=== PATIENT | male | born 1950 | race Caucasian/White ===

== ENCOUNTER 2018-09-25 05:01 | Day surgery (SDC) | payer OTHER, BC ==
[2018-09-25 08:23] VITALS: BMI 27.8
[2018-09-25] MEDS ORDERED: DEXAMETHASONE SOD PHOSPHATE/PF 10 MG/ML SDV ONE (09:15)
[2018-09-25] MEDS ORDERED: ROPIVACAINE HCL 0.5% 30ML VIAL ONE (09:16)
[2018-09-25] MEDS ORDERED: MIDAZOLAM HCL 2 MG/2 ML SINGLE DOSE VIAL ONE ×3 (09:17→10:24)
--- NOTE | 2018-09-25 09:24 | HP ---
Satellite H - Chief Complaint Chief Complaint: left shoulder pain - Past Medical History Allergies/Adverse Reactions: Allergies Allergy/AdvReac Type Severity Reaction Status Date / Time Penicillins Allergy Severe Rash Verified 06/13/18 13:23 - Current Medications Current Medications: Home Medications Medication Instructions Recorded Omeprazole [Prilosec] 40 mg PO DAILY 01/26/12 Valsartan/Hydrochlorothiazide 1 combo PO DAILY 07/08/12 [Diovan Hct 80-12.5 mg Tablet -] Atorvastatin Ca [Lipitor] 10 mg PO DAILY 11/24/13 Budesonide [Rhinocort Aqua] 8.6 gm NS PRN PRN 06/22/14 Olopatadine HCl [Pataday] 1 drop IO DAILY PRN 06/22/14 Ibuprofen [Advil -] 200 mg PO PRN PRN 12/09/14 Oxycodone HCl/Acetaminophen 1 - 2 tab PO Q6H #30 tab MDD 6 09/25/18 [Percocet 5-325 mg Tablet] Satellite Physical Exam - Physical Examination Vital Signs: Vital Signs Period Temp Pulse Resp BP Sys/Carrillo Pulse Ox Last 24 Hr 97.5 F-97.5 F 98-98 18-18 133-133/79-79 98 General Appearance: Well Nourished, Well Developed, Alert & Oriented x3 ENT: Clear Lung: Normal air movement Heart: Regular rate & rhythm Extremities: Other (left shoulder- + ttp, decr rom, + empty can, + neer, + ma, nvi MRI + rct) Neurological: Intact, Alert, Oriented Satellite Impression/Plan - Impression/Plan Impression: left shoulder rct Operative Procedure: left shoulder arthroscopy with RCYELENA Blackwell Date to be Performed: 09/25/18
[2018-09-25] MEDS ORDERED: ceFAZolin SODIUM 1 GM VIAL IVPB ONE (10:05)
[2018-09-25] MEDS ORDERED: ceFAZolin SODIUM 1 GM VIAL ONE (10:08)
[2018-09-25] MEDS ORDERED: KETAMINE HCL 200 MG/20 ML VIAL ONE (10:22)
[2018-09-25] MEDS ORDERED: ESMOLOL HCL 100,000 MCG/10 ML VIAL ONE (10:26)
[2018-09-25] MEDS ORDERED: METOPROLOL TARTRATE 5 MG/5 ML VIAL ONE (10:38)
[2018-09-25] MEDS ORDERED: LABETALOL HCL 5 MG/1 ML (100MG/20 ML VIAL) ONE (10:38)
--- NOTE | 2018-09-25 10:56 | OP ---
Operative Note - Note: Operative Date: 09/25/18 ([facility]) Pre-Operative Diagnosis: left shoulder rct Operation: left shoulder arthroscopy with RCR Implants: arthrex speedbridge Post-Operative Diagnosis: Same as Pre-op Surgeon: Gabe Sanderson Banker Mason: Benoit Martinez Anesthesiologist/ASSOCIATE PROFESSOR OF BIBLICAL STUDIES: Carol Doe Anesthesia: Local, MAC Specimens Removed: shavings Estimated Blood Loss (mls): 5 Operative Report Dictated: Yes
[2018-09-25] MEDS ORDERED: oxyCODONE HCL 5 MG TABLET PO PRN ×2 (11:05)
[2018-09-25] MEDS ORDERED: ONDANSETRON 4 MG/2 ML VIAL IVPUSH PRN (11:05)
[2018-09-25] MEDS ORDERED: ACETAMINOPHEN 1000 MG/100 ML VIAL (NON FORMULARY) IVPB ONE (11:06)
[2018-09-25] MEDS ORDERED: LACTATED RINGERS SOLUTION 1,000 ML IV SCH (11:15)
[2018-09-25] MEDS ORDERED: ACETAMINOPHEN INJECTION 100 ML IVPB ONE (11:40)
--- NOTE | 2018-09-25 11:49 | OP ---
DATE OF OPERATION: 09/25/2018 PREOPERATIVE DIAGNOSIS: Left rotator cuff tear. POSTOPERATIVE DIAGNOSIS: Left rotator cuff tear. PROCEDURE: Arthroscopy of left shoulder with subacromial decompression and left rotator cuff repair. SURGICAL ATTENDING: Gabe Sanderson MD ANESTHESIA: Regional and general. CLOSURE: SpeedBridge for rotator cuff and 3-0 nylon for skin. ESTIMATED BLOOD LOSS: Negligible. COMPLICATIONS: None. CONDITION: To recovery in stable condition. DESCRIPTION OF OPERATIVE PROCEDURE: The patient taken to the operating room on September 25, 2018. Regional and general anesthesia was administered by the anesthesiologist. IV Kefzol was administered prophylactically prior to the case. The patient was placed in the beach chair position with all prominences well padded. The shoulder area was prepped and draped in the usual sterile fashion. A posterior portal was made 2 fingerbreadths below the acromion using a 15 blade followed by a blunt trocar. Examination of the glenohumeral joint revealed the following: There was some deficit in the glenoid articular cartilage on the anterior-inferior quadrant down to bone. The rest of the cartilage looked basically intact. Looking at the humeral head, there was diffuse grade 2-3/3 changes. There were no loose bodies in the axillary pouch. The labrum was intact circumferentially. The biceps tendon was intact through its insertion. Subscapularis tendon was not to be seen in the shoulder joint and was not found. The fluid was drained from the shoulder. Trocar was removed. The posterior trocar was redirected in the subacromial space, and accessory lateral portal was made, and an anterior portal at the AC joint was made. The bursectomy was performed using the ArthroCare device. The surface of the acromion was burred to the appropriate level gaining sufficient height for the rotator cuff. A crescent supraspinatus tear was found. The greater tuberosity was debrided exposing some bleeding bone. Two medial row anchors were malleted and screwed into place with preloaded FiberTape suture. They were passed through the rotator cuff in a fanned out position using Scorpio needle punch and docked anteriorly. One anterior and one posterior limb was fixated to posterior lateral anchor, and 1 anterior and 1 posterior limb was fixated to an anterior lateral row anchor gaining excellent repair of the supraspinatus to the greater tuberosity. Sutures were cut snug. The shoulder was irrigated. Fluid was drained. The portals were closed with 3-0 nylon. Sterile pressure dressing was applied. The patient awakened from anesthesia and transferred to recovery in stable condition with no complication. Estimated blood loss negligible. Sheela [id number]
[2018-09-25 12:34] VITALS: TEMP 97.9
[2018-09-25 13:59] VITALS: BP 109/64; PULSE 102
--- NOTE | 2018-09-27 18:38 | PATH ---
Surgical Pathology Report Patient Name: VINCENT JOYNER JR [facility]. Rec. #: [id number] /Age/Gender: 1950 (Age: 68) / M Account: [id number] Location: [facility] SURGICAL Taken: 09/25/2018 Received: 09/25/2018 Reported: 09/27/2018 Physicians: Gabe Sanderson M.D. Specimen(s) Received LEFT SHOULDER SHAVINGS Clinical History Left shoulder tear Final Diagnosis SHOULDER SHAVINGS, LEFT, ARTHROSCOPY: FRAGMENTS OF BENIGN SCANT CARTILAGE, DENSE FIBROCONNECTIVE TISSUE, ADIPOSE TISSUE, SYNOVIUM, AND SKELETAL MUSCLE. Electronically Signed Penny Arora M.D. Gross Description Received in formalin, labeled "left shoulder shavings," is a 4.0 x 4.0 x 0.3 cm. aggregate of dent-yellow soft tissue fragments. A scheduling representative portion is submitted in one cassette. 09/26/2018 saudi09/26/2018
== END 2018-09-25 14:43 | disposition home or self-care (01) ==
LOC: JASU-SURG 05:01
PROVIDERS: ATTEND Orthopaedic Surgery
PROC: 0RNK4ZZ Release Left Shoulder Joint, Percutaneous Endoscopic Approach (ICD-10-PCS; 2018-09-25)
PROC: 0LQ24ZZ Repair Left Shoulder Tendon, Percutaneous Endoscopic Approach (ICD-10-PCS; principal; 2018-09-25 09:30)
DX: M75.102 Unspecified rotator cuff tear or rupture of left shoulder, not specified as traumatic (principal)
CPT/HCPCS: 88304-TC; 94760; J0131

== ENCOUNTER 2019-05-16 04:19 | Emergency (ER) | payer OTHER, BC ==
[2019-05-16 05:08] VITALS: TEMP 98.6; BMI 27.9
--- NOTE | 2019-05-16 06:11 | PDOC ---
History of Present Illness - General Chief Complaint: Allergic Reaction Stated Complaint: ALLERGIC RX Time Seen by Provider: 05/16/19 05:48 - History of Present Illness Initial Comments: 69yo M with PMH of HTN, HLD, ischemic colitis complaining of "I haven't slept in four days" due to a pruritic rash. Patient reports that he was admitted to [facility] for ischemic colitis where he was medically managed with levaquin and flagyl. Patient had some ankle swelling for which his primary care doctor started him on HCTZ which he has taken for eight days. Patient states the swelling has improved, however, he developed a pruritic rash on his legs, arms, and neck. He saw his primary care physician again yesterday and was prescribed hydroxyzine and prednisone. After taking these medicines, the rash worsened. Patient reports lessened po intake due to the discomfort of his rash. Denies new exposures such as new soaps, lotions, detergents, clothes, pets, or foods. No tongue, lip swelling, oral lesions, scratchy throat. Denies fevers, chills, chest pain, or shortness of breath. PCP: Dr. Gould Past History - Past Medical History Allergies/Adverse Reactions: Allergies Allergy/AdvReac Type Severity Reaction Status Date / Time Penicillins Allergy Severe Rash Verified 05/16/19 05:08 Home Medications: Ambulatory Orders Omeprazole [Prilosec] 40 mg PO DAILY 01/26/12 Valsartan/Hydrochlorothiazide [Diovan Hct 80-12.5 mg Tablet -] 1 combo PO DAILY 07/08/12 Olopatadine HCl [Pataday] 1 drop IO DAILY PRN 06/22/14 Budesonide 8.6 gm NS DAILY 05/16/19 Folic Acid/Mv,Iron,Min/Lutein [Certa Plus Tablet] 1 each PO DAILY 05/16/19 Hydrochlorothiazide [Hctz -] 25 mg PO DAILY 05/16/19 Hydroxyzine HCl 25 mg PO DAILY 05/16/19 Prednisone 10 mg PO DAILY 05/16/19 Anemia: No Asthma: No Cancer: No Cardiac Disorders: No CVA: No COPD: No CHF: No Dementia: No Diabetes: No GI Disorders: Yes (ACID REFLUX) Disorders: No HTN: Yes Hypercholesterolemia: Yes Liver Disease: No Seizures: No Thyroid Disease: No - Surgical History Abdominal Surgery: No (HERNIA SX.) Appendectomy: No Cardiac Surgery: No Cholecystectomy: No Lung Surgery: No Neurologic Surgery: No Orthopedic Surgery: Yes (MAKOPLASTY B/L KNEES) - Suicide/Smoking/Psychosocial Hx Smoking History: Never smoked Have you smoked in the past 12 months: No Number of Cigarettes Smoked Daily: 10 Information on smoking cessation initiated: No 'Breaking Loose' booklet given: 07/09/12 Hx Alcohol Use: No Drug/Substance Use Hx: No Substance Use Type: None Hx Substance Use Treatment: No Review of Systems - Review of Systems Comments:: Constitutional: no fever, no chills HEENT: no throat pain, no dysphagia Cardiovascular: no chest pain, no palpitations Respiratory: no cough, no shortness of breath Gastrointestinal: no abdominal pain, no nausea Genitourinary: no dysuria, no frequency Musculoskeletal: no myalgia, no arthralgia Skin: +rash, +itching Neurologic: no headache, no weakness *Physical Exam - Vital Signs Last Vital Signs Temp Pulse Resp BP Pulse Ox 98.6 F 106 H 20 111/71 96 05/16/19 04:28 05/16/19 04:28 05/16/19 04:28 05/16/19 04:28 05/16/19 04:28 - Physical Exam Comments: General: Awake, alert, and fully oriented, in no acute distress Head: No signs of trauma Eyes: EOMI, sclera anicteric ENT: Moist mucus membranes Neck: Normal ROM, supple Lungs: Lungs clear, Normal breath sounds Cardio: Regular rhythm, S1 and S2 present Abdomen: Soft, nontender Extremities: Normal range of motion, Distal pulses present SKIN: Maculopapular urticarial rash present diffusely on BLE, BUE, and posterior neck with excoriations Neurologic: Cranial nerves II through XII grossly intact. Normal speech Medical Decision Making - Medical Decision Making 69yo M with PMH of HTN, HLD, ischemic colitis complaining of "I haven't slept in four days" due to a pruritic skin rash. DDX including but not limited to allergic reaction, angioedema, anaphylaxis, skin irritation Will treat with benadryl and ranitidine po 05/16/19 06:11 Patient states he prefers IV medicines IV Benadryl, Famotidine, Solu-medrol ordered Plan to reassess 05/16/19 06:53 Patient signed out to Dr. Sanders and xochitl team *DC/Admit/Observation/Transfer Diagnosis at time of Disposition: Allergic reaction Qualifiers: Encounter type: initial encounter Qualified Code(s): T78.40XA - Allergy, unspecified, initial encounter - Discharge Dispostion Disposition: HOME Condition at time of disposition: Improved - Referrals Referrals: Florencia Gould MD [Primary Care Provider] - - Patient Instructions Printed Discharge Instructions: DI for Adverse Drug Reaction -- Allergic Additional Instructions: You came into the ED for a rash. Your symptoms seem consistent with an allergic reaction. We gave you medicine which improved your symptoms. Follow-up with your primary care physician in the next 2-3 days to discuss this ED visit and to further evaluate your symptoms. Call and make an appointment. Your workup is not complete until you do so. Immediate medical attention is required if you have new or worsening symptoms including: Swollen tongue Difficulty breathing A sense of fullness, squeezing, or pressure in the chest Rapid, irregular heartbeat Nausea, vomiting Skin Rash If you think you have an emergency, call for medical help right away. - Post Discharge Activity
[2019-05-16] MEDS ORDERED: RANITIDINE HCL 150 MG TABLET (FP) PO ONE (06:20)
[2019-05-16] MEDS ORDERED: diphenhydrAMINE HCL 50 MG CAPSULE PO ONE (06:20)
[2019-05-16] MEDS ORDERED: diphenhydrAMINE HCL 25 MG CAPSULE (FP) PO ONE (06:34)
[2019-05-16] MEDS ORDERED: RANITIDINE HCL 150 MG TABLET (FP) ONE (06:35)
--- NOTE | 2019-05-16 06:44 | PDOC ---
Attending Attestation - Resident Resident Name: Angie Marin - ED Attending Attestation I have performed the following: I have examined & evaluated the patient, The case was reviewed & discussed with the resident, I agree w/resident's findings & plan, Exceptions are as noted - HPI HPI: 05/16/19 07:31 69M pmh HTN, HLD, ischemic colitis here with pruritic rash on his neck and extremities, most severe on his thighs. PCP sent rx for prednisone and hydroxyzine which worsened the rash. Denies any novel exposures, no sob, cp - Physicial Exam PE: 05/16/19 07:32 - Medical Decision Making 05/16/19 07:32 Consider allergic reaction symptomatic tx re-eval dispo per clinical course
[2019-05-16] MEDS ORDERED: methylPREDNISolone NA SUCC 125 MG/2 ML VIAL IVPUSH ONE (06:45)
[2019-05-16] MEDS ORDERED: FAMOTIDINE 20 MG/50 ML IVPB 20 MG/50 ML MG IVPB ONE ×2 (06:45→07:00)
[2019-05-16] MEDS ORDERED: methylPREDNISolone NA SUCC 125 MG/2 ML VIAL ONE (06:59)
--- NOTE | 2019-05-16 07:43 | PDOC ---
*Physical Exam - Vital Signs Last Vital Signs Temp Pulse Resp BP Pulse Ox 98.6 F 106 H 20 111/71 96 05/16/19 04:28 05/16/19 04:28 05/16/19 04:28 05/16/19 04:28 05/16/19 04:28 - Physical Exam Comments: 05/16/19 07:43 Received sign out from Dr. Marin. ED Treatment Course - Medications Given in the ED: ED Medications Discontinued Medications Generic Name Dose Route Start Last Admin Trade Name Jake PRN Reason Stop Dose Admin Diphenhydramine HCl 25 mg 05/16/19 06:20 05/16/19 06:48 Benadryl - PO 05/16/19 06:21 Not Given ONCE ONE Diphenhydramine HCl 12.5 mg 05/16/19 06:45 05/16/19 07:07 Benadryl Injection - IVPUSH 05/16/19 06:46 12.5 mg ONCE ONE Administration Famotidine/Sodium Chloride 20 mg in 50 mls @ 100 mls/hr 05/16/19 06:45 07:07 Pepcid 20 Mg Premixed Ivpb - IVPB 05/16/19 07:14 100 mls/hr ONCE ONE Administration Methylprednisolone Sodium Succinate 125 mg 05/16/19 06:45 05/16/19 07:07 Solu-Medrol - IVPUSH 05/16/19 06:46 125 mg ONCE ONE Administration Ranitidine HCl 150 mg 05/16/19 06:20 05/16/19 06:48 Zantac - PO 05/16/19 06:21 Not Given ONCE ONE *DC/Admit/Observation/Transfer Diagnosis at time of Disposition: Allergic reaction Qualifiers: Encounter type: initial encounter Qualified Code(s): T78.40XA - Allergy, unspecified, initial encounter - Discharge Dispostion Disposition: HOME Decision to Admit order: No - Referrals Referrals: Florencia Gould MD [Primary Care Provider] - - Patient Instructions Printed Discharge Instructions: DI for Adverse Drug Reaction -- Allergic Additional Instructions: You came into the ED for a rash. Your symptoms seem consistent with an allergic reaction. We gave you medicine which improved your symptoms. Prescription sent to your pharmacy. Follow-up with your primary care physician in the next 2-3 days to discuss this ED visit and to further evaluate your symptoms. Call and make an appointment. Your workup is not complete until you do so. Immediate medical attention is required if you have new or worsening symptoms including: Swollen tongue Difficulty breathing A sense of fullness, squeezing, or pressure in the chest Rapid, irregular heartbeat Nausea, vomiting Skin Rash If you think you have an emergency, call for medical help right away. - Post Discharge Activity
[2019-05-16 08:48] VITALS: BP 138/74; PULSE 84
== END 2019-05-16 07:45 | disposition home or self-care (01) ==
LOC: JER 04:19
PROC: 3E033GC Introduction of Other Therapeutic Substance into Peripheral Vein, Percutaneous Approach (ICD-10-PCS; principal; 2019-05-16)
PROC: 3E033GC Introduction of Other Therapeutic Substance into Peripheral Vein, Percutaneous Approach (ICD-10-PCS; 2019-05-16)
PROC: 3E0333Z Introduction of Anti-inflammatory into Peripheral Vein, Percutaneous Approach (ICD-10-PCS; 2019-05-16)
DX: T78.40XA Allergy, unspecified, initial encounter (principal); X58.XXXA Exposure to other specified factors, initial encounter
CPT/HCPCS: 96365; 96375; 99283-25

== ENCOUNTER 2019-05-28 11:18 | Day surgery (SDC) | payer OTHER, BC ==
[~2019-05-28 11:18] MED LIST: FERRIC CARBOXYMALTOSE 750 MG in SODIUM CHLORIDE 250 ML IVPB ONE
[2019-05-28] MEDS ORDERED: diphenhydrAMINE HCL 25 MG CAPSULE (FP) PO ONE (12:04)
[2019-05-28 14:29] VITALS: BP 140/74; PULSE 98; TEMP 97.8
== END 2019-05-28 14:00 | disposition home or self-care (01) ==
LOC: JINFUSION 11:18
PROVIDERS: ATTEND Family Medicine
PROC: 3E033GC Introduction of Other Therapeutic Substance into Peripheral Vein, Percutaneous Approach (ICD-10-PCS; principal; 2019-05-28)
DX: D64.9 Anemia, unspecified (principal)
CPT/HCPCS: 96365; J1439

== ENCOUNTER 2019-06-05 10:27 | Day surgery (SDC) | payer OTHER, BC | END 2019-06-05 12:55 | disposition home or self-care (01) | LOC: JINFUSION 10:27 ==

== ENCOUNTER 2019-12-20 08:18 | Emergency (ER) | payer OTHER, BC ==
[2019-12-20 08:31] VITALS: BMI 29.5
--- NOTE | 2019-12-20 08:40 | PDOC ---
History of Present Illness - General Chief Complaint: Injury Stated Complaint: FALL Time Seen by Provider: 12/20/19 08:39 History Source: Patient Exam Limitations: No Limitations - History of Present Illness Initial Comments: 12/20/19 08:39 PCP: Dr. Gould HPI: 69yo M pmh htn, hld, ischemic colitis, presenting s/p trip and fall yesterday evening. Patient was at home, walking across the room when he tripped over a pile of laundry, striking his head against the wall. He quickly developed a large, purple hematoma. Denies LOC, headache, prodromal syndrome / pain. Now without complaint, requesting evaluation of his periorbital ecchymosis that he noticed had developed when looking in the mirror at 3AM with resolution of his forehead hematoma. Not on any blood thinners, no known clotting disorders. No history of GIB or ICH. Denies N / V / Headache / Visual changes / AMS at the current time. All: PCN PMH: As above PSH: Ortho with Dr. Sanderson Past History - Past Medical History Allergies/Adverse Reactions: Allergies Allergy/AdvReac Type Severity Reaction Status Date / Time Penicillins Allergy Severe Rash Verified 12/20/19 08:26 Home Medications: Ambulatory Orders Omeprazole [Prilosec] 40 mg PO DAILY 01/26/12 Olopatadine HCl [Pataday] 1 drop IO PRN PRN 06/22/14 Budesonide 8.6 gm NS PRN 05/16/19 Folic Acid/Mv,Iron,Min/Lutein [Certa Plus Tablet] 1 each PO DAILY 05/16/19 Prednisone 10 mg PO DAILY 05/16/19 Anemia: No Asthma: No Cancer: No Cardiac Disorders: No CVA: No COPD: No CHF: No Dementia: No Diabetes: No GI Disorders: Yes (ACID REFLUX) Disorders: No HTN: Yes Hypercholesterolemia: Yes Liver Disease: No Seizures: No Thyroid Disease: No - Surgical History Abdominal Surgery: No (HERNIA SX.) Appendectomy: No Cardiac Surgery: No Cholecystectomy: No Lung Surgery: No Neurologic Surgery: No Orthopedic Surgery: Yes (MAKOPLASTY B/L KNEES) - Psycho Social/Smoking Cessation Hx Smoking History: Never smoked Have you smoked in the past 12 months: No Number of Cigarettes Smoked Daily: 10 Information on smoking cessation initiated: No 'Breaking Loose' booklet given: 07/09/12 Hx Alcohol Use: No Drug/Substance Use Hx: No Substance Use Type: None Hx Substance Use Treatment: No Review of Systems - Review of Systems Able to Perform ROS?: Yes Is the patient limited Italian proficient: Yes Constitutional: No: Chills, Fever HEENTM: No: Recent change in vision, Double Vision, Ear Pain, Nose Pain, Nose Congestion, Nose Bleeding, Throat Pain, Throat Swelling Respiratory: No: Cough, Shortness of Breath Cardiac (ROS): No: Chest Pain, Irregular Heart Rate, Lightheadedness, Palpitations, Syncope, Chest Tightness ABD/GI: No: Constipated, Diarrhea, Nausea, Vomiting : No: Burning, Dysuria, Frequency Musculoskeletal: No: Muscle Pain, Muscle Weakness, Neck Pain Integumentary: No: Pruritus, Rash Neurological: No: Headache, Numbness, Tingling, Weakness Psychiatric: No: Change in Appetite Hematologic/Lymphatic: No: Anemia, Blood Clots, Easy Bleeding All Other Systems: Reviewed and Negative *Physical Exam - Vital Signs Last Vital Signs Temp Pulse Resp BP Pulse Ox 97.6 F 128 H 18 130/77 98 12/20/19 08:27 12/20/19 08:27 12/20/19 08:27 12/20/19 08:27 12/20/19 08:27 - Physical Exam 12/20/19 09:35 Vitals reviewed, AFVSS GEN: Well appearing, appears stated age, NAD, comfortable. AAOx3. HEENT: Large forehead ecchymosis, bilateral periorbital ecchymosis, EOMI, PERRL , negative juarez sign, no hemotympanum. Sclera anicteric, non-injected. MMM. Normal voice. CV: RRR, S1/S2, no murmurs / rubs / gallops appreciated. LUNG: CTAB, normal work of breathing. No wheezes, rales, rhonchi. No cough. Speaking full sentences. GI: Soft, NTND, +BS, no guarding, no rebound. No masses. Neg CVAT b/l. EXTREMITIES: 2+ distal pulses. No LE edema. No obvious deformities of all extremities. SKIN: Warm, dry, no rashes appreciated, non-jaundiced. PSYCH: Normal mood and affect. Cooperative and appropriate. NEURO: CN 2-12 intact. Moving all extremities well. Normal strength and sensation grossly. BACK: Non-tender neck / C-spine. Medical Decision Making - Medical Decision Making 12/20/19 09:38 69yo M pmh htn, hld, ischemic colitis, presenting s/p trip and fall yesterday evening. History notable for mechanical trip and fall with large forehead hematoma, 4-5 hours late with keith-orbital ecchymosis development and hematoma reduction. Exam notable for ecchymosis, no juarez sign or hemotympanum. DDX: Hematoma drainage and ecchymosis vs skull fracture. - NCHCT, C-spine 12/20/19 10:31 - No ICH on NCHCT - C-spine with chronic C4/C5 misalignment Dispo: Home 12/20/19 11:18 - Patient remains tachy to 108 (active / rambunctious in the department) - EKG ordered 12/20/19 11:36 - 108, NSR, normal axis, QTc 482, RBBB (reportedly old), no ST changes Dispo: Home Discharge - Discharge Information Problems reviewed: Yes Clinical Impression/Diagnosis: Ecchymosis of eye Qualifiers: Encounter type: initial encounter Laterality: unspecified laterality Qualified Code(s): S05.10XA - Contusion of eyeball and orbital tissues, unspecified eye, initial encounter Fall Qualifiers: Encounter type: initial encounter Qualified Code(s): W19.XXXA - Unspecified fall, initial encounter Condition: Stable Disposition: HOME - Admission No - Follow up/Referral Referrals: Florencia Gould MD [Primary Care Provider] - - Patient Discharge Instructions Patient Printed Discharge Instructions: How to Prevent Falls Additional Instructions: You were seen and evaluated at [facility] after a fall. Your CT scans were negative for a bleed or fracture. Please continue your home medications as prescribed. Follow up with Dr. Gould on Sunday morning. Return to the ED for any new or concerning symptoms. - Post Discharge Activity
--- NOTE | 2019-12-20 11:09 | PDOC ---
Documentation entered by Hari Alfaro SCRIBE, acting as scribe for Yunior Barone MD. Yunior Barone MD: This documentation has been prepared by the Dominic bonds Angel, SCRIBE, under my direction and personally reviewed by me in its entirety. I confirm that the documentation accurately reflects all work, treatment, procedures, and medical decision making performed by me. Attending Attestation - Resident Resident Name: Jorge Jaramillo - ED Attending Attestation I have performed the following: I have examined & evaluated the patient, The case was reviewed & discussed with the resident, I agree w/resident's findings & plan, Exceptions are as noted - HPI HPI: 12/20/19 10:02 The patient is 69 year old with a significant past medical history of HTN, HLD and ischemic colitis who presents to the ED with frontal hematoma and periorbital ecchymosis s/p fall yesterday evening. Patient states he was walking across the room when he tripped over a pile of laundry and hit his head against the wall. Patient denies LOC, headache, visual changes/double vision. Denies chest pain, shortness of breath. Denies fever, cough, nausea, vomiting, diarrhea, abdominal pain. Denies urinary symptoms. Allergies: NKDA Surgical history: Makoplasty b/l Knees PCP: Dr. Gould - Physicial Exam PE: 12/20/19 11:06 EXAMINATION CONSTITUTIONAL: awake, alert; in no apparent distress HEAD: Normocephalic; Large frontal hematoma without bony crepitus or step-offs EYES: PERRL; EOM intact; Bilateral periorbital ecchymoses, no orbital tenderness to palpation or step-off; negative for entrapment ENMT: External appears normal; No dental malocclusion or intraoral hemorrhage identified NECK: Supple; non-tender; CARD: Tachycardic;Normal S1, S2; no murmurs, rubs, or gallops RESP: Normal chest excursion with respiration; breath sounds clear and equal bilaterally; no wheezes, rhonchi, or rales; No chest wall tenderness to palpation ABD: Soft, non-distended; non-tender; no palpable organomegaly, no palpable hernias; Pelvis is stable EXT: Normal ROM in all four extremities; non-tender to palpation; distal pulses intact; SKIN: Warm, dry, no rash NEURO: No focal neurological deficiencies. Ambulates without assistance 12/20/19 11:08 - Medical Decision Making 12/20/19 11:08 69-year-old male presents with evidence of traumatic head injury status post fall. CT of head and cervical spine shows no evidence of acute intracranial or C-spine pathology. [id number]. Will recheck vital signs. If normalized, likely discharge with outpatient follow-up.
[2019-12-20 11:53] VITALS: BP 157/87; PULSE 96; TEMP 97.5
--- NOTE | 2019-12-22 10:04 | EKG ---
Test Reason : Blood Pressure : / mmHG Vent. Rate : 108 BPM Atrial Rate : 108 BPM P-R Int : 166 ms QRS Dur : 128 ms QT Int : 360 ms P-R-T Axes : 039 -16 022 degrees QTc Int : 482 ms SINUS TACHYCARDIA POSSIBLE LEFT ATRIAL ENLARGEMENT RIGHT BUNDLE BRANCH BLOCK ABNORMAL ECG NO PREVIOUS ECGS AVAILABLE Confirmed by Tu Landis ([id number]) on 12/22/2019 10:04:13 AM Referred By: Confirmed By:uT Landis
== END 2019-12-20 11:59 | disposition home or self-care (01) ==
LOC: JER 08:18
DX: S00.83XA Contusion of other part of head, initial encounter (principal); S05.12XA Contusion of eyeball and orbital tissues, left eye, initial encounter; S05.11XA Contusion of eyeball and orbital tissues, right eye, initial encounter; W01.198A Fall on same level from slipping, tripping and stumbling with subsequent striking against other object, initial encounter; Y93.89 Activity, other specified; Y92.038 Other place in apartment as the place of occurrence of the external cause; Y99.8 Other external cause status; I10 Essential (primary) hypertension; E78.5 Hyperlipidemia, unspecified; K21.9 Gastro-esophageal reflux disease without esophagitis; Z87.19 Personal history of other diseases of the digestive system
CPT/HCPCS: 70450-TC; 72125-TC; 93005; 93010; 99284-25

== ENCOUNTER 2020-05-26 11:19 | Day surgery (SDC) | payer OTHER, BC ==
[2020-05-25 11:36] VITALS: BMI 26.5
[2020-05-26 11:40] LABS: EOS % 0.4 % (0-4.5); HEMATOCRIT 26.8 % (35.4-49); HEMOGLOBIN 7.9 GM/dL (11.7-16.9); MCH 24.1 pg (25.7-33.7); MCHC 29.6 g/dl (32.0-35.9); MEAN CELL VOLUME 81.6 fl (80-96); MEAN PLT VOLUME 9.3 fl (7.5-11.1); MONO % 0.9 % (3.8-10.2); NEUT % 91.7 % (42.8-82.8); PLATELET COUNT 46 K/MM3 (134-434); RBC 3.29 M/mm3 (4.00-5.60); RDW 17.5 % (11.9-15.9)
[2020-05-26 11:52] LABS: INR 1.32 (0.83-1.09); PROTHROMBIN TIME (PATIENT) 15.6 SEC (9.7-13.0)
[2020-05-26] MEDS ORDERED: SODIUM CHLORIDE 0.9%/KCL 20 MEQ/1,000 ML INFUS.BAG IV SCH (12:15)
[2020-05-26 14:25] LABS: ANISOCYTOSIS 0; MACROCYTOSIS 0; PLATELET ESTIMATE DECREASED
[2020-05-26 15:04] VITALS: TEMP 98
[2020-05-26 16:22] VITALS: BP 128/74; PULSE 84
--- NOTE | 2020-06-04 16:27 | PATH ---
Surgical Pathology Report Patient Name: VINCENT JOYNER JR [facility]. Rec. #: [id number] /Age/Gender: 1950 (Age: 70) / M Account: [id number] Location: RADIOLOGY INTER Taken: 05/26/2020 Received: 05/26/2020 Reported: 06/04/2020 Physicians: Sheela Lagunas M.D. Specimen(s) Received A: BONE MARROW BIOPSY B: BONE MARROW CLOT C: BONE MARROW ASPIRATION SMEARS D: BONE MARROW BLOOD Clinical History Anemia, hypertension, hyper cholesterolemia, acid reflux, myeloproliferative disorder Final Diagnosis BONE MARROW MORPHOLOGY performed and interpreted at [facility] ([id number]) shows the following: DIAGNOSIS: Bone marrow, core, clot, and aspirate smears: Markedly hypercellular marrow for age (>95%) with increased blasts (myeloblasts, monoblasts, and promonocytes, about 16-18% of total cellularity), marked myelomonocytic hyperplasia with dysplasia, consistent with chronic myelomonocytic leukemia-2 (CMML-2). Absence of stainable iron storage. Marked increase in reticulin fibers (3+ in a 0-3 scale). COMMENT: The findings are consistent with CMML-2. Of note, the number of blasts is near 20%, therefore borderline with a diagnosis of acute myelomonocytic leukemia. Ancillary tests are pending. Clinical correlation and follow up are suggested. See [facility] report for additional details ([id number]) Case discussed with Dr. Petersen on 06/04/2020. [facility] [place] ([id number]) shows the following: INTERPRETATION: CHRONIC MYELOPROLIFERATIVE NEOPLASM, 12% BLAST (SEE COMMENT). PHENOTYPE: A prominent population of blasts detected, comprising approximately 12% of analyzed white blood cells, expressing CD34, CD117, CD13, CD33, CD38, and negative for CD11b, CD64, and lymphoid markers. Lymphocytes include polyclonal B cells, NK cells and immuno phenotypically normal CD4+ and CD8+ T cells in normal proportions. No evidence of a clonal lymphoid expansion. Cytomorphology: Bone marrow aspirate with increased blasts. . They are of medium size, few showing monocytic differentiation or cup-like nuclear inclusions. COMMENT: History of chronic myeloproliferative neoplasm is noted. Please correlate with the bone marrow findings and genetic findings for further characterization. See [facility] report for additional details. MYELOPROLIFERATIVE NEOPLASM FISH PANEL performed and interpreted at [place], [place] ([id number]) shows the following: INTERPRETATION: No evidence of deletion 7q or monosomy 7 is present. No evidence of trisomy 8 (+8) is present. No evidence of deletion 20q12 is present. No BCR/ABL1 t(9;22) translocation is detected. COMMENTS: Prior FISH study ([id number]) performed in April .was negative for BCR/ABL1 t(9;22) translocation. Correlation with pending cytogenetics ([id number]) is recommended. Four multiplex probe stain procedures were perform See [facility] report for additional details. CYTOGENETIC KARYOTYPE ANALYSIS performed and interpreted at [facility] ([id number]) shows the following: RESULTS: 46, XY [20] INTERPRETATION: Normal Karyotype Within the limits of the cytogenetic methods, the chromosomes had normal G-banding patterns with no evidence of an acquired clonal numerical or structural abnormality. This normal result does not rule out a neoplasm. Subtle rearrangements or the presence of an aberrant clone in a low proportion of cells cannot be ruled out. Correlation with other clinical and hematologic data is suggested Analysis was performed on cells from a tissue culture that was stimulated with lymphoid mitogens. See [facility] report for additional details. BCR-ABL GENE REARRANGEMENT (IS) ANALYSIS performed and interpreted at [place], [place] ([id number]) shows the following: RESULTS: Negative BCR/ABL Major breakpoints (b2a2 and b3a2): Not Detected BCR/ABL Minor breakpoint (e1a2): Not Detected INTERPRETATION: No BCR-ABL translocation was detected in this sample. See [facility] report for additional details. JAK2 (V617F Mutation Analysis performed and interpreted at [place], [place] ([id number])shows the following: RESULTS: JAK2 V617F Mutation Status: Not Detected INTERPRETATION: Negative for JAK2 (V617F) Mutation. See [facility] report for additional details. Electronically Signed Nitesh Gomez M.D. Gross Description A. Received in formalin labeled "bone marrow biopsy," is a 0.6 x 0.5 x 0.1 cm aggregate of dent bone fragments admixed with blood clot. The formalin is filtered and the specimen is entirely submitted in one cassette, following decalcification. B. Received in formalin labeled "bone marrow biopsy clot," is a 2.5 x 2.5 x 0.2 cm aggregate of red-brown blood clot. The formalin is filtered and the specimen is entirely submitted in one cassette. C. Received are 10 bone marrow aspiration smear slides. D. Received are 2 green top tubes and 2 lavender top tubes of bone marrow blood which are sent to [facility]. SYBIL05/26/2020 areli05/26/2020
== END 2020-05-26 16:15 | disposition home or self-care (01) ==
LOC: JRADIR 11:19
PROVIDERS: ATTEND Internal Medicine Hematology & Oncology
PROC: 07DR3ZX Extraction of Iliac Bone Marrow, Percutaneous Approach, Diagnostic (ICD-10-PCS; principal; 2020-05-26)
DX: C94.6 Myelodysplastic disease, not elsewhere classified (principal)
CPT/HCPCS: 20225; 36415; 76098-TC-FY; 76380-TC; 85025; 85610; 87899; 88300-TC; 88305-TC; 88311-TC; 88313-TC

== ENCOUNTER 2020-06-13 17:31 | Inpatient (IN) | payer OTHER, BC ==
--- NOTE | 2020-06-13 18:12 | PDOC ---
History of Present Illness - General Stated Complaint: SHORTNESS OF BREATH Time Seen by Provider: 06/13/20 17:44 History Source: Patient - History of Present Illness Initial Comments: 06/13/20 18:36 70M w/hx HTN, HLD, CML with recent development of AML p/w 4 days of worsening shortness of breath. He reports worsening orthopnea alongside bilateral lower extremity swelling for the last 4 days. He reports that he "always has a fast heart rate". He is scheduled for inpatient chemotherapy with Dr. Petersen starting tomorrow morning. He reports being unable to sleep for the last several weeks, worsened recently due to the shortness of breath. He denies any chest pain, fevers, chills, confusion, nausea, or vomiting. Oncologist: Dr. Petersen Past History - Medical History Allergies/Adverse Reactions: Allergies Allergy/AdvReac Type Severity Reaction Status Date / Time Penicillins Allergy Severe Rash Verified 12/20/19 08:26 Home Medications: Ambulatory Orders Omeprazole [Prilosec] 40 mg PO DAILY 01/26/12 Budesonide 8.6 gm NS PRN 05/16/19 Allopurinol [Zyloprim -] 100 mg PO DAILY 05/25/20 Colchicine 0.6 mg PO BID 05/25/20 Famotidine [Acid Parts Inspector] 10 mg PO ASDIR 05/25/20 Propylene Glycol/Peg 400/Pf [Systane 0.3-0.4% Eye Drops] 1 each OP DAILY 05/25/20 Atorvastatin Ca [Lipitor] 20 mg PO DAILY 05/26/20 Lisinopril 10 mg PO DAILY 05/26/20 Metoprolol Tartrate 50 mg PO DAILY 05/26/20 Anemia: No Asthma: No Cancer: No Cardiac Disorders: No CVA: No COPD: No CHF: No Dementia: No Diabetes: No GI Disorders: Yes (ACID REFLUX) Disorders: No HTN: Yes Hypercholesterolemia: Yes Liver Disease: No Seizures: No Thyroid Disease: No - Surgical History Abdominal Surgery: No (HERNIA SX.) Appendectomy: No Cardiac Surgery: No Cholecystectomy: No Lung Surgery: No Neurologic Surgery: No Orthopedic Surgery: Yes (MAKOPLASTY B/L KNEES) - Psycho-Social/Smoking History Smoking History: Never smoked Have you smoked in the past 12 months: No Number of Cigarettes Smoked Daily: 10 If you are a former smoker, when did you quit?: 6 MONTHS AGO 'Breaking Loose' booklet given: 07/09/12 ED Treatment Course - LABORATORY CBC & Chemistry Diagram: 06/13/20 18:20 06/13/20 18:20
[2020-06-13 18:28] LABS: MCH 24.2 pg (25.7-33.7); MCHC 29.3 g/dl (32.0-35.9); MEAN CELL VOLUME 82.8 fl (80-96); PLATELET COUNT 83 K/MM3 (134-434); RBC 2.54 M/mm3 (4.00-5.60); RDW 18.8 % (11.9-15.9)
[2020-06-13 18:52] LABS: ALBUMIN 2.5 g/dl (3.4-5.0); ALK PHOS 293 U/L (45-117); ANION GAP 9 MMOL/L (8-16); BILIRUBIN,TOTAL 0.6 mg/dL (0.2-1); BLOOD UREA NITROGEN 16.4 mg/dL (7-18); CALCIUM 8.3 mg/dL (8.5-10.1); CHLORIDE 101 mmol/L (98-107); CO2 25 mmol/L (21-32); CREATININE 1.4 mg/dL (0.55-1.3); GLUCOSE,RANDOM 92 mg/dL (74-106); POTASSIUM 3.7 mmol/L (3.5-5.1); SGOT/AST 46 U/L (15-37); SGPT/ALT 11 U/L (13-61); SODIUM 134 mmol/L (136-145); TOT PROT 7.1 g/dl (6.4-8.2)
[2020-06-13 18:53] LABS: VENOUS PCO2 37.7 mmHg (38-52); VENOUS PH 7.363 (7.310-7.410)
--- NOTE | 2020-06-13 18:56 | PDOC ---
Documentation entered by Dago Henson SCRIBE, acting as scribe for Shankar Boogie MD. Shankar Boogie MD: This documentation has been prepared by the sophyibe, Dago Henson SCRIBE, under my direction and personally reviewed by me in its entirety. I confirm that the documentation accurately reflects all work, treatment, procedures, and medical decision making performed by me. Attending Attestation - Resident Resident Name: SantanaWilbur - ED Attending Attestation I have performed the following: I have examined & evaluated the patient, The case was reviewed & discussed with the resident, I agree w/resident's findings & plan, Exceptions are as noted - HPI HPI: 06/13/20 18:54 The patient is a 70 year old male with a significant past medical history of AML, gout, sleep apnea, anemia, GERD, HTN, HLD, and ischemic colitis who presents to the emergency department for evaluation of shortness of breath that began four days ago. The patient reports associated generalized weakness and bilateral lower extremity edema. He notes right upper quadrant pain and generalized abdominal discomfort secondary to abdominal distension for a few months associated with trouble sleeping. At baseline, the patient reports sleeping with multiple pillows due to sleep apnea. The patient denies chest/back pain and cough. Denies fever, chills, nausea, vomiting, and/or any GI symptoms. Denies any symptoms. Denies any other symptoms. Allergies: penicillins Surgical history: Makoplasty b/l Knees PCP: Dr. Gould - Physicial Exam PE: 06/13/20 18:16 Vitals: Triage Vital signs reviewed General Appearance: no acute distress, well nourished well developed, Head: Atraumatic, normocephalic Neck: Supple;No Nuchal rigidity Chest Wall: Nontender Cardiac: Regular rate and rhythm, no murmurs, no rubs, no gallops, Lungs: +bilateral crackles at the bases Abdomen: Soft, nondistended, normal bowel sounds, nontender to palpation Rectal: Exam deferred Extremities: + 2+ pitting edema in bilateral lower extremities. Full range of motion to all extremities, no cyanosis, clubbing. Skin: Warm and dry, no rashes or lesions, no petechiae Neuro: Strength intact to all extremities, Sensation intact to all extremities Psych: normal mood, normal affect - Medical Decision Making 06/13/20 18:57 70 years old past medical history significant for AML gout sleep apnea GERD hypertension hyperlipidemia ischemic colitis presents with 4-day history of progressively worsening shortness of breath history and examination most consistent with volume overload and cysts congestive heart failure however given history of active cancer will obtain CTA to rule out PE Dr. Perez to follow-up labs CAT scan reassess and admit Discharge - Discharge Information Problems reviewed: Yes Clinical Impression/Diagnosis: Shortness of breath - Follow up/Referral - Patient Discharge Instructions - Post Discharge Activity
[2020-06-13 19:01] LABS: HEMOGLOBIN 6.2 GM/dL (11.7-16.9); WHITE BLOOD COUNT 189.4 K/mm3 (4.0-10.0)
[2020-06-13 21:23] LABS: ANISOCYTOSIS 1+; MACROCYTOSIS 1+
[2020-06-13 21:24] LABS: PLATELET ESTIMATE SLT DECREASE
--- NOTE | 2020-06-13 23:55 | HP ---
Admitting History and Physical - Primary Care Physician PCP: Florencia Gould - Admission Chief Complaint: SOB, Generalized Weakness, Insomnia History of Present Illness: This is a 70 y/o male with a PMHx of HTN, HLD, CML with recent development of AML. Who presents to the ED for progressive shortness of breath, orthopnea, and bilateral LE edema and generalized weakness x 4 days. He reports having chronic palpitations. He reports having insomnia x several weeks, worse due to his SOB. He is scheduled for inpatient chemotherapy with Dr. Petersen starting tomorrow morning. He denies fevers, chills, dizziness, SOSA, CP, AP, N/V/D, dysuria. Patient denies sick contacts or recent travel. History Source: Patient, Family Member Limitations to Obtaining History: Clinical Condition - Past Medical History Cardiovascular: Yes: HTN, Hyperlipdemia Gastrointestinal: Yes: GERD, Other (Ischemic Colitis) Heme/Onc: Yes: Thrombocytopenia, Other (CML/AML) - Past Surgical History Past Surgical History: Yes: Arthrosocopy (Left Shoulder) - Smoking History Smoking history: Former smoker (1PPD x 15 yrs) Have you smoked in the past 12 months: No Aproximately how many cigarettes per day: 10 If you are a former smoker, when did you quit?: 6 MONTHS AGO - Alcohol/Substance Use Hx Alcohol Use: No History of Substance Use: reports: None - Social History Usual Living Arrangement: Yes: Alone ADL: Independent History of Recent Travel: No Home Medications - Allergies Allergies/Adverse Reactions: Allergies Allergy/AdvReac Type Severity Reaction Status Date / Time Penicillins Allergy Severe Rash Verified 12/20/19 08:26 - Home Medications Home Medications: Ambulatory Orders Omeprazole [Prilosec] 40 mg PO DAILY 01/26/12 Budesonide 8.6 gm NS PRN 05/16/19 Allopurinol [Zyloprim -] 100 mg PO DAILY 05/25/20 Colchicine 0.6 mg PO BID 05/25/20 Famotidine [Acid Breaker Hand] 10 mg PO ASDIR 05/25/20 Propylene Glycol/Peg 400/Pf [Systane 0.3-0.4% Eye Drops] 1 each OP DAILY 05/25/20 Atorvastatin Ca [Lipitor] 20 mg PO DAILY 05/26/20 Lisinopril 10 mg PO DAILY 05/26/20 Metoprolol Tartrate 50 mg PO DAILY 05/26/20 Family Medical History Family History: As Documented Family Hx Cancer: Sister (Hodgkin's Lymphoma- age 24) Review of Systems - Review of Systems Constitutional: reports: Loss of Appetite, Weakness Eyes: reports: No Symptoms HENT: reports: No Symptoms Neck: reports: No Symptoms Cardiovascular: reports: Palpitations, Shortness of Breath Respiratory: reports: Orthopnea, SOB, SOB on Exertion Gastrointestinal: reports: No Symptoms Genitourinary: reports: No Symptoms Breasts: reports: No Symptoms Reported Musculoskeletal: reports: No Symptoms Integumentary: reports: No Symptoms Neurological: reports: Weakness Endocrine: reports: No Symptoms Hematology/Lymphatic: reports: No Symptoms Psychiatric: reports: No Symptoms Physical Examination Vital Signs: Vital Signs Temperature 98.8 F 06/13/20 17:32 Pulse Rate 117 H 06/13/20 21:07 Respiratory Rate 28 H 06/13/20 21:07 Blood Pressure 126/58 L 06/13/20 21:07 O2 Sat by Pulse Oximetry (%) 100 06/13/20 21:07 Constitutional: Yes: Mild Distress, Pallor Eyes: Yes: Conjunctiva Clear (pale), EOM Intact, PERRL HENT: Yes: Other (dry mucous membranes) Neck: Yes: Supple, Trachea Midline Cardiovascular: Yes: Tachycardia, S1, S2 Respiratory: Yes: Diminished, On Nasal O2, SOB, SOB on Exertion Gastrointestinal: Yes: Normal Bowel Sounds, Distention, Palpable Mass. No: Tenderness, Tenderness, Epigastrium ...Rectal Exam: Yes: Guaiac Negative, Sphincter Tone Normal Renal/: Yes: WNL Breast(s): Yes: WNL Musculoskeletal: Yes: WNL Extremities: Yes: WNL Edema: Yes Edema: LLE: 2+, RLE: 2+ Peripheral Pulses WNL: Yes Neurological: Yes: Alert, Oriented, Cran Nerves II-XII Intact ...Motor Strength: WNL Psychiatric: Yes: Alert, Oriented Labs: CBC, BMP 06/13/20 18:20 06/13/20 18:20 Laboratory Results - last 24 hr 06/13/20 06/13/20 06/13/20 17:57 17:57 18:20 WBC 189.4 H* RBC 2.54 L Hgb 6.2 L* Hct 21.0 L D MCV 82.8 MCH 24.2 L MCHC 29.3 L RDW 18.8 H Plt Count 83 L D MPV 10.0 Absolute Neuts (auto) No Result Required. Total Counted 100 Neutrophils % No Result Required. Neutrophils % (Manual) 37.0 L Band Neutrophils % 2.0 Lymphocytes % No Result Required. Lymphocytes % (Manual) 5.0 L Monocytes % (Manual) 14 H Basophils % (Manual) 1.0 Myelocytes % (Man) 5 H D Promyelocytes % (Man) 4 H Blast Cells % (Manual) 30 H Nucleated RBC % 3 H Metamyelocytes 2 Differential Comment Man diff performed Platelet Estimate Slt decrease Platelet Comment Slide scanned. Polychromasia 1+ Basophilic Stippling 1+ Anisocytosis 1+ Microcytosis 1+ Macrocytosis 1+ D-Dimer 38057 H VBG pH 7.363 POC VBG pCO2 37.7 L POC VBG pO2 27.7 L VBG HCO3 21.0 L VBG O2 Sat (Danis) 50.0 L VBG Base Excess -4.0 L Sodium Potassium Chloride Carbon Dioxide Anion Gap BUN Creatinine Est GFR (CKD-EPI)AfAm Est GFR (CKD-EPI)NonAf Random Glucose Calcium Total Bilirubin AST ALT Alkaline Phosphatase Troponin I B-Natriuretic Peptide Total Protein Albumin Urine Color Urine Appearance Urine pH Ur Specific Doerun Urine Protein Urine Glucose (UA) Urine Ketones Urine Blood Urine Nitrite Urine Bilirubin Urine Urobilinogen Ur Leukocyte Esterase Urine WBC (Auto) Urine Casts (Auto) U Epithel Cells (Auto) Urine Bacteria (Auto) Stool Occult Blood Blood Type Antibody Screen Crossmatch 06/13/20 06/13/20 06/13/20 18:20 18:20 21:00 WBC RBC Hgb Hct MCV MCH MCHC RDW Plt Count MPV Absolute Neuts (auto) Total Counted Neutrophils % Neutrophils % (Manual) Band Neutrophils % Lymphocytes % Lymphocytes % (Manual) Monocytes % (Manual) Basophils % (Manual) Myelocytes % (Man) Promyelocytes % (Man) Blast Cells % (Manual) Nucleated RBC % Metamyelocytes Differential Comment Platelet Estimate Platelet Comment Polychromasia Basophilic Stippling Anisocytosis Microcytosis Macrocytosis D-Dimer VBG pH POC VBG pCO2 POC VBG pO2 VBG HCO3 VBG O2 Sat (Danis) VBG Base Excess Sodium 134 L Potassium 3.7 Chloride 101 Carbon Dioxide 25 Anion Gap 9 BUN 16.4 Creatinine 1.4 H Est GFR (CKD-EPI)AfAm 58.17 Est GFR (CKD-EPI)NonAf 50.19 Random Glucose 92 Calcium 8.3 L Total Bilirubin 0.6 AST 46 H ALT 11 L Alkaline Phosphatase 293 H Troponin I < 0.02 B-Natriuretic Peptide 5172.7 H Total Protein 7.1 Albumin 2.5 L Urine Color Urine Appearance Urine pH Ur Specific Doerun Urine Protein Urine Glucose (UA) Urine Ketones Urine Blood Urine Nitrite Urine Bilirubin Urine Urobilinogen Ur Leukocyte Esterase Urine WBC (Auto) Urine Casts (Auto) U Epithel Cells (Auto) Urine Bacteria (Auto) Stool Occult Blood Blood Type O POSITIVE Antibody Screen Negative Crossmatch See Detail 06/14/20 06/14/20 06/14/20 00:01 01:10 01:10 WBC RBC Hgb Hct MCV MCH MCHC RDW Plt Count MPV Absolute Neuts (auto) Total Counted Neutrophils % Neutrophils % (Manual) Band Neutrophils % Lymphocytes % Lymphocytes % (Manual) Monocytes % (Manual) Basophils % (Manual) Myelocytes % (Man) Promyelocytes % (Man) Blast Cells % (Manual) Nucleated RBC % Metamyelocytes Differential Comment Platelet Estimate Platelet Comment Polychromasia Basophilic Stippling Anisocytosis Microcytosis Macrocytosis D-Dimer VBG pH POC VBG pCO2 POC VBG pO2 VBG HCO3 VBG O2 Sat (Danis) VBG Base Excess Sodium Potassium Chloride Carbon Dioxide Anion Gap BUN Creatinine Est GFR (CKD-EPI)AfAm Est GFR (CKD-EPI)NonAf Random Glucose Calcium Total Bilirubin AST ALT Alkaline Phosphatase Troponin I < 0.02 B-Natriuretic Peptide Total Protein Albumin Urine Color Yellow Urine Appearance Cloudy Urine pH 7.0 D Ur Specific [place]un 1.031 Urine Protein 2+ H Urine Glucose (UA) Negative Urine Ketones Negative Urine Blood 1+ H Urine Nitrite Negative Urine Bilirubin Negative Urine Urobilinogen 1.0 Ur Leukocyte Esterase Negative Urine WBC (Auto) 17 Urine Casts (Auto) 3 U Epithel Cells (Auto) >36 Urine Bacteria (Auto) 38 Stool Occult Blood Blood Type O POSITIVE Antibody Screen Crossmatch 06/14/20 01:20 WBC RBC Hgb Hct MCV MCH MCHC RDW Plt Count MPV Absolute Neuts (auto) Total Counted Neutrophils % Neutrophils % (Manual) Band Neutrophils % Lymphocytes % Lymphocytes % (Manual) Monocytes % (Manual) Basophils % (Manual) Myelocytes % (Man) Promyelocytes % (Man) Blast Cells % (Manual) Nucleated RBC % Metamyelocytes Differential Comment Platelet Estimate Platelet Comment Polychromasia Basophilic Stippling Anisocytosis Microcytosis Macrocytosis D-Dimer VBG pH POC VBG pCO2 POC VBG pO2 VBG HCO3 VBG O2 Sat (Danis) VBG Base Excess Sodium Potassium Chloride Carbon Dioxide Anion Gap BUN Creatinine Est GFR (CKD-EPI)AfAm Est GFR (CKD-EPI)NonAf Random Glucose Calcium Total Bilirubin AST ALT Alkaline Phosphatase Troponin I B-Natriuretic Peptide Total Protein Albumin Urine Color Urine Appearance Urine pH Ur Specific Doerun Urine Protein Urine Glucose (UA) Urine Ketones Urine Blood Urine Nitrite Urine Bilirubin Urine Urobilinogen Ur Leukocyte Esterase Urine WBC (Auto) Urine Casts (Auto) U Epithel Cells (Auto) Urine Bacteria (Auto) Stool Occult Blood Negative Blood Type Antibody Screen Crossmatch Intake & Output 06/11/20 06/12/20 06/13/20 06/14/20 23:59 23:59 23:59 23:59 Weight 82.554 kg Imaging - Results Chest X-ray: Image Reviewed Cat Scan: Report Reviewed, Image Reviewed EKG: Image Reviewed Problem List - Problems (1) Symptomatic anemia Assessment/Plan: Continue cardiac monitoring Appreciate Hematology consult PRBCs given in ED Monitor CBC Stool Occult- neg Code(s): D64.9 - ANEMIA, UNSPECIFIED (2) Palpitations Assessment/Plan: Likely due to Anemia Appreciate Cardiology consult EKG reviewed Chest Xray- bilateral pleural effusions Serial Enzymes neg x2 Code(s): R00.2 - PALPITATIONS (3) CML (chronic myelocytic leukemia) Assessment/Plan: Appreciate Oncology consult Will continue to monitor and treat with interventions accordingly Code(s): C92.10 - CHRONIC MYELOID LEUK, BCR/ABL-POSITIVE, NOT ACHIEVE REMIS (4) AML (acute myeloblastic leukemia) Assessment/Plan: Appreciate Oncology consult Patient reports chemotherapy scheduled for 06/14 WBC 189 Monitor CBC Code(s): C92.00 - ACUTE MYELOBLASTIC LEUKEMIA, NOT HAVING ACHIEVED REMISSION (5) CHF (congestive heart failure) Assessment/Plan: BNP 5172 Chest Xray- bilateral pleural effusions Appreciate Cardiology consult Continue Lasix Strict INOs Daily weight Monitor CBC, CMP O2 Code(s): I50.9 - HEART FAILURE, UNSPECIFIED (6) HTN (hypertension) Assessment/Plan: stable Monitor BP Continue home meds Monitor renal function Code(s): I10 - ESSENTIAL (PRIMARY) HYPERTENSION (7) HLD (hyperlipidemia) Assessment/Plan: stable Continue Lipitor Monitor LFTs Code(s): E78.5 - HYPERLIPIDEMIA, UNSPECIFIED (8) Encounter for screening laboratory testing for COVID-19 virus Assessment/Plan: Low Risk COVID PCR-pending Isolation Precautions Code(s): Z11.59 - ENCOUNTER FOR SCREENING FOR OTHER VIRAL DISEASES Assessment/Plan This is a 70 y/o male with a PMHx of HTN, HLD, CML with recent development of AML. Admitted to Telemetry for Symptomatic Anemia, Palpitations, CHF for further evaluation of their emergent condition. Plan: See Problem List FEN Fluid Restriction 1L Replete lytes prn Low Na Diet DVT ppx OOB SCDs Hold AC secondary to Anemia Dispo: Requires Inpatient Care Visit type - Medication Review Med list reviewed for High Risk Meds patients 65 and older: Yes - Emergency Visit Emergency Visit: Yes ED Registration Date: 06/13/20 Care time: The patient presented to the Emergency Department on the above date and was hospitalized for further evaluation of their emergent condition. - New Patient This patient is new to me today: Yes Date on this admission: 06/14/20 - Critical Care Critical Care patient: No
[2020-06-14] MEDS ORDERED: ZOLPIDEM TARTRATE 5 MG TABLET PO ONE ×2 (00:30→21:25)
[2020-06-14] MEDS ORDERED: ZOLPIDEM TARTRATE 5 MG TABLET ONE (00:40)
[2020-06-14 02:18] LABS: EPI CELLS >36 /uL (0-25.1); HYALINE CASTS 3 /uL (0-3.1); URINE APPEARANCE CLOUDY; URINE BACTERIA 38 /uL (0-1359); URINE BILIRUBIN NEGATIVE (NEGATIVE); URINE COLOR YELLOW; URINE GLUCOSE (UA) NEGATIVE (NEGATIVE); URINE KETONE NEGATIVE (NEGATIVE); URINE LEUK ESTERASE NEGATIVE (NEGATIVE); URINE NITRITE NEGATIVE (NEGATIVE); URINE PROTEIN 2+ (NEGATIVE); URINE WBC 17 /uL (0-25.8)
[2020-06-14] MEDS ORDERED: FUROSEMIDE 40 MG/4 ML INJECTABLE VIAL IVPUSH ONE (03:01)
[2020-06-14] MEDS ORDERED: FUROSEMIDE 40 MG/4 ML INJECTABLE VIAL ONE (03:56)
--- NOTE | 2020-06-14 05:28 | PDOC ---
History of Present Illness - General Chief Complaint: Shortness of Breath Stated Complaint: SHORTNESS OF BREATH Time Seen by Provider: 06/13/20 17:44 - History of Present Illness Initial Comments: 70M w/hx HTN, HLD, CML with recent development of AML p/w 4 days of worsening shortness of breath. He reports worsening orthopnea alongside bilateral lower extremity swelling for the last 4 days. He reports that he "always has a fast heart rate". He is scheduled for inpatient chemotherapy with Dr. Petersen starting tomorrow morning. He reports being unable to sleep for the last several weeks, worsened recently due to the shortness of breath. He denies any chest pain, fevers, chills, confusion, nausea, or vomiting. Constitutional: No Weight Change, No Fever, No Chills, No Night Sweats ENT/Mouth: No Hearing Changes, No Ear Pain, No Nasal Congestion, No Sinus Pain, No Hoarseness, No sore throat, No Rhinorrhea, No Swallowing Difficulty Eyes: No Eye Pain, No Swelling, No Redness, No Foreign Body, No Discharge, No Vision Changes Cardiovascular: No Chest Pain, No PND, No Dyspnea on Exertion, No Orthopnea, No Claudication, No Edema, No Palpitations Respiratory: No Cough, No Sputum, No Wheezing, No Smoke Exposure, No Dyspnea Gastrointestinal: No Nausea, No Vomiting, No Diarrhea, No Constipation, No Pain, No Heartburn, No Anorexia, No Dysphagia, No Hematochezia, No Melena, No Flatulence, No Jaundice Genitourinary: No Dysmenorrhea, No DUB, No Dyspareunia, No Dysuria, No Urinary Frequency, No Hematuria, No Urinary Incontinence, No Urgency, No Flank Pain, No Urinary Flow Changes, No Hesitancy Musculoskeletal: No Arthralgias, No Myalgias, No Joint Swelling, No Joint Stiffness, No Back Pain, No Neck Pain, No Injury History Skin: No Skin Lesions, No Pruritis, No Hair Changes, No Breast/Skin Changes, No Nipple Discharge Neuro: No Weakness, No Numbness, No Paresthesias, No Loss of Consciousness, No Syncope, No Dizziness, No Headache, No Coordination Changes, No Recent Falls Psych: No Anxiety/Panic, No Depression, No Insomnia, No Personality Changes, No Delusions, No Rumination, No SI/HI/AH/VH, No Social Issues, No Memory Changes, No Violence/Abuse Hx., No Eating Concerns Heme/Lymph: No Bruising, No Bleeding, No Transfusions History, No Lymphadenopathy Endocrine: No Polyuria, No Polydipsia, No Temperature Intolerance Past History - Medical History Allergies/Adverse Reactions: Allergies Allergy/AdvReac Type Severity Reaction Status Date / Time Penicillins Allergy Severe Rash Verified 12/20/19 08:26 Home Medications: Ambulatory Orders Omeprazole [Prilosec] 40 mg PO DAILY 01/26/12 Budesonide 8.6 gm NS PRN 05/16/19 Allopurinol [Zyloprim -] 100 mg PO DAILY 05/25/20 Colchicine 0.6 mg PO BID 05/25/20 Famotidine [Acid Bean Snapper] 10 mg PO ASDIR 05/25/20 Propylene Glycol/Peg 400/Pf [Systane 0.3-0.4% Eye Drops] 1 each OP DAILY 05/25/20 Atorvastatin Ca [Lipitor] 20 mg PO DAILY 05/26/20 Lisinopril 10 mg PO DAILY 05/26/20 Metoprolol Tartrate 50 mg PO DAILY 05/26/20 Anemia: No Asthma: No Cancer: No Cardiac Disorders: No CVA: No COPD: No CHF: No Dementia: No Diabetes: No GI Disorders: Yes (ACID REFLUX) Disorders: No HTN: Yes Hypercholesterolemia: Yes Liver Disease: No Seizures: No Thyroid Disease: No - Surgical History Abdominal Surgery: No (HERNIA SX.) Appendectomy: No Cardiac Surgery: No Cholecystectomy: No Lung Surgery: No Neurologic Surgery: No Orthopedic Surgery: Yes (MAKOPLASTY B/L KNEES) - Psycho-Social/Smoking History Smoking History: Former smoker (1PPD x 15 yrs) Have you smoked in the past 12 months: No Number of Cigarettes Smoked Daily: 10 If you are a former smoker, when did you quit?: 6 MONTHS AGO Information on smoking cessation initiated: No 'Breaking Loose' booklet given: 07/09/12 - Substance Abuse Hx (Audit-C & DAST Scrn) How often the patient has a drink containing alcohol: Never Score: In Men: 4 or > Positive; In Women: 3 or > Positive: 0 Screen Result (Pos requires Nsg. Audit-10AR): Negative In the last yr the pt used illegal drug/Rx for NonMed reason: No Score: Yes response is considered Positive: 0 Screen Result (Positive result requires Nsg. DAST-10): Negative *Physical Exam - Vital Signs Last Vital Signs Temp Pulse Resp BP Pulse Ox 98.5 F 116 H 19 135/83 98 06/14/20 02:11 06/14/20 02:11 06/14/20 02:11 06/14/20 02:11 06/14/20 02:11 - Physical Exam General Appearance: Yes: Moderate Distress, Thin HEENT: positive: EOMI, PAMELA, Normal ENT Inspection, Normal Voice Neck: positive: Tender, Normal Thyroid Respiratory/Chest: positive: Lungs Clear, Normal Breath Sounds Cardiovascular: positive: Regular Rhythm, Regular Rate, S1, S2 Gastrointestinal/Abdominal: positive: Normal Bowel Sounds, Flat, Soft Musculoskeletal: positive: Normal Inspection, CVA Tenderness Extremity: positive: Normal Capillary Refill, Normal Inspection, Normal Range of Motion Integumentary: positive: Normal Color, Dry, Warm Neurologic: positive: r d intern II-XII NML intact, Fully Oriented, Normal Mood/Affect, Normal Response, Motor Strength /5 ED Treatment Course - LABORATORY CBC & Chemistry Diagram: 06/13/20 18:20 06/13/20 18:20 - ADDITIONAL ORDERS Additional order review: Laboratory Results 06/14/20 06/13/20 06/13/20 00:01 21:00 18:20 D-Dimer VBG pH POC VBG pCO2 POC VBG pO2 VBG HCO3 VBG O2 Sat (Danis) VBG Base Excess Sodium Potassium Chloride Carbon Dioxide Anion Gap BUN Creatinine Est GFR (CKD-EPI)AfAm Est GFR (CKD-EPI)NonAf Random Glucose Calcium Total Bilirubin AST ALT Alkaline Phosphatase Troponin I B-Natriuretic Peptide 5172.7 H Total Protein Albumin Blood Type O POSITIVE O POSITIVE Antibody Screen Negative Crossmatch See Detail 06/13/20 06/13/20 06/13/20 18:20 17:57 17:57 D-Dimer 35029 H VBG pH 7.363 POC VBG pCO2 37.7 L POC VBG pO2 27.7 L VBG HCO3 21.0 L VBG O2 Sat (Danis) 50.0 L VBG Base Excess -4.0 L Sodium 134 L Potassium 3.7 Chloride 101 Carbon Dioxide 25 Anion Gap 9 BUN 16.4 Creatinine 1.4 H Est GFR (CKD-EPI)AfAm 58.17 Est GFR (CKD-EPI)NonAf 50.19 Random Glucose 92 Calcium 8.3 L Total Bilirubin 0.6 AST 46 H ALT 11 L Alkaline Phosphatase 293 H Troponin I < 0.02 B-Natriuretic Peptide Total Protein 7.1 Albumin 2.5 L Blood Type Antibody Screen Crossmatch 06/13/20 18:20 RBC 2.54 L MCV 82.8 MCHC 29.3 L RDW 18.8 H MPV 10.0 Neutrophils % No Result Required. Lymphocytes % No Result Required. - Medications Given in the ED: ED Medications Discontinued Medications Generic Name Dose Route Start Last Admin Trade Name Jake PRN Reason Stop Dose Admin Furosemide 40 mg 06/14/20 03:01 06/14/20 04:02 Lasix Injection - IVPUSH 06/14/20 03:02 40 mg ONCE ONE Administration Zolpidem Tartrate 5 mg 06/14/20 00:30 06/14/20 00:52 Ambien - PO 06/14/20 00:31 5 mg ONCE ONE Administration Medical Decision Making - Medical Decision Making 70M w/hx HTN, HLD, CML with recent development of AML p/w 4 days of worsening shortness of breath. He reports worsening orthopnea alongside bilateral lower extremity swelling for the last 4 days. He reports that he "always has a fast heart rate". He is scheduled for inpatient chemotherapy with Dr. Petersen starting tomorrow morning. He reports being unable to sleep for the last several weeks, worsened recently due to the shortness of breath. He denies any chest pain, fevers, chills, confusion, nausea, or vomiting. On arrival patient was tachycardic to 120s and RR 25. Physical exam reveals thin elderly individual with increased respiratory effort, otherwise unremarkable. ddx includes but is not limited to: PE, CHF, pneumonia, COVID-19 infection plan: EKG, labs, CTA, UA, UC, cardiac profile, D Dimer, BNP reassess: patients had 100,000 + WBCs with 30% blasts - hematology recs watching patient for symptoms of leukostasis may need to leukopheres, patient had hemoglobin low 6s- will transfuse 2 units PRBCs, CXR revealed bilateral pleural effussions, will diurese with lasix. CTA unrevealing of PE, UA/UC unremarkable. Will admit patient to tele for further management. dispo: admit patient to tele. 06/14/20 05:37 Discharge - Discharge Information Problems reviewed: Yes Clinical Impression/Diagnosis: Shortness of breath - Follow up/Referral - Patient Discharge Instructions - Post Discharge Activity
[2020-06-14 08:14] LABS: HEMATOCRIT 25.6 % (35.4-49); HEMOGLOBIN 7.8 GM/dL (11.7-16.9); MCHC 30.5 g/dl (32.0-35.9); MEAN CELL VOLUME 82.1 fl (80-96); MEAN PLT VOLUME 9.3 fl (7.5-11.1); PLATELET COUNT 78 K/MM3 (134-434); RBC 3.12 M/mm3 (4.00-5.60); RDW 18.9 % (11.9-15.9)
[2020-06-14 08:26] LABS: WHITE BLOOD COUNT 198.2 K/mm3 (4.0-10.0)
[2020-06-14 08:36] LABS: ALBUMIN 2.5 g/dl (3.4-5.0); BLOOD UREA NITROGEN 19.9 mg/dL (7-18); CALCIUM 8.6 mg/dL (8.5-10.1); CREATININE 1.5 mg/dL (0.55-1.3); POTASSIUM 3.8 mmol/L (3.5-5.1); TOT PROT 7.1 g/dl (6.4-8.2)
--- NOTE | 2020-06-14 09:16 | EKG ---
Test Reason : Blood Pressure : / mmHG Vent. Rate : 122 BPM Atrial Rate : 122 BPM P-R Int : 134 ms QRS Dur : 136 ms QT Int : 372 ms P-R-T Axes : -08 -36 008 degrees QTc Int : 530 ms SINUS TACHYCARDIA LEFT AXIS DEVIATION RIGHT BUNDLE BRANCH BLOCK ABNORMAL ECG WHEN COMPARED WITH ECG OF 20-DEC-2019 11:32, NO SIGNIFICANT CHANGE WAS FOUND Confirmed by MARTHA ROJO MD ([id number]) on 06/14/2020 9:16:19 AM Referred By: Confirmed By:MARTHA ROJO MD
--- NOTE | 2020-06-14 09:44 | PN ---
Progress Note, Physician - Objective Vital Signs: Vital Signs Temperature 98.9 F 06/14/20 06:17 Pulse Rate 107 H 06/14/20 06:17 Respiratory Rate 27 H 06/14/20 06:17 Blood Pressure 112/79 06/14/20 06:17 O2 Sat by Pulse Oximetry (%) 98 06/14/20 06:17 Labs: CBC, BMP 06/14/20 07:35 06/14/20 07:35 Problem List - Problems (1) Symptomatic anemia Assessment/Plan: Appreciate Hematology consult PRBCs given in ED Monitor CBC Stool Occult- neg Code(s): D64.9 - ANEMIA, UNSPECIFIED (2) AML (acute myeloblastic leukemia) Assessment/Plan: Appreciate Oncology consult Patient reports chemotherapy scheduled for 06/14 WBC 189 Monitor CBC Code(s): C92.00 - ACUTE MYELOBLASTIC LEUKEMIA, NOT HAVING ACHIEVED REMISSION (3) CHF (congestive heart failure) Assessment/Plan: EKG reviewed Chest Xray- bilateral pleural effusions Serial Enzymes neg x2 BNP 5172 Chest Xray- bilateral pleural effusions Appreciate Cardiology consult Continue Lasix Strict INOs Daily weight Monitor CBC, CMP O2 Code(s): I50.9 - HEART FAILURE, UNSPECIFIED (4) HTN (hypertension) Assessment/Plan: monitor on current meds Code(s): I10 - ESSENTIAL (PRIMARY) HYPERTENSION
[2020-06-14] MEDS ORDERED: SODIUM CHLORIDE 1,000 ML IV SCH ×3 (10:00→17:35)
[2020-06-14 10:47] LABS: URIC ACID 9.7 mg/dL (2.6-7.2)
[2020-06-14 11:19] LABS: PLATELET ESTIMATE DECREASED
[2020-06-14] MEDS ORDERED: ALLOPURINOL 100 MG TABLET (FP) PO SCH (11:45)
--- NOTE | 2020-06-14 11:47 | CON.CARD ---
Consult Consult Specialty:: Cardiology Referred by:: Bryanna Reason for Consultation:: SOB, sinus tachycardia - History of Present Illness Chief Complaint: sob History of Present Illness: 70M w/hx HTN, HLD, CML with recent development of AML p/w 4 days of worsening shortness of breath. He reports worsening orthopnea alongside bilateral lower extremity swelling for the last 4 days. He reports that he "always has a fast heart rate". He denies palpitations, dizziness or syncope. Exercise tolerance is very poor. He was awaiting chemo. ECG stach lad rbbb. TnI negative. CTA 06/14/20 no PE, bilat effusions R>L - History Source History Provided By: Patient, Medical Record - Past Medical History Cardio/Vascular: Yes: HTN, Hyperlipdemia Gastrointestinal: Yes: GERD, Other (Ischemic Colitis) - Past Surgical History Past Surgical History: Yes: Arthrosocopy (Left Shoulder) - Alcohol/Substance Use Hx Alcohol Use: No History of Substance Use: reports: None - Smoking History Smoking history: Former smoker (1PPD x 15 yrs) Have you smoked in the past 12 months: No Aproximately how many cigarettes per day: 10 If you are a former smoker, when did you quit?: 6 MONTHS AGO - Social History ADL: Independent History of Recent Travel: No Home Medications - Allergies Allergies/Adverse Reactions: Allergies Allergy/AdvReac Type Severity Reaction Status Date / Time Penicillins Allergy Severe Rash Verified 12/20/19 08:26 - Home Medications Home Medications: Ambulatory Orders Omeprazole [Prilosec] 40 mg PO DAILY 01/26/12 Budesonide 8.6 gm NS PRN 05/16/19 Allopurinol [Zyloprim -] 100 mg PO DAILY 05/25/20 Colchicine 0.6 mg PO BID 05/25/20 Famotidine [Acid Drier Helper] 10 mg PO ASDIR 05/25/20 Propylene Glycol/Peg 400/Pf [Systane 0.3-0.4% Eye Drops] 1 each OP DAILY 05/25/20 Atorvastatin Ca [Lipitor] 20 mg PO DAILY 05/26/20 Lisinopril 10 mg PO DAILY 05/26/20 Metoprolol Tartrate 50 mg PO DAILY 05/26/20 Family Medical History Family Hx Cancer: Sister (Hodgkin's Lymphoma- age 24) Vital Signs: Vital Signs Temperature 98.9 F 06/14/20 06:17 Pulse Rate 107 H 06/14/20 06:17 Respiratory Rate 27 H 06/14/20 06:17 Blood Pressure 112/79 06/14/20 06:17 O2 Sat by Pulse Oximetry (%) 98 06/14/20 06:17 Constitutional: Yes: Mild Distress Eyes: Yes: EOM Intact HENT: Yes: Atraumatic, Normocephalic Neck: Yes: Supple, Trachea Midline Respiratory: Yes: CTA Bilaterally Gastrointestinal: Yes: Normal Bowel Sounds, Soft Cardiovascular: Yes: Tachycardia JVD: No Carotid Bruit: No PMI: Non-Displaced Heart Sounds: Yes: S1, S2 Edema: No Peripheral Pulses WNL: Yes - Other Data Labs, Other Data: CBC, BMP 06/14/20 07:35 06/14/20 07:35 Troponin, BNP 06/13/20 06/13/20 06/14/20 18:20 18:20 01:10 Troponin I < 0.02 < 0.02 B-Natriuretic Peptide 5172.7 H 06/14/20 07:35 Troponin I < 0.02 B-Natriuretic Peptide Troponin, BNP 06/13/20 06/13/20 06/14/20 18:20 18:20 01:10 Troponin I < 0.02 < 0.02 B-Natriuretic Peptide 5172.7 H 06/14/20 07:35 Troponin I < 0.02 B-Natriuretic Peptide Imaging - Results Chest X-ray: Report Reviewed (cm angela) EKG: Report Reviewed (stach lad rbbb) Assessment/Plan 70M w/hx HTN, HLD, CML with recent development of AML p/w 4 days of worsening shortness of breath. He reports worsening orthopnea alongside bilateral lower extremity swelling for the last 4 days. He reports that he "always has a fast heart rate". He denies palpitations, dizziness or syncope. Exercise tolerance is very poor. He was awaiting chemo. ECG stach lad rbbb. TnI negative. CTA 06/14/20 no PE, bilat effusions R>L IMP: -sinus tachycardia due to AML, severe anemia. -no evidence of ACS -no evidence of PE -echo pending. -will follow with you. No need for telemetry monitoring.
[2020-06-14] MEDS ORDERED: ONDANSETRON INJECTION 8 MG in SODIUM CHLORIDE 50 ML IVPB ONE (12:00)
[2020-06-14] MEDS ORDERED: DECITABINE IV ONE (12:30)
[2020-06-14] MEDS ORDERED: SODIUM CHLORIDE IV ONE (12:30)
[2020-06-14] MEDS ORDERED: PT OWN MED DRAWER 7, Y5N ONE (12:57)
[2020-06-14] MEDS: ALLOPURINOL 300 MG TABLET (FP) PO SCH (12:58)
--- NOTE | 2020-06-14 12:59 | CONSULT ---
Consultation: Heme-Onc Resident note REQUESTING PROVIDER: Dr. Gould CONSULT REQUEST: We have been asked to medically evaluate this patient for CMML. 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 Patient reports he has been having insomnia for the past few weeks. He also reports intermittent palpitations. He is also scheduled to start chemotherapy with Dr. Petersen today for CMML. Patient denies fevers, chills, night sweats, headache, dizziness, chest pain, abdominal pain, diarrhea, urinary symptoms. Denies sick contacts or recent travel. At the ED, patient was found to have WBC of 189 and Hgb 6.3. He subsequently received 2u prbc. PMHx: HTN, HLD, CKD, CMML PSHx: L shoulder arthroscopy Allergies: NKDA SHx: previous smoker, denies etoh drinking, denies illicit drug use REVIEW OF SYSTEMS: CONSTITUTIONAL: Absent: fever, chills, diaphoresis, generalized weakness, malaise, loss of appetite, weight change HEENT: Absent: rhinorrhea, nasal congestion, throat pain, throat swelling, difficulty swallowing, mouth swelling, ear pain, eye pain, visual changes CARDIOVASCULAR: Absent: chest pain, syncope, palpitations, irregular heart rate, lightheadedness, peripheral edema RESPIRATORY: shortness of breath, dyspnea with exertion Absent: cough,orthopnea, wheezing, stridor, hemoptysis GASTROINTESTINAL: Absent: abdominal pain, abdominal distension, nausea, vomiting, diarrhea, constipation, melena, hematochezia GENITOURINARY: Absent: dysuria, frequency, urgency, hesitancy, hematuria, flank pain, genital pain MUSCULOSKELETAL: Absent: myalgia, arthralgia, joint swelling, back pain, neck pain SKIN: Absent: rash, itching, pallor HEMATOLOGIC/IMMUNOLOGIC: Absent: easy bleeding, easy bruising, lymphadenopathy, frequent infections ENDOCRINE: Absent: unexplained weight gain, unexplained weight loss, heat intolerance, cold intolerance NEUROLOGIC: Absent: headache, focal weakness or paresthesias, dizziness, unsteady gait, seizure, mental status changes, bladder or bowel incontinence PSYCHIATRIC: Absent: anxiety, depression, suicidal or homicidal ideation, hallucinations. PHYSICAL EXAMINATION Vital Signs - 24 hr 08/16/20 08/16/20 08/16/20 17:32 18:17 21:07 Temperature 98.8 F Pulse Rate 123 H Pulse Rate [ 117 H Apical] Respiratory 25 H 28 H Rate Blood Pressure 130/61 Blood Pressure 126/58 L [Left Arm] O2 Sat by Pulse 97 97 100 Oximetry (%) 06/14/20 06/14/20 06/14/20 02:11 06:07 06:17 Temperature 98.5 F 98.1 F 98.9 F Pulse Rate Pulse Rate [ 116 H 107 H 107 H Apical] Respiratory 19 19 27 H Rate Blood Pressure Blood Pressure 135/83 136/73 112/79 [Left Arm] O2 Sat by Pulse 98 95 98 Oximetry (%) 06/14/20 06/14/20 10:00 12:28 Temperature 98 F Pulse Rate 80 114 H Pulse Rate [ Apical] Respiratory 24 H 26 H Rate Blood Pressure 128/78 134/74 Blood Pressure [Left Arm] O2 Sat by Pulse 99 Oximetry (%) GENERAL: Awake, alert, and fully oriented, on 3L NC HEAD: Normal with no signs of trauma. EYES: PERRLA, EOMI, sclera anicteric, conjunctiva clear. EARS, NOSE, THROAT: Dry mucous membranes. NECK: Normal range of motion, supple LUNGS: Decreased breath sounds on bilateral bases HEART: Tachycardic, normal S1 and S2 ABDOMEN: Soft, protruberant, distended, NABS, +splenomegaly MUSCULOSKELETAL: Normal range of motion at all joints. LOWER EXTREMITIES: 2+ pulses, warm, well-perfused. No calf tenderness. No peripheral edema. NEUROLOGICAL: Cranial nerves II-XII intact. Normal speech. PSYCHIATRIC: Cooperative. Good eye contact. SKIN: Warm, dry, normal turgor Laboratory Results - last 24 hr 06/13/20 06/13/20 06/13/20 17:57 17:57 18:20 WBC 189.4 H* RBC 2.54 L Hgb 6.2 L* Hct 21.0 L D MCV 82.8 MCH 24.2 L MCHC 29.3 L RDW 18.8 H Plt Count 83 L D MPV 10.0 Absolute Neuts (auto) No Result Required. Total Counted 100 Neutrophils % No Result Required. Neutrophils % (Manual) 37.0 L Band Neutrophils % 2.0 Lymphocytes % No Result Required. Lymphocytes % (Manual) 5.0 L Monocytes % (Manual) 14 H Eosinophils % (Manual) Basophils % (Manual) 1.0 Myelocytes % (Man) 5 H D Promyelocytes % (Man) 4 H Blast Cells % (Manual) 30 H Nucleated RBC % 3 H Metamyelocytes 2 Differential Comment Man diff performed Hypochromia Platelet Estimate Slt decrease Platelet Comment Slide scanned. Polychromasia 1+ Basophilic Stippling 1+ Anisocytosis 1+ Microcytosis 1+ Macrocytosis 1+ Stomatocytes D-Dimer 59719 H VBG pH 7.363 POC VBG pCO2 37.7 L POC VBG pO2 27.7 L VBG HCO3 21.0 L VBG O2 Sat (Danis) 50.0 L VBG Base Excess -4.0 L Sodium Potassium Chloride Carbon Dioxide Anion Gap BUN Creatinine Est GFR (CKD-EPI)AfAm Est GFR (CKD-EPI)NonAf Random Glucose Uric Acid Calcium Total Bilirubin AST ALT Alkaline Phosphatase LD Total Troponin I B-Natriuretic Peptide Total Protein Albumin Urine Color Urine Appearance Urine pH Ur Specific [place] Urine Protein Urine Glucose (UA) Urine Ketones Urine Blood Urine Nitrite Urine Bilirubin Urine Urobilinogen Ur Leukocyte Esterase Urine WBC (Auto) Urine Casts (Auto) U Epithel Cells (Auto) Urine Bacteria (Auto) Stool Occult Blood Blood Type Antibody Screen Crossmatch 06/13/20 06/13/20 06/13/20 18:20 18:20 21:00 WBC RBC Hgb Hct MCV MCH MCHC RDW Plt Count MPV Absolute Neuts (auto) Total Counted Neutrophils % Neutrophils % (Manual) Band Neutrophils % Lymphocytes % Lymphocytes % (Manual) Monocytes % (Manual) Eosinophils % (Manual) Basophils % (Manual) Myelocytes % (Man) Promyelocytes % (Man) Blast Cells % (Manual) Nucleated RBC % Metamyelocytes Differential Comment Hypochromia Platelet Estimate Platelet Comment Polychromasia Basophilic Stippling Anisocytosis Microcytosis Macrocytosis Stomatocytes D-Dimer VBG pH POC VBG pCO2 POC VBG pO2 VBG HCO3 VBG O2 Sat (Danis) VBG Base Excess Sodium 134 L Potassium 3.7 Chloride 101 Carbon Dioxide 25 Anion Gap 9 BUN 16.4 Creatinine 1.4 H Est GFR (CKD-EPI)AfAm 58.17 Est GFR (CKD-EPI)NonAf 50.19 Random Glucose 92 Uric Acid Calcium 8.3 L Total Bilirubin 0.6 AST 46 H ALT 11 L Alkaline Phosphatase 293 H LD Total Troponin I < 0.02 B-Natriuretic Peptide 5172.7 H Total Protein 7.1 Albumin 2.5 L Urine Color Urine Appearance Urine pH Ur Specific [place] Urine Protein Urine Glucose (UA) Urine Ketones Urine Blood Urine Nitrite Urine Bilirubin Urine Urobilinogen Ur Leukocyte Esterase Urine WBC (Auto) Urine Casts (Auto) U Epithel Cells (Auto) Urine Bacteria (Auto) Stool Occult Blood Blood Type O POSITIVE Antibody Screen Negative Crossmatch See Detail 06/14/20 06/14/20 06/14/20 00:01 01:10 01:10 WBC RBC Hgb Hct MCV MCH MCHC RDW Plt Count MPV Absolute Neuts (auto) Total Counted Neutrophils % Neutrophils % (Manual) Band Neutrophils % Lymphocytes % Lymphocytes % (Manual) Monocytes % (Manual) Eosinophils % (Manual) Basophils % (Manual) Myelocytes % (Man) Promyelocytes % (Man) Blast Cells % (Manual) Nucleated RBC % Metamyelocytes Differential Comment Hypochromia Platelet Estimate Platelet Comment Polychromasia Basophilic Stippling Anisocytosis Microcytosis Macrocytosis Stomatocytes D-Dimer VBG pH POC VBG pCO2 POC VBG pO2 VBG HCO3 VBG O2 Sat (Danis) VBG Base Excess Sodium Potassium Chloride Carbon Dioxide Anion Gap BUN Creatinine Est GFR (CKD-EPI)AfAm Est GFR (CKD-EPI)NonAf Random Glucose Uric Acid Calcium Total Bilirubin AST ALT Alkaline Phosphatase LD Total Troponin I < 0.02 B-Natriuretic Peptide Total Protein Albumin Urine Color Yellow Urine Appearance Cloudy Urine pH 7.0 D Ur Specific [place] 1.031 Urine Protein 2+ H Urine Glucose (UA) Negative Urine Ketones Negative Urine Blood 1+ H Urine Nitrite Negative Urine Bilirubin Negative Urine Urobilinogen 1.0 Ur Leukocyte Esterase Negative Urine WBC (Auto) 17 Urine Casts (Auto) 3 U Epithel Cells (Auto) >36 Urine Bacteria (Auto) 38 Stool Occult Blood Blood Type O POSITIVE Antibody Screen Crossmatch 06/14/20 06/14/20 06/14/20 01:20 07:35 07:35 WBC 198.2 H* RBC 3.12 L Hgb 7.8 L Hct 25.6 L D MCV 82.1 MCH 25.0 L MCHC 30.5 L RDW 18.9 H Plt Count 78 L MPV 9.3 Absolute Neuts (auto) Total Counted Neutrophils % No Result Required. Neutrophils % (Manual) 40.0 L Band Neutrophils % 0.0 Lymphocytes % No Result Required. Lymphocytes % (Manual) 8.0 D Monocytes % (Manual) 10 Eosinophils % (Manual) 0.0 Basophils % (Manual) 1.0 Myelocytes % (Man) 6 H Promyelocytes % (Man) 1 D Blast Cells % (Manual) 31 H Nucleated RBC % 0 Metamyelocytes 3 H D Differential Comment Hypochromia 1+ Platelet Estimate Decreased Platelet Comment No clumping noted Polychromasia 1+ Basophilic Stippling Anisocytosis Microcytosis Macrocytosis Stomatocytes 1+ D-Dimer VBG pH POC VBG pCO2 POC VBG pO2 VBG HCO3 VBG O2 Sat (Danis) VBG Base Excess Sodium 134 L Potassium 3.8 Chloride 100 Carbon Dioxide 22 Anion Gap 12 BUN 19.9 H Creatinine 1.5 H Est GFR (CKD-EPI)AfAm 53.52 Est GFR (CKD-EPI)NonAf 46.17 Random Glucose 80 Uric Acid 9.7 H Calcium 8.6 Total Bilirubin 1.0 AST 46 H ALT 12 L Alkaline Phosphatase 253 H LD Total 430 H Troponin I B-Natriuretic Peptide Total Protein 7.1 Albumin 2.5 L Urine Color Urine Appearance Urine pH Ur Specific [place] Urine Protein Urine Glucose (UA) Urine Ketones Urine Blood Urine Nitrite Urine Bilirubin Urine Urobilinogen Ur Leukocyte Esterase Urine WBC (Auto) Urine Casts (Auto) U Epithel Cells (Auto) Urine Bacteria (Auto) Stool Occult Blood Negative Blood Type Antibody Screen Crossmatch 06/14/20 07:35 WBC RBC Hgb Hct MCV MCH MCHC RDW Plt Count MPV Absolute Neuts (auto) Total Counted Neutrophils % Neutrophils % (Manual) Band Neutrophils % Lymphocytes % Lymphocytes % (Manual) Monocytes % (Manual) Eosinophils % (Manual) Basophils % (Manual) Myelocytes % (Man) Promyelocytes % (Man) Blast Cells % (Manual) Nucleated RBC % Metamyelocytes Differential Comment Hypochromia Platelet Estimate Platelet Comment Polychromasia Basophilic Stippling Anisocytosis Microcytosis Macrocytosis Stomatocytes D-Dimer VBG pH POC VBG pCO2 POC VBG pO2 VBG HCO3 VBG O2 Sat (Danis) VBG Base Excess Sodium Potassium Chloride Carbon Dioxide Anion Gap BUN Creatinine Est GFR (CKD-EPI)AfAm Est GFR (CKD-EPI)NonAf Random Glucose Uric Acid Calcium Total Bilirubin AST ALT Alkaline Phosphatase LD Total Troponin I < 0.02 B-Natriuretic Peptide Total Protein Albumin Urine Color Urine Appearance Urine pH Ur Specific [place] Urine Protein Urine Glucose (UA) Urine Ketones Urine Blood Urine Nitrite Urine Bilirubin Urine Urobilinogen Ur Leukocyte Esterase Urine WBC (Auto) Urine Casts (Auto) U Epithel Cells (Auto) Urine Bacteria (Auto) Stool Occult Blood Blood Type Antibody Screen Crossmatch Active Medications Generic Name Dose Route Start Last Admin Trade Name Freq PRN Reason Stop Dose Admin Allopurinol 300 mg 06/14/20 11:45 Zyloprim - PO DAILY ERMELINDA ASSESSMENT/PLAN: Patient is a 70 year old male with past medical history of HTN, HLD, CKD, 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 We have been consulted for further evaluation of CMML. #CMML with blast crisis, high risk for tumor lysis -Chest CTA : no evidence of PE, bilateral pleural efuusions, R>L, extensive LAD involving the mediastinal, bilateral hilar, bilateral axillary and upper abdominal LN chains. Splenomegaly. -WBC 198k, ANC 13936 -LDH, uric acid, PT/PTT, fibrinogen -G6PD level -Rasburicase 6mg x1, then will start Hydrea 1000mg bid -plan for low intensity chemo, cytabine tomorrow -monitor CBC, CMP, Mg, LDH, uric acid bid -Will increase home Allopurinol dose to 300mg daily, first dose stat -r/o sepsis - blood cx, urine cx -pulm consulted. recs appreciated. -cardio consulted. recs appreciated. -ID consulted. recs appreciated. -nephro consulted. recs appreciated. Dispo: We will continue to follow the patient. Thank you for this consultative opportunity. Visit type - Medication Review Med list reviewed for High Risk Meds patients 65 and older: Yes - Emergency Visit Emergency Visit: Yes ED Registration Date: 06/14/20 Care time: The patient presented to the Emergency Department on the above date and was hospitalized for further evaluation of their emergent condition. - New Patient This patient is new to me today: Yes Date on this admission: 06/14/20 - Critical Care Critical Care patient: Yes Total Critical Care Time (in minutes): 36 Critical Care Statement: The care of this patient involved high complexity decision making to prevent further life threatening deterioration of the patient's condition and/or to evaluate & treat vital organ system(s) failure or risk of failure. ATTENDING PHYSICIAN STATEMENT I saw and evaluated the patient. I reviewed the resident's note and discussed the case with the resident. I agree with the resident's findings and plan as documented. SUBJECTIVE: OBJECTIVE: ASSESSMENT AND PLAN:
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
--- NOTE | 2020-06-14 14:40 | PN ---
Teaching Attending Note Name of Resident: Dianne Martines ATTENDING PHYSICIAN STATEMENT I saw and evaluated the patient. I reviewed the resident's note and discussed the case with the resident. I agree with the resident's findings and plan as documented. 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 No fever or chills. No travel history or sick contacts. No hemoptysis or night sweats. No known COVID19 exposure. CT Chest : No PE / extensive mediastinal and abdominal lymphadenopathy / pleural effusion which appears partially loculated Intake & Output 06/11/20 06/12/20 06/13/20 06/14/20 23:59 23:59 23:59 23:59 Weight 182 lb Last Vital Signs Temp Pulse Resp BP Pulse Ox 98 F 114 H 26 H 134/74 99 06/14/20 10:00 06/14/20 12:28 06/14/20 12:28 06/14/20 12:28 06/14/20 12:28 Active Medications Allopurinol (Zyloprim -) 300 mg PO DAILY [facility] Last Admin: 06/14/20 12:58 Dose: 300 mg Documented by: Chlorhexidine Gluconate (Hibiclens For Decolonization -) 1 applic TP HS ERMELINDA Mupirocin (Bactroban Ointment (For Decolonization) -) 1 applic NS BID [facility] Stop: 06/19/20 21:59 GENERAL: Awake, alert, and fully oriented, Mildly dyspneic at rest HEAD: Normal with no signs of trauma. EYES: Pupils equal, round and reactive to light, extraocular movements intact LUNGS: Breath sounds equal, decreased at bases, (+) Mild accessory muscle use. HEART: Regular rate and rhythm, normal S1 and S2 ABDOMEN: Softly distended, mild non-specific tenderness, (+) BS, no guarding, no rebound, MUSCULOSKELETAL: No CVA tenderness. UPPER EXTREMITIES: 2+ pulses, warm, multiple ecchymosis of different stages LOWER EXTREMITIES: 2+ pulses, warm, well-perfused. No calf tenderness.2+ pitting edema NEUROLOGICAL: Non-focal Laboratory Last Values WBC 198.2 K/mm3 (4.0-10.0) H* 06/14/20 07:35 RBC 3.12 M/mm3 (4.00-5.60) L 06/14/20 07:35 Hgb 7.8 GM/dL (11.7-16.9) L 06/14/20 07:35 Hct 25.6 % (35.4-49) L D 06/14/20 07:35 MCV 82.1 fl (80-96) 06/14/20 07:35 MCH 25.0 pg (25.7-33.7) L 06/14/20 07:35 MCHC 30.5 g/dl (32.0-35.9) L 06/14/20 07:35 RDW 18.9 % (11.9-15.9) H 06/14/20 07:35 Plt Count 78 K/MM3 (134-434) L 06/14/20 07:35 MPV 9.3 fl (7.5-11.1) 06/14/20 07:35 Absolute Neuts (auto) No Result Required. 06/13/20 18:20 Total Counted 100 06/13/20 18:20 Neutrophils % No Result Required. 06/14/20 07:35 Neutrophils % (Manual) 40.0 % (42.8-82.8) L 06/14/20 07:35 Band Neutrophils % 0.0 % 06/14/20 07:35 Lymphocytes % No Result Required. 06/14/20 07:35 Lymphocytes % (Manual) 8.0 % (8-40) D 06/14/20 07:35 Monocytes % (Manual) 10 % (3.8-10.2) 06/14/20 07:35 Eosinophils % (Manual) 0.0 % (0-4.5) 06/14/20 07:35 Basophils % (Manual) 1.0 % (0-2.0) 06/14/20 07:35 Myelocytes % (Man) 6 % (0-2) H 06/14/20 07:35 Promyelocytes % (Man) 1 % (0-2) D 06/14/20 07:35 Blast Cells % (Manual) 31 % (0-0) H 06/14/20 07:35 Nucleated RBC % 0 % (0-0) 06/14/20 07:35 Metamyelocytes 3 % (0-2) H D 06/14/20 07:35 Differential Comment Man diff performed 06/13/20 18:20 Hypochromia 1+ 06/14/20 07:35 Platelet Estimate Decreased 06/14/20 07:35 Platelet Comment No clumping noted 06/14/20 07:35 Platelet Comment Slide scanned. 06/13/20 18:20 Polychromasia 1+ 06/14/20 07:35 Basophilic Stippling 1+ 06/13/20 18:20 Anisocytosis 1+ 06/13/20 18:20 Microcytosis 1+ 06/13/20 18:20 Macrocytosis 1+ 06/13/20 18:20 Stomatocytes 1+ 06/14/20 07:35 D-Dimer 98442 ng/ml (0-500) H 06/13/20 17:57 VBG pH 7.363 (7.310-7.410) 06/13/20 17:57 POC VBG pCO2 37.7 mmHg (38-52) L 06/13/20 17:57 POC VBG pO2 27.7 mmHg (28-48) L 06/13/20 17:57 VBG HCO3 21.0 mmol/L (23-29) L 06/13/20 17:57 VBG O2 Sat (Danis) 50.0 % (70-80) L 06/13/20 17:57 VBG Base Excess -4.0 mmol/L (-2-2) L 06/13/20 17:57 Sodium 134 mmol/L (136-145) L 06/14/20 07:35 Potassium 3.8 mmol/L (3.5-5.1) 06/14/20 07:35 Chloride 100 mmol/L (98-107) 06/14/20 07:35 Carbon Dioxide 22 mmol/L (21-32) 06/14/20 07:35 Anion Gap 12 MMOL/L (8-16) 06/14/20 07:35 BUN 19.9 mg/dL (7-18) H 06/14/20 07:35 Creatinine 1.5 mg/dL (0.55-1.3) H 06/14/20 07:35 Est GFR (CKD-EPI)AfAm 53.52 06/14/20 07:35 Est GFR (CKD-EPI)NonAf 46.17 06/14/20 07:35 Random Glucose 80 mg/dL (74-106) 06/14/20 07:35 Uric Acid 9.7 mg/dL (2.6-7.2) H 06/14/20 07:35 Calcium 8.6 mg/dL (8.5-10.1) 06/14/20 07:35 Total Bilirubin 1.0 mg/dL (0.2-1) 06/14/20 07:35 AST 46 U/L (15-37) H 06/14/20 07:35 ALT 12 U/L (13-61) L 06/14/20 07:35 Alkaline Phosphatase 253 U/L (45-117) H 06/14/20 07:35 LD Total 430 U/L (87-246) H 06/14/20 07:35 Troponin I < 0.02 ng/ml (0.00-0.05) 06/14/20 07:35 B-Natriuretic Peptide 5172.7 pg/ml (5-125) H 06/13/20 18:20 Total Protein 7.1 g/dl (6.4-8.2) 06/14/20 07:35 Albumin 2.5 g/dl (3.4-5.0) L 06/14/20 07:35 Urine Color Yellow 06/14/20 01:10 Urine Appearance Cloudy 06/14/20 01:10 Urine pH 7.0 (5.0-8.0) D 06/14/20 01:10 Ur Specific Stephen 1.031 (1.010-1.035) 06/14/20 01:10 Urine Protein 2+ (NEGATIVE) H 06/14/20 01:10 Urine Glucose (UA) Negative (NEGATIVE) 06/14/20 01:10 Urine Ketones Negative (NEGATIVE) 06/14/20 01:10 Urine Blood 1+ (NEGATIVE) H 06/14/20 01:10 Urine Nitrite Negative (NEGATIVE) 06/14/20 01:10 Urine Bilirubin Negative (NEGATIVE) 06/14/20 01:10 Urine Urobilinogen 1.0 mg/dL (0.2-1.0) 06/14/20 01:10 Ur Leukocyte Esterase Negative (NEGATIVE) 06/14/20 01:10 Urine WBC (Auto) 17 /uL (0-25.8) 06/14/20 01:10 Urine Casts (Auto) 3 /uL (0-3.1) 06/14/20 01:10 U Epithel Cells (Auto) >36 /uL (0-25.1) 06/14/20 01:10 Urine Bacteria (Auto) 38 /uL (0-1359) 06/14/20 01:10 Stool Occult Blood Negative (NEGATIVE) 06/14/20 01:20 Blood Type O POSITIVE 06/14/20 00:01 Antibody Screen Negative 06/13/20 21:00 Crossmatch See Detail 06/13/20 21:00 Active Medications Generic Name Dose Route Start Last Admin Trade Name Freq PRN Reason Stop Dose Admin Allopurinol 300 mg 06/14/20 11:45 06/14/20 12:58 Zyloprim - PO 300 mg DAILY ERMELINDA Administration ASSESSMENT/PLAN: 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
--- NOTE | 2020-06-14 16:07 | CON.ID ---
Consult Referred by:: dr arevalo Reason for Consultation:: r/o infection - History of Present Illness Chief Complaint: sob History of Present Illness: 70 yo man admitted from home with worseining sob and abdominal girth much of the history is from the cart hi is tired and frustrated from being in the ER and refers me to the chart and prior docs notes for details does state that has has not been on any outpt antibiotics denies fevers or chills no dysuria noted pen allergy was rash to fingers and toes 50 years ago- no sob or angioedema recent diagnosis of CMML with blasts/AML was noted to have wbc of 189K and hgb 6.2 he is s/p transfusion of 2 units prbcs - History Source History Provided By: Patient, Medical Record Limitations to Obtaining History: Clinical Condition - Past Medical History Cardio/Vascular: Yes: HTN, Hyperlipdemia Gastrointestinal: Yes: GERD, Other (Ischemic Colitis) - Past Surgical History Past Surgical History: Yes: Arthrosocopy (Left Shoulder) - Alcohol/Substance Use Hx Alcohol Use: Yes (scotch) History of Substance Use: reports: None - Smoking History Smoking history: Former smoker (1PPD x 15 yrs) Have you smoked in the past 12 months: No Aproximately how many cigarettes per day: 10 If you are a former smoker, when did you quit?: 6 MONTHS AGO - Social History Usual Living Arrangement: Alone ADL: Independent History of Recent Travel: No Home Medications - Allergies Allergies/Adverse Reactions: Allergies Allergy/AdvReac Type Severity Reaction Status Date / Time Penicillins Allergy Severe Rash Verified 12/20/19 08:26 - Home Medications Home Medications: Ambulatory Orders Omeprazole [Prilosec] 40 mg PO DAILY 01/26/12 Budesonide 8.6 gm NS PRN 05/16/19 Allopurinol [Zyloprim -] 100 mg PO DAILY 05/25/20 Colchicine 0.6 mg PO BID 05/25/20 Famotidine [Acid Book Cutter] 10 mg PO ASDIR 05/25/20 Propylene Glycol/Peg 400/Pf [Systane 0.3-0.4% Eye Drops] 1 each OP DAILY 05/25/20 Atorvastatin Ca [Lipitor] 20 mg PO DAILY 05/26/20 Lisinopril 10 mg PO DAILY 05/26/20 Metoprolol Tartrate 50 mg PO DAILY 05/26/20 Family Medical History Family History: Unable to Obtain Family Hx Cancer: Sister (Hodgkin's Lymphoma- age 24) Review of Systems - Review of Systems Constitutional: denies: Chills, Fever Eyes: reports: No Symptoms HENT: reports: Throat Pain Neck: reports: No Symptoms Cardiovascular: reports: Shortness of Breath. denies: Chest Pain Respiratory: reports: SOB. denies: Cough Gastrointestinal: reports: Bloating Genitourinary: reports: No Symptoms Physical Exam Vital Signs: Vital Signs Temperature 98.8 F 06/14/20 15:00 Pulse Rate 122 H 06/14/20 15:00 Respiratory Rate 26 H 06/14/20 15:00 Blood Pressure 136/78 06/14/20 15:00 O2 Sat by Pulse Oximetry (%) 99 06/14/20 12:28 Constitutional: Yes: Anxious, Moderate Distress Eyes: Yes: Conjunctiva Clear HENT: Yes: Atraumatic, Normocephalic Neck: Yes: Supple Cardiovascular: Yes: Regular Rate and Rhythm Respiratory: Yes: CTA Bilaterally, Diminished (at bases) Gastrointestinal: Yes: Normal Bowel Sounds, Soft, Other (patient didnot cooperate with exam, unable to lay flat on back) ...Rectal Exam: Yes: Deferred Edema: No Psychiatric: Yes: Alert Labs: CBC, BMP 06/14/20 07:35 06/14/20 07:35 blood and urine cultures sent ua contaminated with epis- no LE Imaging - Results Cat Scan: Report Reviewed, Image Reviewed (no PE, bilateral pleural effusions, extensive mediastinal lymphadenopathy) Problem List - Problems (1) AML (acute myeloblastic leukemia) Code(s): C92.00 - ACUTE MYELOBLASTIC LEUKEMIA, NOT HAVING ACHIEVED REMISSION (2) Shortness of breath Code(s): R06.02 - SHORTNESS OF BREATH Assessment/Plan admit to ICU management per oncology no signs of infection at this time no fevers he is not neutropenic cultures sent and pending
--- NOTE | 2020-06-14 17:42 | PN ---
Teaching Attending Note Name of Resident: Alee Nelson ATTENDING PHYSICIAN STATEMENT I saw and evaluated the patient. I reviewed the resident's note and discussed the case with the resident. I agree with the resident's findings and plan as documented. 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 WBC 198,000. 30,000 blasts CTA -- b/l pleural effusions Received lasix x 1 dose Cr 1.5 LDG -430s Uric acid 9.7 severely anemic --6.2 --- received PRBCs Patient And O x3. Very frustated by stay on the ER will admit to icu given high risk of tumor lysis Dose rasburicase 6mg IVSS x 1 dose check G-6 PD Dose hydrea Will start decitabine in AM Monitor for tumor lysis gentle hydration consult renal/cardio teams discussed with sister at bed side
[2020-06-14] MEDS ORDERED: RASBURICASE 6 MG in SODIUM CHLORIDE 50 ML IVPB ONE (18:00)
[2020-06-14 20:01] LABS: INR 1.31 (0.83-1.09); PROTHROMBIN TIME (PATIENT) 15.5 SEC (9.7-13.0)
[2020-06-14 20:17] LABS: BLOOD UREA NITROGEN 24.9 mg/dL (7-18); CREATININE 1.6 mg/dL (0.55-1.3)
[2020-06-14 20:18] LABS: ALBUMIN 2.7 g/dl (3.4-5.0); BILIRUBIN,TOTAL 0.9 mg/dL (0.2-1); CALCIUM 8.7 mg/dL (8.5-10.1); MAGNESIUM 1.8 mg/dL (1.8-2.4); PHOSPHOROUS 3.7 mg/dL (2.5-4.9); POTASSIUM 3.8 mmol/L (3.5-5.1); TOT PROT 7.6 g/dl (6.4-8.2); URIC ACID 9.6 mg/dL (2.6-7.2)
[2020-06-14 20:49] LABS: HEMATOCRIT 25.4 % (35.4-49); HEMOGLOBIN 7.6 GM/dL (11.7-16.9); MCHC 29.9 g/dl (32.0-35.9); MEAN CELL VOLUME 83.3 fl (80-96); MEAN PLT VOLUME 10.1 fl (7.5-11.1); PLATELET COUNT 91 K/MM3 (134-434); RBC 3.05 M/mm3 (4.00-5.60); RDW 18.7 % (11.9-15.9)
[2020-06-14] MEDS ORDERED: MORPHINE SULFATE 2 MG/ML VIAL IM ONE (21:25)
[2020-06-14] MEDS ORDERED: CHLORHEXIDINE GLUCONATE 4% CLEANSER FOR DECOLONIZATION TP SCH (22:00)
[2020-06-14] MEDS ORDERED: ACETAMINOPHEN 325 MG TABLET (FP) PO PRN (22:11)
[2020-06-14] MEDS: MUPIROCIN 2% TOPICAL OINTMENT FOR DECOLONIZATION NS SCH (22:22)
[2020-06-14] MEDS ORDERED: ACETAMINOPHEN INJECTION 100 ML IVPB ONE (22:30)
[2020-06-14] MEDS: ACETAMINOPHEN 1000 MG/100 ML VIAL (NON FORMULARY) IVPB PRN (22:34)
[2020-06-14] MEDS ORDERED: HYDROXYUREA 500 MG CAPSULE PO ONE ×2 (23:00)
--- NOTE | 2020-06-14 23:05 | PN ---
Progress Note (short form) - Note Progress Note: Assessed pt, pt alert and oriented x 3. He was using abdominal muscles to breathe and not speaking in full sentences. Pt is currently not cooperative with being cardiac monitored and use of supplemental oxygen. Pt states he cannot sleep with these on his body. Explained importance of having close monitoring and supplemental oxygen multiple times including the possibility that his current breathing may lead to acute respiratory failure requiring a breathing tube. Pt continues to refuse care due to inability to sleep. Pt is currently also refusing Hydroxyurea 2000mg (as per Dr. Galindo), will not allow for full Physical exam, other testing to be done such as ABG or CXR for further evaluation. Spoke to sister, who stated that she said that pt is frustrated, hasn't been sleeping for weeks and was annoyed at the prolonged ER stay. SHe stated that now that he has bed, he wants to sleep without any disturbances. Sister believes that pt is frustrated and this current noncompliance is not out of the norm for his behavior. At this time, pt has capacity to make his own medical decisions. Dr. 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 Discussed with sister about concerns about his non-sustainable breathing and expressed to pt his sister's desire to speak with him.
[2020-06-14 23:16] LABS: WHITE BLOOD COUNT 201.7 K/mm3 (4.0-10.0)
[2020-06-14 23:31] LABS: ANISOCYTOSIS 1+; MACROCYTOSIS 0; PLATELET ESTIMATE DECREASED
[2020-06-15] MEDS: ACETAMINOPHEN 1000 MG/100 ML VIAL (NON FORMULARY) IVPB PRN ×2 (05:36→19:52)
[2020-06-15 05:42] LABS: MAGNESIUM 1.6 mg/dL (1.8-2.4); PHOSPHOROUS 4.8 mg/dL (2.5-4.9)
[2020-06-15] MEDS ORDERED: HYDROXYUREA 500 MG CAPSULE PO ONE ×2 (06:02→18:00)
--- NOTE | 2020-06-15 06:39 | CONSULT ---
Consult Consult Specialty:: Nephrology Reason for Consultation:: ckd - History of Present Illness Chief Complaint: shortness of breath and edema History of Present Illness: Pt is a 70 year old gentleman with pmhx of htn, hld, ckd, and cmp converted to aml who presents to the ER with progressive shortness of breath and edema. He has felt it worsen over the last 5 days. He denies dysuria or hematuria. He denies fevers or chills. He is scheduled for inpatient chemotherapy. I was called to evaluate his volume status and assist with tumor lysis if it were to occur. He did feel better after getting lasix. - History Source History Provided By: Patient, Medical Record - Past Medical History Cardio/Vascular: Yes: HTN, Hyperlipdemia Gastrointestinal: Yes: GERD, Other (Ischemic Colitis) - Past Surgical History Past Surgical History: Yes: Arthrosocopy (Left Shoulder) - Alcohol/Substance Use Hx Alcohol Use: Yes (scotch) History of Substance Use: reports: None - Smoking History Smoking history: Former smoker Have you smoked in the past 12 months: No Aproximately how many cigarettes per day: 10 If you are a former smoker, when did you quit?: 1 yr ago - Social History Usual Living Arrangement: Alone ADL: Independent History of Recent Travel: No Home Medications - Allergies Allergies/Adverse Reactions: Allergies Allergy/AdvReac Type Severity Reaction Status Date / Time Penicillins Allergy Severe Rash Verified 12/20/19 08:26 - Home Medications Home Medications: Ambulatory Orders Omeprazole [Prilosec] 40 mg PO DAILY 01/26/12 Budesonide 8.6 gm NS PRN 05/16/19 Allopurinol [Zyloprim -] 100 mg PO DAILY 05/25/20 Colchicine 0.6 mg PO BID 05/25/20 Famotidine [Acid Cmo & President] 10 mg PO ASDIR 05/25/20 Propylene Glycol/Peg 400/Pf [Systane 0.3-0.4% Eye Drops] 1 each OP DAILY 05/25/20 Atorvastatin Ca [Lipitor] 20 mg PO DAILY 05/26/20 Lisinopril 10 mg PO DAILY 05/26/20 Metoprolol Tartrate 50 mg PO DAILY 05/26/20 Family Medical History Family Hx Cancer: Sister (Hodgkin's Lymphoma- age 24) Review of Systems - Review of Systems Constitutional: reports: Loss of Appetite, Malaise, Weakness Eyes: reports: No Symptoms HENT: reports: No Symptoms Neck: reports: No Symptoms Cardiovascular: reports: Edema, Shortness of Breath Respiratory: reports: SOB on Exertion Gastrointestinal: reports: No Symptoms Genitourinary: reports: No Symptoms Musculoskeletal: reports: No Symptoms Integumentary: reports: No Symptoms Neurological: reports: No Symptoms Endocrine: reports: No Symptoms Hematology/Lymphatic: reports: No Symptoms Psychiatric: reports: No Symptoms Physical Exam Vital Signs: Vital Signs Temperature 98.6 F 06/14/20 18:25 Pulse Rate 113 H 06/14/20 20:00 Respiratory Rate 25 H 06/14/20 20:00 Blood Pressure 119/62 06/14/20 20:00 O2 Sat by Pulse Oximetry (%) 99 06/14/20 20:00 Constitutional: Yes: Calm Eyes: Yes: Conjunctiva Clear HENT: Yes: Atraumatic Neck: Yes: Supple Cardiovascular: Yes: S1, S2 Respiratory: Yes: CTA Bilaterally Gastrointestinal: Yes: Soft Renal/: Yes: WNL Musculoskeletal: Yes: WNL Edema: Yes Edema: LLE: 1+, RLE: 1+ Neurological: Yes: Oriented Psychiatric: Yes: Oriented Labs: CBC, BMP 06/14/20 20:30 06/14/20 19:20 Laboratory Tests 04/28/20 04/28/20 06/01/20 10:18 10:18 13:48 WBC 72.9 H* Sodium Potassium Creatinine 1.5 H 1.5 H Phosphorus Magnesium 06/07/20 06/07/20 06/13/20 11:38 11:38 18:20 WBC 123.2 H* 189.4 H* Sodium Potassium Creatinine 1.5 H Phosphorus Magnesium 06/13/20 06/14/20 06/14/20 18:20 07:35 07:35 WBC Sodium 134 L Potassium Creatinine 1.4 H 1.5 H Phosphorus 4.8 Magnesium 1.6 L 06/14/20 06/15/20 06/15/20 19:20 06:25 06:25 WBC 204.2 H* Sodium 134 L Potassium 3.3 L Creatinine 1.5 H Phosphorus 3.7 3.7 Magnesium 1.8 1.8 Imaging - Results Cat Scan: Report Reviewed Assessment/Plan Current Medications Generic Name Dose Route Start Last Admin Trade Name Freq PRN Reason Stop Dose Admin Acetaminophen 1,000 mg 06/14/20 22:23 06/15/20 05:36 Ofirmev Injection - IVPB 06/15/20 22:23 1,000 mg Q6H PRN Administration PAIN LEVEL 6-10 Allopurinol 300 mg 06/14/20 11:45 06/14/20 12:58 Zyloprim - PO 300 mg DAILY ERMELINDA Administration Chlorhexidine Gluconate 1 applic 06/14/20 22:00 06/14/20 22:09 Hibiclens For Decolonization - TP 1 applic HS ERMELINDA Administration Hydroxyurea 1,000 mg 06/15/20 22:00 Hydrea - PO BID ERMELINDA Sodium Chloride 1,000 mls @ 42 mls/hr 06/14/20 17:35 06/14/20 18:38 Normal Saline - IV 06/15/20 14:44 42 mls/hr ASDIR ERMELINDA Administration Mupirocin 1 applic 06/14/20 22:00 06/14/20 22:22 Bactroban Ointment (For Decolonization) - NS 06/19/20 21:59 1 applic BID ERMELINDA Administration Impression 1. CKD 2. CML 3. AML 4. pleural effusions 5. htn Plan - cont to monitor lytes - monitor uric acid and phos levels - cont fluids with close monitoring of volume status - lasix prn - will discus with oncology - will follow pt - ct scan report reviewed - monitor pulse ox - cont allopurinol
[2020-06-15 07:19] LABS: BASO % 1.1 % (0-2.0); EOS % 0.2 % (0-4.5); HEMATOCRIT 24.6 % (35.4-49); HEMOGLOBIN 7.5 GM/dL (11.7-16.9); LYMPH % 3.4 % (8-40); MCH 25.1 pg (25.7-33.7); MCHC 30.5 g/dl (32.0-35.9); MEAN CELL VOLUME 82.4 fl (80-96); MEAN PLT VOLUME 9.6 fl (7.5-11.1); MONO % 45.3 % (3.8-10.2); PLATELET COUNT 92 K/MM3 (134-434); RBC 2.99 M/mm3 (4.00-5.60); RDW 19.1 % (11.9-15.9)
[2020-06-15 07:35] LABS: ALBUMIN 2.5 g/dl (3.4-5.0); BLOOD UREA NITROGEN 22.3 mg/dL (7-18); CALCIUM 8.7 mg/dL (8.5-10.1); CREATININE 1.5 mg/dL (0.55-1.3); MAGNESIUM 1.8 mg/dL (1.8-2.4); POTASSIUM 3.3 mmol/L (3.5-5.1); TOT PROT 6.8 g/dl (6.4-8.2)
[2020-06-15 07:39] LABS: PHOSPHOROUS 3.7 mg/dL (2.5-4.9)
[2020-06-15 07:50] LABS: WHITE BLOOD COUNT 204.2 K/mm3 (4.0-10.0)
--- NOTE | 2020-06-15 08:34 | PN ---
Progress Note, Physician - Current Medication List Current Medications: Active Medications Acetaminophen (Ofirmev Injection -) 1,000 mg IVPB Q6H PRN PRN Reason: PAIN LEVEL 6-10 Stop: 06/15/20 22:23 Last Admin: 06/15/20 05:36 Dose: 1,000 mg Documented by: Allopurinol (Zyloprim -) 300 mg PO DAILY [facility] Last Admin: 06/14/20 12:58 Dose: 300 mg Documented by: Chlorhexidine Gluconate (Hibiclens For Decolonization -) 1 applic TP HS [facility] Last Admin: 06/14/20 22:09 Dose: 1 applic Documented by: Hydroxyurea (Hydrea -) 1,000 mg PO BID [facility] Sodium Chloride (Normal Saline -) 1,000 mls @ 42 mls/hr IV ASDIR [facility] Stop: 06/15/20 14:44 Last Admin: 06/14/20 18:38 Dose: 42 mls/hr Documented by: Potassium Chloride (Potassium Chloride 10 Meq Premix Ivpb -) 10 meq in 100 mls @ 100 mls/hr IVPB Q60M [facility] Stop: 06/15/20 10:14 Mupirocin (Bactroban Ointment (For Decolonization) -) 1 applic NS BID [facility] Stop: 06/19/20 21:59 Last Admin: 06/14/20 22:22 Dose: 1 applic Documented by: - Objective Vital Signs: Vital Signs Temperature 98.7 F 06/15/20 03:00 Pulse Rate 110 H 06/15/20 08:00 Respiratory Rate 26 H 06/15/20 08:00 Blood Pressure 129/97 06/15/20 08:00 O2 Sat by Pulse Oximetry (%) 97 06/15/20 08:00 Cardiovascular: Yes: Tachycardia, S1, S2 Respiratory: Yes: On Nasal O2, Rales, SOB Gastrointestinal: Yes: Normal Bowel Sounds, Soft Edema: Yes Labs: CBC, BMP 06/15/20 06:25 06/15/20 06:25 INR, PTT INR 1.31 (0.83-1.09) H 06/14/20 19:20 Fibrinogen > 500.0 mg/dL (238-498) H 06/14/20 19:20 Problem List - Problems (1) Symptomatic anemia Assessment/Plan: Appreciate Hematology consult PRBCs given in ED---further transfusion per hem Monitor CBC Stool Occult- neg Code(s): D64.9 - ANEMIA, UNSPECIFIED (2) AML (acute myeloblastic leukemia) Assessment/Plan: Appreciate Oncology consult Patient reports chemotherapy scheduled for 06/14 WBC Laboratory Tests 06/14/20 06/14/20 06/15/20 07:35 20:30 06:25 WBC 198.2 H* 201.7 H* 204.2 H* Monitor CBC Orders 06/14/20 11:45 Allopurinol [Zyloprim -] 300 mg PO DAILY Decitabine 41 mg Sodium Chloride [Normal Saline -] 100 ml IV ONCE 06/15/20 22:00 Hydroxyurea [Hydrea -] 1,000 mg PO BID Code(s): C92.00 - ACUTE MYELOBLASTIC LEUKEMIA, NOT HAVING ACHIEVED REMISSION (3) CHF (congestive heart failure) Assessment/Plan: Chest Xray-Increased congestion Lasix ivdc ns Strict INOs Daily weight Monitor CBC, CMP O2 DC NS Code(s): I50.9 - HEART FAILURE, UNSPECIFIED (4) HTN (hypertension) Assessment/Plan: monitor on current meds Vital Signs Period Temp Pulse Resp BP Sys/Carrillo Pulse Ox Last 24 Hr 98 F-98.8 F 80-122 22-26 119-143/62-97 90-99 Code(s): I10 - ESSENTIAL (PRIMARY) HYPERTENSION
[2020-06-15] MEDS ORDERED: FUROSEMIDE 40 MG/4 ML INJECTABLE VIAL IVPUSH ONE (08:50)
--- NOTE | 2020-06-15 09:36 | PN ---
Progress Note, Physician Chief Complaint: Events noted. In ICU due to risk of tumor lysis syndrome. tele neg History of Present Illness: 70M w/hx HTN, HLD, CML with recent development of AML p/w 4 days of worsening shortness of breath. He reports worsening orthopnea alongside bilateral lower extremity swelling for the last 4 days. He reports that he "always has a fast heart rate". He denies palpitations, dizziness or syncope. Exercise tolerance is very poor. He was awaiting chemo. ECG stach lad rbbb. TnI negative. CTA 06/14/20 no PE, bilat effusions R>L admitted to ICU due to risk of tumor lysis syndrome. Hydrea ordered, not given yet due to patient refusal. echo pending. awaiting chemotherapy. - Current Medication List Current Medications: Active Medications Acetaminophen (Ofirmev Injection -) 1,000 mg IVPB Q6H PRN PRN Reason: PAIN LEVEL 6-10 Stop: 06/15/20 22:23 Last Admin: 06/15/20 05:36 Dose: 1,000 mg Documented by: Allopurinol (Zyloprim -) 300 mg PO DAILY [facility] Last Admin: 06/14/20 12:58 Dose: 300 mg Documented by: Chlorhexidine Gluconate (Hibiclens For Decolonization -) 1 applic TP HS [facility] Last Admin: 06/14/20 22:09 Dose: 1 applic Documented by: Hydroxyurea (Hydrea -) 1,000 mg PO BID [facility] Potassium Chloride (Potassium Chloride 10 Meq Premix Ivpb -) 10 meq in 100 mls @ 100 mls/hr IVPB Q60M [facility] Stop: 06/15/20 10:14 Mupirocin (Bactroban Ointment (For Decolonization) -) 1 applic NS BID [facility] Stop: 06/19/20 21:59 Last Admin: 06/14/20 22:22 Dose: 1 applic Documented by: - Objective Vital Signs: Vital Signs Temperature 98.7 F 06/15/20 03:00 Pulse Rate 110 H 06/15/20 08:00 Respiratory Rate 26 H 06/15/20 08:00 Blood Pressure 129/97 06/15/20 08:00 O2 Sat by Pulse Oximetry (%) 97 06/15/20 08:00 Constitutional: Yes: No Distress, Calm Eyes: Yes: EOM Intact HENT: Yes: Normocephalic Neck: Yes: Trachea Midline Cardiovascular: Yes: Regular Rate and Rhythm, Tachycardia Respiratory: Yes: Dullness (bilat bases) Gastrointestinal: Yes: Soft Musculoskeletal: Yes: WNL Extremities: Yes: WNL Edema: No Labs: CBC, BMP 06/15/20 06:25 06/15/20 06:25 INR, PTT INR 1.31 (0.83-1.09) H 06/14/20 19:20 Fibrinogen > 500.0 mg/dL (238-498) H 06/14/20 19:20 Assessment/Plan 70M w/hx HTN, HLD, CML with recent development of AML p/w 4 days of worsening shortness of breath. He reports worsening orthopnea alongside bilateral lower extremity swelling for the last 4 days. He reports that he "always has a fast heart rate". He denies palpitations, dizziness or syncope. Exercise tolerance is very poor. He was awaiting chemo. ECG stach lad rbbb. TnI negative. CTA 06/14/20 no PE, bilat effusions R>L admitted to ICU due to risk of tumor lysis syndrome. Hydrea ordered, not given yet due to patient refusal. echo pending. awaiting chemotherapy. IMP: -sinus tachycardia due to AML, severe anemia. -no evidence of ACS -no evidence of PE -echo pending. -will follow with you.
[2020-06-15] MEDS ORDERED: HYDROXYUREA 500 MG CAPSULE PO SCH ×2 (10:00→22:00)
[2020-06-15] MEDS: KCL 10 MEQ IVPB 10 MEQ/100 ML INFUS.BAG IVPB SCH ×3 (10:20→12:09)
[2020-06-15] MEDS: ALLOPURINOL 300 MG TABLET (FP) PO SCH (10:20)
[2020-06-15] MEDS: MUPIROCIN 2% TOPICAL OINTMENT FOR DECOLONIZATION NS SCH (10:20)
[2020-06-15] MEDS ORDERED: POTASSIUM CHLORIDE TABS 20 MEQ TABLET.ER (FP) PO ONE (11:53)
--- NOTE | 2020-06-15 12:35 | ECHO ---
Name: VINCENT JOYNER, Exam:Adult Echocardiogram Study Date: 06/15/2020 11:28 AM Age: 70 yrs Reason For Study: CHF Height: 69 in Weight: 182 lb BSA: 2.0 m2 MMode/2D Measurements & Calculations IVSd: 0.93 cm Ao root diam: 3.6 cm LVIDd: 4.6 cm LA dimension: 3.0 cm LVIDs: 3.3 cm LVPWd: 0.92 cm EDV(Teich): 96.8 ml LVOT diam: 2.0 cm ESV(Teich): 44.0 ml LAV (MOD-bp): 101.0 ml Doppler Measurements & Calculations MV E max imtiaz: 136.0 cm/sec Ao V2 max: 178.8 cm/sec MV A max imtiaz: 85.3 cm/sec Ao max P.8 mmHg MV E/A: 1.6 MV dec time: 0.08 sec ROMAN(V,D): 1.5 cm2 LV V1 max P.7 mmHg PA V2 max: 78.4 cm/sec LV V1 max: 82.6 cm/sec PA max P.5 mmHg Med Peak E' Imtiaz: 2.9 cm/sec Med E/e': 46.3 Lat Peak E' Imtiaz: 3.6 cm/sec Lat E/e': 38.0 Procedure A complete two-dimensional transthoracic echocardiogram was performed (2D, M-mode, Doppler and color flow Doppler). Left Ventricle The left ventricular size, thickness and function are normal. Ejection Fraction = 55%. E/A reversal c onsistent with but not diagnostic of poor LV compliance. Septal motion is consistent with conduction abnormalit y. Right Ventricle The right ventricle is normal in size and function. Atria Normal left and right atrial size and function. Mitral Valve The mitral valve is normal in structure and function. There is trace mitral regurgitation. Tricuspid Valve The tricuspid valve is normal in structure and function. There is trace tricuspid regurgitation. Ther e was insufficient TR detected to calculate RV systolic pressure. Aortic Valve There is mild to moderate aortic sclerosis.;. Pulmonic Valve The pulmonic valve is normal in structure and function. Great Vessels The aortic root is normal size. Pericardium/Pleura There is no pericardial effusion. There is no pleural effusion. Interpretation Summary The left ventricular size, thickness and function are normal Ejection Fraction = 55%. Septal motion is consistent with conduction abnormality. There is trace mitral regurgitation. There is trace tricuspid regurgitation. There is mild to moderate aortic sclerosis.; MD Jl Singh 06/15/2020 12:34 PM
--- NOTE | 2020-06-15 12:39 | PN ---
Physical Exam: SUBJECTIVE: Patient seen and examined at bedside this morning. Patient reported he was able to sleep a few hours last night. Cooperative today. OBJECTIVE: Vital Signs Temperature 98.7 F 06/15/20 03:00 Pulse Rate 110 H 06/15/20 08:00 Respiratory Rate 26 H 06/15/20 08:00 Blood Pressure 129/97 06/15/20 08:00 O2 Sat by Pulse Oximetry (%) 97 06/15/20 11:53 GENERAL: Awake, alert, and fully oriented, on 3L NC HEAD: Normal with no signs of trauma. EYES: PERRLA, EOMI, sclera anicteric, conjunctiva clear. EARS, NOSE, THROAT: Dry mucous membranes. NECK: Normal range of motion, supple LUNGS: Decreased breath sounds on bilateral bases HEART: Tachycardic, normal S1 and S2 ABDOMEN: Soft, protruberant, NABS, +splenomegaly MUSCULOSKELETAL: Normal range of motion at all joints. LOWER EXTREMITIES: 2+ pulses, warm, well-perfused. Trace peripheral edema NEUROLOGICAL: Cranial nerves II-XII intact. Normal speech. PSYCHIATRIC: Cooperative. Good eye contact. SKIN: Warm, dry, normal turgor Laboratory Results - last 24 hr 06/14/20 06/14/20 06/14/20 00:30 07:35 19:20 WBC Corrected WBC (auto) RBC Hgb Hct MCV MCH MCHC RDW Plt Count MPV Absolute Neuts (auto) Neutrophils % Neutrophils % (Manual) Band Neutrophils % Lymphocytes % Lymphocytes % (Manual) Monocytes % Monocytes % (Manual) Eosinophils % Eosinophils % (Manual) Basophils % Basophils % (Manual) Myelocytes % (Man) Promyelocytes % (Man) Blast Cells % (Manual) Nucleated RBC % Metamyelocytes Hypochromia Platelet Estimate Polychromasia Poikilocytosis Anisocytosis Microcytosis Macrocytosis PT with INR 15.50 H INR 1.31 H PTT (Actin FS) 30.0 Fibrinogen Sodium Potassium Chloride Carbon Dioxide Anion Gap BUN Creatinine Est GFR (CKD-EPI)AfAm Est GFR (CKD-EPI)NonAf Random Glucose Uric Acid Calcium Phosphorus 4.8 Magnesium 1.6 L Total Bilirubin AST ALT Alkaline Phosphatase LD Total Troponin I < 0.02 Total Protein Albumin COVID-19 (SHONNA) Not detected 06/14/20 06/14/20 06/14/20 19:20 19:20 20:30 WBC 201.7 H* Corrected WBC (auto) RBC 3.05 L Hgb 7.6 L Hct 25.4 L MCV 83.3 MCH 25.0 L MCHC 29.9 L RDW 18.7 H Plt Count 91 L MPV 10.1 Absolute Neuts (auto) Neutrophils % No Result Required. Neutrophils % (Manual) 34.6 L Band Neutrophils % 5.6 Lymphocytes % No Result Required. Lymphocytes % (Manual) 12.1 D Monocytes % Monocytes % (Manual) 5 Eosinophils % Eosinophils % (Manual) 0.0 Basophils % Basophils % (Manual) 0.9 Myelocytes % (Man) 8 H D Promyelocytes % (Man) 2 D Blast Cells % (Manual) 27 H Nucleated RBC % 2 H Metamyelocytes 5 H D Hypochromia 0 Platelet Estimate Decreased Polychromasia 1+ Poikilocytosis 0 Anisocytosis 1+ Microcytosis 1+ Macrocytosis 0 PT with INR INR PTT (Actin FS) Fibrinogen > 500.0 H Sodium 134 L Potassium 3.8 Chloride 99 Carbon Dioxide 22 Anion Gap 12 BUN 24.9 H Creatinine 1.6 H Est GFR (CKD-EPI)AfAm 49.50 Est GFR (CKD-EPI)NonAf 42.71 Random Glucose 89 Uric Acid 9.6 H Calcium 8.7 Phosphorus 3.7 Magnesium 1.8 Total Bilirubin 0.9 AST 48 H ALT 14 Alkaline Phosphatase 302 H LD Total 381 H Troponin I Total Protein 7.6 Albumin 2.7 L COVID-19 (SHONNA) 06/15/20 06/15/20 06:25 06:25 WBC 204.2 H* Corrected WBC (auto) RBC 2.99 L Hgb 7.5 L Hct 24.6 L MCV 82.4 MCH 25.1 L MCHC 30.5 L RDW 19.1 H Plt Count 92 L MPV 9.6 Absolute Neuts (auto) 102.2 H Neutrophils % 50.0 D Neutrophils % (Manual) Band Neutrophils % Lymphocytes % 3.4 L D Lymphocytes % (Manual) Monocytes % 45.3 H D Monocytes % (Manual) Eosinophils % 0.2 Eosinophils % (Manual) Basophils % 1.1 Basophils % (Manual) Myelocytes % (Man) Promyelocytes % (Man) Blast Cells % (Manual) Nucleated RBC % 1 H Metamyelocytes Hypochromia Platelet Estimate Polychromasia Poikilocytosis Anisocytosis Microcytosis Macrocytosis PT with INR INR PTT (Actin FS) Fibrinogen Sodium 134 L Potassium 3.3 L Chloride 100 Carbon Dioxide 24 Anion Gap 9 BUN 22.3 H Creatinine 1.5 H Est GFR (CKD-EPI)AfAm 53.52 Est GFR (CKD-EPI)NonAf 46.17 Random Glucose 89 Uric Acid 4.0 Calcium 8.7 Phosphorus 3.7 Magnesium 1.8 Total Bilirubin 1.0 AST 40 H ALT 10 L Alkaline Phosphatase 264 H LD Total 333 H Troponin I Total Protein 6.8 Albumin 2.5 L COVID-19 (SHONNA) Active Medications Generic Name Dose Route Start Last Admin Trade Name Freq PRN Reason Stop Dose Admin Acetaminophen 1,000 mg 06/14/20 22:23 06/15/20 05:36 Ofirmev Injection - IVPB 06/15/20 22:23 1,000 mg Q6H PRN Administration PAIN LEVEL 6-10 Allopurinol 300 mg 06/14/20 11:45 06/15/20 10:20 Zyloprim - PO 300 mg DAILY ERMELINDA Administration Chlorhexidine Gluconate 1 applic 06/14/20 22:00 06/14/20 22:09 Hibiclens For Decolonization - TP 1 applic HS ERMELINDA Administration Hydroxyurea 1,000 mg 06/15/20 22:00 Hydrea - PO BID ERMELINDA Mupirocin 1 applic 06/14/20 22:00 06/15/20 10:20 Bactroban Ointment (For Decolonization) - NS 06/19/20 21:59 1 applic BID ERMELINDA Administration ASSESSMENT/PLAN: Patient is a 70 year old male with past medical history of HTN, HLD, CKD, 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 We have been consulted for further evaluation of CMML. #CMML with blast crisis, high risk for tumor lysis -Chest CTA : no evidence of PE, bilateral pleural efuusions, R>L, extensive LAD involving the mediastinal, bilateral hilar, bilateral axillary and upper abdominal LN chains. Splenomegaly. -WBC 198k, ANC [id number] on admission -Rasburicase 6mg x1, then Hydrea 1000mg bid started 06/14 -G6PD level pending -plan to start C1 Decitabine today -Will increase home Allopurinol dose to 300mg daily -gentle IVF hydration to offset TLS -monitor CBC, CMP, Mg, LDH, uric acid daily -r/o sepsis - blood cx, urine cx -pulm consulted. recs appreciated. -cardio consulted. recs appreciated. -ID consulted. recs appreciated. -nephro consulted. recs appreciated. Visit type - Emergency Visit Emergency Visit: Yes ED Registration Date: 06/14/20 Care time: The patient presented to the Emergency Department on the above date and was hospitalized for further evaluation of their emergent condition. - New Patient This patient is new to me today: No - Critical Care Critical Care patient: No - Medication Review Med list reviewed for High Risk Meds patients 65 and older: Yes ATTENDING PHYSICIAN STATEMENT I saw and evaluated the patient. I reviewed the resident's note and discussed the case with the resident. I agree with the resident's findings and plan as documented. SUBJECTIVE: OBJECTIVE: ASSESSMENT AND PLAN:
--- NOTE | 2020-06-15 13:56 | PN ---
Teaching Attending Note Name of Resident: Dianne Martines ATTENDING PHYSICIAN STATEMENT I saw and evaluated the patient. I reviewed the resident's note and discussed the case with the resident. I agree with the resident's findings and plan as documented. SUBJECTIVE: Patient seen and examined in the ICU. More awake and alert. Mildly tachypneic at rest but improved from yesterday. Eating breakfast. Denies CP. Reports non-specific abdominal "tension" Intake & Output 06/12/20 06/13/20 06/14/20 06/15/20 23:59 23:59 23:59 23:59 Intake Total 822 Output Total 800 650 Balance -800 172 Weight 182 lb 181 lb 7.047 oz Last Vital Signs Temp Pulse Resp BP Pulse Ox 98.7 F 110 H 26 H 129/97 97 06/15/20 03:00 06/15/20 08:00 06/15/20 08:00 06/15/20 08:00 06/15/20 11:53 Active Medications Acetaminophen (Ofirmev Injection -) 1,000 mg IVPB Q6H PRN PRN Reason: PAIN LEVEL 6-10 Stop: 06/15/20 22:23 Last Admin: 06/15/20 05:36 Dose: 1,000 mg Documented by: Allopurinol (Zyloprim -) 300 mg PO DAILY [facility] Last Admin: 06/15/20 10:20 Dose: 300 mg Documented by: Chlorhexidine Gluconate (Hibiclens For Decolonization -) 1 applic TP HS [facility] Last Admin: 06/14/20 22:09 Dose: 1 applic Documented by: Hydroxyurea (Hydrea -) 1,000 mg PO BID [facility] Sodium Chloride (Normal Saline -) 1,000 mls @ 50 mls/hr IV ASDIR [facility] Stop: 06/16/20 13:59 Ondansetron HCl 8 mg/ Sodium (Chloride) 54 mls @ 216 mls/hr IVPB Q12H [facility] Stop: 06/16/20 02:14 Decitabine 41 mg/ Sodium (Chloride) 108.2 mls @ 108.2 mls/hr IV ONCE ONE Stop: 06/15/20 15:29 Mupirocin (Bactroban Ointment (For Decolonization) -) 1 applic NS BID [facility] Stop: 06/19/20 21:59 Last Admin: 08/18/20 10:20 Dose: 1 applic Documented by: GENERAL: Awake, alert, and fully oriented, Mildly dyspneic at rest HEAD: Normal with no signs of trauma. EYES: Pupils equal, round and reactive to light, extraocular movements intact LUNGS: Breath sounds equal, decreased at bases, (+) Mild accessory muscle use. HEART: Regular rate and rhythm, normal S1 and S2 ABDOMEN: Softly distended, mild non-specific tenderness, (+) BS, no guarding, no rebound, MUSCULOSKELETAL: No CVA tenderness. UPPER EXTREMITIES: 2+ pulses, warm, multiple ecchymosis of different stages LOWER EXTREMITIES: 2+ pulses, warm, well-perfused. No calf tenderness.2+ pitting edema NEUROLOGICAL: Non-focal Laboratory Results - last 24 hr 06/14/20 06/14/20 06/14/20 00:30 07:35 19:20 WBC Corrected WBC (auto) RBC Hgb Hct MCV MCH MCHC RDW Plt Count MPV Absolute Neuts (auto) Neutrophils % Neutrophils % (Manual) Band Neutrophils % Lymphocytes % Lymphocytes % (Manual) Monocytes % Monocytes % (Manual) Eosinophils % Eosinophils % (Manual) Basophils % Basophils % (Manual) Myelocytes % (Man) Promyelocytes % (Man) Blast Cells % (Manual) Nucleated RBC % Metamyelocytes Hypochromia Platelet Estimate Polychromasia Poikilocytosis Anisocytosis Microcytosis Macrocytosis PT with INR 15.50 H INR 1.31 H PTT (Actin FS) 30.0 Fibrinogen Sodium Potassium Chloride Carbon Dioxide Anion Gap BUN Creatinine Est GFR (CKD-EPI)AfAm Est GFR (CKD-EPI)NonAf Random Glucose Uric Acid Calcium Phosphorus 4.8 Magnesium 1.6 L Total Bilirubin AST ALT Alkaline Phosphatase LD Total Troponin I < 0.02 Total Protein Albumin COVID-19 (SHONNA) Not detected 06/14/20 06/14/20 06/14/20 19:20 19:20 20:30 WBC 201.7 H* Corrected WBC (auto) RBC 3.05 L Hgb 7.6 L Hct 25.4 L MCV 83.3 MCH 25.0 L MCHC 29.9 L RDW 18.7 H Plt Count 91 L MPV 10.1 Absolute Neuts (auto) Neutrophils % No Result Required. Neutrophils % (Manual) 34.6 L Band Neutrophils % 5.6 Lymphocytes % No Result Required. Lymphocytes % (Manual) 12.1 D Monocytes % Monocytes % (Manual) 5 Eosinophils % Eosinophils % (Manual) 0.0 Basophils % Basophils % (Manual) 0.9 Myelocytes % (Man) 8 H D Promyelocytes % (Man) 2 D Blast Cells % (Manual) 27 H Nucleated RBC % 2 H Metamyelocytes 5 H D Hypochromia 0 Platelet Estimate Decreased Polychromasia 1+ Poikilocytosis 0 Anisocytosis 1+ Microcytosis 1+ Macrocytosis 0 PT with INR INR PTT (Actin FS) Fibrinogen > 500.0 H Sodium 134 L Potassium 3.8 Chloride 99 Carbon Dioxide 22 Anion Gap 12 BUN 24.9 H Creatinine 1.6 H Est GFR (CKD-EPI)AfAm 49.50 Est GFR (CKD-EPI)NonAf 42.71 Random Glucose 89 Uric Acid 9.6 H Calcium 8.7 Phosphorus 3.7 Magnesium 1.8 Total Bilirubin 0.9 AST 48 H ALT 14 Alkaline Phosphatase 302 H LD Total 381 H Troponin I Total Protein 7.6 Albumin 2.7 L COVID-19 (SHONNA) 06/15/20 06/15/20 06:25 06:25 WBC 204.2 H* Corrected WBC (auto) RBC 2.99 L Hgb 7.5 L Hct 24.6 L MCV 82.4 MCH 25.1 L MCHC 30.5 L RDW 19.1 H Plt Count 92 L MPV 9.6 Absolute Neuts (auto) 102.2 H Neutrophils % 50.0 D Neutrophils % (Manual) Band Neutrophils % Lymphocytes % 3.4 L D Lymphocytes % (Manual) Monocytes % 45.3 H D Monocytes % (Manual) Eosinophils % 0.2 Eosinophils % (Manual) Basophils % 1.1 Basophils % (Manual) Myelocytes % (Man) Promyelocytes % (Man) Blast Cells % (Manual) Nucleated RBC % 1 H Metamyelocytes Hypochromia Platelet Estimate Polychromasia Poikilocytosis Anisocytosis Microcytosis Macrocytosis PT with INR INR PTT (Actin FS) Fibrinogen Sodium 134 L Potassium 3.3 L Chloride 100 Carbon Dioxide 24 Anion Gap 9 BUN 22.3 H Creatinine 1.5 H Est GFR (CKD-EPI)AfAm 53.52 Est GFR (CKD-EPI)NonAf 46.17 Random Glucose 89 Uric Acid 4.0 Calcium 8.7 Phosphorus 3.7 Magnesium 1.8 Total Bilirubin 1.0 AST 40 H ALT 10 L Alkaline Phosphatase 264 H LD Total 333 H Troponin I Total Protein 6.8 Albumin 2.5 L COVID-19 (SHONNA) ASSESSMENT/PLAN: 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
[2020-06-15] MEDS ORDERED: ONDANSETRON INJECTION 8 MG in SODIUM CHLORIDE 50 ML IVPB SCH (14:00)
[2020-06-15] MEDS ORDERED: SODIUM CHLORIDE 1,000 ML IV SCH (14:00)
[2020-06-15] MEDS ORDERED: SODIUM CHLORIDE IV ONE (14:30)
[2020-06-15] MEDS ORDERED: DECITABINE IV ONE (14:30)
[2020-06-15] MEDS ORDERED: ONDANSETRON 4 MG/2 ML VIAL ONE (14:39)
--- NOTE | 2020-06-15 14:59 | PN ---
Physical Exam: SUBJECTIVE: Patient seen and examined at bedside. pt states that he is short of breath since he is "[id number]". he complains that he is unable to sleep. OBJECTIVE: Vital Signs Period Temp Pulse Resp BP Sys/Carrillo Pulse Ox Last 24 Hr 98.6 F-98.8 F 110-122 22-26 119-143/62-97 90-99 GENERAL: The patient is awake, alert, and fully oriented, in no acute distress. exertional dyspnea HEAD: Normal with no signs of trauma. NECK: Trachea midline, full range of motion, supple. LUNGS: Breath sounds equal, bibasilar crackles. no accessory muscle use. HEART: Regular rate and rhythm, S1, S2 + systolic murmur ABDOMEN: Soft, TTP RUQ, distended, normoactive bowel sounds, no guarding EXTREMITIES: 2+ Edema b/l le Laboratory Last Values WBC 204.2 K/mm3 (4.0-10.0) H* 06/15/20 06:25 Corrected WBC (auto) K/mm3 06/15/20 06:25 RBC 2.99 M/mm3 (4.00-5.60) L 06/15/20 06:25 Hgb 7.5 GM/dL (11.7-16.9) L 06/15/20 06:25 Hct 24.6 % (35.4-49) L 06/15/20 06:25 MCV 82.4 fl (80-96) 06/15/20 06:25 MCH 25.1 pg (25.7-33.7) L 06/15/20 06:25 MCHC 30.5 g/dl (32.0-35.9) L 06/15/20 06:25 RDW 19.1 % (11.9-15.9) H 06/15/20 06:25 Plt Count 92 K/MM3 (134-434) L 06/15/20 06:25 MPV 9.6 fl (7.5-11.1) 06/15/20 06:25 Absolute Neuts (auto) 102.2 K/mm3 (1.5-8.0) H 06/15/20 06:25 Total Counted 100 06/13/20 18:20 Neutrophils % 50.0 % (42.8-82.8) D 06/15/20 06:25 Neutrophils % (Manual) 34.6 % (42.8-82.8) L 06/14/20 20:30 Band Neutrophils % 5.6 % 06/14/20 20:30 Lymphocytes % 3.4 % (8-40) L D 06/15/20 06:25 Lymphocytes % (Manual) 12.1 % (8-40) D 06/14/20 20:30 Monocytes % 45.3 % (3.8-10.2) H D 06/15/20 06:25 Monocytes % (Manual) 5 % (3.8-10.2) 06/14/20 20:30 Eosinophils % 0.2 % (0-4.5) 06/15/20 06:25 Eosinophils % (Manual) 0.0 % (0-4.5) 06/14/20 20:30 Basophils % 1.1 % (0-2.0) 06/15/20 06:25 Basophils % (Manual) 0.9 % (0-2.0) 06/14/20 20:30 Myelocytes % (Man) 8 % (0-2) H D 06/14/20 20:30 Promyelocytes % (Man) 2 % (0-2) D 06/14/20 20:30 Blast Cells % (Manual) 27 % (0-0) H 06/14/20 20:30 Nucleated RBC % 1 % (0-0) H 06/15/20 06:25 Metamyelocytes 5 % (0-2) H D 06/14/20 20:30 Differential Comment Man diff performed 06/13/20 18:20 Hypochromia 0 06/14/20 20:30 Platelet Estimate Decreased 06/14/20 20:30 Platelet Comment No clumping noted 06/14/20 07:35 Platelet Comment Slide scanned. 06/13/20 18:20 Polychromasia 1+ 06/14/20 20:30 Poikilocytosis 0 06/14/20 20:30 Basophilic Stippling 1+ 06/13/20 18:20 Anisocytosis 1+ 06/14/20 20:30 Microcytosis 1+ 06/14/20 20:30 Macrocytosis 0 06/14/20 20:30 Stomatocytes 1+ 06/14/20 07:35 PT with INR 15.50 SEC (9.7-13.0) H 06/14/20 19:20 INR 1.31 (0.83-1.09) H 06/14/20 19:20 PTT (Actin FS) 30.0 SECONDS (25.2-36.5) 06/14/20 19:20 Fibrinogen > 500.0 mg/dL (238-498) H 06/14/20 19:20 D-Dimer 57916 ng/ml (0-500) H 06/13/20 17:57 VBG pH 7.363 (7.310-7.410) 06/13/20 17:57 POC VBG pCO2 37.7 mmHg (38-52) L 06/13/20 17:57 POC VBG pO2 27.7 mmHg (28-48) L 06/13/20 17:57 VBG HCO3 21.0 mmol/L (23-29) L 06/13/20 17:57 VBG O2 Sat (Danis) 50.0 % (70-80) L 06/13/20 17:57 VBG Base Excess -4.0 mmol/L (-2-2) L 06/13/20 17:57 Sodium 134 mmol/L (136-145) L 06/15/20 06:25 Potassium 3.3 mmol/L (3.5-5.1) L 06/15/20 06:25 Chloride 100 mmol/L (98-107) 06/15/20 06:25 Carbon Dioxide 24 mmol/L (21-32) 06/15/20 06:25 Anion Gap 9 MMOL/L (8-16) 06/15/20 06:25 BUN 22.3 mg/dL (7-18) H 06/15/20 06:25 Creatinine 1.5 mg/dL (0.55-1.3) H 06/15/20 06:25 Est GFR (CKD-EPI)AfAm 53.52 06/15/20 06:25 Est GFR (CKD-EPI)NonAf 46.17 06/15/20 06:25 Random Glucose 89 mg/dL (74-106) 06/15/20 06:25 Uric Acid 4.0 mg/dL (2.6-7.2) 06/15/20 06:25 Calcium 8.7 mg/dL (8.5-10.1) 06/15/20 06:25 Phosphorus 3.7 mg/dL (2.5-4.9) 06/15/20 06:25 Magnesium 1.8 mg/dL (1.8-2.4) 06/15/20 06:25 Total Bilirubin 1.0 mg/dL (0.2-1) 06/15/20 06:25 AST 40 U/L (15-37) H 06/15/20 06:25 ALT 10 U/L (13-61) L 06/15/20 06:25 Alkaline Phosphatase 264 U/L (45-117) H 06/15/20 06:25 LD Total 333 U/L (87-246) H 06/15/20 06:25 Troponin I < 0.02 ng/ml (0.00-0.05) 06/14/20 07:35 B-Natriuretic Peptide 5172.7 pg/ml (5-125) H 06/13/20 18:20 Total Protein 6.8 g/dl (6.4-8.2) 06/15/20 06:25 Albumin 2.5 g/dl (3.4-5.0) L 06/15/20 06:25 Urine Color Yellow 06/14/20 01:10 Urine Appearance Cloudy 06/14/20 01:10 Urine pH 7.0 (5.0-8.0) D 06/14/20 01:10 Ur Specific [place] 1.031 (1.010-1.035) 06/14/20 01:10 Urine Protein 2+ (NEGATIVE) H 06/14/20 01:10 Urine Glucose (UA) Negative (NEGATIVE) 06/14/20 01:10 Urine Ketones Negative (NEGATIVE) 06/14/20 01:10 Urine Blood 1+ (NEGATIVE) H 06/14/20 01:10 Urine Nitrite Negative (NEGATIVE) 06/14/20 01:10 Urine Bilirubin Negative (NEGATIVE) 06/14/20 01:10 Urine Urobilinogen 1.0 mg/dL (0.2-1.0) 06/14/20 01:10 Ur Leukocyte Esterase Negative (NEGATIVE) 06/14/20 01:10 Urine WBC (Auto) 17 /uL (0-25.8) 06/14/20 01:10 Urine Casts (Auto) 3 /uL (0-3.1) 06/14/20 01:10 U Epithel Cells (Auto) >36 /uL (0-25.1) 06/14/20 01:10 Urine Bacteria (Auto) 38 /uL (0-1359) 06/14/20 01:10 Stool Occult Blood Negative (NEGATIVE) 06/14/20 01:20 COVID-19 (SHONNA) Not detected (Not Detected) 06/14/20 00:30 Blood Type O POSITIVE 06/14/20 00:01 Antibody Screen Negative 06/13/20 21:00 Crossmatch See Detail 06/13/20 21:00 Active Medications Generic Name Dose Route Start Last Admin Trade Name Freq PRN Reason Stop Dose Admin Acetaminophen 1,000 mg 06/14/20 22:23 06/15/20 05:36 Ofirmev Injection - IVPB 06/15/20 22:23 1,000 mg Q6H PRN Administration PAIN LEVEL 6-10 Allopurinol 300 mg 06/14/20 11:45 06/15/20 10:20 Zyloprim - PO 300 mg DAILY ERMELINDA Administration Chlorhexidine Gluconate 1 applic 06/14/20 22:00 06/14/20 22:09 Hibiclens For Decolonization - TP 1 applic HS ERMELINDA Administration Hydroxyurea 1,000 mg 06/15/20 22:00 Hydrea - PO BID ERMELINDA Sodium Chloride 1,000 mls @ 50 mls/hr 06/15/20 14:00 06/15/20 14:43 Normal Saline - IV 06/16/20 13:59 50 mls/hr ASDIR ERMELINDA Administration Ondansetron HCl 8 mg/ Sodium 54 mls @ 216 mls/hr 06/15/20 14:00 06/15/20 14:43 Chloride IVPB 06/16/20 02:14 216 mls/hr Q12H ERMELINDA Administration Decitabine 41 mg/ Sodium 108.2 mls @ 108.2 mls/hr 06/15/20 14:30 Chloride IV 06/15/20 15:29 ONCE ONE Mupirocin 1 applic 06/14/20 22:00 06/15/20 10:20 Bactroban Ointment (For Decolonization) - NS 06/19/20 21:59 1 applic BID ERMELINDA Administration Chest CTA: 1. No evidence of pulmonary embolism. 2. Bilateral pleural effusions, right greater than left. 3. Extensive lymphadenopathy involving the mediastinal, bilateral hilar, bilateral axillary and upper abdominal lymph node chains. The spleen is also enlarged. This suggests lymphoma. Clinical correlation and follow-up recommended. Please see above discussion. 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 admitted for HF exacerbation and tumor lysis syndrome Neuro: - no acute events Cardio: CHF, HLD, HTN -BNP:5172 -CXR reviewed, CT reviewed, B/L pleural effusions noted . see above . may need diuresis - echo EF 55% -strict I/Os, daily weights -cardio recs appreciated - stress test 08/2018. Small to moderate zone of inferior fixed defect from base to apex compatible with diaphragmatic attenuation 2. Normal left ventricular contraction with LV ejection fraction of 65%. - will resume home lisinopril and metoprolol Pulm: -CTA reviewed -no PE noted -maintain O2 >92%. on NC O2 GI -no events noted Heme/Onc: AML, anemia -high suspicion for tumor lysis -WBC 198k, ANC 47333, LDH 430, uric acid 9.7 on admission -Rasburicase 6mg x1, then Hydrea 1000mg bid started 06/14 -G6PD level pending -plan to start C1 Decitabine today as per heme/onc -Will increase home Allopurinol dose to 300mg daily -Heme/onc recs appreciated - will keep fluids at 60 cc/hr , monitor for signs of respiratory distress for TLS - if pt displays worsening AMS, respiratory distress may need leukopheresis, contact Dr. Galindo - close monitoring (BID) CBC, CMP, Mg, uric acid, LDH ID -pending blood cx, urine cx - pt afebrile Renal: SHADI vs CKD -Cr 1.5, cont to monitor F/E/N -IV NS @ 60 cc/hr -closely monitor lytes -sodium controlled diet DVT ppx: scds Dispo:will transfer to med/surg Visit type - Emergency Visit Emergency Visit: No - New Patient This patient is new to me today: No - Critical Care Critical Care patient: Yes Total Critical Care Time (in minutes): 36 Critical Care Statement: The care of this patient involved high complexity decision making to prevent further life threatening deterioration of the patient's condition and/or to evaluate & treat vital organ system(s) failure or risk of failure. - Discharge Referral Referred to [facility] Med [facility] No - Medication Review Med list reviewed for High Risk Meds patients 65 and older: Yes ATTENDING PHYSICIAN STATEMENT I saw and evaluated the patient. I reviewed the resident's note and discussed the case with the resident. I agree with the resident's findings and plan as documented. SUBJECTIVE: OBJECTIVE: ASSESSMENT AND PLAN:
[2020-06-15] MEDS: ONDANSETRON INJECTION 8 MG in SODIUM CHLORIDE 50 ML IVPB SCH (17:30)
--- NOTE | 2020-06-15 17:35 | PN ---
Teaching Attending Note Name of Resident: Alee Nelson ATTENDING PHYSICIAN STATEMENT I saw and evaluated the patient. I reviewed the resident's note and discussed the case with the resident. I agree with the resident's findings and plan as documented. 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 WBC 198,000. 30,000 blasts CTA -- b/l pleural effusions Received lasix x 1 dose severely anemic on admission Hb 6.2 --- received PRBCs Received one dose rasburicase 6mg IVSS.--> Uric acid decreased to 4. check G-6 PD Dose hydrea Decitabine C1D1 today May consider Venetoclax in the future Monitor for tumor lysis gentle hydration Joe renal/cardio teams input
[2020-06-15] MEDS ORDERED: BUDESONIDE NS SCH (18:30)
[2020-06-15] MEDS: METOPROLOL TARTRATE 50 MG TABLET (FP) PO SCH (18:34)
[2020-06-15 19:33] LABS: PLATELET ESTIMATE DECREASED
[2020-06-15] MEDS: ATORVASTATIN CA 20 MG TABLET (FP) PO SCH (21:37)
[2020-06-15] MEDS ORDERED: traZODone HCL 50 MG TABLET (FP) PO SCH (22:00)
[2020-06-16] MEDS ORDERED: ACETAMINOPHEN 325 MG TABLET (FP) PO ONE (01:32)
[2020-06-16 07:05] LABS: HEMATOCRIT 23.9 % (35.4-49); HEMOGLOBIN 7.3 GM/dL (11.7-16.9); MCH 25.3 pg (25.7-33.7); MCHC 30.4 g/dl (32.0-35.9); MEAN CELL VOLUME 83.1 fl (80-96); MEAN PLT VOLUME 9.7 fl (7.5-11.1); PLATELET COUNT 94 K/MM3 (134-434); RBC 2.87 M/mm3 (4.00-5.60); RDW 19.1 % (11.9-15.9)
[2020-06-16 07:26] LABS: ALBUMIN 2.2 g/dl (3.4-5.0); BILIRUBIN,TOTAL 0.5 mg/dL (0.2-1); BLOOD UREA NITROGEN 31.8 mg/dL (7-18); CALCIUM 8.4 mg/dL (8.5-10.1); CREATININE 1.6 mg/dL (0.55-1.3); MAGNESIUM 1.9 mg/dL (1.8-2.4); PHOSPHOROUS 5.6 mg/dL (2.5-4.9); POTASSIUM 3.4 mmol/L (3.5-5.1); TOT PROT 6.2 g/dl (6.4-8.2); URIC ACID 4.5 mg/dL (2.6-7.2)
[2020-06-16] MEDS: ONDANSETRON INJECTION 8 MG in SODIUM CHLORIDE 50 ML IVPB SCH ×2 (07:27→14:52)
[2020-06-16 08:06] LABS: WHITE BLOOD COUNT 152.9 K/mm3 (4.0-10.0)
[2020-06-16] MEDS: METOPROLOL TARTRATE 50 MG TABLET (FP) PO SCH (09:33)
[2020-06-16] MEDS: ALLOPURINOL 300 MG TABLET (FP) PO SCH (09:33)
[2020-06-16] MEDS: FAMOTIDINE 10 MG TABLET PO SCH (09:33)
[2020-06-16] MEDS: HYDROXYUREA 500 MG CAPSULE PO SCH ×2 (09:33→21:27)
[2020-06-16] MEDS: LISINOPRIL 10 MG TABLET PO SCH (09:33)
[2020-06-16] MEDS: PANTOPRAZOLE 40 MG TABLET PO SCH (09:33)
[2020-06-16 10:05] LABS: ANISOCYTOSIS 0; MACROCYTOSIS 0; PLATELET ESTIMATE DECREASED
--- NOTE | 2020-06-16 10:06 | PN ---
Progress Note, Physician Chief Complaint: Events noted. Now on floor. History of Present Illness: 70M w/hx HTN, HLD, CML with recent development of AML p/w 4 days of worsening shortness of breath. He reports worsening orthopnea alongside bilateral lower extremity swelling for the last 4 days. He reports that he "always has a fast heart rate". He denies palpitations, dizziness or syncope. Exercise tolerance is very poor. He was awaiting chemo. ECG stach lad rbbb. TnI negative. CTA 06/14/20 no PE, bilat effusions R>L admitted to ICU due to risk of tumor lysis syndrome. Hydrea ordered, not given yet due to patient refusal. echo 06/15/20 normal EF. awaiting chemotherapy. - Current Medication List Current Medications: Active Medications Allopurinol (Zyloprim -) 300 mg PO DAILY [facility] Last Admin: 06/16/20 09:33 Dose: 300 mg Documented by: Artificial Tears (Artificial Tears) 1 drop OU DAILY [facility] Atorvastatin Calcium (Lipitor -) 20 mg PO HS [facility] Last Admin: 06/15/20 21:37 Dose: 20 mg Documented by: Famotidine (Acid Active Directory Engineer) 10 mg PO DAILY [facility] Last Admin: 06/16/20 09:33 Dose: 10 mg Documented by: Hydroxyurea (Hydrea -) 1,000 mg PO BID [facility] Last Admin: 06/16/20 09:33 Dose: 1,000 mg Documented by: Sodium Chloride (Normal Saline -) 1,000 mls @ 50 mls/hr IV ASDIR [facility] Stop: 06/16/20 13:59 Last Admin: 06/15/20 14:43 Dose: 50 mls/hr Documented by: Sodium Chloride (Normal Saline -) 1,000 mls @ 50 mls/hr IV ASDIR [facility] Stop: 06/17/20 13:59 Decitabine 41 mg/ Sodium (Chloride) 108.2 mls @ 108.2 mls/hr IV ONCE ONE Stop: 06/16/20 15:29 Ondansetron HCl 8 mg/ Sodium (Chloride) 54 mls @ 216 mls/hr IVPB Q12H [facility] Stop: 06/17/20 02:14 Lisinopril (Prinivil) 10 mg PO DAILY [facility] Last Admin: 06/16/20 09:33 Dose: 10 mg Documented by: Metoprolol Tartrate (Lopressor -) 50 mg PO DAILY [facility] Last Admin: 06/16/20 09:33 Dose: 50 mg Documented by: Pantoprazole Sodium (Protonix -) 40 mg PO DAILY [facility] Last Admin: 06/16/20 09:33 Dose: 40 mg Documented by: Trazodone HCl (Desyrel -) 100 mg PO HS [facility] Last Admin: 06/15/20 21:37 Dose: 100 mg Documented by: - Objective Vital Signs: Vital Signs Temperature 98.2 F 06/16/20 05:59 Pulse Rate 121 H 06/16/20 08:21 Respiratory Rate 22 H 06/16/20 05:59 Blood Pressure 118/72 06/16/20 05:59 O2 Sat by Pulse Oximetry (%) 97 06/16/20 08:21 Constitutional: Yes: No Distress, Calm Eyes: Yes: EOM Intact HENT: Yes: Normocephalic Neck: Yes: Trachea Midline Cardiovascular: Yes: Regular Rate and Rhythm, Tachycardia Respiratory: Yes: CTA Bilaterally Gastrointestinal: Yes: Normal Bowel Sounds, Soft Musculoskeletal: Yes: Muscle Weakness Edema: No Labs: CBC, BMP 06/16/20 05:49 06/16/20 05:49 INR, PTT INR 1.31 (0.83-1.09) H 06/14/20 19:20 Fibrinogen > 500.0 mg/dL (238-498) H 06/14/20 19:20 Assessment/Plan 70M w/hx HTN, HLD, CML with recent development of AML p/w 4 days of worsening shortness of breath. He reports worsening orthopnea alongside bilateral lower extremity swelling for the last 4 days. He reports that he "always has a fast heart rate". He denies palpitations, dizziness or syncope. Exercise tolerance is very poor. He was awaiting chemo. ECG stach lad rbbb. TnI negative. CTA 06/14/20 no PE, bilat effusions R>L admitted to ICU due to risk of tumor lysis syndrome. Hydrea ordered, not given yet due to patient refusal. echo 06/15/20 normal EF. awaiting chemotherapy. IMP: -sinus tachycardia due to AML, severe anemia. -no evidence of ACS -no evidence of PE -echo 06/15/20 normal EF. -will follow with you.
--- NOTE | 2020-06-16 10:30 | PN ---
Progress Note, Physician - Current Medication List Current Medications: Active Medications Allopurinol (Zyloprim -) 300 mg PO DAILY [facility] Last Admin: 06/16/20 09:33 Dose: 300 mg Documented by: Artificial Tears (Artificial Tears) 1 drop OU DAILY [facility] Atorvastatin Calcium (Lipitor -) 20 mg PO HS [facility] Last Admin: 06/15/20 21:37 Dose: 20 mg Documented by: Famotidine (Acid Waste Elimination) 10 mg PO DAILY [facility] Last Admin: 06/16/20 09:33 Dose: 10 mg Documented by: Hydroxyurea (Hydrea -) 1,000 mg PO BID [facility] Last Admin: 06/16/20 09:33 Dose: 1,000 mg Documented by: Sodium Chloride (Normal Saline -) 1,000 mls @ 50 mls/hr IV ASDIR [facility] Stop: 06/16/20 13:59 Last Admin: 06/15/20 14:43 Dose: 50 mls/hr Documented by: Sodium Chloride (Normal Saline -) 1,000 mls @ 50 mls/hr IV ASDIR [facility] Stop: 06/17/20 13:59 Decitabine 41 mg/ Sodium (Chloride) 108.2 mls @ 108.2 mls/hr IV ONCE ONE Stop: 06/16/20 15:29 Ondansetron HCl 8 mg/ Sodium (Chloride) 54 mls @ 216 mls/hr IVPB Q12H [facility] Stop: 06/17/20 02:14 Lisinopril (Prinivil) 10 mg PO DAILY [facility] Last Admin: 06/16/20 09:33 Dose: 10 mg Documented by: Metoprolol Tartrate (Lopressor -) 50 mg PO DAILY [facility] Last Admin: 06/16/20 09:33 Dose: 50 mg Documented by: Pantoprazole Sodium (Protonix -) 40 mg PO DAILY [facility] Last Admin: 06/16/20 09:33 Dose: 40 mg Documented by: Trazodone HCl (Desyrel -) 100 mg PO [facility] Last Admin: 06/15/20 21:37 Dose: 100 mg Documented by: - Objective Vital Signs: Vital Signs Temperature 98.2 F 06/16/20 05:59 Pulse Rate 121 H 06/16/20 08:21 Respiratory Rate 22 H 06/16/20 05:59 Blood Pressure 118/72 06/16/20 05:59 O2 Sat by Pulse Oximetry (%) 97 06/16/20 08:21 Cardiovascular: Yes: S1, S2 Respiratory: Yes: Regular, CTA Bilaterally Gastrointestinal: Yes: Normal Bowel Sounds, Soft Labs: CBC, BMP 06/16/20 05:49 06/16/20 05:49 INR, PTT INR 1.31 (0.83-1.09) H 06/14/20 19:20 Fibrinogen > 500.0 mg/dL (238-498) H 06/14/20 19:20 Problem List - Problems (1) Symptomatic anemia Assessment/Plan: Appreciate Hematology consult PRBCs given in ED---further transfusion per hem Monitor CBC--06/20 Stool Occult- neg Code(s): D64.9 - ANEMIA, UNSPECIFIED (2) AML (acute myeloblastic leukemia) Assessment/Plan: Appreciate Oncology consult Patient reports chemotherapy scheduled for 06/14 WBC Laboratory Tests 06/14/20 06/14/20 06/15/20 07:35 20:30 06:25 WBC 198.2 H* 201.7 H* 204.2 H* Laboratory Tests 06/16/20 05:49 WBC 152.9 H* Monitor CBC Orders 06/14/20 11:45 Allopurinol [Zyloprim -] 300 mg PO DAILY Decitabine 41 mg Sodium Chloride [Normal Saline -] 100 ml IV ONCE 06/15/20 22:00 Hydroxyurea [Hydrea -] 1,000 mg PO BID Code(s): C92.00 - ACUTE MYELOBLASTIC LEUKEMIA, NOT HAVING ACHIEVED REMISSION (3) CHF (congestive heart failure) Assessment/Plan: Chest Xray-Increased congestion Lasix iv Strict I'Os Daily weight Monitor CBC, CMP O2 DC NS Code(s): I50.9 - HEART FAILURE, UNSPECIFIED (4) HTN (hypertension) Assessment/Plan: monitor on current meds Vital Signs Period Temp Pulse Resp BP Sys/Carrillo Pulse Ox Last 24 Hr 98 F-98.8 F 80-122 22-26 119-143/62-97 90-99 Code(s): I10 - ESSENTIAL (PRIMARY) HYPERTENSION
--- NOTE | 2020-06-16 12:20 | PN ---
Progress Note, Physician History of Present Illness: Pt seen and examined at bedside. He is awake and alert. He denies shortness of breath. - Current Medication List Current Medications: Active Medications Allopurinol (Zyloprim -) 300 mg PO DAILY [facility] Last Admin: 06/16/20 09:33 Dose: 300 mg Documented by: Artificial Tears (Artificial Tears) 1 drop OU DAILY [facility] Atorvastatin Calcium (Lipitor -) 20 mg PO HS [facility] Last Admin: 06/15/20 21:37 Dose: 20 mg Documented by: Famotidine (Acid Senior Control Systems Engineer) 10 mg PO DAILY [facility] Last Admin: 06/16/20 09:33 Dose: 10 mg Documented by: Hydroxyurea (Hydrea -) 1,000 mg PO BID [facility] Last Admin: 06/16/20 09:33 Dose: 1,000 mg Documented by: Sodium Chloride (Normal Saline -) 1,000 mls @ 50 mls/hr IV ASDIR [facility] Stop: 06/16/20 13:59 Last Admin: 06/15/20 14:43 Dose: 50 mls/hr Documented by: Sodium Chloride (Normal Saline -) 1,000 mls @ 50 mls/hr IV ASDIR [facility] Stop: 06/17/20 13:59 Decitabine 41 mg/ Sodium (Chloride) 108.2 mls @ 108.2 mls/hr IV ONCE ONE Stop: 06/16/20 15:29 Ondansetron HCl 8 mg/ Sodium (Chloride) 54 mls @ 216 mls/hr IVPB Q12H [facility] Stop: 06/17/20 02:14 Lisinopril (Prinivil) 10 mg PO DAILY [facility] Last Admin: 06/16/20 09:33 Dose: 10 mg Documented by: Metoprolol Tartrate (Lopressor -) 50 mg PO DAILY [facility] Last Admin: 06/16/20 09:33 Dose: 50 mg Documented by: Pantoprazole Sodium (Protonix -) 40 mg PO DAILY [facility] Last Admin: 06/16/20 09:33 Dose: 40 mg Documented by: Potassium Chloride (K-Dur -) 20 meq PO BID [facility] Stop: 06/16/20 22:01 Trazodone HCl (Desyrel -) 100 mg PO [facility] Last Admin: 06/15/20 21:37 Dose: 100 mg Documented by: - Objective Vital Signs: Vital Signs Temperature 98.6 F 06/16/20 09:00 Pulse Rate 122 H 06/16/20 09:00 Respiratory Rate 22 H 06/16/20 09:00 Blood Pressure 113/61 06/16/20 09:00 O2 Sat by Pulse Oximetry (%) 98 06/16/20 09:00 Constitutional: Yes: Calm Eyes: Yes: Conjunctiva Clear HENT: Yes: Atraumatic Cardiovascular: Yes: S1, S2 Respiratory: Yes: On Nasal O2 Gastrointestinal: Yes: Soft, Distention Genitourinary: Yes: WNL Musculoskeletal: Yes: WNL Edema: No Neurological: Yes: Oriented Psychiatric: Yes: Oriented Labs: CBC, BMP 06/16/20 05:49 06/16/20 05:49 INR, PTT INR 1.31 (0.83-1.09) H 06/14/20 19:20 Fibrinogen > 500.0 mg/dL (238-498) H 06/14/20 19:20 Assessment/Plan Current Medications Generic Name Dose Route Start Last Admin Trade Name Freq PRN Reason Stop Dose Admin Allopurinol 300 mg 06/16/20 10:00 06/16/20 09:33 Zyloprim - PO 300 mg DAILY ERMELINDA Administration Artificial Tears 1 drop 06/16/20 10:00 Artificial Tears OU DAILY ERMELINDA Atorvastatin Calcium 20 mg 06/15/20 22:00 06/15/20 21:37 Lipitor - PO 20 mg HS ERMELINDA Administration Famotidine 10 mg 06/16/20 10:00 06/16/20 09:33 Acid Senior Control Systems Engineer PO 10 mg DAILY ERMELINDA Administration Hydroxyurea 1,000 mg 06/16/20 10:00 06/16/20 09:33 Hydrea - PO 1,000 mg BID ERMELINDA Administration Sodium Chloride 1,000 mls @ 50 mls/hr 06/15/20 14:00 06/15/20 14:43 Normal Saline - IV 06/16/20 13:59 50 mls/hr ASDIR ERMELINDA Administration Sodium Chloride 1,000 mls @ 50 mls/hr 06/16/20 14:00 Normal Saline - IV 06/17/20 13:59 ASDIR ERMELINDA Decitabine 41 mg/ Sodium 108.2 mls @ 108.2 mls/hr 06/16/20 14:30 Chloride IV 06/16/20 15:29 ONCE ONE Ondansetron HCl 8 mg/ Sodium 54 mls @ 216 mls/hr 06/16/20 14:00 Chloride IVPB 06/17/20 02:14 Q12H ERMELINDA Lisinopril 10 mg 06/16/20 10:00 06/16/20 09:33 Prinivil PO 10 mg DAILY ERMELINDA Administration Metoprolol Tartrate 50 mg 06/15/20 18:30 06/16/20 09:33 Lopressor - PO 50 mg DAILY ERMELINDA Administration Pantoprazole Sodium 40 mg 06/16/20 10:00 06/16/20 09:33 Protonix - PO 40 mg DAILY ERMELINDA Administration Potassium Chloride 20 meq 06/16/20 11:30 K-Dur - PO 06/16/20 22:01 BID ERMELINDA Trazodone HCl 100 mg 06/15/20 22:00 06/15/20 21:37 Desyrel - PO 100 mg HS ERMELINDA Administration Laboratory Tests 06/16/20 05:49 Potassium 3.4 L Uric Acid 4.5 Phosphorus 5.6 H Magnesium 1.9 Impression 1. CKD 2. CML 3. AML 4. pleural effusions 5. htn Plan - replace potassium - cont to monitor lytes - urica acid improved - monitor for tumor lysis - check daily weights - lasix as needed - cont allopurinol
[2020-06-16] MEDS: SODIUM CHLORIDE 1,000 ML IV SCH ×2 (12:27→19:08)
[2020-06-16] MEDS ORDERED: SODIUM CHLORIDE IV ONE (14:30)
[2020-06-16] MEDS ORDERED: DECITABINE IV ONE (14:30)
[2020-06-16] MEDS: POTASSIUM CHLORIDE TABS 20 MEQ TABLET.ER (FP) PO SCH ×2 (14:52→21:27)
[2020-06-16] MEDS: ARTIFICIAL TEARS (POLYVINYL ALCOHOL) OPTH DROPS OU SCH (14:52)
--- NOTE | 2020-06-16 15:15 | PN ---
Progress Note (short form) - Note Progress Note: Tachypenic at rest. Refused to use NIPPV support overnight. Denies CP. For Chemotherapy. Still reports non-specific abdominal "tension" Intake & Output 06/13/20 06/14/20 06/15/20 06/16/20 23:59 23:59 23:59 23:59 Intake Total 1564 840 Output Total 800 1150 100 Balance -800 414 740 Weight 182 lb 181 lb 7.047 oz 181 lb 181 lb Last Vital Signs Temp Pulse Resp BP Pulse Ox 97.8 F 104 H 22 H 113/64 99 06/16/20 14:00 06/16/20 14:00 06/16/20 09:00 06/16/20 14:00 06/16/20 14:00 Active Medications Acetaminophen (Ofirmev Injection -) 1,000 mg IVPB Q8H PRN PRN Reason: PAIN LEVEL 4 - 6 Stop: 06/17/20 13:35 Allopurinol (Zyloprim -) 300 mg PO DAILY [facility] Last Admin: 06/16/20 09:33 Dose: 300 mg Documented by: Artificial Tears (Artificial Tears) 1 drop OU DAILY [facility] Last Admin: 06/16/20 14:52 Dose: 1 drp Documented by: Atorvastatin Calcium (Lipitor -) 20 mg PO HS [facility] Last Admin: 06/15/20 21:37 Dose: 20 mg Documented by: Famotidine (Acid Lookback Coordinator) 10 mg PO DAILY [facility] Last Admin: 06/16/20 09:33 Dose: 10 mg Documented by: Hydroxyurea (Hydrea -) 1,000 mg PO BID [facility] Last Admin: 06/16/20 09:33 Dose: 1,000 mg Documented by: Sodium Chloride (Normal Saline -) 1,000 mls @ 50 mls/hr IV ASDIR [facility] Stop: 06/17/20 13:59 Last Admin: 06/16/20 12:27 Dose: 50 mls/hr Documented by: Decitabine 41 mg/ Sodium (Chloride) 108.2 mls @ 108.2 mls/hr IV ONCE ONE Stop: 06/16/20 15:29 Ondansetron HCl 8 mg/ Sodium (Chloride) 54 mls @ 216 mls/hr IVPB Q12H [facility] Stop: 06/17/20 02:14 Last Admin: 06/16/20 14:52 Dose: 216 mls/hr Documented by: Lisinopril (Prinivil) 10 mg PO DAILY [facility] Last Admin: 06/16/20 09:33 Dose: 10 mg Documented by: Metoprolol Tartrate (Lopressor -) 50 mg PO DAILY [facility] Last Admin: 06/16/20 09:33 Dose: 50 mg Documented by: Pantoprazole Sodium (Protonix -) 40 mg PO DAILY [facility] Last Admin: 06/16/20 09:33 Dose: 40 mg Documented by: Potassium Chloride (K-Dur -) 20 meq PO BID [facility] Stop: 06/16/20 22:01 Last Admin: 06/16/20 14:52 Dose: 20 meq Documented by: Trazodone HCl (Desyrel -) 100 mg PO HS [facility] Last Admin: 06/15/20 21:37 Dose: 100 mg Documented by: GENERAL: Awake, alert, and fully oriented, dyspneic at rest HEAD: Normal with no signs of trauma. EYES: Pupils equal, round and reactive to light, extraocular movements intact LUNGS: Breath sounds equal, decreased at bases, (+) Mild accessory muscle use. HEART: Regular rate and rhythm, normal S1 and S2 ABDOMEN: Softly distended, mild non-specific tenderness, (+) BS, no guarding, no rebound, MUSCULOSKELETAL: No CVA tenderness. UPPER EXTREMITIES: 2+ pulses, warm, multiple ecchymosis of different stages LOWER EXTREMITIES: 2+ pulses, warm, well-perfused. No calf tenderness.2+ pitting edema NEUROLOGICAL: Non-focal Laboratory Results - last 24 hr 06/15/20 06/16/20 06/16/20 06:25 05:49 05:49 WBC 152.9 H* Corrected WBC (auto) RBC 2.87 L Hgb 7.3 L Hct 23.9 L MCV 83.1 MCH 25.3 L MCHC 30.4 L RDW 19.1 H Plt Count 94 L MPV 9.7 Neutrophils % No Result Required. Neutrophils % (Manual) 52.0 D 58.8 Band Neutrophils % 0.7 0.0 Lymphocytes % No Result Required. Lymphocytes % (Manual) 20.0 D 1.9 L D Monocytes % (Manual) 0 L D 13 H D Eosinophils % (Manual) 0.6 D 0.0 D Basophils % (Manual) 0.7 1.0 Myelocytes % (Man) 0 D 1 D Promyelocytes % (Man) 0 D 2 D Blast Cells % (Manual) 25 H 20 H Nucleated RBC % 7 H 3 H Metamyelocytes 0 D 1 D Hypochromia 0 Platelet Estimate Decreased Decreased Polychromasia 0 Poikilocytosis 0 Basophilic Stippling 1+ Anisocytosis 0 Microcytosis 0 Macrocytosis 0 Sodium 135 L Potassium 3.4 L Chloride 100 Carbon Dioxide 23 Anion Gap 12 BUN 31.8 H Creatinine 1.6 H Est GFR (CKD-EPI)AfAm 49.50 Est GFR (CKD-EPI)NonAf 42.71 Random Glucose 108 H Uric Acid 4.5 Calcium 8.4 L Phosphorus 5.6 H Magnesium 1.9 Total Bilirubin 0.5 AST 40 H ALT 10 L Alkaline Phosphatase 220 H LD Total 341 H Total Protein 6.2 L Albumin 2.2 L ASSESSMENT/PLAN: Tumor Lysis due to AML Do not suspect PNA Pleural effusion likely related to AML HTN Gout HLD CKD History of CML Supplemental O2 as needed VTE prophylaxis Decitabine per Oncology Monitor off ABX Allopurinol Should have further GOC conversations Dr Wharton
--- NOTE | 2020-06-16 15:54 | PN ---
Physical Exam: SUBJECTIVE: Patient seen and examined. Patient was offered bipap for WOB, but refused to use it overnight. OBJECTIVE: Vital Signs Temperature 97.8 F 06/16/20 14:00 Pulse Rate 104 H 06/16/20 14:00 Respiratory Rate 22 H 06/16/20 09:00 Blood Pressure 113/64 06/16/20 14:00 O2 Sat by Pulse Oximetry (%) 99 06/16/20 14:00 GENERAL: Awake, alert, and fully oriented, on 3L NC NECK: Normal range of motion, supple LUNGS: Decreased breath sounds on bilateral bases HEART: Tachycardic, normal S1 and S2 ABDOMEN: Soft, protruberant, NABS, MUSCULOSKELETAL: Normal range of motion at all joints. LOWER EXTREMITIES: 2+ pulses, warm, well-perfused. NEUROLOGICAL: Cranial nerves II-XII intact. Normal speech. PSYCHIATRIC: Cooperative. Good eye contact. SKIN: Warm, dry, normal turgor Laboratory Results - last 24 hr 06/15/20 06/16/20 06/16/20 06:25 05:49 05:49 WBC 152.9 H* Corrected WBC (auto) RBC 2.87 L Hgb 7.3 L Hct 23.9 L MCV 83.1 MCH 25.3 L MCHC 30.4 L RDW 19.1 H Plt Count 94 L MPV 9.7 Neutrophils % No Result Required. Neutrophils % (Manual) 52.0 D 58.8 Band Neutrophils % 0.7 0.0 Lymphocytes % No Result Required. Lymphocytes % (Manual) 20.0 D 1.9 L D Monocytes % (Manual) 0 L D 13 H D Eosinophils % (Manual) 0.6 D 0.0 D Basophils % (Manual) 0.7 1.0 Myelocytes % (Man) 0 D 1 D Promyelocytes % (Man) 0 D 2 D Blast Cells % (Manual) 25 H 20 H Nucleated RBC % 7 H 3 H Metamyelocytes 0 D 1 D Hypochromia 0 Platelet Estimate Decreased Decreased Polychromasia 0 Poikilocytosis 0 Basophilic Stippling 1+ Anisocytosis 0 Microcytosis 0 Macrocytosis 0 Sodium 135 L Potassium 3.4 L Chloride 100 Carbon Dioxide 23 Anion Gap 12 BUN 31.8 H Creatinine 1.6 H Est GFR (CKD-EPI)AfAm 49.50 Est GFR (CKD-EPI)NonAf 42.71 Random Glucose 108 H Uric Acid 4.5 Calcium 8.4 L Phosphorus 5.6 H Magnesium 1.9 Total Bilirubin 0.5 AST 40 H ALT 10 L Alkaline Phosphatase 220 H LD Total 341 H Total Protein 6.2 L Albumin 2.2 L Active Medications Generic Name Dose Route Start Last Admin Trade Name Freq PRN Reason Stop Dose Admin Acetaminophen 1,000 mg 06/16/20 13:35 Ofirmev Injection - IVPB 06/17/20 13:35 Q8H PRN PAIN LEVEL 4 - 6 Allopurinol 300 mg 06/16/20 10:00 06/16/20 09:33 Zyloprim - PO 300 mg DAILY ERMELINDA Administration Artificial Tears 1 drop 06/16/20 10:00 06/16/20 14:52 Artificial Tears OU 1 drp DAILY ERMELINDA Administration Atorvastatin Calcium 20 mg 06/15/20 22:00 06/15/20 21:37 Lipitor - PO 20 mg HS ERMELINDA Administration Famotidine 10 mg 06/16/20 10:00 06/16/20 09:33 Acid Outbound Call Center Representative PO 10 mg DAILY ERMELINDA Administration Hydroxyurea 1,000 mg 06/16/20 10:00 06/16/20 09:33 Hydrea - PO 1,000 mg BID ERMELINDA Administration Sodium Chloride 1,000 mls @ 50 mls/hr 06/16/20 14:00 06/16/20 12:27 Normal Saline - IV 06/17/20 13:59 50 mls/hr ASDIR ERMELINDA Administration Ondansetron HCl 8 mg/ Sodium 54 mls @ 216 mls/hr 06/16/20 14:00 06/16/20 14:52 Chloride IVPB 06/17/20 02:14 216 mls/hr Q12H ERMELINDA Administration Lisinopril 10 mg 06/16/20 10:00 06/16/20 09:33 Prinivil PO 10 mg DAILY ERMELINDA Administration Metoprolol Tartrate 50 mg 06/15/20 18:30 06/16/20 09:33 Lopressor - PO 50 mg DAILY ERMELINDA Administration Pantoprazole Sodium 40 mg 06/16/20 10:00 06/16/20 09:33 Protonix - PO 40 mg DAILY ERMELINDA Administration Potassium Chloride 20 meq 06/16/20 11:30 06/16/20 14:52 K-Dur - PO 06/16/20 22:01 20 meq BID ERMELINDA Administration Trazodone HCl 100 mg 06/15/20 22:00 06/15/20 21:37 Desyrel - PO 100 mg HS ERMELINDA Administration ASSESSMENT/PLAN: Patient is a 70 year old male with past medical history of HTN, HLD, CKD, 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 We have been consulted for further evaluation of CMML. #CMML with blast crisis, high risk for tumor lysis -Chest CTA : no evidence of PE, bilateral pleural efuusions, R>L, extensive LAD involving the mediastinal, bilateral hilar, bilateral axillary and upper abdom inal LN chains. Splenomegaly. -WBC 198k, [place] [id number] on admission -s/p chemo x1 yesterday, leukocytosis trending down -Rasburicase 6mg x1, then Hydrea 1000mg bid started 06/14 -G6PD level pending -for D2 Decitabine today -Allopurinol dose to 300mg daily, monitor renal function -gentle IVF hydration to offset TLS -monitor CBC, CMP, LDH, uric acid daily -r/o sepsis - blood cx, urine cx -pulm consulted. recs appreciated. -cardio consulted. recs appreciated. -ID consulted. recs appreciated. -nephro consulted. recs appreciated. Visit type - Emergency Visit Emergency Visit: Yes ED Registration Date: 06/14/20 Care time: The patient presented to the Emergency Department on the above date and was hospitalized for further evaluation of their emergent condition. - New Patient This patient is new to me today: No - Critical Care Critical Care patient: No - Medication Review Med list reviewed for High Risk Meds patients 65 and older: Yes ATTENDING PHYSICIAN STATEMENT I saw and evaluated the patient. I reviewed the resident's note and discussed the case with the resident. I agree with the resident's findings and plan as documented. SUBJECTIVE: OBJECTIVE: ASSESSMENT AND PLAN:
--- NOTE | 2020-06-16 20:31 | PN.HO ---
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 WBC 198,000. 30% blasts CTA -- b/l pleural effusions Cr 1.6 LDH -430s Uric acid 9.7 --- down to 4 and then 4.5 after rasburicase. Continue to monitor severely anemic on admission --6.2 --- received PRBCs s/p rasburicase 6mg IVSS x 1 dose f/u G-6 PD continue hydrea Monitor for tumor lysis gentle hydration f/u renal/cardio recs regarding diuresis will request ID inut about rt. forearm ? superficial thrombophlebitis will request PICC line
[2020-06-16] MEDS ORDERED: ZOLPIDEM TARTRATE 5 MG TABLET PO PRN (20:33)
[2020-06-16] MEDS: ATORVASTATIN CA 20 MG TABLET (FP) PO SCH (21:26)
[2020-06-16] MEDS: ACETAMINOPHEN 1000 MG/100 ML VIAL (NON FORMULARY) IVPB PRN (21:28)
[2020-06-17] MEDS: ONDANSETRON INJECTION 8 MG in SODIUM CHLORIDE 50 ML IVPB SCH ×2 (01:07→16:13)
[2020-06-17] MEDS: ALPRAZolam 0.25 MG TABLET PO PRN ×2 (02:19→10:32)
[2020-06-17] MEDS: ACETAMINOPHEN 1000 MG/100 ML VIAL (NON FORMULARY) IVPB PRN (05:29)
--- NOTE | 2020-06-17 07:59 | PN ---
Progress Note, Physician - Current Medication List Current Medications: Active Medications Acetaminophen (Ofirmev Injection -) 1,000 mg IVPB Q8H PRN PRN Reason: PAIN LEVEL 4 - 6 Stop: 06/17/20 13:35 Last Admin: 06/17/20 05:29 Dose: 1,000 mg Documented by: Allopurinol (Zyloprim -) 300 mg PO DAILY [facility] Last Admin: 06/16/20 09:33 Dose: 300 mg Documented by: Alprazolam (Xanax -) 0.25 mg PO Q12H PRN PRN Reason: ANXIETY Last Admin: 06/17/20 02:19 Dose: 0.25 mg Documented by: Artificial Tears (Artificial Tears) 1 drop OU DAILY [facility] Last Admin: 06/16/20 14:52 Dose: 1 drp Documented by: Atorvastatin Calcium (Lipitor -) 20 mg PO HS [facility] Last Admin: 06/16/20 21:26 Dose: 20 mg Documented by: Famotidine (Acid Photographic Specialist) 10 mg PO DAILY [facility] Last Admin: 06/16/20 09:33 Dose: 10 mg Documented by: Hydroxyurea (Hydrea -) 1,000 mg PO BID [facility] Last Admin: 06/16/20 21:27 Dose: 1,000 mg Documented by: Sodium Chloride (Normal Saline -) 1,000 mls @ 50 mls/hr IV ASDIR [facility] Stop: 06/17/20 13:59 Last Admin: 06/16/20 19:08 Dose: Not Given Documented by: Lisinopril (Prinivil) 10 mg PO DAILY [facility] Last Admin: 06/16/20 09:33 Dose: 10 mg Documented by: Metoprolol Tartrate (Lopressor -) 50 mg PO DAILY [facility] Last Admin: 06/16/20 09:33 Dose: 50 mg Documented by: Pantoprazole Sodium (Protonix -) 40 mg PO DAILY [facility] Last Admin: 06/16/20 09:33 Dose: 40 mg Documented by: Zolpidem Tartrate (Ambien -) 5 mg PO HS PRN PRN Reason: INSOMNIA Last Admin: 06/16/20 21:26 Dose: 5 mg Documented by: - Objective Vital Signs: Vital Signs Temperature 97.6 F 06/17/20 06:00 Pulse Rate 121 H 06/17/20 06:00 Respiratory Rate 22 H 08/20/20 06:00 Blood Pressure 122/63 08/20/20 06:00 O2 Sat by Pulse Oximetry (%) 96 06/17/20 06:00 Cardiovascular: Yes: S1, S2 Respiratory: Yes: Regular, CTA Bilaterally Gastrointestinal: Yes: Normal Bowel Sounds, Soft Labs: CBC, BMP 06/16/20 05:49 06/16/20 05:49 INR, PTT INR 1.31 (0.83-1.09) H 06/14/20 19:20 Fibrinogen > 500.0 mg/dL (238-498) H 06/14/20 19:20 Problem List - Problems (1) Symptomatic anemia Assessment/Plan: Appreciate Hematology consult PRBCs given in ED---further transfusion per hem Monitor CBC--06/20 Stool Occult- neg Code(s): D64.9 - ANEMIA, UNSPECIFIED (2) AML (acute myeloblastic leukemia) Assessment/Plan: Appreciate Oncology consult Patient reports chemotherapy scheduled for 06/14 WBC Laboratory Tests 06/14/20 06/14/20 06/15/20 07:35 20:30 06:25 WBC 198.2 H* 201.7 H* 204.2 H* Laboratory Tests 06/16/20 05:49 WBC 152.9 H* Monitor CBC Orders 06/14/20 11:45 Allopurinol [Zyloprim -] 300 mg PO DAILY Decitabine 41 mg Sodium Chloride [Normal Saline -] 100 ml IV ONCE 06/15/20 22:00 Hydroxyurea [Hydrea -] 1,000 mg PO BID Code(s): C92.00 - ACUTE MYELOBLASTIC LEUKEMIA, NOT HAVING ACHIEVED REMISSION (3) CHF (congestive heart failure) Assessment/Plan: off diuretics Strict I'Os Daily weight Monitor CBC, CMP O2 DC NS Code(s): I50.9 - HEART FAILURE, UNSPECIFIED (4) HTN (hypertension) Assessment/Plan: monitor on current meds Vital Signs Period Temp Pulse Resp BP Sys/Carrillo Pulse Ox Last 24 Hr 98 F-98.8 F 80-122 22-26 119-143/62-97 90-99 Code(s): I10 - ESSENTIAL (PRIMARY) HYPERTENSION
[2020-06-17] MEDS: PANTOPRAZOLE 40 MG TABLET PO SCH (10:29)
[2020-06-17] MEDS: HYDROXYUREA 500 MG CAPSULE PO SCH ×2 (10:29→21:30)
[2020-06-17] MEDS: METOPROLOL TARTRATE 50 MG TABLET (FP) PO SCH (10:29)
[2020-06-17] MEDS: ALLOPURINOL 300 MG TABLET (FP) PO SCH (10:29)
[2020-06-17] MEDS: ARTIFICIAL TEARS (POLYVINYL ALCOHOL) OPTH DROPS OU SCH (10:30)
[2020-06-17] MEDS: LISINOPRIL 10 MG TABLET PO SCH (10:30)
[2020-06-17] MEDS: FAMOTIDINE 10 MG TABLET PO SCH (10:30)
--- NOTE | 2020-06-17 10:52 | PN ---
Progress Note, Physician Chief Complaint: feels weak, mild sob History of Present Illness: 70M w/hx HTN, HLD, CML with recent development of AML p/w 4 days of worsening shortness of breath. He reports worsening orthopnea alongside bilateral lower extremity swelling for the last 4 days. He reports that he "always has a fast heart rate". He denies palpitations, dizziness or syncope. Exercise tolerance is very poor. He was awaiting chemo. ECG stach lad rbbb. TnI negative. CTA 06/14/20 no PE, bilat effusions R>L admitted to ICU due to risk of tumor lysis syndrome. Hydrea ordered, not given yet due to patient refusal. echo 06/15/20 normal EF. receiving chemotherapy. - Current Medication List Current Medications: Active Medications Acetaminophen (Ofirmev Injection -) 1,000 mg IVPB Q8H PRN PRN Reason: PAIN LEVEL 4 - 6 Stop: 06/17/20 13:35 Last Admin: 06/17/20 05:29 Dose: 1,000 mg Documented by: Allopurinol (Zyloprim -) 300 mg PO DAILY [facility] Last Admin: 06/17/20 10:29 Dose: 300 mg Documented by: Alprazolam (Xanax -) 0.25 mg PO Q12H PRN PRN Reason: ANXIETY Last Admin: 06/17/20 10:32 Dose: 0.25 mg Documented by: Artificial Tears (Artificial Tears) 1 drop OU DAILY [facility] Last Admin: 06/17/20 10:30 Dose: 1 drp Documented by: Atorvastatin Calcium (Lipitor -) 20 mg PO HS [facility] Last Admin: 06/16/20 21:26 Dose: 20 mg Documented by: Famotidine (Acid Bias Machine Operator) 10 mg PO DAILY [facility] Last Admin: 06/17/20 10:30 Dose: 10 mg Documented by: Hydroxyurea (Hydrea -) 1,000 mg PO BID [facility] Last Admin: 06/17/20 10:29 Dose: 1,000 mg Documented by: Sodium Chloride (Normal Saline -) 1,000 mls @ 50 mls/hr IV ASDIR [facility] Stop: 06/17/20 13:59 Last Admin: 06/16/20 19:08 Dose: Not Given Documented by: Sodium Chloride (Normal Saline -) 1,000 mls @ 50 mls/hr IV ASDIR [facility] Stop: 06/18/20 14:59 Decitabine 41 mg/ Sodium (Chloride) 108.2 mls @ 108.2 mls/hr IV ONCE ONE Stop: 06/17/20 16:29 Ondansetron HCl 8 mg/ Sodium (Chloride) 54 mls @ 216 mls/hr IVPB Q12H [facility] Stop: 06/18/20 03:14 Lisinopril (Prinivil) 10 mg PO DAILY [facility] Last Admin: 06/17/20 10:30 Dose: 10 mg Documented by: Metoprolol Tartrate (Lopressor -) 50 mg PO DAILY [facility] Last Admin: 06/17/20 10:29 Dose: 50 mg Documented by: Pantoprazole Sodium (Protonix -) 40 mg PO DAILY [facility] Last Admin: 06/17/20 10:29 Dose: 40 mg Documented by: Zolpidem Tartrate (Ambien -) 5 mg PO HS PRN PRN Reason: INSOMNIA Last Admin: 06/16/20 21:26 Dose: 5 mg Documented by: - Objective Vital Signs: Vital Signs Temperature 97.8 F 06/17/20 10:35 Pulse Rate 113 H 06/17/20 10:35 Respiratory Rate 22 H 06/17/20 10:35 Blood Pressure 112/62 06/17/20 10:35 O2 Sat by Pulse Oximetry (%) 99 06/17/20 10:35 Constitutional: Yes: No Distress, Calm Eyes: Yes: EOM Intact HENT: Yes: Normocephalic Neck: Yes: Trachea Midline Cardiovascular: Yes: Regular Rate and Rhythm, Tachycardia Respiratory: Yes: CTA Bilaterally Gastrointestinal: Yes: Normal Bowel Sounds, Soft Musculoskeletal: Yes: WNL Extremities: Yes: WNL Edema: No Labs: CBC, BMP 06/16/20 05:49 06/16/20 05:49 INR, PTT INR 1.31 (0.83-1.09) H 06/14/20 19:20 Fibrinogen > 500.0 mg/dL (238-498) H 06/14/20 19:20 Assessment/Plan 70M w/hx HTN, HLD, CML with recent development of AML p/w 4 days of worsening shortness of breath. He reports worsening orthopnea alongside bilateral lower extremity swelling for the last 4 days. He reports that he "always has a fast heart rate". He denies palpitations, dizziness or syncope. Exercise tolerance is very poor. He was awaiting chemo. ECG stach lad rbbb. TnI negative. CTA 06/14/20 no PE, bilat effusions R>L admitted to ICU due to risk of tumor lysis syndrome. Hydrea ordered, not given yet due to patient refusal. echo 06/15/20 normal EF. awaiting chemotherapy. IMP: -sinus tachycardia due to AML, severe anemia. -no evidence of ACS -no evidence of PE -echo 06/15/20 normal EF. -will follow with you.
[2020-06-17] MEDS ORDERED: ALPRAZolam 0.25 MG TABLET PO PRN (13:35)
--- NOTE | 2020-06-17 14:42 | PN ---
Progress Note (short form) - Note Progress Note: Tachypenic at rest. Did not use NIPPV support overnight. Denies CP. Still reports non-specific abdominal "tension" Intake & Output 06/14/20 06/15/20 06/16/20 06/17/20 23:59 23:59 23:59 23:59 Intake Total 1564 1456 Output Total 800 1150 100 100 Balance -225 891 0461 -100 Weight 181 lb 7.047 oz 181 lb 181 lb 184 lb 12.8 oz Last Vital Signs Temp Pulse Resp BP Pulse Ox 97.4 F L 102 H 20 114/65 99 06/17/20 14:12 06/17/20 14:12 06/17/20 14:12 06/17/20 14:12 06/17/20 10:35 Active Medications Allopurinol (Zyloprim -) 300 mg PO DAILY [facility] Last Admin: 06/17/20 10:29 Dose: 300 mg Documented by: Alprazolam (Xanax -) 0.25 mg PO Q12H PRN PRN Reason: ANXIETY Artificial Tears (Artificial Tears) 1 drop OU DAILY [facility] Last Admin: 06/17/20 10:30 Dose: 1 drp Documented by: Atorvastatin Calcium (Lipitor -) 20 mg PO HS [facility] Last Admin: 06/16/20 21:26 Dose: 20 mg Documented by: Famotidine (Acid Hockey Scout) 10 mg PO DAILY [facility] Last Admin: 06/17/20 10:30 Dose: 10 mg Documented by: Hydroxyurea (Hydrea -) 1,000 mg PO BID [facility] Last Admin: 06/17/20 10:29 Dose: 1,000 mg Documented by: Sodium Chloride (Normal Saline -) 1,000 mls @ 50 mls/hr IV ASDIR [facility] Stop: 06/18/20 14:59 Decitabine 41 mg/ Sodium (Chloride) 108.2 mls @ 108.2 mls/hr IV ONCE ONE Stop: 06/17/20 16:29 Ondansetron HCl 8 mg/ Sodium (Chloride) 54 mls @ 216 mls/hr IVPB Q12H [facility] Stop: 06/18/20 03:14 Lisinopril (Prinivil) 10 mg PO DAILY [facility] Last Admin: 06/17/20 10:30 Dose: 10 mg Documented by: Metoprolol Tartrate (Lopressor -) 50 mg PO DAILY [facility] Last Admin: 06/17/20 10:29 Dose: 50 mg Documented by: Pantoprazole Sodium (Protonix -) 40 mg PO DAILY [facility] Last Admin: 06/17/20 10:29 Dose: 40 mg Documented by: Zolpidem Tartrate (Ambien -) 5 mg PO HS PRN PRN Reason: INSOMNIA Last Admin: 06/16/20 21:26 Dose: 5 mg Documented by: GENERAL: Awake, alert, and fully oriented, dyspneic at rest HEAD: Normal with no signs of trauma. EYES: Pupils equal, round and reactive to light, extraocular movements intact LUNGS: Breath sounds equal, decreased at bases, (+) Mild accessory muscle use. HEART: Regular rate and rhythm, normal S1 and S2 ABDOMEN: Softly distended, mild non-specific tenderness, (+) BS, no guarding, no rebound, MUSCULOSKELETAL: No CVA tenderness. UPPER EXTREMITIES: 2+ pulses, warm, multiple ecchymosis of different stages LOWER EXTREMITIES: 2+ pulses, warm, well-perfused. No calf tenderness.2+ pitting edema NEUROLOGICAL: Non-focal Laboratory Results - last 24 hr 06/13/20 06/14/20 21:00 19:20 G6PD RBC Count 3.17 L Nxx-3-Lanyod Res Detail 933 H Blood Type O POSITIVE Antibody Screen Negative Crossmatch See Detail ASSESSMENT/PLAN: Tumor Lysis due to AML Do not suspect PNA Pleural effusion likely related to AML HTN Gout HLD CKD History of CML Supplemental O2 as needed VTE prophylaxis Decitabine per Oncology Monitor off ABX Allopurinol Should have further GOC conversations : DW patient about advanced directives : He will consider : For now he wants intubation Dr Wharton
[2020-06-17] MEDS ORDERED: PROCHLORPERAZINE INJECTION 10 MG/2 ML VIAL IVPB ONE (15:00)
[2020-06-17 15:04] LABS: BASO % 2.3 % (0-2.0); EOS % 0.1 % (0-4.5); HEMATOCRIT 24.6 % (35.4-49); HEMOGLOBIN 7.2 GM/dL (11.7-16.9); LYMPH % 8.9 % (8-40); MCH 24.6 pg (25.7-33.7); MCHC 29.3 g/dl (32.0-35.9); MEAN CELL VOLUME 84.2 fl (80-96); MEAN PLT VOLUME 10.4 fl (7.5-11.1); NEUT % 85.7 % (42.8-82.8); PLATELET COUNT 101 K/MM3 (134-434); RBC 2.92 M/mm3 (4.00-5.60); RDW 19.5 % (11.9-15.9)
[2020-06-17 15:09] LABS: WHITE BLOOD COUNT 119.4 K/mm3 (4.0-10.0)
--- NOTE | 2020-06-17 15:12 | CON.PSY ---
Psychiatry Consult Chief Complaint: 70 Year old Male with a History of Many chronic medical conditions , Sleep apnea . seen for Psych evaluation. Case discussed withkori patel and his fiance.. Patient reports severe insomnia.. I have not slept in 7 days.. Has tachypnea. Symptoms: reports: Anxiety - Previous Psychiatric Treatment Outpatient: None Inpatient: None - Previous Substance Abuse Treatment Outpatient: None Inpatient: None - Current Medications Current Medications: Active Medications Allopurinol (Zyloprim -) 300 mg PO DAILY [facility] Last Admin: 06/17/20 10:29 Dose: 300 mg Documented by: Artificial Tears (Artificial Tears) 1 drop OU DAILY [facility] Last Admin: 06/17/20 10:30 Dose: 1 drp Documented by: Atorvastatin Calcium (Lipitor -) 20 mg PO HS [facility] Last Admin: 06/16/20 21:26 Dose: 20 mg Documented by: Famotidine (Acid Senior Business Broker) 10 mg PO DAILY [facility] Last Admin: 06/17/20 10:30 Dose: 10 mg Documented by: Hydroxyurea (Hydrea -) 1,000 mg PO BID [facility] Last Admin: 06/17/20 10:29 Dose: 1,000 mg Documented by: Sodium Chloride (Normal Saline -) 1,000 mls @ 50 mls/hr IV ASDIR [facility] Stop: 06/18/20 14:59 Decitabine 41 mg/ Sodium (Chloride) 108.2 mls @ 108.2 mls/hr IV ONCE ONE Stop: 06/17/20 16:29 Ondansetron HCl 8 mg/ Sodium (Chloride) 54 mls @ 216 mls/hr IVPB Q12H [facility] Stop: 06/18/20 03:14 Lisinopril (Prinivil) 10 mg PO DAILY [facility] Last Admin: 06/17/20 10:30 Dose: 10 mg Documented by: Metoprolol Tartrate (Lopressor -) 50 mg PO DAILY [facility] Last Admin: 06/17/20 10:29 Dose: 50 mg Documented by: Mirtazapine (Remeron -) 7.5 mg PO [facility] Pantoprazole Sodium (Protonix -) 40 mg PO DAILY [facility] Last Admin: 06/17/20 10:29 Dose: 40 mg Documented by: - Allergies Allergies: Allergies Allergy/AdvReac Type Severity Reaction Status Date / Time Penicillins Allergy Severe Rash Verified 12/20/19 08:26 - Current Living Status Usual Living Arrangement: Alone - Current Mental Status Evaluation Appearance: Disheveled Attitude: Cooperative - Affect Affect: Constrictive Appropriateness: Appropriate to Content - Mood Mood: Anxious - Speech/Language Expressive: Coherent - Psychomotor Activity Psychomotor Activity: Hyperactive - Thought Process Thought Process: Intact - Thought Content Hallucinations: Absent Delusions: Absent - Self Perception Self Perception: No Impairment - Cognition Attention: Alert Orientation: Time Memory, Immediate Recall: Intact Memory, Short Term: 3/3 Memory, Remote with Promptin/3 - Concentration Serial Sevens Intact: Yes Simple Calculations Intact: Yes - Abstraction Proverb Interpretation: Intact Judgement: Intact - Insight Insight: Intact - Impulse Control Impulse Control: Good Control - Suicidal Ideation Suicidal Ideation: No - Homicidal Ideation Homicidal Ideation: No Assessment/Plan 1) d/c Xanax and Ambien. 2) Remeron 7.5 mg po hs and can be increased to 15 mg po hsif needed for sleep and anxiety.
[2020-06-17 15:22] LABS: ALBUMIN 2.1 g/dl (3.4-5.0); BILIRUBIN,TOTAL 0.4 mg/dL (0.2-1); BLOOD UREA NITROGEN 33.4 mg/dL (7-18); CALCIUM 8.1 mg/dL (8.5-10.1); CREATININE 1.5 mg/dL (0.55-1.3); POTASSIUM 4.4 mmol/L (3.5-5.1); TOT PROT 6.4 g/dl (6.4-8.2)
[2020-06-17 15:25] LABS: URIC ACID 5.6 mg/dL (2.6-7.2)
[2020-06-17] MEDS ORDERED: SODIUM CHLORIDE IV ONE (15:30)
[2020-06-17] MEDS ORDERED: DECITABINE IV ONE (15:30)
[2020-06-17 15:35] LABS: ANISOCYTOSIS 2+; MACROCYTOSIS 1+; PLATELET ESTIMATE DECREASED
[2020-06-17] MEDS ORDERED: ACETAMINOPHEN 1000 MG/100 ML VIAL (NON FORMULARY) IVPB PRN (16:09)
--- NOTE | 2020-06-17 16:12 | PN ---
Progress Note, Physician History of Present Illness: Pt seen and examined at bedside. He appears comfortable. He denies shortness of breath at rest. - Current Medication List Current Medications: Active Medications Allopurinol (Zyloprim -) 300 mg PO DAILY [facility] Last Admin: 06/17/20 10:29 Dose: 300 mg Documented by: Artificial Tears (Artificial Tears) 1 drop OU DAILY [facility] Last Admin: 06/17/20 10:30 Dose: 1 drp Documented by: Atorvastatin Calcium (Lipitor -) 20 mg PO HS [facility] Last Admin: 06/16/20 21:26 Dose: 20 mg Documented by: Docusate Sodium (Colace -) 100 mg PO Q8H PRN PRN Reason: CONSTIPATION Famotidine (Acid Informatica Mdm Developer) 10 mg PO DAILY [facility] Last Admin: 06/17/20 10:30 Dose: 10 mg Documented by: Hydroxyurea (Hydrea -) 1,000 mg PO BID [facility] Last Admin: 06/17/20 10:29 Dose: 1,000 mg Documented by: Sodium Chloride (Normal Saline -) 1,000 mls @ 50 mls/hr IV ASDIR [facility] Stop: 06/18/20 14:59 Decitabine 41 mg/ Sodium (Chloride) 108.2 mls @ 108.2 mls/hr IV ONCE ONE Stop: 06/17/20 16:29 Ondansetron HCl 8 mg/ Sodium (Chloride) 54 mls @ 216 mls/hr IVPB Q12H [facility] Stop: 06/18/20 03:14 Sodium Chloride (Normal Saline -) 1,000 mls @ 50 mls/hr IV ASDIR [facility] Stop: 06/19/20 14:59 Decitabine 41 mg/ Sodium (Chloride) 108.2 mls @ 108.2 mls/hr IV ONCE ONE Stop: 06/18/20 16:29 Lisinopril (Prinivil) 10 mg PO DAILY [facility] Last Admin: 06/17/20 10:30 Dose: 10 mg Documented by: Metoprolol Tartrate (Lopressor -) 50 mg PO DAILY [facility] Last Admin: 06/17/20 10:29 Dose: 50 mg Documented by: Mirtazapine (Remeron -) 7.5 mg PO [facility] Pantoprazole Sodium (Protonix -) 40 mg PO DAILY [facility] Last Admin: 06/17/20 10:29 Dose: 40 mg Documented by: Prochlorperazine Edisylate (Compazine Injection -) 10 mg IVPB ONCE ONE Stop: 06/18/20 15:01 - Objective Vital Signs: Vital Signs Temperature 97.4 F L 06/17/20 14:12 Pulse Rate 102 H 06/17/20 14:12 Respiratory Rate 20 06/17/20 14:12 Blood Pressure 114/65 06/17/20 14:12 O2 Sat by Pulse Oximetry (%) 99 06/17/20 10:35 Constitutional: Yes: Calm Eyes: Yes: Conjunctiva Clear HENT: Yes: Atraumatic Neck: Yes: Supple Cardiovascular: Yes: S1, S2 Respiratory: Yes: CTA Bilaterally, On Nasal O2 Gastrointestinal: Yes: Distention Genitourinary: Yes: WNL Musculoskeletal: Yes: WNL Edema: LLE: Trace, RLE: Trace Neurological: Yes: Oriented Psychiatric: Yes: Oriented Labs: CBC, BMP 06/17/20 13:45 06/17/20 14:10 INR, PTT INR 1.31 (0.83-1.09) H 06/14/20 19:20 Fibrinogen > 500.0 mg/dL (238-498) H 06/14/20 19:20 Assessment/Plan Current Medications Generic Name Dose Route Start Last Admin Trade Name Freq PRN Reason Stop Dose Admin Acetaminophen 1,000 mg 06/17/20 16:09 Ofirmev Injection - IVPB 06/18/20 16:09 Q6H PRN PAIN LEVEL 6-10 Allopurinol 300 mg 06/16/20 10:00 06/17/20 10:29 Zyloprim - PO 300 mg DAILY [facility] Administration Artificial Tears 1 drop 06/16/20 10:00 06/17/20 10:30 Artificial Tears OU 1 drp DAILY [facility] Administration Atorvastatin Calcium 20 mg 06/15/20 22:00 06/16/20 21:26 Lipitor - PO 20 mg HS [facility] Administration Docusate Sodium 100 mg 06/17/20 15:35 Colace - PO Q8H PRN CONSTIPATION Famotidine 10 mg 06/16/20 10:00 06/17/20 10:30 Acid Informatica Mdm Developer PO 10 mg DAILY [facility] Administration Hydroxyurea 1,000 mg 06/16/20 10:00 06/17/20 10:29 Hydrea - PO 1,000 mg BID [facility] Administration Sodium Chloride 1,000 mls @ 50 mls/hr 06/17/20 15:00 Normal Saline - IV 06/18/20 14:59 ASDIR ERM[facility] Decitabine 41 mg/ Sodium 108.2 mls @ 108.2 mls/hr 06/17/20 15:30 Chloride IV 06/17/20 16:29 ONCE ONE Ondansetron HCl 8 mg/ Sodium 54 mls @ 216 mls/hr 06/17/20 15:00 Chloride IVPB 06/18/20 03:14 Q12H ERMELINDA Sodium Chloride 1,000 mls @ 50 mls/hr 06/18/20 15:00 Normal Saline - IV 06/19/20 14:59 ASDIR ERMELINDA Decitabine 41 mg/ Sodium 108.2 mls @ 108.2 mls/hr 06/18/20 15:30 Chloride IV 06/18/20 16:29 ONCE ONE Lisinopril 10 mg 06/16/20 10:00 06/17/20 10:30 Prinivil PO 10 mg DAILY [facility] Administration Metoprolol Tartrate 50 mg 06/15/20 18:30 06/17/20 10:29 Lopressor - PO 50 mg DAILY [facility] Administration Mirtazapine 7.5 mg 06/17/20 22:00 Remeron - PO HS [facility] Pantoprazole Sodium 40 mg 06/16/20 10:00 06/17/20 10:29 Protonix - PO 40 mg DAILY [facility] Administration Prochlorperazine Edisylate 10 mg 06/18/20 15:00 Compazine Injection - IVPB 06/18/20 15:01 ONCE ONE Laboratory Tests 06/17/20 06/17/20 13:45 14:10 Uric Acid 5.6 Calcium 8.1 L Albumin 2.1 L Impression 1. CKD 2. CML 3. AML 4. pleural effusions 5. htn 6. tumor lysis Plan - monitor lytes - lasix as needed - oncology follow up - check phos level - cont to monitor volume status - check daily weights - lasix as needed - cont allopurinol
[2020-06-17] MEDS: SODIUM CHLORIDE 1,000 ML IV SCH ×2 (17:54→22:06)
--- NOTE | 2020-06-17 18:10 | PN.HO ---
Progress Note (short form) - Note Progress Note: PAtient seen and examined Talking in full sentecnces but dyspneic AFVSS Cor: RSR, No murmurs, No gallops Lungs: decrease at abses Abd: Soft, Normal bowel sounds, distended,+++ splenomegaly. 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 WBC 198,000. 30% blasts CTA -- b/l pleural effusions Cr 1.6 LDH -430s Uric acid 9.7 --- down to 4 and then 4.5 after rasburicase. Continue to monitor severely anemic on admission --6.2 --- received PRBCs Transfuse for Hgb <7 s/p rasburicase 6mg IVSS x 1 dose 06/14 f/u G-6 PD continue hydrea Monitor for tumor lysis gentle hydration f/u renal/cardio recs regarding diuresis s/p PICC line discussed overall very guarded prognosis with patients girlfriend and sister
[2020-06-17] MEDS: DOCUSATE SODIUM 100 MG CAPSULE (FP) PO PRN (18:44)
[2020-06-17] MEDS: MIRTAZAPINE 15 MG TABLET (FP) PO SCH (21:30)
[2020-06-17] MEDS: ATORVASTATIN CA 20 MG TABLET (FP) PO SCH (21:30)
[2020-06-18] MEDS: ONDANSETRON INJECTION 8 MG in SODIUM CHLORIDE 50 ML IVPB SCH (02:09)
[2020-06-18 06:45] LABS: EOS % 0.2 % (0-4.5); HEMATOCRIT 25.1 % (35.4-49); HEMOGLOBIN 7.3 GM/dL (11.7-16.9); MCH 24.5 pg (25.7-33.7); MCHC 29.3 g/dl (32.0-35.9); MEAN CELL VOLUME 83.7 fl (80-96); MEAN PLT VOLUME 10.5 fl (7.5-11.1); MONO % 32.4 % (3.8-10.2); NEUT % 55.4 % (42.8-82.8); PLATELET COUNT 109 K/MM3 (134-434); RDW 19.5 % (11.9-15.9)
[2020-06-18 06:49] LABS: WHITE BLOOD COUNT 118.7 K/mm3 (4.0-10.0)
[2020-06-18 06:57] LABS: ALBUMIN 2.2 g/dl (3.4-5.0); BILIRUBIN,TOTAL 0.6 mg/dL (0.2-1); CREATININE 1.4 mg/dL (0.55-1.3); PHOSPHOROUS 4.2 mg/dL (2.5-4.9); POTASSIUM 4.3 mmol/L (3.5-5.1); TOT PROT 6.5 g/dl (6.4-8.2)
[2020-06-18 07:24] LABS: BLOOD UREA NITROGEN 39.2 mg/dL (7-18)
[2020-06-18] MEDS ORDERED: LORazepam 2 MG/ML SDV VIAL IVPUSH PRN (09:25)
--- NOTE | 2020-06-18 09:28 | PN ---
Progress Note, Physician Chief Complaint: ON BIPAP EVENTS AND NOTES REVIEWED DYSPNEA/ANXIOUS ALL NIGHT - Current Medication List Current Medications: Active Medications Acetaminophen (Ofirmev Injection -) 1,000 mg IVPB Q6H PRN PRN Reason: PAIN LEVEL 6-10 Stop: 06/18/20 16:09 Last Admin: 06/17/20 18:43 Dose: 1,000 mg Documented by: Allopurinol (Zyloprim -) 300 mg PO DAILY [facility] Last Admin: 06/17/20 10:29 Dose: 300 mg Documented by: Artificial Tears (Artificial Tears) 1 drop OU DAILY [facility] Last Admin: 06/17/20 10:30 Dose: 1 drp Documented by: Atorvastatin Calcium (Lipitor -) 20 mg PO [facility] Last Admin: 06/17/20 21:30 Dose: 20 mg Documented by: Docusate Sodium (Colace -) 100 mg PO Q8H PRN PRN Reason: CONSTIPATION Last Admin: 06/17/20 18:44 Dose: 100 mg Documented by: Famotidine (Acid Financial Systems Manager) 10 mg PO DAILY [facility] Last Admin: 06/17/20 10:30 Dose: 10 mg Documented by: Hydroxyurea (Hydrea -) 1,000 mg PO BID [facility] Last Admin: 06/17/20 21:30 Dose: 1,000 mg Documented by: Sodium Chloride (Normal Saline -) 1,000 mls @ 50 mls/hr IV ASDIR [facility] Stop: 06/18/20 14:59 Last Admin: 06/17/20 22:06 Dose: 50 mls/hr Documented by: Sodium Chloride (Normal Saline -) 1,000 mls @ 50 mls/hr IV ASDIR [facility] Stop: 06/19/20 14:59 Decitabine 41 mg/ Sodium (Chloride) 108.2 mls @ 108.2 mls/hr IV ONCE ONE Stop: 06/18/20 16:29 Lisinopril (Prinivil) 10 mg PO DAILY [facility] Last Admin: 06/17/20 10:30 Dose: 10 mg Documented by: Lorazepam (Ativan Injection -) 0.5 mg IVPUSH Q6H PRN PRN Reason: ANXIETY Metoprolol Tartrate (Lopressor -) 50 mg PO DAILY [facility] Last Admin: 06/17/20 10:29 Dose: 50 mg Documented by: Mirtazapine (Remeron -) 7.5 mg PO [facility] Last Admin: 06/17/20 21:30 Dose: 7.5 mg Documented by: Pantoprazole Sodium (Protonix -) 40 mg PO DAILY [facility] Last Admin: 06/17/20 10:29 Dose: 40 mg Documented by: Prochlorperazine Edisylate (Compazine Injection -) 10 mg IVPB ONCE ONE Stop: 06/18/20 15:01 - Objective Vital Signs: Vital Signs Temperature 97.4 F L 06/18/20 06:00 Pulse Rate 128 H 06/18/20 07:48 Respiratory Rate 06/18/20 06:00 Blood Pressure 134/73 06/18/20 06:00 O2 Sat by Pulse Oximetry (%) 98 06/18/20 07:48 Constitutional: Yes: Moderate Distress Cardiovascular: Yes: Tachycardia Respiratory: Yes: Diminished, On BiPap Gastrointestinal: Yes: Distention Genitourinary: Yes: Incontinence Musculoskeletal: Yes: Muscle Weakness Labs: CBC, BMP 06/18/20 05:37 06/18/20 05:37 INR, PTT INR 1.31 (0.83-1.09) H 06/14/20 19:20 Fibrinogen > 500.0 mg/dL (238-498) H 06/14/20 19:20 Problem List - Problems (1) AML (acute myeloblastic leukemia) Code(s): C92.00 - ACUTE MYELOBLASTIC LEUKEMIA, NOT HAVING ACHIEVED REMISSION (2) CHF (congestive heart failure) Code(s): I50.9 - HEART FAILURE, UNSPECIFIED (3) Palpitations Code(s): R00.2 - PALPITATIONS (4) Shortness of breath Code(s): R06.02 - SHORTNESS OF BREATH Assessment/Plan RESPIRATORY DISTRESS ON BIPAP ATIVAN PRN MONITOR LABS XRAY CHEST AND ABDOMEN BEDSIDE FOR CHF/ABDOMINAL DISTENTION F/U PULMONARYAND ONCOLOGY APPRECIATED CREATININE 1.4
[2020-06-18 10:34] LABS: PLATELET ESTIMATE DECREASED
--- NOTE | 2020-06-18 10:35 | PN ---
Progress Note, Physician Chief Complaint: feels weak, SOB History of Present Illness: 70M w/hx HTN, HLD, CML with recent development of AML p/w 4 days of worsening shortness of breath. He reports worsening orthopnea alongside bilateral lower extremity swelling for the last 4 days. He reports that he "always has a fast heart rate". He denies palpitations, dizziness or syncope. Exercise tolerance is very poor. He was awaiting chemo. ECG stach lad rbbb. TnI negative. CTA 06/14/20 no PE, bilat effusions R>L admitted to ICU due to risk of tumor lysis syndrome. Hydrea ordered, not given yet due to patient refusal. echo 06/15/20 normal EF. receiving chemotherapy. - Current Medication List Current Medications: Active Medications Acetaminophen (Ofirmev Injection -) 1,000 mg IVPB Q6H PRN PRN Reason: PAIN LEVEL 6-10 Stop: 06/18/20 16:09 Last Admin: 06/17/20 18:43 Dose: 1,000 mg Documented by: Allopurinol (Zyloprim -) 300 mg PO DAILY [facility] Last Admin: 06/17/20 10:29 Dose: 300 mg Documented by: Alprazolam (Xanax -) 0.25 mg PO BID [facility] Artificial Tears (Artificial Tears) 1 drop OU DAILY [facility] Last Admin: 06/17/20 10:30 Dose: 1 drp Documented by: Atorvastatin Calcium (Lipitor -) 20 mg PO HS [facility] Last Admin: 06/17/20 21:30 Dose: 20 mg Documented by: Docusate Sodium (Colace -) 100 mg PO Q8H PRN PRN Reason: CONSTIPATION Last Admin: 06/17/20 18:44 Dose: 100 mg Documented by: Famotidine (Acid Textile Coating Machine Operator) 10 mg PO DAILY [facility] Last Admin: 06/17/20 10:30 Dose: 10 mg Documented by: Hydroxyurea (Hydrea -) 1,000 mg PO BID [facility] Last Admin: 06/17/20 21:30 Dose: 1,000 mg Documented by: Sodium Chloride (Normal Saline -) 1,000 mls @ 50 mls/hr IV ASDIR [facility] Stop: 06/18/20 14:59 Last Admin: 06/17/20 22:06 Dose: 50 mls/hr Documented by: Sodium Chloride (Normal Saline -) 1,000 mls @ 50 mls/hr IV ASDIR [facility] Stop: 06/19/20 14:59 Decitabine 41 mg/ Sodium (Chloride) 108.2 mls @ 108.2 mls/hr IV ONCE ONE Stop: 06/18/20 16:29 Lisinopril (Prinivil) 10 mg PO DAILY [facility] Last Admin: 06/17/20 10:30 Dose: 10 mg Documented by: Metoprolol Tartrate (Lopressor -) 50 mg PO DAILY [facility] Last Admin: 06/17/20 10:29 Dose: 50 mg Documented by: Mirtazapine (Remeron -) 7.5 mg PO HS [facility] Last Admin: 06/17/20 21:30 Dose: 7.5 mg Documented by: Pantoprazole Sodium (Protonix -) 40 mg PO DAILY [facility] Last Admin: 06/17/20 10:29 Dose: 40 mg Documented by: Prochlorperazine Edisylate (Compazine Injection -) 10 mg IVPB ONCE ONE Stop: 06/18/20 15:01 - Objective Vital Signs: Vital Signs Temperature 97.4 F L 06/18/20 06:00 Pulse Rate 128 H 06/18/20 07:48 Respiratory Rate 06/18/20 06:00 Blood Pressure 134/73 06/18/20 06:00 O2 Sat by Pulse Oximetry (%) 98 06/18/20 07:48 Constitutional: Yes: Anxious Eyes: Yes: Conjunctiva Clear, EOM Intact HENT: Yes: Normocephalic Neck: Yes: Trachea Midline Cardiovascular: Yes: Regular Rate and Rhythm, Tachycardia Respiratory: Yes: Accessory Muscle Use Gastrointestinal: Yes: Normal Bowel Sounds, Soft Musculoskeletal: Yes: WNL Extremities: Yes: WNL Edema: No Labs: CBC, BMP 06/18/20 05:37 06/18/20 05:37 INR, PTT INR 1.31 (0.83-1.09) H 06/14/20 19:20 Fibrinogen > 500.0 mg/dL (238-498) H 06/14/20 19:20 Assessment/Plan 70M w/hx HTN, HLD, CML with recent development of AML p/w 4 days of worsening shortness of breath. He reports worsening orthopnea alongside bilateral lower extremity swelling for the last 4 days. He reports that he "always has a fast heart rate". He denies palpitations, dizziness or syncope. Exercise tolerance is very poor. He was awaiting chemo. ECG stach lad rbbb. TnI negative. CTA 06/14/20 no PE, bilat effusions R>L admitted to ICU due to risk of tumor lysis syndrome. Hydrea ordered, not given yet due to patient refusal. echo 06/15/20 normal EF. awaiting chemotherapy. IMP: -sinus tachycardia due to AML, severe anemia. -he is in a high output state. May need lasix for diuresis but would also consider prbcs. -no evidence of ACS -no evidence of PE -echo 06/15/20 normal EF. -will follow with you.
[2020-06-18] MEDS: HYDROXYUREA 500 MG CAPSULE PO SCH ×2 (10:39→21:19)
[2020-06-18] MEDS: ALLOPURINOL 300 MG TABLET (FP) PO SCH (10:39)
[2020-06-18] MEDS: METOPROLOL TARTRATE 50 MG TABLET (FP) PO SCH (10:40)
[2020-06-18] MEDS: LISINOPRIL 10 MG TABLET PO SCH (10:40)
[2020-06-18] MEDS: FAMOTIDINE 10 MG TABLET PO SCH (10:40)
[2020-06-18] MEDS: PANTOPRAZOLE 40 MG TABLET PO SCH (10:40)
[2020-06-18] MEDS: ARTIFICIAL TEARS (POLYVINYL ALCOHOL) OPTH DROPS OU SCH (10:40)
[2020-06-18] MEDS: ALPRAZolam 0.25 MG TABLET PO SCH ×2 (10:47→21:20)
--- NOTE | 2020-06-18 12:13 | PN ---
Progress Note, Physician History of Present Illness: DEVELOPED PHLEBITIS R UE NO CO PAIN AFEBRILE - Current Medication List Current Medications: Active Medications Acetaminophen (Ofirmev Injection -) 1,000 mg IVPB Q6H PRN PRN Reason: PAIN LEVEL 6-10 Stop: 06/18/20 16:09 Last Admin: 06/17/20 18:43 Dose: 1,000 mg Documented by: Allopurinol (Zyloprim -) 300 mg PO DAILY [facility] Last Admin: 06/18/20 10:39 Dose: 300 mg Documented by: Alprazolam (Xanax -) 0.25 mg PO BID [facility] Last Admin: 06/18/20 10:47 Dose: 0.25 mg Documented by: Artificial Tears (Artificial Tears) 1 drop OU DAILY [facility] Last Admin: 06/18/20 10:40 Dose: 1 drp Documented by: Atorvastatin Calcium (Lipitor -) 20 mg PO HS [facility] Last Admin: 06/17/20 21:30 Dose: 20 mg Documented by: Docusate Sodium (Colace -) 100 mg PO Q8H PRN PRN Reason: CONSTIPATION Last Admin: 06/17/20 18:44 Dose: 100 mg Documented by: Famotidine (Acid Industry Operations Investigator) 10 mg PO DAILY [facility] Last Admin: 06/18/20 10:40 Dose: 10 mg Documented by: Hydroxyurea (Hydrea -) 1,000 mg PO BID [facility] Last Admin: 06/18/20 10:39 Dose: 1,000 mg Documented by: Sodium Chloride (Normal Saline -) 1,000 mls @ 50 mls/hr IV ASDIR [facility] Stop: 06/18/20 14:59 Last Admin: 06/17/20 22:06 Dose: 50 mls/hr Documented by: Sodium Chloride (Normal Saline -) 1,000 mls @ 50 mls/hr IV ASDIR [facility] Stop: 06/19/20 14:59 Decitabine 41 mg/ Sodium (Chloride) 108.2 mls @ 108.2 mls/hr IV ONCE ONE Stop: 06/18/20 16:29 Lisinopril (Prinivil) 10 mg PO DAILY [facility] Last Admin: 06/18/20 10:40 Dose: 10 mg Documented by: Metoprolol Tartrate (Lopressor -) 50 mg PO DAILY [facility] Last Admin: 06/18/20 10:40 Dose: 50 mg Documented by: Mirtazapine (Remeron -) 7.5 mg PO HS [facility] Last Admin: 06/17/20 21:30 Dose: 7.5 mg Documented by: Pantoprazole Sodium (Protonix -) 40 mg PO DAILY [facility] Last Admin: 06/18/20 10:40 Dose: 40 mg Documented by: Prochlorperazine Edisylate (Compazine Injection -) 10 mg IVPB ONCE ONE Stop: 06/18/20 15:01 - Objective Vital Signs: Vital Signs Temperature 98 F 06/18/20 11:21 Pulse Rate 107 H 06/18/20 11:43 Respiratory Rate 20 06/18/20 11:21 Blood Pressure 117/63 06/18/20 11:21 O2 Sat by Pulse Oximetry (%) 98 06/18/20 11:21 Constitutional: Yes: No Distress Eyes: Yes: Conjunctiva Clear Cardiovascular: Yes: Regular Rate and Rhythm, S1, S2 Respiratory: Yes: CTA Bilaterally Gastrointestinal: Yes: Normal Bowel Sounds, Soft. No: Tenderness Extremities: Yes: Other (+ PHLEBITIS R UE/ PALPABLE CORD NON TENDER PICC R UE) Labs: CBC, BMP 06/18/20 05:37 06/18/20 05:37 INR, PTT INR 1.31 (0.83-1.09) H 06/14/20 19:20 Fibrinogen > 500.0 mg/dL (238-498) H 06/14/20 19:20 Assessment/Plan PHLEBITIS R UE AML WARM COMPRESSES PRN
--- NOTE | 2020-06-18 12:33 | PN ---
Progress Note (short form) - Note Progress Note: PULMONARY REMAINS CONSTIPATED VSS/AFEBRILE GENERAL: Awake, alert, and fully oriented, dyspneic at rest HEAD: Normal with no signs of trauma. EYES: Pupils equal, round and reactive to light, extraocular movements intact LUNGS: Breath sounds equal, decreased at bases, (+) Mild accessory muscle use. HEART: Regular rate and rhythm, normal S1 and S2 ABDOMEN: Softly distended, mild non-specific tenderness, (+) BS, no guarding, no rebound, MUSCULOSKELETAL: No CVA tenderness. UPPER EXTREMITIES: 2+ pulses, warm, multiple ecchymosis of different stages LOWER EXTREMITIES: 2+ pulses, warm, well-perfused. No calf tenderness.2+ pitting edema NEUROLOGICAL: Non-focal LABS/MEDS/NOTES IMAGES REVIEWED Tumor Lysis due to AML Do not suspect PNA Pleural effusion likely related to AML HTN Gout HLD CKD History of CML Supplemental O2 as needed VTE prophylaxis Decitabine per Oncology Monitor off ABX Allopurinol Laxatives Rishi TERAN MD
[2020-06-18] MEDS: POLYETHYLENE GLYCOL 3350 119 GM BTL PO SCH ×2 (14:25→21:22)
[2020-06-18] MEDS: DOCUSATE SODIUM 100 MG CAPSULE (FP) PO PRN (14:26)
[2020-06-18] MEDS ORDERED: PROCHLORPERAZINE INJECTION 10 MG/2 ML VIAL IVPB ONE (15:00)
[2020-06-18] MEDS: ONDANSETRON 4 MG/2 ML VIAL IVPB PRN (15:23)
[2020-06-18] MEDS ORDERED: DECITABINE IV ONE (15:30)
[2020-06-18] MEDS ORDERED: SODIUM CHLORIDE IV ONE (15:30)
--- NOTE | 2020-06-18 15:50 | CON.GI ---
Consult - History of Present Illness History of Present Illness: 70M w/hx HTN, HLD, CML with recent development of AML p/w 4 days of worsening shortness of breath. He reports worsening orthopnea alongside bilateral lower extremity swelling for the last 4 days. He reports that he "always has a fast heart rate". He denies palpitations, dizziness or syncope. Exercise tolerance is very poor. He was awaiting chemo. ECG stach lad rbbb. TnI negative. CTA 06/14/20 no PE, bilat effusions R>L CT of chest and abdomen reveals extensive lymphadenopathy possibly secondary to lymphoma - Past Medical History Cardio/Vascular: Yes: HTN, Hyperlipdemia Gastrointestinal: Yes: GERD, Other (Ischemic Colitis) - Past Surgical History Past Surgical History: Yes: Arthrosocopy (Left Shoulder) - Alcohol/Substance Use Hx Alcohol Use: Yes (scotch) History of Substance Use: reports: None - Smoking History Smoking history: Former smoker Have you smoked in the past 12 months: No Aproximately how many cigarettes per day: 10 If you are a former smoker, when did you quit?: 1 yr ago - Social History Usual Living Arrangement: Alone ADL: Independent History of Recent Travel: No Home Medications - Allergies Allergies/Adverse Reactions: Allergies Allergy/AdvReac Type Severity Reaction Status Date / Time Penicillins Allergy Severe Rash Verified 12/20/19 08:26 - Home Medications Home Medications: Ambulatory Orders Omeprazole [Prilosec] 40 mg PO DAILY 01/26/12 Budesonide 8.6 gm NS PRN 05/16/19 Allopurinol [Zyloprim -] 100 mg PO DAILY 05/25/20 Colchicine 0.6 mg PO BID 05/25/20 Famotidine [Acid Combustion Analyst] 10 mg PO ASDIR 05/25/20 Propylene Glycol/Peg 400/Pf [Systane 0.3-0.4% Eye Drops] 1 each OP DAILY 05/25/20 Atorvastatin Ca [Lipitor] 20 mg PO DAILY 05/26/20 Lisinopril 10 mg PO DAILY 05/26/20 Metoprolol Tartrate 50 mg PO DAILY 05/26/20 Family Medical History Family History: Unable to Obtain Family Hx Cancer: Sister (Hodgkin's Lymphoma- age 24) Physical Exam-GI Vital Signs: Vital Signs Temperature 97.2 F L 06/18/20 15:00 Pulse Rate 103 H 06/18/20 15:16 Respiratory Rate 20 06/18/20 15:00 Blood Pressure 116/62 06/18/20 15:00 O2 Sat by Pulse Oximetry (%) 97 06/18/20 15:16 Constitutional: Yes: Anxious Eyes: Yes: Conjunctiva Clear HENT: Yes: Atraumatic Neck: Yes: Trachea Midline Cardiovascular: Yes: Regular Rate and Rhythm Respiratory: Yes: Diminished Gastrointestinal Inspection: Yes: Distention ...Palpate: Yes: Soft, Tenderness (--mild), Other (small subcutaneous nodules). No: Firm/Rigid, Guarding, Hepatomegaly, Mass Labs: CBC, BMP 06/18/20 05:37 06/18/20 05:37 INR, PTT INR 1.31 (0.83-1.09) H 06/14/20 19:20 Fibrinogen > 500.0 mg/dL (238-498) H 06/14/20 19:20 Problem List - Problems (1) Abdominal distention Assessment/Plan: secondary to AML, lymphadenopathy possible ascitis R> await CT abdomen results continue chemotherapy fleet enema if no response to Miralax Code(s): R14.0 - ABDOMINAL DISTENSION (GASEOUS)
[2020-06-18] MEDS: SODIUM CHLORIDE 1,000 ML IV SCH ×2 (16:16→21:32)
--- NOTE | 2020-06-18 16:21 | PN ---
Progress Note, Physician History of Present Illness: Pt seen and examined at bedside. He is out of bed to chair. He feels that his breathing is comfortable. - Current Medication List Current Medications: Active Medications Allopurinol (Zyloprim -) 300 mg PO DAILY [facility] Last Admin: 06/18/20 10:39 Dose: 300 mg Documented by: Alprazolam (Xanax -) 0.25 mg PO BID [facility] Last Admin: 06/18/20 10:47 Dose: 0.25 mg Documented by: Artificial Tears (Artificial Tears) 1 drop OU DAILY [facility] Last Admin: 06/18/20 10:40 Dose: 1 drp Documented by: Atorvastatin Calcium (Lipitor -) 20 mg PO HS [facility] Last Admin: 06/17/20 21:30 Dose: 20 mg Documented by: Docusate Sodium (Colace -) 100 mg PO Q8H PRN PRN Reason: CONSTIPATION Last Admin: 06/18/20 14:26 Dose: 100 mg Documented by: Famotidine (Acid Fruit Peeler) 10 mg PO DAILY [facility] Last Admin: 06/18/20 10:40 Dose: 10 mg Documented by: Hydroxyurea (Hydrea -) 1,000 mg PO BID [facility] Last Admin: 06/18/20 10:39 Dose: 1,000 mg Documented by: Sodium Chloride (Normal Saline -) 1,000 mls @ 50 mls/hr IV ASDIR [facility] Stop: 06/19/20 14:59 Last Admin: 06/18/20 16:16 Dose: Not Given Documented by: Decitabine 41 mg/ Sodium (Chloride) 108.2 mls @ 108.2 mls/hr IV ONCE ONE Stop: 06/18/20 16:29 Last Admin: 06/18/20 16:13 Dose: 108.2 mls/hr Documented by: Decitabine 41 mg/ Sodium (Chloride) 108.2 mls @ 108.2 mls/hr IV ONCE ONE Stop: 06/19/20 12:59 Lisinopril (Prinivil) 10 mg PO DAILY [facility] Last Admin: 06/18/20 10:40 Dose: 10 mg Documented by: Metoprolol Tartrate (Lopressor -) 50 mg PO DAILY [facility] Last Admin: 06/18/20 10:40 Dose: 50 mg Documented by: Mirtazapine (Remeron -) 7.5 mg PO HS [facility] Last Admin: 06/17/20 21:30 Dose: 7.5 mg Documented by: Ondansetron HCl (Zofran Injection) 8 mg IVPB Q12H PRN PRN Reason: NAUSEA Last Admin: 06/18/20 15:23 Dose: 8 mg Documented by: Pantoprazole Sodium (Protonix -) 40 mg PO DAILY [facility] Last Admin: 06/18/20 10:40 Dose: 40 mg Documented by: Polyethylene Glycol (Miralax (For Daily Use) -) 17 gm PO BID [facility] Last Admin: 06/18/20 14:25 Dose: 17 gm Documented by: - Objective Vital Signs: Vital Signs Temperature 97.2 F L 06/18/20 15:00 Pulse Rate 103 H 06/18/20 15:16 Respiratory Rate 20 06/18/20 15:00 Blood Pressure 116/62 06/18/20 15:00 O2 Sat by Pulse Oximetry (%) 97 06/18/20 15:16 Constitutional: Yes: Calm Eyes: Yes: Conjunctiva Clear HENT: Yes: Atraumatic Neck: Yes: Supple Cardiovascular: Yes: S1, S2 Respiratory: Yes: CTA Bilaterally, On Nasal O2 Gastrointestinal: Yes: Normal Bowel Sounds, Soft, Distention Musculoskeletal: Yes: WNL Edema: Yes Edema: LLE: 1+, RLE: 1+ Neurological: Yes: Oriented Psychiatric: Yes: Oriented Labs: CBC, BMP 06/18/20 05:37 06/18/20 05:37 INR, PTT INR 1.31 (0.83-1.09) H 06/14/20 19:20 Fibrinogen > 500.0 mg/dL (238-498) H 06/14/20 19:20 Assessment/Plan Current Medications Generic Name Dose Route Start Last Admin Trade Name Freq PRN Reason Stop Dose Admin Allopurinol 300 mg 06/16/20 10:00 06/18/20 10:39 Zyloprim - PO 300 mg DAILY [facility] Administration Alprazolam 0.25 mg 06/18/20 10:00 06/18/20 10:47 Xanax - PO 0.25 mg BID [facility] Administration Artificial Tears 1 drop 06/16/20 10:00 06/18/20 10:40 Artificial Tears OU 1 drp DAILY [facility] Administration Atorvastatin Calcium 20 mg 06/15/20 22:00 06/17/20 21:30 Lipitor - PO 20 mg HS [facility] Administration Docusate Sodium 100 mg 06/17/20 15:35 06/18/20 14:26 Colace - PO 100 mg Q8H PRN Administration CONSTIPATION Famotidine 10 mg 06/16/20 10:00 06/18/20 10:40 Acid Fruit Peeler PO 10 mg DAILY [facility] Administration Hydroxyurea 1,000 mg 06/16/20 10:00 06/18/20 10:39 Hydrea - PO 1,000 mg BID [facility] Administration Sodium Chloride 1,000 mls @ 50 mls/hr 06/18/20 15:00 06/18/20 16:16 Normal Saline - IV 06/19/20 14:59 Not Given ASDIR [facility] Decitabine 41 mg/ Sodium 108.2 mls @ 108.2 mls/hr 06/18/20 15:30 06/18/20 16:13 Chloride IV 06/18/20 16:29 108.2 mls/hr ONCE ONE Administration Decitabine 41 mg/ Sodium 108.2 mls @ 108.2 mls/hr 06/19/20 12:00 Chloride IV 06/19/20 12:59 ONCE ONE Lisinopril 10 mg 06/16/20 10:00 06/18/20 10:40 Prinivil PO 10 mg DAILY [facility] Administration Metoprolol Tartrate 50 mg 06/15/20 18:30 06/18/20 10:40 Lopressor - PO 50 mg DAILY [facility] Administration Mirtazapine 7.5 mg 06/17/20 22:00 06/17/20 21:30 Remeron - PO 7.5 mg HS [facility] Administration Ondansetron HCl 8 mg 06/18/20 12:58 06/18/20 15:23 Zofran Injection IVPB 8 mg Q12H PRN Administration NAUSEA Pantoprazole Sodium 40 mg 06/16/20 10:00 06/18/20 10:40 Protonix - PO 40 mg DAILY [facility] Administration Polyethylene Glycol 17 gm 06/18/20 12:45 06/18/20 14:25 Miralax (For Daily Use) - PO 17 gm BID [facility] Administration Impression 1. CKD 2. CML 3. AML 4. pleural effusions 5. htn 6. tumor lysis Plan - cont saline - monitor lytes - renal function stable - lasix prn - oncology follow up - check daily weights - cont allopurinol
--- NOTE | 2020-06-18 17:53 | PN.HO ---
Progress Note (short form) - Note Progress Note: PAtient seen and examined Talking in full sentecnces , dyspneic Vital Signs Temperature 97.2 F L 06/18/20 15:00 Pulse Rate 103 H 06/18/20 15:16 Respiratory Rate 20 06/18/20 15:00 Blood Pressure 116/62 06/18/20 15:00 O2 Sat by Pulse Oximetry (%) 97 06/18/20 15:16 Cor: RSR, No murmurs, No gallops Lungs: decreased at abses Abd: Soft, Normal bowel sounds, distended,+++ splenomegaly. 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 WBC 198,000. 30% blasts CTA -- b/l pleural effusions Cr 1.6 LDH -430s Uric acid 9.7 --- down to 4 and then 4.5 after rasburicase. Continue to monitor severely anemic on admission --6.2 --- received PRBCs Transfuse for Hgb <7 s/p rasburicase 6mg IVSS x 1 dose 06/14 f/u G-6 PD continue hydrea 1gbid Monitor for tumor lysis gentle hydration f/u renal/cardio recs regarding diuresis CT a/p -- Rt. > lt. pleural effusions. Hepatosplenomegaly. Perisplenic fluid collection. Diverticulosis an to correlate clinically for diverticulitis ID follow up discussed overall very guarded prognosis with patients sister
[2020-06-18] MEDS: ATORVASTATIN CA 20 MG TABLET (FP) PO SCH (21:19)
[2020-06-18] MEDS: MIRTAZAPINE 15 MG TABLET (FP) PO SCH (21:19)
[2020-06-19] MEDS: ALPRAZolam 0.25 MG TABLET PO SCH (08:59)
[2020-06-19] MEDS: LISINOPRIL 10 MG TABLET PO SCH (08:59)
[2020-06-19] MEDS: ALLOPURINOL 300 MG TABLET (FP) PO SCH (08:59)
[2020-06-19] MEDS: HYDROXYUREA 500 MG CAPSULE PO SCH (08:59)
[2020-06-19] MEDS: METOPROLOL TARTRATE 50 MG TABLET (FP) PO SCH (09:00)
[2020-06-19] MEDS: PANTOPRAZOLE 40 MG TABLET PO SCH (09:00)
[2020-06-19] MEDS: ARTIFICIAL TEARS (POLYVINYL ALCOHOL) OPTH DROPS OU SCH (09:00)
[2020-06-19] MEDS: FAMOTIDINE 10 MG TABLET PO SCH (09:00)
[2020-06-19] MEDS: POLYETHYLENE GLYCOL 3350 119 GM BTL PO SCH (09:05)
[2020-06-19 10:04] LABS: BASO % 2.5 % (0-2.0); EOS % 0.2 % (0-4.5); HEMATOCRIT 23.8 % (35.4-49); MCH 24.7 pg (25.7-33.7); MCHC 29.5 g/dl (32.0-35.9); MEAN CELL VOLUME 83.5 fl (80-96); MEAN PLT VOLUME 10.3 fl (7.5-11.1); MONO % 1.4 % (3.8-10.2); NEUT % 86.9 % (42.8-82.8); PLATELET COUNT 90 K/MM3 (134-434); RBC 2.85 M/mm3 (4.00-5.60); RDW 20.2 % (11.9-15.9)
[2020-06-19 10:26] LABS: POTASSIUM 4.1 mmol/L (3.5-5.1); WHITE BLOOD COUNT 88.1 K/mm3 (4.0-10.0)
[2020-06-19 10:27] LABS: ALBUMIN 2.1 g/dl (3.4-5.0); BILIRUBIN,TOTAL 0.5 mg/dL (0.2-1); BLOOD UREA NITROGEN 43.2 mg/dL (7-18); CALCIUM 8.1 mg/dL (8.5-10.1); CREATININE 1.5 mg/dL (0.55-1.3); N-TERMINAL BNP 2177.6 pg/ml (5-125); TOT PROT 6.3 g/dl (6.4-8.2); URIC ACID 7.1 mg/dL (2.6-7.2)
--- NOTE | 2020-06-19 10:58 | PN ---
Progress Note (short form) - Note Progress Note: PULMONARY OOB TO CHAIR VSS/AFEBRILE GENERAL: Awake, alert, and fully oriented, dyspneic at rest HEAD: Normal with no signs of trauma. EYES: Pupils equal, round and reactive to light, extraocular movements intact LUNGS: Breath sounds equal, decreased at bases, (+) Mild accessory muscle use. HEART: Regular rate and rhythm, normal S1 and S2 ABDOMEN: Softly distended, mild non-specific tenderness, (+) BS, no guarding, no rebound, MUSCULOSKELETAL: No CVA tenderness. UPPER EXTREMITIES: 2+ pulses, warm, multiple ecchymosis of different stages LOWER EXTREMITIES: 2+ pulses, warm, well-perfused. No calf tenderness.2+ pitting edema NEUROLOGICAL: Non-focal LABS/MEDS/NOTES IMAGES REVIEWED Tumor Lysis due to AML Do not suspect PNA Pleural effusion likely related to AML HTN Gout HLD CKD History of CML Supplemental O2 as needed VTE prophylaxis Decitabine per Oncology Monitor off ABX Allopurinol Laxatives Rishi TERAN MD
[2020-06-19] MEDS ORDERED: ALPRAZolam 0.25 MG TABLET PO ONE (11:30)
[2020-06-19] MEDS ORDERED: FUROSEMIDE 40 MG/4 ML INJECTABLE VIAL IVPUSH ONE ×4 (11:35→18:12)
[2020-06-19] MEDS ORDERED: SODIUM CHLORIDE IV ONE (12:00)
[2020-06-19] MEDS ORDERED: DECITABINE IV ONE (12:00)
[2020-06-19] MEDS: ONDANSETRON 4 MG/2 ML VIAL IVPB PRN (12:12)
[2020-06-19 12:17] LABS: ANISOCYTOSIS 1+; MACROCYTOSIS 0; PLATELET ESTIMATE DECREASED
--- NOTE | 2020-06-19 13:51 | PN ---
Progress Note, Physician History of Present Illness: seen and examined today in nad. sitting up in chair comfortable. reports orthopnea when lying in bed. no new complaints - Current Medication List Current Medications: Active Medications Allopurinol (Zyloprim -) 300 mg PO DAILY [facility] Last Admin: 06/19/20 08:59 Dose: 300 mg Documented by: Alprazolam (Xanax -) 0.5 mg PO BID [facility] Artificial Tears (Artificial Tears) 1 drop OU DAILY [facility] Last Admin: 06/19/20 09:00 Dose: 1 drp Documented by: Atorvastatin Calcium (Lipitor -) 20 mg PO HS [facility] Last Admin: 06/18/20 21:19 Dose: 20 mg Documented by: Docusate Sodium (Colace -) 100 mg PO Q8H PRN PRN Reason: CONSTIPATION Last Admin: 06/18/20 14:26 Dose: 100 mg Documented by: Famotidine (Acid Obstetrics Gynecology Physician) 10 mg PO DAILY [facility] Last Admin: 06/19/20 09:00 Dose: 10 mg Documented by: Hydroxyurea (Hydrea -) 1,000 mg PO DAILY [facility] Hydroxyurea (Hydrea -) 500 mg PO [facility] Sodium Chloride (Normal Saline -) 1,000 mls @ 50 mls/hr IV ASDIR [facility] Stop: 06/19/20 14:59 Last Admin: 06/18/20 21:32 Dose: 50 mls/hr Documented by: Lisinopril (Prinivil) 10 mg PO DAILY [facility] Last Admin: 06/19/20 08:59 Dose: 10 mg Documented by: Metoprolol Tartrate (Lopressor -) 50 mg PO DAILY [facility] Last Admin: 06/19/20 09:00 Dose: 50 mg Documented by: Mirtazapine (Remeron -) 7.5 mg PO [facility] Last Admin: 06/18/20 21:19 Dose: 7.5 mg Documented by: Ondansetron HCl (Zofran Injection) 8 mg IVPB Q12H PRN PRN Reason: NAUSEA Last Admin: 06/19/20 12:12 Dose: 8 mg Documented by: Pantoprazole Sodium (Protonix -) 40 mg PO DAILY [facility] Last Admin: 06/19/20 09:00 Dose: 40 mg Documented by: Polyethylene Glycol (Miralax (For Daily Use) -) 17 gm PO BID [facility] Last Admin: 06/19/20 09:05 Dose: 17 gm Documented by: - Objective Vital Signs: Vital Signs Temperature 98.5 F 06/19/20 08:43 Pulse Rate 117 H 06/19/20 11:15 Respiratory Rate 22 H 06/19/20 09:00 Blood Pressure 128/64 06/19/20 08:43 O2 Sat by Pulse Oximetry (%) 96 06/19/20 11:15 Constitutional: Yes: No Distress, Calm Eyes: Yes: Conjunctiva Clear, EOM Intact HENT: Yes: Atraumatic, Normocephalic Neck: Yes: Supple, Trachea Midline Cardiovascular: Yes: Tachycardia, S1, S2. No: Regular Rate and Rhythm, Bradycardia, Pulse Irregular, Bruit, JVD, Gallop, Murmur, Rub, S3, S4, Varicosities Respiratory: Yes: Regular, Diminished, On Nasal O2, Rales. No: Rhonchi, SOB, Wheezes Gastrointestinal: Yes: Normal Bowel Sounds, Soft. No: Distention, Tenderness Extremities: Yes: WNL Edema: Yes Edema: LLE: 2+, RLE: 2+ Peripheral Pulses WNL: Yes Neurological: Yes: Alert Psychiatric: Yes: Alert Labs: CBC, BMP 06/19/20 09:30 06/19/20 09:30 INR, PTT INR 1.31 (0.83-1.09) H 06/14/20 19:20 Fibrinogen > 500.0 mg/dL (238-498) H 06/14/20 19:20 - ....Imaging Chest X-ray: Report Reviewed, Image Reviewed EKG: Report Reviewed, Image Reviewed Other: Report Reviewed, Image Reviewed Assessment/Plan 70M w/hx HTN, HLD, CML with recent development of AML p/w 4 days of worsening shortness of breath. He reports worsening orthopnea alongside bilateral lower extremity swelling for the last 4 days. He reports that he "always has a fast heart rate". He denies palpitations, dizziness or syncope. Exercise tolerance is very poor. He was awaiting chemo. ECG stach lad rbbb. TnI negative. CTA 06/14/20 no PE, bilat effusions R>L admitted to ICU due to risk of tumor lysis syndrome. Hydrea ordered, not given yet due to patient refusal. echo 06/15/20 normal EF. awaiting chemotherapy. IMP: -sinus tachycardia due to AML, severe anemia. -ekg repeated today c/w sinus tach -do not need to medically treat sinus tach primarily with AV leydi blockers. -he is in a high output state. -pulm edema and LE edema likely largely in part due to third spacing -receiving gentle IVF hydration and may need PRBCs -use Lasix as needed, avoid intravascular depletion -no evidence of ACS -no evidence of PE -echo 06/15/20 normal EF. -will follow with you.
--- NOTE | 2020-06-19 14:19 | PN ---
Progress Note, Physician Chief Complaint: AWAKE ALERT ANXIOUS IN BED ON 1:1 WITH STAFF DENIES CHEST PAIN DOES REPORT SOB WHEN LAYING DOWN - Current Medication List Current Medications: Active Medications Allopurinol (Zyloprim -) 300 mg PO DAILY [facility] Last Admin: 06/19/20 08:59 Dose: 300 mg Documented by: Alprazolam (Xanax -) 0.5 mg PO BID [facility] Artificial Tears (Artificial Tears) 1 drop OU DAILY [facility] Last Admin: 06/19/20 09:00 Dose: 1 drp Documented by: Atorvastatin Calcium (Lipitor -) 20 mg PO HS [facility] Last Admin: 06/18/20 21:19 Dose: 20 mg Documented by: Docusate Sodium (Colace -) 100 mg PO Q8H PRN PRN Reason: CONSTIPATION Last Admin: 06/18/20 14:26 Dose: 100 mg Documented by: Famotidine (Acid Human Resources Vice President) 10 mg PO DAILY [facility] Last Admin: 06/19/20 09:00 Dose: 10 mg Documented by: Hydroxyurea (Hydrea -) 1,000 mg PO DAILY [facility] Hydroxyurea (Hydrea -) 500 mg PO [facility] Sodium Chloride (Normal Saline -) 1,000 mls @ 50 mls/hr IV ASDIR [facility] Stop: 06/19/20 14:59 Last Admin: 06/18/20 21:32 Dose: 50 mls/hr Documented by: Lisinopril (Prinivil) 10 mg PO DAILY [facility] Last Admin: 06/19/20 08:59 Dose: 10 mg Documented by: Metoprolol Tartrate (Lopressor -) 50 mg PO DAILY [facility] Last Admin: 06/19/20 09:00 Dose: 50 mg Documented by: Mirtazapine (Remeron -) 7.5 mg PO HS [facility] Last Admin: 06/18/20 21:19 Dose: 7.5 mg Documented by: Ondansetron HCl (Zofran Injection) 8 mg IVPB Q12H PRN PRN Reason: NAUSEA Last Admin: 06/19/20 12:12 Dose: 8 mg Documented by: Pantoprazole Sodium (Protonix -) 40 mg PO DAILY [facility] Last Admin: 06/19/20 09:00 Dose: 40 mg Documented by: Polyethylene Glycol (Miralax (For Daily Use) -) 17 gm PO BID [facility] Last Admin: 06/19/20 09:05 Dose: 17 gm Documented by: - Objective Vital Signs: Vital Signs Temperature 98.5 F 06/19/20 08:43 Pulse Rate 117 H 06/19/20 11:15 Respiratory Rate 22 H 06/19/20 09:00 Blood Pressure 128/64 06/19/20 08:43 O2 Sat by Pulse Oximetry (%) 96 06/19/20 11:15 Constitutional: Yes: Moderate Distress Cardiovascular: Yes: Regular Rate and Rhythm Respiratory: Yes: CTA Bilaterally Gastrointestinal: Yes: Soft, Distention Genitourinary: Yes: WNL, Incontinence Musculoskeletal: Yes: Muscle Weakness Edema: No Integumentary: Yes: Rash Neurological: Yes: Alert Psychiatric: Yes: Other (ANXIOUS) Labs: CBC, BMP 06/19/20 09:30 06/19/20 09:30 INR, PTT INR 1.31 (0.83-1.09) H 06/14/20 19:20 Fibrinogen > 500.0 mg/dL (238-498) H 06/14/20 19:20 Problem List - Problems (1) AML (acute myeloblastic leukemia) Code(s): C92.00 - ACUTE MYELOBLASTIC LEUKEMIA, NOT HAVING ACHIEVED REMISSION (2) CHF (congestive heart failure) Code(s): I50.9 - HEART FAILURE, UNSPECIFIED (3) Palpitations Code(s): R00.2 - PALPITATIONS (4) Shortness of breath Code(s): R06.02 - SHORTNESS OF BREATH Assessment/Plan RESPIRATORY DISTRESS ON BIPAP XANAX PRN MONITOR LABS XRAY CHEST AND ABDOMEN BEDSIDE REVIEWED CT ABDOMEN SHOWS LEFT LUNG EFFUSSION HEPATOMEGALY AND MESENTERICH EDEMA FOR CHF/ABDOMINAL DISTENTION F/U PULMONARYAND ONCOLOGY APPRECIATED H/H 05/20 WILL NEED GENTLE TRANSFUSIONS PRBC
[2020-06-19] MEDS ORDERED: LORazepam 2 MG/ML SDV VIAL IVPB PRN (16:23)
--- NOTE | 2020-06-19 16:29 | PN.HO ---
Progress Note (short form) - Note Progress Note: PAtient seen and examined Was at baseline this morning per nursing staff. At 4pm -- Oriented in person, place But confused. In respiratory distress Was getting PRBCs Wheezing CXR ---progressive congestive changes and pleural effusions AFVSS Cor: RSR, No murmurs, No gallops Lungs: decreased at abses Abd: Soft, Normal bowel sounds, distended,+++ splenomegaly. 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 WBC 198,000. 30% blasts s/p rasburicase 6mg IVSS x 1 dose 8/ G-6 PD -- not deficient C1D5/5 decitabine [place] [address] LDh--200s uric acid 7 CT a/p -- Rt. > lt. pleural effusions. Hepatosplenomegaly. Perisplenic fluid collection. Diverticulosis an to correlate clinically for diverticulitis Resp. distress -- CXR suggestive of progressive congestive changes/effusions Given lasix and transferred to telemetry altered mental status -- ? toxic metabolic this evening patient was noted to have T of 104 Progressive resp. distress. Intubated Concern for tumor lysis LDH increased to 400s/ uric acid 7.6. K trending up Repeated rasburicase 6mg Fluids IV antibiotics Discussed with sister over the phone OVerall guarded prognosis
[2020-06-19] MEDS ORDERED: HALOPERIDOL LACTATE 5 MG/ML IM ONE (16:45)
[2020-06-19] MEDS ORDERED: ceFAZolin 2 GRAM PREMIX BAG IVPB SCH (17:15)
[2020-06-19] MEDS ORDERED: CEFTRIAXONE 2 GM in DEXTROSE 5%-WATER 100 ML IVPB ONE (17:23)
--- NOTE | 2020-06-19 18:14 | PN ---
Progress Note (short form) - Note Progress Note: Problems 1. CKD 2. CML 3. AML 4. pleural effusions 5. htn 6. tumor lysis Active Medications Allopurinol (Zyloprim -) 300 mg PO DAILY [facility] Last Admin: 06/19/20 08:59 Dose: 300 mg Documented by: Artificial Tears (Artificial Tears) 1 drop OU DAILY [facility] Last Admin: 06/19/20 09:00 Dose: 1 drp Documented by: Atorvastatin Calcium (Lipitor -) 20 mg PO HS [facility] Last Admin: 06/18/20 21:19 Dose: 20 mg Documented by: Docusate Sodium (Colace -) 100 mg PO Q8H PRN PRN Reason: CONSTIPATION Last Admin: 06/18/20 14:26 Dose: 100 mg Documented by: Famotidine (Acid Fitter/Welder) 10 mg PO DAILY [facility] Last Admin: 06/19/20 09:00 Dose: 10 mg Documented by: Hydroxyurea (Hydrea -) 1,000 mg PO DAILY [facility] Hydroxyurea (Hydrea -) 500 mg PO [facility] Ceftriaxone Sodium 2 gm/ (Dextrose) 100 mls @ 100 mls/hr IVPB ONCE ONE Stop: 06/19/20 18:22 Lisinopril (Prinivil) 10 mg PO DAILY [facility] Last Admin: 06/19/20 08:59 Dose: 10 mg Documented by: Metoprolol Tartrate (Lopressor -) 50 mg PO DAILY [facility] Last Admin: 06/19/20 09:00 Dose: 50 mg Documented by: Pantoprazole Sodium (Protonix -) 40 mg PO DAILY [facility] Last Admin: 06/19/20 09:00 Dose: 40 mg Documented by: Polyethylene Glycol (Miralax (For Daily Use) -) 17 gm PO BID [facility] Last Admin: 06/19/20 09:05 Dose: 17 gm Documented by: Last Vital Signs Temp Pulse Resp BP Pulse Ox 98.9 F 118 H 22 H 115/55 L 97 06/19/20 14:00 06/19/20 14:00 06/19/20 14:00 06/19/20 14:00 06/19/20 14:00 CBC, BMP 06/19/20 09:30 06/19/20 09:30 IMP- AML Hyponatremia Anemia CKD Plan - cont saline - monitor lytes - lasix prn - oncology follow up - check daily weights - cont allopurinol
[2020-06-19] MEDS ORDERED: DEXTROSE 5%-WATER 100 ML IVPB ONE (18:28)
[2020-06-19] MEDS ORDERED: VANCOMYCIN 1 GRAM (PRE-DOCKED) 1,000 MG/250 ML BAG IVPB ONE (18:40)
[2020-06-19] MEDS ORDERED: DOCUSATE SODIUM 100 MG CAPSULE (FP) PO PRN (19:42)
--- NOTE | 2020-06-19 20:55 | RAPID ---
Physical Examination Vital Signs: Vital Signs Temperature 98.7 F 06/19/20 20:36 Pulse Rate 145 H 06/19/20 20:36 Respiratory Rate 26 H 06/19/20 20:36 Blood Pressure 146/76 06/19/20 20:36 O2 Sat by Pulse Oximetry (%) 95 06/19/20 20:36 Cardiovascular: Yes: Tachycardia Respiratory: Yes: CTA Bilaterally, Other (tachypneic) Labs: CBC, BMP 06/19/20 09:30 06/19/20 09:30 Rapid Response - Rapid Response Assessment: Rapid response called at 5:59pm. Arrived and found patient desaturating to 84%. Placed on Venturi mask. Vitals 125/97, respiratory rate 30, heart rate 131, oxygenation 100% on venturi mask. Patient's desaturation thought to be possibly 2/2 anxiety/panic attack. ECG, CXR, CMP, CBC ordered and patient sent to tele- bed to monitor.
[2020-06-19] MEDS: LORazepam 2 MG/ML SDV VIAL IVPUSH ONE ×2 (21:04→22:30)
[2020-06-19] MEDS ORDERED: HYDROXYUREA 500 MG CAPSULE PO SCH ×2 (22:00)
[2020-06-19] MEDS ORDERED: ALPRAZolam 0.25 MG TABLET PO SCH (22:00)
[2020-06-19 22:05] LABS: MCH 24.8 pg (25.7-33.7); MCHC 29.5 g/dl (32.0-35.9); MEAN CELL VOLUME 84.2 fl (80-96); MEAN PLT VOLUME 10.2 fl (7.5-11.1); PLATELET COUNT 103 K/MM3 (134-434); RBC 3.21 M/mm3 (4.00-5.60); RDW 21.4 % (11.9-15.9)
[2020-06-19 22:18] LABS: WHITE BLOOD COUNT 123.1 K/mm3 (4.0-10.0)
[2020-06-19] MEDS ORDERED: MIDAZOLAM HCL 2 MG/2 ML SINGLE DOSE VIAL IVPUSH PRN (22:24)
[2020-06-19] MEDS ORDERED: CEFEPIME 1 GM in DEXTROSE 5%-WATER 100 ML IVPB ONE (22:26)
--- NOTE | 2020-06-19 22:31 | PROC ---
Intubation - Intubation Reason for Intubation: Respiratory Failure Time of Intubation: 22:31 Intubation Method: orotracheal Blade used: Mac Tube Size (cm): 7.5 Tube position @ lip (cm): 23 Tube position confirmed by: CO2 detector, Breath sounds Breath Sounds after Intubation: equal Post Intubation Xray: Yes (ordered)
[2020-06-19] MEDS ORDERED: MIDAZOLAM HCL 2 MG/2 ML SINGLE DOSE VIAL ONE (22:32)
[2020-06-19 22:37] LABS: ALBUMIN 2.4 g/dl (3.4-5.0); BILIRUBIN,TOTAL 0.5 mg/dL (0.2-1); BLOOD UREA NITROGEN 49.3 mg/dL (7-18); CALCIUM 8.5 mg/dL (8.5-10.1); CREATININE 1.7 mg/dL (0.55-1.3); POTASSIUM 4.9 mmol/L (3.5-5.1)
[2020-06-19 22:50] LABS: URIC ACID 7.6 mg/dL (2.6-7.2)
[2020-06-19 22:53] LABS: LDH 443 U/L (87-246)
[2020-06-19] MEDS ORDERED: RASBURICASE 6 MG in SODIUM CHLORIDE 50 ML IVPB ONE (23:02)
[2020-06-19] MEDS ORDERED: SODIUM CHLORIDE 1,000 ML IV SCH ×2 (23:15)
--- NOTE | 2020-06-19 23:22 | PN ---
Progress Note (short form) - Note Progress Note: Pulm/CCM F/u note Seen and examined on floor and ICU 24HR events Seen by Dr Martinez today, this afternoon acutely worsened with increase work of breathing, fever. Started on broad spectrum abx, attempted diuresis for volume overload and effusions and trial of NIVPPV. However pt spiked as high as 104.4, had progressive respiratory failure and was brought to ICU for intubation and further care. Discussed with Dr Galindo given concern for worsening tumor lysis syndrome. Started on Rasburicase and IVF. Pt successfully intubated. Vital Signs Temp 104.7 F H 06/19/20 21:13 Pulse 138 H 06/19/20 22:31 Resp 20 06/19/20 22:31 BP 142/68 06/19/20 21:13 Pulse Ox 100 06/19/20 22:31 Intake & Output 06/18/20 06/19/20 06/19/20 23:59 11:59 23:59 Intake Total 882 148 6510 Output Total 180 Balance 238 573 5776 Weight 87.271 kg Intake: IV 700 500 450 Decitabine 41 mg In 100 100 Normal Saline - 100 ml @ 108.2 mls/hr IV ONCE ONE Rx#:[id number] Normal Saline - 1,000 ml 600 500 350 @ 50 mls/hr IV ASDIR [facility] Rx#:[id number] IVPB 50 Oral 250 Packed Cells 260 Output: Urine 180 Void 180 Other: Voiding Method Toilet Toilet Urinal # Unmeasured Voids Void 4 5 3 Bowel Movement Yes No Weight Measurement Method Standing Scale Laboratory Results - last 24 hr 06/17/20 06/19/20 06/19/20 13:45 09:30 09:30 WBC 88.1 H* RBC 2.85 L Hgb 7.0 L Hct 23.8 L MCV 83.5 MCH 24.7 L MCHC 29.5 L RDW 20.2 H Plt Count 90 L MPV 10.3 Absolute Neuts (auto) 76.5 H Neutrophils % 86.9 H D Neutrophils % (Manual) 54.1 Band Neutrophils % 2.0 Lymphocytes % 9.0 Lymphocytes % (Manual) 5.1 L D Monocytes % 1.4 L D Monocytes % (Manual) 10 Eosinophils % 0.2 Eosinophils % (Manual) 0.0 D Basophils % 2.5 H Basophils % (Manual) 1.0 Myelocytes % (Man) 3 H D Promyelocytes % (Man) 1 Blast Cells % (Manual) 18 H D Nucleated RBC % 2 H Metamyelocytes 0 D Hypochromia 0 Platelet Estimate Decreased Polychromasia 1+ Poikilocytosis 0 Anisocytosis 1+ Microcytosis 1+ Macrocytosis 0 Spherocytes 2+ Sodium 133 L Potassium 4.1 Chloride 101 Carbon Dioxide 22 Anion Gap 11 BUN 43.2 H Creatinine 1.5 H Est GFR (CKD-EPI)AfAm 53.52 Est GFR (CKD-EPI)NonAf 46.17 Random Glucose 138 H Uric Acid 7.1 Calcium 8.1 L Total Bilirubin 0.5 AST 36 ALT 11 L Alkaline Phosphatase 242 H LD Total 272 H Troponin I B-Natriuretic Peptide 2177.6 H Total Protein 6.3 L Albumin 2.1 L Blood Type O POSITIVE Antibody Screen Negative Crossmatch See Detail 06/19/20 06/19/20 06/19/20 21:36 21:36 21:36 WBC 123.1 H* RBC 3.21 L Hgb 8.0 L Hct 27.0 L MCV 84.2 MCH 24.8 L MCHC 29.5 L RDW 21.4 H Plt Count 103 L MPV 10.2 Absolute Neuts (auto) Neutrophils % No Result Required. Neutrophils % (Manual) Band Neutrophils % Lymphocytes % No Result Required. Lymphocytes % (Manual) Monocytes % Monocytes % (Manual) Eosinophils % Eosinophils % (Manual) Basophils % Basophils % (Manual) Myelocytes % (Man) Promyelocytes % (Man) Blast Cells % (Manual) Nucleated RBC % 0 Metamyelocytes Hypochromia Platelet Estimate Polychromasia Poikilocytosis Anisocytosis Microcytosis Macrocytosis Spherocytes Sodium 132 L Potassium 4.9 Chloride 100 Carbon Dioxide 22 Anion Gap 10 BUN 49.3 H Creatinine 1.7 H Est GFR (CKD-EPI)AfAm 46.00 Est GFR (CKD-EPI)NonAf 39.69 Random Glucose 118 H Uric Acid 7.6 H Calcium 8.5 Total Bilirubin 0.5 AST 54 H ALT 12 L Alkaline Phosphatase 310 H LD Total 443 H Troponin I < 0.02 B-Natriuretic Peptide Total Protein 7.0 Albumin 2.4 L Blood Type Antibody Screen Crossmatch PE: Gen: toxic appearing man in respiratory distress HEENT: slight oral mucosa bleeding, dry. PERRL PULM: tachypneic, accessory muscle use, no wheezes CV: tachy, no m/r/g appreciated ABD: soft, protuberant, hypoactive BS EXT: + edema, bruising Neuro:grossly intact, MAEx 4 A/ 70 y/o man with AML, recent chemo c/b tumor lysis and volume overload now with hypoxic respiratory failure P/ -full mechanical ventilatory support -Lung protective ventilation strategies -sedation and parlalysis as need for vent synchrony, versed and fentanyl for now -Vanco and Cefepime for now -cxl pending -spoke at length with Dr Galindo regarding deterioration, adding rasburicase and cont allopurinol and IVF -scd for dvt prophylaxis -famotidine for GI proph Mary ACNP 4436 45min CCT
[2020-06-19 23:28] LABS: ANISOCYTOSIS 2+; MACROCYTOSIS 0; PLATELET ESTIMATE DECREASED
[2020-06-19 23:44] LABS: ARTERIAL BLD GAS O2 SATURATION 88.6 mmHg (95-98); ARTERIAL BLOOD GAS BASE EXCESS -6.4 mmol/L (-2-2); ARTERIAL BLOOD GAS PO2 64.2 mmHg (80-100); ARTERIAL BLOOD GAS pH 7.239 (7.350-7.450)
[2020-06-19] MEDS: FENTANYL IVPB 500 MCG/100 ML BAG IVPB SCH (23:45)
[2020-06-19 23:53] LABS: VENT MODE A/C
[2020-06-19 23:54] LABS: VENT RATE 20
[2020-06-20] MEDS ORDERED: SODIUM CHLORIDE 0.9% 500 ML INFUS.BAG IV ONE (00:14)
[2020-06-20] MEDS ORDERED: DEXTROSE 5%-WATER 100 ML IVPB ONE (00:22)
[2020-06-20] MEDS ORDERED: CEFEPIME HCL 1 GM VIAL (RESTRICTED TO ID) ONE (00:22)
[2020-06-20] MEDS: POLYETHYLENE GLYCOL 3350 119 GM BTL PO SCH ×3 (00:25→21:09)
[2020-06-20] MEDS: ATORVASTATIN CA 20 MG TABLET (FP) PO SCH ×2 (00:26→21:09)
[2020-06-20] MEDS ORDERED: NOREPINEPHRINE BITARTRATE 4,000 MCG in DEXTROSE 5%-WATER - 496 ML IV SCH (00:30)
[2020-06-20] MEDS: PROPOFOL 1,000,000 MCG/100 ML VIAL IVPB SCH ×2 (00:40→12:06)
[2020-06-20] MEDS ORDERED: RAPID SEQUENCE INTUBATION KIT NR ONE (01:07)
[2020-06-20 06:43] LABS: BASO % 1.1 % (0-2.0); EOS % 0.2 % (0-4.5); HEMATOCRIT 23.3 % (35.4-49); LYMPH % 9.7 % (8-40); MCH 25.1 pg (25.7-33.7); MCHC 29.7 g/dl (32.0-35.9); MEAN CELL VOLUME 84.6 fl (80-96); MEAN PLT VOLUME 10.6 fl (7.5-11.1); MONO % 32.9 % (3.8-10.2); NEUT % 56.1 % (42.8-82.8); PLATELET COUNT 107 K/MM3 (134-434); RBC 2.75 M/mm3 (4.00-5.60)
[2020-06-20 06:46] LABS: WHITE BLOOD COUNT 141.4 K/mm3 (4.0-10.0)
[2020-06-20 06:47] LABS: HEMOGLOBIN 6.9 GM/dL (11.7-16.9)
[2020-06-20 07:06] LABS: ALBUMIN 1.9 g/dl (3.4-5.0); BILIRUBIN,TOTAL 0.4 mg/dL (0.2-1); CALCIUM 7.9 mg/dL (8.5-10.1); CREATININE 2.3 mg/dL (0.55-1.3); MAGNESIUM 2.3 mg/dL (1.8-2.4); PHOSPHOROUS 7.9 mg/dL (2.5-4.9); POTASSIUM 5.1 mmol/L (3.5-5.1); URIC ACID 5.8 mg/dL (2.6-7.2)
[2020-06-20] MEDS: VASOPRESSIN 40 UNITS in SODIUM CHLORIDE 98 ML IVPB SCH (07:49)
[2020-06-20] MEDS: ACETAMINOPHEN 1000 MG/100 ML VIAL (NON FORMULARY) IVPB PRN ×2 (08:45→18:01)
[2020-06-20] MEDS ORDERED: ALBUMIN HUMAN 25% 12.5 GM/50 ML VIAL IVPB ONE (09:00)
[2020-06-20] MEDS: HYDROCORTISONE SOD SUCCINATE 100 MG/2 ML VIAL IVPUSH SCH ×4 (09:12→21:08)
--- NOTE | 2020-06-20 09:34 | PN ---
Progress Note, Physician Chief Complaint: INTUBATED ON VENT SUPPORT EVENTS OVERNIGHT REVIEWED - Current Medication List Current Medications: Active Medications Acetaminophen (Ofirmev Injection -) 1,000 mg IVPB Q6H PRN PRN Reason: FEVER Stop: 06/20/20 23:06 Last Admin: 06/20/20 08:45 Dose: 1,000 mg Documented by: Allopurinol (Zyloprim -) 300 mg PO DAILY [facility] Artificial Tears (Artificial Tears) 1 drop OU DAILY [facility] Atorvastatin Calcium (Lipitor -) 20 mg PO HS [facility] Last Admin: 06/20/20 00:26 Dose: Not Given Documented by: Docusate Sodium (Colace -) 100 mg PO Q8H PRN PRN Reason: CONSTIPATION Famotidine (Acid Certified Medical Biller) 10 mg PO DAILY [facility] Fentanyl (Sublimaze Injection -) 50 mcg IVPUSH Q1H PRN PRN Reason: PAIN Stop: 06/20/20 22:22 Last Admin: 06/20/20 00:18 Dose: 50 mcg Documented by: Hydrocortisone Sodium Succinate (Solu-Cortef -) 50 mg IVPUSH Q6H-IV [facility] Last Admin: 06/20/20 09:12 Dose: 50 mg Documented by: Sodium Chloride (Normal Saline -) 1,000 mls @ 100 mls/hr IV ASDIR [facility] Stop: 06/20/20 23:07 Last Admin: 06/20/20 00:09 Dose: 100 mls/hr Documented by: Fentanyl (Sublimaze Ivpb) 500 mcg in 100 mls @ 20 mls/hr IVPB TITR [facility] Last Admin: 06/19/20 23:45 Dose: 100 mcg/hr, 20 mls/hr Documented by: Propofol (Diprivan -) 1,000,000 mcg in 100 mls @ 2.618 mls/hr IVPB TITR [facility]; Protocol Last Titration: 06/20/20 07:41 Dose: 20 mcg/kg/min, 10.473 mls/hr Documented by: Vasopressin 40 units/ Sodium (Chloride) 100 mls @ 5 mls/hr IVPB ASDIR [facility]; Protocol Last Admin: 06/20/20 07:49 Dose: 2 units/hr, 5 mls/hr Documented by: Norepinephrine Bitartrate 16, (000 mcg/ Sodium Chloride) 500 mls @ 9.375 mls/hr IV TITR [facility]; Protocol Lisinopril (Prinivil) 10 mg PO DAILY [facility] Metoprolol Tartrate (Lopressor -) 50 mg PO DAILY [facility] Midazolam HCl (Versed -) 2 mg IVPUSH Q2H PRN PRN Reason: AGITATION Last Admin: 06/20/20 00:17 Dose: 2 mg Documented by: Pantoprazole Sodium (Protonix -) 40 mg PO DAILY [facility] Polyethylene Glycol (Miralax (For Daily Use) -) 17 gm PO BID [facility] Last Admin: 06/20/20 00:25 Dose: Not Given Documented by: - Objective Vital Signs: Vital Signs Temperature 104 F H 06/20/20 09:00 Pulse Rate 115 H 06/20/20 09:00 Respiratory Rate 20 06/20/20 09:00 Blood Pressure 105/54 L 06/20/20 09:00 O2 Sat by Pulse Oximetry (%) 96 06/20/20 09:00 Constitutional: Yes: Moderate Distress Cardiovascular: Yes: Tachycardia Respiratory: Yes: Diminished, Mechanically Ventilated Gastrointestinal: Yes: Soft, Distention Genitourinary: Yes: Vazquez Present Musculoskeletal: Yes: Muscle Weakness Labs: CBC, BMP 06/20/20 06:00 06/20/20 06:00 INR, PTT INR 1.31 (0.83-1.09) H 06/14/20 19:20 Fibrinogen > 500.0 mg/dL (238-498) H 06/14/20 19:20 Problem List - Problems (1) AML (acute myeloblastic leukemia) Code(s): C92.00 - ACUTE MYELOBLASTIC LEUKEMIA, NOT HAVING ACHIEVED REMISSION (2) CHF (congestive heart failure) Code(s): I50.9 - HEART FAILURE, UNSPECIFIED (3) Palpitations Code(s): R00.2 - PALPITATIONS (4) Shortness of breath Code(s): R06.02 - SHORTNESS OF BREATH Assessment/Plan VENT SUPPORT PULM EVAL APPRECIATED IV ABX PER ID TRANSFUSE PRBC ONCOLOGY F/U VAZQUEZ IN PLACE POOR OVERALL PROGNOSIS
[2020-06-20] MEDS ORDERED: LISINOPRIL 10 MG TABLET PO SCH (10:00)
[2020-06-20] MEDS ORDERED: PANTOPRAZOLE 40 MG TABLET PO SCH (10:00)
[2020-06-20] MEDS ORDERED: HYDROXYUREA 500 MG CAPSULE PO SCH ×2 (10:00)
[2020-06-20] MEDS ORDERED: METOPROLOL TARTRATE 50 MG TABLET (FP) PO SCH (10:00)
[2020-06-20] MEDS: NOREPINEPHRINE BITARTRATE 16,000 MCG in SODIUM CHLORIDE 484 ML IV SCH (10:29)
--- NOTE | 2020-06-20 10:30 | PN ---
Progress Note (short form) - Note Progress Note: asked to re-evaluate by diplomatic interpreter this am chart reviewed s/p chemo 06/15 to 06/19 transfusion yesterday developed confusion yesterday evening and wheezing transferred to telemetry and given lasix later febrile to 104 transferred to ICU and intubated given vanco ceftriaxone and cefepime now on pressors decreased urine output sedated and intubated fi02 50% Vital Signs Period Temp Pulse Resp BP Sys/Carrillo Pulse Ox Last 24 Hr 98.7 F-104.7 F 115-158 19-35 76-146/39-97 91-100 cor-rrr lungs decreased bs at bases both arms extensive ecchymoses, left arm with midline abd protuberant, soft ext no edema waters CBC, BMP 06/20/20 06:00 06/20/20 06:00 Microbiology 06/14/20 01:10 Blood - Peripheral Venous Blood Culture - Final NO GROWTH AFTER 5 DAYS INCUBATION 06/14/20 01:10 Blood - Peripheral Venous Blood Culture - Final NO GROWTH AFTER 5 DAYS INCUBATION 06/14/20 01:10 Urine - Urine Clean Catch Urine Culture - Final Staphylococcus Haemolyticus Group D Strep Or Entero Coccus a/p fevers- not neutropenic resp failure AML s/p chemo worsening renal failure tumorlysis syndrome anemia thrombocytopenia pen allergy gaviria culture sputum/blood/urine vancomycin by levels check level now and redose less then 15 continue cefepime adjsuted for renal failure d/w dr manuel d/w diplomatic interpreter over 35 minutes spent in the care of this critically ill icu patient Problem List - Problems (1) AML (acute myeloblastic leukemia) Code(s): C92.00 - ACUTE MYELOBLASTIC LEUKEMIA, NOT HAVING ACHIEVED REMISSION (2) Shortness of breath Code(s): R06.02 - SHORTNESS OF BREATH
[2020-06-20] MEDS: FAMOTIDINE 10 MG TABLET PO SCH (10:44)
[2020-06-20] MEDS: FENTANYL IVPB 500 MCG/100 ML BAG IVPB SCH ×3 (11:00→23:47)
[2020-06-20 11:12] LABS: ANISOCYTOSIS 2+; MACROCYTOSIS 1+; PLATELET ESTIMATE DECREASED
[2020-06-20] MEDS ORDERED: SODIUM CHLORIDE 1,000 ML IV SCH (11:31)
--- NOTE | 2020-06-20 12:11 | PN ---
Progress Note (short form) - Note Progress Note: Pulm/CCM Seen and examined in ICU. Patient was intubated overnight, sedated with pressor support. Hgb of 6.9 today am, 1 unit of PRBC ordered. No active source of bleed ing noted, no melena, no bloody secretions from NGT Vent: 480/20/50%/+5, on Fentanyl and Versed, RASS-3 Vital Signs Period Temp Pulse Resp BP Sys/Carrillo Pulse Ox Last 24 Hr 98.7 F-104.7 F 99-158 19-35 76-146/39-97 91-100 ABG Results ABG pH 7.239 (7.350-7.450) L 06/19/20 23:25 ABG HCO3 20.7 mmol/L (22-27) L 06/19/20 23:25 ABG O2 Sat (Measured) 88.6 mmHg (95-98) L 06/19/20 23:25 ABG O2 Content No Result Required. 06/19/20 23:25 ABG Base Excess -6.4 mmol/L (-2-2) L 06/19/20 23:25 Active Medications Acetaminophen (Ofirmev Injection -) 1,000 mg IVPB Q6H PRN PRN Reason: FEVER Stop: 06/20/20 23:06 Last Admin: 06/20/20 08:45 Dose: 1,000 mg Documented by: Allopurinol (Zyloprim -) 300 mg PO DAILY [facility] Last Admin: 06/20/20 12:12 Dose: 300 mg Documented by: Artificial Tears (Artificial Tears) 1 drop OU DAILY [facility] Atorvastatin Calcium (Lipitor -) 20 mg PO HS [facility] Last Admin: 06/20/20 00:26 Dose: Not Given Documented by: Docusate Sodium (Colace -) 100 mg PO Q8H PRN PRN Reason: CONSTIPATION Famotidine (Acid Legal Billing Coordinator) 10 mg PO DAILY [facility] Last Admin: 06/20/20 10:44 Dose: Not Given Documented by: Fentanyl (Sublimaze Injection -) 50 mcg IVPUSH Q1H PRN PRN Reason: PAIN Stop: 06/20/20 22:22 Last Admin: 06/20/20 00:18 Dose: 50 mcg Documented by: Hydrocortisone Sodium Succinate (Solu-Cortef -) 50 mg IVPUSH Q6H-IV [facility] Last Admin: 06/20/20 09:12 Dose: 50 mg Documented by: Fentanyl (Sublimaze Ivpb) 500 mcg in 100 mls @ 20 mls/hr IVPB TITR [facility] Last Admin: 06/20/20 11:00 Dose: 100 mcg/hr, 20 mls/hr Documented by: Propofol (Diprivan -) 1,000,000 mcg in 100 mls @ 2.618 mls/hr IVPB TITR [facility]; Protocol Last Admin: 06/20/20 12:06 Dose: 20 mcg/kg/min, 10.473 mls/hr Documented by: Vasopressin 40 units/ Sodium (Chloride) 100 mls @ 5 mls/hr IVPB ASDIR [facility]; Protocol Last Titration: 06/20/20 10:31 Dose: 4 units/hr, 10 mls/hr Documented by: Norepinephrine Bitartrate 16, (000 mcg/ Sodium Chloride) 500 mls @ 9.375 mls/hr IV TITR [facility]; Protocol Last Titration: 06/20/20 11:02 Dose: 27 mcg/min, 50.625 mls/hr Documented by: Cefepime HCl 2 gm/ Dextrose 100 mls @ 100 mls/hr IVPB BID [facility]; Protocol Sodium Chloride (Normal Saline -) 1,000 mls @ 125 mls/hr IV ASDIR [facility] Stop: 06/20/20 23:07 Last Admin: 06/20/20 11:43 Dose: 125 mls/hr Documented by: Lisinopril (Prinivil) 10 mg PO DAILY [facility] Last Admin: 06/20/20 10:45 Dose: Not Given Documented by: Metoprolol Tartrate (Lopressor -) 50 mg PO DAILY [facility] Last Admin: 06/20/20 10:45 Dose: Not Given Documented by: Midazolam HCl (Versed -) 2 mg IVPUSH Q2H PRN PRN Reason: AGITATION Last Admin: 06/20/20 00:17 Dose: 2 mg Documented by: Pantoprazole Sodium (Protonix Iv) 40 mg IVPUSH DAILY [facility] Polyethylene Glycol (Miralax (For Daily Use) -) 17 gm PO BID [facility] Last Admin: 06/20/20 10:45 Dose: Not Given Documented by: Intake & Output 06/17/20 06/18/20 06/19/20 06/20/20 23:59 23:59 23:59 23:59 Intake Total 308 1050 1510 2366 Output Total 100 180 50 Balance 208 1050 1330 2316 Weight 83.824 kg 85.729 kg 87.271 kg 87.2 kg CBC, BMP 06/20/20 06:00 06/20/20 06:00 PE: Gen: toxic appearing HEENT: slight oral mucosa bleeding, dry. PERRL PULM: intubated, b/l rhonchi CV: tachy, no m/r/g appreciated ABD: soft, protuberant, hypoactive BS EXT: + edema, bruising Neuro: intubated, sedated Intake & Output 06/17/20 06/18/20 06/19/20 06/20/20 23:59 23:59 23:59 23:59 Intake Total 308 1050 1510 2366 Output Total 100 180 50 Balance 208 1050 1330 2316 Weight 83.824 kg 85.729 kg 87.271 kg 87.2 kg A/ 70 y/o man with AML, recent chemo c/b tumor lysis and volume overload now with hypoxic respiratory failure Acute respiratory failure 2/2 volume overload TLS Fevers 2/2 Sepsis unknown etiology Anemia Thrombocytopenia CML-->AML P/ -full mechanical ventilatory support -Lung protective ventilation strategies -sedation as needed for vent synchrony, versed and fentanyl -Tylenol IV for fevers -Titrate Norepinephrine and vasopressin, keep MAP >65 -Vanco by level -Cefepime -ID recs appreciated -Follow gaviria cultures -Stress dose steroids -Strict I/Os -Albumin 25 g 25% x1 for decreased urine output (made only 50 ml overnight) -Trend and replete lytes, keep Mg>2, K>4 -Renal recs appreciated -Monitor TLS labs q 8 hours -Dr Josie porter, appreciate recs -scd for dvt prophylaxis -Transfuse for Hgb <7, Plt <10, 1 unit PRBC today, repeat CBC one hour after blood transfusion -PPI for PUD ppx -Continue TF Alicia Pulido ACNP [id number]
[2020-06-20] MEDS: ALLOPURINOL 300 MG TABLET (FP) PO SCH (12:12)
[2020-06-20] MEDS ORDERED: PANTOPRAZOLE SODIUM 40 MG VIAL IVPUSH ONE (12:14)
[2020-06-20 12:23] LABS: EPI CELLS >36 /uL (0-25.1); HYALINE CASTS 67 /uL (0-3.1); URINE APPEARANCE TURBID; URINE BILIRUBIN 1+ (NEGATIVE); URINE COLOR DK YELLOW; URINE GLUCOSE (UA) NEGATIVE (NEGATIVE); URINE KETONE NEGATIVE (NEGATIVE); URINE LEUK ESTERASE 1+ (NEGATIVE); URINE NITRITE NEGATIVE (NEGATIVE); URINE PROTEIN 2+ (NEGATIVE); URINE RBC 12 /uL (0-23.9); URINE WBC 131 /uL (0-25.8)
[2020-06-20 12:38] LABS: URINE BACTERIA 9.5 /uL (0-1359)
[2020-06-20] MEDS ORDERED: PT OWN MED DRAWER 7, Y5N ONE (12:56)
[2020-06-20] MEDS: ARTIFICIAL TEARS (POLYVINYL ALCOHOL) OPTH DROPS OU SCH (12:57)
[2020-06-20] MEDS: CEFEPIME 2 GM in DEXTROSE 5%-WATER 100 ML IVPB SCH ×2 (12:57→22:30)
--- NOTE | 2020-06-20 14:56 | PN ---
Progress Note, Physician History of Present Illness: Intubated for respiratory failure/hypoxia. fever. transferred to ICU. remains intubated, sedated. - Current Medication List Current Medications: Active Medications Acetaminophen (Ofirmev Injection -) 1,000 mg IVPB Q6H PRN PRN Reason: FEVER Stop: 06/20/20 23:06 Last Admin: 06/20/20 08:45 Dose: 1,000 mg Documented by: Allopurinol (Zyloprim -) 300 mg PO DAILY ERMELINDA Last Admin: 06/20/20 12:12 Dose: 300 mg Documented by: Artificial Tears (Artificial Tears) 1 drop OU DAILY ERMELINDA Last Admin: 06/20/20 12:57 Dose: 1 drop Documented by: Atorvastatin Calcium (Lipitor -) 20 mg PO HS ERMELINDA Last Admin: 06/20/20 00:26 Dose: Not Given Documented by: Docusate Sodium (Colace -) 100 mg PO Q8H PRN PRN Reason: CONSTIPATION Famotidine (Acid Pick Up) 10 mg PO DAILY ERMELINDA Last Admin: 06/20/20 10:44 Dose: Not Given Documented by: Fentanyl (Sublimaze Injection -) 50 mcg IVPUSH Q1H PRN PRN Reason: PAIN Stop: 06/20/20 22:22 Last Admin: 06/20/20 00:18 Dose: 50 mcg Documented by: Hydrocortisone Sodium Succinate (Solu-Cortef -) 50 mg IVPUSH Q6H-IV ERMELINDA Last Admin: 06/20/20 14:47 Dose: 50 mg Documented by: Fentanyl (Sublimaze Ivpb) 500 mcg in 100 mls @ 20 mls/hr IVPB TITR [facility] Last Admin: 06/20/20 11:00 Dose: 100 mcg/hr, 20 mls/hr Documented by: Propofol (Diprivan -) 1,000,000 mcg in 100 mls @ 2.618 mls/hr IVPB TITR [facility]; Protocol Last Admin: 06/20/20 12:06 Dose: 20 mcg/kg/min, 10.473 mls/hr Documented by: Vasopressin 40 units/ Sodium (Chloride) 100 mls @ 5 mls/hr IVPB ASDIR ERMELINDA; Protocol Last Titration: 06/20/20 10:31 Dose: 4 units/hr, 10 mls/hr Documented by: Norepinephrine Bitartrate 16, (000 mcg/ Sodium Chloride) 500 mls @ 9.375 mls/hr IV TITR ERMELINDA; Protocol Last Titration: 06/20/20 13:30 Dose: 25 mcg/min, 46.875 mls/hr Documented by: Cefepime HCl 2 gm/ Dextrose 100 mls @ 100 mls/hr IVPB BID ERMELINDA; Protocol Last Admin: 06/20/20 12:57 Dose: 100 mls/hr Documented by: Sodium Chloride (Normal Saline -) 1,000 mls @ 125 mls/hr IV ASDIR ERMELINDA Stop: 06/20/20 23:07 Last Admin: 06/20/20 11:43 Dose: 125 mls/hr Documented by: Midazolam HCl (Versed -) 2 mg IVPUSH Q2H PRN PRN Reason: AGITATION Last Admin: 06/20/20 00:17 Dose: 2 mg Documented by: Pantoprazole Sodium (Protonix Iv) 40 mg IVPUSH DAILY [facility] Polyethylene Glycol (Miralax (For Daily Use) -) 17 gm PO BID ERMELINDA Last Admin: 06/20/20 10:45 Dose: Not Given Documented by: - Objective Vital Signs: Vital Signs Temperature 101.2 F H 06/20/20 13:00 Pulse Rate 94 H 06/20/20 13:00 Respiratory Rate 19 06/20/20 13:00 Blood Pressure 112/57 L 06/20/20 13:00 O2 Sat by Pulse Oximetry (%) 98 06/20/20 13:00 Constitutional: Yes: Calm Eyes: Yes: Conjunctiva Clear HENT: Yes: Atraumatic Cardiovascular: Yes: Tachycardia, S1, S2. No: Regular Rate and Rhythm, Bradycardia, Pulse Irregular, Bruit, JVD, Gallop, Murmur, Rub, S3, S4, Varicosities Respiratory: Yes: Regular, Diminished, Intubated, Mechanically Ventilated, Rales, Rhonchi. No: Wheezes Gastrointestinal: Yes: Normal Bowel Sounds, Soft Edema: Yes Peripheral Pulses WNL: Yes Neurological: No: Alert, Oriented Psychiatric: No: Alert, Oriented Labs: CBC, BMP 06/20/20 06:00 06/20/20 06:00 INR, PTT INR 1.31 (0.83-1.09) H 06/14/20 19:20 Fibrinogen > 500.0 mg/dL (238-498) H 06/14/20 19:20 - ....Imaging Chest X-ray: Report Reviewed, Image Reviewed EKG: Report Reviewed, Image Reviewed Other: Report Reviewed, Image Reviewed (tele-sinus tach) Assessment/Plan 70M w/hx HTN, HLD, CML with recent development of AML p/w 4 days of worsening shortness of breath. He reports worsening orthopnea alongside bilateral lower extremity swelling for the last 4 days. He reports that he "always has a fast heart rate". He denies palpitations, dizziness or syncope. Exercise tolerance is very poor. He was awaiting chemo. ECG stach lad rbbb. TnI negative. CTA 06/14/20 no PE, bilat effusions R>L admitted to ICU due to risk of tumor lysis syndrome. Hydrea ordered, not given yet due to patient refusal. echo 06/15/20 normal EF. awaiting chemotherapy. IMP: -sinus tachycardia due to AML, severe anemia. -Hypoxic respiratory failure -Fever -TLS -decreased urine output -3rd spacing due to hypoalbuminemia -echo 06/15/20 normal EF. -receiving IVF hydration for TLS -receiving PRBCs -use Lasix as needed, avoid intravascular depletion -no evidence of ACS -no evidence of PE -will follow with you.
[2020-06-20 15:36] LABS: HEMATOCRIT 26.1 % (35.4-49); HEMOGLOBIN 7.6 GM/dL (11.7-16.9); MCH 24.9 pg (25.7-33.7); MCHC 29.1 g/dl (32.0-35.9); MEAN CELL VOLUME 85.6 fl (80-96); MEAN PLT VOLUME 10.5 fl (7.5-11.1); PLATELET COUNT 90 K/MM3 (134-434); RBC 3.05 M/mm3 (4.00-5.60); RDW 20.7 % (11.9-15.9)
[2020-06-20 15:45] LABS: WHITE BLOOD COUNT 139.4 K/mm3 (4.0-10.0)
[2020-06-20 15:54] LABS: ALBUMIN 2.2 g/dl (3.4-5.0); BILIRUBIN,TOTAL 0.7 mg/dL (0.2-1); BLOOD UREA NITROGEN 57.9 mg/dL (7-18); CALCIUM 7.6 mg/dL (8.5-10.1); CREATININE 2.5 mg/dL (0.55-1.3); PHOSPHOROUS 8.7 mg/dL (2.5-4.9); TOT PROT 6.4 g/dl (6.4-8.2); URIC ACID 4.9 mg/dL (2.6-7.2)
[2020-06-20 16:01] LABS: POTASSIUM 6.1 mmol/L (3.5-5.1)
[2020-06-20] MEDS ORDERED: SODIUM BICARBONATE 8.4% 50 MEQ/50 ML DISP.SYRIN IVPUSH ONE (16:03)
[2020-06-20] MEDS ORDERED: INSULIN REGULAR HUMAN 100 UNITS/ML *VIAL IVPUSH ONE (16:03)
[2020-06-20] MEDS ORDERED: DEXTROSE 50%-WATER - 25 GM/50 ML VIAL IVPUSH ONE (16:03)
[2020-06-20] MEDS ORDERED: FENTANYL NS IVPB 500 MCG/100 ML BAG IVPB ONE (16:09)
[2020-06-20] MEDS ORDERED: DEXTROSE 50%-WATER 25 GM/50 ML DISP.SYRIN ONE (16:17)
[2020-06-20] MEDS ORDERED: SODIUM CHLORIDE 250 ML IV PRN (16:33)
--- NOTE | 2020-06-20 16:58 | PN ---
Progress Note (short form) - Note Progress Note: Problems 1. CKD 2. CML 3. AML 4. pleural effusions 5. htn 6. tumor lysis Active Medications Acetaminophen (Ofirmev Injection -) 1,000 mg IVPB Q6H PRN PRN Reason: FEVER Stop: 06/20/20 23:06 Last Admin: 06/20/20 08:45 Dose: 1,000 mg Documented by: Allopurinol (Zyloprim -) 300 mg PO DAILY ERMELINDA Last Admin: 06/20/20 12:12 Dose: 300 mg Documented by: Artificial Tears (Artificial Tears) 1 drop OU DAILY ERMELINDA Last Admin: 06/20/20 12:57 Dose: 1 drop Documented by: Atorvastatin Calcium (Lipitor -) 20 mg PO HS ERMELINDA Last Admin: 06/20/20 00:26 Dose: Not Given Documented by: Docusate Sodium (Colace -) 100 mg PO Q8H PRN PRN Reason: CONSTIPATION Famotidine (Acid Capture Manager) 10 mg PO DAILY ERMELINDA Last Admin: 06/20/20 10:44 Dose: Not Given Documented by: Fentanyl (Sublimaze Injection -) 50 mcg IVPUSH Q1H PRN PRN Reason: PAIN Stop: 06/20/20 22:22 Last Admin: 06/20/20 00:18 Dose: 50 mcg Documented by: Hydrocortisone Sodium Succinate (Solu-Cortef -) 50 mg IVPUSH Q6H-IV ERMELINDA Last Admin: 06/20/20 14:47 Dose: 50 mg Documented by: Fentanyl (Sublimaze Ivpb) 500 mcg in 100 mls @ 20 mls/hr IVPB TITR ERMELINDA Last Admin: 06/20/20 16:22 Dose: 100 mcg/hr, 20 mls/hr Documented by: Propofol (Diprivan -) 1,000,000 mcg in 100 mls @ 2.618 mls/hr IVPB TITR ERMELINDA; Protocol Last Admin: 06/20/20 12:06 Dose: 20 mcg/kg/min, 10.473 mls/hr Documented by: Vasopressin 40 units/ Sodium (Chloride) 100 mls @ 5 mls/hr IVPB ASDIR ERMELINDA; P rotocol Last Titration: 06/20/20 10:31 Dose: 4 units/hr, 10 mls/hr Documented by: Norepinephrine Bitartrate 16, (000 mcg/ Sodium Chloride) 500 mls @ 9.375 mls/hr IV TITR ERMELINDA; Protocol Last Titration: 06/20/20 13:30 Dose: 25 mcg/min, 46.875 mls/hr Documented by: Cefepime HCl 2 gm/ Dextrose 100 mls @ 100 mls/hr IVPB BID ERMELINDA; Protocol Last Admin: 06/20/20 12:57 Dose: 100 mls/hr Documented by: Sodium Chloride (Normal Saline -) 1,000 mls @ 125 mls/hr IV ASDIR ERMELINDA Stop: 06/20/20 23:07 Last Admin: 06/20/20 11:43 Dose: 125 mls/hr Documented by: Sodium Chloride (Normal Saline -) 250 mls @ 3,000 mls/hr IV PRN PRN PRN Reason: Hypotension during Dialysis Stop: 06/21/20 16:33 Midazolam HCl (Versed -) 2 mg IVPUSH Q2H PRN PRN Reason: AGITATION Last Admin: 06/20/20 00:17 Dose: 2 mg Documented by: Pantoprazole Sodium (Protonix Iv) 40 mg IVPUSH DAILY [facility] Polyethylene Glycol (Miralax (For Daily Use) -) 17 gm PO BID [facility] Last Admin: 06/20/20 10:45 Dose: Not Given Documented by: Last Vital Signs Temp Pulse Resp BP Pulse Ox 101.2 F H 94 H 20 112/57 L 98 06/20/20 13:00 06/20/20 13:00 06/20/20 15:53 06/20/20 13:00 06/20/20 15:53 CBC, BMP 06/20/20 15:00 06/20/20 15:00 CBC, BMP 06/19/20 09:30 06/19/20 09:30 IMP- Worsening SHADI Hperkalemia Marked Leukocytosis AML Hyponatremia Anemia CKD Plan acute hemodialysis via temporary catheter - cont saline - cont allopurinol
[2020-06-20] MEDS ORDERED: VANCOMYCIN 1 GRAM (PRE-DOCKED) 1,000 MG/250 ML BAG IVPB ONE (17:29)
--- NOTE | 2020-06-20 19:19 | PROC ---
Procedure Note Procedure: A-line insertion A time-out was completed verifying correct patient, procedure, site and positioning. Allens test was performed to ensure adequate perfusion. The patients right wrist was prepped and draped in sterile fashion. 1% Lidocaine was used to anesthetize the area. A 20G Arrow arterial line was introduced into the radial artery. The catheter was threaded over the guide wire and the needle was removed with appropriate pulsatile blood return. The catheter was then sutured in place to the skin and a sterile dressing applied. Perfusion to the extremity distal to the point of catheter insertion was checked and found to be adequate. Estimated Blood Loss: 2 ml The patient tolerated the procedure well and there were no complications.
--- NOTE | 2020-06-20 19:19 | PROC ---
Central Line Insertion Indication: Other Risks and Benefits Explained: Yes Consent on Chart: Yes Central Line: Dialysis Cath, Tri Lumen Anesthesia: 1% Lidocaine Sterile Technique: Yes Ultrasound Guided Assistance: Yes Position: Right Internal Jugular Post Insertion: Yes: Bilateral Breath Sounds, Bilateral Chest Expansion, Chest X-Ray Ordered Sterile Dressing Applied: Yes
--- NOTE | 2020-06-20 22:22 | PN.HO ---
Progress Note (short form) - Note Progress Note: PAtient seen and examined Febrile to 104.7 Rising K and phos diagnostic of tumor lysis discussed this with his sister at bed side AFVSS Cor: RSR, No murmurs, No gallops Lungs: decreased at abses Abd: Soft, Normal bowel sounds, distended,+++ splenomegaly. 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 WBC 198,000. 30% blasts s/p rasburicase 6mg IVSS x 1 dose 06/14 G-6 PD -- not deficient s/p 5 doses decitabine hydrea 1gbid held due to ongoing tumor lysis TUMOR LYSIS --- febrile to 104.7/ RIsing K and Phos s/p 2nd dose rasuricase on 06/19 IV Fluids Discussed with nephrology team --- - EMergent dialysis as oliguric with rising K/Phos CT a/p -- Rt. > lt. pleural effusions. Hepatosplenomegaly. Perisplenic fluid collection. Diverticulosis an to correlate clinically for diverticulitis Blood cultures negative Continue empiric antibiotics Discussed with sister at bed side OVerall guarded prognosis
[2020-06-20 23:02] LABS: ALBUMIN 2.1 g/dl (3.4-5.0); BILIRUBIN,TOTAL 0.7 mg/dL (0.2-1); BLOOD UREA NITROGEN 34.4 mg/dL (7-18); CALCIUM 7.4 mg/dL (8.5-10.1); CREATININE 1.5 mg/dL (0.55-1.3); PHOSPHOROUS 5.4 mg/dL (2.5-4.9); POTASSIUM 3.8 mmol/L (3.5-5.1); TOT PROT 6.3 g/dl (6.4-8.2); URIC ACID 2.3 mg/dL (2.6-7.2)
[2020-06-20 23:38] LABS: BASO % 1.4 % (0-2.0); EOS % 0.1 % (0-4.5); HEMATOCRIT 24.5 % (35.4-49); HEMOGLOBIN 7.2 GM/dL (11.7-16.9); LYMPH % 7.6 % (8-40); MCH 25.3 pg (25.7-33.7); MCHC 29.6 g/dl (32.0-35.9); MEAN CELL VOLUME 85.4 fl (80-96); MEAN PLT VOLUME 10.5 fl (7.5-11.1); MONO % 30.2 % (3.8-10.2); NEUT % 60.7 % (42.8-82.8); PLATELET COUNT 73 K/MM3 (134-434); RBC 2.86 M/mm3 (4.00-5.60); RDW 20.4 % (11.9-15.9)
[2020-06-21] MEDS: PROPOFOL 1,000,000 MCG/100 ML VIAL IVPB SCH ×3 (02:00→16:26)
[2020-06-21] MEDS: HYDROCORTISONE SOD SUCCINATE 100 MG/2 ML VIAL IVPUSH SCH ×4 (02:00→21:46)
[2020-06-21 05:02] LABS: SMUDGE CELLS MODERATE
[2020-06-21 05:03] LABS: PLATELET ESTIMATE SIGNIFICANT INCREASE
[2020-06-21 06:17] LABS: ARTERIAL BLD GAS O2 SATURATION 88.6 mmHg (95-98); ARTERIAL BLOOD GAS BASE EXCESS -3.8 mmol/L (-2-2); ARTERIAL BLOOD GAS PO2 64.4 mmHg (80-100); ARTERIAL BLOOD GAS pH 7.246 (7.350-7.450)
[2020-06-21 06:21] LABS: VENT MODE A/C; VENT RATE 20
[2020-06-21] MEDS: VASOPRESSIN 40 UNITS in SODIUM CHLORIDE 98 ML IVPB SCH ×2 (06:37→11:08)
[2020-06-21 07:16] LABS: BASO % 1.3 % (0-2.0); EOS % 0.2 % (0-4.5); HEMATOCRIT 26.3 % (35.4-49); HEMOGLOBIN 7.9 GM/dL (11.7-16.9); LYMPH % 9.4 % (8-40); MCH 25.3 pg (25.7-33.7); MCHC 29.9 g/dl (32.0-35.9); MEAN CELL VOLUME 84.4 fl (80-96); MEAN PLT VOLUME 9.9 fl (7.5-11.1); MONO % 24.8 % (3.8-10.2); NEUT % 64.3 % (42.8-82.8); PLATELET COUNT 64 K/MM3 (134-434); RBC 3.11 M/mm3 (4.00-5.60); RDW 19.4 % (11.9-15.9)
[2020-06-21 07:57] LABS: POTASSIUM 4.4 mmol/L (3.5-5.1)
[2020-06-21 08:06] LABS: BILIRUBIN,TOTAL 0.7 mg/dL (0.2-1); BLOOD UREA NITROGEN 40.6 mg/dL (7-18); CALCIUM 7.8 mg/dL (8.5-10.1); CREATININE 1.7 mg/dL (0.55-1.3); MAGNESIUM 2.5 mg/dL (1.8-2.4); PHOSPHOROUS 7.7 mg/dL (2.5-4.9); TOT PROT 6.2 g/dl (6.4-8.2)
[2020-06-21 08:08] LABS: WHITE BLOOD COUNT 105.3 K/mm3 (4.0-10.0)
--- NOTE | 2020-06-21 08:30 | PN ---
Progress Note, Physician Chief Complaint: EVENTS AND NOTES REVIEWED STILL INTUBATED ON VENT SUPPORT DISCUSSED WITH CHLOE WHEELER - Current Medication List Current Medications: Active Medications Allopurinol (Zyloprim -) 300 mg PO DAILY ERMELINDA Last Admin: 06/20/20 12:12 Dose: 300 mg Documented by: Artificial Tears (Artificial Tears) 1 drop OU DAILY ERMELINDA Last Admin: 06/20/20 12:57 Dose: 1 drop Documented by: Atorvastatin Calcium (Lipitor -) 20 mg PO HS ERMELINDA Last Admin: 06/20/20 21:09 Dose: Not Given Documented by: Docusate Sodium (Colace -) 100 mg PO Q8H PRN PRN Reason: CONSTIPATION Famotidine (Acid Hydraulic Specialist) 10 mg PO DAILY ERMELINDA Last Admin: 06/20/20 10:44 Dose: Not Given Documented by: Hydrocortisone Sodium Succinate (Solu-Cortef -) 50 mg IVPUSH Q6H-IV ERMELINDA Last Admin: 06/21/20 02:00 Dose: 50 mg Documented by: Fentanyl (Sublimaze Ivpb) 500 mcg in 100 mls @ 20 mls/hr IVPB TITR ERMELINDA Last Admin: 06/20/20 23:47 Dose: 100 mcg/hr, 20 mls/hr Documented by: Propofol (Diprivan -) 1,000,000 mcg in 100 mls @ 2.618 mls/hr IVPB TITR ERMELINDA; Protocol Last Admin: 06/21/20 02:00 Dose: 30 mcg/kg/min, 15.709 mls/hr Documented by: Vasopressin 40 units/ Sodium (Chloride) 100 mls @ 5 mls/hr IVPB ASDIR ERMELINDA; Protocol Last Admin: 06/21/20 06:37 Dose: 2 units/hr, 5 mls/hr Documented by: Norepinephrine Bitartrate 16, (000 mcg/ Sodium Chloride) 500 mls @ 9.375 mls/hr IV TITR ERMELINDA; Protocol Last Titration: 06/21/20 02:30 Dose: 15 mcg/min, 28.125 mls/hr Documented by: Cefepime HCl 2 gm/ Dextrose 100 mls @ 100 mls/hr IVPB BID ERMELINDA; Protocol Last Admin: 06/20/20 22:30 Dose: 100 mls/hr Documented by: Sodium Chloride (Normal Saline -) 250 mls @ 3,000 mls/hr IV PRN PRN PRN Reason: Hypotension during Dialysis Stop: 06/21/20 16:33 Midazolam HCl (Versed -) 2 mg IVPUSH Q2H PRN PRN Reason: AGITATION Last Admin: 06/20/20 00:17 Dose: 2 mg Documented by: Pantoprazole Sodium (Protonix Iv) 40 mg IVPUSH DAILY ERMELINDA Polyethylene Glycol (Miralax (For Daily Use) -) 17 gm PO BID ERMELINDA Last Admin: 06/20/20 21:09 Dose: Not Given Documented by: - Objective Vital Signs: Vital Signs Temperature 97.8 F 06/21/20 06:00 Pulse Rate 83 06/21/20 08:28 Respiratory Rate 20 06/21/20 08:28 Blood Pressure 114/56 L 06/21/20 06:37 O2 Sat by Pulse Oximetry (%) 96 06/21/20 08:28 Constitutional: Yes: Severe Distress Cardiovascular: Yes: Tachycardia Respiratory: Yes: Diminished, Mechanically Ventilated Gastrointestinal: Yes: Normal Bowel Sounds, Distention Genitourinary: Yes: García Present Musculoskeletal: Yes: Muscle Weakness Edema: Yes Wound/Incision: Yes: Other Neurological: Yes: Other Labs: CBC, BMP 06/21/20 05:00 06/21/20 05:00 INR, PTT INR 1.31 (0.83-1.09) H 06/14/20 19:20 Fibrinogen > 500.0 mg/dL (238-498) H 06/14/20 19:20 Problem List - Problems (1) AML (acute myeloblastic leukemia) Code(s): C92.00 - ACUTE MYELOBLASTIC LEUKEMIA, NOT HAVING ACHIEVED REMISSION (2) CHF (congestive heart failure) Code(s): I50.9 - HEART FAILURE, UNSPECIFIED (3) Palpitations Code(s): R00.2 - PALPITATIONS (4) Shortness of breath Code(s): R06.02 - SHORTNESS OF BREATH (5) Acute renal failure Code(s): N17.9 - ACUTE KIDNEY FAILURE, UNSPECIFIED (6) Abdominal distention Code(s): R14.0 - ABDOMINAL DISTENSION (GASEOUS) (7) CML (chronic myelocytic leukemia) Code(s): C92.10 - CHRONIC MYELOID LEUK, BCR/ABL-POSITIVE, NOT ACHIEVE REMIS Assessment/Plan ON VENT SUPPORT D/W ICU TEAM WEANING PROTOCOL TOLERATED HD PER NEPHROLOGY ON ABX DVT PROPHYLAXIS TUMOR LYSIS SYNDROME ON IVF PULM/ONCOLOGY DIAN APPRECIATED I SPOKE WITH CHLOE HIS SIGNIFICANT OTHER AND SHE IS AWARE OF THE GUARDED PROGNOSIS
[2020-06-21] MEDS ORDERED: PT OWN MED DRAWER 7, Y5N ONE (09:14)
[2020-06-21] MEDS: ARTIFICIAL TEARS (POLYVINYL ALCOHOL) OPTH DROPS OU SCH (09:27)
[2020-06-21] MEDS: ALLOPURINOL 300 MG TABLET (FP) PO SCH (09:28)
[2020-06-21] MEDS: CEFEPIME 2 GM in DEXTROSE 5%-WATER 100 ML IVPB SCH (09:28)
[2020-06-21] MEDS: PANTOPRAZOLE SODIUM 40 MG VIAL IVPUSH SCH (09:28)
--- NOTE | 2020-06-21 09:50 | CON.NEURO ---
Consult Consult Specialty:: [facility]-Neurology Referred by:: ICU team - History of Present Illness History of Present Illness: 70-year-old right-handed man with multiple medical problems including coronary artery disease, history of AML, mild dementia came in with weakness neurology was called to evaluate the patient yesterday with a chief complaint of delirium. When I came to see the patient this morning patient was already intubated patient is on the vent patient is on sedation patient is on morphine and fentanyl and propofol. Patient was difficult to examine most of the history was obtained from the chart according to the oncology service patient was noted to be increasingly confused initially patient had fever. Neurology was not cold on the case before. - History Source History Provided By: Medical Record Limitations to Obtaining History: Clinical Condition - Past Medical History Cardio/Vascular: Yes: HTN, Hyperlipdemia Gastrointestinal: Yes: GERD, Other (Ischemic Colitis) - Past Surgical History Past Surgical History: Yes: Arthrosocopy (Left Shoulder) - Alcohol/Substance Use Hx Alcohol Use: Yes (scotch) History of Substance Use: reports: None - Smoking History Smoking history: Former smoker Have you smoked in the past 12 months: No Aproximately how many cigarettes per day: 10 If you are a former smoker, when did you quit?: 1 yr ago - Social History Usual Living Arrangement: Alone ADL: Independent History of Recent Travel: No Home Medications - Allergies Allergies/Adverse Reactions: Allergies Allergy/AdvReac Type Severity Reaction Status Date / Time Penicillins Allergy Severe Rash Verified 12/20/19 08:26 - Home Medications Home Medications: Ambulatory Orders Omeprazole [Prilosec] 40 mg PO DAILY 01/26/12 Budesonide 8.6 gm NS PRN 05/16/19 Allopurinol [Zyloprim -] 100 mg PO DAILY 05/25/20 Colchicine 0.6 mg PO BID 05/25/20 Famotidine [Acid Transporter Radiology] 10 mg PO ASDIR 05/25/20 Propylene Glycol/Peg 400/Pf [Systane 0.3-0.4% Eye Drops] 1 each OP DAILY 05/25/20 Atorvastatin Ca [Lipitor] 20 mg PO DAILY 05/26/20 Lisinopril 10 mg PO DAILY 05/26/20 Metoprolol Tartrate 50 mg PO DAILY 05/26/20 Family Medical History Family History: Unable to Obtain Family Hx Cancer: Sister (Hodgkin's Lymphoma- age 24) Review of Systems Unable to obtain ROS, reason: unable to obtain Physical Exam-Neuro Vital Signs: Vital Signs Temperature 96.9 F L 06/21/20 08:00 Pulse Rate 83 06/21/20 08:28 Respiratory Rate 20 06/21/20 08:28 Blood Pressure 121/55 L 06/21/20 08:00 O2 Sat by Pulse Oximetry (%) 96 06/21/20 08:28 Constitutional: Yes: Well Nourished Neck: Yes: WNL Cardiovascular: Yes: WNL Labs: CBC, BMP 06/21/20 05:00 06/21/20 05:00 INR, PTT INR 1.31 (0.83-1.09) H 06/14/20 19:20 Fibrinogen > 500.0 mg/dL (238-498) H 06/14/20 19:20 - Neuro Exam Level Of Consciousness: Yes: Comatose Eyes: Yes: PERRLA Speech: Other Dominant Hand: Right Cranial Nerves II-XII Intact: Yes (rest of the neurological examination was limited) Problem List - Problems (1) Altered mental status Code(s): R41.82 - ALTERED MENTAL STATUS, UNSPECIFIED (2) AML (acute myeloblastic leukemia) Code(s): C92.00 - ACUTE MYELOBLASTIC LEUKEMIA, NOT HAVING ACHIEVED REMISSION Assessment/Plan 1. Neuro checks every 1 hour. 2. Follow-up with the ICU team. 3. CAT scan of the head when medically stable. 4. Seizure precautions. 5. Sepsis workup Thank very much for allowing me to be part of this patient neurological care Arjun Mary M.D. [phone]
[2020-06-21 10:27] LABS: OVALOCYTE 1+; TEAR DROP CELLS 1+
[2020-06-21 10:28] LABS: PLATELET ESTIMATE ADEQUATE
--- NOTE | 2020-06-21 11:12 | PN ---
Progress Note (short form) - Note Progress Note: remains intubated and sedated oxygen demands unchanged s/p hd last night has made over 500 cc urine this am pressors being tapered Vital Signs Period Temp Pulse Resp BP Sys/Acrrillo Pulse Ox Last 24 Hr 96.9 F-103.2 F 83-98 18-24 101-130/45-60 95-100 cor-rrr lungs decreased bs at bases abd soft, nt ext +pedal edema CBC, BMP 06/21/20 05:00 06/21/20 05:00 Microbiology 06/20/20 11:50 Sputum - Endotrachea Suction/Ventilator Gram Stain - Final 06/20/20 11:50 Sputum - Endotrachea Suction/Ventilator Sputum Culture - Preliminary 06/20/20 10:50 Urine - Urine - Catheterized Urine Culture - Final NO GROWTH OBTAINED 06/19/20 21:36 Blood - Peripheral Venous Blood Culture - Preliminary NO GROWTH OBTAINED AFTER 24 HOURS, INCUBATION TO CONTINUE FOR 4 DAYS. 06/20/20 10:50 Urine For Antigen Detection Legionella Antigen - Final 06/20/20 10:50 Urine For Antigen Detection Streptococcus pneumoniae Antigen (M - Final 06/14/20 01:10 Blood - Peripheral Venous Blood Culture - Final NO GROWTH AFTER 5 DAYS INCUBATION 06/14/20 01:10 Blood - Peripheral Venous Blood Culture - Final NO GROWTH AFTER 5 DAYS INCUBATION 06/14/20 01:10 Urine - Urine Clean Catch Urine Culture - Final Staphylococcus Haemolyticus Group D Strep Or Entero Coccus a/p fevers- not neutropenic resp failure AML s/p chemo worsening renal failure tumorlysis syndrome anemia thrombocytopenia pen allergy continue vanco by levels continue cefepime add flagyl f/u cultures Problem List - Problems (1) AML (acute myeloblastic leukemia) Code(s): C92.00 - ACUTE MYELOBLASTIC LEUKEMIA, NOT HAVING ACHIEVED REMISSION (2) Shortness of breath Code(s): R06.02 - SHORTNESS OF BREATH
--- NOTE | 2020-06-21 12:43 | PN ---
Progress Note, Physician History of Present Illness: This is a 70 year old male with a PMH of HTN, HLD, CML with recent development of AML. 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 CTA 06/14/20 no PE, bilat effusions R>L. He was admitted to ICU due to risk of tumor lysis syndrome. Echocardiogram 06/15/2020 Normal EF. Noted to have sinus tachycardia and severe anemia Hypoalbuminemia and 3rd spacing - Current Medication List Current Medications: Active Medications Allopurinol (Zyloprim -) 300 mg PO DAILY ERMELINDA Last Admin: 06/21/20 09:28 Dose: 300 mg Documented by: Artificial Tears (Artificial Tears) 1 drop OU DAILY ERMELINDA Last Admin: 06/21/20 09:27 Dose: 1 drop Documented by: Atorvastatin Calcium (Lipitor -) 20 mg PO HS ERMELINDA Last Admin: 06/20/20 21:09 Dose: Not Given Documented by: Docusate Sodium (Colace -) 100 mg PO Q8H PRN PRN Reason: CONSTIPATION Famotidine (Acid Laborer Sawmill) 10 mg PO DAILY ERMELINDA Last Admin: 06/20/20 10:44 Dose: Not Given Documented by: Hydrocortisone Sodium Succinate (Solu-Cortef -) 50 mg IVPUSH Q6H-IV ERMELINDA Last Admin: 06/21/20 09:27 Dose: 50 mg Documented by: Fentanyl (Sublimaze Ivpb) 500 mcg in 100 mls @ 20 mls/hr IVPB TITR ERMELINDA Last Admin: 06/20/20 23:47 Dose: 100 mcg/hr, 20 mls/hr Documented by: Propofol (Diprivan -) 1,000,000 mcg in 100 mls @ 2.618 mls/hr IVPB TITR ERMELINDA; Protocol Last Admin: 06/21/20 12:25 Dose: 30 mcg/kg/min, 15.709 mls/hr Documented by: Vasopressin 40 units/ Sodium (Chloride) 100 mls @ 5 mls/hr IVPB ASDIR ERMELINDA; Protocol Last Admin: 06/21/20 11:08 Dose: 2 units/hr, 5 mls/hr Documented by: Norepinephrine Bitartrate 16, (000 mcg/ Sodium Chloride) 500 mls @ 9.375 mls/hr IV TITR ERMELINDA; Protocol Last Titration: 06/21/20 02:30 Dose: 15 mcg/min, 28.125 mls/hr Documented by: Sodium Chloride (Normal Saline -) 250 mls @ 3,000 mls/hr IV PRN PRN PRN Reason: Hypotension during Dialysis Stop: 06/21/20 16:33 Vancomycin HCl (Vancomycin (Pre-Docked)) 1,000 mg in 250 mls @ 166.667 mls/hr IVPB ONCE ONE; Protocol Stop: 06/21/20 19:29 Metronidazole (Flagyl 500mg Premixed Ivpb -) 500 mg in 100 mls @ 100 mls/hr IVPB Q8H-IV ERMELINDA Cefepime HCl 1 gm/ Dextrose 100 mls @ 100 mls/hr IVPB BID ERMELINDA; Protocol Stop: 06/22/20 21:59 Midazolam HCl (Versed -) 2 mg IVPUSH Q2H PRN PRN Reason: AGITATION Last Admin: 06/20/20 00:17 Dose: 2 mg Documented by: Pantoprazole Sodium (Protonix Iv) 40 mg IVPUSH DAILY ERMELINDA Last Admin: 06/21/20 09:28 Dose: 40 mg Documented by: Polyethylene Glycol (Miralax (For Daily Use) -) 17 gm PO BID ERMELINDA Last Admin: 06/20/20 21:09 Dose: Not Given Documented by: - Objective Vital Signs: Vital Signs Temperature 98.6 F 06/21/20 10:00 Pulse Rate 83 06/21/20 10:00 Respiratory Rate 24 H 06/21/20 12:20 Blood Pressure 118/60 06/21/20 10:00 O2 Sat by Pulse Oximetry (%) 96 06/21/20 12:21 Constitutional: Yes: No Distress Neck: Yes: WNL Cardiovascular: Yes: Regular Rate and Rhythm, Tachycardia, S1, S2 Respiratory: Yes: Mechanically Ventilated Edema: Yes Labs: CBC, BMP 06/21/20 05:00 06/21/20 05:00 INR, PTT INR 1.31 (0.83-1.09) H 06/14/20 19:20 Fibrinogen > 500.0 mg/dL (238-498) H 06/14/20 19:20 Assessment/Plan 70 year old male with a PMH of HTN, HLD, CML with recent development of AML. 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 CTA 06/14/20 no PE, bilat effusions R>L. He was admitted to ICU due to risk of tumor lysis syndrome. Echocardiogram 06/15/2020 Normal EF. Noted to have sinus tachycardia and severe anemia Hypoalbuminemia and 3rd spacing Presently not tachycardiac, HR is 83 BPM Hypoxic respiratory failure, remains intubated Now on pressor support Edema likely secondary to hypoalbuminemia, no need for loop diuretics at this time Correcting the anemia with PRBC's may help mobilize the 3rd spaced fluids
--- NOTE | 2020-06-21 13:10 | PN ---
Teaching Attending Note Name of Resident: Rudy Sanabria ATTENDING PHYSICIAN STATEMENT I saw and evaluated the patient. I reviewed the resident's note and discussed the case with the resident. I agree with the resident's findings and plan as documented. SUBJECTIVE: Pt seen and examined in the ICU. Remains intubated, sedated on levophed and vasopressin gtts. Vented on volume assist control with 50% FiO2. Dialyzed yesterday. OBJECTIVE: Vital Signs Period Temp Pulse Resp BP Sys/Carrillo Pulse Ox Last 24 Hr 96.9 F-103.2 F 83-98 18-24 101-130/45-60 95-100 Intake & Output 06/18/20 06/19/20 06/20/20 06/21/20 23:59 23:59 23:59 23:59 Intake Total 1050 1510 5034 859.5 Output Total 180 8585 550 Balance 1050 1330 -3551 309.5 Weight 85.729 kg 87.271 kg 87.2 kg 87.044 kg Gen: intubated, sedated Heart: RRR Lung: scattered rhonchi Abd: soft, nontender Ext: + edema CBC, BMP 06/21/20 05:00 06/21/20 05:00 ABG Results ABG pH 7.246 (7.350-7.450) L 06/21/20 05:35 ABG HCO3 23.7 mmol/L (22-27) 06/21/20 05:35 ABG O2 Sat (Measured) 88.6 mmHg (95-98) L 06/21/20 05:35 ABG O2 Content No Result Required. 06/21/20 05:35 ABG Base Excess -3.8 mmol/L (-2-2) L 06/21/20 05:35 Active Medications Allopurinol (Zyloprim -) 300 mg PO DAILY [facility] Last Admin: 06/21/20 09:28 Dose: 300 mg Documented by: Artificial Tears (Artificial Tears) 1 drop OU DAILY ERMELINDA Last Admin: 06/21/20 09:27 Dose: 1 drop Documented by: Atorvastatin Calcium (Lipitor -) 20 mg PO HS [facility] Last Admin: 06/20/20 21:09 Dose: Not Given Documented by: Docusate Sodium (Colace -) 100 mg PO Q8H PRN PRN Reason: CONSTIPATION Famotidine (Acid Lamp Shade Maker) 10 mg PO DAILY [facility] Last Admin: 06/20/20 10:44 Dose: Not Given Documented by: Hydrocortisone Sodium Succinate (Solu-Cortef -) 50 mg IVPUSH Q6H-IV ERMELINDA Last Admin: 06/21/20 09:27 Dose: 50 mg Documented by: Fentanyl (Sublimaze Ivpb) 500 mcg in 100 mls @ 20 mls/hr IVPB TITR ERMELINDA Last Admin: 06/20/20 23:47 Dose: 100 mcg/hr, 20 mls/hr Documented by: Propofol (Diprivan -) 1,000,000 mcg in 100 mls @ 2.618 mls/hr IVPB TITR ERMELINDA; Protocol Last Admin: 06/21/20 12:25 Dose: 30 mcg/kg/min, 15.709 mls/hr Documented by: Vasopressin 40 units/ Sodium (Chloride) 100 mls @ 5 mls/hr IVPB ASDIR ERMELINDA; Protocol Last Admin: 06/21/20 11:08 Dose: 2 units/hr, 5 mls/hr Documented by: Norepinephrine Bitartrate 16, (000 mcg/ Sodium Chloride) 500 mls @ 9.375 mls/hr IV TITR ERMELINDA; Protocol Last Titration: 06/21/20 02:30 Dose: 15 mcg/min, 28.125 mls/hr Documented by: Sodium Chloride (Normal Saline -) 250 mls @ 3,000 mls/hr IV PRN PRN PRN Reason: Hypotension during Dialysis Stop: 06/21/20 16:33 Vancomycin HCl (Vancomycin (Pre-Docked)) 1,000 mg in 250 mls @ 166.667 mls/hr IVPB ONCE ONE; Protocol Stop: 06/21/20 19:29 Metronidazole (Flagyl 500mg Premixed Ivpb -) 500 mg in 100 mls @ 100 mls/hr IVPB Q8H-IV ERMELINDA Cefepime HCl 1 gm/ Dextrose 100 mls @ 100 mls/hr IVPB BID ERMELINDA; Protocol Stop: 06/22/20 21:59 Midazolam HCl (Versed -) 2 mg IVPUSH Q2H PRN PRN Reason: AGITATION Last Admin: 06/20/20 00:17 Dose: 2 mg Documented by: Pantoprazole Sodium (Protonix Iv) 40 mg IVPUSH DAILY ERMELINDA Last Admin: 06/21/20 09:28 Dose: 40 mg Documented by: Polyethylene Glycol (Miralax (For Daily Use) -) 17 gm PO BID ERMELINDA Last Admin: 06/20/20 21:09 Dose: Not Given Documented by: ASSESSMENT AND PLAN: 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
[2020-06-21] MEDS: FAMOTIDINE 10 MG TABLET PO SCH (13:12)
--- NOTE | 2020-06-21 13:20 | PN ---
Physical Exam: SUBJECTIVE: Patient seen and examined. Intubated, sedated. Febrile overnight with Tmax 103. OBJECTIVE: Vital Signs Temperature 98.6 F 06/21/20 10:00 Pulse Rate 83 06/21/20 10:00 Respiratory Rate 24 H 06/21/20 12:20 Blood Pressure 118/60 06/21/20 10:00 O2 Sat by Pulse Oximetry (%) 96 06/21/20 12:21 GENERAL: The patient is intubated, sedated EYES: PERRLA, conjunctiva clear. ENT: dry mucous membranes, ET tube in place NECK: supple LUNGS: vented breath sounds b/l, decreased breath sounds bilateral bases HEART: Regular rate and rhythm, S1, S2 ABDOMEN: Soft, does not grimace on palpation, hypoactive bowel sounds, +splenomegaly EXTREMITIES: 2+ pulses, warm, well-perfused, +2 b/l pitting edema SKIN: Warm, dry, normal turgor Laboratory Results - last 24 hr 06/20/20 06/20/20 06/20/20 15:00 15:00 15:00 WBC 139.4 H* RBC 3.05 L Hgb 7.6 L Hct 26.1 L MCV 85.6 MCH 24.9 L MCHC 29.1 L RDW 20.7 H Plt Count 90 L MPV 10.5 Absolute Neuts (auto) Total Counted Neutrophils % Neutrophils % (Manual) Band Neutrophils % Lymphocytes % Lymphocytes % (Manual) Monocytes % Monocytes % (Manual) Eosinophils % Eosinophils % (Manual) Basophils % Myelocytes % (Man) Promyelocytes % (Man) Blast Cells % (Manual) Nucleated RBC % Smudge Cells Platelet Estimate Platelet Comment Basophilic Stippling Spherocytes Tear Drop Cells Ovalocytes Bebeto Cells Anticoagulation Therapy Puncture Site Patient Temperature ABG pH ABG pCO2 ABG pO2 ABG HCO3 ABG O2 Sat (Measured) ABG O2 Content ABG Base Excess Rhett Test Patient On Oxygen O2 Delivery Device Oxygen Flow Rate Vent Mode Vent Rate Mechanical Rate PEEP Pressure Support Vent Sodium 129 L Potassium 6.1 H* Chloride 100 Carbon Dioxide 18 L Anion Gap 11 BUN 57.9 H Creatinine 2.5 H Est GFR (CKD-EPI)AfAm 28.86 Est GFR (CKD-EPI)NonAf 24.90 Random Glucose 136 H Uric Acid 4.9 Calcium 7.6 L Phosphorus 8.7 H Magnesium Total Bilirubin 0.7 AST 58 H ALT 9 L Alkaline Phosphatase 207 H LD Total 428 H Total Protein 6.4 Albumin 2.2 L Random Vancomycin 8.4 Blood Type Antibody Screen Crossmatch 06/20/20 06/20/20 06/21/20 22:00 23:25 00:10 WBC 106.0 H* RBC 2.86 L Hgb 7.2 L Hct 24.5 L MCV 85.4 MCH 25.3 L MCHC 29.6 L RDW 20.4 H Plt Count 73 L MPV 10.5 Absolute Neuts (auto) 64.4 H Total Counted 100 Neutrophils % 60.7 Neutrophils % (Manual) 46.0 Band Neutrophils % 7.0 Lymphocytes % 7.6 L D Lymphocytes % (Manual) 4.0 L D Monocytes % 30.2 H Monocytes % (Manual) 16 H Eosinophils % 0.1 Eosinophils % (Manual) Basophils % 1.4 Myelocytes % (Man) 6 H Promyelocytes % (Man) 3 Blast Cells % (Manual) 24 H Nucleated RBC % 3 H Smudge Cells Moderate Platelet Estimate Significant increase Platelet Comment No clumping noted Basophilic Stippling Spherocytes Tear Drop Cells Ovalocytes Bebeto Cells Anticoagulation Therapy Puncture Site Patient Temperature ABG pH ABG pCO2 ABG pO2 ABG HCO3 ABG O2 Sat (Measured) ABG O2 Content ABG Base Excess Rhett Test Patient On Oxygen O2 Delivery Device Oxygen Flow Rate Vent Mode Vent Rate Mechanical Rate PEEP Pressure Support Vent Sodium 137 Potassium 3.8 Chloride 102 Carbon Dioxide 26 Anion Gap 8 BUN 34.4 H Creatinine 1.5 H Est GFR (CKD-EPI)AfAm 53.52 Est GFR (CKD-EPI)NonAf 46.17 Random Glucose 152 H Uric Acid 2.3 L Calcium 7.4 L Phosphorus 5.4 H Magnesium Total Bilirubin 0.7 AST 85 H ALT 11 L Alkaline Phosphatase 197 H LD Total 625 H Total Protein 6.3 L Albumin 2.1 L Random Vancomycin Blood Type O POSITIVE Antibody Screen Negative Crossmatch See Detail 06/21/20 06/21/20 06/21/20 05:00 05:00 05:00 WBC 105.3 H* RBC 3.11 L Hgb 7.9 L Hct 26.3 L MCV 84.4 MCH 25.3 L MCHC 29.9 L RDW 19.4 H Plt Count 64 L MPV 9.9 Absolute Neuts (auto) 67.6 H Total Counted 100 Neutrophils % 64.3 Neutrophils % (Manual) 34.0 L D Band Neutrophils % 9.0 Lymphocytes % 9.4 D Lymphocytes % (Manual) 11.0 D Monocytes % 24.8 H Monocytes % (Manual) 9 Eosinophils % 0.2 D Eosinophils % (Manual) 1.0 D Basophils % 1.3 Myelocytes % (Man) Promyelocytes % (Man) Blast Cells % (Manual) 36 H D Nucleated RBC % 1 H Smudge Cells Platelet Estimate Adequate Platelet Comment Basophilic Stippling 2+ Spherocytes 1+ Tear Drop Cells 1+ Ovalocytes 1+ [place] Cells 1+ Anticoagulation Therapy Puncture Site Patient Temperature ABG pH ABG pCO2 ABG pO2 ABG HCO3 ABG O2 Sat (Measured) ABG O2 Content ABG Base Excess Rhett Test Patient On Oxygen O2 Delivery Device Oxygen Flow Rate Vent Mode Vent Rate Mechanical Rate PEEP Pressure Support Vent Sodium 135 L Potassium 4.4 Chloride 101 Carbon Dioxide 25 Anion Gap 9 BUN 40.6 H Creatinine 1.7 H Est GFR (CKD-EPI)AfAm 46.00 Est GFR (CKD-EPI)NonAf 39.69 Random Glucose 129 H Uric Acid Calcium 7.8 L Phosphorus 7.7 H Magnesium 2.5 H Total Bilirubin 0.7 AST 75 H ALT 7 L Alkaline Phosphatase 191 H LD Total Total Protein 6.2 L Albumin 2.0 L Random Vancomycin 12.6 Blood Type Antibody Screen Crossmatch 06/21/20 05:35 WBC RBC Hgb Hct MCV MCH MCHC RDW Plt Count MPV Absolute Neuts (auto) Total Counted Neutrophils % Neutrophils % (Manual) Band Neutrophils % Lymphocytes % Lymphocytes % (Manual) Monocytes % Monocytes % (Manual) Eosinophils % Eosinophils % (Manual) Basophils % Myelocytes % (Man) Promyelocytes % (Man) Blast Cells % (Manual) Nucleated RBC % Smudge Cells Platelet Estimate Platelet Comment Basophilic Stippling Spherocytes Tear Drop Cells Ovalocytes Bebeto Cells Anticoagulation Therapy No Result Required. Puncture Site Arterial line Patient Temperature No Result Required. ABG pH 7.246 L ABG pCO2 55.70 H ABG pO2 64.4 L ABG HCO3 23.7 ABG O2 Sat (Measured) 88.6 L ABG O2 Content No Result Required. ABG Base Excess -3.8 L Rhett Test Not applicable Patient On Oxygen Yes O2 Delivery Device Vent Oxygen Flow Rate 50% Vent Mode A/c Vent Rate 20 Mechanical Rate Yes PEEP 5.0 Pressure Support Vent 480 Sodium Potassium Chloride Carbon Dioxide Anion Gap BUN Creatinine Est GFR (CKD-EPI)AfAm Est GFR (CKD-EPI)NonAf Random Glucose Uric Acid Calcium Phosphorus Magnesium Total Bilirubin AST ALT Alkaline Phosphatase LD Total Total Protein Albumin Random Vancomycin Blood Type Antibody Screen Crossmatch Active Medications Generic Name Dose Route Start Last Admin Trade Name Freq PRN Reason Stop Dose Admin Allopurinol 300 mg 06/20/20 10:00 06/21/20 09:28 Zyloprim - PO 300 mg DAILY ERMELINDA Administration Artificial Tears 1 drop 06/20/20 10:00 06/21/20 09:27 Artificial Tears OU 1 drop DAILY ERMELINDA Administration Atorvastatin Calcium 20 mg 06/19/20 22:00 06/20/20 21:09 Lipitor - PO Not Given HS ERMELINDA Docusate Sodium 100 mg 06/19/20 19:42 Colace - PO Q8H PRN CONSTIPATION Famotidine 10 mg 06/20/20 10:00 06/20/20 10:44 Acid Fish Hatchery Manager PO Not Given DAILY ERMELINDA Hydrocortisone Sodium Succinate 50 mg 06/20/20 06:30 06/21/20 09:27 Solu-Cortef - IVPUSH 50 mg Q6H-IV ERMELINDA Administration Fentanyl 500 mcg in 100 mls @ 20 mls/hr 06/19/20 23:45 06/20/20 23:47 Sublimaze Ivpb IVPB 100 mcg/hr TITR ERMELINDA 20 mls/hr Administration 100 MCG/HR Propofol 1,000,000 mcg in 100 mls @ 2.618 mls/hr 06/20/20 00:30 06/21/20 12:25 Diprivan - IVPB 30 mcg/kg/min TITR ERMELINDA 15.709 mls/hr Administration Protocol 5 MCG/KG/MIN Vasopressin 40 units/ Sodium 100 mls @ 5 mls/hr 06/20/20 06:30 06/21/20 11:08 Chloride IVPB 2 units/hr ASDIR ERMELINDA 5 mls/hr Administration Protocol 2 UNITS/HR Norepinephrine Bitartrate 16, 500 mls @ 9.375 mls/hr 06/20/20 08:00 06/21/20 02:30 000 mcg/ Sodium Chloride IV 15 mcg/min TITR ERMELINDA 28.125 mls/hr Titration Protocol 5 MCG/MIN Sodium Chloride 250 mls @ 3,000 mls/hr 06/20/20 16:33 Normal Saline - IV 06/21/20 16:33 PRN PRN Hypotension during Dialysis Vancomycin HCl 1,000 mg in 250 mls @ 166.667 mls/hr 06/21/20 18:00 Vancomycin (Pre-Docked) IVPB 06/21/20 19:29 ONCE ONE Protocol Metronidazole 500 mg in 100 mls @ 100 mls/hr 06/21/20 18:00 Flagyl 500mg Premixed Ivpb - IVPB Q8H-IV ERMELINDA Cefepime HCl 1 gm/ Dextrose 100 mls @ 100 mls/hr 06/21/20 22:00 IVPB 06/22/20 21:59 BID ERMELINDA Protocol Midazolam HCl 2 mg 06/19/20 22:24 06/20/20 00:17 Versed - IVPUSH 2 mg Q2H PRN Administration AGITATION Pantoprazole Sodium 40 mg 06/21/20 10:00 06/21/20 09:28 Protonix Iv IVPUSH 40 mg DAILY ERMELINDA Administration Polyethylene Glycol 17 gm 06/19/20 22:00 06/20/20 21:09 Miralax (For Daily Use) - PO Not Given BID ERMELINDA ASSESSMENT/PLAN: Patient is a 70 year old male with past medical history of HTN, HLD, CKD, 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 We have been consulted for further evaluation of CMML. 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 Splenomegaly. -WBC 198k, ANC [id number] on admission -Rasburicase 6mg x1 on admission, then Hydrea 1000mg bid started 06/14 -G6PD level not deficient -Allopurinol dose to 300mg daily -Completed 5 doses of Decitabine -CT AP 06/18 - Right > Left pleural effusion, marked splenomegaly with perisplenic fluid collection, sigmoid diverticulosis -patient started having fevers with Tmax of 104.7, with rising K and Phos 06/19 -Rasburicase 2nd dose given, Hydrea held due to ongoing tumor lysis -Intubated 06/19 for hypoxic respiratory failure, Dialysis 06/20 -Renvela for elevated phos -IV fluids -blood cultures negative -continue Cefepime -monitor CBC, CMP, LDH, uric acid -pulm consulted. recs appreciated. -cardio consulted. recs appreciated. -ID consulted. recs appreciated. -nephro consulted. recs appreciated. Visit type - Emergency Visit Emergency Visit: Yes ED Registration Date: 06/14/20 Care time: The patient presented to the Emergency Department on the above date and was hospitalized for further evaluation of their emergent condition. - New Patient This patient is new to me today: No - Critical Care Critical Care patient: No - Medication Review Med list reviewed for High Risk Meds patients 65 and older: Yes ATTENDING PHYSICIAN STATEMENT I saw and evaluated the patient. I reviewed the resident's note and discussed the case with the resident. I agree with the resident's findings and plan as documented. SUBJECTIVE: OBJECTIVE: ASSESSMENT AND PLAN:
[2020-06-21] MEDS: POLYETHYLENE GLYCOL 3350 119 GM BTL PO SCH ×2 (15:24→21:52)
[2020-06-21] MEDS: HEPARIN NA (PORCINE) 5,000 UNITS/ML 1ML VIAL SQ SCH ×2 (15:41→21:47)
--- NOTE | 2020-06-21 16:25 | PN ---
Physical Exam: SUBJECTIVE: Patient seen and examined at bedside. Pt intubated OBJECTIVE: Vital Signs Period Temp Pulse Resp BP Sys/Carrillo Pulse Ox Last 24 Hr 96.9 F-103.2 F 83-98 18-24 101-136/45-60 95-100 GENERAL: The patient is intubated and sedated . HEAD: Normal with no signs of trauma. ENT: Ears normal, nares patent, intubated NECK: Trachea midline, supple. LUNGS: bilateral rhonchi HEART: Regular rate and rhythm, S1, S2 without murmur, rub or gallop. ABDOMEN: distended no grimacing, splenomegaly EXTREMITIES: 2+ pulses bilateral lower ext 2+ edema on upper and lower ext. SKIN: Warm, dry, normal turgor, no rashes or lesions noted Laboratory Results - last 24 hr 06/20/20 06/20/20 06/21/20 22:00 23:25 00:10 WBC 106.0 H* RBC 2.86 L Hgb 7.2 L Hct 24.5 L MCV 85.4 MCH 25.3 L MCHC 29.6 L RDW 20.4 H Plt Count 73 L MPV 10.5 Absolute Neuts (auto) 64.4 H Total Counted 100 Neutrophils % 60.7 Neutrophils % (Manual) 46.0 Band Neutrophils % 7.0 Lymphocytes % 7.6 L D Lymphocytes % (Manual) 4.0 L D Monocytes % 30.2 H Monocytes % (Manual) 16 H Eosinophils % 0.1 Eosinophils % (Manual) Basophils % 1.4 Myelocytes % (Man) 6 H Promyelocytes % (Man) 3 Blast Cells % (Manual) 24 H Nucleated RBC % 3 H Smudge Cells Moderate Platelet Estimate Significant increase Platelet Comment No clumping noted Basophilic Stippling Spherocytes Tear Drop Cells Ovalocytes [place] Cells Anticoagulation Therapy Puncture Site Patient Temperature ABG pH ABG pCO2 ABG pO2 ABG HCO3 ABG O2 Sat (Measured) ABG O2 Content ABG Base Excess Rhett Test Patient On Oxygen O2 Delivery Device Oxygen Flow Rate Vent Mode Vent Rate Mechanical Rate PEEP Pressure Support Vent Sodium 137 Potassium 3.8 Chloride 102 Carbon Dioxide 26 Anion Gap 8 BUN 34.4 H Creatinine 1.5 H Est GFR (CKD-EPI)AfAm 53.52 Est GFR (CKD-EPI)NonAf 46.17 Random Glucose 152 H Uric Acid 2.3 L Calcium 7.4 L Phosphorus 5.4 H Magnesium Total Bilirubin 0.7 AST 85 H ALT 11 L Alkaline Phosphatase 197 H LD Total 625 H Total Protein 6.3 L Albumin 2.1 L Random Vancomycin Blood Type O POSITIVE Antibody Screen Negative Crossmatch See Detail 06/21/20 06/21/20 06/21/20 05:00 05:00 05:00 WBC 105.3 H* RBC 3.11 L Hgb 7.9 L Hct 26.3 L MCV 84.4 MCH 25.3 L MCHC 29.9 L RDW 19.4 H Plt Count 64 L MPV 9.9 Absolute Neuts (auto) 67.6 H Total Counted 100 Neutrophils % 64.3 Neutrophils % (Manual) 34.0 L D Band Neutrophils % 9.0 Lymphocytes % 9.4 D Lymphocytes % (Manual) 11.0 D Monocytes % 24.8 H Monocytes % (Manual) 9 Eosinophils % 0.2 D Eosinophils % (Manual) 1.0 D Basophils % 1.3 Myelocytes % (Man) Promyelocytes % (Man) Blast Cells % (Manual) 36 H D Nucleated RBC % 1 H Smudge Cells Platelet Estimate Adequate Platelet Comment Basophilic Stippling 2+ Spherocytes 1+ Tear Drop Cells 1+ Ovalocytes 1+ [place] Cells 1+ Anticoagulation Therapy Puncture Site Patient Temperature ABG pH ABG pCO2 ABG pO2 ABG HCO3 ABG O2 Sat (Measured) ABG O2 Content ABG Base Excess Rhett Test Patient On Oxygen O2 Delivery Device Oxygen Flow Rate Vent Mode Vent Rate Mechanical Rate PEEP Pressure Support Vent Sodium 135 L Potassium 4.4 Chloride 101 Carbon Dioxide 25 Anion Gap 9 BUN 40.6 H Creatinine 1.7 H Est GFR (CKD-EPI)AfAm 46.00 Est GFR (CKD-EPI)NonAf 39.69 Random Glucose 129 H Uric Acid 2.0 L Calcium 7.8 L Phosphorus 7.7 H Magnesium 2.5 H Total Bilirubin 0.7 AST 75 H ALT 7 L Alkaline Phosphatase 191 H LD Total 640 H Total Protein 6.2 L Albumin 2.0 L Random Vancomycin 12.6 Blood Type Antibody Screen Crossmatch 06/21/20 05:35 WBC RBC Hgb Hct MCV MCH MCHC RDW Plt Count MPV Absolute Neuts (auto) Total Counted Neutrophils % Neutrophils % (Manual) Band Neutrophils % Lymphocytes % Lymphocytes % (Manual) Monocytes % Monocytes % (Manual) Eosinophils % Eosinophils % (Manual) Basophils % Myelocytes % (Man) Promyelocytes % (Man) Blast Cells % (Manual) Nucleated RBC % Smudge Cells Platelet Estimate Platelet Comment Basophilic Stippling Spherocytes Tear Drop Cells Ovalocytes Bebeto Cells Anticoagulation Therapy No Result Required. Puncture Site Arterial line Patient Temperature No Result Required. ABG pH 7.246 L ABG pCO2 55.70 H ABG pO2 64.4 L ABG HCO3 23.7 ABG O2 Sat (Measured) 88.6 L ABG O2 Content No Result Required. ABG Base Excess -3.8 L Rhett Test Not applicable Patient On Oxygen Yes O2 Delivery Device Vent Oxygen Flow Rate 50% Vent Mode A/c Vent Rate 20 Mechanical Rate Yes PEEP 5.0 Pressure Support Vent 480 Sodium Potassium Chloride Carbon Dioxide Anion Gap BUN Creatinine Est GFR (CKD-EPI)AfAm Est GFR (CKD-EPI)NonAf Random Glucose Uric Acid Calcium Phosphorus Magnesium Total Bilirubin AST ALT Alkaline Phosphatase LD Total Total Protein Albumin Random Vancomycin Blood Type Antibody Screen Crossmatch Active Medications Generic Name Dose Route Start Last Admin Trade Name Freq PRN Reason Stop Dose Admin Acetaminophen 1,000 mg 06/21/20 16:30 Ofirmev Injection - IVPB 06/21/20 16:31 ONCE ONE Allopurinol 300 mg 06/20/20 10:00 06/21/20 09:28 Zyloprim - PO 300 mg DAILY ERMELINDA Administration Artificial Tears 1 drop 06/20/20 10:00 06/21/20 09:27 Artificial Tears OU 1 drop DAILY ERMELINDA Administration Atorvastatin Calcium 20 mg 06/19/20 22:00 06/20/20 21:09 Lipitor - PO Not Given HS ERMELINDA Docusate Sodium 100 mg 06/19/20 19:42 Colace - PO Q8H PRN CONSTIPATION Heparin Sodium (Porcine) 5,000 unit 06/21/20 14:00 06/21/20 15:41 Heparin - SQ 5,000 unit TID ERMELINDA Administration Hydrocortisone Sodium Succinate 50 mg 06/20/20 06:30 06/21/20 15:41 Solu-Cortef - IVPUSH 50 mg Q6H-IV ERMELINDA Administration Fentanyl 500 mcg in 100 mls @ 20 mls/hr 06/19/20 23:45 06/20/20 23:47 Sublimaze Ivpb IVPB 100 mcg/hr TITR ERMELINDA 20 mls/hr Administration 100 MCG/HR Propofol 1,000,000 mcg in 100 mls @ 2.618 mls/hr 06/20/20 00:30 06/21/20 12:25 Diprivan - IVPB 30 mcg/kg/min TITR ERMELINDA 15.709 mls/hr Administration Protocol 5 MCG/KG/MIN Vasopressin 40 units/ Sodium 100 mls @ 5 mls/hr 06/20/20 06:30 06/21/20 11:08 Chloride IVPB 2 units/hr ASDIR ERMELINDA 5 mls/hr Administration Protocol 2 UNITS/HR Norepinephrine Bitartrate 16, 500 mls @ 9.375 mls/hr 06/20/20 08:00 06/21/20 02:30 000 mcg/ Sodium Chloride IV 15 mcg/min TITR ERMELINDA 28.125 mls/hr Titration Protocol 5 MCG/MIN Sodium Chloride 250 mls @ 3,000 mls/hr 06/20/20 16:33 Normal Saline - IV 06/21/20 16:33 PRN PRN Hypotension during Dialysis Vancomycin HCl 1,000 mg in 250 mls @ 166.667 mls/hr 06/21/20 18:00 Vancomycin (Pre-Docked) IVPB 06/21/20 19:29 ONCE ONE Protocol Metronidazole 500 mg in 100 mls @ 100 mls/hr 06/21/20 18:00 Flagyl 500mg Premixed Ivpb - IVPB Q8H-IV ERMELINDA Cefepime HCl 1 gm/ Dextrose 100 mls @ 100 mls/hr 06/21/20 22:00 IVPB 06/22/20 21:59 BID [facility] Protocol Midazolam HCl 2 mg 06/19/20 22:24 06/20/20 00:17 Versed - IVPUSH 2 mg Q2H PRN Administration AGITATION Pantoprazole Sodium 40 mg 06/21/20 10:00 06/21/20 09:28 Protonix Iv IVPUSH 40 mg DAILY ERMELINDA Administration Polyethylene Glycol 17 gm 06/19/20 22:00 06/21/20 15:24 Miralax (For Daily Use) - PO Not Given BID [facility] ASSESSMENT/PLAN: 70 yo male pmh of HTN, HLD, CML to AML coming in to ICU for hypoxic resp failure due to bilateral pleural effusions and hypotensive on levo and vasopressin. Neuro - Keep pt sedated on fentanyl (100mcg/hr) propofol (5mcg/kg/min) and versed (2mg every 2hrs) - appreciate neuro consult for prior delirium - neuro check q1hr - CAT scan when stable Cardio: - echo normal of 06/15/20 - pt not tachycardic at time edema may be from hypoalbuminemia may stop lasix according to Cardiology - edema may be fixed with transfusion due to third spacing - Pt on levo 5mcg/min and vasopressin 2 units/hr Resp: - ABG follow up for tomorrow - titrate FiO2 to keep SpO2 >90% PEEP and FiO2 - Pt intubated 06/19 due to hypoxic resp failure continue volume assist control pt on Rate 24, PEEP 5, 50 FiO2, 480 volume Renal: - Pt was dialysized yesterday due to increased potassium - appreciate nephro recommendation - cont fluids Heme Onc: - Appreciate heme onc consult on CML to AML. Pt has tumor lysis syndrome from 06/19 rasburicase causing inc K and phos - will follow Uric acid and LDH due to tumor lysis syndrome - pt on 300 mg of allopurinorl GI - hold feeds ID -continue vanco by levels -continue cefepime -add flagyl - ID recommendations for possible UTI infection FIN: - Normal saline 1000 ml @42ml/hr hydration, monitor lytes Prophylaxis - heparin 5000 TID - Protonix for PUD Visit type - Emergency Visit Emergency Visit: Yes ED Registration Date: 06/14/20 Care time: The patient presented to the Emergency Department on the above date and was hospitalized for further evaluation of their emergent condition. - New Patient This patient is new to me today: Yes Date on this admission: 06/22/20 - Critical Care Critical Care patient: Yes Total Critical Care Time (in minutes): 36 Critical Care Statement: The care of this patient involved high complexity decision making to prevent further life threatening deterioration of the patient's condition and/or to evaluate & treat vital organ system(s) failure or risk of failure. - Medication Review Med list reviewed for High Risk Meds patients 65 and older: Yes ATTENDING PHYSICIAN STATEMENT I saw and evaluated the patient. I reviewed the resident's note and discussed the case with the resident. I agree with the resident's findings and plan as documented. SUBJECTIVE: OBJECTIVE: ASSESSMENT AND PLAN:
[2020-06-21] MEDS ORDERED: ACETAMINOPHEN 1000 MG/100 ML VIAL (NON FORMULARY) IVPB ONE (16:30)
[2020-06-21] MEDS ORDERED: FUROSEMIDE 40 MG/4 ML INJECTABLE VIAL IVPUSH ONE (17:09)
--- NOTE | 2020-06-21 17:09 | PN ---
Progress Note, Physician History of Present Illness: Pt seen and examined at bedside. He is now in the ICU. He required a session of HD yesterday for hyperkalemia. He is making urine. - Current Medication List Current Medications: Active Medications Allopurinol (Zyloprim -) 300 mg PO DAILY ERMELINDA Last Admin: 06/21/20 09:28 Dose: 300 mg Documented by: Artificial Tears (Artificial Tears) 1 drop OU DAILY ERMELINDA Last Admin: 06/21/20 09:27 Dose: 1 drop Documented by: Atorvastatin Calcium (Lipitor -) 20 mg PO HS ERMELINDA Last Admin: 06/20/20 21:09 Dose: Not Given Documented by: Docusate Sodium (Colace -) 100 mg PO Q8H PRN PRN Reason: CONSTIPATION Heparin Sodium (Porcine) (Heparin -) 5,000 unit SQ TID ERMELINDA Last Admin: 06/21/20 15:41 Dose: 5,000 unit Documented by: Hydrocortisone Sodium Succinate (Solu-Cortef -) 50 mg IVPUSH Q6H-IV ERMELINDA Last Admin: 06/21/20 15:41 Dose: 50 mg Documented by: Fentanyl (Sublimaze Ivpb) 500 mcg in 100 mls @ 20 mls/hr IVPB TITR ERMELINDA Last Admin: 06/20/20 23:47 Dose: 100 mcg/hr, 20 mls/hr Documented by: Propofol (Diprivan -) 1,000,000 mcg in 100 mls @ 2.618 mls/hr IVPB TITR ERMELINDA; Protocol Last Admin: 06/21/20 16:26 Dose: 40 mcg/kg/min, 20.945 mls/hr Documented by: Vasopressin 40 units/ Sodium (Chloride) 100 mls @ 5 mls/hr IVPB ASDIR ERMELINDA; Prot ocol Last Admin: 06/21/20 11:08 Dose: 2 units/hr, 5 mls/hr Documented by: Norepinephrine Bitartrate 16, (000 mcg/ Sodium Chloride) 500 mls @ 9.375 mls/hr IV TITR ERMELINDA; Protocol Last Titration: 06/21/20 02:30 Dose: 15 mcg/min, 28.125 mls/hr Documented by: Sodium Chloride (Normal Saline -) 250 mls @ 3,000 mls/hr IV PRN PRN PRN Reason: Hypotension during Dialysis Stop: 06/21/20 16:33 Vancomycin HCl (Vancomycin (Pre-Docked)) 1,000 mg in 250 mls @ 166.667 mls/hr IVPB ONCE ONE; Protocol Stop: 06/21/20 19:29 Metronidazole (Flagyl 500mg Premixed Ivpb -) 500 mg in 100 mls @ 100 mls/hr IVP B Q8H-IV ERMELINDA Cefepime HCl 1 gm/ Dextrose 100 mls @ 100 mls/hr IVPB BID ERMELINDA; Protocol Stop: 06/22/20 21:59 Midazolam HCl (Versed -) 2 mg IVPUSH Q2H PRN PRN Reason: AGITATION Last Admin: 06/20/20 00:17 Dose: 2 mg Documented by: Pantoprazole Sodium (Protonix Iv) 40 mg IVPUSH DAILY ERMELINDA Last Admin: 06/21/20 09:28 Dose: 40 mg Documented by: Polyethylene Glycol (Miralax (For Daily Use) -) 17 gm PO BID ERMELINDA Last Admin: 06/21/20 15:24 Dose: Not Given Documented by: - Objective Vital Signs: Vital Signs Temperature 102.1 F H 06/21/20 16:00 Pulse Rate 96 H 06/21/20 16:00 Respiratory Rate 24 H 06/21/20 16:21 Blood Pressure 132/55 L 06/21/20 16:00 O2 Sat by Pulse Oximetry (%) 95 06/21/20 16:21 Constitutional: Yes: Calm Eyes: Yes: Conjunctiva Clear HENT: Yes: Atraumatic Neck: Yes: Supple Cardiovascular: Yes: S1, S2 Respiratory: Yes: Mechanically Ventilated Gastrointestinal: Yes: Normal Bowel Sounds, Soft Genitourinary: Yes: García Present Edema: Yes Edema: LLE: 2+, RLE: 2+ Neurological: Yes: Lethargy Labs: CBC, BMP 06/21/20 05:00 06/21/20 05:00 INR, PTT INR 1.31 (0.83-1.09) H 06/14/20 19:20 Fibrinogen > 500.0 mg/dL (238-498) H 06/14/20 19:20 - ....Imaging Chest X-ray: Report Reviewed Assessment/Plan Current Medications Generic Name Dose Route Start Last Admin Trade Name Freq PRN Reason Stop Dose Admin Allopurinol 300 mg 06/20/20 10:00 06/21/20 09:28 Zyloprim - PO 300 mg DAILY ERMELINDA Administration Artificial Tears 1 drop 06/20/20 10:00 06/21/20 09:27 Artificial Tears OU 1 drop DAILY ERMELINDA Administration Atorvastatin Calcium 20 mg 06/19/20 22:00 06/20/20 21:09 Lipitor - PO Not Given HS ERMELINDA Docusate Sodium 100 mg 06/19/20 19:42 Colace - PO Q8H PRN CONSTIPATION Heparin Sodium (Porcine) 5,000 unit 06/21/20 14:00 06/21/20 15:41 Heparin - SQ 5,000 unit TID ERMELINDA Administration Hydrocortisone Sodium Succinate 50 mg 06/20/20 06:30 06/21/20 15:41 Solu-Cortef - IVPUSH 50 mg Q6H-IV ERMELINDA Administration Fentanyl 500 mcg in 100 mls @ 20 mls/hr 06/19/20 23:45 06/20/20 23:47 Sublimaze Ivpb IVPB 100 mcg/hr TITR ERMELINDA 20 mls/hr Administration 100 MCG/HR Propofol 1,000,000 mcg in 100 mls @ 2.618 mls/hr 06/20/20 00:30 06/21/20 16:26 Diprivan - IVPB 40 mcg/kg/min TITR ERMELINDA 20.945 mls/hr Administration Protocol 5 MCG/KG/MIN Vasopressin 40 units/ Sodium 100 mls @ 5 mls/hr 06/20/20 06:30 06/21/20 11:08 Chloride IVPB 2 units/hr ASDIR ERMELINDA 5 mls/hr Administration Protocol 2 UNITS/HR Norepinephrine Bitartrate 16, 500 mls @ 9.375 mls/hr 06/20/20 08:00 06/21/20 02:30 000 mcg/ Sodium Chloride IV 15 mcg/min TITR ERMELINDA 28.125 mls/hr Titration Protocol 5 MCG/MIN Sodium Chloride 250 mls @ 3,000 mls/hr 06/20/20 16:33 Normal Saline - IV 06/21/20 16:33 PRN PRN Hypotension during Dialysis Vancomycin HCl 1,000 mg in 250 mls @ 166.667 mls/hr 06/21/20 18:00 Vancomycin (Pre-Docked) IVPB 06/21/20 19:29 ONCE ONE Protocol Metronidazole 500 mg in 100 mls @ 100 mls/hr 06/21/20 18:00 Flagyl 500mg Premixed Ivpb - IVPB Q8H-IV ERMELINDA Cefepime HCl 1 gm/ Dextrose 100 mls @ 100 mls/hr 06/21/20 22:00 IVPB 06/22/20 21:59 BID ERMELINDA Protocol Midazolam HCl 2 mg 06/19/20 22:24 06/20/20 00:17 Versed - IVPUSH 2 mg Q2H PRN Administration AGITATION Pantoprazole Sodium 40 mg 06/21/20 10:00 06/21/20 09:28 Protonix Iv IVPUSH 40 mg DAILY ERMELINDA Administration Polyethylene Glycol 17 gm 06/19/20 22:00 06/21/20 15:24 Miralax (For Daily Use) - PO Not Given BID ERMELINDA Laboratory Tests 06/21/20 05:00 Uric Acid 2.0 L Phosphorus 7.7 H Impression 1. CKD 2. CML 3. AML 4. pleural effusions 5. htn 6. tumor lysis 7. charisse 8. hyperkalemia 9. acuter resp failure Plan - pt is making urine - renal function improving - cont with fluids - can give lasix - monitor lytes closely - monitor volume status - cont vent support - start phis binder - oncology follow up
[2020-06-21] MEDS ORDERED: SODIUM CHLORIDE 1,000 ML IV SCH (17:15)
[2020-06-21] MEDS: NOREPINEPHRINE BITARTRATE 16,000 MCG in SODIUM CHLORIDE 484 ML IV SCH (17:24)
[2020-06-21] MEDS: SEVELAMER CARBONATE 2.4 GM POWDER PACKET PO SCH (17:33)
[2020-06-21] MEDS ORDERED: VANCOMYCIN 1 GRAM (PRE-DOCKED) 1,000 MG/250 ML BAG IVPB ONE (18:00)
[2020-06-21] MEDS: FENTANYL IVPB 500 MCG/100 ML BAG IVPB SCH (18:37)
--- NOTE | 2020-06-21 18:54 | PN.HO ---
Progress Note (short form) - Note Progress Note: PAtient seen and examined Febrile to 104.7 Rising K and phos diagnostic of tumor lysis discussed this with his sister at bed side AFVSS Cor: RSR, No murmurs, No gallops Lungs: decreased at abses Abd: Soft, Normal bowel sounds, distended,+++ splenomegaly. 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 WBC 198,000. 30% blasts s/p rasburicase 6mg IVSS x 1 dose 06/14 G-6 PD -- not deficient s/p 5 doses decitabine completed 06/19/20 hydrea 1gbid held due to ongoing tumor lysis TUMOR LYSIS --- febrile to 104.7 06/19 PM / RIsing K and Phos s/p 2nd dose rasburicase on 06/19 IV Fluids Discussed with nephrology team --- - EMergent dialysis as oliguric with rising K/Phos on 06/20/[address] a/p -- Rt. > lt. pleural effusions. Hepatosplenomegaly. Perisplenic fluid collection. Diverticulosis to correlate clinically for diverticulitis Blood cultures negative Continue empiric antibiotics OVerall guarded prognosis Discussed with renal and icu teams
[2020-06-21] MEDS ORDERED: DEXTROSE 5%-WATER 100 ML IVPB ONE (20:43)
[2020-06-21] MEDS ORDERED: CEFEPIME HCL 1 GM VIAL (RESTRICTED TO ID) ONE (20:43)
[2020-06-21] MEDS: ATORVASTATIN CA 20 MG TABLET (FP) PO SCH (21:47)
[2020-06-21] MEDS: CEFEPIME 1 GM in DEXTROSE 5%-WATER 100 ML IVPB SCH (21:47)
--- NOTE | 2020-06-21 21:52 | EKG ---
Test Reason : Blood Pressure : / mmHG Vent. Rate : 115 BPM Atrial Rate : 115 BPM P-R Int : 164 ms QRS Dur : 146 ms QT Int : 358 ms P-R-T Axes : 004 -28 026 degrees QTc Int : 495 ms SINUS TACHYCARDIA POSSIBLE LEFT ATRIAL ENLARGEMENT RIGHT BUNDLE BRANCH BLOCK ABNORMAL ECG WHEN COMPARED WITH ECG OF 13-JUN-2020 18:41, NO SIGNIFICANT CHANGE WAS FOUND Confirmed by MARTHA ROJO MD ([id number]) on 06/21/2020 9:51:37 PM Referred By: Anel JUNG Confirmed By:MARTHA ROJO MD
[2020-06-22] MEDS: FENTANYL IVPB 500 MCG/100 ML BAG IVPB SCH ×2 (00:53→15:37)
[2020-06-22] MEDS: PROPOFOL 1,000,000 MCG/100 ML VIAL IVPB SCH ×4 (00:53→18:53)
[2020-06-22] MEDS ORDERED: PT OWN MED DRAWER 7, Y5N ONE ×6 (01:29→23:12)
[2020-06-22] MEDS: HYDROCORTISONE SOD SUCCINATE 100 MG/2 ML VIAL IVPUSH SCH ×4 (02:10→22:47)
[2020-06-22] MEDS: HEPARIN NA (PORCINE) 5,000 UNITS/ML 1ML VIAL SQ SCH ×3 (05:56→22:47)
[2020-06-22] MEDS: VASOPRESSIN 40 UNITS in SODIUM CHLORIDE 98 ML IVPB SCH ×2 (05:57→09:28)
[2020-06-22 06:27] LABS: ARTERIAL BLD GAS O2 SATURATION 94.9 mmHg (95-98); ARTERIAL BLOOD GAS PO2 76.5 mmHg (80-100)
[2020-06-22 06:40] LABS: VENT MODE A/C; VENT RATE 24
[2020-06-22 07:00] LABS: HEMATOCRIT 23.9 % (35.4-49); HEMOGLOBIN 7.5 GM/dL (11.7-16.9); MCH 25.9 pg (25.7-33.7); MCHC 31.2 g/dl (32.0-35.9); MEAN CELL VOLUME 83.1 fl (80-96); MEAN PLT VOLUME 9.9 fl (7.5-11.1); PLATELET COUNT 52 K/MM3 (134-434); RBC 2.87 M/mm3 (4.00-5.60); RDW 19.4 % (11.9-15.9)
[2020-06-22 07:34] LABS: ALBUMIN 1.7 g/dl (3.4-5.0); BILIRUBIN,TOTAL 0.7 mg/dL (0.2-1); BLOOD UREA NITROGEN 51.6 mg/dL (7-18); CALCIUM 7.4 mg/dL (8.5-10.1); CREATININE 1.7 mg/dL (0.55-1.3); MAGNESIUM 2.2 mg/dL (1.8-2.4); PHOSPHOROUS 6.4 mg/dL (2.5-4.9); POTASSIUM 4.2 mmol/L (3.5-5.1); TOT PROT 5.6 g/dl (6.4-8.2); URIC ACID 4.8 mg/dL (2.6-7.2)
[2020-06-22] MEDS: NOREPINEPHRINE BITARTRATE 16,000 MCG in SODIUM CHLORIDE 484 ML IV SCH ×2 (08:00→15:38)
[2020-06-22] MEDS: SEVELAMER CARBONATE 2.4 GM POWDER PACKET PO SCH ×3 (08:34→17:39)
[2020-06-22] MEDS ORDERED: DOCUSATE NA 100 MG/10 ML UNIT-DOSE CUPS PO PRN (08:55)
[2020-06-22] MEDS ORDERED: CEFEPIME HCL 1 GM VIAL (RESTRICTED TO ID) ONE ×2 (09:16→09:41)
[2020-06-22] MEDS ORDERED: DEXTROSE 5%-WATER 100 ML IVPB ONE ×2 (09:17→09:42)
[2020-06-22] MEDS: PANTOPRAZOLE SODIUM 40 MG VIAL IVPUSH SCH (09:22)
[2020-06-22] MEDS: ALLOPURINOL 300 MG TABLET (FP) PO SCH (09:26)
[2020-06-22] MEDS: ARTIFICIAL TEARS (POLYVINYL ALCOHOL) OPTH DROPS OU SCH (09:29)
[2020-06-22] MEDS: CEFEPIME 1 GM in DEXTROSE 5%-WATER 100 ML IVPB SCH (09:44)
--- NOTE | 2020-06-22 12:16 | PN ---
Teaching Attending Note Name of Resident: Rudy Sanabria ATTENDING PHYSICIAN STATEMENT I saw and evaluated the patient. I reviewed the resident's note and discussed the case with the resident. I agree with the resident's findings and plan as documented. SUBJECTIVE: Pt seen and examined in the ICU. Remains intubated, sedated on levophed and vasopressin gtts but on lower doses. Vented on volume assist control with 50% FiO2. OBJECTIVE: Vital Signs Period Temp Pulse Resp BP Sys/Carrillo Pulse Ox Last 24 Hr 98.8 F-102.1 F 72-96 24-24 85-156/47-66 95-100 Intake & Output 06/19/20 06/20/20 06/21/20 06/22/20 23:59 23:59 23:59 23:59 Intake Total 1510 5034 2232.5 1720 Output Total 180 8585 1280 1700 Balance 1330 -3551 952.5 20 Weight 87.271 kg 87.2 kg 87.044 kg 81.9 kg Gen: intubated, sedated Heart: RRR Lung: scattered rhonchi Abd: soft, nontender Ext: + edema CBC, BMP 06/22/20 05:30 06/22/20 05:30 ABG Results ABG pH 7.370 (7.350-7.450) 06/22/20 06:00 ABG HCO3 24.2 mmol/L (22-27) 06/22/20 06:00 ABG O2 Sat (Measured) 94.9 mmHg (95-98) L 06/22/20 06:00 ABG O2 Content No Result Required. 06/22/20 06:00 ABG Base Excess -1.0 mmol/L (-2-2) 06/22/20 06:00 Active Medications Acetaminophen (Ofirmev Injection -) 1,000 mg IVPB Q8H PRN PRN Reason: FEVER Allopurinol (Zyloprim -) 300 mg PO DAILY ERMELINDA Last Admin: 06/22/20 09:26 Dose: 300 mg Documented by: Artificial Tears (Artificial Tears) 1 drop OU DAILY ERMELINDA Last Admin: 06/22/20 09:29 Dose: 1 drop Documented by: Atorvastatin Calcium (Lipitor -) 20 mg PO HS ERMELINDA Last Admin: 06/21/20 21:47 Dose: 20 mg Documented by: Docusate Sodium (Colace Liquid -) 100 mg PO Q8H PRN PRN Reason: CONSTIPATION Heparin Sodium (Porcine) (Heparin -) 5,000 unit SQ TID ERMELINDA Last Admin: 06/22/20 05:56 Dose: 5,000 unit Documented by: Hydrocortisone Sodium Succinate (Solu-Cortef -) 50 mg IVPUSH Q6H-IV ERMELINDA Last Admin: 06/22/20 08:33 Dose: 50 mg Documented by: Fentanyl (Sublimaze Ivpb) 500 mcg in 100 mls @ 20 mls/hr IVPB TITR ERMELINDA Last Titration: 06/22/20 07:40 Dose: 100 mcg/hr, 20 mls/hr Documented by: Propofol (Diprivan -) 1,000,000 mcg in 100 mls @ 2.618 mls/hr IVPB TITR ERMELINDA; Protocol Last Admin: 06/22/20 09:26 Dose: 45 mcg/kg/min, 23.563 mls/hr Documented by: Vasopressin 40 units/ Sodium (Chloride) 100 mls @ 5 mls/hr IVPB ASDIR ERMELINDA; Protocol Last Admin: 06/22/20 09:28 Dose: 2 units/hr, 5 mls/hr Documented by: Norepinephrine Bitartrate 16, (000 mcg/ Sodium Chloride) 500 mls @ 9.375 mls/hr IV TITR ERMELINDA; Protocol Last Titration: 06/22/20 08:20 Dose: 5 mcg/min, 9.375 mls/hr Documented by: Sodium Chloride (Normal Saline -) 250 mls @ 3,000 mls/hr IV PRN PRN PRN Reason: Hypotension during Dialysis Stop: 06/21/20 16:33 Metronidazole (Flagyl 500mg Premixed Ivpb -) 500 mg in 100 mls @ 100 mls/hr IVPB Q8H-IV ERMELINDA Last Admin: 06/22/20 09:24 Dose: 100 mls/hr Documented by: Cefepime HCl 1 gm/ Dextrose 100 mls @ 100 mls/hr IVPB BID ERMELINDA; Protocol Stop: 06/22/20 21:59 Last Admin: 06/22/20 09:44 Dose: 100 mls/hr Documented by: Sodium Chloride (Normal Saline -) 1,000 mls @ 42 mls/hr IV ASDIR ERMELINDA Last Admin: 06/21/20 17:23 Dose: 42 mls/hr Documented by: Midazolam HCl (Versed -) 2 mg IVPUSH Q2H PRN PRN Reason: AGITATION Last Admin: 06/20/20 00:17 Dose: 2 mg Documented by: Pantoprazole Sodium (Protonix Iv) 40 mg IVPUSH DAILY [facility] Last Admin: 06/22/20 09:22 Dose: 40 mg Documented by: Polyethylene Glycol (Miralax (For Daily Use) -) 17 gm PO BID [facility] Last Admin: 06/21/20 21:52 Dose: 17 gm Documented by: Sevelamer Carbonate (Renvela Powder Packet -) 2.4 gm PO TIDCM [facility] Last Admin: 06/22/20 08:34 Dose: 2.4 gm Documented by: ASSESSMENT AND PLAN: 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
--- NOTE | 2020-06-22 12:37 | PN ---
Physical Exam: SUBJECTIVE: Patient seen and examined. Pt is intubated and sedated. OBJECTIVE: Vital Signs Period Temp Pulse Resp BP Sys/Carrillo Pulse Ox Last 24 Hr 98.8 F-102.1 F 72-96 24-24 85-156/47-66 95-100 GENERAL: The patient is intubated and sedated . HEAD: Normal with no signs of trauma. ENT: Ears normal, nares patent, intubated NECK: Trachea midline, supple. LUNGS: bilateral rhonchi HEART: Regular rate and rhythm, S1, S2 without murmur, rub or gallop. ABDOMEN: distended no grimacing, splenomegaly EXTREMITIES: 2+ pulses bilateral lower ext 2+ edema SKIN: Warm, dry, normal turgor, no rashes or lesions noted Laboratory Results - last 24 hr 06/20/20 06/21/20 06/21/20 19:30 05:00 14:45 WBC RBC Hgb Hct MCV MCH MCHC RDW Plt Count MPV Anticoagulation Therapy Puncture Site Patient Temperature ABG pH ABG pCO2 ABG pO2 ABG HCO3 ABG O2 Sat (Measured) ABG O2 Content ABG Base Excess Rhett Test Patient On Oxygen O2 Delivery Device Oxygen Flow Rate Vent Mode Vent Rate Mechanical Rate PEEP Pressure Support Vent Sodium 135 L Potassium 4.4 Chloride 101 Carbon Dioxide 25 Anion Gap 9 BUN 40.6 H Creatinine 1.7 H Est GFR (CKD-EPI)AfAm 46.00 Est GFR (CKD-EPI)NonAf 39.69 Random Glucose 129 H Uric Acid 2.0 L Calcium 7.8 L Phosphorus 7.7 H Magnesium 2.5 H Total Bilirubin 0.7 AST 75 H ALT 7 L Alkaline Phosphatase 191 H LD Total 640 H Total Protein 6.2 L Albumin 2.0 L Stool Occult Blood Negative Hep C Ab Diagnostic 0.1 06/22/20 06/22/20 06/22/20 05:30 05:30 06:00 WBC 64.0 H* RBC 2.87 L Hgb 7.5 L Hct 23.9 L MCV 83.1 MCH 25.9 MCHC 31.2 L RDW 19.4 H Plt Count 52 L MPV 9.9 Anticoagulation Therapy No Result Required. Puncture Site Arterial line Patient Temperature 99.0 ABG pH 7.370 ABG pCO2 42.90 ABG pO2 76.5 L ABG HCO3 24.2 ABG O2 Sat (Measured) 94.9 L ABG O2 Content No Result Required. ABG Base Excess -1.0 Rhett Test Not applicable Patient On Oxygen Yes O2 Delivery Device Vent Oxygen Flow Rate 50% Vent Mode A/c Vent Rate 24 Mechanical Rate Yes PEEP 5.0 Pressure Support Vent 480 Sodium 136 Potassium 4.2 Chloride 101 Carbon Dioxide 24 Anion Gap 11 BUN 51.6 H Creatinine 1.7 H Est GFR (CKD-EPI)AfAm 46.00 Est GFR (CKD-EPI)NonAf 39.69 Random Glucose 129 H Uric Acid 4.8 Calcium 7.4 L Phosphorus 6.4 H Magnesium 2.2 Total Bilirubin 0.7 AST 63 H ALT 7 L Alkaline Phosphatase 164 H LD Total 572 H Total Protein 5.6 L Albumin 1.7 L Stool Occult Blood Hep C Ab Diagnostic Active Medications Generic Name Dose Route Start Last Admin Trade Name Freq PRN Reason Stop Dose Admin Acetaminophen 1,000 mg 06/22/20 11:36 Ofirmev Injection - IVPB Q8H PRN FEVER Allopurinol 300 mg 06/20/20 10:00 06/22/20 09:26 Zyloprim - PO 300 mg DAILY ERMELINDA Administration Artificial Tears 1 drop 06/20/20 10:00 06/22/20 09:29 Artificial Tears OU 1 drop DAILY ERMELINDA Administration Atorvastatin Calcium 20 mg 06/19/20 22:00 06/21/20 21:47 Lipitor - PO 20 mg HS ERMELINDA Administration Docusate Sodium 100 mg 06/22/20 08:55 Colace Liquid - PO Q8H PRN CONSTIPATION Heparin Sodium (Porcine) 5,000 unit 06/21/20 14:00 06/22/20 05:56 Heparin - SQ 5,000 unit TID ERMELINDA Administration Hydrocortisone Sodium Succinate 50 mg 06/20/20 06:30 06/22/20 08:33 Solu-Cortef - IVPUSH 50 mg Q6H-IV ERMELINDA Administration Fentanyl 500 mcg in 100 mls @ 20 mls/hr 06/19/20 23:45 06/22/20 07:40 Sublimaze Ivpb IVPB 100 mcg/hr TITR ERMELINDA 20 mls/hr Titration 100 MCG/HR Propofol 1,000,000 mcg in 100 mls @ 2.618 mls/hr 06/20/20 00:30 06/22/20 09:26 Diprivan - IVPB 45 mcg/kg/min TITR ERMELINDA 23.563 mls/hr Administration Protocol 5 MCG/KG/MIN Vasopressin 40 units/ Sodium 100 mls @ 5 mls/hr 06/20/20 06:30 06/22/20 09:28 Chloride IVPB 2 units/hr ASDIR ERMELINDA 5 mls/hr Administration Protocol 2 UNITS/HR Norepinephrine Bitartrate 16, 500 mls @ 9.375 mls/hr 06/20/20 08:00 06/22/20 08:20 000 mcg/ Sodium Chloride IV 5 mcg/min TITR ERMELINDA 9.375 mls/hr Titration Protocol 5 MCG/MIN Sodium Chloride 250 mls @ 3,000 mls/hr 06/20/20 16:33 Normal Saline - IV 06/21/20 16:33 PRN PRN Hypotension during Dialysis Metronidazole 500 mg in 100 mls @ 100 mls/hr 06/21/20 18:00 06/22/20 09:24 Flagyl 500mg Premixed Ivpb - IVPB 100 mls/hr Q8H-IV ERMELINDA Administration Cefepime HCl 1 gm/ Dextrose 100 mls @ 100 mls/hr 06/21/20 22:00 06/22/20 09:44 IVPB 06/22/20 21:59 100 mls/hr BID ERMELINDA Administration Protocol Sodium Chloride 1,000 mls @ 42 mls/hr 06/21/20 17:15 06/21/20 17:23 Normal Saline - IV 42 mls/hr ASDIR ERMELINDA Administration Midazolam HCl 2 mg 06/19/20 22:24 06/20/20 00:17 Versed - IVPUSH 2 mg Q2H PRN Administration AGITATION Pantoprazole Sodium 40 mg 06/21/20 10:00 06/22/20 09:22 Protonix Iv IVPUSH 40 mg DAILY ERMELINDA Administration Polyethylene Glycol 17 gm 06/19/20 22:00 06/21/20 21:52 Miralax (For Daily Use) - PO 17 gm BID ERMELINDA Administration Sevelamer Carbonate 2.4 gm 06/21/20 17:30 06/22/20 08:34 Renvela Powder Packet - PO 2.4 gm TIDCM ERMELINDA Administration ASSESSMENT/PLAN: 70 yo male pmh of HTN, HLD, CML to AML coming in to ICU for hypoxic resp failure due to bilateral pleural effusions and hypotensive on levo and vasopressin. Neuro - Keep pt sedated on fentanyl (100mcg/hr) propofol (5mcg/kg/min) and versed (2mg every 2hrs) - appreciate neuro consult for prior delirium - neuro check q1hr - CAT scan when stable Cardio: - echo normal of 06/15/20 - pt not tachycardic at time edema may be from hypoalbuminemia may stop lasix according to Cardiology - edema may be fixed with transfusion due to third spacing - Pt on levo 5mcg/min and vasopressin 2 units/hr will come down on pressors. Resp: - titrate FiO2 to keep SpO2 >90% PEEP and FiO2. Pt vent settings currently Rate 24/ PEEP 5 FiO2 40 (lowered from 50) Tidal Volume 408 - Pt intubated 06/19 due to hypoxic resp failure continue volume assist control pt on Rate 24, PEEP 5, 50 FiO2, 480 volume Renal: - appreciate nephro recommendation renal function stable - repeat labs in am - cont fluids and lasix prn - cont pressors to map 65 - repeat labs in am - phos improving - no indication for hd - monitor urine output Heme Onc: - Appreciate heme onc consult on CML to AML. 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 GI - Pt feeds restarted. On Neppro ID -No need for further vanco -continue cefepime -add flagyl - ID recommendations for possible UTI infection - Tylenol prn 1000 every 8 hrs - Blood cultures recultured FIN: - Fluids halted pt started on feed, hydration, monitor lytes Prophylaxis - heparin 5000 TID - Protonix for PUD Visit type - Emergency Visit Emergency Visit: Yes ED Registration Date: 06/14/20 Care time: The patient presented to the Emergency Department on the above date and was hospitalized for further evaluation of their emergent condition. - New Patient This patient is new to me today: No - Critical Care Critical Care patient: Yes Total Critical Care Time (in minutes): 36 Critical Care Statement: The care of this patient involved high complexity decision making to prevent further life threatening deterioration of the patient's condition and/or to evaluate & treat vital organ system(s) failure or risk of failure. - Medication Review Med list reviewed for High Risk Meds patients 65 and older: Yes ATTENDING PHYSICIAN STATEMENT I saw and evaluated the patient. I reviewed the resident's note and discussed the case with the resident. I agree with the resident's findings and plan as documented. SUBJECTIVE: OBJECTIVE: ASSESSMENT AND PLAN:
[2020-06-22] MEDS ORDERED: FUROSEMIDE 40 MG/4 ML INJECTABLE VIAL IVPUSH ONE (13:28)
--- NOTE | 2020-06-22 13:28 | PN ---
Progress Note, Physician History of Present Illness: Pt seen and examined at bedside. He remains in the ICU. He remains intubated. - Current Medication List Current Medications: Active Medications Acetaminophen (Ofirmev Injection -) 1,000 mg IVPB Q8H PRN PRN Reason: FEVER Allopurinol (Zyloprim -) 300 mg PO DAILY ERMELINDA Last Admin: 06/22/20 09:26 Dose: 300 mg Documented by: Amino Acids (Prosource No Carb Liquid Pkt) 30 ml PO BID@0800,1730 ERMELINDA Artificial Tears (Artificial Tears) 1 drop OU DAILY ERMELINDA Last Admin: 06/22/20 09:29 Dose: 1 drop Documented by: Atorvastatin Calcium (Lipitor -) 20 mg PO HS ERMELINDA Last Admin: 06/21/20 21:47 Dose: 20 mg Documented by: Docusate Sodium (Colace Liquid -) 100 mg PO Q8H PRN PRN Reason: CONSTIPATION Heparin Sodium (Porcine) (Heparin -) 5,000 unit SQ TID ERMELINDA Last Admin: 06/22/20 13:12 Dose: 5,000 unit Documented by: Hydrocortisone Sodium Succinate (Solu-Cortef -) 50 mg IVPUSH Q6H-IV ERMELINDA Last Admin: 06/22/20 08:33 Dose: 50 mg Documented by: Fentanyl (Sublimaze Ivpb) 500 mcg in 100 mls @ 20 mls/hr IVPB TITR ERMELINDA Last Titration: 06/22/20 07:40 Dose: 100 mcg/hr, 20 mls/hr Documented by: Propofol (Diprivan -) 1,000,000 mcg in 100 mls @ 2.618 mls/hr IVPB TITR ERMELINDA; Protocol Last Admin: 06/22/20 09:26 Dose: 45 mcg/kg/min, 23.563 mls/hr Documented by: Vasopressin 40 units/ Sodium (Chloride) 100 mls @ 5 mls/hr IVPB ASDIR ERMELINDA; P rotocol Last Admin: 06/22/20 09:28 Dose: 2 units/hr, 5 mls/hr Documented by: Norepinephrine Bitartrate 16, (000 mcg/ Sodium Chloride) 500 mls @ 9.375 mls/hr IV TITR ERMELINDA; Protocol Last Titration: 06/22/20 08:20 Dose: 5 mcg/min, 9.375 mls/hr Documented by: Sodium Chloride (Normal Saline -) 250 mls @ 3,000 mls/hr IV PRN PRN PRN Reason: Hypotension during Dialysis Stop: 06/21/20 16:33 Metronidazole (Flagyl 500mg Premixed Ivpb -) 500 mg in 100 mls @ 100 mls/hr IVPB Q8H-IV ERMELINDA Last Admin: 06/22/20 09:24 Dose: 100 mls/hr Documented by: Cefepime HCl 1 gm/ Dextrose 100 mls @ 100 mls/hr IVPB BID [facility]; Protocol Stop: 06/22/20 21:59 Last Admin: 06/22/20 09:44 Dose: 100 mls/hr Documented by: Sodium Chloride (Normal Saline -) 1,000 mls @ 42 mls/hr IV ASDIR [facility] Last Admin: 06/21/20 17:23 Dose: 42 mls/hr Documented by: Midazolam HCl (Versed -) 2 mg IVPUSH Q2H PRN PRN Reason: AGITATION Last Admin: 06/20/20 00:17 Dose: 2 mg Documented by: Pantoprazole Sodium (Protonix Iv) 40 mg IVPUSH DAILY [facility] Last Admin: 06/22/20 09:22 Dose: 40 mg Documented by: Polyethylene Glycol (Miralax (For Daily Use) -) 17 gm PO BID [facility] Last Admin: 06/21/20 21:52 Dose: 17 gm Documented by: Sevelamer Carbonate (Renvela Powder Packet -) 2.4 gm PO TIDCM [facility] Last Admin: 06/22/20 12:47 Dose: 2.4 gm Documented by: - Objective Vital Signs: Vital Signs Temperature 99.8 F H 06/22/20 13:00 Pulse Rate 68 06/22/20 13:00 Respiratory Rate 24 H 06/22/20 13:00 Blood Pressure 118/54 L 06/22/20 13:00 O2 Sat by Pulse Oximetry (%) 96 06/22/20 13:00 Constitutional: Yes: Calm Eyes: Yes: Conjunctiva Clear HENT: Yes: Atraumatic Neck: Yes: Supple Cardiovascular: Yes: S1, S2 Respiratory: Yes: Mechanically Ventilated Gastrointestinal: Yes: Normal Bowel Sounds, Soft Genitourinary: Yes: García Present Edema: Yes Edema: LUE: 1+, RUE: 1+, LLE: 1+, RLE: 1+ Neurological: Yes: Lethargy Labs: CBC, BMP 06/22/20 05:30 06/22/20 05:30 INR, PTT INR 1.31 (0.83-1.09) H 06/14/20 19:20 Fibrinogen > 500.0 mg/dL (238-498) H 06/14/20 19:20 - ....Imaging Chest X-ray: Report Reviewed Assessment/Plan Current Medications Generic Name Dose Route Start Last Admin Trade Name Freq PRN Reason Stop Dose Admin Acetaminophen 1,000 mg 06/22/20 11:36 Ofirmev Injection - IVPB Q8H PRN FEVER Allopurinol 300 mg 06/20/20 10:00 06/22/20 09:26 Zyloprim - PO 300 mg DAILY ERMELINDA Administration Amino Acids 30 ml 06/22/20 17:30 Prosource No Carb Liquid Pkt PO BID@0800,1730 ERMELINDA Artificial Tears 1 drop 06/20/20 10:00 06/22/20 09:29 Artificial Tears OU 1 drop DAILY ERMELINDA Administration Atorvastatin Calcium 20 mg 06/19/20 22:00 06/21/20 21:47 Lipitor - PO 20 mg HS ERMELINDA Administration Docusate Sodium 100 mg 06/22/20 08:55 Colace Liquid - PO Q8H PRN CONSTIPATION Heparin Sodium (Porcine) 5,000 unit 06/21/20 14:00 06/22/20 13:12 Heparin - SQ 5,000 unit TID ERMELINDA Administration Hydrocortisone Sodium Succinate 50 mg 06/20/20 06:30 06/22/20 08:33 Solu-Cortef - IVPUSH 50 mg Q6H-IV ERMELINDA Administration Fentanyl 500 mcg in 100 mls @ 20 mls/hr 06/19/20 23:45 06/22/20 07:40 Sublimaze Ivpb IVPB 100 mcg/hr TITR ERMELINDA 20 mls/hr Titration 100 MCG/HR Propofol 1,000,000 mcg in 100 mls @ 2.618 mls/hr 06/20/20 00:30 06/22/20 09:26 Diprivan - IVPB 45 mcg/kg/min TITR ERMELINDA 23.563 mls/hr Administration Protocol 5 MCG/KG/MIN Vasopressin 40 units/ Sodium 100 mls @ 5 mls/hr 06/20/20 06:30 06/22/20 09:28 Chloride IVPB 2 units/hr ASDIR ERMELINDA 5 mls/hr Administration Protocol 2 UNITS/HR Norepinephrine Bitartrate 16, 500 mls @ 9.375 mls/hr 06/20/20 08:00 06/22/20 08:20 000 mcg/ Sodium Chloride IV 5 mcg/min TITR ERMELINDA 9.375 mls/hr Titration Protocol 5 MCG/MIN Sodium Chloride 250 mls @ 3,000 mls/hr 06/20/20 16:33 Normal Saline - IV 06/21/20 16:33 PRN PRN Hypotension during Dialysis Metronidazole 500 mg in 100 mls @ 100 mls/hr 06/21/20 18:00 06/22/20 09:24 Flagyl 500mg Premixed Ivpb - IVPB 100 mls/hr Q8H-IV ERMELINDA Administration Cefepime HCl 1 gm/ Dextrose 100 mls @ 100 mls/hr 06/21/20 22:00 06/22/20 09:44 IVPB 06/22/20 21:59 100 mls/hr BID ERMELINDA Administration Protocol Sodium Chloride 1,000 mls @ 42 mls/hr 06/21/20 17:15 06/21/20 17:23 Normal Saline - IV 42 mls/hr ASDIR ERMELINDA Administration Midazolam HCl 2 mg 06/19/20 22:24 06/20/20 00:17 Versed - IVPUSH 2 mg Q2H PRN Administration AGITATION Pantoprazole Sodium 40 mg 06/21/20 10:00 06/22/20 09:22 Protonix Iv IVPUSH 40 mg DAILY ERMELINDA Administration Polyethylene Glycol 17 gm 06/19/20 22:00 06/21/20 21:52 Miralax (For Daily Use) - PO 17 gm BID ERMELINDA Administration Sevelamer Carbonate 2.4 gm 06/21/20 17:30 06/22/20 12:47 Renvela Powder Packet - PO 2.4 gm TIDCM ERMELINDA Administration Laboratory Tests 06/22/20 05:30 Creatinine 1.7 H Uric Acid 4.8 Calcium 7.4 L Phosphorus 6.4 H Impression 1. CKD 2. CML 3. AML 4. pleural effusions 5. htn 6. tumor lysis 7. charisse 8. hyperkalemia 9. acuter resp failure Plan - renal function stable - repeat labs in am - cont fluids and lasix prn - cont pressors to map 65 - repeat labs in am - phos improving - no indication for hd - monitor urine output - cont vent support - oncology follow up
[2020-06-22] MEDS: POLYETHYLENE GLYCOL 3350 119 GM BTL PO SCH ×2 (13:48→22:48)
--- NOTE | 2020-06-22 14:03 | PN ---
Progress Note (short form) - Note Progress Note: intermittent fevers making urine still on pressors, sedation increased easily arousable remains intubated, fi02 40% Vital Signs Period Temp Pulse Resp BP Sys/Carrillo Pulse Ox Last 24 Hr 98.8 F-102.1 F 68-96 24-24 85-156/47-66 95-100 cor-rrr lungs decreased bs at bases abd soft, nontender ext +edema feet +CARL CBC, BMP 06/22/20 05:30 06/22/20 05:30 Microbiology 06/20/20 11:50 Sputum - Endotrachea Suction/Ventilator Gram Stain - Final 06/20/20 11:50 Sputum - Endotrachea Suction/Ventilator Sputum Culture - Final NORMAL RESPIRATORY LYNDA 06/19/20 21:36 Blood - Peripheral Venous Blood Culture - Preliminary NO GROWTH OBTAINED AFTER 48 HOURS, INCUBATION TO CONTINUE FOR 3 DAYS. 06/20/20 15:00 Blood - Peripheral Venous Blood Culture - Preliminary NO GROWTH OBTAINED AFTER 24 HOURS, INCUBATION TO CONTINUE FOR 4 DAYS. 06/20/20 10:50 Urine - Urine - Catheterized Urine Culture - Final NO GROWTH OBTAINED 06/20/20 10:50 Urine For Antigen Detection Legionella Antigen - Final 06/20/20 10:50 Urine For Antigen Detection Streptococcus pneumoniae Antigen (M - Final 06/14/20 01:10 Blood - Peripheral Venous Blood Culture - Final NO GROWTH AFTER 5 DAYS INCUBATION 06/14/20 01:10 Blood - Peripheral Venous Blood Culture - Final NO GROWTH AFTER 5 DAYS INCUBATION 06/14/20 01:10 Urine - Urine Clean Catch Urine Culture - Final Staphylococcus Haemolyticus Group D Strep Or Entero Coccus a/p fevers- not neutropenic resp failure AML s/p chemo worsening renal failure tumorlysis syndrome anemia thrombocytopenia pen allergy continue cefepime/flagyl no need for further vancomycin follow labs Problem List - Problems (1) AML (acute myeloblastic leukemia) Code(s): C92.00 - ACUTE MYELOBLASTIC LEUKEMIA, NOT HAVING ACHIEVED REMISSION (2) Shortness of breath Code(s): R06.02 - SHORTNESS OF BREATH
--- NOTE | 2020-06-22 16:06 | PN ---
Physical Exam: SUBJECTIVE: Patient seen and examined. Still intubated, sedated. On pressors. with low grade fevers Tmax 100.4 OBJECTIVE: Vital Signs Temperature 100.2 F H 06/22/20 15:00 Pulse Rate 74 06/22/20 15:38 Respiratory Rate 24 H 06/22/20 15:00 Blood Pressure 124/56 L 06/22/20 15:38 O2 Sat by Pulse Oximetry (%) 96 06/22/20 15:00 GENERAL: The patient is intubated, sedated EYES: PERRLA, conjunctiva clear. ENT: dry mucous membranes, ET tube in place NECK: supple LUNGS: vented breath sounds b/l, decreased breath sounds bilateral bases HEART: Regular rate and rhythm, S1, S2 ABDOMEN: Soft, does not grimace on palpation, hypoactive bowel sounds, +splenomegaly EXTREMITIES: 2+ pulses, warm, well-perfused, +2 b/l pitting edema SKIN: Warm, dry, normal turgor Laboratory Results - last 24 hr 06/17/20 06/20/20 06/21/20 13:45 19:30 14:45 WBC RBC Hgb Hct MCV MCH MCHC RDW Plt Count MPV Anticoagulation Therapy Puncture Site Patient Temperature ABG pH ABG pCO2 ABG pO2 ABG HCO3 ABG O2 Sat (Measured) ABG O2 Content ABG Base Excess Rhett Test Patient On Oxygen O2 Delivery Device Oxygen Flow Rate Vent Mode Vent Rate Mechanical Rate PEEP Pressure Support Vent Sodium Potassium Chloride Carbon Dioxide Anion Gap BUN Creatinine Est GFR (CKD-EPI)AfAm Est GFR (CKD-EPI)NonAf Random Glucose Uric Acid Calcium Phosphorus Magnesium Total Bilirubin AST ALT Alkaline Phosphatase LD Total Total Protein Albumin Stool Occult Blood Negative Hep C Ab Diagnostic 0.1 Blood Type O POSITIVE Antibody Screen Negative Crossmatch See Detail 06/22/20 06/22/20 06/22/20 05:30 05:30 06:00 WBC 64.0 H* RBC 2.87 L Hgb 7.5 L Hct 23.9 L MCV 83.1 MCH 25.9 MCHC 31.2 L RDW 19.4 H Plt Count 52 L MPV 9.9 Anticoagulation Therapy No Result Required. Puncture Site Arterial line Patient Temperature 99.0 ABG pH 7.370 ABG pCO2 42.90 ABG pO2 76.5 L ABG HCO3 24.2 ABG O2 Sat (Measured) 94.9 L ABG O2 Content No Result Required. ABG Base Excess -1.0 Rhett Test Not applicable Patient On Oxygen Yes O2 Delivery Device Vent Oxygen Flow Rate 50% Vent Mode A/c Vent Rate 24 Mechanical Rate Yes PEEP 5.0 Pressure Support Vent 480 Sodium 136 Potassium 4.2 Chloride 101 Carbon Dioxide 24 Anion Gap 11 BUN 51.6 H Creatinine 1.7 H Est GFR (CKD-EPI)AfAm 46.00 Est GFR (CKD-EPI)NonAf 39.69 Random Glucose 129 H Uric Acid 4.8 Calcium 7.4 L Phosphorus 6.4 H Magnesium 2.2 Total Bilirubin 0.7 AST 63 H ALT 7 L Alkaline Phosphatase 164 H LD Total 572 H Total Protein 5.6 L Albumin 1.7 L Stool Occult Blood Hep C Ab Diagnostic Blood Type Antibody Screen Crossmatch Active Medications Generic Name Dose Route Start Last Admin Trade Name Freq PRN Reason Stop Dose Admin Acetaminophen 1,000 mg 06/22/20 11:36 Ofirmev Injection - IVPB Q8H PRN FEVER Allopurinol 300 mg 06/20/20 10:00 06/22/20 09:26 Zyloprim - PO 300 mg DAILY ERMELINDA Administration Amino Acids 30 ml 06/22/20 17:30 Prosource No Carb Liquid Pkt PO BID@0800,1730 ERMELINDA Artificial Tears 1 drop 06/20/20 10:00 06/22/20 09:29 Artificial Tears OU 1 drop DAILY ERMELINDA Administration Atorvastatin Calcium 20 mg 06/19/20 22:00 06/21/20 21:47 Lipitor - PO 20 mg HS ERMELINDA Administration Docusate Sodium 100 mg 06/22/20 08:55 Colace Liquid - PO Q8H PRN CONSTIPATION Heparin Sodium (Porcine) 5,000 unit 06/21/20 14:00 06/22/20 13:12 Heparin - SQ 5,000 unit TID ERMELINDA Administration Hydrocortisone Sodium Succinate 50 mg 06/20/20 06:30 06/22/20 14:40 Solu-Cortef - IVPUSH 50 mg Q6H-IV ERMELINDA Administration Fentanyl 500 mcg in 100 mls @ 20 mls/hr 06/19/20 23:45 06/22/20 15:37 Sublimaze Ivpb IVPB 100 mcg/hr TITR ERMELINDA 20 mls/hr Administration 100 MCG/HR Propofol 1,000,000 mcg in 100 mls @ 2.618 mls/hr 06/20/20 00:30 06/22/20 15:36 Diprivan - IVPB 45 mcg/kg/min TITR ERMELINDA 23.563 mls/hr Administration Protocol 5 MCG/KG/MIN Vasopressin 40 units/ Sodium 100 mls @ 5 mls/hr 06/20/20 06:30 06/22/20 09:28 Chloride IVPB 2 units/hr ASDIR ERMELINDA 5 mls/hr Administration Protocol 2 UNITS/HR Norepinephrine Bitartrate 16, 500 mls @ 9.375 mls/hr 06/20/20 08:00 06/22/20 15:38 000 mcg/ Sodium Chloride IV 5 mcg/min TITR ERMELINDA 9.375 mls/hr Administration Protocol 5 MCG/MIN Sodium Chloride 250 mls @ 3,000 mls/hr 06/20/20 16:33 Normal Saline - IV 06/21/20 16:33 PRN PRN Hypotension during Dialysis Metronidazole 500 mg in 100 mls @ 100 mls/hr 06/21/20 18:00 06/22/20 09:24 Flagyl 500mg Premixed Ivpb - IVPB 100 mls/hr Q8H-IV ERMELINDA Administration Cefepime HCl 2 gm/ Dextrose 100 mls @ 200 mls/hr 06/22/20 22:00 IVPB BID ERMELINDA Midazolam HCl 2 mg 06/19/20 22:24 06/20/20 00:17 Versed - IVPUSH 2 mg Q2H PRN Administration AGITATION Pantoprazole Sodium 40 mg 06/21/20 10:00 06/22/20 09:22 Protonix Iv IVPUSH 40 mg DAILY ERMELINDA Administration Polyethylene Glycol 17 gm 06/19/20 22:00 06/22/20 13:48 Miralax (For Daily Use) - PO 17 gm BID ERMELINDA Administration Sevelamer Carbonate 2.4 gm 06/21/20 17:30 06/22/20 12:47 Renvela Powder Packet - PO 2.4 gm TIDCM ERMELINDA Administration ASSESSMENT/PLAN: Patient is a 70 year old male with past medical history of HTN, HLD, CKD, 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 We have been consulted for further evaluation of CMML. 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 Splenomegaly. -WBC 198k, ANC [id number] on admission -Rasburicase 6mg x1 on admission, then Hydrea 1000mg bid started 06/14 -G6PD level not deficient -Allopurinol dose to 300mg daily -Completed 5 doses of Decitabine -CT AP 06/18 - Right > Left pleural effusion, marked splenomegaly with perisplenic fluid collection, sigmoid diverticulosis -patient started having fevers with Tmax of 104.7, with rising K and Phos 06/19 -Rasburicase 2nd dose given, Hydrea held due to ongoing tumor lysis -Intubated 06/19 for hypoxic respiratory failure, Dialysis 06/20 -Renvela for elevated phos -blood cultures negative -continue Cefepime and flagyl -monitor CBC, CMP, LDH, uric acid, coags -pulm consulted. recs appreciated. -cardio consulted. recs appreciated. -ID consulted. recs appreciated. -nephro consulted. recs appreciated. Visit type - Emergency Visit Emergency Visit: Yes ED Registration Date: 06/14/20 Care time: The patient presented to the Emergency Department on the above date and was hospitalized for further evaluation of their emergent condition. - New Patient This patient is new to me today: No - Critical Care Critical Care patient: Yes Total Critical Care Time (in minutes): 35 Critical Care Statement: The care of this patient involved high complexity decision making to prevent further life threatening deterioration of the patient's condition and/or to evaluate & treat vital organ system(s) failure or risk of failure. - Medication Review Med list reviewed for High Risk Meds patients 65 and older: Yes ATTENDING PHYSICIAN STATEMENT I saw and evaluated the patient. I reviewed the resident's note and discussed the case with the resident. I agree with the resident's findings and plan as documented. SUBJECTIVE: OBJECTIVE: ASSESSMENT AND PLAN:
--- NOTE | 2020-06-22 16:22 | PN ---
Progress Note, Physician Chief Complaint: Acute respiratory failure Tumor lysis syndrome CML History of Present Illness: Remains intubated and sedated Remains on Pressors Pt's sister Nathaly at bedside - Current Medication List Current Medications: Active Medications Acetaminophen (Ofirmev Injection -) 1,000 mg IVPB Q8H PRN PRN Reason: FEVER Allopurinol (Zyloprim -) 300 mg PO DAILY ERMELINDA Last Admin: 06/22/20 09:26 Dose: 300 mg Documented by: Amino Acids (Prosource No Carb Liquid Pkt) 30 ml PO BID@0800,1730 [facility] Artificial Tears (Artificial Tears) 1 drop OU DAILY ERMELINDA Last Admin: 06/22/20 09:29 Dose: 1 drop Documented by: Atorvastatin Calcium (Lipitor -) 20 mg PO HS ERMELINDA Last Admin: 06/21/20 21:47 Dose: 20 mg Documented by: Docusate Sodium (Colace Liquid -) 100 mg PO Q8H PRN PRN Reason: CONSTIPATION Heparin Sodium (Porcine) (Heparin -) 5,000 unit SQ TID ERMELINDA Last Admin: 06/22/20 13:12 Dose: 5,000 unit Documented by: Hydrocortisone Sodium Succinate (Solu-Cortef -) 50 mg IVPUSH Q6H-IV ERMELINDA Last Admin: 06/22/20 14:40 Dose: 50 mg Documented by: Fentanyl (Sublimaze Ivpb) 500 mcg in 100 mls @ 20 mls/hr IVPB TITR ERMELINDA Last Admin: 06/22/20 15:37 Dose: 100 mcg/hr, 20 mls/hr Documented by: Propofol (Diprivan -) 1,000,000 mcg in 100 mls @ 2.618 mls/hr IVPB TITR ERMELINDA; Protocol Last Admin: 06/22/20 15:36 Dose: 45 mcg/kg/min, 23.563 mls/hr Documented by: Vasopressin 40 units/ Sodium (Chloride) 100 mls @ 5 mls/hr IVPB ASDIR ERMELINDA; Protocol Last Admin: 06/22/20 09:28 Dose: 2 units/hr, 5 mls/hr Documented by: Norepinephrine Bitartrate 16, (000 mcg/ Sodium Chloride) 500 mls @ 9.375 mls/hr IV TITR ERMELINDA; Protocol Last Admin: 06/22/20 15:38 Dose: 5 mcg/min, 9.375 mls/hr Documented by: Sodium Chloride (Normal Saline -) 250 mls @ 3,000 mls/hr IV PRN PRN PRN Reason: Hypotension during Dialysis Stop: 06/21/20 16:33 Metronidazole (Flagyl 500mg Premixed Ivpb -) 500 mg in 100 mls @ 100 mls/hr IVPB Q8H-IV [facility] Last Admin: 06/22/20 09:24 Dose: 100 mls/hr Documented by: Cefepime HCl 2 gm/ Dextrose 100 mls @ 200 mls/hr IVPB BID [facility] Midazolam HCl (Versed -) 2 mg IVPUSH Q2H PRN PRN Reason: AGITATION Last Admin: 06/20/20 00:17 Dose: 2 mg Documented by: Pantoprazole Sodium (Protonix Iv) 40 mg IVPUSH DAILY [facility] Last Admin: 06/22/20 09:22 Dose: 40 mg Documented by: Polyethylene Glycol (Miralax (For Daily Use) -) 17 gm PO BID [facility] Last Admin: 06/22/20 13:48 Dose: 17 gm Documented by: Sevelamer Carbonate (Renvela Powder Packet -) 2.4 gm PO TIDCM [facility] Last Admin: 06/22/20 12:47 Dose: 2.4 gm Documented by: - Objective Vital Signs: Vital Signs Temperature 100.2 F H 06/22/20 15:00 Pulse Rate 74 06/22/20 15:38 Respiratory Rate 24 H 06/22/20 15:00 Blood Pressure 124/56 L 06/22/20 15:38 O2 Sat by Pulse Oximetry (%) 96 06/22/20 15:00 Constitutional: Yes: Well Nourished, No Distress, Calm Cardiovascular: Yes: Regular Rate and Rhythm Respiratory: Yes: Mechanically Ventilated, Rhonchi (diffuse) Gastrointestinal: Yes: Soft, Hypoactive Bowel Sounds Genitourinary: Yes: García Present Edema: Yes Edema: LLE: 2+, RLE: 2+ Peripheral Pulses WNL: Yes Neurological: Yes: Other (sedated) Labs: CBC, BMP 06/22/20 05:30 06/22/20 05:30 INR, PTT INR 1.31 (0.83-1.09) H 06/14/20 19:20 Fibrinogen > 500.0 mg/dL (238-498) H 06/14/20 19:20 Problem List - Problems (1) Acute respiratory failure Assessment/Plan: -Mech vent -Pulmonary on board -IV solucortef -Chest CTA 06/13: no evidence of PE, bilateral pleural efuusions, R>L, extensive LAD involving the mediastinal, bilateral hilar, bilateral axillary and upper abdominal LN chains. Splenomegaly. -Enteral feeds Problems reviewed: Yes Code(s): J96.00 - ACUTE RESPIRATORY FAILURE, UNSP W HYPOXIA OR HYPERCAPNIA (2) Tumor lysis syndrome Assessment/Plan: -Hematology on board -Rasburicase -On solucortef -G6PD level not deficient -Allopurinol dose to 300mg daily -Completed 5 doses of Decitabine Problems reviewed: Yes Code(s): E88.3 - TUMOR LYSIS SYNDROME (3) CHF (congestive heart failure) Assessment/Plan: -HD as per nephrology -Cardiology consult Problems reviewed: Yes Code(s): I50.9 - HEART FAILURE, UNSPECIFIED (4) AML (acute myeloblastic leukemia) Assessment/Plan: -Hematology consult -Monitor labs Problems reviewed: Yes Code(s): C92.00 - ACUTE MYELOBLASTIC LEUKEMIA, NOT HAVING ACHIEVED REMISSION (5) Acute renal failure Assessment/Plan: -Nephrology on board -HD as recommended by nephrology -Follow labs -On Renvela Problems reviewed: Yes Code(s): N17.9 - ACUTE KIDNEY FAILURE, UNSPECIFIED (6) Fever Assessment/Plan: -Cultures: Microbiology 06/19/20 21:36 Blood - Peripheral Venous Blood Culture - Preliminary NO GROWTH OBTAINED AFTER 72 HOURS, INCUBATION TO CONTINUE FOR 2 DAYS. 06/20/20 15:00 Blood - Peripheral Venous Blood Culture - Preliminary NO GROWTH OBTAINED AFTER 48 HOURS, INCUBATION TO CONTINUE FOR 3 DAYS. 06/20/20 11:50 Sputum - Endotrachea Suction/Ventilator Gram Stain - Final 06/20/20 11:50 Sputum - Endotrachea Suction/Ventilator Sputum Culture - Final NORMAL RESPIRATORY LYNDA 06/20/20 10:50 Urine - Urine - Catheterized Urine Culture - Final NO GROWTH OBTAINED 06/20/20 10:50 Urine For Antigen Detection Legionella Antigen - Final 06/20/20 10:50 Urine For Antigen Detection Streptococcus pneumoniae Antigen (M - Final 06/14/20 01:10 Blood - Peripheral Venous Blood Culture - Final NO GROWTH AFTER 5 DAYS INCUBATION 06/14/20 01:10 Blood - Peripheral Venous Blood Culture - Final NO GROWTH AFTER 5 DAYS INCUBATION 06/14/20 01:10 Urine - Urine Clean Catch Urine Culture - Final Staphylococcus Haemolyticus Group D Strep Or Entero Coccus -ID on board -IV Cefepime + Flagyl -Cooling blanket for fever>102.0F Problems reviewed: Yes Code(s): R50.9 - FEVER, UNSPECIFIED Assessment/Plan See problem list Palliative care on board prognosis guarded
[2020-06-22] MEDS: ACETAMINOPHEN 1000 MG/100 ML VIAL (NON FORMULARY) IVPB PRN (17:00)
[2020-06-22] MEDS: AMINO ACIDS/PROTEIN HYDROLYS 30 ML LIQUID.PKT PO SCH (17:38)
[2020-06-22 19:06] LABS: HEP B CORE AB, TOT Negative (Negative)
--- NOTE | 2020-06-22 19:57 | PN ---
Teaching Attending Note Name of Resident: Alee Nelson ATTENDING PHYSICIAN STATEMENT I saw and evaluated the patient. I reviewed the resident's note and discussed the case with the resident. I agree with the resident's findings and plan as documented. SUBJECTIVE: Pt seen and examined at bedside in MICU. Intubated and sedated. OBJECTIVE: 06/22/20 05:30 06/22/20 05:30 ASSESSMENT AND PLAN: 70 year old gentleman with past medical history of HTN, HLD, CKD, CMML now progressed to AML, presented to the ED due to progressive shortness of breath, bilateral LE swelling and generalized weakness for about 4 days. We have been consulted for further evaluation of AML. 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 C1D8. Treated also with hydrea given hyperleukocytosis, held due to severe TLS. White blood cells are decreasing now significantly. 2) TLS. Rasburicase X2. s/p HD. 3) Previously on HD. Renal function stable. Joe Nehrology help. No need for HD today. 4) Fevers. Cefepime and Flagyl. Joe ID help. Blood cultures negative. 5) Daily CBC, CMP, LDH, Uric Acid. Monitor Coagulation as needed (every 1-2 days)
[2020-06-22] MEDS ORDERED: CEFEPIME HCL/D5W 2 GM/50 ML BAG IVPB SCH (22:00)
[2020-06-22] MEDS: CEFEPIME 2 GM in DEXTROSE 5%-WATER 100 ML IVPB SCH (22:47)
[2020-06-22] MEDS: ATORVASTATIN CA 20 MG TABLET (FP) PO SCH (22:47)
[2020-06-23] MEDS: PROPOFOL 1,000,000 MCG/100 ML VIAL IVPB SCH ×4 (02:18→17:54)
[2020-06-23] MEDS: HYDROCORTISONE SOD SUCCINATE 100 MG/2 ML VIAL IVPUSH SCH ×4 (02:20→22:02)
[2020-06-23] MEDS: FENTANYL IVPB 500 MCG/100 ML BAG IVPB SCH ×4 (02:21→15:10)
[2020-06-23] MEDS: ACETAMINOPHEN 1000 MG/100 ML VIAL (NON FORMULARY) IVPB PRN ×2 (04:00→14:01)
[2020-06-23] MEDS: HEPARIN NA (PORCINE) 5,000 UNITS/ML 1ML VIAL SQ SCH ×3 (05:53→22:02)
[2020-06-23 06:24] LABS: ARTERIAL BLD GAS O2 SATURATION 94.3 mmHg (95-98); ARTERIAL BLOOD GAS BASE EXCESS -0.9 mmol/L (-2-2); ARTERIAL BLOOD GAS PO2 69.6 mmHg (80-100); ARTERIAL BLOOD GAS pH 7.414 (7.350-7.450)
[2020-06-23 06:31] LABS: ALLENS TEST POSITIVE
[2020-06-23 06:32] LABS: VENT MODE A/C; VENT RATE 24
[2020-06-23 07:11] LABS: INR 1.32 (0.83-1.09); PROTHROMBIN TIME (PATIENT) 15.6 SEC (9.7-13.0)
[2020-06-23] MEDS: VASOPRESSIN 40 UNITS in SODIUM CHLORIDE 98 ML IVPB SCH (07:12)
[2020-06-23 07:13] LABS: ACTIVATED PTT 28.6 SECONDS (25.2-36.5)
[2020-06-23 07:14] LABS: BASO % 0.3 % (0-2.0); HEMATOCRIT 22.7 % (35.4-49); HEMOGLOBIN 7.3 GM/dL (11.7-16.9); LYMPH % 6.3 % (8-40); MCH 26.8 pg (25.7-33.7); MCHC 32.1 g/dl (32.0-35.9); MEAN CELL VOLUME 83.6 fl (80-96); MEAN PLT VOLUME 10.1 fl (7.5-11.1); MONO % 2.7 % (3.8-10.2); NEUT % 90.7 % (42.8-82.8); PLATELET COUNT 44 K/MM3 (134-434); RBC 2.71 M/mm3 (4.00-5.60); RDW 20.3 % (11.9-15.9)
--- NOTE | 2020-06-23 07:25 | PN ---
Progress Note, Physician Chief Complaint: SEDATION IS TAPERING OFF BY NURSE NO ACUTE EVENTS OVERNIGHT STILL INTUBATED ON VENT SUPPORT - Current Medication List Current Medications: Active Medications Acetaminophen (Ofirmev Injection -) 1,000 mg IVPB Q8H PRN PRN Reason: FEVER Stop: 06/23/20 11:35 Last Admin: 06/23/20 04:00 Dose: 1,000 mg Documented by: Allopurinol (Zyloprim -) 300 mg PO DAILY [facility] Last Admin: 06/22/20 09:26 Dose: 300 mg Documented by: Amino Acids (Prosource No Carb Liquid Pkt) 30 ml PO BID@0800,1730 [facility] Last Admin: 06/22/20 17:38 Dose: 30 ml Documented by: Artificial Tears (Artificial Tears) 1 drop OU DAILY [facility] Last Admin: 06/22/20 09:29 Dose: 1 drop Documented by: Atorvastatin Calcium (Lipitor -) 20 mg PO HS [facility] Last Admin: 06/22/20 22:47 Dose: 20 mg Documented by: Docusate Sodium (Colace Liquid -) 100 mg PO Q8H PRN PRN Reason: CONSTIPATION Heparin Sodium (Porcine) (Heparin -) 5,000 unit SQ TID [facility] Last Admin: 06/23/20 05:53 Dose: 5,000 unit Documented by: Hydrocortisone Sodium Succinate (Solu-Cortef -) 50 mg IVPUSH Q6H-IV [facility] Last Admin: 06/23/20 02:20 Dose: 50 mg Documented by: Fentanyl (Sublimaze Ivpb) 500 mcg in 100 mls @ 20 mls/hr IVPB TITR [facility] Last Admin: 06/23/20 07:13 Dose: Not Given Documented by: Propofol (Diprivan -) 1,000,000 mcg in 100 mls @ 2.618 mls/hr IVPB TITR [facility]; Protocol Last Admin: 06/23/20 04:57 Dose: 45 mcg/kg/min, 23.563 mls/hr Documented by: Vasopressin 40 units/ Sodium (Chloride) 100 mls @ 5 mls/hr IVPB ASDIR [facility]; Protocol Last Titration: 06/23/20 07:15 Dose: 0 units/hr, 0 mls/hr Documented by: Norepinephrine Bitartrate 16, (000 mcg/ Sodium Chloride) 500 mls @ 9.375 mls/hr IV TITR [facility]; Protocol Last Titration: 06/23/20 07:16 Dose: 7 mcg/min, 13.125 mls/hr Documented by: Sodium Chloride (Normal Saline -) 250 mls @ 3,000 mls/hr IV PRN PRN PRN Reason: Hypotension during Dialysis Stop: 06/21/20 16:33 Metronidazole (Flagyl 500mg Premixed Ivpb -) 500 mg in 100 mls @ 100 mls/hr IVPB Q8H-IV [facility] Last Admin: 06/23/20 02:14 Dose: 100 mls/hr Documented by: Cefepime HCl 2 gm/ Dextrose 100 mls @ 200 mls/hr IVPB BID [facility] Last Admin: 06/22/20 22:47 Dose: 200 mls/hr Documented by: Pantoprazole Sodium (Protonix Iv) 40 mg IVPUSH DAILY [facility] Last Admin: 06/22/20 09:22 Dose: 40 mg Documented by: Polyethylene Glycol (Miralax (For Daily Use) -) 17 gm PO BID [facility] Last Admin: 06/22/20 22:48 Dose: 17 gm Documented by: Sevelamer Carbonate (Renvela Powder Packet -) 2.4 gm PO TIDCM [facility] Last Admin: 06/22/20 17:39 Dose: 2.4 gm Documented by: - Objective Vital Signs: Vital Signs Temperature 102.8 F H 06/23/20 05:40 Pulse Rate 86 06/23/20 07:16 Respiratory Rate 22 H 06/23/20 05:40 Blood Pressure 120/50 L 06/23/20 07:16 O2 Sat by Pulse Oximetry (%) 100 06/23/20 05:40 Constitutional: Yes: Moderate Distress Cardiovascular: Yes: Tachycardia, Pulse Irregular Respiratory: Yes: Diminished, Mechanically Ventilated Genitourinary: Yes: García Present Musculoskeletal: Yes: Muscle Weakness Edema: Yes Edema: LLE: 2+, RLE: 2+ Integumentary: Yes: Erythema, Venous Stasis Changes Wound/Incision: Yes: Other Neurological: Yes: Other Labs: INR, PTT INR 1.32 (0.83-1.09) H 06/23/20 06:00 Fibrinogen > 500.0 mg/dL (238-498) H 06/14/20 19:20 Problem List - Problems (1) AML (acute myeloblastic leukemia) Code(s): C92.00 - ACUTE MYELOBLASTIC LEUKEMIA, NOT HAVING ACHIEVED REMISSION (2) CHF (congestive heart failure) Code(s): I50.9 - HEART FAILURE, UNSPECIFIED (3) Palpitations Code(s): R00.2 - PALPITATIONS (4) Shortness of breath Code(s): R06.02 - SHORTNESS OF BREATH (5) Acute renal failure Code(s): N17.9 - ACUTE KIDNEY FAILURE, UNSPECIFIED (6) Abdominal distention Code(s): R14.0 - ABDOMINAL DISTENSION (GASEOUS) (7) CML (chronic myelocytic leukemia) Code(s): C92.10 - CHRONIC MYELOID LEUK, BCR/ABL-POSITIVE, NOT ACHIEVE REMIS Assessment/Plan ON VENT SUPPORT D/W ICU TEAM WEANING PROTOCOL TOLERATED REDUCING SEDATION TO OFF THEN WEANING TODAY ON 60% FIO2 HD PER NEPHROLOGY ON ABX TRANSFUSE PRBC PER ONCOLOGY DVT 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
[2020-06-23 07:27] LABS: WHITE BLOOD COUNT 52.1 K/mm3 (4.0-10.0)
[2020-06-23 07:39] LABS: ALBUMIN 1.7 g/dl (3.4-5.0); BILIRUBIN,TOTAL 0.7 mg/dL (0.2-1); BLOOD UREA NITROGEN 52.8 mg/dL (7-18); CALCIUM 7.3 mg/dL (8.5-10.1); CREATININE 1.5 mg/dL (0.55-1.3); MAGNESIUM 2.1 mg/dL (1.8-2.4); PHOSPHOROUS 3.6 mg/dL (2.5-4.9); POTASSIUM 3.5 mmol/L (3.5-5.1); TOT PROT 5.7 g/dl (6.4-8.2); URIC ACID 5.7 mg/dL (2.6-7.2)
[2020-06-23] MEDS: NOREPINEPHRINE BITARTRATE 16,000 MCG in SODIUM CHLORIDE 484 ML IV SCH (08:42)
[2020-06-23] MEDS: AMINO ACIDS/PROTEIN HYDROLYS 30 ML LIQUID.PKT PO SCH ×2 (08:50→18:23)
[2020-06-23] MEDS: SEVELAMER CARBONATE 2.4 GM POWDER PACKET PO SCH ×3 (08:51→18:23)
[2020-06-23] MEDS ORDERED: PT OWN MED DRAWER 7, Y5N ONE ×2 (09:05→22:05)
[2020-06-23] MEDS: CEFEPIME 2 GM in DEXTROSE 5%-WATER 100 ML IVPB SCH ×2 (09:09→22:31)
[2020-06-23] MEDS: POLYETHYLENE GLYCOL 3350 119 GM BTL PO SCH ×2 (09:09→22:02)
[2020-06-23] MEDS: PANTOPRAZOLE SODIUM 40 MG VIAL IVPUSH SCH (09:09)
[2020-06-23] MEDS: ALLOPURINOL 300 MG TABLET (FP) PO SCH (09:09)
[2020-06-23] MEDS: ARTIFICIAL TEARS (POLYVINYL ALCOHOL) OPTH DROPS OU SCH (09:09)
[2020-06-23 10:14] LABS: ANISOCYTOSIS 1+; MACROCYTOSIS 0; PLATELET ESTIMATE DECREASED
--- NOTE | 2020-06-23 12:27 | PN ---
Progress Note (short form) - Note Progress Note: pressors being tapered off continued fevers making urine Vital Signs Period Temp Pulse Resp BP Sys/Carrillo Pulse Ox Last 24 Hr 101.2 F-103.5 F 76-108 21-29 115-144/50-66 95-100 cor-rrr lungs decreased bs at bases abd soft,nt ext trace edema waters CBC, BMP 06/23/20 06:00 06/23/20 06:00 Microbiology 06/20/20 15:00 Blood - Peripheral Venous Blood Culture - Preliminary NO GROWTH OBTAINED AFTER 72 HOURS, INCUBATION TO CONTINUE FOR 2 DAYS. 06/19/20 21:36 Blood - Peripheral Venous Blood Culture - Preliminary NO GROWTH OBTAINED AFTER 72 HOURS, INCUBATION TO CONTINUE FOR 2 DAYS. 06/20/20 11:50 Sputum - Endotrachea Suction/Ventilator Gram Stain - Final 06/20/20 11:50 Sputum - Endotrachea Suction/Ventilator Sputum Culture - Final NORMAL RESPIRATORY LYNDA 06/20/20 10:50 Urine - Urine - Catheterized Urine Culture - Final NO GROWTH OBTAINED 06/20/20 10:50 Urine For Antigen Detection Legionella Antigen - Final 06/20/20 10:50 Urine For Antigen Detection Streptococcus pneumoniae Antigen (M - Final 06/14/20 01:10 Blood - Peripheral Venous Blood Culture - Final NO GROWTH AFTER 5 DAYS INCUBATION 06/14/20 01:10 Blood - Peripheral Venous Blood Culture - Final NO GROWTH AFTER 5 DAYS INCUBATION 06/14/20 01:10 Urine - Urine Clean Catch Urine Culture - Final Staphylococcus Haemolyticus Group D Strep Or Entero Coccus a/p fevers- not neutropenic-hemodynamics improving resp failure AML s/p chemo reanl function improving tumorlysis syndrome anemia thrombocytopenia pen allergy continue cefepime/flagyl reculture cxray add vancomycin Problem List - Problems (1) AML (acute myeloblastic leukemia) Code(s): C92.00 - ACUTE MYELOBLASTIC LEUKEMIA, NOT HAVING ACHIEVED REMISSION (2) Shortness of breath Code(s): R06.02 - SHORTNESS OF BREATH
--- NOTE | 2020-06-23 13:08 | PN ---
Teaching Attending Note Name of Resident: Rudy Sanabria ATTENDING PHYSICIAN STATEMENT I saw and evaluated the patient. I reviewed the resident's note and discussed the case with the resident. I agree with the resident's findings and plan as documented. SUBJECTIVE: Pt seen and examined in the ICU. Remains intubated, sedated on low dose levophed gtt. Remains febrile, cultures negative. Vented on volume assist control with 40% FiO2. OBJECTIVE: Vital Signs Period Temp Pulse Resp BP Sys/Carrillo Pulse Ox Last 24 Hr 99.9 F-103.5 F 70-108 21-29 119-144/50-73 96-100 Intake & Output 06/20/20 06/21/20 06/22/20 06/23/20 23:59 23:59 23:59 23:59 Intake Total 5034 2232.5 2936.8 1243.8 Output Total 8585 1280 2650 1100 Balance -3551 952.5 286.8 143.8 Weight 87.2 kg 87.044 kg 81.9 kg 82.2 kg Gen: intubated, sedated Heart: RRR Lung: scattered rhonchi Abd: soft, nontender Ext: + edema CBC, BMP 06/23/20 06:00 06/23/20 06:00 Active Medications Albumin Human (Albumin Human 25% -) 25 gm IVPB BID [facility] Stop: 06/25/20 10:01 Allopurinol (Zyloprim -) 300 mg PO DAILY [facility] Last Admin: 06/23/20 09:09 Dose: 300 mg Documented by: Amino Acids (Prosource No Carb Liquid Pkt) 30 ml PO BID@0800,1730 [facility] Last Admin: 06/23/20 08:50 Dose: 30 ml Documented by: Artificial Tears (Artificial Tears) 1 drop OU DAILY [facility] Last Admin: 06/23/20 09:09 Dose: 1 drop Documented by: Atorvastatin Calcium (Lipitor -) 20 mg PO HS [facility] Last Admin: 06/22/20 22:47 Dose: 20 mg Documented by: Docusate Sodium (Colace Liquid -) 100 mg PO Q8H PRN PRN Reason: CONSTIPATION Furosemide (Lasix Injection -) 40 mg IVPUSH BID@0600,1400 [facility] Heparin Sodium (Porcine) (Heparin -) 5,000 unit SQ TID [facility] Last Admin: 06/23/20 05:53 Dose: 5,000 unit Documented by: Hydrocortisone Sodium Succinate (Solu-Cortef -) 50 mg IVPUSH Q6H-IV [facility] Last Admin: 06/23/20 08:50 Dose: 50 mg Documented by: Fentanyl (Sublimaze Ivpb) 500 mcg in 100 mls @ 20 mls/hr IVPB TITR [facility] Last Titration: 06/23/20 10:18 Dose: 100 mcg/hr, 20 mls/hr Documented by: Propofol (Diprivan -) 1,000,000 mcg in 100 mls @ 2.618 mls/hr IVPB TITR [facility]; Protocol Last Titration: 06/23/20 10:18 Dose: 50 mcg/kg/min, 26.181 mls/hr Documented by: Vasopressin 40 units/ Sodium (Chloride) 100 mls @ 5 mls/hr IVPB ASDIR [facility]; Protocol Last Titration: 06/23/20 07:15 Dose: 0 units/hr, 0 mls/hr Documented by: Norepinephrine Bitartrate 16, (000 mcg/ Sodium Chloride) 500 mls @ 9.375 mls/hr IV TITR [facility]; Protocol Last Admin: 06/23/20 08:42 Dose: Not Given Documented by: Sodium Chloride (Normal Saline -) 250 mls @ 3,000 mls/hr IV PRN PRN PRN Reason: Hypotension during Dialysis Stop: 06/21/20 16:33 Metronidazole (Flagyl 500mg Premixed Ivpb -) 500 mg in 100 mls @ 100 mls/hr IVPB Q8H-IV [facility] Last Admin: 06/23/20 09:57 Dose: 100 mls/hr Documented by: Cefepime HCl 2 gm/ Dextrose 100 mls @ 200 mls/hr IVPB BID [facility] Last Admin: 06/23/20 09:09 Dose: 200 mls/hr Documented by: Vancomycin HCl (Vancomycin (Pre-Docked)) 1,000 mg in 250 mls @ 200 mls/hr IVPB Q24H [facility]; Protocol Pantoprazole Sodium (Protonix Iv) 40 mg IVPUSH DAILY [facility] Last Admin: 06/23/20 09:09 Dose: 40 mg Documented by: Polyethylene Glycol (Miralax (For Daily Use) -) 17 gm PO BID [facility] Last Admin: 06/23/20 09:09 Dose: 17 gm Documented by: Sevelamer Carbonate (Renvela Powder Packet -) 2.4 gm PO TIDCM [facility] Last Admin: 06/23/20 12:15 Dose: 2.4 gm Documented by: ASSESSMENT AND PLAN: Acute Hypoxic Respiratory Failure AML Tumor Lysis Syndrome Shock - ?Septic Acute Kidney Injury Hyperkalemia improved Anemia/Thrombocytopenia HTN Hyperlipidemia - continue antibiotics - f/u cultures - monitor urine output, creatinine - monitor LDH, uric acid - titrate pressors to maintain MAP >65 - on stress dose steroids - titrate FiO2 to keep SpO2 >90% - continue volume assist control - daily sedation vacations to assess mental status - enteral feeds - DVT/GI prophylaxis - continue ICU monitoring critical care time spent in reviewing chart, evaluating patient and formulating plan 35 min
--- NOTE | 2020-06-23 13:35 | PN ---
Progress Note, Physician History of Present Illness: Pt seen and examined at bedside. He remains in the ICU. He remains intubated. He is making urine. - Current Medication List Current Medications: Active Medications Albumin Human (Albumin Human 25% -) 25 gm IVPB BID [facility] Stop: 06/25/20 10:01 Allopurinol (Zyloprim -) 300 mg PO DAILY [facility] Last Admin: 06/23/20 09:09 Dose: 300 mg Documented by: Amino Acids (Prosource No Carb Liquid Pkt) 30 ml PO BID@0800,1730 [facility] Last Admin: 06/23/20 08:50 Dose: 30 ml Documented by: Artificial Tears (Artificial Tears) 1 drop OU DAILY [facility] Last Admin: 06/23/20 09:09 Dose: 1 drop Documented by: Atorvastatin Calcium (Lipitor -) 20 mg PO HS [facility] Last Admin: 06/22/20 22:47 Dose: 20 mg Documented by: Docusate Sodium (Colace Liquid -) 100 mg PO Q8H PRN PRN Reason: CONSTIPATION Furosemide (Lasix Injection -) 40 mg IVPUSH BID@0600,1400 [facility] Heparin Sodium (Porcine) (Heparin -) 5,000 unit SQ TID [facility] Last Admin: 06/23/20 05:53 Dose: 5,000 unit Documented by: Hydrocortisone Sodium Succinate (Solu-Cortef -) 50 mg IVPUSH Q6H-IV [facility] Last Admin: 06/23/20 08:50 Dose: 50 mg Documented by: Fentanyl (Sublimaze Ivpb) 500 mcg in 100 mls @ 20 mls/hr IVPB TITR [facility] Last Titration: 06/23/20 10:18 Dose: 100 mcg/hr, 20 mls/hr Documented by: Propofol (Diprivan -) 1,000,000 mcg in 100 mls @ 2.618 mls/hr IVPB TITR [facility]; Protocol Last Titration: 06/23/20 10:18 Dose: 50 mcg/kg/min, 26.181 mls/hr Documented by: Vasopressin 40 units/ Sodium (Chloride) 100 mls @ 5 mls/hr IVPB ASDIR [facility]; Protocol Last Titration: 06/23/20 07:15 Dose: 0 units/hr, 0 mls/hr Documented by: Norepinephrine Bitartrate 16, (000 mcg/ Sodium Chloride) 500 mls @ 9.375 mls/hr IV TITR [facility]; Protocol Last Admin: 06/23/20 08:42 Dose: Not Given Documented by: Sodium Chloride (Normal Saline -) 250 mls @ 3,000 mls/hr IV PRN PRN PRN Reason: Hypotension during Dialysis Stop: 06/21/20 16:33 Metronidazole (Flagyl 500mg Premixed Ivpb -) 500 mg in 100 mls @ 100 mls/hr IVPB Q8H-IV [facility] Last Admin: 06/23/20 09:57 Dose: 100 mls/hr Documented by: Cefepime HCl 2 gm/ Dextrose 100 mls @ 200 mls/hr IVPB BID [facility] Last Admin: 06/23/20 09:09 Dose: 200 mls/hr Documented by: Vancomycin HCl (Vancomycin (Pre-Docked)) 1,000 mg in 250 mls @ 200 mls/hr IVPB Q24H [facility]; Protocol Pantoprazole Sodium (Protonix Iv) 40 mg IVPUSH DAILY [facility] Last Admin: 06/23/20 09:09 Dose: 40 mg Documented by: Polyethylene Glycol (Miralax (For Daily Use) -) 17 gm PO BID [facility] Last Admin: 06/23/20 09:09 Dose: 17 gm Documented by: Sevelamer Carbonate (Renvela Powder Packet -) 2.4 gm PO TIDCM [facility] Last Admin: 06/23/20 12:15 Dose: 2.4 gm Documented by: - Objective Vital Signs: Vital Signs Temperature 102.1 F H 06/23/20 12:00 Pulse Rate 104 H 06/23/20 12:00 Respiratory Rate 24 H 06/23/20 12:00 Blood Pressure 124/55 L 06/23/20 12:00 O2 Sat by Pulse Oximetry (%) 97 06/23/20 12:00 Constitutional: Yes: Calm Eyes: Yes: Conjunctiva Clear HENT: Yes: Atraumatic Neck: Yes: Supple Cardiovascular: Yes: S1, S2 Respiratory: Yes: Mechanically Ventilated Gastrointestinal: Yes: Normal Bowel Sounds, Soft Genitourinary: Yes: García Present Edema: Yes Edema: LUE: Trace, RUE: Trace, LLE: 1+, RLE: 1+ Neurological: Yes: Lethargy Labs: CBC, BMP 06/23/20 06:00 06/23/20 06:00 INR, PTT INR 1.32 (0.83-1.09) H 06/23/20 06:00 Fibrinogen > 500.0 mg/dL (238-498) H 06/14/20 19:20 Assessment/Plan Current Medications Generic Name Dose Route Start Last Admin Trade Name Freq PRN Reason Stop Dose Admin Acetaminophen 1,000 mg 06/22/20 11:36 Ofirmev Injection - IVPB Q8H PRN FEVER Allopurinol 300 mg 06/20/20 10:00 06/22/20 09:26 Zyloprim - PO 300 mg DAILY ERM[facility]INDA Administration Amino Acids 30 ml 06/22/20 17:30 Prosource No Carb Liquid Pkt PO BID@0800,1730 [facility] Artificial Tears 1 drop 06/20/20 10:00 06/22/20 09:29 Artificial Tears OU 1 drop DAILY [facility] Administration Atorvastatin Calcium 20 mg 06/19/20 22:00 06/21/20 21:47 Lipitor - PO 20 mg HS ER[facility]INDA Administration Docusate Sodium 100 mg 06/22/20 08:55 Colace Liquid - PO Q8H PRN CONSTIPATION Heparin Sodium (Porcine) 5,000 unit 06/21/20 14:00 06/22/20 13:12 Heparin - SQ 5,000 unit TID ERM[facility]INDA Administration Hydrocortisone Sodium Succinate 50 mg 06/20/20 06:30 06/22/20 08:33 Solu-Cortef - IVPUSH 50 mg Q6H-IV [facility]DA Administration Fentanyl 500 mcg in 100 mls @ 20 mls/hr 06/19/20 23:45 06/22/20 07:40 Sublimaze Ivpb IVPB 100 mcg/hr TITR ER[facility]INDA 20 mls/hr Titration 100 MCG/HR Propofol 1,000,000 mcg in 100 mls @ 2.618 mls/hr 06/20/20 00:30 06/22/20 09:26 Diprivan - IVPB 45 mcg/kg/min TITR [facility] 23.563 mls/hr Administration Protocol 5 MCG/KG/MIN Vasopressin 40 units/ Sodium 100 mls @ 5 mls/hr 06/20/20 06:30 06/22/20 09:28 Chloride IVPB 2 units/hr ASDIR ERMELINDA 5 mls/hr Administration Protocol 2 UNITS/HR Norepinephrine Bitartrate 16, 500 mls @ 9.375 mls/hr 06/20/20 08:00 06/22/20 08:20 000 mcg/ Sodium Chloride IV 5 mcg/min TITR [facility] 9.375 mls/hr Titration Protocol 5 MCG/MIN Sodium Chloride 250 mls @ 3,000 mls/hr 06/20/20 16:33 Normal Saline - IV 06/21/20 16:33 PRN PRN Hypotension during Dialysis Metronidazole 500 mg in 100 mls @ 100 mls/hr 06/21/20 18:00 06/22/20 09:24 Flagyl 500mg Premixed Ivpb - IVPB 100 mls/hr Q8H-IV [facility] Administration Cefepime HCl 1 gm/ Dextrose 100 mls @ 100 mls/hr 06/21/20 22:00 06/22/20 09:44 IVPB 06/22/20 21:59 100 mls/hr BID [facility] Administration Protocol Sodium Chloride 1,000 mls @ 42 mls/hr 06/21/20 17:15 06/21/20 17:23 Normal Saline - IV 42 mls/hr ASDIR ERMELINDA Administration Midazolam HCl 2 mg 06/19/20 22:24 06/20/20 00:17 Versed - IVPUSH 2 mg Q2H PRN Administration AGITATION Pantoprazole Sodium 40 mg 06/21/20 10:00 06/22/20 09:22 Protonix Iv IVPUSH 40 mg DAILY [facility] Administration Polyethylene Glycol 17 gm 06/19/20 22:00 06/21/20 21:52 Miralax (For Daily Use) - PO 17 gm BID [facility] Administration Sevelamer Carbonate 2.4 gm 06/21/20 17:30 06/22/20 12:47 Renvela Powder Packet - PO 2.4 gm TIDCM [facility] Administration Impression 1. CKD 2. CML 3. AML 4. pleural effusions 5. htn 6. tumor lysis 7. charisse 8. hyperkalemia 9. acuter resp failure Plan - renal function stable - d/c shiley cath - cont fluids - lasix prn - cont vent support - monitor urine output - repeat labs in am - cont pressors to map 65 - oncology follow up
[2020-06-23] MEDS: VANCOMYCIN 1 GRAM (PRE-DOCKED) 1,000 MG/250 ML BAG IVPB SCH (13:45)
[2020-06-23] MEDS ORDERED: ALBUMIN HUMAN 25% 100 ML VIAL IVPB SCH ×2 (13:45→14:14)
[2020-06-23] MEDS ORDERED: MIDAZOLAM HCL 2 MG/2 ML SINGLE DOSE VIAL IVPUSH ONE (14:27)
--- NOTE | 2020-06-23 14:52 | PN ---
Progress Note, Physician History of Present Illness: events noted Chart reviewed Patient seen in the medical ICU Continuehismovement Remainedsedatedintubated - Current Medication List Current Medications: Active Medications Acetaminophen (Ofirmev Injection -) 1,000 mg IVPB Q8H PRN PRN Reason: FEVER Stop: 06/24/20 13:48 Last Admin: 06/23/20 14:01 Dose: 1,000 mg Documented by: Albumin Human (Albumin Human 25% -) 25 gm IVPB BID [facility] Stop: 06/24/20 22:01 Allopurinol (Zyloprim -) 300 mg PO DAILY [facility] Last Admin: 06/23/20 09:09 Dose: 300 mg Documented by: Amino Acids (Prosource No Carb Liquid Pkt) 30 ml PO BID@0800,1730 [facility] Last Admin: 06/23/20 08:50 Dose: 30 ml Documented by: Artificial Tears (Artificial Tears) 1 drop OU DAILY [facility] Last Admin: 06/23/20 09:09 Dose: 1 drop Documented by: Atorvastatin Calcium (Lipitor -) 20 mg PO HS [facility] Last Admin: 06/22/20 22:47 Dose: 20 mg Documented by: Docusate Sodium (Colace Liquid -) 100 mg PO Q8H PRN PRN Reason: CONSTIPATION Furosemide (Lasix Injection -) 40 mg IVPUSH BID@0600,1400 [facility] Heparin Sodium (Porcine) (Heparin -) 5,000 unit SQ TID [facility] Last Admin: 06/23/20 13:49 Dose: 5,000 unit Documented by: Hydrocortisone Sodium Succinate (Solu-Cortef -) 50 mg IVPUSH Q6H-IV [facility] Last Admin: 06/23/20 08:50 Dose: 50 mg Documented by: Fentanyl (Sublimaze Ivpb) 500 mcg in 100 mls @ 20 mls/hr IVPB TITR [facility] Last Titration: 06/23/20 10:18 Dose: 100 mcg/hr, 20 mls/hr Documented by: Propofol (Diprivan -) 1,000,000 mcg in 100 mls @ 2.618 mls/hr IVPB TITR [facility]; Protocol Last Admin: 06/23/20 13:49 Dose: 50 mcg/kg/min, 26.181 mls/hr Documented by: Vasopressin 40 units/ Sodium (Chloride) 100 mls @ 5 mls/hr IVPB [facility]; Protocol Last Titration: 06/23/20 07:15 Dose: 0 units/hr, 0 mls/hr Documented by: Norepinephrine Bitartrate 16, (000 mcg/ Sodium Chloride) 500 mls @ 9.375 mls/hr IV TITR [facility]; Protocol Last Admin: 06/23/20 08:42 Dose: Not Given Documented by: Sodium Chloride (Normal Saline -) 250 mls @ 3,000 mls/hr IV PRN PRN PRN Reason: Hypotension during Dialysis Stop: 06/21/20 16:33 Metronidazole (Flagyl 500mg Premixed Ivpb -) 500 mg in 100 mls @ 100 mls/hr IVPB Q8H-IV [facility] Last Admin: 06/23/20 09:57 Dose: 100 mls/hr Documented by: Cefepime HCl 2 gm/ Dextrose 100 mls @ 200 mls/hr IVPB BID [facility] Last Admin: 06/23/20 09:09 Dose: 200 mls/hr Documented by: Vancomycin HCl (Vancomycin (Pre-Docked)) 1,000 mg in 250 mls @ 200 mls/hr IVPB Q24H [facility]; Protocol Last Admin: 06/23/20 13:45 Dose: 200 mls/hr Documented by: Pantoprazole Sodium (Protonix Iv) 40 mg IVPUSH DAILY [facility] Last Admin: 06/23/20 09:09 Dose: 40 mg Documented by: Polyethylene Glycol (Miralax (For Daily Use) -) 17 gm PO BID [facility] Last Admin: 06/23/20 09:09 Dose: 17 gm Documented by: Sevelamer Carbonate (Renvela Powder Packet -) 2.4 gm PO TIDCM [facility] Last Admin: 06/23/20 12:15 Dose: 2.4 gm Documented by: - Objective Vital Signs: Vital Signs Temperature 102.2 F H 06/23/20 14:00 Pulse Rate 98 H 06/23/20 14:00 Respiratory Rate 22 H 06/23/20 14:00 Blood Pressure 115/52 L 06/23/20 14:00 O2 Sat by Pulse Oximetry (%) 95 06/23/20 14:00 Constitutional: Yes: Well Nourished Eyes: Yes: WNL Neurological: Yes: Babinski positive, Cran Nerves II-XII Intact, Loss of Sensa tion Labs: CBC, BMP 06/23/20 06:00 06/23/20 06:00 INR, PTT INR 1.32 (0.83-1.09) H 06/23/20 06:00 Fibrinogen > 500.0 mg/dL (238-498) H 06/14/20 19:20 Problem List - Problems (1) Altered mental status Assessment/Plan: supportive care. Daily CBC. CAT scan of the head when medically stable. Follow-up with the ICU team Code(s): R41.82 - ALTERED MENTAL STATUS, UNSPECIFIED (2) AML (acute myeloblastic leukemia) Code(s): C92.00 - ACUTE MYELOBLASTIC LEUKEMIA, NOT HAVING ACHIEVED REMISSION
[2020-06-23] MEDS ORDERED: MIDAZOLAM IN 0.9 % SOD.CHLORID 1 MG/1 ML PLAST..BAG ONE (15:40)
[2020-06-23] MEDS ORDERED: MIDAZOLAM IVPB SCH (15:45)
[2020-06-23] MEDS ORDERED: SODIUM CHLORIDE IVPB SCH (15:45)
[2020-06-23] MEDS ORDERED: MIDAZOLAM 100 MG in SODIUM CHLORIDE 100 ML IVPB SCH (15:46)
[2020-06-23] MEDS: ALBUMIN HUMAN 25% 100 ML VIAL IVPB SCH ×3 (15:47→22:34)
[2020-06-23] MEDS: FUROSEMIDE 40 MG/4 ML INJECTABLE VIAL IVPUSH SCH (16:47)
--- NOTE | 2020-06-23 17:59 | PN ---
Physical Exam: SUBJECTIVE: Patient seen and examined at bedside. Pt intubated and sedated. OBJECTIVE: Vital Signs Period Temp Pulse Resp BP Sys/Carrillo Pulse Ox Last 24 Hr 98.6 F-103.5 F 74-108 21-29 106-144/50-66 95-100 GENERAL: The patient is intubated and sedated . HEAD: Normal with no signs of trauma. ENT: Ears normal, nares patent, intubated NECK: Trachea midline, supple. LUNGS: bilateral rhonchi HEART: Regular rate and rhythm, S1, S2 without murmur, rub or gallop. ABDOMEN: distended no grimacing, splenomegaly EXTREMITIES: 2+ pulses bilateral lower ext 2+ edema SKIN: Warm, dry, normal turgor, no rashes or lesions noted Laboratory Results - last 24 hr 06/17/20 06/20/20 06/23/20 13:45 19:30 05:15 WBC RBC Hgb Hct MCV MCH MCHC RDW Plt Count MPV Absolute Neuts (auto) Neutrophils % Neutrophils % (Manual) Band Neutrophils % Lymphocytes % Lymphocytes % (Manual) Monocytes % Monocytes % (Manual) Eosinophils % Eosinophils % (Manual) Basophils % Basophils % (Manual) Myelocytes % (Man) Promyelocytes % (Man) Blast Cells % (Manual) Nucleated RBC % Metamyelocytes Hypochromia Platelet Estimate Polychromasia Poikilocytosis Basophilic Stippling Anisocytosis Microcytosis Macrocytosis PT with INR INR PTT (Actin FS) Anticoagulation Therapy No Result Required. Puncture Site Left radial Patient Temperature No Result Required. ABG pH 7.414 ABG pCO2 37.70 ABG pO2 69.6 L ABG HCO3 23.6 ABG O2 Sat (Measured) 94.3 L ABG O2 Content No Result Required. ABG Base Excess -0.9 Rhett Test Positive Patient On Oxygen Yes O2 Delivery Device Vent Oxygen Flow Rate 40% Vent Mode A/c Vent Rate 24 Mechanical Rate Yes PEEP 5.0 Pressure Support Vent 480 Sodium Potassium Chloride Carbon Dioxide Anion Gap BUN Creatinine Est GFR (CKD-EPI)AfAm Est GFR (CKD-EPI)NonAf Random Glucose Uric Acid Calcium Phosphorus Magnesium Total Bilirubin AST ALT Alkaline Phosphatase LD Total Total Protein Albumin Hep A IgM Ab Confirm Negative Hepatitis A Ab Total Positive H Hep Bs Antigen Negative Hep Bs Antibody Non reactive Hep B Core Total Ab Negative Hep B Core IgM Ab Negative Hepatitis Be Antibody Negative Hepatitis Be Antigen Negative Blood Type O POSITIVE Antibody Screen Negative Crossmatch See Detail 06/23/20 06/23/20 06/23/20 06:00 06:00 06:00 WBC 52.1 H* RBC 2.71 L Hgb 7.3 L Hct 22.7 L MCV 83.6 MCH 26.8 MCHC 32.1 RDW 20.3 H Plt Count 44 L MPV 10.1 Absolute Neuts (auto) 47.2 H Neutrophils % 90.7 H Neutrophils % (Manual) 73.6 D Band Neutrophils % 0.0 Lymphocytes % 6.3 L D Lymphocytes % (Manual) 6.9 L D Monocytes % 2.7 L D Monocytes % (Manual) 14 H Eosinophils % 0.0 D Eosinophils % (Manual) 0.0 D Basophils % 0.3 Basophils % (Manual) 0.0 Myelocytes % (Man) 3 H D Promyelocytes % (Man) 0 D Blast Cells % (Manual) 0 D Nucleated RBC % 0 Metamyelocytes 1 D Hypochromia 0 Platelet Estimate Decreased Polychromasia 1+ Poikilocytosis 0 Basophilic Stippling 2+ Anisocytosis 1+ Microcytosis 1+ Macrocytosis 0 PT with INR 15.60 H INR 1.32 H PTT (Actin FS) 28.6 Anticoagulation Therapy Puncture Site Patient Temperature ABG pH ABG pCO2 ABG pO2 ABG HCO3 ABG O2 Sat (Measured) ABG O2 Content ABG Base Excess Rhett Test Patient On Oxygen O2 Delivery Device Oxygen Flow Rate Vent Mode Vent Rate Mechanical Rate PEEP Pressure Support Vent Sodium 135 L Potassium 3.5 Chloride 100 Carbon Dioxide 25 Anion Gap 11 BUN 52.8 H Creatinine 1.5 H Est GFR (CKD-EPI)AfAm 53.52 Est GFR (CKD-EPI)NonAf 46.17 Random Glucose 115 H Uric Acid 5.7 Calcium 7.3 L Phosphorus 3.6 Magnesium 2.1 Total Bilirubin 0.7 AST 44 H ALT 10 L Alkaline Phosphatase 157 H LD Total 479 H Total Protein 5.7 L Albumin 1.7 L Hep A IgM Ab Confirm Hepatitis A Ab Total Hep Bs Antigen Hep Bs Antibody Hep B Core Total Ab Hep B Core IgM Ab Hepatitis Be Antibody Hepatitis Be Antigen Blood Type Antibody Screen Crossmatch Active Medications Generic Name Dose Route Start Last Admin Trade Name Freq PRN Reason Stop Dose Admin Acetaminophen 1,000 mg 06/23/20 13:48 06/23/20 14:01 Ofirmev Injection - IVPB 06/24/20 13:48 1,000 mg Q8H PRN Administration FEVER Albumin Human 25 gm 06/23/20 15:00 06/23/20 15:47 Albumin Human 25% - IVPB 06/24/20 22:01 25 gm BID ERMELINDA Administration Allopurinol 300 mg 06/20/20 10:00 06/23/20 09:09 Zyloprim - PO 300 mg DAILY ERMELINDA Administration Amino Acids 30 ml 06/22/20 17:30 06/23/20 08:50 Prosource No Carb Liquid Pkt PO 30 ml BID@0800,1730 ERMELINDA Administration Artificial Tears 1 drop 06/20/20 10:00 06/23/20 09:09 Artificial Tears OU 1 drop DAILY ERMELINDA Administration Atorvastatin Calcium 20 mg 06/19/20 22:00 06/22/20 22:47 Lipitor - PO 20 mg HS ERMELINDA Administration Docusate Sodium 100 mg 06/22/20 08:55 Colace Liquid - PO Q8H PRN CONSTIPATION Furosemide 40 mg 06/23/20 14:00 06/23/20 16:47 Lasix Injection - IVPUSH 40 mg BID@0600,1400 ERMELINDA Administration Heparin Sodium (Porcine) 5,000 unit 06/21/20 14:00 06/23/20 13:49 Heparin - SQ 5,000 unit TID ERMELINDA Administration Hydrocortisone Sodium Succinate 50 mg 06/20/20 06:30 06/23/20 15:48 Solu-Cortef - IVPUSH 50 mg Q6H-IV ERMELINDA Administration Fentanyl 500 mcg in 100 mls @ 20 mls/hr 06/19/20 23:45 06/23/20 15:10 Sublimaze Ivpb IVPB 100 mcg/hr TITR ERMELINDA 20 mls/hr Administration 100 MCG/HR Propofol 1,000,000 mcg in 100 mls @ 2.618 mls/hr 06/20/20 00:30 06/23/20 17:54 Diprivan - IVPB 50 mcg/kg/min TITR ERMELINDA 26.181 mls/hr Administration Protocol 5 MCG/KG/MIN Vasopressin 40 units/ Sodium 100 mls @ 5 mls/hr 06/20/20 06:30 06/23/20 07:15 Chloride IVPB 0 units/hr ASDIR ERMELINDA 0 mls/hr Titration Protocol 2 UNITS/HR Norepinephrine Bitartrate 16, 500 mls @ 9.375 mls/hr 06/20/20 08:00 06/23/20 08:42 000 mcg/ Sodium Chloride IV Not Given TITR ERMELINDA Protocol 5 MCG/MIN Sodium Chloride 250 mls @ 3,000 mls/hr 06/20/20 16:33 Normal Saline - IV 06/21/20 16:33 PRN PRN Hypotension during Dialysis Metronidazole 500 mg in 100 mls @ 100 mls/hr 06/21/20 18:00 06/23/20 09:57 Flagyl 500mg Premixed Ivpb - IVPB 100 mls/hr Q8H-IV ERMELINDA Administration Cefepime HCl 2 gm/ Dextrose 100 mls @ 200 mls/hr 06/22/20 22:00 06/23/20 09:09 IVPB 200 mls/hr BID ERMELINDA Administration Vancomycin HCl 1,000 mg in 250 mls @ 200 mls/hr 06/23/20 12:45 06/23/20 13:45 Vancomycin (Pre-Docked) IVPB 200 mls/hr Q24H ERMELINDA Administration Protocol Midazolam HCl 100 mg/ Sodium 100 mls @ 100 mls/hr 06/23/20 15:46 06/23/20 16:06 Chloride IVPB 06/24/20 15:44 2 mg/hr TITR ERMELINDA 2 mls/hr Administration Protocol 100 MG/HR Pantoprazole Sodium 40 mg 06/21/20 10:00 06/23/20 09:09 Protonix Iv IVPUSH 40 mg DAILY ERMELINDA Administration Polyethylene Glycol 17 gm 06/19/20 22:00 06/23/20 09:09 Miralax (For Daily Use) - PO 17 gm BID ERMELINDA Administration Sevelamer Carbonate 2.4 gm 06/21/20 17:30 06/23/20 12:15 Renvela Powder Packet - PO 2.4 gm TIDCM ERMELINDA Administration ASSESSMENT/PLAN: 70 yo male pmh of htn, hld, 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 Pt intubatedd on 06/19 for hypoxic resp failure Neuro -Pt sedated on Fentanyl 120mcg/min, Midazolam and propofol - CAT scan when stable Cardio: - echo normal of 06/15/20 - pt not tachycardic at time edema may be from hypoalbuminemia may stop lasix (not stopping) according to Cardiology - edema may be fixed with transfusion due to third spacing -Pt on levo 6mcg/min being titrated down. Resp: - Pt desaturated possibly due to pt fighting the vent. Was given extra sedation with midazolam. Pt was suctioned and xray was taken. Xray showed tube was in place after vigorous suction and sedation pt sat back up to 100%. Pt vent settings were also changed with increase in PEEP 7 and FiO2 to 70. - Pt chest xray showed fluid bilaterally was added back on lasix. Renal: - appreciate nephro recommendation renal function stable -d/c shiley cath - continue fluids - lasix prn -monitor urine output - repeat labs in AM Heme Onc: - Appreciate heme onc consult on CML to AML. 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 GI - Pt feeds restarted. On Neppro ID continue cefepime (2gm)/flagyl (500) reculture cxray add vancomycin (1g) - Tylenol prn 1000 every 8 hrs - Blood cultures recultured FIN: - Fluids halted pt started on feed, hydration, monitor lytes Prophylaxis - heparin 5000 TID - Protonix for PUD Visit type - Emergency Visit Emergency Visit: Yes ED Registration Date: 06/14/20 Care time: The patient presented to the Emergency Department on the above date and was hospitalized for further evaluation of their emergent condition. - New Patient This patient is new to me today: No - Critical Care Critical Care patient: Yes Total Critical Care Time (in minutes): 36 Critical Care Statement: The care of this patient involved high complexity decision making to prevent further life threatening deterioration of the patient's condition and/or to evaluate & treat vital organ system(s) failure or risk of failure. - Medication Review Med list reviewed for High Risk Meds patients 65 and older: Yes ATTENDING PHYSICIAN STATEMENT I saw and evaluated the patient. I reviewed the resident's note and discussed the case with the resident. I agree with the resident's findings and plan as documented. SUBJECTIVE: OBJECTIVE: ASSESSMENT AND PLAN:
[2020-06-23 22:01] LABS: HEMATOCRIT 22.6 % (35.4-49); HEMOGLOBIN 7.1 GM/dL (11.7-16.9); MCH 26.5 pg (25.7-33.7); MCHC 31.3 g/dl (32.0-35.9); MEAN CELL VOLUME 84.6 fl (80-96); MEAN PLT VOLUME 11.1 fl (7.5-11.1); PLATELET COUNT 39 K/MM3 (134-434); RBC 2.68 M/mm3 (4.00-5.60); RDW 19.8 % (11.9-15.9)
[2020-06-23] MEDS: ATORVASTATIN CA 20 MG TABLET (FP) PO SCH (22:02)
[2020-06-23 22:26] LABS: WHITE BLOOD COUNT 63.8 K/mm3 (4.0-10.0)
[2020-06-24] MEDS ORDERED: FENTANYL NS IVPB 500 MCG/100 ML BAG IVPB ONE (01:22)
[2020-06-24] MEDS: FENTANYL IVPB 500 MCG/100 ML BAG IVPB SCH (01:39)
[2020-06-24] MEDS: HYDROCORTISONE SOD SUCCINATE 100 MG/2 ML VIAL IVPUSH SCH ×3 (03:10→13:39)
[2020-06-24] MEDS: PROPOFOL 1,000,000 MCG/100 ML VIAL IVPB SCH ×3 (06:10→15:39)
[2020-06-24] MEDS: HEPARIN NA (PORCINE) 5,000 UNITS/ML 1ML VIAL SQ SCH (06:10)
[2020-06-24] MEDS: FUROSEMIDE 40 MG/4 ML INJECTABLE VIAL IVPUSH SCH (06:10)
[2020-06-24 06:35] LABS: ARTERIAL BLD GAS O2 SATURATION 96.8 mmHg (95-98); ARTERIAL BLOOD GAS BASE EXCESS 0.6 mmol/L (-2-2); ARTERIAL BLOOD GAS PO2 89.1 mmHg (80-100); ARTERIAL BLOOD GAS pH 7.397 (7.350-7.450)
[2020-06-24] MEDS: VASOPRESSIN 40 UNITS in SODIUM CHLORIDE 98 ML IVPB SCH (06:51)
[2020-06-24 07:09] LABS: ALLENS TEST POSITIVE
[2020-06-24 07:10] LABS: VENT MODE A/C; VENT RATE 24
[2020-06-24 07:23] LABS: INR 1.39 (0.83-1.09); PROTHROMBIN TIME (PATIENT) 16.5 SEC (9.7-13.0)
[2020-06-24 07:26] LABS: ACTIVATED PTT 28.4 SECONDS (25.2-36.5); BASO % 0.3 % (0-2.0); EOS % 0.6 % (0-4.5); HEMATOCRIT 22.7 % (35.4-49); LYMPH % 9.6 % (8-40); MCH 25.6 pg (25.7-33.7); MCHC 30.6 g/dl (32.0-35.9); MEAN CELL VOLUME 83.6 fl (80-96); MEAN PLT VOLUME 9.7 fl (7.5-11.1); MONO % 13.2 % (3.8-10.2); NEUT % 76.3 % (42.8-82.8); RBC 2.72 M/mm3 (4.00-5.60); RDW 19.8 % (11.9-15.9)
[2020-06-24] MEDS: ACETAMINOPHEN 1000 MG/100 ML VIAL (NON FORMULARY) IVPB PRN (07:53)
[2020-06-24] MEDS: SEVELAMER CARBONATE 2.4 GM POWDER PACKET PO SCH ×3 (07:53→16:51)
[2020-06-24] MEDS: AMINO ACIDS/PROTEIN HYDROLYS 30 ML LIQUID.PKT PO SCH ×2 (07:54→16:50)
[2020-06-24 08:06] LABS: ALBUMIN 2.2 g/dl (3.4-5.0); BILIRUBIN,TOTAL 0.7 mg/dL (0.2-1); BLOOD UREA NITROGEN 57.3 mg/dL (7-18); CALCIUM 7.6 mg/dL (8.5-10.1); CREATININE 1.3 mg/dL (0.55-1.3); MAGNESIUM 2.3 mg/dL (1.8-2.4); PHOSPHOROUS 4.4 mg/dL (2.5-4.9); TOT PROT 5.5 g/dl (6.4-8.2); URIC ACID 5.5 mg/dL (2.6-7.2)
[2020-06-24 08:30] LABS: POTASSIUM 2.8 mmol/L (3.5-5.1)
--- NOTE | 2020-06-24 08:31 | PN ---
Progress Note, Physician Chief Complaint: Still intubated and sedation of Norepinephrine being titrated for pressure support. Patient noted of having rectal temp of 100.2 Tylenol given as ordered. Tube feeding being tolerated well no residual noted. - Current Medication List Current Medications: Active Medications Acetaminophen (Ofirmev Injection -) 1,000 mg IVPB Q8H PRN PRN Reason: FEVER Stop: 06/24/20 13:48 Last Admin: 06/24/20 07:53 Dose: 1,000 mg Documented by: Albumin Human (Albumin Human 25% -) 25 gm IVPB BID ERMELINDA Stop: 06/24/20 22:01 Last Admin: 06/23/20 15:47 Dose: 25 gm Documented by: Allopurinol (Zyloprim -) 300 mg PO DAILY [facility] Last Admin: 06/23/20 09:09 Dose: 300 mg Documented by: Amino Acids (Prosource No Carb Liquid Pkt) 30 ml PO BID@0800,1730 [facility] Last Admin: 06/24/20 07:54 Dose: 30 ml Documented by: Artificial Tears (Artificial Tears) 1 drop OU DAILY ERMELINDA Last Admin: 06/23/20 09:09 Dose: 1 drop Documented by: Atorvastatin Calcium (Lipitor -) 20 mg PO HS [facility] Last Admin: 06/23/20 22:02 Dose: 20 mg Documented by: Docusate Sodium (Colace Liquid -) 100 mg PO Q8H PRN PRN Reason: CONSTIPATION Furosemide (Lasix Injection -) 40 mg IVPUSH BID@0600,1400 [facility] Last Admin: 06/24/20 06:10 Dose: 40 mg Documented by: Heparin Sodium (Porcine) (Heparin -) 5,000 unit SQ TID ERMELINDA Last Admin: 06/24/20 06:10 Dose: 5,000 unit Documented by: Hydrocortisone Sodium Succinate (Solu-Cortef -) 50 mg IVPUSH Q6H-IV ERMELNIDA Last Admin: 06/24/20 08:16 Dose: 50 mg Documented by: Fentanyl (Sublimaze Ivpb) 500 mcg in 100 mls @ 20 mls/hr IVPB TITR [facility] Last Admin: 06/24/20 01:39 Dose: 100 mcg/hr, 20 mls/hr Documented by: Propofol (Diprivan -) 1,000,000 mcg in 100 mls @ 2.618 mls/hr IVPB TITR [facility]; Protocol Last Admin: 06/24/20 06:10 Dose: 50 mcg/kg/min, 26.181 mls/hr Documented by: Vasopressin 40 units/ Sodium (Chloride) 100 mls @ 5 mls/hr IVPB ASDIR ERMELINDA; Protocol Last Admin: 06/24/20 06:51 Dose: Not Given Documented by: Norepinephrine Bitartrate 16, (000 mcg/ Sodium Chloride) 500 mls @ 9.375 mls/hr IV TITR ERMELINDA; Protocol Last Admin: 06/23/20 08:42 Dose: Not Given Documented by: Sodium Chloride (Normal Saline -) 250 mls @ 3,000 mls/hr IV PRN PRN PRN Reason: Hypotension during Dialysis Stop: 06/21/20 16:33 Metronidazole (Flagyl 500mg Premixed Ivpb -) 500 mg in 100 mls @ 100 mls/hr IVPB Q8H-IV ERMELINDA Last Admin: 06/24/20 01:40 Dose: 100 mls/hr Documented by: Cefepime HCl 2 gm/ Dextrose 100 mls @ 200 mls/hr IVPB BID ERMELINDA Last Admin: 06/23/20 22:31 Dose: 200 mls/hr Documented by: Vancomycin HCl (Vancomycin (Pre-Docked)) 1,000 mg in 250 mls @ 200 mls/hr IVPB Q24H ERMELINDA; Protocol Last Admin: 06/23/20 13:45 Dose: 200 mls/hr Documented by: Midazolam HCl 100 mg/ Sodium (Chloride) 100 mls @ 100 mls/hr IVPB TITR ERMELINDA; Protocol Stop: 06/24/20 15:44 Last Admin: 06/23/20 16:06 Dose: 2 mg/hr, 2 mls/hr Documented by: Pantoprazole Sodium (Protonix Iv) 40 mg IVPUSH DAILY ERMELINDA Last Admin: 06/23/20 09:09 Dose: 40 mg Documented by: Polyethylene Glycol (Miralax (For Daily Use) -) 17 gm PO BID ERMELINDA Last Admin: 06/23/20 22:02 Dose: 17 gm Documented by: Sevelamer Carbonate (Renvela Powder Packet -) 2.4 gm PO TIDCM ERMELINDA Last Admin: 06/24/20 07:53 Dose: 2.4 gm Documented by: - Objective Vital Signs: Vital Signs Temperature 99.2 F 06/24/20 06:00 Pulse Rate 76 06/24/20 06:00 Respiratory Rate 24 H 06/24/20 06:00 Blood Pressure 106/54 L 06/24/20 06:00 O2 Sat by Pulse Oximetry (%) 97 06/24/20 06:00 Constitutional: Yes: Other Cardiovascular: Yes: Tachycardia, Pulse Irregular Respiratory: Yes: Mechanically Ventilated, Rhonchi Musculoskeletal: Yes: Muscle Weakness Edema: Yes Integumentary: Yes: Rash, Venous Stasis Changes Wound/Incision: Yes: Open to air, Reddened ...Motor Strength: LLE, RLE Labs: CBC, BMP 06/24/20 06:20 06/24/20 06:20 INR, PTT INR 1.39 (0.83-1.09) H 06/24/20 06:20 Fibrinogen > 500.0 mg/dL (238-498) H 06/14/20 19:20 Problem List - Problems (1) AML (acute myeloblastic leukemia) Code(s): C92.00 - ACUTE MYELOBLASTIC LEUKEMIA, NOT HAVING ACHIEVED REMISSION (2) CHF (congestive heart failure) Code(s): I50.9 - HEART FAILURE, UNSPECIFIED (3) Palpitations Code(s): R00.2 - PALPITATIONS (4) Shortness of breath Code(s): R06.02 - SHORTNESS OF BREATH (5) Acute renal failure Code(s): N17.9 - ACUTE KIDNEY FAILURE, UNSPECIFIED (6) Abdominal distention Code(s): R14.0 - ABDOMINAL DISTENSION (GASEOUS) (7) CML (chronic myelocytic leukemia) Code(s): C92.10 - CHRONIC MYELOID LEUK, BCR/ABL-POSITIVE, NOT ACHIEVE REMIS Assessment/Plan ON VENT SUPPORT D/W ICU TEAM WEANING PROTOCOL TOLERATED REDUCING SEDATION TO OFF THEN WEANING TODAY ON 60% FIO2 HD PER NEPHROLOGY ON ABX TRANSFUSE PRBC PER ONCOLOGY DVT 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
[2020-06-24 08:43] LABS: WHITE BLOOD COUNT 59.2 K/mm3 (4.0-10.0)
[2020-06-24 08:44] LABS: PLATELET COUNT 34 K/MM3 (134-434)
[2020-06-24] MEDS ORDERED: PT OWN MED DRAWER 7, Y5N ONE ×3 (09:05→20:20)
[2020-06-24] MEDS: ALBUMIN HUMAN 25% 100 ML VIAL IVPB SCH (09:08)
[2020-06-24] MEDS: KCL 10 MEQ IVPB 10 MEQ/100 ML INFUS.BAG IVPB SCH ×3 (09:09→11:39)
[2020-06-24] MEDS: ALLOPURINOL 300 MG TABLET (FP) PO SCH (09:10)
[2020-06-24] MEDS: PANTOPRAZOLE SODIUM 40 MG VIAL IVPUSH SCH (09:10)
[2020-06-24] MEDS: ARTIFICIAL TEARS (POLYVINYL ALCOHOL) OPTH DROPS OU SCH (09:36)
[2020-06-24 09:54] LABS: ANISOCYTOSIS 1+; MACROCYTOSIS 1+; PLATELET ESTIMATE DECREASED
--- NOTE | 2020-06-24 11:02 | PN ---
Teaching Attending Note Name of Resident: Rudy Sanabria ATTENDING PHYSICIAN STATEMENT I saw and evaluated the patient. I reviewed the resident's note and discussed the case with the resident. I agree with the resident's findings and plan as documented. SUBJECTIVE: Pt seen and examined in the ICU. Remains intubated, sedated on low dose levophed gtt. Remains febrile, cultures negative. Vented on volume assist control with 40% FiO2. OBJECTIVE: Vital Signs Period Temp Pulse Resp BP Sys/Carrillo Pulse Ox Last 24 Hr 97.1 F-102.2 F 59-104 14-24 94-124/47-58 95-100 Intake & Output 06/21/20 06/22/20 06/23/20 06/24/20 23:59 23:59 23:59 23:59 Intake Total 2232.5 2936.8 3429.8 Output Total 1280 2650 3520 2500 Balance 952.5 286.8 -90.2 -2500 Weight 87.044 kg 81.9 kg 82.2 kg 80.4 kg Gen: intubated, sedated Heart: RRR Lung: scattered rhonchi Abd: soft, nontender Ext: + edema CBC, BMP 06/24/20 06:20 06/24/20 06:20 Active Medications Acetaminophen (Ofirmev Injection -) 1,000 mg IVPB Q8H PRN PRN Reason: FEVER Stop: 06/24/20 13:48 Last Admin: 06/24/20 07:53 Dose: 1,000 mg Documented by: Albumin Human (Albumin Human 25% -) 25 gm IVPB BID [facility] Stop: 06/24/20 22:01 Last Admin: 06/24/20 09:08 Dose: 25 gm Documented by: Allopurinol (Zyloprim -) 300 mg PO DAILY [facility] Last Admin: 06/24/20 09:10 Dose: 300 mg Documented by: Amino Acids (Prosource No Carb Liquid Pkt) 30 ml PO BID@0800,1730 [facility] Last Admin: 06/24/20 07:54 Dose: 30 ml Documented by: Artificial Tears (Artificial Tears) 1 drop OU DAILY [facility] Last Admin: 06/24/20 09:36 Dose: 1 drop Documented by: Atorvastatin Calcium (Lipitor -) 20 mg PO HS [facility] Last Admin: 06/23/20 22:02 Dose: 20 mg Documented by: Docusate Sodium (Colace Liquid -) 100 mg PO Q8H PRN PRN Reason: CONSTIPATION Furosemide (Lasix Injection -) 40 mg IVPUSH BID@0600,1400 ERMELINDA Last Admin: 06/24/20 06:10 Dose: 40 mg Documented by: Heparin Sodium (Porcine) (Heparin -) 5,000 unit SQ TID ERMELINDA Last Admin: 06/24/20 06:10 Dose: 5,000 unit Documented by: Hydrocortisone Sodium Succinate (Solu-Cortef -) 50 mg IVPUSH Q6H-IV ERMELINDA Last Admin: 06/24/20 08:16 Dose: 50 mg Documented by: Fentanyl (Sublimaze Ivpb) 500 mcg in 100 mls @ 20 mls/hr IVPB TITR ERMELINDA Last Admin: 06/24/20 01:39 Dose: 100 mcg/hr, 20 mls/hr Documented by: Propofol (Diprivan -) 1,000,000 mcg in 100 mls @ 2.618 mls/hr IVPB TITR [facility]; Protocol Last Admin: 06/24/20 09:11 Dose: 50 mcg/kg/min, 26.181 mls/hr Documented by: Vasopressin 40 units/ Sodium (Chloride) 100 mls @ 5 mls/hr IVPB ASDIR [facility]; Protocol Last Admin: 06/24/20 06:51 Dose: Not Given Documented by: Norepinephrine Bitartrate 16, (000 mcg/ Sodium Chloride) 500 mls @ 9.375 mls/hr IV TITR [facility]; Protocol Last Titration: 06/24/20 09:34 Dose: 7 mcg/min, 13.125 mls/hr Documented by: Sodium Chloride (Normal Saline -) 250 mls @ 3,000 mls/hr IV PRN PRN PRN Reason: Hypotension during Dialysis Stop: 06/21/20 16:33 Metronidazole (Flagyl 500mg Premixed Ivpb -) 500 mg in 100 mls @ 100 mls/hr IVPB Q8H-IV ERMELINDA Last Admin: 06/24/20 09:10 Dose: 100 mls/hr Documented by: Cefepime HCl 2 gm/ Dextrose 100 mls @ 200 mls/hr IVPB BID ERMELINDA Last Admin: 06/23/20 22:31 Dose: 200 mls/hr Documented by: Vancomycin HCl (Vancomycin (Pre-Docked)) 1,000 mg in 250 mls @ 200 mls/hr IVPB Q24H ERMELINDA; Protocol Last Admin: 06/23/20 13:45 Dose: 200 mls/hr Documented by: Midazolam HCl 100 mg/ Sodium (Chloride) 100 mls @ 100 mls/hr IVPB TITR ERMELINDA; Protocol Stop: 06/24/20 15:44 Last Admin: 06/23/20 16:06 Dose: 2 mg/hr, 2 mls/hr Documented by: Potassium Chloride (Potassium Chloride 10 Meq Premix Ivpb -) 10 meq in 100 mls @ 100 mls/hr IVPB Q60M ERMELINDA Stop: 06/24/20 11:29 Last Admin: 06/24/20 10:16 Dose: 100 mls/hr Documented by: Pantoprazole Sodium (Protonix Iv) 40 mg IVPUSH DAILY [facility] Last Admin: 06/24/20 09:10 Dose: 40 mg Documented by: Polyethylene Glycol (Miralax (For Daily Use) -) 17 gm PO BID [facility] Last Admin: 06/23/20 22:02 Dose: 17 gm Documented by: Sevelamer Carbonate (Renvela Powder Packet -) 2.4 gm PO TIDCM [facility] Last Admin: 06/24/20 07:53 Dose: 2.4 gm Documented by: ASSESSMENT AND PLAN: Acute Hypoxic Respiratory Failure AML Tumor Lysis Syndrome Shock - ?Septic Acute Kidney Injury Hyperkalemia improved Anemia/Thrombocytopenia HTN Hyperlipidemia - continue antibiotics - monitor urine output, creatinine - monitor LDH, uric acid - titrate pressors to maintain MAP >65 - taper stress dose steroids - titrate FiO2 to keep SpO2 >90% - continue volume assist control - daily sedation vacations to assess mental status - enteral feeds - DVT/GI prophylaxis - continue ICU monitoring critical care time spent in reviewing chart, evaluating patient and formulating plan 35 min
[2020-06-24] MEDS: CEFEPIME 2 GM in DEXTROSE 5%-WATER 100 ML IVPB SCH ×2 (11:38→21:33)
[2020-06-24] MEDS: POLYETHYLENE GLYCOL 3350 119 GM BTL PO SCH ×2 (11:38→21:33)
[2020-06-24] MEDS: VANCOMYCIN 1 GRAM (PRE-DOCKED) 1,000 MG/250 ML BAG IVPB SCH (11:44)
[2020-06-24] MEDS ORDERED: MIDAZOLAM IN 0.9 % SOD.CHLORID 1 MG/1 ML PLAST..BAG ONE (11:56)
--- NOTE | 2020-06-24 13:12 | PN ---
Physical Exam: SUBJECTIVE: Patient seen and examined. Pt sedated and intubated. OBJECTIVE: GENERAL: The patient is intubated and sedated . HEAD: Normal with no signs of trauma. ENT: Ears normal, nares patent, intubated NECK: Trachea midline, supple. LUNGS: bilateral rhonchi improved from 06/24 HEART: Regular rate and rhythm, S1, S2 without murmur, rub or gallop. ABDOMEN: distended no grimacing, splenomegaly EXTREMITIES: 2+ pulses bilateral lower ext 2+ edema. With RUE also has lynn a SKIN: Warm, dry, normal turgor, no rashes or lesions noted Vital Signs Period Temp Pulse Resp BP Sys/Carrillo Pulse Ox Last 24 Hr 97.1 F-102.2 F 59-98 14-24 94-119/47-58 95-100 Laboratory Results - last 24 hr 06/21/20 06/23/20 06/24/20 00:10 21:30 05:44 WBC 63.8 H* RBC 2.68 L Hgb 7.1 L Hct 22.6 L MCV 84.6 MCH 26.5 MCHC 31.3 L RDW 19.8 H Plt Count 39 L MPV 11.1 Absolute Neuts (auto) Neutrophils % Neutrophils % (Manual) Band Neutrophils % Lymphocytes % Lymphocytes % (Manual) Monocytes % Monocytes % (Manual) Eosinophils % Eosinophils % (Manual) Basophils % Basophils % (Manual) Myelocytes % (Man) Promyelocytes % (Man) Blast Cells % (Manual) Nucleated RBC % Metamyelocytes Hypochromia Platelet Estimate Polychromasia Poikilocytosis Basophilic Stippling Anisocytosis Microcytosis Macrocytosis Fragmented RBCs PT with INR INR PTT (Actin FS) Anticoagulation Therapy No Result Required. Puncture Site Left radial Patient Temperature No Result Required. ABG pH 7.397 ABG pCO2 42.40 ABG pO2 89.1 ABG HCO3 25.5 ABG O2 Sat (Measured) 96.8 ABG O2 Content No Result Required. ABG Base Excess 0.6 Rhett Test Positive Patient On Oxygen Yes O2 Delivery Device Vent Oxygen Flow Rate 50% Vent Mode A/c Vent Rate 24 Mechanical Rate Yes PEEP 6.0 Pressure Support Vent 480 Sodium Potassium Chloride Carbon Dioxide Anion Gap BUN Creatinine Est GFR (CKD-EPI)AfAm Est GFR (CKD-EPI)NonAf Random Glucose Uric Acid Calcium Phosphorus Magnesium Total Bilirubin AST ALT Alkaline Phosphatase LD Total Total Protein Albumin Blood Type O POSITIVE Antibody Screen Negative Crossmatch See Detail 06/24/20 06/24/20 06/24/20 06:20 06:20 06:20 WBC 59.2 H* RBC 2.72 L Hgb 7.0 L Hct 22.7 L MCV 83.6 MCH 25.6 L MCHC 30.6 L RDW 19.8 H Plt Count 34 L* MPV 9.7 D Absolute Neuts (auto) 45.1 H Neutrophils % 76.3 Neutrophils % (Manual) 68.7 Band Neutrophils % 3.1 Lymphocytes % 9.6 D Lymphocytes % (Manual) 2.0 L D Monocytes % 13.2 H D Monocytes % (Manual) 10 Eosinophils % 0.6 D Eosinophils % (Manual) 1.0 D Basophils % 0.3 Basophils % (Manual) 1.0 D Myelocytes % (Man) 12 H D Promyelocytes % (Man) 0 Blast Cells % (Manual) 0 Nucleated RBC % 3 H Metamyelocytes 1 Hypochromia 0 Platelet Estimate Decreased Polychromasia 0 Poikilocytosis 0 Basophilic Stippling 1+ Anisocytosis 1+ Microcytosis 1+ Macrocytosis 1+ Fragmented RBCs 1+ PT with INR 16.50 H INR 1.39 H PTT (Actin FS) 28.4 Anticoagulation Therapy Puncture Site Patient Temperature ABG pH ABG pCO2 ABG pO2 ABG HCO3 ABG O2 Sat (Measured) ABG O2 Content ABG Base Excess Rhett Test Patient On Oxygen O2 Delivery Device Oxygen Flow Rate Vent Mode Vent Rate Mechanical Rate PEEP Pressure Support Vent Sodium 140 Potassium 2.8 L* Chloride 105 Carbon Dioxide 25 Anion Gap 10 BUN 57.3 H Creatinine 1.3 Est GFR (CKD-EPI)AfAm 63.62 Est GFR (CKD-EPI)NonAf 54.90 Random Glucose 117 H Uric Acid 5.5 Calcium 7.6 L Phosphorus 4.4 Magnesium 2.3 Total Bilirubin 0.7 AST 26 ALT 7 L Alkaline Phosphatase 120 H LD Total 341 H Total Protein 5.5 L Albumin 2.2 L Blood Type Antibody Screen Crossmatch Active Medications Generic Name Dose Route Start Last Admin Trade Name Freq PRN Reason Stop Dose Admin Acetaminophen 1,000 mg 06/23/20 13:48 06/24/20 07:53 Ofirmev Injection - IVPB 06/24/20 13:48 1,000 mg Q8H PRN Administration FEVER Albumin Human 25 gm 06/23/20 15:00 06/24/20 09:08 Albumin Human 25% - IVPB 06/24/20 22:01 25 gm BID ERMELINDA Administration Allopurinol 300 mg 06/20/20 10:00 06/24/20 09:10 Zyloprim - PO 300 mg DAILY ERMELINDA Administration Amino Acids 30 ml 06/22/20 17:30 06/24/20 07:54 Prosource No Carb Liquid Pkt PO 30 ml BID@0800,1730 ERMELINDA Administration Artificial Tears 1 drop 06/20/20 10:00 06/24/20 09:36 Artificial Tears OU 1 drop DAILY ERMELINDA Administration Atorvastatin Calcium 20 mg 06/19/20 22:00 06/23/20 22:02 Lipitor - PO 20 mg HS ERMELINDA Administration Docusate Sodium 100 mg 06/22/20 08:55 Colace Liquid - PO Q8H PRN CONSTIPATION Furosemide 40 mg 06/23/20 14:00 06/24/20 06:10 Lasix Injection - IVPUSH 40 mg BID@0600,1400 ERMELINDA Administration Hydrocortisone Sodium Succinate 50 mg 06/20/20 06:30 06/24/20 08:16 Solu-Cortef - IVPUSH 50 mg Q6H-IV ERMELINDA Administration Fentanyl 500 mcg in 100 mls @ 20 mls/hr 06/19/20 23:45 06/24/20 01:39 Sublimaze Ivpb IVPB 100 mcg/hr TITR ERMELINDA 20 mls/hr Administration 100 MCG/HR Propofol 1,000,000 mcg in 100 mls @ 2.618 mls/hr 06/20/20 00:30 06/24/20 09:11 Diprivan - IVPB 50 mcg/kg/min TITR ERMELINDA 26.181 mls/hr Administration Protocol 5 MCG/KG/MIN Vasopressin 40 units/ Sodium 100 mls @ 5 mls/hr 06/20/20 06:30 06/24/20 06:51 Chloride IVPB Not Given ASDIR ERMELINDA Protocol 2 UNITS/HR Norepinephrine Bitartrate 16, 500 mls @ 9.375 mls/hr 06/20/20 08:00 06/24/20 09:34 000 mcg/ Sodium Chloride IV 7 mcg/min TITR ERMELINDA 13.125 mls/hr Titration Protocol 5 MCG/MIN Sodium Chloride 250 mls @ 3,000 mls/hr 06/20/20 16:33 Normal Saline - IV 06/21/20 16:33 PRN PRN Hypotension during Dialysis Metronidazole 500 mg in 100 mls @ 100 mls/hr 06/21/20 18:00 06/24/20 09:10 Flagyl 500mg Premixed Ivpb - IVPB 100 mls/hr Q8H-IV ERMELINDA Administration Cefepime HCl 2 gm/ Dextrose 100 mls @ 200 mls/hr 06/22/20 22:00 06/24/20 11:38 IVPB 200 mls/hr BID ERMELINDA Administration Vancomycin HCl 1,000 mg in 250 mls @ 200 mls/hr 06/23/20 12:45 06/24/20 11:44 Vancomycin (Pre-Docked) IVPB 200 mls/hr Q24H ERMELINDA Administration Protocol Midazolam HCl 100 mg/ Sodium 100 mls @ 100 mls/hr 06/23/20 15:46 06/23/20 16:06 Chloride IVPB 06/24/20 15:44 2 mg/hr TITR ERMELINDA 2 mls/hr Administration Protocol 100 MG/HR Pantoprazole Sodium 40 mg 06/21/20 10:00 06/24/20 09:10 Protonix Iv IVPUSH 40 mg DAILY ERMELINDA Administration Polyethylene Glycol 17 gm 06/19/20 22:00 06/24/20 11:38 Miralax (For Daily Use) - PO 17 gm BID ERMELINDA Administration Sevelamer Carbonate 2.4 gm 06/21/20 17:30 06/24/20 11:45 Renvela Powder Packet - PO 2.4 gm TIDCM ERMELINDA Administration ASSESSMENT/PLAN: 70 yo male pmh of htn, hld, 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 Pt intubatedd on 06/19 for hypoxic resp failure Neuro -Pt sedated on Fentanyl 120mcg/min, Midazolam and propofol - CAT scan when stable Cardio: - echo normal of 06/15/20 - pt not tachycardic at time edema may be from hypoalbuminemia may stop lasix according to Cardiology - edema may be fixed with transfusion due to third spacing - Pt on levo 7mcg due to hypotension pt will monitor for MAP<65 Resp: - Pt aeration improved so will titrate down vent FiO2 dropped down from 50 to 40. Rest stayed same PEEP 6, Tital Volume 480 RR 14 pplat 14. - Pt CXR after lasix need to be done. Lasix dc to replete intravascular volume - monitor LDH, uric acid - titrate pressors to maintain MAP >65 - taper stress dose steroids to q12hr - titrate FiO2 to keep SpO2 >90% - continue volume assist control Renal: - appreciate nephro recommendation renal function stable -d/c shiley cath on 06/23 - replace potassium monitor K and phos Heme Onc: - Appreciate heme onc consult on CML to AML. Pt has tumor lysis syndrome from 06/19 rasburicase causing inc K and phos - will follow Uric acid and LDH due to tumor lysis syndrome - pt on 300 mg of allopurinorl -Renvela for elevated phos Renvela for elevated phos -blood cultures negative -continue Cefepime and flagyl -Anemia - Transfuse to keep Hgb < 7 -Transfuse for bleeding or platelets < 30,000 as patient febrile and platelets dysfunctional -monitor CBC, CMP, LDH, uric acid daily, and DIC labs as well - PT/PTT/fibrinogen GI - Pt feeds restarted. On Neppro ID continue cefepime (2gm)/flagyl (500) reculture cxray add vancomycin (1g) - Tylenol prn 1000 every 8 hrs - Blood cultures recultured FIN: - Fluids halted pt started on feed, hydration, monitor lytes Prophylaxis - heparin 5000 TID - Protonix for PUD Visit type - Emergency Visit Emergency Visit: Yes ED Registration Date: 06/14/20 Care time: The patient presented to the Emergency Department on the above date and was hospitalized for further evaluation of their emergent condition. - New Patient This patient is new to me today: No - Critical Care Critical Care patient: Yes Total Critical Care Time (in minutes): 36 Critical Care Statement: The care of this patient involved high complexity decision making to prevent further life threatening deterioration of the patient's condition and/or to evaluate & treat vital organ system(s) failure or risk of failure. - Medication Review Med list reviewed for High Risk Meds patients 65 and older: Yes ATTENDING PHYSICIAN STATEMENT I saw and evaluated the patient. I reviewed the resident's note and discussed the case with the resident. I agree with the resident's findings and plan as documented. SUBJECTIVE: OBJECTIVE: ASSESSMENT AND PLAN:
--- NOTE | 2020-06-24 13:13 | PN ---
Teaching Attending Note Name of Resident: Alee Nelson ATTENDING PHYSICIAN STATEMENT I saw and evaluated the patient. I reviewed the resident's note and discussed the case with the resident. I agree with the resident's findings and plan as documented. 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 WBC 198,000. 30% blasts s/p rasburicase 6mg IVSS x 1 dose 06/14 G-6 PD -- not deficient s/p 5 doses decitabine completed 06/19/20 hydrea 1gbid held due to ongoing tumor lysis TUMOR LYSIS --- febrile to 104.7 06/19 PM / RIsing K and Phos s/p 2nd dose rasburicase on 06/19 EMergent dialysis as oliguric with rising K/Phos on 06/20/20 continue renvela. continue allopurinol Creatinine improving. dialysis on hold Monitor lytes/ca/phos/LDH/uric acid Anemia : Transfuse for Hgb < 7 Transfuse for bleeding or platelets < 30,000 as patient febrile and platelets dysfunctional aswell Monitor DIC labs -- PT/PTT/fibrinogen CT a/p -- Rt. > lt. pleural effusions. Hepatosplenomegaly. Perisplenic fluid collection. Diverticulosis to correlate clinically for diverticulitis Blood cultures negative Continue empiric antibiotics
--- NOTE | 2020-06-24 14:11 | PN ---
Physical Exam: SUBJECTIVE: Patient seen and examined. Still intubated, sedated. On pressors. still having low grade fevers. OBJECTIVE: Vital Signs Temperature 100.6 F H 06/24/20 10:00 Pulse Rate 92 H 06/24/20 12:00 Respiratory Rate 23 H 06/24/20 12:00 Blood Pressure 115/52 L 06/24/20 12:00 O2 Sat by Pulse Oximetry (%) 96 06/24/20 12:00 GENERAL: The patient is intubated, sedated EYES: PERRLA, conjunctiva clear. ENT: dry mucous membranes, ET tube in place NECK: supple LUNGS: vented breath sounds b/l, decreased breath sounds bilateral bases HEART: Regular rate and rhythm, S1, S2 ABDOMEN: Soft, does not grimace on palpation, hypoactive bowel sounds, +splenomegaly EXTREMITIES: 2+ pulses, warm, well-perfused, +2 b/l pitting edema SKIN: Warm, dry, normal turgor Laboratory Results - last 24 hr 06/21/20 06/23/20 06/24/20 00:10 21:30 05:44 WBC 63.8 H* RBC 2.68 L Hgb 7.1 L Hct 22.6 L MCV 84.6 MCH 26.5 MCHC 31.3 L RDW 19.8 H Plt Count 39 L MPV 11.1 Absolute Neuts (auto) Neutrophils % Neutrophils % (Manual) Band Neutrophils % Lymphocytes % Lymphocytes % (Manual) Monocytes % Monocytes % (Manual) Eosinophils % Eosinophils % (Manual) Basophils % Basophils % (Manual) Myelocytes % (Man) Promyelocytes % (Man) Blast Cells % (Manual) Nucleated RBC % Metamyelocytes Hypochromia Platelet Estimate Polychromasia Poikilocytosis Basophilic Stippling Anisocytosis Microcytosis Macrocytosis Fragmented RBCs PT with INR INR PTT (Actin FS) Anticoagulation Therapy No Result Required. Puncture Site Left radial Patient Temperature No Result Required. ABG pH 7.397 ABG pCO2 42.40 ABG pO2 89.1 ABG HCO3 25.5 ABG O2 Sat (Measured) 96.8 ABG O2 Content No Result Required. ABG Base Excess 0.6 Rhett Test Positive Patient On Oxygen Yes O2 Delivery Device Vent Oxygen Flow Rate 50% Vent Mode A/c Vent Rate 24 Mechanical Rate Yes PEEP 6.0 Pressure Support Vent 480 Sodium Potassium Chloride Carbon Dioxide Anion Gap BUN Creatinine Est GFR (CKD-EPI)AfAm Est GFR (CKD-EPI)NonAf Random Glucose Uric Acid Calcium Phosphorus Magnesium Total Bilirubin AST ALT Alkaline Phosphatase LD Total Total Protein Albumin Blood Type O POSITIVE Antibody Screen Negative Crossmatch See Detail 06/24/20 06/24/20 06/24/20 06:20 06:20 06:20 WBC 59.2 H* RBC 2.72 L Hgb 7.0 L Hct 22.7 L MCV 83.6 MCH 25.6 L MCHC 30.6 L RDW 19.8 H Plt Count 34 L* MPV 9.7 D Absolute Neuts (auto) 45.1 H Neutrophils % 76.3 Neutrophils % (Manual) 68.7 Band Neutrophils % 3.1 Lymphocytes % 9.6 D Lymphocytes % (Manual) 2.0 L D Monocytes % 13.2 H D Monocytes % (Manual) 10 Eosinophils % 0.6 D Eosinophils % (Manual) 1.0 D Basophils % 0.3 Basophils % (Manual) 1.0 D Myelocytes % (Man) 12 H D Promyelocytes % (Man) 0 Blast Cells % (Manual) 0 Nucleated RBC % 3 H Metamyelocytes 1 Hypochromia 0 Platelet Estimate Decreased Polychromasia 0 Poikilocytosis 0 Basophilic Stippling 1+ Anisocytosis 1+ Microcytosis 1+ Macrocytosis 1+ Fragmented RBCs 1+ PT with INR 16.50 H INR 1.39 H PTT (Actin FS) 28.4 Anticoagulation Therapy Puncture Site Patient Temperature ABG pH ABG pCO2 ABG pO2 ABG HCO3 ABG O2 Sat (Measured) ABG O2 Content ABG Base Excess Rhett Test Patient On Oxygen O2 Delivery Device Oxygen Flow Rate Vent Mode Vent Rate Mechanical Rate PEEP Pressure Support Vent Sodium 140 Potassium 2.8 L* Chloride 105 Carbon Dioxide 25 Anion Gap 10 BUN 57.3 H Creatinine 1.3 Est GFR (CKD-EPI)AfAm 63.62 Est GFR (CKD-EPI)NonAf 54.90 Random Glucose 117 H Uric Acid 5.5 Calcium 7.6 L Phosphorus 4.4 Magnesium 2.3 Total Bilirubin 0.7 AST 26 ALT 7 L Alkaline Phosphatase 120 H LD Total 341 H Total Protein 5.5 L Albumin 2.2 L Blood Type Antibody Screen Crossmatch Active Medications Generic Name Dose Route Start Last Admin Trade Name Freq PRN Reason Stop Dose Admin Allopurinol 300 mg 06/20/20 10:00 06/24/20 09:10 Zyloprim - PO 300 mg DAILY ERMELINDA Administration Amino Acids 30 ml 06/22/20 17:30 06/24/20 07:54 Prosource No Carb Liquid Pkt PO 30 ml BID@0800,1730 ERMELINDA Administration Artificial Tears 1 drop 06/20/20 10:00 06/24/20 09:36 Artificial Tears OU 1 drop DAILY ERMELINDA Administration Atorvastatin Calcium 20 mg 06/19/20 22:00 06/23/20 22:02 Lipitor - PO 20 mg HS ERMELINDA Administration Docusate Sodium 100 mg 06/22/20 08:55 Colace Liquid - PO Q8H PRN CONSTIPATION Hydrocortisone Sodium Succinate 50 mg 06/24/20 13:15 06/24/20 13:39 Solu-Cortef - IVPUSH 50 mg Q12H ERMELINDA Administration Fentanyl 500 mcg in 100 mls @ 20 mls/hr 06/19/20 23:45 06/24/20 01:39 Sublimaze Ivpb IVPB 100 mcg/hr TITR ERMELINDA 20 mls/hr Administration 100 MCG/HR Propofol 1,000,000 mcg in 100 mls @ 2.618 mls/hr 06/20/20 00:30 06/24/20 09:11 Diprivan - IVPB 50 mcg/kg/min TITR ERMELINDA 26.181 mls/hr Administration Protocol 5 MCG/KG/MIN Vasopressin 40 units/ Sodium 100 mls @ 5 mls/hr 06/20/20 06:30 06/24/20 06:51 Chloride IVPB Not Given ASDIR ERMELINDA Protocol 2 UNITS/HR Norepinephrine Bitartrate 16, 500 mls @ 9.375 mls/hr 06/20/20 08:00 06/24/20 09:34 000 mcg/ Sodium Chloride IV 7 mcg/min TITR ERMELINDA 13.125 mls/hr Titration Protocol 5 MCG/MIN Sodium Chloride 250 mls @ 3,000 mls/hr 06/20/20 16:33 Normal Saline - IV 06/21/20 16:33 PRN PRN Hypotension during Dialysis Metronidazole 500 mg in 100 mls @ 100 mls/hr 06/21/20 18:00 06/24/20 09:10 Flagyl 500mg Premixed Ivpb - IVPB 100 mls/hr Q8H-IV ERMELINDA Administration Cefepime HCl 2 gm/ Dextrose 100 mls @ 200 mls/hr 06/22/20 22:00 06/24/20 11:38 IVPB 200 mls/hr BID ERMELINDA Administration Vancomycin HCl 1,000 mg in 250 mls @ 200 mls/hr 06/23/20 12:45 06/24/20 11:44 Vancomycin (Pre-Docked) IVPB 200 mls/hr Q24H ERMELINDA Administration Protocol Midazolam HCl 100 mg/ Sodium 100 mls @ 100 mls/hr 06/23/20 15:46 06/23/20 16:06 Chloride IVPB 06/24/20 15:44 2 mg/hr TITR ERMELINDA 2 mls/hr Administration Protocol 100 MG/HR Pantoprazole Sodium 40 mg 06/21/20 10:00 06/24/20 09:10 Protonix Iv IVPUSH 40 mg DAILY ERMELINDA Administration Polyethylene Glycol 17 gm 06/19/20 22:00 06/24/20 11:38 Miralax (For Daily Use) - PO 17 gm BID ERMELINDA Administration Sevelamer Carbonate 2.4 gm 06/21/20 17:30 06/24/20 11:45 Renvela Powder Packet - PO 2.4 gm TIDCM ERMELINDA Administration ASSESSMENT/PLAN: Patient is a 70 year old male with past medical history of HTN, HLD, CKD, 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 We have been consulted for further evaluation of CMML. 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 Splenomegaly. -WBC 198k, [place] [id number] on admission -Rasburicase 6mg x1 on admission, then Hydrea 1000mg bid started 06/14 -G6PD level not deficient -Allopurinol dose to 300mg daily -Completed 5 doses of Decitabine 06/14 - 06/19 -CT AP 06/18 - Right > Left pleural effusion, marked splenomegaly with perisplenic fluid collection, sigmoid diverticulosis -patient started having fevers with Tmax of 104.7, with rising K and Phos 06/19 -Rasburicase 2nd dose given 06/19, Hydrea held due to ongoing tumor lysis -Intubated 06/19 for hypoxic respiratory failure, Dialysis 06/20 -Renvela for elevated phos -blood cultures negative -continue Cefepime and flagyl -Anemia - Transfuse to keep Hgb < 7 -Transfuse for bleeding or platelets < 30,000 as patient febrile and platelets dysfunctional -monitor CBC, CMP, LDH, uric acid daily, and DIC labs as well - PT/PTT/fibrinogen -pulm consulted. recs appreciated. -cardio consulted. recs appreciated. -ID consulted. recs appreciated. -nephro consulted. recs appreciated. Visit type - Emergency Visit Emergency Visit: Yes ED Registration Date: 06/14/20 Care time: The patient presented to the Emergency Department on the above date and was hospitalized for further evaluation of their emergent condition. - New Patient This patient is new to me today: No - Critical Care Critical Care patient: Yes Total Critical Care Time (in minutes): 35 Critical Care Statement: The care of this patient involved high complexity decision making to prevent further life threatening deterioration of the patient's condition and/or to evaluate & treat vital organ system(s) failure or risk of failure. - Medication Review Med list reviewed for High Risk Meds patients 65 and older: Yes ATTENDING PHYSICIAN STATEMENT I saw and evaluated the patient. I reviewed the resident's note and discussed the case with the resident. I agree with the resident's findings and plan as documented. SUBJECTIVE: OBJECTIVE: ASSESSMENT AND PLAN:
[2020-06-24] MEDS ORDERED: POTASSIUM CHLORIDE ORAL LIQUID 20 MEQ/15 ML PO ONE (14:38)
[2020-06-24 16:18] LABS: BASO % 0.2 % (0-2.0); EOS % 0.1 % (0-4.5); HEMATOCRIT 22.1 % (35.4-49); LYMPH % 2.4 % (8-40); MCH 25.8 pg (25.7-33.7); MCHC 30.3 g/dl (32.0-35.9); MEAN CELL VOLUME 85.3 fl (80-96); MEAN PLT VOLUME 10.6 fl (7.5-11.1); MONO % 3.8 % (3.8-10.2); NEUT % 93.5 % (42.8-82.8)
[2020-06-24 16:37] LABS: HEMOGLOBIN 6.7 GM/dL (11.7-16.9); PLATELET COUNT 32 K/MM3 (134-434); WHITE BLOOD COUNT 63.9 K/mm3 (4.0-10.0)
--- NOTE | 2020-06-24 17:18 | PN ---
Progress Note, Physician History of Present Illness: Pt seen and examined at bedside. He remains in the ICU. He remains intubated. - Current Medication List Current Medications: Active Medications Allopurinol (Zyloprim -) 300 mg PO DAILY [facility] Last Admin: 06/24/20 09:10 Dose: 300 mg Documented by: Amino Acids (Prosource No Carb Liquid Pkt) 30 ml PO BID@0800,1730 [facility] Last Admin: 06/24/20 16:50 Dose: 30 ml Documented by: Artificial Tears (Artificial Tears) 1 drop OU DAILY [facility] Last Admin: 06/24/20 09:36 Dose: 1 drop Documented by: Atorvastatin Calcium (Lipitor -) 20 mg PO HS [facility] Last Admin: 06/23/20 22:02 Dose: 20 mg Documented by: Docusate Sodium (Colace Liquid -) 100 mg PO Q8H PRN PRN Reason: CONSTIPATION Hydrocortisone Sodium Succinate (Solu-Cortef -) 50 mg IVPUSH Q12H [facility] Last Admin: 06/24/20 13:39 Dose: 50 mg Documented by: Fentanyl (Sublimaze Ivpb) 500 mcg in 100 mls @ 20 mls/hr IVPB TITR [facility] Last Admin: 06/24/20 01:39 Dose: 100 mcg/hr, 20 mls/hr Documented by: Propofol (Diprivan -) 1,000,000 mcg in 100 mls @ 2.618 mls/hr IVPB TITR [facility]; Protocol Last Admin: 06/24/20 15:39 Dose: 50 mcg/kg/min, 26.181 mls/hr Documented by: Vasopressin 40 units/ Sodium (Chloride) 100 mls @ 5 mls/hr IVPB ASDIR [facility]; Protocol Last Admin: 06/24/20 06:51 Dose: Not Given Documented by: Norepinephrine Bitartrate 16, (000 mcg/ Sodium Chloride) 500 mls @ 9.375 mls/hr IV TITR [facility]; Protocol Last Titration: 06/24/20 09:34 Dose: 7 mcg/min, 13.125 mls/hr Documented by: Sodium Chloride (Normal Saline -) 250 mls @ 3,000 mls/hr IV PRN PRN PRN Reason: Hypotension during Dialysis Stop: 06/21/20 16:33 Metronidazole (Flagyl 500mg Premixed Ivpb -) 500 mg in 100 mls @ 100 mls/hr IVPB Q8H-IV [facility] Last Admin: 06/24/20 17:07 Dose: 100 mls/hr Documented by: Cefepime HCl 2 gm/ Dextrose 100 mls @ 200 mls/hr IVPB BID [facility] Last Admin: 06/24/20 11:38 Dose: 200 mls/hr Documented by: Vancomycin HCl (Vancomycin (Pre-Docked)) 1,000 mg in 250 mls @ 200 mls/hr IVPB Q24H [facility]; Protocol Last Admin: 06/24/20 11:44 Dose: 200 mls/hr Documented by: Pantoprazole Sodium (Protonix Iv) 40 mg IVPUSH DAILY [facility] Last Admin: 06/24/20 09:10 Dose: 40 mg Documented by: Polyethylene Glycol (Miralax (For Daily Use) -) 17 gm PO BID [facility] Last Admin: 06/24/20 11:38 Dose: 17 gm Documented by: Sevelamer Carbonate (Renvela Powder Packet -) 2.4 gm PO TIDCM [facility] Last Admin: 06/24/20 16:51 Dose: 2.4 gm Documented by: - Objective Vital Signs: Vital Signs Temperature 99.5 F 06/24/20 16:00 Pulse Rate 79 06/24/20 16:00 Respiratory Rate 24 H 06/24/20 17:02 Blood Pressure 111/45 L 06/24/20 16:00 O2 Sat by Pulse Oximetry (%) 97 06/24/20 16:00 Constitutional: Yes: Calm Eyes: Yes: Conjunctiva Clear Cardiovascular: Yes: S1, S2 Respiratory: Yes: Mechanically Ventilated Gastrointestinal: Yes: Soft Genitourinary: Yes: García Present Musculoskeletal: Yes: Muscle Weakness Edema: Yes Edema: LLE: 1+, RLE: 1+ Neurological: Yes: Lethargy Labs: CBC, BMP 06/24/20 15:50 06/24/20 06:20 INR, PTT INR 1.39 (0.83-1.09) H 06/24/20 06:20 Fibrinogen 279.0 mg/dL (238-498) 06/24/20 15:50 - ....Imaging Chest X-ray: Report Reviewed Problem List - Problems (1) AML (acute myeloblastic leukemia) Code(s): C92.00 - ACUTE MYELOBLASTIC LEUKEMIA, NOT HAVING ACHIEVED REMISSION (2) CHF (congestive heart failure) Code(s): I50.9 - HEART FAILURE, UNSPECIFIED (3) CML (chronic myelocytic leukemia) Code(s): C92.10 - CHRONIC MYELOID LEUK, BCR/ABL-POSITIVE, NOT ACHIEVE REMIS Assessment/Plan Current Medications Generic Name Dose Route Start Last Admin Trade Name Freq PRN Reason Stop Dose Admin Allopurinol 300 mg 06/20/20 10:00 06/24/20 09:10 Zyloprim - PO 300 mg DAILY [facility] Administration Amino Acids 30 ml 06/22/20 17:30 06/24/20 16:50 Prosource No Carb Liquid Pkt PO 30 ml BID@0800,1730 [facility] Administration Artificial Tears 1 drop 06/20/20 10:00 06/24/20 09:36 Artificial Tears OU 1 drop DAILY [facility] Administration Atorvastatin Calcium 20 mg 06/19/20 22:00 06/23/20 22:02 Lipitor - PO 20 mg HS [facility] Administration Docusate Sodium 100 mg 06/22/20 08:55 Colace Liquid - PO Q8H PRN CONSTIPATION Hydrocortisone Sodium Succinate 50 mg 06/24/20 13:15 06/24/20 13:39 Solu-Cortef - IVPUSH 50 mg Q12H [facility] Administration Fentanyl 500 mcg in 100 mls @ 20 mls/hr 06/19/20 23:45 06/24/20 01:39 Sublimaze Ivpb IVPB 100 mcg/hr TITR [facility] 20 mls/hr Administration 100 MCG/HR Propofol 1,000,000 mcg in 100 mls @ 2.618 mls/hr 06/20/20 00:30 06/24/20 15:39 Diprivan - IVPB 50 mcg/kg/min TITR [facility] 26.181 mls/hr Administration Protocol 5 MCG/KG/MIN Vasopressin 40 units/ Sodium 100 mls @ 5 mls/hr 06/20/20 06:30 06/24/20 06:51 Chloride IVPB Not Given ASDIR [facility] Protocol 2 UNITS/HR Norepinephrine Bitartrate 16, 500 mls @ 9.375 mls/hr 06/20/20 08:00 06/24/20 09:34 000 mcg/ Sodium Chloride IV 7 mcg/min TITR [facility] 13.125 mls/hr Titration Protocol 5 MCG/MIN Sodium Chloride 250 mls @ 3,000 mls/hr 06/20/20 16:33 Normal Saline - IV 06/21/20 16:33 PRN PRN Hypotension during Dialysis Metronidazole 500 mg in 100 mls @ 100 mls/hr 06/21/20 18:00 06/24/20 17:07 Flagyl 500mg Premixed Ivpb - IVPB 100 mls/hr Q8H-IV [facility] Administration Cefepime HCl 2 gm/ Dextrose 100 mls @ 200 mls/hr 06/22/20 22:00 06/24/20 11:38 IVPB 200 mls/hr BID [facility] Administration Vancomycin HCl 1,000 mg in 250 mls @ 200 mls/hr 06/23/20 12:45 06/24/20 11:44 Vancomycin (Pre-Docked) IVPB 200 mls/hr Q24H [facility] Administration Protocol Pantoprazole Sodium 40 mg 06/21/20 10:00 06/24/20 09:10 Protonix Iv IVPUSH 40 mg DAILY [facility] Administration Polyethylene Glycol 17 gm 06/19/20 22:00 06/24/20 11:38 Miralax (For Daily Use) - PO 17 gm BID [facility] Administration Sevelamer Carbonate 2.4 gm 06/21/20 17:30 06/24/20 16:51 Renvela Powder Packet - PO 2.4 gm TIDCM [facility] Administration Impression 1. CKD 2. CML 3. AML 4. pleural effusions 5. htn 6. tumor lysis 7. charisse 8. hyperkalemia 9. acuter resp failure Plan - replace potassium - cont phos binder - renal function improved - hold off lasix today as potassium is low - monitor phos levels - oncology follow up - cont pressors to map 65 - oncology follow up
[2020-06-24 17:24] LABS: ANISOCYTOSIS 3+; MACROCYTOSIS 0; OVALOCYTE 1+; PLATELET ESTIMATE DECREASED; TARGET CELLS 1+; TEAR DROP CELLS 1+
--- NOTE | 2020-06-24 17:28 | PN ---
Progress Note (short form) - Note Progress Note: remains intubated fevers improved Vital Signs Period Temp Pulse Resp BP Sys/Carrillo Pulse Ox Last 24 Hr 97.1 F-100.6 F 59-97 14-24 94-119/43-58 95-100 cor-rrr lungs clear abd soft,nt ext no edema CBC, BMP 06/24/20 15:50 06/24/20 06:20 Microbiology 06/22/20 15:30 Blood - Peripheral Venous Blood Culture - Preliminary NO GROWTH OBTAINED AFTER 48 HOURS, INCUBATION TO CONTINUE FOR 3 DAYS. 06/22/20 15:30 Blood - Peripheral Venous Blood Culture - Preliminary NO GROWTH OBTAINED AFTER 48 HOURS, INCUBATION TO CONTINUE FOR 3 DAYS. 06/20/20 15:00 Blood - Peripheral Venous Blood Culture - Preliminary NO GROWTH OBTAINED AFTER 96 HOURS, INCUBATION TO CONTINUE FOR 1 DAYS. 06/19/20 21:36 Blood - Peripheral Venous Blood Culture - Preliminary NO GROWTH OBTAINED AFTER 96 HOURS, INCUBATION TO CONTINUE FOR 1 DAYS. 06/20/20 11:50 Sputum - Endotrachea Suction/Ventilator Gram Stain - Final 06/20/20 11:50 Sputum - Endotrachea Suction/Ventilator Sputum Culture - Final NORMAL RESPIRATORY LYNDA 06/20/20 10:50 Urine - Urine - Catheterized Urine Culture - Final NO GROWTH OBTAINED 06/20/20 10:50 Urine For Antigen Detection Legionella Antigen - Final 06/20/20 10:50 Urine For Antigen Detection Streptococcus pneumoniae Antigen (M - Final 06/14/20 01:10 Blood - Peripheral Venous Blood Culture - Final NO GROWTH AFTER 5 DAYS INCUBATION 06/14/20 01:10 Blood - Peripheral Venous Blood Culture - Final NO GROWTH AFTER 5 DAYS INCUBATION 06/14/20 01:10 Urine - Urine Clean Catch Urine Culture - Final Staphylococcus Haemolyticus Group D Strep Or Entero Coccus a/p fevers- not neutropenic-hemodynamics improving resp failure AML s/p chemo reanl function improving tumorlysis syndrome anemia thrombocytopenia pen allergy continue cefepime/flagyl/vanco reculture Problem List - Problems (1) AML (acute myeloblastic leukemia) Code(s): C92.00 - ACUTE MYELOBLASTIC LEUKEMIA, NOT HAVING ACHIEVED REMISSION (2) Shortness of breath Code(s): R06.02 - SHORTNESS OF BREATH
[2020-06-24] MEDS: ATORVASTATIN CA 20 MG TABLET (FP) PO SCH (21:33)
[2020-06-24] MEDS: NOREPINEPHRINE BITARTRATE 16,000 MCG in SODIUM CHLORIDE 484 ML IV SCH (21:35)
[2020-06-24] MEDS ORDERED: POTASSIUM CHLORIDE TABS 20 MEQ TABLET.ER (FP) PO ONE (22:05)
--- NOTE | 2020-06-24 22:39 | PN ---
Teaching Attending Note Name of Resident: Alee Nelson ATTENDING PHYSICIAN STATEMENT I saw and evaluated the patient. I reviewed the resident's note and discussed the case with the resident. I agree with the resident's findings and plan as documented. ASSESSMENT AND PLAN: 70 yo M with h/o CMML, transformed AML. Admitted with weakness, SOLORZANO, and edema. Repiratory failure. B/L pleural eff. Intubated. Presented with elevated uirc acid, responded to rasburicase. Completed 5 days of decitabine on 06-19-2020. -Transfuse for bleeding or platelets < 30,000 -c/w current meds -c/w allopurinol for now. -continue Cefepime and flagyl -transfuse for hgb<7.0 -d/w House Staff
[2020-06-24 23:50] LABS: BLOOD UREA NITROGEN 57.4 mg/dL (7-18); CALCIUM 7.8 mg/dL (8.5-10.1); CREATININE 1.2 mg/dL (0.55-1.3); POTASSIUM 3.1 mmol/L (3.5-5.1)
[2020-06-25] MEDS: HYDROCORTISONE SOD SUCCINATE 100 MG/2 ML VIAL IVPUSH SCH ×2 (01:25→12:35)
[2020-06-25] MEDS: PROPOFOL 1,000,000 MCG/100 ML VIAL IVPB SCH ×2 (01:26→20:17)
[2020-06-25] MEDS: FENTANYL IVPB 500 MCG/100 ML BAG IVPB SCH ×2 (01:26→20:17)
[2020-06-25 06:24] LABS: ARTERIAL BLD GAS O2 SATURATION 94.5 mmHg (95-98); ARTERIAL BLOOD GAS PO2 72.4 mmHg (80-100); ARTERIAL BLOOD GAS pH 7.384 (7.350-7.450)
[2020-06-25 06:42] LABS: ALLENS TEST POSITIVE
[2020-06-25 06:43] LABS: VENT MODE A/C; VENT RATE 24
[2020-06-25] MEDS: NOREPINEPHRINE BITARTRATE 16,000 MCG in SODIUM CHLORIDE 484 ML IV SCH (07:00)
[2020-06-25 07:11] LABS: BASO % 0.2 % (0-2.0); EOS % 0.3 % (0-4.5); HEMATOCRIT 26.1 % (35.4-49); HEMOGLOBIN 8.1 GM/dL (11.7-16.9); LYMPH % 3.1 % (8-40); MCH 26.1 pg (25.7-33.7); MEAN CELL VOLUME 83.9 fl (80-96); MEAN PLT VOLUME 11.3 fl (7.5-11.1); MONO % 20.8 % (3.8-10.2); NEUT % 75.6 % (42.8-82.8); RBC 3.11 M/mm3 (4.00-5.60); RDW 19.2 % (11.9-15.9)
[2020-06-25 07:17] LABS: INR 1.33 (0.83-1.09); PROTHROMBIN TIME (PATIENT) 15.7 SEC (9.7-13.0)
[2020-06-25 07:19] LABS: ACTIVATED PTT 27.4 SECONDS (25.2-36.5)
[2020-06-25 07:20] LABS: WHITE BLOOD COUNT 66.4 K/mm3 (4.0-10.0)
[2020-06-25 07:21] LABS: PLATELET COUNT 32 K/MM3 (134-434)
[2020-06-25] MEDS: AMINO ACIDS/PROTEIN HYDROLYS 30 ML LIQUID.PKT PO SCH ×2 (07:28→16:32)
[2020-06-25] MEDS: SEVELAMER CARBONATE 2.4 GM POWDER PACKET PO SCH ×3 (07:29→16:33)
[2020-06-25 07:34] LABS: ALBUMIN 2.3 g/dl (3.4-5.0); BILIRUBIN,TOTAL 0.8 mg/dL (0.2-1); BLOOD UREA NITROGEN 56.4 mg/dL (7-18); CALCIUM 7.6 mg/dL (8.5-10.1); CREATININE 1.3 mg/dL (0.55-1.3); PHOSPHOROUS 2.5 mg/dL (2.5-4.9); POTASSIUM 3.4 mmol/L (3.5-5.1); TOT PROT 5.7 g/dl (6.4-8.2)
[2020-06-25] MEDS: KCL 10 MEQ IVPB 10 MEQ/100 ML INFUS.BAG IVPB SCH ×3 (08:41→11:28)
[2020-06-25 08:55] LABS: ANISOCYTOSIS 1+; MACROCYTOSIS 0; PLATELET ESTIMATE DECREASED
[2020-06-25] MEDS: POLYETHYLENE GLYCOL 3350 119 GM BTL PO SCH ×2 (09:11→21:04)
[2020-06-25] MEDS: PANTOPRAZOLE SODIUM 40 MG VIAL IVPUSH SCH (09:11)
[2020-06-25] MEDS: ALLOPURINOL 300 MG TABLET (FP) PO SCH (09:12)
[2020-06-25] MEDS: ARTIFICIAL TEARS (POLYVINYL ALCOHOL) OPTH DROPS OU SCH (09:12)
[2020-06-25] MEDS: CEFEPIME 2 GM in DEXTROSE 5%-WATER 100 ML IVPB SCH ×2 (09:12→21:05)
[2020-06-25] MEDS ORDERED: PT OWN MED DRAWER 7, Y5N ONE (09:14)
--- NOTE | 2020-06-25 10:37 | PN ---
Teaching Attending Note Name of Resident: Rudy Sanabria ATTENDING PHYSICIAN STATEMENT I saw and evaluated the patient. I reviewed the resident's note and discussed the case with the resident. I agree with the resident's findings and plan as documented. SUBJECTIVE: Pt seen and examined in the ICU. Remains intubated, sedated on levophed gtt. Remains febrile, cultures negative. Vented on volume assist control with 40% FiO2. OBJECTIVE: Vital Signs Period Temp Pulse Resp BP Sys/Carrillo Pulse Ox Last 24 Hr 99 F-101.8 F 78-111 21-25 100-115/43-52 95-100 Intake & Output 06/22/20 06/23/20 06/24/20 06/25/20 23:59 23:59 23:59 23:59 Intake Total 2936.8 3429.8 1861.2 934 Output Total 2650 3520 4100 1000 Balance 286.8 -90.2 -2238.8 -66 Weight 81.9 kg 82.2 kg 80.4 kg 81.6 kg Gen: intubated, sedated Heart: RRR Lung: scattered rhonchi Abd: soft, nontender Ext: + edema CBC, BMP 06/25/20 05:20 06/25/20 05:20 Active Medications Allopurinol (Zyloprim -) 300 mg PO DAILY [facility] Last Admin: 06/25/20 09:12 Dose: 300 mg Documented by: Amino Acids (Prosource No Carb Liquid Pkt) 30 ml PO BID@0800,1730 [facility] Last Admin: 06/25/20 07:28 Dose: 30 ml Documented by: Artificial Tears (Artificial Tears) 1 drop OU DAILY [facility] Last Admin: 06/25/20 09:12 Dose: 1 drop Documented by: Atorvastatin Calcium (Lipitor -) 20 mg PO HS [facility] Last Admin: 06/24/20 21:33 Dose: 20 mg Documented by: Docusate Sodium (Colace Liquid -) 100 mg PO Q8H PRN PRN Reason: CONSTIPATION Hydrocortisone Sodium Succinate (Solu-Cortef -) 50 mg IVPUSH Q12H [facility] Last Admin: 06/25/20 01:25 Dose: 50 mg Documented by: Fentanyl (Sublimaze Ivpb) 500 mcg in 100 mls @ 20 mls/hr IVPB TITR [facility] Last Admin: 06/25/20 01:26 Dose: 100 mcg/hr, 20 mls/hr Documented by: Propofol (Diprivan -) 1,000,000 mcg in 100 mls @ 2.618 mls/hr IVPB TITR [facility]; Protocol Last Admin: 06/25/20 01:26 Dose: 50 mcg/kg/min, 26.181 mls/hr Documented by: Vasopressin 40 units/ Sodium (Chloride) 100 mls @ 5 mls/hr IVPB ASDIR [facility]; Protocol Last Admin: 06/24/20 06:51 Dose: Not Given Documented by: Norepinephrine Bitartrate 16, (000 mcg/ Sodium Chloride) 500 mls @ 9.375 mls/hr IV TITR [facility]; Protocol Last Admin: 06/25/20 07:00 Dose: 7 mcg/min, 13.125 mls/hr Documented by: Sodium Chloride (Normal Saline -) 250 mls @ 3,000 mls/hr IV PRN PRN PRN Reason: Hypotension during Dialysis Stop: 06/21/20 16:33 Metronidazole (Flagyl 500mg Premixed Ivpb -) 500 mg in 100 mls @ 100 mls/hr IVPB Q8H-IV [facility] Last Admin: 06/25/20 09:12 Dose: 100 mls/hr Documented by: Cefepime HCl 2 gm/ Dextrose 100 mls @ 200 mls/hr IVPB BID [facility] Last Admin: 06/25/20 09:12 Dose: 200 mls/hr Documented by: Vancomycin HCl (Vancomycin (Pre-Docked)) 1,000 mg in 250 mls @ 200 mls/hr IVPB Q24H [facility]; Protocol Last Admin: 06/24/20 11:44 Dose: 200 mls/hr Documented by: Potassium Chloride (Potassium Chloride 10 Meq Premix Ivpb -) 10 meq in 100 mls @ 100 mls/hr IVPB Q60M [facility] Stop: 06/25/20 11:14 Last Admin: 06/25/20 10:12 Dose: 100 mls/hr Documented by: Pantoprazole Sodium (Protonix Iv) 40 mg IVPUSH DAILY [facility] Last Admin: 06/25/20 09:11 Dose: 40 mg Documented by: Polyethylene Glycol (Miralax (For Daily Use) -) 17 gm PO BID [facility] Last Admin: 06/25/20 09:11 Dose: 17 gm Documented by: Sevelamer Carbonate (Renvela Powder Packet -) 2.4 gm PO TIDCM [facility] Last Admin: 06/25/20 07:29 Dose: 2.4 gm Documented by: ASSESSMENT AND PLAN: Acute Hypoxic Respiratory Failure AML Tumor Lysis Syndrome Shock - ?Septic Acute Kidney Injury Hyperkalemia improved Anemia/Thrombocytopenia HTN Hyperlipidemia - continue antibiotics - monitor urine output, creatinine - monitor LDH, uric acid - titrate pressors to maintain MAP >65 - taper stress dose steroids - titrate FiO2 to keep SpO2 >90% - continue volume assist control - daily sedation vacations to assess mental status - enteral feeds - DVT/GI prophylaxis - continue ICU monitoring - continue discussions regarding goals of care critical care time spent in reviewing chart, evaluating patient and formulating plan 35 min
--- NOTE | 2020-06-25 10:53 | PN ---
Progress Note, Physician Chief Complaint: FEVER OVERNIGHT STILL INTUBATED AND SEDATED UNABLE TO DECREASE PRESSORS AND WEAN OFF VENT - Current Medication List Current Medications: Active Medications Allopurinol (Zyloprim -) 300 mg PO DAILY [facility] Last Admin: 06/25/20 09:12 Dose: 300 mg Documented by: Amino Acids (Prosource No Carb Liquid Pkt) 30 ml PO BID@0800,1730 [facility] Last Admin: 06/25/20 07:28 Dose: 30 ml Documented by: Artificial Tears (Artificial Tears) 1 drop OU DAILY [facility] Last Admin: 06/25/20 09:12 Dose: 1 drop Documented by: Atorvastatin Calcium (Lipitor -) 20 mg PO HS [facility] Last Admin: 06/24/20 21:33 Dose: 20 mg Documented by: Docusate Sodium (Colace Liquid -) 100 mg PO Q8H PRN PRN Reason: CONSTIPATION Hydrocortisone Sodium Succinate (Solu-Cortef -) 50 mg IVPUSH Q12H [facility] Last Admin: 06/25/20 01:25 Dose: 50 mg Documented by: Fentanyl (Sublimaze Ivpb) 500 mcg in 100 mls @ 20 mls/hr IVPB TITR [facility] Last Admin: 06/25/20 01:26 Dose: 100 mcg/hr, 20 mls/hr Documented by: Propofol (Diprivan -) 1,000,000 mcg in 100 mls @ 2.618 mls/hr IVPB TITR [facility]; Protocol Last Admin: 06/25/20 01:26 Dose: 50 mcg/kg/min, 26.181 mls/hr Documented by: Vasopressin 40 units/ Sodium (Chloride) 100 mls @ 5 mls/hr IVPB ASDIR [facility]; Protocol Last Admin: 06/24/20 06:51 Dose: Not Given Documented by: Norepinephrine Bitartrate 16, (000 mcg/ Sodium Chloride) 500 mls @ 9.375 mls/hr IV TITR [facility]; Protocol Last Admin: 06/25/20 07:00 Dose: 7 mcg/min, 13.125 mls/hr Documented by: Sodium Chloride (Normal Saline -) 250 mls @ 3,000 mls/hr IV PRN PRN PRN Reason: Hypotension during Dialysis Stop: 06/21/20 16:33 Metronidazole (Flagyl 500mg Premixed Ivpb -) 500 mg in 100 mls @ 100 mls/hr IVPB Q8H-IV [facility] Last Admin: 06/25/20 09:12 Dose: 100 mls/hr Documented by: Cefepime HCl 2 gm/ Dextrose 100 mls @ 200 mls/hr IVPB BID [facility] Last Admin: 06/25/20 09:12 Dose: 200 mls/hr Documented by: Vancomycin HCl (Vancomycin (Pre-Docked)) 1,000 mg in 250 mls @ 200 mls/hr IVPB Q24H [facility]; Protocol Last Admin: 06/24/20 11:44 Dose: 200 mls/hr Documented by: Potassium Chloride (Potassium Chloride 10 Meq Premix Ivpb -) 10 meq in 100 mls @ 100 mls/hr IVPB Q60M [facility] Stop: 06/25/20 11:14 Last Admin: 06/25/20 10:12 Dose: 100 mls/hr Documented by: Pantoprazole Sodium (Protonix Iv) 40 mg IVPUSH DAILY [facility] Last Admin: 06/25/20 09:11 Dose: 40 mg Documented by: Polyethylene Glycol (Miralax (For Daily Use) -) 17 gm PO BID [facility] Last Admin: 06/25/20 09:11 Dose: 17 gm Documented by: Sevelamer Carbonate (Renvela Powder Packet -) 2.4 gm PO TIDCM [facility] Last Admin: 06/25/20 07:29 Dose: 2.4 gm Documented by: - Objective Vital Signs: Vital Signs Temperature 101.8 F H 06/25/20 07:00 Pulse Rate 96 H 06/25/20 08:31 Respiratory Rate 25 H 06/25/20 09:00 Blood Pressure 100/50 L 06/25/20 07:00 O2 Sat by Pulse Oximetry (%) 96 06/25/20 09:00 Constitutional: Yes: Other Cardiovascular: Yes: Tachycardia Respiratory: Yes: Diminished, Mechanically Ventilated Gastrointestinal: Yes: Distention Genitourinary: Yes: García Present Musculoskeletal: Yes: Muscle Weakness Edema: Yes Integumentary: Yes: Venous Stasis Changes Labs: CBC, BMP 06/25/20 05:20 06/25/20 05:20 INR, PTT INR 1.33 (0.83-1.09) H 06/25/20 05:20 Fibrinogen 299.0 mg/dL (238-498) 06/25/20 05:20 Problem List - Problems (1) AML (acute myeloblastic leukemia) Code(s): C92.00 - ACUTE MYELOBLASTIC LEUKEMIA, NOT HAVING ACHIEVED REMISSION (2) CHF (congestive heart failure) Code(s): I50.9 - HEART FAILURE, UNSPECIFIED (3) Palpitations Code(s): R00.2 - PALPITATIONS (4) Shortness of breath Code(s): R06.02 - SHORTNESS OF BREATH (5) Acute renal failure Code(s): N17.9 - ACUTE KIDNEY FAILURE, UNSPECIFIED (6) Abdominal distention Code(s): R14.0 - ABDOMINAL DISTENSION (GASEOUS) (7) CML (chronic myelocytic leukemia) Code(s): C92.10 - CHRONIC MYELOID LEUK, BCR/ABL-POSITIVE, NOT ACHIEVE REMIS Assessment/Plan ON VENT SUPPORT D/W ICU TEAM WEANING PROTOCOL TOLERATED REDUCING SEDATION TO OFF THEN WEANING TODAY ON 40% FIO2 HD PER NEPHROLOGY ON ABX TRANSFUSE PRBC PER ONCOLOGY DVT 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
--- NOTE | 2020-06-25 11:10 | PN ---
Progress Note (short form) - Note Progress Note: remains intubated persistent fevers Vital Signs Period Temp Pulse Resp BP Sys/Carrillo Pulse Ox Last 24 Hr 99 F-101.8 F 78-111 21-25 100-115/43-52 95-100 cor-rrr lungs decreased bs at bases abd soft,nt protuberant ext +edema CBC, BMP 06/25/20 05:20 06/25/20 05:20 Microbiology 06/19/20 21:36 Blood - Peripheral Venous Blood Culture - Final NO GROWTH AFTER 5 DAYS INCUBATION 06/22/20 15:30 Blood - Peripheral Venous Blood Culture - Preliminary NO GROWTH OBTAINED AFTER 48 HOURS, INCUBATION TO CONTINUE FOR 3 DAYS. 06/22/20 15:30 Blood - Peripheral Venous Blood Culture - Preliminary NO GROWTH OBTAINED AFTER 48 HOURS, INCUBATION TO CONTINUE FOR 3 DAYS. 06/20/20 15:00 Blood - Peripheral Venous Blood Culture - Preliminary NO GROWTH OBTAINED AFTER 96 HOURS, INCUBATION TO CONTINUE FOR 1 DAYS. 06/20/20 11:50 Sputum - Endotrachea Suction/Ventilator Gram Stain - Final 06/20/20 11:50 Sputum - Endotrachea Suction/Ventilator Sputum Culture - Final NORMAL RESPIRATORY LYNDA 06/20/20 10:50 Urine - Urine - Catheterized Urine Culture - Final NO GROWTH OBTAINED 06/20/20 10:50 Urine For Antigen Detection Legionella Antigen - Final 06/20/20 10:50 Urine For Antigen Detection Streptococcus pneumoniae Antigen (M - Final 06/14/20 01:10 Blood - Peripheral Venous Blood Culture - Final NO GROWTH AFTER 5 DAYS INCUBATION 06/14/20 01:10 Blood - Peripheral Venous Blood Culture - Final NO GROWTH AFTER 5 DAYS INCUBATION 06/14/20 01:10 Urine - Urine Clean Catch Urine Culture - Final Staphylococcus Haemolyticus Group D Strep Or Entero Coccus a/p fevers- not neutropenic-hemodynamics improving -cxray with persistent effusions and atelectasis resp failure AML s/p chemo renal function improving tumorlysis syndrome anemia thrombocytopenia pen allergy continue cefepime/flagyl/vanco day #6 reculture will d/c oncology ?tumor fevers ?atelectasis Problem List - Problems (1) AML (acute myeloblastic leukemia) Code(s): C92.00 - ACUTE MYELOBLASTIC LEUKEMIA, NOT HAVING ACHIEVED REMISSION (2) Shortness of breath Code(s): R06.02 - SHORTNESS OF BREATH
[2020-06-25] MEDS ORDERED: PROPOFOL 1,000,000 MCG/100 ML VIAL ONE (11:23)
[2020-06-25] MEDS: VANCOMYCIN 1 GRAM (PRE-DOCKED) 1,000 MG/250 ML BAG IVPB SCH (12:24)
--- NOTE | 2020-06-25 12:32 | PN ---
Physical Exam: SUBJECTIVE: Patient seen and examined. Pt intuabated and sedated. OBJECTIVE: GENERAL: The patient is intubated and sedated . HEAD: Normal with no signs of trauma. ENT: Ears normal, nares patent, intubated NECK: Trachea midline, supple. LUNGS: bilateral rhonchi improved from 06/24 HEART: Regular rate and rhythm, S1, S2 without murmur, rub or gallop. ABDOMEN: distended no grimacing, splenomegaly EXTREMITIES: 2+ pulses bilateral lower ext 2+ edema. With RUE also has lynn a SKIN: Warm, dry, normal turgor, no rashes or lesions noted Vital Signs Period Temp Pulse Resp BP Sys/Carrillo Pulse Ox Last 24 Hr 99 F-101.8 F 78-111 21-25 100-114/43-51 94-100 Laboratory Results - last 24 hr 06/24/20 06/24/20 06/24/20 15:50 15:50 17:00 WBC 63.9 H* RBC 2.60 L Hgb 6.7 L* Hct 22.1 L MCV 85.3 MCH 25.8 MCHC 30.3 L RDW 20.0 H Plt Count 32 L* MPV 10.6 Absolute Neuts (auto) 59.8 H Neutrophils % 93.5 H D Neutrophils % (Manual) 63.7 Band Neutrophils % 5.9 Lymphocytes % 2.4 L D Lymphocytes % (Manual) 5.9 L D Monocytes % 3.8 Monocytes % (Manual) 6 Eosinophils % 0.1 D Eosinophils % (Manual) 1.0 Basophils % 0.2 Basophils % (Manual) 0.0 Myelocytes % (Man) 5 H D Promyelocytes % (Man) 1 D Blast Cells % (Manual) 8 H D Nucleated RBC % 0 Metamyelocytes 3 H D Hypochromia 2+ Platelet Estimate Decreased Polychromasia 1+ Poikilocytosis 2+ Anisocytosis 3+ Microcytosis 3+ Macrocytosis 0 Target Cells 1+ Tear Drop Cells 1+ Ovalocytes 1+ Stomatocytes 1+ PT with INR INR PTT (Actin FS) Fibrinogen 279.0 Anticoagulation Therapy Puncture Site Patient Temperature ABG pH ABG pCO2 ABG pO2 ABG HCO3 ABG O2 Sat (Measured) ABG O2 Content ABG Base Excess Rhett Test Patient On Oxygen O2 Delivery Device Oxygen Flow Rate Vent Mode Vent Rate Mechanical Rate PEEP Pressure Support Vent Sodium Potassium Chloride Carbon Dioxide Anion Gap BUN Creatinine Est GFR (CKD-EPI)AfAm Est GFR (CKD-EPI)NonAf Random Glucose Uric Acid Calcium Phosphorus Magnesium Total Bilirubin AST ALT Alkaline Phosphatase LD Total Total Protein Albumin Blood Type O POSITIVE Antibody Screen Negative Crossmatch See Detail 06/24/20 06/25/20 06/25/20 22:50 05:20 05:20 WBC 66.4 H* RBC 3.11 L Hgb 8.1 L Hct 26.1 L D MCV 83.9 MCH 26.1 MCHC 31.0 L RDW 19.2 H Plt Count 32 L* MPV 11.3 H Absolute Neuts (auto) 50.2 H Neutrophils % 75.6 Neutrophils % (Manual) 68.1 Band Neutrophils % 1.1 Lymphocytes % 3.1 L D Lymphocytes % (Manual) 5.3 L Monocytes % 20.8 H D Monocytes % (Manual) 10 Eosinophils % 0.3 D Eosinophils % (Manual) 0.0 D Basophils % 0.2 Basophils % (Manual) 0.0 Myelocytes % (Man) 10 H D Promyelocytes % (Man) 0 D Blast Cells % (Manual) 0 D Nucleated RBC % 0 Metamyelocytes 2 D Hypochromia 0 Platelet Estimate Decreased Polychromasia 1+ Poikilocytosis 0 Anisocytosis 1+ Microcytosis 1+ Macrocytosis 0 Target Cells Tear Drop Cells Ovalocytes Stomatocytes PT with INR INR PTT (Actin FS) Fibrinogen Anticoagulation Therapy Puncture Site Patient Temperature ABG pH ABG pCO2 ABG pO2 ABG HCO3 ABG O2 Sat (Measured) ABG O2 Content ABG Base Excess Rhett Test Patient On Oxygen O2 Delivery Device Oxygen Flow Rate Vent Mode Vent Rate Mechanical Rate PEEP Pressure Support Vent Sodium 141 140 Potassium 3.1 L 3.4 L Chloride 107 106 Carbon Dioxide 27 27 Anion Gap 8 7 L BUN 57.4 H 56.4 H Creatinine 1.2 1.3 Est GFR (CKD-EPI)AfAm 70.09 63.62 Est GFR (CKD-EPI)NonAf 60.47 54.90 Random Glucose 128 H 108 H Uric Acid 5.0 Calcium 7.8 L 7.6 L Phosphorus 2.5 Magnesium 2.0 Total Bilirubin 0.8 AST 26 ALT 7 L Alkaline Phosphatase 130 H LD Total 343 H Total Protein 5.7 L Albumin 2.3 L Blood Type Antibody Screen Crossmatch 06/25/20 06/25/20 06/25/20 05:20 05:20 05:40 WBC RBC Hgb Hct MCV MCH MCHC RDW Plt Count MPV Absolute Neuts (auto) Neutrophils % Neutrophils % (Manual) Band Neutrophils % Lymphocytes % Lymphocytes % (Manual) Monocytes % Monocytes % (Manual) Eosinophils % Eosinophils % (Manual) Basophils % Basophils % (Manual) Myelocytes % (Man) Promyelocytes % (Man) Blast Cells % (Manual) Nucleated RBC % Metamyelocytes Hypochromia Platelet Estimate Polychromasia Poikilocytosis Anisocytosis Microcytosis Macrocytosis Target Cells Tear Drop Cells Ovalocytes Stomatocytes PT with INR 15.70 H INR 1.33 H PTT (Actin FS) 27.4 Fibrinogen 299.0 Anticoagulation Therapy No Result Required. Puncture Site Left radial Patient Temperature No Result Required. ABG pH 7.384 ABG pCO2 37.10 ABG pO2 72.4 L ABG HCO3 21.7 L ABG O2 Sat (Measured) 94.5 L ABG O2 Content No Result Required. ABG Base Excess -3.0 L Rhett Test Positive Patient On Oxygen Yes O2 Delivery Device Vent Oxygen Flow Rate 50% Vent Mode A/c Vent Rate 24 Mechanical Rate Yes PEEP 6.0 Pressure Support Vent 480 Sodium Potassium Chloride Carbon Dioxide Anion Gap BUN Creatinine Est GFR (CKD-EPI)AfAm Est GFR (CKD-EPI)NonAf Random Glucose Uric Acid Calcium Phosphorus Magnesium Total Bilirubin AST ALT Alkaline Phosphatase LD Total Total Protein Albumin Blood Type Antibody Screen Crossmatch Active Medications Generic Name Dose Route Start Last Admin Trade Name Freq PRN Reason Stop Dose Admin Allopurinol 300 mg 06/20/20 10:00 06/25/20 09:12 Zyloprim - PO 300 mg DAILY ERMELINDA Administration Amino Acids 30 ml 06/22/20 17:30 06/25/20 07:28 Prosource No Carb Liquid Pkt PO 30 ml BID@0800,1730 ERMELINDA Administration Artificial Tears 1 drop 06/20/20 10:00 06/25/20 09:12 Artificial Tears OU 1 drop DAILY ERMELINDA Administration Atorvastatin Calcium 20 mg 06/19/20 22:00 06/24/20 21:33 Lipitor - PO 20 mg HS ERMELINDA Administration Docusate Sodium 100 mg 06/22/20 08:55 Colace Liquid - PO Q8H PRN CONSTIPATION Furosemide 40 mg 06/25/20 12:45 Lasix Injection - IVPUSH 06/25/20 12:46 ONCE ONE Hydrocortisone Sodium Succinate 50 mg 06/24/20 13:15 06/25/20 01:25 Solu-Cortef - IVPUSH 50 mg Q12H ERMELINDA Administration Fentanyl 500 mcg in 100 mls @ 20 mls/hr 06/19/20 23:45 06/25/20 01:26 Sublimaze Ivpb IVPB 100 mcg/hr TITR ERMELINDA 20 mls/hr Administration 100 MCG/HR Propofol 1,000,000 mcg in 100 mls @ 2.618 mls/hr 06/20/20 00:30 06/25/20 01:26 Diprivan - IVPB 50 mcg/kg/min TITR ERMELINDA 26.181 mls/hr Administration Protocol 5 MCG/KG/MIN Vasopressin 40 units/ Sodium 100 mls @ 5 mls/hr 06/20/20 06:30 06/24/20 06:51 Chloride IVPB Not Given ASDIR ERMELINDA Protocol 2 UNITS/HR Norepinephrine Bitartrate 16, 500 mls @ 9.375 mls/hr 06/20/20 08:00 06/25/20 07:00 000 mcg/ Sodium Chloride IV 7 mcg/min TITR ERMELINDA 13.125 mls/hr Administration Protocol 5 MCG/MIN Sodium Chloride 250 mls @ 3,000 mls/hr 06/20/20 16:33 Normal Saline - IV 06/21/20 16:33 PRN PRN Hypotension during Dialysis Metronidazole 500 mg in 100 mls @ 100 mls/hr 06/21/20 18:00 06/25/20 09:12 Flagyl 500mg Premixed Ivpb - IVPB 100 mls/hr Q8H-IV ERMELINDA Administration Cefepime HCl 2 gm/ Dextrose 100 mls @ 200 mls/hr 06/22/20 22:00 06/25/20 09:12 IVPB 200 mls/hr BID ERMELINDA Administration Vancomycin HCl 1,000 mg in 250 mls @ 200 mls/hr 06/23/20 12:45 06/25/20 12:24 Vancomycin (Pre-Docked) IVPB 200 mls/hr Q24H ERMELINDA Administration Protocol Pantoprazole Sodium 40 mg 06/21/20 10:00 06/25/20 09:11 Protonix Iv IVPUSH 40 mg DAILY ERMELINDA Administration Polyethylene Glycol 17 gm 06/19/20 22:00 06/25/20 09:11 Miralax (For Daily Use) - PO 17 gm BID ERMELINDA Administration Sevelamer Carbonate 2.4 gm 06/21/20 17:30 06/25/20 11:28 Renvela Powder Packet - PO 2.4 gm TIDCM ERMELINDA Administration ASSESSMENT/PLAN: 70 yo male pmh of htn, hld, 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 Pt intubatedd on 06/19 for hypoxic resp failure Neuro -Pt sedated on Fentanyl, Midazolam and propofol - CAT scan when stable Cardio: - echo normal of 06/15/20 - pt not tachycardic at time edema may be from hypoalbuminemia may stop lasix according to Cardiology - edema may be fixed with transfusion due to third spacing - Pt on levo 5mcg due to hypotension pt will monitor for MAP<65 Resp: - Pt vented on RR 24, TV: 480; PEEP 6; FiO2 50% - monitor LDH, uric acid - titrate pressors to maintain MAP >65 - taper stress dose steroids to q12hr - titrate FiO2 to keep SpO2 >90% - continue volume assist control Renal: - appreciate nephro recommendation renal function stable -d/c shiley cath on 06/23 - replace potassium monitor K and phos - Pt was given 40 of lasix after dose of platelets Heme Onc: - Appreciate heme onc consult on CML to AML. Pt has tumor lysis syndrome from 06/19 rasburicase causing inc K and phos - will follow Uric acid and LDH due to tumor lysis syndrome - pt on 300 mg of allopurinorl -Renvela for elevated phos Renvela for elevated phos -blood cultures negative -Anemia - Transfuse to keep Hgb < 7 -Transfuse for bleeding or platelets < 30,000 as patient febrile and platelets dysfunctional- Pt was given on pack of platelets (06/25) -monitor CBC, CMP, LDH, uric acid daily, and DIC labs as well - PT/PTT/fibrinogen GI - Pt feeds restarted. On Neppro ID -ON cefepime 2g BID (started 06/22) flaggyl 500 mg q8hrs (06/21) and vanco 1 gm QD Day 6 - will get vancomycin levels random (06/25). Repeat for fourth dose 06/27 - Tylenol prn 1000 every 8 hrs - Blood cultures recultured FIN: - Fluids halted pt started on feed, hydration, monitor lytes - K 3.4 repleted will check labs in the AM Prophylaxis - heparin 5000 TID - Protonix for PUD Visit type - Emergency Visit Emergency Visit: Yes ED Registration Date: 06/14/20 Care time: The patient presented to the Emergency Department on the above date and was hospitalized for further evaluation of their emergent condition. - New Patient This patient is new to me today: No - Critical Care Critical Care patient: Yes Total Critical Care Time (in minutes): 36 Critical Care Statement: The care of this patient involved high complexity decision making to prevent further life threatening deterioration of the patient's condition and/or to evaluate & treat vital organ system(s) failure or risk of failure. - Medication Review Med list reviewed for High Risk Meds patients 65 and older: Yes ATTENDING PHYSICIAN STATEMENT I saw and evaluated the patient. I reviewed the resident's note and discussed the case with the resident. I agree with the resident's findings and plan as documented. SUBJECTIVE: OBJECTIVE: ASSESSMENT AND PLAN:
[2020-06-25] MEDS ORDERED: FUROSEMIDE 40 MG/4 ML INJECTABLE VIAL IVPUSH ONE (12:45)
[2020-06-25] MEDS ORDERED: fentaNYL CITRATE 250 MCG/5 ML VIAL ONE (14:49)
--- NOTE | 2020-06-25 16:00 | PN ---
Physical Exam: SUBJECTIVE: Patient seen and examined. STill intubated, sedated. On levophed. Still with Low grade fevers overnight. OBJECTIVE: Vital Signs Temperature 100.1 F H 06/25/20 11:00 Pulse Rate 93 H 06/25/20 15:00 Respiratory Rate 24 H 06/25/20 15:50 Blood Pressure 101/49 L 06/25/20 15:00 O2 Sat by Pulse Oximetry (%) 99 06/25/20 15:50 GENERAL: The patient is intubated, sedated EYES: PERRLA, conjunctiva clear. ENT: dry mucous membranes, ET tube in place NECK: supple LUNGS: vented breath sounds b/l, decreased breath sounds bilateral bases HEART: Regular rate and rhythm, S1, S2 ABDOMEN: Soft, does not grimace on palpation, hypoactive bowel sounds EXTREMITIES: 2+ pulses, warm, well-perfused, +2 b/l pitting edema SKIN: Warm, dry, normal turgor Laboratory Results - last 24 hr 06/24/20 06/24/20 06/24/20 15:50 15:50 17:00 WBC 63.9 H* RBC 2.60 L Hgb 6.7 L* Hct 22.1 L MCV 85.3 MCH 25.8 MCHC 30.3 L RDW 20.0 H Plt Count 32 L* MPV 10.6 Absolute Neuts (auto) 59.8 H Neutrophils % 93.5 H D Neutrophils % (Manual) 63.7 Band Neutrophils % 5.9 Lymphocytes % 2.4 L D Lymphocytes % (Manual) 5.9 L D Monocytes % 3.8 Monocytes % (Manual) 6 Eosinophils % 0.1 D Eosinophils % (Manual) 1.0 Basophils % 0.2 Basophils % (Manual) 0.0 Myelocytes % (Man) 5 H D Promyelocytes % (Man) 1 D Blast Cells % (Manual) 8 H D Nucleated RBC % 0 Metamyelocytes 3 H D Hypochromia 2+ Platelet Estimate Decreased Polychromasia 1+ Poikilocytosis 2+ Anisocytosis 3+ Microcytosis 3+ Macrocytosis 0 Target Cells 1+ Tear Drop Cells 1+ Ovalocytes 1+ Stomatocytes 1+ PT with INR INR PTT (Actin FS) Fibrinogen 279.0 Anticoagulation Therapy Puncture Site Patient Temperature ABG pH ABG pCO2 ABG pO2 ABG HCO3 ABG O2 Sat (Measured) ABG O2 Content ABG Base Excess Rhett Test Patient On Oxygen O2 Delivery Device Oxygen Flow Rate Vent Mode Vent Rate Mechanical Rate PEEP Pressure Support Vent Sodium Potassium Chloride Carbon Dioxide Anion Gap BUN Creatinine Est GFR (CKD-EPI)AfAm Est GFR (CKD-EPI)NonAf Random Glucose Uric Acid Calcium Phosphorus Magnesium Total Bilirubin AST ALT Alkaline Phosphatase LD Total Total Protein Albumin Blood Type O POSITIVE Antibody Screen Negative Crossmatch See Detail 06/24/20 06/25/20 06/25/20 22:50 05:20 05:20 WBC 66.4 H* RBC 3.11 L Hgb 8.1 L Hct 26.1 L D MCV 83.9 MCH 26.1 MCHC 31.0 L RDW 19.2 H Plt Count 32 L* MPV 11.3 H Absolute Neuts (auto) 50.2 H Neutrophils % 75.6 Neutrophils % (Manual) 68.1 Band Neutrophils % 1.1 Lymphocytes % 3.1 L D Lymphocytes % (Manual) 5.3 L Monocytes % 20.8 H D Monocytes % (Manual) 10 Eosinophils % 0.3 D Eosinophils % (Manual) 0.0 D Basophils % 0.2 Basophils % (Manual) 0.0 Myelocytes % (Man) 10 H D Promyelocytes % (Man) 0 D Blast Cells % (Manual) 0 D Nucleated RBC % 0 Metamyelocytes 2 D Hypochromia 0 Platelet Estimate Decreased Polychromasia 1+ Poikilocytosis 0 Anisocytosis 1+ Microcytosis 1+ Macrocytosis 0 Target Cells Tear Drop Cells Ovalocytes Stomatocytes PT with INR INR PTT (Actin FS) Fibrinogen Anticoagulation Therapy Puncture Site Patient Temperature ABG pH ABG pCO2 ABG pO2 ABG HCO3 ABG O2 Sat (Measured) ABG O2 Content ABG Base Excess Rhett Test Patient On Oxygen O2 Delivery Device Oxygen Flow Rate Vent Mode Vent Rate Mechanical Rate PEEP Pressure Support Vent Sodium 141 140 Potassium 3.1 L 3.4 L Chloride 107 106 Carbon Dioxide 27 27 Anion Gap 8 7 L BUN 57.4 H 56.4 H Creatinine 1.2 1.3 Est GFR (CKD-EPI)AfAm 70.09 63.62 Est GFR (CKD-EPI)NonAf 60.47 54.90 Random Glucose 128 H 108 H Uric Acid 5.0 Calcium 7.8 L 7.6 L Phosphorus 2.5 Magnesium 2.0 Total Bilirubin 0.8 AST 26 ALT 7 L Alkaline Phosphatase 130 H LD Total 343 H Total Protein 5.7 L Albumin 2.3 L Blood Type Antibody Screen Crossmatch 06/25/20 06/25/20 06/25/20 05:20 05:20 05:40 WBC RBC Hgb Hct MCV MCH MCHC RDW Plt Count MPV Absolute Neuts (auto) Neutrophils % Neutrophils % (Manual) Band Neutrophils % Lymphocytes % Lymphocytes % (Manual) Monocytes % Monocytes % (Manual) Eosinophils % Eosinophils % (Manual) Basophils % Basophils % (Manual) Myelocytes % (Man) Promyelocytes % (Man) Blast Cells % (Manual) Nucleated RBC % Metamyelocytes Hypochromia Platelet Estimate Polychromasia Poikilocytosis Anisocytosis Microcytosis Macrocytosis Target Cells Tear Drop Cells Ovalocytes Stomatocytes PT with INR 15.70 H INR 1.33 H PTT (Actin FS) 27.4 Fibrinogen 299.0 Anticoagulation Therapy No Result Required. Puncture Site Left radial Patient Temperature No Result Required. ABG pH 7.384 ABG pCO2 37.10 ABG pO2 72.4 L ABG HCO3 21.7 L ABG O2 Sat (Measured) 94.5 L ABG O2 Content No Result Required. ABG Base Excess -3.0 L Rhett Test Positive Patient On Oxygen Yes O2 Delivery Device Vent Oxygen Flow Rate 50% Vent Mode A/c Vent Rate 24 Mechanical Rate Yes PEEP 6.0 Pressure Support Vent 480 Sodium Potassium Chloride Carbon Dioxide Anion Gap BUN Creatinine Est GFR (CKD-EPI)AfAm Est GFR (CKD-EPI)NonAf Random Glucose Uric Acid Calcium Phosphorus Magnesium Total Bilirubin AST ALT Alkaline Phosphatase LD Total Total Protein Albumin Blood Type Antibody Screen Crossmatch Active Medications Generic Name Dose Route Start Last Admin Trade Name Freq PRN Reason Stop Dose Admin Allopurinol 300 mg 06/20/20 10:00 06/25/20 09:12 Zyloprim - PO 300 mg DAILY ERMELINDA Administration Amino Acids 30 ml 06/22/20 17:30 06/25/20 07:28 Prosource No Carb Liquid Pkt PO 30 ml BID@0800,1730 ERMELINDA Administration Artificial Tears 1 drop 06/20/20 10:00 06/25/20 09:12 Artificial Tears OU 1 drop DAILY ERMELINDA Administration Atorvastatin Calcium 20 mg 06/19/20 22:00 06/24/20 21:33 Lipitor - PO 20 mg HS ERMELINDA Administration Docusate Sodium 100 mg 06/22/20 08:55 Colace Liquid - PO Q8H PRN CONSTIPATION Hydrocortisone Sodium Succinate 50 mg 06/24/20 13:15 06/25/20 12:35 Solu-Cortef - IVPUSH 50 mg Q12H ERMELINDA Administration Fentanyl 500 mcg in 100 mls @ 20 mls/hr 06/19/20 23:45 06/25/20 01:26 Sublimaze Ivpb IVPB 100 mcg/hr TITR ERMELINDA 20 mls/hr Administration 100 MCG/HR Propofol 1,000,000 mcg in 100 mls @ 2.618 mls/hr 06/20/20 00:30 06/25/20 01:26 Diprivan - IVPB 50 mcg/kg/min TITR ERMELINDA 26.181 mls/hr Administration Protocol 5 MCG/KG/MIN Vasopressin 40 units/ Sodium 100 mls @ 5 mls/hr 06/20/20 06:30 06/24/20 06:51 Chloride IVPB Not Given ASDIR ERMELINDA Protocol 2 UNITS/HR Norepinephrine Bitartrate 16, 500 mls @ 9.375 mls/hr 06/20/20 08:00 06/25/20 07:00 000 mcg/ Sodium Chloride IV 7 mcg/min TITR ERMELINDA 13.125 mls/hr Administration Protocol 5 MCG/MIN Sodium Chloride 250 mls @ 3,000 mls/hr 06/20/20 16:33 Normal Saline - IV 06/21/20 16:33 PRN PRN Hypotension during Dialysis Metronidazole 500 mg in 100 mls @ 100 mls/hr 06/21/20 18:00 06/25/20 09:12 Flagyl 500mg Premixed Ivpb - IVPB 100 mls/hr Q8H-IV ERMELINDA Administration Cefepime HCl 2 gm/ Dextrose 100 mls @ 200 mls/hr 06/22/20 22:00 06/25/20 09:12 IVPB 200 mls/hr BID ERMELINDA Administration Vancomycin HCl 1,000 mg in 250 mls @ 200 mls/hr 06/23/20 12:45 06/25/20 12:24 Vancomycin (Pre-Docked) IVPB 200 mls/hr Q24H ERMELINDA Administration Protocol Pantoprazole Sodium 40 mg 06/21/20 10:00 06/25/20 09:11 Protonix Iv IVPUSH 40 mg DAILY ERMELINDA Administration Polyethylene Glycol 17 gm 06/19/20 22:00 06/25/20 09:11 Miralax (For Daily Use) - PO 17 gm BID ERMELINDA Administration Sevelamer Carbonate 2.4 gm 06/21/20 17:30 06/25/20 11:28 Renvela Powder Packet - PO 2.4 gm TIDCM ERMELINDA Administration ASSESSMENT/PLAN: Patient is a 70 year old male with past medical history of HTN, HLD, CKD, 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 We have been consulted for further evaluation of CMML. 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 Splenomegaly. -WBC 198k, ANC [id number] on admission -Rasburicase 6mg x1 on admission, then Hydrea 1000mg bid started 06/14 -G6PD level not deficient -Allopurinol dose to 300mg daily -Completed 5 doses of Decitabine 06/14 - 06/19 -CT AP 06/18 - Right > Left pleural effusion, marked splenomegaly with perisplenic fluid collection, sigmoid diverticulosis -patient started having fevers with Tmax of 104.7, with rising K and Phos 06/19 -Rasburicase 2nd dose given 06/19, Hydrea held due to ongoing tumor lysis -Intubated 06/19 for hypoxic respiratory failure, Dialysis 06/20 -Renvela for elevated phos -blood cultures negative -continue Cefepime/flagyl/vancomycin -Anemia - Transfuse to keep Hgb < 7 -Transfuse for bleeding or platelets < 20,000 as patient febrile and platelets dysfunctional -monitor CBC, CMP, LDH, uric acid daily, and DIC labs as well - PT/PTT/fibrinogen -pulm consulted. recs appreciated. -cardio consulted. recs appreciated. -ID consulted. recs appreciated. -nephro consulted. recs appreciated. Visit type - Emergency Visit Emergency Visit: Yes ED Registration Date: 06/14/20 Care time: The patient presented to the Emergency Department on the above date and was hospitalized for further evaluation of their emergent condition. - New Patient This patient is new to me today: No - Critical Care Critical Care patient: Yes Total Critical Care Time (in minutes): 35 Critical Care Statement: The care of this patient involved high complexity decision making to prevent further life threatening deterioration of the patien t's condition and/or to evaluate & treat vital organ system(s) failure or risk of failure. - Medication Review Med list reviewed for High Risk Meds patients 65 and older: Yes ATTENDING PHYSICIAN STATEMENT I saw and evaluated the patient. I reviewed the resident's note and discussed the case with the resident. I agree with the resident's findings and plan as documented. SUBJECTIVE: OBJECTIVE: ASSESSMENT AND PLAN:
--- NOTE | 2020-06-25 16:13 | PN ---
Progress Note, Physician History of Present Illness: Pt seen and examined at bedside. He remains in the ICU. He remains intubated. - Current Medication List Current Medications: Active Medications Allopurinol (Zyloprim -) 300 mg PO DAILY [facility] Last Admin: 06/25/20 09:12 Dose: 300 mg Documented by: Amino Acids (Prosource No Carb Liquid Pkt) 30 ml PO BID@0800,1730 [facility] Last Admin: 06/25/20 07:28 Dose: 30 ml Documented by: Artificial Tears (Artificial Tears) 1 drop OU DAILY [facility] Last Admin: 06/25/20 09:12 Dose: 1 drop Documented by: Atorvastatin Calcium (Lipitor -) 20 mg PO HS [facility] Last Admin: 06/24/20 21:33 Dose: 20 mg Documented by: Docusate Sodium (Colace Liquid -) 100 mg PO Q8H PRN PRN Reason: CONSTIPATION Hydrocortisone Sodium Succinate (Solu-Cortef -) 50 mg IVPUSH Q12H [facility] Last Admin: 06/25/20 12:35 Dose: 50 mg Documented by: Fentanyl (Sublimaze Ivpb) 500 mcg in 100 mls @ 20 mls/hr IVPB TITR [facility] Last Admin: 06/25/20 01:26 Dose: 100 mcg/hr, 20 mls/hr Documented by: Propofol (Diprivan -) 1,000,000 mcg in 100 mls @ 2.618 mls/hr IVPB TITR [facility]; Protocol Last Admin: 06/25/20 01:26 Dose: 50 mcg/kg/min, 26.181 mls/hr Documented by: Vasopressin 40 units/ Sodium (Chloride) 100 mls @ 5 mls/hr IVPB ASDIR [facility]; Protocol Last Admin: 06/24/20 06:51 Dose: Not Given Documented by: Norepinephrine Bitartrate 16, (000 mcg/ Sodium Chloride) 500 mls @ 9.375 mls/hr IV TITR [facility]; Protocol Last Admin: 06/25/20 07:00 Dose: 7 mcg/min, 13.125 mls/hr Documented by: Sodium Chloride (Normal Saline -) 250 mls @ 3,000 mls/hr IV PRN PRN PRN Reason: Hypotension during Dialysis Stop: 06/21/20 16:33 Metronidazole (Flagyl 500mg Premixed Ivpb -) 500 mg in 100 mls @ 100 mls/hr IVPB Q8H-IV [facility] Last Admin: 06/25/20 09:12 Dose: 100 mls/hr Documented by: Cefepime HCl 2 gm/ Dextrose 100 mls @ 200 mls/hr IVPB BID [facility] Last Admin: 06/25/20 09:12 Dose: 200 mls/hr Documented by: Vancomycin HCl (Vancomycin (Pre-Docked)) 1,000 mg in 250 mls @ 200 mls/hr IVPB Q24H [facility]; Protocol Last Admin: 06/25/20 12:24 Dose: 200 mls/hr Documented by: Pantoprazole Sodium (Protonix Iv) 40 mg IVPUSH DAILY [facility] Last Admin: 06/25/20 09:11 Dose: 40 mg Documented by: Polyethylene Glycol (Miralax (For Daily Use) -) 17 gm PO BID [facility] Last Admin: 06/25/20 09:11 Dose: 17 gm Documented by: Sevelamer Carbonate (Renvela Powder Packet -) 2.4 gm PO TIDCM [facility] Last Admin: 06/25/20 11:28 Dose: 2.4 gm Documented by: - Objective Vital Signs: Vital Signs Temperature 100.1 F H 06/25/20 11:00 Pulse Rate 93 H 06/25/20 15:00 Respiratory Rate 24 H 06/25/20 15:50 Blood Pressure 101/49 L 06/25/20 15:00 O2 Sat by Pulse Oximetry (%) 99 06/25/20 15:50 Eyes: Yes: Conjunctiva Clear HENT: Yes: Atraumatic Neck: Yes: Supple Cardiovascular: Yes: S1, S2 Respiratory: Yes: Mechanically Ventilated Gastrointestinal: Yes: Normal Bowel Sounds, Soft Genitourinary: Yes: García Present Musculoskeletal: Yes: Muscle Weakness Edema: Yes Edema: LUE: 1+, RUE: 1+, LLE: 1+, RLE: 1+ Neurological: Yes: Lethargy Labs: CBC, BMP 06/25/20 05:20 06/25/20 05:20 INR, PTT INR 1.33 (0.83-1.09) H 06/25/20 05:20 Fibrinogen 299.0 mg/dL (238-498) 06/25/20 05:20 Problem List - Problems (1) AML (acute myeloblastic leukemia) Code(s): C92.00 - ACUTE MYELOBLASTIC LEUKEMIA, NOT HAVING ACHIEVED REMISSION (2) CHF (congestive heart failure) Code(s): I50.9 - HEART FAILURE, UNSPECIFIED (3) CML (chronic myelocytic leukemia) Code(s): C92.10 - CHRONIC MYELOID LEUK, BCR/ABL-POSITIVE, NOT ACHIEVE REMIS Assessment/Plan Current Medications Generic Name Dose Route Start Last Admin Trade Name Freq PRN Reason Stop Dose Admin Allopurinol 300 mg 06/20/20 10:00 06/25/20 09:12 Zyloprim - PO 300 mg DAILY [facility] Administration Amino Acids 30 ml 06/22/20 17:30 06/25/20 07:28 Prosource No Carb Liquid Pkt PO 30 ml BID@0800,1730 [facility] Administration Artificial Tears 1 drop 06/20/20 10:00 06/25/20 09:12 Artificial Tears OU 1 drop DAILY [facility] Administration Atorvastatin Calcium 20 mg 06/19/20 22:00 06/24/20 21:33 Lipitor - PO 20 mg HS [facility] Administration Docusate Sodium 100 mg 06/22/20 08:55 Colace Liquid - PO Q8H PRN CONSTIPATION Hydrocortisone Sodium Succinate 50 mg 06/24/20 13:15 06/25/20 12:35 Solu-Cortef - IVPUSH 50 mg Q12H [facility] Administration Fentanyl 500 mcg in 100 mls @ 20 mls/hr 06/19/20 23:45 06/25/20 01:26 Sublimaze Ivpb IVPB 100 mcg/hr TITR [facility] 20 mls/hr Administration 100 MCG/HR Propofol 1,000,000 mcg in 100 mls @ 2.618 mls/hr 06/20/20 00:30 06/25/20 01:26 Diprivan - IVPB 50 mcg/kg/min TITR [facility] 26.181 mls/hr Administration Protocol 5 MCG/KG/MIN Vasopressin 40 units/ Sodium 100 mls @ 5 mls/hr 06/20/20 06:30 06/24/20 06:51 Chloride IVPB Not Given ASDIR [facility] Protocol 2 UNITS/HR Norepinephrine Bitartrate 16, 500 mls @ 9.375 mls/hr 06/20/20 08:00 06/25/20 07:00 000 mcg/ Sodium Chloride IV 7 mcg/min TITR [facility] 13.125 mls/hr Administration Protocol 5 MCG/MIN Sodium Chloride 250 mls @ 3,000 mls/hr 06/20/20 16:33 Normal Saline - IV 06/21/20 16:33 PRN PRN Hypotension during Dialysis Metronidazole 500 mg in 100 mls @ 100 mls/hr 06/21/20 18:00 06/25/20 09:12 Flagyl 500mg Premixed Ivpb - IVPB 100 mls/hr Q8H-IV [facility] Administration Cefepime HCl 2 gm/ Dextrose 100 mls @ 200 mls/hr 06/22/20 22:00 06/25/20 09:12 IVPB 200 mls/hr BID [facility] Administration Vancomycin HCl 1,000 mg in 250 mls @ 200 mls/hr 06/23/20 12:45 06/25/20 12:24 Vancomycin (Pre-Docked) IVPB 200 mls/hr Q24H [facility] Administration Protocol Pantoprazole Sodium 40 mg 06/21/20 10:00 06/25/20 09:11 Protonix Iv IVPUSH 40 mg DAILY [facility] Administration Polyethylene Glycol 17 gm 06/19/20 22:00 06/25/20 09:11 Miralax (For Daily Use) - PO 17 gm BID [facility] Administration Sevelamer Carbonate 2.4 gm 06/21/20 17:30 06/25/20 11:28 Renvela Powder Packet - PO 2.4 gm TIDCM [facility] Administration Impression 1. CKD 2. CML 3. AML 4. pleural effusions 5. htn 6. tumor lysis 7. charisse 8. hyperkalemia 9. acuter resp failure Plan - vent support - monitor lytes - monitor output - monitor phos levels - oncology follow up - cont pressors to map 65 - oncology follow up
--- NOTE | 2020-06-25 17:07 | PN ---
Teaching Attending Note Name of Resident: Alee Nelson ATTENDING PHYSICIAN STATEMENT I saw and evaluated the patient. I reviewed the resident's note and discussed the case with the resident. I agree with the resident's findings and plan as documented. 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 WBC 66k today, Hb 8.1, plts 32 most likely due to chemotherapy. Transfuse for Hb <7, plt count less than 20k (as there is a concern for sepsis) unless actively bleeding.
[2020-06-25] MEDS: ATORVASTATIN CA 20 MG TABLET (FP) PO SCH (21:05)
[2020-06-26] MEDS: HYDROCORTISONE SOD SUCCINATE 100 MG/2 ML VIAL IVPUSH SCH ×2 (01:13→13:23)
[2020-06-26] MEDS: FENTANYL IVPB 500 MCG/100 ML BAG IVPB SCH ×5 (01:14→17:23)
[2020-06-26 06:13] LABS: ARTERIAL BLD GAS O2 SATURATION 94.4 mmHg (95-98); ARTERIAL BLOOD GAS BASE EXCESS -2.9 mmol/L (-2-2); ARTERIAL BLOOD GAS PO2 73.1 mmHg (80-100); ARTERIAL BLOOD GAS pH 7.369 (7.350-7.450)
[2020-06-26] MEDS: PROPOFOL 1,000,000 MCG/100 ML VIAL IVPB SCH ×4 (06:13→18:08)
[2020-06-26 06:49] LABS: ALLENS TEST POSITIVE
[2020-06-26 06:50] LABS: VENT MODE A/C; VENT RATE 24
[2020-06-26 07:58] LABS: INR 1.35 (0.83-1.09)
[2020-06-26 08:15] LABS: ALBUMIN 2.2 g/dl (3.4-5.0); BASO % 0.3 % (0-2.0); BILIRUBIN,TOTAL 0.9 mg/dL (0.2-1); BLOOD UREA NITROGEN 63.6 mg/dL (7-18); CALCIUM 7.8 mg/dL (8.5-10.1); CREATININE 1.3 mg/dL (0.55-1.3); EOS % 0.1 % (0-4.5); HEMATOCRIT 25.2 % (35.4-49); HEMOGLOBIN 7.9 GM/dL (11.7-16.9); LYMPH % 5.4 % (8-40); MCH 26.7 pg (25.7-33.7); MCHC 31.1 g/dl (32.0-35.9); MEAN CELL VOLUME 85.7 fl (80-96); MEAN PLT VOLUME 9.7 fl (7.5-11.1); MONO % 24.4 % (3.8-10.2); NEUT % 69.8 % (42.8-82.8); POTASSIUM 3.2 mmol/L (3.5-5.1); RBC 2.95 M/mm3 (4.00-5.60); TOT PROT 5.6 g/dl (6.4-8.2); URIC ACID 4.9 mg/dL (2.6-7.2)
[2020-06-26 08:59] LABS: WHITE BLOOD COUNT 71.2 K/mm3 (4.0-10.0)
[2020-06-26] MEDS: AMINO ACIDS/PROTEIN HYDROLYS 30 ML LIQUID.PKT PO SCH ×2 (09:00→17:23)
[2020-06-26 09:04] LABS: PLATELET COUNT 26 K/MM3 (134-434)
[2020-06-26 09:11] LABS: MAGNESIUM 2.1 mg/dL (1.8-2.4); PHOSPHOROUS 2.8 mg/dL (2.5-4.9)
[2020-06-26] MEDS: PANTOPRAZOLE SODIUM 40 MG VIAL IVPUSH SCH (09:17)
[2020-06-26] MEDS: POLYETHYLENE GLYCOL 3350 119 GM BTL PO SCH ×2 (09:17→23:36)
[2020-06-26] MEDS: SEVELAMER CARBONATE 2.4 GM POWDER PACKET PO SCH ×2 (09:17→10:29)
[2020-06-26] MEDS: ARTIFICIAL TEARS (POLYVINYL ALCOHOL) OPTH DROPS OU SCH (09:17)
[2020-06-26] MEDS: ALLOPURINOL 300 MG TABLET (FP) PO SCH (09:18)
[2020-06-26] MEDS ORDERED: PT OWN MED DRAWER 7, Y5N ONE ×2 (09:43→20:22)
[2020-06-26] MEDS: KCL 10 MEQ IVPB 10 MEQ/100 ML INFUS.BAG IVPB SCH ×3 (09:44→11:46)
--- NOTE | 2020-06-26 10:05 | PN ---
Progress Note (short form) - Note Progress Note: RENAL Pt remains intubated unable to provide a history comfortable Last Vital Signs Temp Pulse Resp BP Pulse Ox 100.1 F H 96 H 20 106/54 L 99 06/26/20 08:00 06/26/20 08:00 06/26/20 08:00 06/26/20 08:00 06/26/20 08:27 lungs bilat air entry cvs s1s2 rr abd soft ext -edema neuro sedated CBC, BMP 06/26/20 05:45 06/26/20 05:45 Current Medications Generic Name Dose Route Start Last Admin Trade Name Freq PRN Reason Stop Dose Admin Allopurinol 300 mg 06/20/20 10:00 06/26/20 09:18 Zyloprim - PO 300 mg DAILY [facility] Administration Amino Acids 30 ml 06/22/20 17:30 06/26/20 09:00 Prosource No Carb Liquid Pkt PO 30 ml BID@0800,1730 [facility] Administration Artificial Tears 1 drop 06/20/20 10:00 06/26/20 09:17 Artificial Tears OU 1 drop DAILY [facility] Administration Atorvastatin Calcium 20 mg 06/19/20 22:00 06/25/20 21:05 Lipitor - PO 20 mg HS [facility] Administration Docusate Sodium 100 mg 06/22/20 08:55 Colace Liquid - PO Q8H PRN CONSTIPATION Hydrocortisone Sodium Succinate 50 mg 06/24/20 13:15 06/26/20 01:13 Solu-Cortef - IVPUSH 50 mg Q12H [facility] Administration Fentanyl 500 mcg in 100 mls @ 20 mls/hr 06/19/20 23:45 06/26/20 09:16 Sublimaze Ivpb IVPB Not Given TITR [facility] 100 MCG/HR Propofol 1,000,000 mcg in 100 mls @ 2.618 mls/hr 06/20/20 00:30 06/26/20 06:13 Diprivan - IVPB 50 mcg/kg/min TITR [facility] 26.181 mls/hr Administration Protocol 5 MCG/KG/MIN Vasopressin 40 units/ Sodium 100 mls @ 5 mls/hr 06/20/20 06:30 06/26/20 06:52 Chloride IVPB 0 units/hr ASDIR [facility] 0 mls/hr Titration Protocol 2 UNITS/HR Norepinephrine Bitartrate 16, 500 mls @ 9.375 mls/hr 06/20/20 08:00 06/26/20 03:00 000 mcg/ Sodium Chloride IV 10 mcg/min TITR [facility] 18.75 mls/hr Titration Protocol 5 MCG/MIN Sodium Chloride 250 mls @ 3,000 mls/hr 06/20/20 16:33 Normal Saline - IV 06/21/20 16:33 PRN PRN Hypotension during Dialysis Metronidazole 500 mg in 100 mls @ 100 mls/hr 06/21/20 18:00 06/26/20 09:21 Flagyl 500mg Premixed Ivpb - IVPB 100 mls/hr Q8H-IV [facility] Administration Cefepime HCl 2 gm/ Dextrose 100 mls @ 200 mls/hr 06/22/20 22:00 06/25/20 21:05 IVPB 200 mls/hr BID [facility] Administration Vancomycin HCl 1,000 mg in 250 mls @ 200 mls/hr 06/23/20 12:45 06/25/20 12:24 Vancomycin (Pre-Docked) IVPB 200 mls/hr Q24H [facility] Administration Protocol Potassium Chloride 10 meq in 100 mls @ 100 mls/hr 06/26/20 10:00 06/26/20 09:44 Potassium Chloride 10 Meq Premix Ivpb - IVPB 06/26/20 12:59 100 mls/hr Q60M [facility] Administration Pantoprazole Sodium 40 mg 06/21/20 10:00 06/26/20 09:17 Protonix Iv IVPUSH 40 mg DAILY [facility] Administration Polyethylene Glycol 17 gm 06/19/20 22:00 06/26/20 09:17 Miralax (For Daily Use) - PO 17 gm BID [facility] Administration Sevelamer Carbonate 2.4 gm 06/21/20 17:30 06/25/20 16:33 Renvela Powder Packet - PO 2.4 gm TIDCM [facility] Administration Impression 1. CKD 2. CML 3. AML 4. pleural effusions 5. htn 6. tumor lysis- seems better, not hyperkalemic or hyperphosphatemic 7. charisse 8. hyperkalemia 9. acuter resp failure Plan - vent support - monitor lytes - monitor output - dc renvela, would also dc allopurinol at this point - cont pressors to map 65 - oncology follow up noted - received rasburicase MV
[2020-06-26 10:09] LABS: ANISOCYTOSIS 1+; MACROCYTOSIS 0; PLATELET ESTIMATE DECREASED
--- NOTE | 2020-06-26 10:38 | PN ---
Teaching Attending Note Name of Resident: Rudy Sanabria ATTENDING PHYSICIAN STATEMENT I saw and evaluated the patient. I reviewed the resident's note and discussed the case with the resident. I agree with the resident's findings and plan as documented. SUBJECTIVE: Pt seen and examined in the ICU. Remains intubated, sedated on levophed gtt 10mcgs. Remains febrile, cultures negative. Vented on volume assist control with 40% FiO2. OBJECTIVE: Vital Signs Period Temp Pulse Resp BP Sys/Carrillo Pulse Ox Last 24 Hr 99 F-100.5 F 91-109 20-27 89-117/46-63 50-100 Intake & Output 06/23/20 06/24/20 06/25/20 06/26/20 23:59 23:59 23:59 23:59 Intake Total 3429.8 1861.2 2547.2 1242 Output Total 3520 4100 2100 800 Balance -90.2 -2238.8 447.2 442 Weight 82.2 kg 80.4 kg 81.6 kg 82.282 kg Gen: intubated, sedated Heart: RRR Lung: scattered rhonchi Abd: soft, nontender Ext: + edema CBC, BMP 06/26/20 05:45 06/26/20 05:45 Active Medications Allopurinol (Zyloprim -) 300 mg PO DAILY [facility] Last Admin: 06/26/20 09:18 Dose: 300 mg Documented by: Amino Acids (Prosource No Carb Liquid Pkt) 30 ml PO BID@0800,1730 [facility] Last Admin: 06/26/20 09:00 Dose: 30 ml Documented by: Artificial Tears (Artificial Tears) 1 drop OU DAILY [facility] Last Admin: 06/26/20 09:17 Dose: 1 drop Documented by: Atorvastatin Calcium (Lipitor -) 20 mg PO HS [facility] Last Admin: 06/25/20 21:05 Dose: 20 mg Documented by: Docusate Sodium (Colace Liquid -) 100 mg PO Q8H PRN PRN Reason: CONSTIPATION Hydrocortisone Sodium Succinate (Solu-Cortef -) 50 mg IVPUSH Q12H [facility] Last Admin: 06/26/20 01:13 Dose: 50 mg Documented by: Fentanyl (Sublimaze Ivpb) 500 mcg in 100 mls @ 20 mls/hr IVPB TITR [facility] Last Admin: 08/29/20 09:16 Dose: Not Given Documented by: Propofol (Diprivan -) 1,000,000 mcg in 100 mls @ 2.618 mls/hr IVPB TITR [facility]; Protocol Last Admin: 06/26/20 06:13 Dose: 50 mcg/kg/min, 26.181 mls/hr Documented by: Vasopressin 40 units/ Sodium (Chloride) 100 mls @ 5 mls/hr IVPB ASDIR [facility]; Protocol Last Titration: 06/26/20 06:52 Dose: 0 units/hr, 0 mls/hr Documented by: Norepinephrine Bitartrate 16, (000 mcg/ Sodium Chloride) 500 mls @ 9.375 mls/hr IV TITR [facility]; Protocol Last Titration: 06/26/20 03:00 Dose: 10 mcg/min, 18.75 mls/hr Documented by: Sodium Chloride (Normal Saline -) 250 mls @ 3,000 mls/hr IV PRN PRN PRN Reason: Hypotension during Dialysis Stop: 06/21/20 16:33 Metronidazole (Flagyl 500mg Premixed Ivpb -) 500 mg in 100 mls @ 100 mls/hr IVPB Q8H-IV [facility] Last Admin: 06/26/20 09:21 Dose: 100 mls/hr Documented by: Cefepime HCl 2 gm/ Dextrose 100 mls @ 200 mls/hr IVPB BID [facility] Last Admin: 06/25/20 21:05 Dose: 200 mls/hr Documented by: Vancomycin HCl (Vancomycin (Pre-Docked)) 1,000 mg in 250 mls @ 200 mls/hr IVPB Q24H [facility]; Protocol Last Admin: 06/25/20 12:24 Dose: 200 mls/hr Documented by: Potassium Chloride (Potassium Chloride 10 Meq Premix Ivpb -) 10 meq in 100 mls @ 100 mls/hr IVPB Q60M [facility] Stop: 06/26/20 12:59 Last Admin: 06/26/20 09:44 Dose: 100 mls/hr Documented by: Pantoprazole Sodium (Protonix Iv) 40 mg IVPUSH DAILY [facility] Last Admin: 06/26/20 09:17 Dose: 40 mg Documented by: Polyethylene Glycol (Miralax (For Daily Use) -) 17 gm PO BID [facility] Last Admin: 06/26/20 09:17 Dose: 17 gm Documented by: ASSESSMENT AND PLAN: Acute Hypoxic Respiratory Failure AML Tumor Lysis Syndrome Shock - ?Septic Acute Kidney Injury Hyperkalemia improved Anemia/Thrombocytopenia HTN Hyperlipidemia - antibiotics per ID - transfuse platelets - lasix today - monitor urine output, creatinine - monitor LDH, uric acid - titrate pressors to maintain MAP >65 - taper stress dose steroids - titrate FiO2 to keep SpO2 >90% - continue volume assist control - daily sedation vacations to assess mental status - enteral feeds - DVT/GI prophylaxis - continue ICU monitoring - continue discussions regarding goals of care critical care time spent in reviewing chart, evaluating patient and formulating plan 35 min
[2020-06-26] MEDS: CEFEPIME 2 GM in DEXTROSE 5%-WATER 100 ML IVPB SCH ×2 (10:41→23:36)
[2020-06-26] MEDS ORDERED: FUROSEMIDE 40 MG/4 ML INJECTABLE VIAL IVPUSH ONE ×3 (10:54→17:00)
[2020-06-26] MEDS ORDERED: ALBUMIN HUMAN 25% 100 ML VIAL IVPB SCH ×2 (11:00→12:00)
--- NOTE | 2020-06-26 11:04 | PN ---
<Mariza Velez - Last Filed: 06/27/20 17:28> Physical Exam: SUBJECTIVE: Patient seen and examined OBJECTIVE: Vital Signs Period Temp Pulse Resp BP Sys/Carrillo Pulse Ox Last 24 Hr 97.5 F-101.7 F 83-127 17-27 77-143/44-70 95-100 GENERAL: The patient is awake, alert, and fully oriented, in no acute distress. HEAD: Normal with no signs of trauma. EYES: PERRL, extraocular movements intact, sclera anicteric, conjunctiva clear. No ptosis. ENT: Ears normal, nares patent, oropharynx clear without exudates, moist mucous membranes. NECK: Trachea midline, full range of motion, supple. LUNGS: Breath sounds equal, clear to auscultation bilaterally, no wheezes, no crackles, no accessory muscle use. HEART: Regular rate and rhythm, S1, S2 without murmur, rub or gallop. ABDOMEN: Soft, nontender, nondistended, normoactive bowel sounds, no guarding, no rebound, no hepatosplenomegaly, no masses. EXTREMITIES: 2+ pulses, warm, well-perfused, no edema. NEUROLOGICAL: Cranial nerves II through XII grossly intact. Normal speech, gait not observed. PSYCH: Normal mood, normal affect. SKIN: Warm, dry, normal turgor, no rashes or lesions noted Laboratory Results - last 24 hr 06/26/20 06/27/20 06/27/20 22:54 06:00 06:00 WBC 97.9 H* 109.0 H* RBC 2.93 L 2.96 L Hgb 7.6 L 7.6 L Hct 25.1 L 25.4 L MCV 85.8 85.7 MCH 26.0 25.6 L MCHC 30.3 L 29.8 L RDW 19.7 H 19.6 H Plt Count 36 L* D 33 L* MPV 9.2 9.4 Absolute Neuts (auto) 92.3 H 63.7 H Neutrophils % 94.3 H D 58.5 D Neutrophils % (Manual) 76.0 58.5 D Band Neutrophils % 5.0 1.0 Lymphocytes % 4.2 L D 5.3 L D Lymphocytes % (Manual) 4.0 L 3.2 L Monocytes % 1.2 L D 35.8 H D Monocytes % (Manual) 6 6 Eosinophils % 0.2 D 0.2 Eosinophils % (Manual) 7.4 H Basophils % 0.1 0.2 Basophils % (Manual) 0.0 Myelocytes % (Man) 10 H D Promyelocytes % (Man) 1 D Blast Cells % (Manual) 7 H D 10 H D Nucleated RBC % 0 0 Metamyelocytes 2 D 2 Hypochromia 1+ 0 Platelet Estimate Decreased Decreased Polychromasia 1+ Poikilocytosis 0 Anisocytosis 2+ 2+ Microcytosis 2+ 2+ Macrocytosis 0 PT with INR 17.30 H INR 1.46 H PTT (Actin FS) 30.1 Fibrinogen D-Dimer Sodium Potassium Chloride Carbon Dioxide Anion Gap BUN Creatinine Est GFR (CKD-EPI)AfAm Est GFR (CKD-EPI)NonAf Random Glucose Uric Acid Calcium Phosphorus Magnesium Total Bilirubin AST ALT Alkaline Phosphatase LD Total Total Protein Albumin 06/27/20 06/27/20 06:00 06:00 WBC RBC Hgb Hct MCV MCH MCHC RDW Plt Count MPV Absolute Neuts (auto) Neutrophils % Neutrophils % (Manual) Band Neutrophils % Lymphocytes % Lymphocytes % (Manual) Monocytes % Monocytes % (Manual) Eosinophils % Eosinophils % (Manual) Basophils % Basophils % (Manual) Myelocytes % (Man) Promyelocytes % (Man) Blast Cells % (Manual) Nucleated RBC % Metamyelocytes Hypochromia Platelet Estimate Polychromasia Poikilocytosis Anisocytosis Microcytosis Macrocytosis PT with INR INR PTT (Actin FS) Fibrinogen 402.0 D-Dimer 8759 H Sodium 138 Potassium 3.0 L Chloride 105 Carbon Dioxide 22 Anion Gap 11 BUN 72.2 H Creatinine 1.7 H Est GFR (CKD-EPI)AfAm 46.00 Est GFR (CKD-EPI)NonAf 39.69 Random Glucose 128 H Uric Acid 5.8 Calcium 7.8 L Phosphorus 3.6 Magnesium 2.0 Total Bilirubin 1.3 H AST 33 ALT 9 L Alkaline Phosphatase 152 H LD Total 459 H Total Protein 5.8 L Albumin 2.3 L Active Medications Generic Name Dose Route Start Last Admin Trade Name Freq PRN Reason Stop Dose Admin Allopurinol 300 mg 06/20/20 10:00 06/27/20 09:00 Zyloprim - PO 300 mg DAILY ERMELINDA Administration Amino Acids 30 ml 06/22/20 17:30 06/27/20 09:00 Prosource No Carb Liquid Pkt PO 30 ml BID@0800,1730 ERMELINDA Administration Artificial Tears 1 drop 06/20/20 10:00 06/27/20 09:00 Artificial Tears OU 1 drop DAILY ERMELINDA Administration Atorvastatin Calcium 20 mg 06/19/20 22:00 06/26/20 23:36 Lipitor - PO 20 mg HS ERMELINDA Administration Docusate Sodium 100 mg 06/22/20 08:55 Colace Liquid - PO Q8H PRN CONSTIPATION Hydrocortisone Sodium Succinate 50 mg 06/24/20 13:15 06/27/20 13:17 Solu-Cortef - IVPUSH 50 mg Q12H ERMELINDA Administration Propofol 1,000,000 mcg in 100 mls @ 2.618 mls/hr 06/20/20 00:30 06/27/20 13:45 Diprivan - IVPB 50 mcg/kg/min TITR ERMELINDA 26.181 mls/hr Administration Protocol 5 MCG/KG/MIN Vasopressin 40 units/ Sodium 100 mls @ 5 mls/hr 06/20/20 06:30 06/27/20 10:25 Chloride IVPB 2 units/hr ASDIR ERMELINDA 5 mls/hr Administration Protocol 2 UNITS/HR Norepinephrine Bitartrate 16, 500 mls @ 9.375 mls/hr 06/20/20 08:00 06/27/20 13:14 000 mcg/ Sodium Chloride IV 24 mcg/min TITR ERMELINDA 45 mls/hr Administration Protocol 5 MCG/MIN Metronidazole 500 mg in 100 mls @ 100 mls/hr 06/21/20 18:00 06/27/20 10:07 Flagyl 500mg Premixed Ivpb - IVPB 100 mls/hr Q8H-IV ERMELINDA Administration Cefepime HCl 2 gm/ Dextrose 100 mls @ 200 mls/hr 06/22/20 22:00 06/27/20 09:00 IVPB 200 mls/hr BID ERMELINDA Administration Midazolam HCl 100 mg in 100 mls @ 1 mls/hr 06/26/20 22:30 06/27/20 13:17 Midazolam 100mg/100ml-0.9%Nacl IVPB Not Given TITR ERMELINDA Protocol 1 MG/HR Fentanyl 500 mcg in 100 mls @ 0.2 mls/hr 06/27/20 06:04 06/27/20 12:08 Sublimaze Ivpb IVPB 100 mcg/hr TITR ERMELINDA 20 mls/hr Administration 1 MCG/HR Pantoprazole Sodium 40 mg 06/21/20 10:00 06/27/20 09:00 Protonix Iv IVPUSH 40 mg DAILY ERMELINDA Administration Polyethylene Glycol 17 gm 06/19/20 22:00 06/27/20 09:01 Miralax (For Daily Use) - PO Not Given BID ERMELINDA ASSESSMENT/PLAN: ATTENDING PHYSICIAN STATEMENT I saw and evaluated the patient. I reviewed the resident's note and discussed the case with the resident. I agree with the resident's findings and plan as documented. SUBJECTIVE: OBJECTIVE: ASSESSMENT AND PLAN: <Rudy Sanabria - Last Filed: 06/28/20 13:43> Physical Exam: SUBJECTIVE: Patient seen and examined is sedated and intubated. OBJECTIVE: Vital Signs Period Temp Pulse Resp BP Sys/Carrillo Pulse Ox Last 24 Hr 99 F-100.5 F 91-109 20-27 98-117/47-63 50-100 GENERAL: The patient is intubated and sedated . HEAD: Normal with no signs of trauma. ENT: Ears normal, nares patent, intubated NECK: Trachea midline, supple. LUNGS: bilateral rhonchi improved from 06/24 HEART: Regular rate and rhythm, S1, S2 without murmur, rub or gallop. ABDOMEN: distended no grimacing, splenomegaly EXTREMITIES: 2+ pulses bilateral lower ext 2+ edema. With RUE also has lynn a SKIN: Warm, dry, normal turgor, no rashes or lesions noted Laboratory Results - last 24 hr 06/26/20 06/26/20 06/26/20 05:30 05:45 05:45 WBC 71.2 H* RBC 2.95 L Hgb 7.9 L Hct 25.2 L MCV 85.7 MCH 26.7 MCHC 31.1 L RDW 19.0 H Plt Count 26 L* MPV 9.7 D Absolute Neuts (auto) 49.8 H Neutrophils % 69.8 Neutrophils % (Manual) 64.0 Band Neutrophils % 3.5 Lymphocytes % 5.4 L D Lymphocytes % (Manual) 3.5 L D Monocytes % 24.4 H Monocytes % (Manual) 12 H Eosinophils % 0.1 Eosinophils % (Manual) 5.8 H D Basophils % 0.3 Basophils % (Manual) 0.0 Myelocytes % (Man) 5 H D Promyelocytes % (Man) 0 Blast Cells % (Manual) 4 H D Nucleated RBC % 0 Metamyelocytes 1 D Hypochromia 0 Platelet Estimate Decreased Polychromasia 1+ Poikilocytosis 0 Basophilic Stippling 1+ Anisocytosis 1+ Microcytosis 1+ Macrocytosis 0 PT with INR INR PTT (Actin FS) Fibrinogen D-Dimer Anticoagulation Therapy No Result Required. Puncture Site Left radial Patient Temperature No Result Required. ABG pH 7.369 ABG pCO2 39.20 ABG pO2 73.1 L ABG HCO3 22.1 ABG O2 Sat (Measured) 94.4 L ABG O2 Content No Result Required. ABG Base Excess -2.9 L Rhett Test Positive Patient On Oxygen Yes O2 Delivery Device Vent Oxygen Flow Rate 50% Vent Mode A/c Vent Rate 24 Mechanical Rate Yes PEEP 6.0 Pressure Support Vent 480 Sodium Potassium Chloride Carbon Dioxide Anion Gap BUN Creatinine Est GFR (CKD-EPI)AfAm Est GFR (CKD-EPI)NonAf Random Glucose Uric Acid Calcium Phosphorus Magnesium Total Bilirubin AST ALT Alkaline Phosphatase LD Total Total Protein Albumin Random Vancomycin 18.6 06/26/20 06/26/20 06/26/20 05:45 05:45 05:45 WBC RBC Hgb Hct MCV MCH MCHC RDW Plt Count MPV Absolute Neuts (auto) Neutrophils % Neutrophils % (Manual) Band Neutrophils % Lymphocytes % Lymphocytes % (Manual) Monocytes % Monocytes % (Manual) Eosinophils % Eosinophils % (Manual) Basophils % Basophils % (Manual) Myelocytes % (Man) Promyelocytes % (Man) Blast Cells % (Manual) Nucleated RBC % Metamyelocytes Hypochromia Platelet Estimate Polychromasia Poikilocytosis Basophilic Stippling Anisocytosis Microcytosis Macrocytosis PT with INR 16.00 H INR 1.35 H PTT (Actin FS) 27.0 Fibrinogen 346.0 D-Dimer 9136 H Anticoagulation Therapy Puncture Site Patient Temperature ABG pH ABG pCO2 ABG pO2 ABG HCO3 ABG O2 Sat (Measured) ABG O2 Content ABG Base Excess Rhett Test Patient On Oxygen O2 Delivery Device Oxygen Flow Rate Vent Mode Vent Rate Mechanical Rate PEEP Pressure Support Vent Sodium 139 Potassium 3.2 L Chloride 106 Carbon Dioxide 25 Anion Gap 8 BUN 63.6 H Creatinine 1.3 Est GFR (CKD-EPI)AfAm 63.62 Est GFR (CKD-EPI)NonAf 54.90 Random Glucose 131 H Uric Acid 4.9 Calcium 7.8 L Phosphorus 2.8 Magnesium 2.1 Total Bilirubin 0.9 AST 24 ALT 7 L Alkaline Phosphatase 115 LD Total 320 H Total Protein 5.6 L Albumin 2.2 L Random Vancomycin Active Medications Generic Name Dose Route Start Last Admin Trade Name Freq PRN Reason Stop Dose Admin Albumin Human 25 gm 06/26/20 11:00 Albumin Human 25% - IVPB 06/26/20 12:31 Q30M ERMELINDA Allopurinol 300 mg 06/20/20 10:00 06/26/20 09:18 Zyloprim - PO 300 mg DAILY ERMELINDA Administration Amino Acids 30 ml 06/22/20 17:30 06/26/20 09:00 Prosource No Carb Liquid Pkt PO 30 ml BID@0800,1730 ERMELINDA Administration Artificial Tears 1 drop 06/20/20 10:00 06/26/20 09:17 Artificial Tears OU 1 drop DAILY ERMELINDA Administration Atorvastatin Calcium 20 mg 06/19/20 22:00 06/25/20 21:05 Lipitor - PO 20 mg HS ERMELINDA Administration Docusate Sodium 100 mg 06/22/20 08:55 Colace Liquid - PO Q8H PRN CONSTIPATION Furosemide 40 mg 06/26/20 10:53 Lasix Injection - IVPUSH 06/26/20 10:54 ONCE ONE Furosemide 40 mg 06/26/20 17:00 Lasix Injection - IVPUSH 06/26/20 17:01 ONCE ONE Hydrocortisone Sodium Succinate 50 mg 06/24/20 13:15 06/26/20 01:13 Solu-Cortef - IVPUSH 50 mg Q12H ERMELINDA Administration Fentanyl 500 mcg in 100 mls @ 20 mls/hr 06/19/20 23:45 06/26/20 09:16 Sublimaze Ivpb IVPB Not Given TITR ERMELINDA 100 MCG/HR Propofol 1,000,000 mcg in 100 mls @ 2.618 mls/hr 06/20/20 00:30 06/26/20 06:13 Diprivan - IVPB 50 mcg/kg/min TITR ERMELINDA 26.181 mls/hr Administration Protocol 5 MCG/KG/MIN Vasopressin 40 units/ Sodium 100 mls @ 5 mls/hr 06/20/20 06:30 06/26/20 06:52 Chloride IVPB 0 units/hr ASDIR ERMELINDA 0 mls/hr Titration Protocol 2 UNITS/HR Norepinephrine Bitartrate 16, 500 mls @ 9.375 mls/hr 06/20/20 08:00 06/26/20 03:00 000 mcg/ Sodium Chloride IV 10 mcg/min TITR ERMELINDA 18.75 mls/hr Titration Protocol 5 MCG/MIN Sodium Chloride 250 mls @ 3,000 mls/hr 06/20/20 16:33 Normal Saline - IV 06/21/20 16:33 PRN PRN Hypotension during Dialysis Metronidazole 500 mg in 100 mls @ 100 mls/hr 06/21/20 18:00 06/26/20 09:21 Flagyl 500mg Premixed Ivpb - IVPB 100 mls/hr Q8H-IV ERMELINDA Administration Cefepime HCl 2 gm/ Dextrose 100 mls @ 200 mls/hr 06/22/20 22:00 06/26/20 10:41 IVPB 200 mls/hr BID ERMELINDA Administration Vancomycin HCl 1,000 mg in 250 mls @ 200 mls/hr 06/23/20 12:45 06/25/20 12:24 Vancomycin (Pre-Docked) IVPB 200 mls/hr Q24H ERMELINDA Administration Protocol Potassium Chloride 10 meq in 100 mls @ 100 mls/hr 06/26/20 10:00 06/26/20 10:41 Potassium Chloride 10 Meq Premix Ivpb - IVPB 06/26/20 12:59 100 mls/hr Q60M ERMELINDA Administration Pantoprazole Sodium 40 mg 06/21/20 10:00 06/26/20 09:17 Protonix Iv IVPUSH 40 mg DAILY ERMELINDA Administration Polyethylene Glycol 17 gm 06/19/20 22:00 06/26/20 09:17 Miralax (For Daily Use) - PO 17 gm BID ERMELINDA Administration ASSESSMENT/PLAN: 70 yo male pmh of htn, hld, 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 Pt intubatedd on 06/19 for hypoxic resp failure Neuro -Pt sedated on Fentanyl, Midazolam and propofol - CAT scan when stable Cardio: - echo normal of 06/15/20 - pt not tachycardic at time edema may be from hypoalbuminemia may stop lasix according to Cardiology - edema may be fixed with transfusion due to third spacing - Pt on levo 10 mcg due to hypotension pt will monitor for MAP<65 Resp: - Pt vented on RR 24; TV: 480 PEEP 6 FiO2 50% Pplat 8 - monitor LDH, uric acid - titrate pressors to maintain MAP >65 - taper stress dose steroids to q12hr - titrate FiO2 to keep SpO2 >90% - continue volume assist control Renal: - appreciate nephro recommendation renal function stable -d/c shiley cath on 06/23 - replace potassium monitor K and phos - Pt will be given two lasix doses one after albumin another after platelets. -- dc renvela, would also dc allopurinol at this point - Phos binder dc. Allopurinol will wait on heme consult. - K 3.2 repleted Heme Onc: - Appreciate heme onc consult on CML to AML. 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 On Neppro ID -ON cefepime 2g BID (started 06/22) flaggyl 500 mg q8hrs (06/21) and vanco 1 gm QD 7 day over - will get vancomycin levels random (06/25). Repeat for fourth dose 06/27 - Tylenol prn 1000 every 8 hrs - Blood cultures recultured FIN: - Fluids halted pt started on feed, hydration, monitor lytes - K 3.2 K repleted - albumin 25 g given Prophylaxis - heparin 5000 TID - Protonix for PUD ATTENDING PHYSICIAN STATEMENT I saw and evaluated the patient. I reviewed the resident's note and discussed the case with the resident. I agree with the resident's findings and plan as documented. SUBJECTIVE: OBJECTIVE: ASSESSMENT AND PLAN:
[2020-06-26] MEDS ORDERED: ALBUMIN HUMAN 25% 12.5 GM/50 ML VIAL IVPB SCH ×2 (12:00→13:00)
[2020-06-26] MEDS: VASOPRESSIN 40 UNITS in SODIUM CHLORIDE 98 ML IVPB SCH (12:15)
[2020-06-26] MEDS ORDERED: ACETAMINOPHEN 1000 MG/100 ML VIAL (NON FORMULARY) IVPB PRN (12:29)
[2020-06-26] MEDS: NOREPINEPHRINE BITARTRATE 16,000 MCG in SODIUM CHLORIDE 484 ML IV SCH (12:34)
--- NOTE | 2020-06-26 13:48 | PN ---
Progress Note, Physician Chief Complaint: FEVER OVERNIGHT STILL INTUBATED AND SEDATED UNABLE TO DECREASE PRESSORS AND WEAN OFF VENT - Current Medication List Current Medications: Active Medications Acetaminophen (Ofirmev Injection -) 1,000 mg IVPB Q8H PRN PRN Reason: FEVER Stop: 06/27/20 12:29 Last Admin: 06/26/20 13:01 Dose: 1,000 mg Documented by: Allopurinol (Zyloprim -) 300 mg PO DAILY [facility] Last Admin: 06/26/20 09:18 Dose: 300 mg Documented by: Amino Acids (Prosource No Carb Liquid Pkt) 30 ml PO BID@0800,1730 [facility] Last Admin: 06/26/20 09:00 Dose: 30 ml Documented by: Artificial Tears (Artificial Tears) 1 drop OU DAILY [facility] Last Admin: 06/26/20 09:17 Dose: 1 drop Documented by: Atorvastatin Calcium (Lipitor -) 20 mg PO HS ERMELINDA Last Admin: 06/25/20 21:05 Dose: 20 mg Documented by: Docusate Sodium (Colace Liquid -) 100 mg PO Q8H PRN PRN Reason: CONSTIPATION Furosemide (Lasix Injection -) 40 mg IVPUSH ONCE ONE Stop: 06/26/20 17:01 Hydrocortisone Sodium Succinate (Solu-Cortef -) 50 mg IVPUSH Q12H ERMELINDA Last Admin: 06/26/20 13:23 Dose: 50 mg Documented by: Fentanyl (Sublimaze Ivpb) 500 mcg in 100 mls @ 20 mls/hr IVPB TITR [facility] Last Admin: 06/26/20 11:52 Dose: 100 mcg/hr, 20 mls/hr Documented by: Propofol (Diprivan -) 1,000,000 mcg in 100 mls @ 2.618 mls/hr IVPB TITR [facility]; Protocol Last Admin: 06/26/20 10:00 Dose: 50 mcg/kg/min, 26.181 mls/hr Documented by: Vasopressin 40 units/ Sodium (Chloride) 100 mls @ 5 mls/hr IVPB ASDIR ERMELINDA; Protocol Last Admin: 06/26/20 12:15 Dose: Not Given Documented by: Norepinephrine Bitartrate 16, (000 mcg/ Sodium Chloride) 500 mls @ 9.375 mls/hr IV TITR [facility]; Protocol Last Admin: 06/26/20 12:34 Dose: 12 mcg/min, 22.5 mls/hr Documented by: Sodium Chloride (Normal Saline -) 250 mls @ 3,000 mls/hr IV PRN PRN PRN Reason: Hypotension during Dialysis Stop: 06/21/20 16:33 Metronidazole (Flagyl 500mg Premixed Ivpb -) 500 mg in 100 mls @ 100 mls/hr IVPB Q8H-IV [facility] Last Admin: 06/26/20 09:21 Dose: 100 mls/hr Documented by: Cefepime HCl 2 gm/ Dextrose 100 mls @ 200 mls/hr IVPB BID [facility] Last Admin: 06/26/20 10:41 Dose: 200 mls/hr Documented by: Pantoprazole Sodium (Protonix Iv) 40 mg IVPUSH DAILY [facility] Last Admin: 06/26/20 09:17 Dose: 40 mg Documented by: Polyethylene Glycol (Miralax (For Daily Use) -) 17 gm PO BID [facility] Last Admin: 06/26/20 09:17 Dose: 17 gm Documented by: - Objective Vital Signs: Vital Signs Temperature 101.6 F H 06/26/20 12:00 Pulse Rate 115 H 06/26/20 12:34 Respiratory Rate 21 H 06/26/20 12:00 Blood Pressure 103/52 L 06/26/20 12:34 O2 Sat by Pulse Oximetry (%) 100 06/26/20 12:00 Constitutional: Yes: Other Cardiovascular: Yes: Pulse Irregular Respiratory: Yes: Diminished, Mechanically Ventilated Gastrointestinal: Yes: Soft Genitourinary: Yes: García Present Musculoskeletal: Yes: Muscle Weakness Edema: Yes Neurological: Yes: Other Labs: CBC, BMP 06/26/20 05:45 06/26/20 05:45 INR, PTT INR 1.35 (0.83-1.09) H 06/26/20 05:45 Fibrinogen 346.0 mg/dL (238-498) 06/26/20 05:45 Problem List - Problems (1) AML (acute myeloblastic leukemia) Code(s): C92.00 - ACUTE MYELOBLASTIC LEUKEMIA, NOT HAVING ACHIEVED REMISSION (2) CHF (congestive heart failure) Code(s): I50.9 - HEART FAILURE, UNSPECIFIED (3) Palpitations Code(s): R00.2 - PALPITATIONS (4) Shortness of breath Code(s): R06.02 - SHORTNESS OF BREATH (5) Acute renal failure Code(s): N17.9 - ACUTE KIDNEY FAILURE, UNSPECIFIED (6) Abdominal distention Code(s): R14.0 - ABDOMINAL DISTENSION (GASEOUS) (7) CML (chronic myelocytic leukemia) Code(s): C92.10 - CHRONIC MYELOID LEUK, BCR/ABL-POSITIVE, NOT ACHIEVE REMIS Assessment/Plan ON VENT SUPPORT D/W ICU TEAM WEANING PROTOCOL TOLERATED REDUCING SEDATION TO OFF THEN WEANING TODAY ON 40% FIO2 HD PER NEPHROLOGY ON ABX TRANSFUSE PRBC PER ONCOLOGY DVT 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
--- NOTE | 2020-06-26 21:42 | PN ---
Progress Note (short form) - Note Progress Note: Patient seen in follow up. No new complaints. No significant events overnight. Inpatient Meds reviewed. Current Medications Generic Name Dose Route Start Last Admin Trade Name Freq PRN Reason Stop Dose Admin Acetaminophen 1,000 mg 06/26/20 12:29 06/26/20 13:01 Ofirmev Injection - IVPB 06/27/20 12:29 1,000 mg Q8H PRN Administration FEVER Allopurinol 300 mg 06/20/20 10:00 06/26/20 09:18 Zyloprim - PO 300 mg DAILY ERMELINDA Administration Amino Acids 30 ml 06/22/20 17:30 06/26/20 17:23 Prosource No Carb Liquid Pkt PO 30 ml BID@0800,1730 ERMELINDA Administration Artificial Tears 1 drop 06/20/20 10:00 06/26/20 09:17 Artificial Tears OU 1 drop DAILY ERMELINDA Administration Atorvastatin Calcium 20 mg 06/19/20 22:00 06/25/20 21:05 Lipitor - PO 20 mg HS ERMELINDA Administration Docusate Sodium 100 mg 06/22/20 08:55 Colace Liquid - PO Q8H PRN CONSTIPATION Hydrocortisone Sodium Succinate 50 mg 06/24/20 13:15 06/26/20 13:23 Solu-Cortef - IVPUSH 50 mg Q12H ERMELINDA Administration Fentanyl 500 mcg in 100 mls @ 20 mls/hr 06/19/20 23:45 06/26/20 17:23 Sublimaze Ivpb IVPB 100 mcg/hr TITR ERMELINDA 20 mls/hr Administration 100 MCG/HR Propofol 1,000,000 mcg in 100 mls @ 2.618 mls/hr 06/20/20 00:30 06/26/20 18:08 Diprivan - IVPB 50 mcg/kg/min TITR ERMELINDA 26.181 mls/hr Administration Protocol 5 MCG/KG/MIN Vasopressin 40 units/ Sodium 100 mls @ 5 mls/hr 06/20/20 06:30 06/26/20 12:15 Chloride IVPB Not Given ASDIR ERMELINDA Protocol 2 UNITS/HR Norepinephrine Bitartrate 16, 500 mls @ 9.375 mls/hr 06/20/20 08:00 06/26/20 12:34 000 mcg/ Sodium Chloride IV 12 mcg/min TITR ERMELINDA 22.5 mls/hr Administration Protocol 5 MCG/MIN Sodium Chloride 250 mls @ 3,000 mls/hr 06/20/20 16:33 Normal Saline - IV 06/21/20 16:33 PRN PRN Hypotension during Dialysis Metronidazole 500 mg in 100 mls @ 100 mls/hr 06/21/20 18:00 06/26/20 17:23 Flagyl 500mg Premixed Ivpb - IVPB 100 mls/hr Q8H-IV ERMELINDA Administration Cefepime HCl 2 gm/ Dextrose 100 mls @ 200 mls/hr 06/22/20 22:00 06/26/20 10:41 IVPB 200 mls/hr BID ERMELINDA Administration Pantoprazole Sodium 40 mg 06/21/20 10:00 06/26/20 09:17 Protonix Iv IVPUSH 40 mg DAILY ERMELINDA Administration Polyethylene Glycol 17 gm 06/19/20 22:00 06/26/20 09:17 Miralax (For Daily Use) - PO 17 gm BID ERMELINDA Administration On Examination: Last Vital Signs Temp Pulse Resp BP Pulse Ox 101.7 F H 115 H 26 H 110/53 L 100 06/26/20 18:00 06/26/20 18:00 06/26/20 20:45 06/26/20 18:00 06/26/20 20:45 General: Sedated, intubated, ventillated. Labs: CBC, BMP 06/26/20 05:45 06/26/20 05:45 Assessment. CMML with blastic crisis/AML conversion. S/p 5 days hypomethylating agent, now with hypotension, requiring inotropic support, intubated and ventillated. Concern about TLS previously, s/p rasburicae X2 and now on allopurinol. Ongoing fevers, unknown source (possibly 'tumor fevers'), cultures negative, on empiric broad-spectrum abics. Continue supportive care - blood product support according to parameters delineated in prior note. Prognosis is poor. Please call if questions.
--- NOTE | 2020-06-26 22:46 | PN ---
Progress Note, Physician History of Present Illness: INTUBATED REMAINS FEBRILE WBC 71 PLT 36 VANCO TROUGH 18.6 - Current Medication List Current Medications: Active Medications Acetaminophen (Ofirmev Injection -) 1,000 mg IVPB Q8H PRN PRN Reason: FEVER Stop: 06/27/20 12:29 Last Admin: 06/26/20 13:01 Dose: 1,000 mg Documented by: Allopurinol (Zyloprim -) 300 mg PO DAILY ERMELINDA Last Admin: 06/26/20 09:18 Dose: 300 mg Documented by: Amino Acids (Prosource No Carb Liquid Pkt) 30 ml PO BID@0800,1730 ERMELINDA Last Admin: 06/26/20 17:23 Dose: 30 ml Documented by: Artificial Tears (Artificial Tears) 1 drop OU DAILY ERMELINDA Last Admin: 06/26/20 09:17 Dose: 1 drop Documented by: Atorvastatin Calcium (Lipitor -) 20 mg PO HS ERMELINDA Last Admin: 06/25/20 21:05 Dose: 20 mg Documented by: Docusate Sodium (Colace Liquid -) 100 mg PO Q8H PRN PRN Reason: CONSTIPATION Hydrocortisone Sodium Succinate (Solu-Cortef -) 50 mg IVPUSH Q12H ERMELINDA Last Admin: 06/26/20 13:23 Dose: 50 mg Documented by: Fentanyl (Sublimaze Ivpb) 500 mcg in 100 mls @ 20 mls/hr IVPB TITR [facility] Last Admin: 06/26/20 17:23 Dose: 100 mcg/hr, 20 mls/hr Documented by: Propofol (Diprivan -) 1,000,000 mcg in 100 mls @ 2.618 mls/hr IVPB TITR [facility]; Protocol Last Admin: 06/26/20 18:08 Dose: 50 mcg/kg/min, 26.181 mls/hr Documented by: Vasopressin 40 units/ Sodium (Chloride) 100 mls @ 5 mls/hr IVPB ASDIR ERMELINDA; Protocol Last Admin: 06/26/20 12:15 Dose: Not Given Documented by: Norepinephrine Bitartrate 16, (000 mcg/ Sodium Chloride) 500 mls @ 9.375 mls/hr IV TITR ERMELINDA; Protocol Last Admin: 06/26/20 12:34 Dose: 12 mcg/min, 22.5 mls/hr Documented by: Sodium Chloride (Normal Saline -) 250 mls @ 3,000 mls/hr IV PRN PRN PRN Reason: Hypotension during Dialysis Stop: 06/21/20 16:33 Metronidazole (Flagyl 500mg Premixed Ivpb -) 500 mg in 100 mls @ 100 mls/hr IVPB Q8H-IV ERMELINDA Last Admin: 06/26/20 17:23 Dose: 100 mls/hr Documented by: Cefepime HCl 2 gm/ Dextrose 100 mls @ 200 mls/hr IVPB BID ERMELINDA Last Admin: 06/26/20 10:41 Dose: 200 mls/hr Documented by: Midazolam HCl (Midazolam 100mg/100ml-0.9%Nacl) 100 mg in 100 mls @ 1 mls/hr IVPB TITR ERMELINDA; Protocol Pantoprazole Sodium (Protonix Iv) 40 mg IVPUSH DAILY [facility] Last Admin: 06/26/20 09:17 Dose: 40 mg Documented by: Polyethylene Glycol (Miralax (For Daily Use) -) 17 gm PO BID ERMELINDA Last Admin: 06/26/20 09:17 Dose: 17 gm Documented by: - Objective Vital Signs: Vital Signs Temperature 101.7 F H 06/26/20 18:00 Pulse Rate 115 H 06/26/20 18:00 Respiratory Rate 26 H 06/26/20 20:45 Blood Pressure 110/53 L 06/26/20 18:00 O2 Sat by Pulse Oximetry (%) 100 06/26/20 20:45 Constitutional: Yes: No Distress Eyes: Yes: Conjunctiva Clear Cardiovascular: Yes: Regular Rate and Rhythm, S1, S2 Respiratory: Yes: Mechanically Ventilated Gastrointestinal: Yes: Normal Bowel Sounds, Soft Edema: Yes Labs: CBC, BMP 06/26/20 05:45 06/26/20 05:45 INR, PTT INR 1.35 (0.83-1.09) H 06/26/20 05:45 Fibrinogen 346.0 mg/dL (238-498) 06/26/20 05:45 Assessment/Plan FEVER ? TUMOR FEVER ? ATELECTASIS EFFUSIONS/ ATELECTASIS AML TUMOR LYSIS SYNDROME CONTINUE CEFEPIME/ FLAGYL
[2020-06-26 23:03] LABS: BASO % 0.1 % (0-2.0); EOS % 0.2 % (0-4.5); HEMATOCRIT 25.1 % (35.4-49); HEMOGLOBIN 7.6 GM/dL (11.7-16.9); LYMPH % 4.2 % (8-40); MCHC 30.3 g/dl (32.0-35.9); MEAN CELL VOLUME 85.8 fl (80-96); MEAN PLT VOLUME 9.2 fl (7.5-11.1); MONO % 1.2 % (3.8-10.2); NEUT % 94.3 % (42.8-82.8); RBC 2.93 M/mm3 (4.00-5.60); RDW 19.7 % (11.9-15.9)
[2020-06-26 23:05] LABS: PLATELET COUNT 36 K/MM3 (134-434); WHITE BLOOD COUNT 97.9 K/mm3 (4.0-10.0)
[2020-06-26] MEDS: ATORVASTATIN CA 20 MG TABLET (FP) PO SCH (23:36)
[2020-06-26 23:53] LABS: ANISOCYTOSIS 2+; PLATELET ESTIMATE DECREASED
[2020-06-27] MEDS ORDERED: FENTANYL IVPB 500 MCG/100 ML BAG IVPB ONE ×2 (02:54→05:59)
[2020-06-27] MEDS ORDERED: PT OWN MED DRAWER 7, Y5N ONE ×2 (03:00→08:56)
[2020-06-27] MEDS: HYDROCORTISONE SOD SUCCINATE 100 MG/2 ML VIAL IVPUSH SCH ×2 (03:38→13:17)
[2020-06-27] MEDS: PROPOFOL 1,000,000 MCG/100 ML VIAL IVPB SCH ×4 (03:38→17:54)
[2020-06-27] MEDS: FENTANYL NS IVPB 500 MCG/100 ML BAG IVPB SCH ×2 (06:30→12:08)
[2020-06-27] MEDS: VASOPRESSIN 40 UNITS in SODIUM CHLORIDE 98 ML IVPB SCH ×2 (06:31→10:25)
[2020-06-27 07:44] LABS: BASO % 0.2 % (0-2.0); EOS % 0.2 % (0-4.5); HEMATOCRIT 25.4 % (35.4-49); HEMOGLOBIN 7.6 GM/dL (11.7-16.9); LYMPH % 5.3 % (8-40); MCH 25.6 pg (25.7-33.7); MCHC 29.8 g/dl (32.0-35.9); MEAN CELL VOLUME 85.7 fl (80-96); MEAN PLT VOLUME 9.4 fl (7.5-11.1); MONO % 35.8 % (3.8-10.2); NEUT % 58.5 % (42.8-82.8); RBC 2.96 M/mm3 (4.00-5.60); RDW 19.6 % (11.9-15.9)
[2020-06-27 07:56] LABS: ACTIVATED PTT 30.1 SECONDS (25.2-36.5); INR 1.46 (0.83-1.09); PROTHROMBIN TIME (PATIENT) 17.3 SEC (9.7-13.0)
[2020-06-27 08:28] LABS: ALBUMIN 2.3 g/dl (3.4-5.0); BILIRUBIN,TOTAL 1.3 mg/dL (0.2-1); BLOOD UREA NITROGEN 72.2 mg/dL (7-18); CALCIUM 7.8 mg/dL (8.5-10.1); CREATININE 1.7 mg/dL (0.55-1.3); PHOSPHOROUS 3.6 mg/dL (2.5-4.9); TOT PROT 5.8 g/dl (6.4-8.2); URIC ACID 5.8 mg/dL (2.6-7.2)
--- NOTE | 2020-06-27 08:50 | PN ---
Progress Note, Physician Chief Complaint: FEVER OVERNIGHT STILL INTUBATED AND SEDATED UNABLE TO DECREASE PRESSORS AND WEAN OFF VENT 60% FIO2 - Current Medication List Current Medications: Active Medications Acetaminophen (Ofirmev Injection -) 1,000 mg IVPB Q8H PRN PRN Reason: FEVER Stop: 06/27/20 12:29 Last Admin: 06/26/20 13:01 Dose: 1,000 mg Documented by: Allopurinol (Zyloprim -) 300 mg PO DAILY ERMELINDA Last Admin: 06/26/20 09:18 Dose: 300 mg Documented by: Amino Acids (Prosource No Carb Liquid Pkt) 30 ml PO BID@0800,1730 ERMELINDA Last Admin: 06/26/20 17:23 Dose: 30 ml Documented by: Artificial Tears (Artificial Tears) 1 drop OU DAILY ERMELINDA Last Admin: 06/26/20 09:17 Dose: 1 drop Documented by: Atorvastatin Calcium (Lipitor -) 20 mg PO HS ERMELINDA Last Admin: 06/26/20 23:36 Dose: 20 mg Documented by: Docusate Sodium (Colace Liquid -) 100 mg PO Q8H PRN PRN Reason: CONSTIPATION Hydrocortisone Sodium Succinate (Solu-Cortef -) 50 mg IVPUSH Q12H ERMELINDA Last Admin: 06/27/20 03:38 Dose: 50 mg Documented by: Propofol (Diprivan -) 1,000,000 mcg in 100 mls @ 2.618 mls/hr IVPB TITR ERMELINDA; Protocol Last Admin: 06/27/20 03:38 Dose: 50 mcg/kg/min, 26.181 mls/hr Documented by: Vasopressin 40 units/ Sodium (Chloride) 100 mls @ 5 mls/hr IVPB ASDIR ERMELINDA; Protocol Last Admin: 06/27/20 06:31 Dose: Not Given Documented by: Norepinephrine Bitartrate 16, (000 mcg/ Sodium Chloride) 500 mls @ 9.375 mls/hr IV TITR ERMELINDA; Protocol Last Admin: 06/26/20 12:34 Dose: 12 mcg/min, 22.5 mls/hr Documented by: Metronidazole (Flagyl 500mg Premixed Ivpb -) 500 mg in 100 mls @ 100 mls/hr IVPB Q8H-IV ERMELINDA Last Admin: 06/27/20 03:38 Dose: 100 mls/hr Documented by: Cefepime HCl 2 gm/ Dextrose 100 mls @ 200 mls/hr IVPB BID [facility] Last Admin: 06/26/20 23:36 Dose: 200 mls/hr Documented by: Midazolam HCl (Midazolam 100mg/100ml-0.9%Nacl) 100 mg in 100 mls @ 1 mls/hr IVPB TITR ERMELINDA; Protocol Fentanyl (Sublimaze Ivpb) 500 mcg in 100 mls @ 0.2 mls/hr IVPB TITR [facility] Last Admin: 06/27/20 06:30 Dose: 100 mcg/hr, 20 mls/hr Documented by: Pantoprazole Sodium (Protonix Iv) 40 mg IVPUSH DAILY [facility] Last Admin: 06/26/20 09:17 Dose: 40 mg Documented by: Polyethylene Glycol (Miralax (For Daily Use) -) 17 gm PO BID [facility] Last Admin: 06/26/20 23:36 Dose: Not Given Documented by: - Objective Vital Signs: Vital Signs Temperature 97.8 F 06/27/20 08:00 Pulse Rate 87 06/27/20 08:00 Respiratory Rate 21 H 06/27/20 08:00 Blood Pressure 117/53 L 06/27/20 08:00 O2 Sat by Pulse Oximetry (%) 100 06/27/20 08:41 Constitutional: Yes: Moderate Distress Cardiovascular: Yes: Pulse Irregular Respiratory: Yes: Diminished, Mechanically Ventilated Gastrointestinal: Yes: Distention Genitourinary: Yes: García Present Musculoskeletal: Yes: Muscle Weakness Edema: Yes Labs: CBC, BMP 06/27/20 06:00 06/27/20 06:00 INR, PTT INR 1.46 (0.83-1.09) H 06/27/20 06:00 Fibrinogen 402.0 mg/dL (238-498) 06/27/20 06:00 Problem List - Problems (1) AML (acute myeloblastic leukemia) Code(s): C92.00 - ACUTE MYELOBLASTIC LEUKEMIA, NOT HAVING ACHIEVED REMISSION (2) CHF (congestive heart failure) Code(s): I50.9 - HEART FAILURE, UNSPECIFIED (3) Palpitations Code(s): R00.2 - PALPITATIONS (4) Shortness of breath Code(s): R06.02 - SHORTNESS OF BREATH (5) Acute renal failure Code(s): N17.9 - ACUTE KIDNEY FAILURE, UNSPECIFIED (6) Abdominal distention Code(s): R14.0 - ABDOMINAL DISTENSION (GASEOUS) (7) CML (chronic myelocytic leukemia) Code(s): C92.10 - CHRONIC MYELOID LEUK, BCR/ABL-POSITIVE, NOT ACHIEVE REMIS Assessment/Plan ON VENT SUPPORT D/W ICU TEAM WEANING PROTOCOL TOLERATED REDUCING SEDATION TO OFF THEN WEANING TODAY ON 40% FIO2 HD PER NEPHROLOGY ON ABX TRANSFUSE PRBC PER ONCOLOGY DVT 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
[2020-06-27 08:53] LABS: PLATELET COUNT 33 K/MM3 (134-434)
[2020-06-27] MEDS: ALLOPURINOL 300 MG TABLET (FP) PO SCH (09:00)
[2020-06-27] MEDS: CEFEPIME 2 GM in DEXTROSE 5%-WATER 100 ML IVPB SCH ×2 (09:00→21:30)
[2020-06-27] MEDS: AMINO ACIDS/PROTEIN HYDROLYS 30 ML LIQUID.PKT PO SCH ×2 (09:00→18:22)
[2020-06-27] MEDS: PANTOPRAZOLE SODIUM 40 MG VIAL IVPUSH SCH (09:00)
[2020-06-27] MEDS: ARTIFICIAL TEARS (POLYVINYL ALCOHOL) OPTH DROPS OU SCH (09:00)
[2020-06-27] MEDS: POLYETHYLENE GLYCOL 3350 119 GM BTL PO SCH ×2 (09:01→21:31)
--- NOTE | 2020-06-27 09:42 | PN ---
Progress Note, Physician History of Present Illness: INTUBATED HYPOTENSIVE ON PRESSORS TEMPS DOWN WBC 109 VANCO TROUGH 18.6 - Current Medication List Current Medications: Active Medications Acetaminophen (Ofirmev Injection -) 1,000 mg IVPB Q8H PRN PRN Reason: FEVER Stop: 06/27/20 12:29 Last Admin: 06/26/20 13:01 Dose: 1,000 mg Documented by: Allopurinol (Zyloprim -) 300 mg PO DAILY ERMELINDA Last Admin: 06/27/20 09:00 Dose: 300 mg Documented by: Amino Acids (Prosource No Carb Liquid Pkt) 30 ml PO BID@0800,1730 ERMELINDA Last Admin: 06/27/20 09:00 Dose: 30 ml Documented by: Artificial Tears (Artificial Tears) 1 drop OU DAILY ERMELINDA Last Admin: 06/27/20 09:00 Dose: 1 drop Documented by: Atorvastatin Calcium (Lipitor -) 20 mg PO HS ERMELINDA Last Admin: 06/26/20 23:36 Dose: 20 mg Documented by: Docusate Sodium (Colace Liquid -) 100 mg PO Q8H PRN PRN Reason: CONSTIPATION Hydrocortisone Sodium Succinate (Solu-Cortef -) 50 mg IVPUSH Q12H ERMELINDA Last Admin: 06/27/20 03:38 Dose: 50 mg Documented by: Propofol (Diprivan -) 1,000,000 mcg in 100 mls @ 2.618 mls/hr IVPB TITR ERMELINDA; Protocol Last Admin: 06/27/20 09:00 Dose: 50 mcg/kg/min, 26.181 mls/hr Documented by: Vasopressin 40 units/ Sodium (Chloride) 100 mls @ 5 mls/hr IVPB ASDIR ERMELINDA; Protocol Last Admin: 06/27/20 06:31 Dose: Not Given Documented by: Norepinephrine Bitartrate 16, (000 mcg/ Sodium Chloride) 500 mls @ 9.375 mls/hr IV TITR ERMELINDA; Protocol Last Admin: 06/26/20 12:34 Dose: 12 mcg/min, 22.5 mls/hr Documented by: Metronidazole (Flagyl 500mg Premixed Ivpb -) 500 mg in 100 mls @ 100 mls/hr IVPB Q8H-IV ERMELINDA Last Admin: 06/27/20 03:38 Dose: 100 mls/hr Documented by: Cefepime HCl 2 gm/ Dextrose 100 mls @ 200 mls/hr IVPB BID ERMELINDA Last Admin: 06/27/20 09:00 Dose: 200 mls/hr Documented by: Midazolam HCl (Midazolam 100mg/100ml-0.9%Nacl) 100 mg in 100 mls @ 1 mls/hr IVPB TITR ERMELINDA; Protocol Fentanyl (Sublimaze Ivpb) 500 mcg in 100 mls @ 0.2 mls/hr IVPB TITR ERMELINDA Last Admin: 06/27/20 06:30 Dose: 100 mcg/hr, 20 mls/hr Documented by: Pantoprazole Sodium (Protonix Iv) 40 mg IVPUSH DAILY [facility] Last Admin: 06/27/20 09:00 Dose: 40 mg Documented by: Polyethylene Glycol (Miralax (For Daily Use) -) 17 gm PO BID [facility] Last Admin: 06/27/20 09:01 Dose: Not Given Documented by: - Objective Vital Signs: Vital Signs Temperature 97.8 F 06/27/20 08:00 Pulse Rate 87 06/27/20 08:00 Respiratory Rate 25 H 06/27/20 08:25 Blood Pressure 117/53 L 06/27/20 08:00 O2 Sat by Pulse Oximetry (%) 100 06/27/20 08:41 Constitutional: Yes: No Distress Eyes: Yes: Conjunctiva Clear Cardiovascular: Yes: Regular Rate and Rhythm, S1, S2 Respiratory: Yes: Mechanically Ventilated Edema: Yes Labs: CBC, BMP 06/27/20 06:00 06/27/20 06:00 INR, PTT INR 1.46 (0.83-1.09) H 06/27/20 06:00 Fibrinogen 402.0 mg/dL (238-498) 06/27/20 06:00 Assessment/Plan FEVER ? TUMOR FEVER ? ATELECTASIS EFFUSIONS/ ATELECTASIS AML TUMOR LYSIS SYNDROME CONTINUE CEFEPIME/ FLAGYL REDOSE VANCO CHECK RANDOM LEVEL AM
[2020-06-27 10:05] LABS: ANISOCYTOSIS 2+; MACROCYTOSIS 0; PLATELET ESTIMATE DECREASED
--- NOTE | 2020-06-27 10:10 | PN ---
Teaching Attending Note Name of Resident: Mariza Velez ATTENDING PHYSICIAN STATEMENT I saw and evaluated the patient. I reviewed the resident's note and discussed the case with the resident. I agree with the resident's findings and plan as documented. SUBJECTIVE: Pt seen and examined in the ICU. Remains intubated, sedated on levophed gtt 30mcgs. Remains febrile, cultures negative. Vented on volume assist control with 50% FiO2. OBJECTIVE: Vital Signs Period Temp Pulse Resp BP Sys/Carrillo Pulse Ox Last 24 Hr 97.7 F-101.7 F 87-127 17-26 102-143/49-57 95-100 Intake & Output 06/24/20 06/25/20 06/26/20 06/27/20 23:59 23:59 23:59 23:59 Intake Total 1861.2 2547.2 3170.1 1042 Output Total 4100 2100 1520 800 Balance -2238.8 447.2 1650.1 242 Weight 80.4 kg 81.6 kg 82.282 kg 85.729 kg Gen: intubated, sedated Heart: RRR Lung: scattered rhonchi Abd: soft, nontender Ext: + edema CBC, BMP 06/27/20 06:00 06/27/20 06:00 Active Medications Acetaminophen (Ofirmev Injection -) 1,000 mg IVPB Q8H PRN PRN Reason: FEVER Stop: 06/27/20 12:29 Last Admin: 06/26/20 13:01 Dose: 1,000 mg Documented by: Allopurinol (Zyloprim -) 300 mg PO DAILY [facility] Last Admin: 06/27/20 09:00 Dose: 300 mg Documented by: Amino Acids (Prosource No Carb Liquid Pkt) 30 ml PO BID@0800,1730 [facility] Last Admin: 06/27/20 09:00 Dose: 30 ml Documented by: Artificial Tears (Artificial Tears) 1 drop OU DAILY [facility] Last Admin: 06/27/20 09:00 Dose: 1 drop Documented by: Atorvastatin Calcium (Lipitor -) 20 mg PO HS [facility] Last Admin: 06/26/20 23:36 Dose: 20 mg Documented by: Docusate Sodium (Colace Liquid -) 100 mg PO Q8H PRN PRN Reason: CONSTIPATION Hydrocortisone Sodium Succinate (Solu-Cortef -) 50 mg IVPUSH Q12H [facility] Last Admin: 06/27/20 03:38 Dose: 50 mg Documented by: Propofol (Diprivan -) 1,000,000 mcg in 100 mls @ 2.618 mls/hr IVPB TITR ERMELINDA; Protocol Last Admin: 06/27/20 09:00 Dose: 50 mcg/kg/min, 26.181 mls/hr Documented by: Vasopressin 40 units/ Sodium (Chloride) 100 mls @ 5 mls/hr IVPB ASDIR ERMELINDA; Protocol Last Admin: 06/27/20 06:31 Dose: Not Given Documented by: Norepinephrine Bitartrate 16, (000 mcg/ Sodium Chloride) 500 mls @ 9.375 mls/hr IV TITR ERMELINDA; Protocol Last Titration: 06/27/20 10:07 Dose: 28 mcg/min, 52.5 mls/hr Documented by: Metronidazole (Flagyl 500mg Premixed Ivpb -) 500 mg in 100 mls @ 100 mls/hr IVPB Q8H-IV ERMELINDA Last Admin: 06/27/20 10:07 Dose: 100 mls/hr Documented by: Cefepime HCl 2 gm/ Dextrose 100 mls @ 200 mls/hr IVPB BID ERMELINDA Last Admin: 06/27/20 09:00 Dose: 200 mls/hr Documented by: Midazolam HCl (Midazolam 100mg/100ml-0.9%Nacl) 100 mg in 100 mls @ 1 mls/hr IVPB TITR ERMELINDA; Protocol Fentanyl (Sublimaze Ivpb) 500 mcg in 100 mls @ 0.2 mls/hr IVPB TITR ERMELINDA Last Admin: 06/27/20 06:30 Dose: 100 mcg/hr, 20 mls/hr Documented by: Vancomycin HCl 1,000 mg/ (Dextrose) 250 mls @ 166.667 mls/hr IVPB ONCE ONE; Pr otocol Stop: 06/27/20 11:12 Pantoprazole Sodium (Protonix Iv) 40 mg IVPUSH DAILY ERMELINDA Last Admin: 06/27/20 09:00 Dose: 40 mg Documented by: Polyethylene Glycol (Miralax (For Daily Use) -) 17 gm PO BID ERMELINDA Last Admin: 06/27/20 09:01 Dose: Not Given Documented by: ASSESSMENT AND PLAN: Acute Hypoxic Respiratory Failure AML Tumor Lysis Syndrome Shock - ?Septic Acute Kidney Injury Hyperkalemia improved Anemia/Thrombocytopenia HTN Hyperlipidemia - antibiotics per ID - monitor urine output, creatinine - titrate pressors to maintain MAP >65 - taper stress dose steroids - titrate FiO2 to keep SpO2 >90% - continue volume assist control - daily sedation vacations to assess mental status - enteral feeds - DVT/GI prophylaxis - continue ICU monitoring - continue discussions regarding goals of care critical care time spent in reviewing chart, evaluating patient and formulating plan 35 min
[2020-06-27] MEDS ORDERED: VASOPRESSIN 20 UNITS/ML VIAL IV ONE (10:16)
--- NOTE | 2020-06-27 10:47 | PN ---
Progress Note (short form) - Note Progress Note: RENAL Pt remains intubated unable to provide a history comfortable Last Vital Signs Temp Pulse Resp BP Pulse Ox 97.8 F 87 25 H 77/44 L 100 06/27/20 08:00 06/27/20 10:25 06/27/20 08:25 06/27/20 10:25 06/27/20 08:41 lungs bilat air entry cvs s1s2 rr abd soft ext +edema neuro sedated CBC, BMP 06/27/20 06:00 06/27/20 06:00 Current Medications Generic Name Dose Route Start Last Admin Trade Name Freq PRN Reason Stop Dose Admin Acetaminophen 1,000 mg 06/26/20 12:29 06/26/20 13:01 Ofirmev Injection - IVPB 06/27/20 12:29 1,000 mg Q8H PRN Administration FEVER Allopurinol 300 mg 06/20/20 10:00 06/27/20 09:00 Zyloprim - PO 300 mg DAILY ERMELINDA Administration Amino Acids 30 ml 06/22/20 17:30 06/27/20 09:00 Prosource No Carb Liquid Pkt PO 30 ml BID@0800,1730 ERMELINDA Administration Artificial Tears 1 drop 06/20/20 10:00 06/27/20 09:00 Artificial Tears OU 1 drop DAILY ERMELINDA Administration Atorvastatin Calcium 20 mg 06/19/20 22:00 06/26/20 23:36 Lipitor - PO 20 mg HS ERMELINDA Administration Docusate Sodium 100 mg 06/22/20 08:55 Colace Liquid - PO Q8H PRN CONSTIPATION Hydrocortisone Sodium Succinate 50 mg 06/24/20 13:15 06/27/20 03:38 Solu-Cortef - IVPUSH 50 mg Q12H ERMELINDA Administration Propofol 1,000,000 mcg in 100 mls @ 2.618 mls/hr 06/20/20 00:30 06/27/20 09:00 Diprivan - IVPB 50 mcg/kg/min TITR ERMELINDA 26.181 mls/hr Administration Protocol 5 MCG/KG/MIN Vasopressin 40 units/ Sodium 100 mls @ 5 mls/hr 06/20/20 06:30 06/27/20 10:25 Chloride IVPB 2 units/hr ASDIR ERMELINDA 5 mls/hr Administration Protocol 2 UNITS/HR Norepinephrine Bitartrate 16, 500 mls @ 9.375 mls/hr 06/20/20 08:00 06/27/20 10:07 000 mcg/ Sodium Chloride IV 28 mcg/min TITR ERMELINDA 52.5 mls/hr Titration Protocol 5 MCG/MIN Metronidazole 500 mg in 100 mls @ 100 mls/hr 06/21/20 18:00 06/27/20 10:07 Flagyl 500mg Premixed Ivpb - IVPB 100 mls/hr Q8H-IV ERMELINDA Administration Cefepime HCl 2 gm/ Dextrose 100 mls @ 200 mls/hr 06/22/20 22:00 06/27/20 09:00 IVPB 200 mls/hr BID ERMELINDA Administration Midazolam HCl 100 mg in 100 mls @ 1 mls/hr 06/26/20 22:30 Midazolam 100mg/100ml-0.9%Nacl IVPB TITR ERMELINDA Protocol 1 MG/HR Fentanyl 500 mcg in 100 mls @ 0.2 mls/hr 06/27/20 06:04 06/27/20 06:30 Sublimaze Ivpb IVPB 100 mcg/hr TITR ERMELINDA 20 mls/hr Administration 1 MCG/HR Vancomycin HCl 1,000 mg in 250 mls @ 166.667 mls/hr 06/27/20 11:00 Vancomycin (Pre-Docked) IVPB 06/27/20 12:29 ONCE ONE Protocol Pantoprazole Sodium 40 mg 06/21/20 10:00 06/27/20 09:00 Protonix Iv IVPUSH 40 mg DAILY ERMELINDA Administration Polyethylene Glycol 17 gm 06/19/20 22:00 06/27/20 09:01 Miralax (For Daily Use) - PO Not Given BID ERMELINDA Impression 1. CKD 2. CML 3. AML 4. pleural effusions 5. htn 6. tumor lysis- seems better, not hyperkalemic or hyperphosphatemic 7. shadi 8. hyperkalemia 9. acuter resp failure 10 SHADI probably from low bp which is better Plan - vent support - monitor lytes - monitor output -renvela is off, - uric acid loren so would not dc allopurinol - cont pressors to map 65 - oncology follow up noted - received rasburicase - replace k, MV
[2020-06-27] MEDS ORDERED: VANCOMYCIN 1 GRAM (PRE-DOCKED) 1,000 MG/250 ML BAG IVPB ONE (11:00)
[2020-06-27] MEDS: KCL 10 MEQ IVPB 10 MEQ/100 ML INFUS.BAG IVPB SCH ×3 (12:08→13:56)
[2020-06-27] MEDS: NOREPINEPHRINE BITARTRATE 16,000 MCG in SODIUM CHLORIDE 484 ML IV SCH (13:14)
[2020-06-27] MEDS: MIDAZOLAM IN 0.9 % SOD.CHLORID 100 MG/100 ML PLAST..BAG IVPB SCH ×2 (13:17→22:30)
--- NOTE | 2020-06-27 15:47 | PN ---
Physical Exam: SUBJECTIVE: Patient seen and examined. 70 yo male pmh of htn, hld, 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 Pt intubatedd on 06/19 for hypoxic resp failure OBJECTIVE: Patient sedated and intubated. Vital Signs Period Temp Pulse Resp BP Sys/Carrillo Pulse Ox Last 24 Hr 97.5 F-101.7 F 83-127 17-26 77-143/44-70 95-100 GENERAL: The patient is intubated and sedated . HEAD: Normal with no signs of trauma. ENT: Ears normal, intubated NECK: Trachea midline, supple. LUNGS: bilateral rhonchi. HEART: Regular rate and rhythm, S1, S2 without murmur, rub or gallop. ABDOMEN: distended , no sign of tenderness on exam, no splenomegaly EXTREMITIES: 2+ pulses b/l lower ext 2+ edema. RUE + for edema SKIN: Warm, dry, no rashes or lesions noted Laboratory Results - last 24 hr 06/26/20 06/27/20 06/27/20 22:54 06:00 06:00 WBC 97.9 H* 109.0 H* RBC 2.93 L 2.96 L Hgb 7.6 L 7.6 L Hct 25.1 L 25.4 L MCV 85.8 85.7 MCH 26.0 25.6 L MCHC 30.3 L 29.8 L RDW 19.7 H 19.6 H Plt Count 36 L* D 33 L* MPV 9.2 9.4 Absolute Neuts (auto) 92.3 H 63.7 H Neutrophils % 94.3 H D 58.5 D Neutrophils % (Manual) 76.0 58.5 D Band Neutrophils % 5.0 1.0 Lymphocytes % 4.2 L D 5.3 L D Lymphocytes % (Manual) 4.0 L 3.2 L Monocytes % 1.2 L D 35.8 H D Monocytes % (Manual) 6 6 Eosinophils % 0.2 D 0.2 Eosinophils % (Manual) 7.4 H Basophils % 0.1 0.2 Basophils % (Manual) 0.0 Myelocytes % (Man) 10 H D Promyelocytes % (Man) 1 D Blast Cells % (Manual) 7 H D 10 H D Nucleated RBC % 0 0 Metamyelocytes 2 D 2 Hypochromia 1+ 0 Platelet Estimate Decreased Decreased Polychromasia 1+ Poikilocytosis 0 Anisocytosis 2+ 2+ Microcytosis 2+ 2+ Macrocytosis 0 PT with INR 17.30 H INR 1.46 H PTT (Actin FS) 30.1 Fibrinogen D-Dimer Sodium Potassium Chloride Carbon Dioxide Anion Gap BUN Creatinine Est GFR (CKD-EPI)AfAm Est GFR (CKD-EPI)NonAf Random Glucose Uric Acid Calcium Phosphorus Magnesium Total Bilirubin AST ALT Alkaline Phosphatase LD Total Total Protein Albumin 06/27/20 06/27/20 06:00 06:00 WBC RBC Hgb Hct MCV MCH MCHC RDW Plt Count MPV Absolute Neuts (auto) Neutrophils % Neutrophils % (Manual) Band Neutrophils % Lymphocytes % Lymphocytes % (Manual) Monocytes % Monocytes % (Manual) Eosinophils % Eosinophils % (Manual) Basophils % Basophils % (Manual) Myelocytes % (Man) Promyelocytes % (Man) Blast Cells % (Manual) Nucleated RBC % Metamyelocytes Hypochromia Platelet Estimate Polychromasia Poikilocytosis Anisocytosis Microcytosis Macrocytosis PT with INR INR PTT (Actin FS) Fibrinogen 402.0 D-Dimer 8759 H Sodium 138 Potassium 3.0 L Chloride 105 Carbon Dioxide 22 Anion Gap 11 BUN 72.2 H Creatinine 1.7 H Est GFR (CKD-EPI)AfAm 46.00 Est GFR (CKD-EPI)NonAf 39.69 Random Glucose 128 H Uric Acid 5.8 Calcium 7.8 L Phosphorus 3.6 Magnesium 2.0 Total Bilirubin 1.3 H AST 33 ALT 9 L Alkaline Phosphatase 152 H LD Total 459 H Total Protein 5.8 L Albumin 2.3 L Active Medications Generic Name Dose Route Start Last Admin Trade Name Jake PRN Reason Stop Dose Admin Allopurinol 300 mg 06/20/20 10:00 06/27/20 09:00 Zyloprim - PO 300 mg DAILY ERMELINDA Administration Amino Acids 30 ml 06/22/20 17:30 06/27/20 09:00 Prosource No Carb Liquid Pkt PO 30 ml BID@0800,1730 ERMELINDA Administration Artificial Tears 1 drop 06/20/20 10:00 06/27/20 09:00 Artificial Tears OU 1 drop DAILY ERMELINDA Administration Atorvastatin Calcium 20 mg 06/19/20 22:00 06/26/20 23:36 Lipitor - PO 20 mg HS ERMELINDA Administration Docusate Sodium 100 mg 06/22/20 08:55 Colace Liquid - PO Q8H PRN CONSTIPATION Hydrocortisone Sodium Succinate 50 mg 06/24/20 13:15 06/27/20 13:17 Solu-Cortef - IVPUSH 50 mg Q12H ERMELINDA Administration Propofol 1,000,000 mcg in 100 mls @ 2.618 mls/hr 06/20/20 00:30 06/27/20 13:45 Diprivan - IVPB 50 mcg/kg/min TITR ERMELINDA 26.181 mls/hr Administration Protocol 5 MCG/KG/MIN Vasopressin 40 units/ Sodium 100 mls @ 5 mls/hr 06/20/20 06:30 06/27/20 10:25 Chloride IVPB 2 units/hr ASDIR ERMELINDA 5 mls/hr Administration Protocol 2 UNITS/HR Norepinephrine Bitartrate 16, 500 mls @ 9.375 mls/hr 06/20/20 08:00 06/27/20 13:14 000 mcg/ Sodium Chloride IV 24 mcg/min TITR ERMELINDA 45 mls/hr Administration Protocol 5 MCG/MIN Metronidazole 500 mg in 100 mls @ 100 mls/hr 06/21/20 18:00 06/27/20 10:07 Flagyl 500mg Premixed Ivpb - IVPB 100 mls/hr Q8H-IV ERMELINDA Administration Cefepime HCl 2 gm/ Dextrose 100 mls @ 200 mls/hr 06/22/20 22:00 06/27/20 09:00 IVPB 200 mls/hr BID ERMELINDA Administration Midazolam HCl 100 mg in 100 mls @ 1 mls/hr 06/26/20 22:30 06/27/20 13:17 Midazolam 100mg/100ml-0.9%Nacl IVPB Not Given TITR ERMELINDA Protocol 1 MG/HR Fentanyl 500 mcg in 100 mls @ 0.2 mls/hr 06/27/20 06:04 06/27/20 12:08 Sublimaze Ivpb IVPB 100 mcg/hr TITR ERMELINDA 20 mls/hr Administration 1 MCG/HR Pantoprazole Sodium 40 mg 06/21/20 10:00 06/27/20 09:00 Protonix Iv IVPUSH 40 mg DAILY ERMELINDA Administration Polyethylene Glycol 17 gm 06/19/20 22:00 06/27/20 09:01 Miralax (For Daily Use) - PO Not Given BID ERMELINDA ASSESSMENT/PLAN: 70 yo male pmh of htn, hld, 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 Pt intubatedd on 06/19 for hypoxic resp failure Neuro -Pt sedated on Fentanyl, Midazolam and propofol -CAT scan to be done when stable -Daily sedation vacations to assess mental status Cardio: -Last echo of 06/15/20 normal -Edema likly due to low oncortic pressure from hypoalbuminemia -Frusemide dc -Edema may be fixed with transfusion due to third spacing -Pt on levo 10 mcg due to hypotension pt will monitor for MAP<65 -HTN: Metoprolol and lisinopril dc -Hyperlipidemia: Atorvastatin dc Resp: #ACUTE HYPOXIC RESPIRATORY FAILURE - Pt vented on RR 24; TV: 480 PEEP 6 FiO2 50% Pplat 8 - Monitor LDH, uric acid - titrate pressors to maintain MAP >65 - taper stress dose steroids to q12hr - titrate FiO2 to keep SpO2 >90% - continue volume assist control Renal: #Acute Kidney Injury -Nephro consulted and recommendations made -renal function stable -d/c shiley cath on 06/23 -replace potassium monitor K and phos prn -dc renvela, would also dc allopurinol at this point -Phos binder dc. Allopurinol will wait on heme consult. - monitor urine output, creatinine - titrate pressors to maintain MAP >65 - taper stress dose steroids Heme Onc: -Heme Onc consulted and recommendations made on CML to AML. 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 causing inc K and phos -Will follow Uric acid and LDH due to tumor lysis syndrome and treat accordingly -Pt on 300 mg of allopurinorl -Renvela for elevated phos -Blood cultures: no growth obtained -Anemia: Transfuse prn to keep Hgb < 7 -Transfuse if bleeding or platelets < 30,000 as patient febrile and platelets dysfunctional- Pt was given on pack of platelets (06/25) (06/26) -monitor CBC, CMP, LDH, uric acid daily, and DIC labs as well - PT/PTT/fibrinogen GI - Pt feeds restarted. On Neppro ID -ON cefepime 2g BID (started 06/22) flaggyl 500 mg q8hrs (06/21) and vanco 1 gm QD Day 6 -Vanco dc due to observed therapeutic peak - Tylenol prn 1000 every 8 hrs - Blood cultures recultured on 06/20, no organism growth obtained FEN: - Continue volum assist - Hypokalemia improved. Continue to monitor lytes and replete prn - Continue enteral feed Prophylaxis - Heparin 5000 TID - Protonix for PUD #DISPOSITION: -Continue ICU monitoring -Continue discussion regarding goal of care Visit type - Emergency Visit Emergency Visit: No - New Patient This patient is new to me today: Yes Date on this admission: 06/27/20 - Critical Care Critical Care patient: Yes Total Critical Care Time (in minutes): 720 Critical Care Statement: The care of this patient involved high complexity decision making to prevent further life threatening deterioration of the patient's condition and/or to evaluate & treat vital organ system(s) failure or risk of failure. - Medication Review Med list reviewed for High Risk Meds patients 65 and older: Yes ATTENDING PHYSICIAN STATEMENT I saw and evaluated the patient. I reviewed the resident's note and discussed the case with the resident. I agree with the resident's findings and plan as documented. SUBJECTIVE: OBJECTIVE: ASSESSMENT AND PLAN:
[2020-06-27] MEDS: ATORVASTATIN CA 20 MG TABLET (FP) PO SCH (21:30)
--- NOTE | 2020-06-27 21:34 | PN ---
Progress Note (short form) - Note Progress Note: Patient seen in follow up. Fever 101 last night - afebrile since 10pm last night. Otherwise so significant events overnight. Back on pressors at this time. Inpatient Meds reviewed. Current Medications Generic Name Dose Route Start Last Admin Trade Name Freq PRN Reason Stop Dose Admin Allopurinol 300 mg 06/20/20 10:00 06/27/20 09:00 Zyloprim - PO 300 mg DAILY ERMELINDA Administration Amino Acids 30 ml 06/22/20 17:30 06/27/20 18:22 Prosource No Carb Liquid Pkt PO 30 ml BID@0800,1730 ERMELINDA Administration Artificial Tears 1 drop 06/20/20 10:00 06/27/20 09:00 Artificial Tears OU 1 drop DAILY ERMELINDA Administration Atorvastatin Calcium 20 mg 06/19/20 22:00 06/27/20 21:30 Lipitor - PO 20 mg HS ERMELINDA Administration Docusate Sodium 100 mg 06/22/20 08:55 Colace Liquid - PO Q8H PRN CONSTIPATION Hydrocortisone Sodium Succinate 50 mg 06/24/20 13:15 06/27/20 13:17 Solu-Cortef - IVPUSH 50 mg Q12H ERMELINDA Administration Propofol 1,000,000 mcg in 100 mls @ 2.618 mls/hr 06/20/20 00:30 06/27/20 17:54 Diprivan - IVPB 50 mcg/kg/min TITR ERMELINDA 26.181 mls/hr Administration Protocol 5 MCG/KG/MIN Vasopressin 40 units/ Sodium 100 mls @ 5 mls/hr 06/20/20 06:30 06/27/20 10:25 Chloride IVPB 2 units/hr ASDIR ERMELINDA 5 mls/hr Administration Protocol 2 UNITS/HR Norepinephrine Bitartrate 16, 500 mls @ 9.375 mls/hr 06/20/20 08:00 06/27/20 13:14 000 mcg/ Sodium Chloride IV 24 mcg/min TITR ERMELINDA 45 mls/hr Administration Protocol 5 MCG/MIN Metronidazole 500 mg in 100 mls @ 100 mls/hr 06/21/20 18:00 06/27/20 18:22 Flagyl 500mg Premixed Ivpb - IVPB 100 mls/hr Q8H-IV ERMELINDA Administration Cefepime HCl 2 gm/ Dextrose 100 mls @ 200 mls/hr 06/22/20 22:00 06/27/20 21:30 IVPB 200 mls/hr BID ERMELINDA Administration Midazolam HCl 100 mg in 100 mls @ 1 mls/hr 06/26/20 22:30 06/27/20 13:17 Midazolam 100mg/100ml-0.9%Nacl IVPB Not Given TITR ERMELINDA Protocol 1 MG/HR Fentanyl 500 mcg in 100 mls @ 0.2 mls/hr 06/27/20 06:04 06/27/20 12:08 Sublimaze Ivpb IVPB 100 mcg/hr TITR ERMELINDA 20 mls/hr Administration 1 MCG/HR Pantoprazole Sodium 40 mg 06/21/20 10:00 06/27/20 09:00 Protonix Iv IVPUSH 40 mg DAILY ERMELINDA Administration Polyethylene Glycol 17 gm 06/19/20 22:00 06/27/20 21:31 Miralax (For Daily Use) - PO Not Given BID ERMELINDA On Examination: Last Vital Signs Temp Pulse Resp BP Pulse Ox 99.9 F H 88 26 H 113/51 L 100 06/27/20 18:00 06/27/20 18:00 06/27/20 20:05 06/27/20 18:00 06/27/20 20:05 General: Sedated, intubated, ventillated. Labs: CBC, BMP 06/27/20 06:00 06/27/20 06:00 Assessment. CMML with blastic crisis/AML conversion. S/p 5 days hypomethylating agent, now with hypotension, requiring inotropic support, intubated and ventilated. Concern about TLS previously, s/p rasburicase X2 and now on allopurinol. Ongoing fevers, unknown source (possibly 'tumor fevers'), cultures negative, on empiric broad-spectrum abics. Bump in creatinine today noted, with concern. Concerned about rising blast count - will start HU in attempt to suppress blastemia, (which may increase risk of leukostatic complications if not addressed) Continue supportive care - blood product support according to parameters delineated in prior note. Prognosis remains dismal. Please call if questions.
[2020-06-27] MEDS: HYDROXYUREA 500 MG CAPSULE PO SCH (22:46)
[2020-06-28] MEDS: HYDROCORTISONE SOD SUCCINATE 100 MG/2 ML VIAL IVPUSH SCH ×2 (00:58→15:00)
[2020-06-28] MEDS: PROPOFOL 1,000,000 MCG/100 ML VIAL IVPB SCH ×4 (03:00→18:37)
[2020-06-28] MEDS: VASOPRESSIN 40 UNITS in SODIUM CHLORIDE 98 ML IVPB SCH (05:43)
[2020-06-28] MEDS: FENTANYL NS IVPB 500 MCG/100 ML BAG IVPB SCH ×2 (06:04→15:53)
[2020-06-28 06:27] LABS: HEMATOCRIT 23.8 % (35.4-49); HEMOGLOBIN 7.3 GM/dL (11.7-16.9); LYMPH % 4.9 % (8-40); MCH 26.3 pg (25.7-33.7); MCHC 30.9 g/dl (32.0-35.9); MEAN CELL VOLUME 85.2 fl (80-96); MEAN PLT VOLUME 11.5 fl (7.5-11.1); MONO % 45.1 % (3.8-10.2); RBC 2.79 M/mm3 (4.00-5.60); RDW 19.3 % (11.9-15.9)
[2020-06-28 06:32] LABS: ARTERIAL BLD GAS O2 SATURATION 94.5 mmHg (95-98); ARTERIAL BLOOD GAS BASE EXCESS -10.3 mmol/L (-2-2); ARTERIAL BLOOD GAS PO2 79.1 mmHg (80-100); ARTERIAL BLOOD GAS pH 7.288 (7.350-7.450)
[2020-06-28 06:33] LABS: WHITE BLOOD COUNT 80.8 K/mm3 (4.0-10.0)
[2020-06-28 06:34] LABS: PLATELET COUNT 28 K/MM3 (134-434)
[2020-06-28 06:46] LABS: ALLENS TEST POSITIVE
[2020-06-28 06:47] LABS: VENT MODE A/C; VENT RATE 24
[2020-06-28 06:55] LABS: ALBUMIN 2.1 g/dl (3.4-5.0); BILIRUBIN,TOTAL 0.8 mg/dL (0.2-1); BLOOD UREA NITROGEN 89.5 mg/dL (7-18); CALCIUM 7.7 mg/dL (8.5-10.1); CREATININE 2.5 mg/dL (0.55-1.3); PHOSPHOROUS 5.4 mg/dL (2.5-4.9); POTASSIUM 3.9 mmol/L (3.5-5.1); TOT PROT 5.6 g/dl (6.4-8.2); URIC ACID 6.6 mg/dL (2.6-7.2)
[2020-06-28 06:57] LABS: INR 1.57 (0.83-1.09); PROTHROMBIN TIME (PATIENT) 18.6 SEC (9.7-13.0)
[2020-06-28 07:01] LABS: ACTIVATED PTT 30.9 SECONDS (25.2-36.5)
[2020-06-28] MEDS: AMINO ACIDS/PROTEIN HYDROLYS 30 ML LIQUID.PKT PO SCH ×2 (09:57→18:39)
[2020-06-28] MEDS: CEFEPIME 2 GM in DEXTROSE 5%-WATER 100 ML IVPB SCH (10:01)
[2020-06-28] MEDS: POLYETHYLENE GLYCOL 3350 119 GM BTL PO SCH ×2 (10:02→21:01)
[2020-06-28] MEDS: HYDROXYUREA 500 MG CAPSULE PO SCH ×2 (10:02→20:59)
[2020-06-28] MEDS: ALLOPURINOL 300 MG TABLET (FP) PO SCH (10:02)
[2020-06-28] MEDS: PANTOPRAZOLE SODIUM 40 MG VIAL IVPUSH SCH (10:03)
[2020-06-28] MEDS: ARTIFICIAL TEARS (POLYVINYL ALCOHOL) OPTH DROPS OU SCH (10:03)
[2020-06-28] MEDS ORDERED: FENTANYL IVPB 500 MCG/100 ML BAG IVPB ONE ×2 (10:52→15:25)
[2020-06-28 11:19] LABS: ANISOCYTOSIS 2+; MACROCYTOSIS 0; PLATELET ESTIMATE DECREASED
--- NOTE | 2020-06-28 12:02 | PN ---
Physical Exam: SUBJECTIVE: Patient seen and examined. Intubated sedated. Still with low grade fevers. On levophed and vasopressin. OBJECTIVE: Vital Signs Temperature 100.3 F H 06/28/20 06:00 Pulse Rate 95 H 06/28/20 08:23 Respiratory Rate 27 H 06/28/20 08:23 Blood Pressure 96/52 L 06/28/20 06:00 O2 Sat by Pulse Oximetry (%) 99 06/28/20 08:23 GENERAL: The patient is intubated, sedated ENT: dry mucous membranes, ET tube in place NECK: supple LUNGS: vented breath sounds b/l, decreased breath sounds bilateral bases HEART: Regular rate and rhythm, S1, S2 ABDOMEN: distended, does not grimace on palpation, hypoactive bowel sounds EXTREMITIES: 2+ pulses, warm, well-perfused, +2 b/l pitting edema SKIN: Warm, dry, normal turgor Laboratory Results - last 24 hr 06/24/20 06/28/20 06/28/20 17:00 05:50 06:00 WBC RBC Hgb Hct MCV MCH MCHC RDW Plt Count MPV Absolute Neuts (auto) Neutrophils % Neutrophils % (Manual) Band Neutrophils % Lymphocytes % Lymphocytes % (Manual) Monocytes % Monocytes % (Manual) Eosinophils % Eosinophils % (Manual) Basophils % Basophils % (Manual) Myelocytes % (Man) Promyelocytes % (Man) Blast Cells % (Manual) Nucleated RBC % Metamyelocytes Hypochromia Platelet Estimate Polychromasia Poikilocytosis Anisocytosis Microcytosis Macrocytosis PT with INR INR PTT (Actin FS) Fibrinogen D-Dimer Anticoagulation Therapy No Result Required. Puncture Site Right radial Patient Temperature No Result Required. ABG pH 7.288 L ABG pCO2 32.90 L ABG pO2 79.1 L ABG HCO3 15.4 L ABG O2 Sat (Measured) 94.5 L ABG O2 Content No Result Required. ABG Base Excess -10.3 L Rhett Test Positive Patient On Oxygen Yes O2 Delivery Device Vent Oxygen Flow Rate 50% Vent Mode A/c Vent Rate 24 Mechanical Rate Yes PEEP 6.0 Pressure Support Vent 480 Sodium Potassium Chloride Carbon Dioxide Anion Gap BUN Creatinine Est GFR (CKD-EPI)AfAm Est GFR (CKD-EPI)NonAf Random Glucose Uric Acid Calcium Phosphorus Magnesium Total Bilirubin AST ALT Alkaline Phosphatase LD Total Total Protein Albumin Random Vancomycin 21.5 Blood Type O POSITIVE Antibody Screen Negative Crossmatch See Detail 06/28/20 06/28/20 06/28/20 06:00 06:00 06:00 WBC 80.8 H* RBC 2.79 L Hgb 7.3 L Hct 23.8 L MCV 85.2 MCH 26.3 MCHC 30.9 L RDW 19.3 H Plt Count 28 L* MPV 11.5 H D Absolute Neuts (auto) 40.4 H Neutrophils % 50.0 Neutrophils % (Manual) 41.5 L D Band Neutrophils % 1.1 Lymphocytes % 4.9 L Lymphocytes % (Manual) 6.4 L D Monocytes % 45.1 H Monocytes % (Manual) 30 H D Eosinophils % 0.0 D Eosinophils % (Manual) 0.0 D Basophils % 0.0 Basophils % (Manual) 0.0 Myelocytes % (Man) 4 H D Promyelocytes % (Man) 4 H D Blast Cells % (Manual) 5 H D Nucleated RBC % 3 H Metamyelocytes 7 H D Hypochromia 0 Platelet Estimate Decreased Polychromasia 1+ Poikilocytosis 0 Anisocytosis 2+ Microcytosis 2+ Macrocytosis 0 PT with INR 18.60 H INR 1.57 H PTT (Actin FS) 30.9 Fibrinogen D-Dimer Anticoagulation Therapy Puncture Site Patient Temperature ABG pH ABG pCO2 ABG pO2 ABG HCO3 ABG O2 Sat (Measured) ABG O2 Content ABG Base Excess Rhett Test Patient On Oxygen O2 Delivery Device Oxygen Flow Rate Vent Mode Vent Rate Mechanical Rate PEEP Pressure Support Vent Sodium 136 Potassium 3.9 Chloride 105 Carbon Dioxide 19 L Anion Gap 12 BUN 89.5 H Creatinine 2.5 H Est GFR (CKD-EPI)AfAm 28.86 Est GFR (CKD-EPI)NonAf 24.90 Random Glucose 117 H Uric Acid 6.6 Calcium 7.7 L Phosphorus 5.4 H Magnesium 2.0 Total Bilirubin 0.8 AST 36 ALT 8 L Alkaline Phosphatase 135 H LD Total 453 H Total Protein 5.6 L Albumin 2.1 L Random Vancomycin Blood Type Antibody Screen Crossmatch 06/28/20 06/28/20 06:21 08:45 WBC RBC Hgb Hct MCV MCH MCHC RDW Plt Count MPV Absolute Neuts (auto) Neutrophils % Neutrophils % (Manual) Band Neutrophils % Lymphocytes % Lymphocytes % (Manual) Monocytes % Monocytes % (Manual) Eosinophils % Eosinophils % (Manual) Basophils % Basophils % (Manual) Myelocytes % (Man) Promyelocytes % (Man) Blast Cells % (Manual) Nucleated RBC % Metamyelocytes Hypochromia Platelet Estimate Polychromasia Poikilocytosis Anisocytosis Microcytosis Macrocytosis PT with INR INR PTT (Actin FS) Fibrinogen 420.0 D-Dimer 39614 H Anticoagulation Therapy Puncture Site Patient Temperature ABG pH ABG pCO2 ABG pO2 ABG HCO3 ABG O2 Sat (Measured) ABG O2 Content ABG Base Excess Rhett Test Patient On Oxygen O2 Delivery Device Oxygen Flow Rate Vent Mode Vent Rate Mechanical Rate PEEP Pressure Support Vent Sodium Potassium Chloride Carbon Dioxide Anion Gap BUN Creatinine Est GFR (CKD-EPI)AfAm Est GFR (CKD-EPI)NonAf Random Glucose Uric Acid Calcium Phosphorus Magnesium Total Bilirubin AST ALT Alkaline Phosphatase LD Total Total Protein Albumin Random Vancomycin Blood Type O POSITIVE Antibody Screen Negative Crossmatch Active Medications Generic Name Dose Route Start Last Admin Trade Name Freq PRN Reason Stop Dose Admin Allopurinol 300 mg 06/20/20 10:00 06/28/20 10:02 Zyloprim - PO 300 mg DAILY ERMELINDA Administration Amino Acids 30 ml 06/22/20 17:30 06/28/20 09:57 Prosource No Carb Liquid Pkt PO 30 ml BID@0800,1730 ERMELINDA Administration Artificial Tears 1 drop 06/20/20 10:00 06/28/20 10:03 Artificial Tears OU 1 drop DAILY ERMELINDA Administration Atorvastatin Calcium 20 mg 06/19/20 22:00 06/27/20 21:30 Lipitor - PO 20 mg HS ERMELINDA Administration Docusate Sodium 100 mg 06/22/20 08:55 Colace Liquid - PO Q8H PRN CONSTIPATION Hydrocortisone Sodium Succinate 50 mg 06/24/20 13:15 06/28/20 00:58 Solu-Cortef - IVPUSH 50 mg Q12H ERMELINDA Administration Hydroxyurea 500 mg 06/27/20 22:00 06/28/20 10:02 Hydrea - PO 500 mg BID ERMELINDA Administration Propofol 1,000,000 mcg in 100 mls @ 2.618 mls/hr 06/20/20 00:30 06/28/20 09:57 Diprivan - IVPB 50 mcg/kg/min TITR ERMELINDA 26.181 mls/hr Administration Protocol 5 MCG/KG/MIN Vasopressin 40 units/ Sodium 100 mls @ 5 mls/hr 06/20/20 06:30 06/28/20 05:43 Chloride IVPB 2 units/hr ASDIR ERMELINDA 5 mls/hr Administration Protocol 2 UNITS/HR Norepinephrine Bitartrate 16, 500 mls @ 9.375 mls/hr 06/20/20 08:00 06/28/20 03:10 000 mcg/ Sodium Chloride IV 24 mcg/min TITR ERMELINDA 45 mls/hr Titration Protocol 5 MCG/MIN Metronidazole 500 mg in 100 mls @ 100 mls/hr 06/21/20 18:00 06/28/20 10:01 Flagyl 500mg Premixed Ivpb - IVPB 100 mls/hr Q8H-IV ERMELINDA Administration Cefepime HCl 2 gm/ Dextrose 100 mls @ 200 mls/hr 06/22/20 22:00 06/28/20 10:01 IVPB 200 mls/hr BID ERMELINDA Administration Midazolam HCl 100 mg in 100 mls @ 1 mls/hr 06/26/20 22:30 06/27/20 22:30 Midazolam 100mg/100ml-0.9%Nacl IVPB Not Given TITR ERMELINDA Protocol 1 MG/HR Fentanyl 500 mcg in 100 mls @ 0.2 mls/hr 06/27/20 06:04 06/28/20 06:04 Sublimaze Ivpb IVPB Not Given TITR ERMELINDA 1 MCG/HR Pantoprazole Sodium 40 mg 06/21/20 10:00 06/28/20 10:03 Protonix Iv IVPUSH 40 mg DAILY ERMELINDA Administration Polyethylene Glycol 17 gm 06/19/20 22:00 06/28/20 10:02 Miralax (For Daily Use) - PO Not Given BID ERMELINDA ASSESSMENT/PLAN: Patient is a 70 year old male with past medical history of HTN, HLD, CKD, 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 We have been consulted for further evaluation of CMML. 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 Splenomegaly. -WBC 198k, ANC [id number] on admission -Rasjaretticase 6mg x1 on admission, then Hydrea 1000mg bid started 06/14 -G6PD level not deficient -Allopurinol dose to 300mg daily -Completed 5 doses of Decitabine 06/14 - 06/19 -CT AP 06/18 - Right > Left pleural effusion, marked splenomegaly with perisplenic fluid collection, sigmoid diverticulosis -patient started having fevers with Tmax of 104.7, with rising K and Phos 06/19 -Rasburicase 2nd dose given 06/19, Hydrea held due to ongoing tumor lysis -Intubated 06/19 for hypoxic respiratory failure, Dialysis 06/20 -Renvela for elevated phos -blood cultures negative -continue Cefepime/flagyl -Anemia - Transfuse to keep Hgb < 7 -Transfuse for bleeding or platelets < 20,000 as patient febrile and platelets dysfunctional -WBC, with blast trending up, Hydrea 500mg bid re started 06/27 -monitor CBC, CMP, LDH, uric acid daily, and DIC labs as well - PT/PTT/fibrinogen -pulm consulted. recs appreciated. -cardio consulted. recs appreciated. -ID consulted. recs appreciated. -nephro consulted. recs appreciated. Visit type - Emergency Visit Emergency Visit: Yes ED Registration Date: 06/14/20 Care time: The patient presented to the Emergency Department on the above date and was hospitalized for further evaluation of their emergent condition. - New Patient This patient is new to me today: No - Critical Care Critical Care patient: Yes Total Critical Care Time (in minutes): 35 Critical Care Statement: The care of this patient involved high complexity decision making to prevent further life threatening deterioration of the patient's condition and/or to evaluate & treat vital organ system(s) failure or risk of failure. - Medication Review Med list reviewed for High Risk Meds patients 65 and older: Yes ATTENDING PHYSICIAN STATEMENT I saw and evaluated the patient. I reviewed the resident's note and discussed the case with the resident. I agree with the resident's findings and plan as documented. SUBJECTIVE: OBJECTIVE: ASSESSMENT AND PLAN:
--- NOTE | 2020-06-28 12:10 | PN ---
Progress Note (short form) - Note Progress Note: remains intubated intermittent fevers worsening renal failure pressors being tapered rising wbc rising LDH Vital Signs Period Temp Pulse Resp BP Sys/Carrillo Pulse Ox Last 24 Hr 99.1 F-100.3 F 85-109 20-27 96-124/50-66 98-100 cor-rrr lungs decreased bs at bases abd soft,nt ext +edema CBC, BMP 06/28/20 06:00 06/28/20 06:00 Microbiology 06/22/20 15:30 Blood - Peripheral Venous Blood Culture - Final NO GROWTH AFTER 5 DAYS INCUBATION 06/22/20 15:30 Blood - Peripheral Venous Blood Culture - Final NO GROWTH AFTER 5 DAYS INCUBATION 06/20/20 15:00 Blood - Peripheral Venous Blood Culture - Final NO GROWTH AFTER 5 DAYS INCUBATION 06/19/20 21:36 Blood - Peripheral Venous Blood Culture - Final NO GROWTH AFTER 5 DAYS INCUBATION 06/20/20 11:50 Sputum - Endotrachea Suction/Ventilator Gram Stain - Final 06/20/20 11:50 Sputum - Endotrachea Suction/Ventilator Sputum Culture - Final NORMAL RESPIRATORY LYNDA 06/20/20 10:50 Urine - Urine - Catheterized Urine Culture - Final NO GROWTH OBTAINED 06/20/20 10:50 Urine For Antigen Detection Legionella Antigen - Final 06/20/20 10:50 Urine For Antigen Detection Streptococcus pneumoniae Antigen (M - Final 06/14/20 01:10 Blood - Peripheral Venous Blood Culture - Final NO GROWTH AFTER 5 DAYS INCUBATION 06/14/20 01:10 Blood - Peripheral Venous Blood Culture - Final NO GROWTH AFTER 5 DAYS INCUBATION 06/14/20 01:10 Urine - Urine Clean Catch Urine Culture - Final Staphylococcus Haemolyticus Group D Strep Or Entero Coccus a/p fevers- resp failure AML s/p chemo-rising wbc, rising ldh, stated on hydroxyurea yesterday renal function worsening tumorlysis syndrome anemia thrombocytopenia pen allergy adjust antiiboitcs for renal failure reculture Problem List - Problems (1) AML (acute myeloblastic leukemia) Code(s): C92.00 - ACUTE MYELOBLASTIC LEUKEMIA, NOT HAVING ACHIEVED REMISSION (2) Shortness of breath Code(s): R06.02 - SHORTNESS OF BREATH
[2020-06-28] MEDS ORDERED: CEFEPIME 1 GM in DEXTROSE 5%-WATER - 50 ML IVPB SCH (12:15)
[2020-06-28] MEDS ORDERED: SODIUM CHLORIDE 0.9% 500 ML INFUS.BAG IV ONE (12:17)
--- NOTE | 2020-06-28 12:21 | PN ---
Teaching Attending Note Name of Resident: Rudy Sanabria ATTENDING PHYSICIAN STATEMENT I saw and evaluated the patient. I reviewed the resident's note and discussed the case with the resident. I agree with the resident's findings and plan as documented. SUBJECTIVE: Pt seen and examined in the ICU. Remains intubated, sedated on levophed gtt 24mcgs vasopressin 2 units. Remains febrile, cultures negative. Vented on volume assist control with 50% FiO2. OBJECTIVE: Vital Signs Period Temp Pulse Resp BP Sys/Carrillo Pulse Ox Last 24 Hr 99.1 F-100.3 F 85-109 20-27 96-124/50-66 98-100 Intake & Output 06/25/20 06/26/20 06/27/20 06/28/20 23:59 23:59 23:59 23:59 Intake Total 2547.2 3170.1 3738 1014 Output Total 2100 1520 1100 425 Balance 447.2 1650.1 2638 589 Weight 81.6 kg 82.282 kg 85.729 kg 85.23 kg Gen: intubated, sedated Heart: RRR Lung: scattered rhonchi Abd: soft, nontender Ext: + edema CBC, BMP 06/28/20 06:00 06/28/20 06:00 Active Medications Allopurinol (Zyloprim -) 300 mg PO DAILY [facility] Last Admin: 06/28/20 10:02 Dose: 300 mg Documented by: Amino Acids (Prosource No Carb Liquid Pkt) 30 ml PO BID@0800,1730 [facility] Last Admin: 06/28/20 09:57 Dose: 30 ml Documented by: Artificial Tears (Artificial Tears) 1 drop OU DAILY [facility] Last Admin: 06/28/20 10:03 Dose: 1 drop Documented by: Atorvastatin Calcium (Lipitor -) 20 mg PO HS [facility] Last Admin: 06/27/20 21:30 Dose: 20 mg Documented by: Docusate Sodium (Colace Liquid -) 100 mg PO Q8H PRN PRN Reason: CONSTIPATION Hydrocortisone Sodium Succinate (Solu-Cortef -) 50 mg IVPUSH Q12H [facility] Last Admin: 06/28/20 00:58 Dose: 50 mg Documented by: Hydroxyurea (Hydrea -) 500 mg PO BID [facility] Last Admin: 06/28/20 10:02 Dose: 500 mg Documented by: Propofol (Diprivan -) 1,000,000 mcg in 100 mls @ 2.618 mls/hr IVPB TITR [facility]; Protocol Last Admin: 06/28/20 09:57 Dose: 50 mcg/kg/min, 26.181 mls/hr Documented by: Vasopressin 40 units/ Sodium (Chloride) 100 mls @ 5 mls/hr IVPB ASDIR [facility]DA; Protocol Last Admin: 06/28/20 05:43 Dose: 2 units/hr, 5 mls/hr Documented by: Norepinephrine Bitartrate 16, (000 mcg/ Sodium Chloride) 500 mls @ 9.375 mls/hr IV TITR ER[facility]ELINDA; Protocol Last Titration: 06/28/20 03:10 Dose: 24 mcg/min, 45 mls/hr Documented by: Metronidazole (Flagyl 500mg Premixed Ivpb -) 500 mg in 100 mls @ 100 mls/hr IVPB Q8H-IV [facility] Last Admin: 06/28/20 10:01 Dose: 100 mls/hr Documented by: Midazolam HCl (Midazolam 100mg/100ml-0.9%Nacl) 100 mg in 100 mls @ 1 mls/hr IVPB TITR [facility]; Protocol Last Admin: 06/27/20 22:30 Dose: Not Given Documented by: Fentanyl (Sublimaze Ivpb) 500 mcg in 100 mls @ 0.2 mls/hr IVPB TITR [facility] Last Admin: 06/28/20 06:04 Dose: Not Given Documented by: Cefepime HCl 1 gm/ Dextrose 50 mls @ 100 mls/hr IVPB BID [facility]; Protocol Pantoprazole Sodium (Protonix Iv) 40 mg IVPUSH DAILY [facility] Last Admin: 06/28/20 10:03 Dose: 40 mg Documented by: Polyethylene Glycol (Miralax (For Daily Use) -) 17 gm PO BID [facility] Last Admin: 06/28/20 10:02 Dose: Not Given Documented by: ASSESSMENT AND PLAN: Acute Hypoxic Respiratory Failure AML Tumor Lysis Syndrome Shock - ?Septic Acute Kidney Injury Hyperkalemia improved Anemia/Thrombocytopenia HTN Hyperlipidemia - antibiotics per ID - monitor urine output, creatinine - titrate pressors to maintain MAP >65 - stress dose steroids - titrate FiO2 to keep SpO2 >90% - continue volume assist control - sedate for vent synchrony - enteral feeds - DVT/GI prophylaxis - continue ICU monitoring - continue discussions regarding goals of care critical care time spent in reviewing chart, evaluating patient and formulating plan 35 min
--- NOTE | 2020-06-28 13:39 | PN ---
Physical Exam: SUBJECTIVE: Patient seen and examined. Pt is intubated and sedated. OBJECTIVE: GENERAL: The patient is intubated and sedated . HEAD: Normal with no signs of trauma. ENT: Ears normal, nares patent, intubated NECK: Trachea midline, supple. LUNGS: bilateral rhonchi improved from 06/24 HEART: irregular rate and rhythm, S1, S2 without murmur, rub or gallop. ABDOMEN: distended no grimacing, splenomegaly EXTREMITIES: 2+ pulses bilateral lower ext 2+ edema. With RUE also has lynn a SKIN: Warm, dry, normal turgor, no rashes or lesions note Vital Signs Period Temp Pulse Resp BP Sys/Carrillo Pulse Ox Last 24 Hr 99.1 F-100.3 F 85-109 - 96-124/50-60 98-100 Laboratory Results - last 24 hr 06/24/20 06/28/20 06/28/20 17:00 05:50 06:00 WBC RBC Hgb Hct MCV MCH MCHC RDW Plt Count MPV Absolute Neuts (auto) Neutrophils % Neutrophils % (Manual) Band Neutrophils % Lymphocytes % Lymphocytes % (Manual) Monocytes % Monocytes % (Manual) Eosinophils % Eosinophils % (Manual) Basophils % Basophils % (Manual) Myelocytes % (Man) Promyelocytes % (Man) Blast Cells % (Manual) Nucleated RBC % Metamyelocytes Hypochromia Platelet Estimate Polychromasia Poikilocytosis Anisocytosis Microcytosis Macrocytosis PT with INR INR PTT (Actin FS) Fibrinogen D-Dimer Anticoagulation Therapy No Result Required. Puncture Site Right radial Patient Temperature No Result Required. ABG pH 7.288 L ABG pCO2 32.90 L ABG pO2 79.1 L ABG HCO3 15.4 L ABG O2 Sat (Measured) 94.5 L ABG O2 Content No Result Required. ABG Base Excess -10.3 L Rhett Test Positive Patient On Oxygen Yes O2 Delivery Device Vent Oxygen Flow Rate 50% Vent Mode A/c Vent Rate 24 Mechanical Rate Yes PEEP 6.0 Pressure Support Vent 480 Sodium Potassium Chloride Carbon Dioxide Anion Gap BUN Creatinine Est GFR (CKD-EPI)AfAm Est GFR (CKD-EPI)NonAf Random Glucose Uric Acid Calcium Phosphorus Magnesium Total Bilirubin AST ALT Alkaline Phosphatase LD Total Total Protein Albumin Random Vancomycin 21.5 Blood Type O POSITIVE Antibody Screen Negative Crossmatch See Detail 06/28/20 06/28/20 06/28/20 06:00 06:00 06:00 WBC 80.8 H* RBC 2.79 L Hgb 7.3 L Hct 23.8 L MCV 85.2 MCH 26.3 MCHC 30.9 L RDW 19.3 H Plt Count 28 L* MPV 11.5 H D Absolute Neuts (auto) 40.4 H Neutrophils % 50.0 Neutrophils % (Manual) 41.5 L D Band Neutrophils % 1.1 Lymphocytes % 4.9 L Lymphocytes % (Manual) 6.4 L D Monocytes % 45.1 H Monocytes % (Manual) 30 H D Eosinophils % 0.0 D Eosinophils % (Manual) 0.0 D Basophils % 0.0 Basophils % (Manual) 0.0 Myelocytes % (Man) 4 H D Promyelocytes % (Man) 4 H D Blast Cells % (Manual) 5 H D Nucleated RBC % 3 H Metamyelocytes 7 H D Hypochromia 0 Platelet Estimate Decreased Polychromasia 1+ Poikilocytosis 0 Anisocytosis 2+ Microcytosis 2+ Macrocytosis 0 PT with INR 18.60 H INR 1.57 H PTT (Actin FS) 30.9 Fibrinogen D-Dimer Anticoagulation Therapy Puncture Site Patient Temperature ABG pH ABG pCO2 ABG pO2 ABG HCO3 ABG O2 Sat (Measured) ABG O2 Content ABG Base Excess Rhett Test Patient On Oxygen O2 Delivery Device Oxygen Flow Rate Vent Mode Vent Rate Mechanical Rate PEEP Pressure Support Vent Sodium 136 Potassium 3.9 Chloride 105 Carbon Dioxide 19 L Anion Gap 12 BUN 89.5 H Creatinine 2.5 H Est GFR (CKD-EPI)AfAm 28.86 Est GFR (CKD-EPI)NonAf 24.90 Random Glucose 117 H Uric Acid 6.6 Calcium 7.7 L Phosphorus 5.4 H Magnesium 2.0 Total Bilirubin 0.8 AST 36 ALT 8 L Alkaline Phosphatase 135 H LD Total 453 H Total Protein 5.6 L Albumin 2.1 L Random Vancomycin Blood Type Antibody Screen Crossmatch 06/28/20 06/28/20 06:21 08:45 WBC RBC Hgb Hct MCV MCH MCHC RDW Plt Count MPV Absolute Neuts (auto) Neutrophils % Neutrophils % (Manual) Band Neutrophils % Lymphocytes % Lymphocytes % (Manual) Monocytes % Monocytes % (Manual) Eosinophils % Eosinophils % (Manual) Basophils % Basophils % (Manual) Myelocytes % (Man) Promyelocytes % (Man) Blast Cells % (Manual) Nucleated RBC % Metamyelocytes Hypochromia Platelet Estimate Polychromasia Poikilocytosis Anisocytosis Microcytosis Macrocytosis PT with INR INR PTT (Actin FS) Fibrinogen 420.0 D-Dimer 16945 H Anticoagulation Therapy Puncture Site Patient Temperature ABG pH ABG pCO2 ABG pO2 ABG HCO3 ABG O2 Sat (Measured) ABG O2 Content ABG Base Excess Rhett Test Patient On Oxygen O2 Delivery Device Oxygen Flow Rate Vent Mode Vent Rate Mechanical Rate PEEP Pressure Support Vent Sodium Potassium Chloride Carbon Dioxide Anion Gap BUN Creatinine Est GFR (CKD-EPI)AfAm Est GFR (CKD-EPI)NonAf Random Glucose Uric Acid Calcium Phosphorus Magnesium Total Bilirubin AST ALT Alkaline Phosphatase LD Total Total Protein Albumin Random Vancomycin Blood Type O POSITIVE Antibody Screen Negative Crossmatch Active Medications Generic Name Dose Route Start Last Admin Trade Name Freq PRN Reason Stop Dose Admin Allopurinol 300 mg 06/20/20 10:00 06/28/20 10:02 Zyloprim - PO 300 mg DAILY [facility] Administration Amino Acids 30 ml 06/22/20 17:30 06/28/20 09:57 Prosource No Carb Liquid Pkt PO 30 ml BID@0800,1730 [facility] Administration Artificial Tears 1 drop 06/20/20 10:00 06/28/20 10:03 Artificial Tears OU 1 drop DAILY [facility] Administration Atorvastatin Calcium 20 mg 06/19/20 22:00 06/27/20 21:30 Lipitor - PO 20 mg HS ERMELINDA Administration Docusate Sodium 100 mg 06/22/20 08:55 Colace Liquid - PO Q8H PRN CONSTIPATION Hydrocortisone Sodium Succinate 50 mg 06/24/20 13:15 06/28/20 00:58 Solu-Cortef - IVPUSH 50 mg Q12H ER[facility]INDA Administration Hydroxyurea 500 mg 06/27/20 22:00 06/28/20 10:02 Hydrea - PO 500 mg BID ERMELINDA Administration Propofol 1,000,000 mcg in 100 mls @ 2.618 mls/hr 06/20/20 00:30 06/28/20 09:57 Diprivan - IVPB 50 mcg/kg/min TITR ERMELINDA 26.181 mls/hr Administration Protocol 5 MCG/KG/MIN Vasopressin 40 units/ Sodium 100 mls @ 5 mls/hr 06/20/20 06:30 06/28/20 05:43 Chloride IVPB 2 units/hr ASDIR ERMELINDA 5 mls/hr Administration Protocol 2 UNITS/HR Norepinephrine Bitartrate 16, 500 mls @ 9.375 mls/hr 06/20/20 08:00 06/28/20 03:10 000 mcg/ Sodium Chloride IV 24 mcg/min TITR ERMELINDA 45 mls/hr Titration Protocol 5 MCG/MIN Metronidazole 500 mg in 100 mls @ 100 mls/hr 06/21/20 18:00 06/28/20 10:01 Flagyl 500mg Premixed Ivpb - IVPB 100 mls/hr Q8H-IV [facility]DA Administration Midazolam HCl 100 mg in 100 mls @ 1 mls/hr 06/26/20 22:30 06/27/20 22:30 Midazolam 100mg/100ml-0.9%Nacl IVPB Not Given TITR ERMELINDA Protocol 1 MG/HR Fentanyl 500 mcg in 100 mls @ 0.2 mls/hr 06/27/20 06:04 06/28/20 06:04 Sublimaze Ivpb IVPB Not Given TITR ERMELINDA 1 MCG/HR Cefepime HCl 1 gm/ Dextrose 50 mls @ 100 mls/hr 06/28/20 22:00 IVPB BID ERMELINDA Protocol Pantoprazole Sodium 40 mg 06/21/20 10:00 06/28/20 10:03 Protonix Iv IVPUSH 40 mg DAILY ERMELINDA Administration Polyethylene Glycol 17 gm 06/19/20 22:00 06/28/20 10:02 Miralax (For Daily Use) - PO Not Given BID ERMELINDA ASSESSMENT/PLAN: 70 yo male pmh of htn, hld, 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 Pt intubatedd on 06/19 for hypoxic resp failure Neuro -Pt sedated on Fentanyl and propofol -CAT scan to be done when stable -Daily sedation vacations to assess mental status Cardio: -Last echo of 06/15/20 normal -Edema likly due to low oncotic pressure from hypoalbuminemia -Foresemide dc -Edema may be fixed with transfusion due to third spacing -Pt on levo 24mcg and vasopressin 2mcg due to hypotension pt will monitor for MAP<65 -HTN: Metoprolol and lisinopril dc -Hyperlipidemia: Atorvastatin dc Resp: #ACUTE HYPOXIC RESPIRATORY FAILURE - Pt vented on RR 24, TV:480, PEEP 6, FiO2: 50% - Monitor LDH, uric acid - titrate pressors to maintain MAP >65 - titrate FiO2 to keep SpO2 >90% - continue volume assist control Renal: #Acute Kidney Injury -Nephro consulted and recommendations made -renal function stable -d/c shiley cath on 06/23 - monitor urine output, creatinine, K, phos - titrate pressors to maintain MAP >65 - taper stress dose steroids - pt has increased kidney failure so started pt on NS 50cc/kg Heme Onc: -Heme Onc consulted and recommendations made on CML to AML. 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 causing inc K and phos -Will follow Uric acid and LDH due to tumor lysis syndrome and treat accordingly -Pt on 300 mg of allopurinorl -Blood cultures: no growth obtained -Anemia: Transfuse prn to keep Hgb < 7 - Started pt back on hydrea -Transfuse if bleeding or platelets < 30,000 as patient febrile and platelets dysfunctional- Pt was given on pack of platelets (06/25) (06/26) (06/28) -monitor CBC, CMP, LDH, uric acid daily, and DIC labs as well - PT/PTT/fibrinogen GI - Pt feeds restarted. On Neppro ID -ON cefepime 2g BID (started 06/22) flaggyl 500 mg q8hrs (06/21) -Vanco dc due to observed therapeutic peak - Tylenol prn 1000 every 8 hrs - Blood cultures recultured on 06/20, no organism growth obtained FEN: - Continue volum assist - Hypokalemia improved. Continue to monitor lytes and replete prn - Continue enteral feed Prophylaxis - Heparin 5000 TID - Protonix for PUD #DISPOSITION: -Continue ICU monitoring -Continue discussion regarding goal of care-family meeting afternoon between sister, his fiance Margo, Palliative , ICU primary team and us to discuss GOC and plan moving forward. Visit type - Emergency Visit Emergency Visit: Yes ED Registration Date: 06/14/20 Care time: The patient presented to the Emergency Department on the above date and was hospitalized for further evaluation of their emergent condition. - New Patient This patient is new to me today: No - Critical Care Critical Care patient: Yes Total Critical Care Time (in minutes): 36 Critical Care Statement: The care of this patient involved high complexity decision making to prevent further life threatening deterioration of the patient's condition and/or to evaluate & treat vital organ system(s) failure or risk of failure. - Medication Review Med list reviewed for High Risk Meds patients 65 and older: Yes ATTENDING PHYSICIAN STATEMENT I saw and evaluated the patient. I reviewed the resident's note and discussed the case with the resident. I agree with the resident's findings and plan as documented. SUBJECTIVE: OBJECTIVE: ASSESSMENT AND PLAN:
[2020-06-28] MEDS ORDERED: PROPOFOL 1,000,000 MCG/100 ML VIAL ONE (14:37)
--- NOTE | 2020-06-28 15:29 | PN ---
Progress Note, Physician History of Present Illness: Pt seen and examined at bedside. He remains in the ICU. He remains intubated. - Current Medication List Current Medications: Active Medications Allopurinol (Zyloprim -) 300 mg PO DAILY [facility] Last Admin: 06/28/20 10:02 Dose: 300 mg Documented by: Amino Acids (Prosource No Carb Liquid Pkt) 30 ml PO BID@0800,1730 [facility] Last Admin: 06/28/20 09:57 Dose: 30 ml Documented by: Artificial Tears (Artificial Tears) 1 drop OU DAILY [facility] Last Admin: 06/28/20 10:03 Dose: 1 drop Documented by: Atorvastatin Calcium (Lipitor -) 20 mg PO HS [facility] Last Admin: 06/27/20 21:30 Dose: 20 mg Documented by: Docusate Sodium (Colace Liquid -) 100 mg PO Q8H PRN PRN Reason: CONSTIPATION Hydrocortisone Sodium Succinate (Solu-Cortef -) 50 mg IVPUSH Q12H [facility] Last Admin: 06/28/20 00:58 Dose: 50 mg Documented by: Hydroxyurea (Hydrea -) 500 mg PO BID [facility] Last Admin: 06/28/20 10:02 Dose: 500 mg Documented by: Propofol (Diprivan -) 1,000,000 mcg in 100 mls @ 2.618 mls/hr IVPB TITR [facility]; Protocol Last Admin: 06/28/20 15:08 Dose: 50 mcg/kg/min, 26.181 mls/hr Documented by: Vasopressin 40 units/ Sodium (Chloride) 100 mls @ 5 mls/hr IVPB ASDIR [facility]; Protocol Last Admin: 06/28/20 05:43 Dose: 2 units/hr, 5 mls/hr Documented by: Norepinephrine Bitartrate 16, (000 mcg/ Sodium Chloride) 500 mls @ 9.375 mls/hr IV TITR [facility]; Protocol Last Titration: 06/28/20 03:10 Dose: 24 mcg/min, 45 mls/hr Documented by: Metronidazole (Flagyl 500mg Premixed Ivpb -) 500 mg in 100 mls @ 100 mls/hr IVPB Q8H-IV [facility] Last Admin: 06/28/20 10:01 Dose: 100 mls/hr Documented by: Midazolam HCl (Midazolam 100mg/100ml-0.9%Nacl) 100 mg in 100 mls @ 1 mls/hr IVPB TITR [facility]; Protocol Last Admin: 06/27/20 22:30 Dose: Not Given Documented by: Fentanyl (Sublimaze Ivpb) 500 mcg in 100 mls @ 0.2 mls/hr IVPB TITR [facility] Last Admin: 06/28/20 06:04 Dose: Not Given Documented by: Cefepime HCl 1 gm/ Dextrose 50 mls @ 100 mls/hr IVPB BID [facility]; Protocol Pantoprazole Sodium (Protonix Iv) 40 mg IVPUSH DAILY [facility] Last Admin: 06/28/20 10:03 Dose: 40 mg Documented by: Polyethylene Glycol (Miralax (For Daily Use) -) 17 gm PO BID [facility] Last Admin: 06/28/20 10:02 Dose: Not Given Documented by: - Objective Vital Signs: Vital Signs Temperature 100.3 F H 06/28/20 06:00 Pulse Rate 95 H 06/28/20 08:23 Respiratory Rate 27 H 06/28/20 12:42 Blood Pressure 96/52 L 06/28/20 06:00 O2 Sat by Pulse Oximetry (%) 99 06/28/20 12:42 Constitutional: Yes: Calm, Cachectic Eyes: Yes: Conjunctiva Clear HENT: Yes: Atraumatic Neck: Yes: Supple Cardiovascular: Yes: S1, S2 Respiratory: Yes: Mechanically Ventilated Gastrointestinal: Yes: Soft Genitourinary: Yes: García Present Musculoskeletal: Yes: Muscle Weakness Edema: Yes Edema: LLE: 1+, RLE: 1+ Neurological: Yes: Lethargy Labs: CBC, BMP 06/28/20 06:00 06/28/20 06:00 INR, PTT INR 1.57 (0.83-1.09) H 06/28/20 06:00 Fibrinogen 420.0 mg/dL (238-498) 06/28/20 06:21 Problem List - Problems (1) AML (acute myeloblastic leukemia) Code(s): C92.00 - ACUTE MYELOBLASTIC LEUKEMIA, NOT HAVING ACHIEVED REMISSION (2) CHF (congestive heart failure) Code(s): I50.9 - HEART FAILURE, UNSPECIFIED (3) CML (chronic myelocytic leukemia) Code(s): C92.10 - CHRONIC MYELOID LEUK, BCR/ABL-POSITIVE, NOT ACHIEVE REMIS Assessment/Plan Current Medications Generic Name Dose Route Start Last Admin Trade Name Freq PRN Reason Stop Dose Admin Allopurinol 300 mg 06/20/20 10:00 06/28/20 10:02 Zyloprim - PO 300 mg DAILY ER[facility]INDA Administration Amino Acids 30 ml 06/22/20 17:30 06/28/20 09:57 Prosource No Carb Liquid Pkt PO 30 ml BID@0800,1730 ER[facility] Administration Artificial Tears 1 drop 06/20/20 10:00 06/28/20 10:03 Artificial Tears OU 1 drop DAILY ER[facility]INDA Administration Atorvastatin Calcium 20 mg 06/19/20 22:00 06/27/20 21:30 Lipitor - PO 20 mg HS ERMELINDA Administration Docusate Sodium 100 mg 06/22/20 08:55 Colace Liquid - PO Q8H PRN CONSTIPATION Hydrocortisone Sodium Succinate 50 mg 06/24/20 13:15 06/28/20 00:58 Solu-Cortef - IVPUSH 50 mg Q12H ERMELINDA Administration Hydroxyurea 500 mg 06/27/20 22:00 06/28/20 10:02 Hydrea - PO 500 mg BID ERMELINDA Administration Propofol 1,000,000 mcg in 100 mls @ 2.618 mls/hr 06/20/20 00:30 06/28/20 15:08 Diprivan - IVPB 50 mcg/kg/min TITR ERMELINDA 26.181 mls/hr Administration Protocol 5 MCG/KG/MIN Vasopressin 40 units/ Sodium 100 mls @ 5 mls/hr 06/20/20 06:30 06/28/20 05:43 Chloride IVPB 2 units/hr ASDIR ERMELINDA 5 mls/hr Administration Protocol 2 UNITS/HR Norepinephrine Bitartrate 16, 500 mls @ 9.375 mls/hr 06/20/20 08:00 06/28/20 03:10 000 mcg/ Sodium Chloride IV 24 mcg/min TITR ERMELINDA 45 mls/hr Titration Protocol 5 MCG/MIN Metronidazole 500 mg in 100 mls @ 100 mls/hr 06/21/20 18:00 06/28/20 10:01 Flagyl 500mg Premixed Ivpb - IVPB 100 mls/hr Q8H-IV ER[facility]INDA Administration Midazolam HCl 100 mg in 100 mls @ 1 mls/hr 06/26/20 22:30 06/27/20 22:30 Midazolam 100mg/100ml-0.9%Nacl IVPB Not Given TITR ERMELINDA Protocol 1 MG/HR Fentanyl 500 mcg in 100 mls @ 0.2 mls/hr 06/27/20 06:04 06/28/20 06:04 Sublimaze Ivpb IVPB Not Given TITR ERMELINDA 1 MCG/HR Cefepime HCl 1 gm/ Dextrose 50 mls @ 100 mls/hr 06/28/20 22:00 IVPB BID ERMELINDA Protocol Pantoprazole Sodium 40 mg 06/21/20 10:00 06/28/20 10:03 Protonix Iv IVPUSH 40 mg DAILY ERM[facility]IN[facility] Administration Polyethylene Glycol 17 gm 06/19/20 22:00 06/28/20 10:02 Miralax (For Daily Use) - PO Not Given BID ERMELINDA Impression 1. CKD 2. CML 3. AML 4. pleural effusions 5. htn 6. tumor lysis 7. charisse 8. hyperkalemia 9. acuter resp failure Plan - maintain map 65 - monitor renal function - accounting support specialist rising - concert for atn - avoid hypotensive episodes - vent support - monitor lytes
[2020-06-28] MEDS: NOREPINEPHRINE BITARTRATE 16,000 MCG in SODIUM CHLORIDE 484 ML IV SCH (15:50)
--- NOTE | 2020-06-28 16:31 | PN ---
Teaching Attending Note Name of Resident: Alee Nelson ATTENDING PHYSICIAN STATEMENT I saw and evaluated the patient. I reviewed the resident's note and discussed the case with the resident. I agree with the resident's findings and plan as documented. 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 Patient's clinical condition is guarded and prognosis is extremely poor as his blast count continues to increase. He was started on hydrea this weekend as a temporizing measure but I am doubtful he will recover enough to be off pressors/vent. I spoke to his sister, Nathaly over the phone and relayed patient's poor prognosis as he has been intubated for 1 week and continues on high pressor support. I suggested a family meeting afternoon between her, his usman Aragon, Palliative , ICU primary team and us to discuss GOC and plan moving forward.
[2020-06-28] MEDS: SODIUM CHLORIDE 1,000 ML IV SCH (17:00)
[2020-06-28] MEDS ORDERED: ACETAMINOPHEN 1000 MG/100 ML VIAL (NON FORMULARY) IVPB PRN (17:13)
--- NOTE | 2020-06-28 17:17 | PN ---
Progress Note, Physician Chief Complaint: EVENTS AND NOTES REVIEWED STILL ON BP PRESSURE SUPPORT AND INTUBATED ON VENT SUPPORT. - Current Medication List Current Medications: Active Medications Acetaminophen (Ofirmev Injection -) 1,000 mg IVPB Q8H PRN PRN Reason: FEVER Stop: 06/29/20 17:14 Allopurinol (Zyloprim -) 300 mg PO DAILY ERMELINDA Last Admin: 06/28/20 10:02 Dose: 300 mg Documented by: Amino Acids (Prosource No Carb Liquid Pkt) 30 ml PO BID@0800,1730 ERMELINDA Last Admin: 06/28/20 09:57 Dose: 30 ml Documented by: Artificial Tears (Artificial Tears) 1 drop OU DAILY ERMELINDA Last Admin: 06/28/20 10:03 Dose: 1 drop Documented by: Atorvastatin Calcium (Lipitor -) 20 mg PO HS ERMELINDA Last Admin: 06/27/20 21:30 Dose: 20 mg Documented by: Docusate Sodium (Colace Liquid -) 100 mg PO Q8H PRN PRN Reason: CONSTIPATION Hydrocortisone Sodium Succinate (Solu-Cortef -) 50 mg IVPUSH Q12H ERMELINDA Last Admin: 06/28/20 15:00 Dose: 50 mg Documented by: Hydroxyurea (Hydrea -) 500 mg PO BID ERMELINDA Last Admin: 06/28/20 10:02 Dose: 500 mg Documented by: Propofol (Diprivan -) 1,000,000 mcg in 100 mls @ 2.618 mls/hr IVPB TITR ERMELINDA; Protocol Last Admin: 06/28/20 15:08 Dose: 50 mcg/kg/min, 26.181 mls/hr Documented by: Vasopressin 40 units/ Sodium (Chloride) 100 mls @ 5 mls/hr IVPB ASDIR ERMELINDA; Protocol Last Admin: 06/28/20 05:43 Dose: 2 units/hr, 5 mls/hr Documented by: Norepinephrine Bitartrate 16, (000 mcg/ Sodium Chloride) 500 mls @ 9.375 mls/hr IV TITR ERMELINDA; Protocol Last Admin: 06/28/20 15:50 Dose: 24 mcg/min, 45 mls/hr Documented by: Metronidazole (Flagyl 500mg Premixed Ivpb -) 500 mg in 100 mls @ 100 mls/hr IVPB Q8H-IV ERMELINDA Last Admin: 06/28/20 10:01 Dose: 100 mls/hr Documented by: Midazolam HCl (Midazolam 100mg/100ml-0.9%Nacl) 100 mg in 100 mls @ 1 mls/hr IVPB TITR ERMELINDA; Protocol Last Admin: 06/27/20 22:30 Dose: Not Given Documented by: Fentanyl (Sublimaze Ivpb) 500 mcg in 100 mls @ 0.2 mls/hr IVPB TITR ERMELINDA Last Admin: 06/28/20 15:53 Dose: 100 mcg/hr, 20 mls/hr Documented by: Cefepime HCl 1 gm/ Dextrose 50 mls @ 100 mls/hr IVPB BID ERMELINDA; Protocol Sodium Chloride (Normal Saline -) 1,000 mls @ 50 mls/hr IV ASDIR ERMELINDA Pantoprazole Sodium (Protonix Iv) 40 mg IVPUSH DAILY ERMELINDA Last Admin: 06/28/20 10:03 Dose: 40 mg Documented by: Polyethylene Glycol (Miralax (For Daily Use) -) 17 gm PO BID ERMELINDA Last Admin: 06/28/20 10:02 Dose: Not Given Documented by: - Objective Vital Signs: Vital Signs Temperature 100.4 F H 06/28/20 16:00 Pulse Rate 102 H 06/28/20 16:00 Respiratory Rate 24 H 06/28/20 16:00 Blood Pressure 101/48 L 06/28/20 16:00 O2 Sat by Pulse Oximetry (%) 99 06/28/20 16:00 Constitutional: Yes: Other Cardiovascular: Yes: Tachycardia, Pulse Irregular Respiratory: Yes: Mechanically Ventilated, Other Gastrointestinal: Yes: Abdomen, Obese, Distention Genitourinary: Yes: García Present Musculoskeletal: Yes: Muscle Weakness Edema: Yes Integumentary: Yes: Erythema, Venous Stasis Changes Labs: CBC, BMP 06/28/20 06:00 06/28/20 06:00 INR, PTT INR 1.57 (0.83-1.09) H 06/28/20 06:00 Fibrinogen 420.0 mg/dL (238-498) 06/28/20 06:21 Problem List - Problems (1) AML (acute myeloblastic leukemia) Code(s): C92.00 - ACUTE MYELOBLASTIC LEUKEMIA, NOT HAVING ACHIEVED REMISSION (2) CHF (congestive heart failure) Code(s): I50.9 - HEART FAILURE, UNSPECIFIED (3) Palpitations Code(s): R00.2 - PALPITATIONS (4) Shortness of breath Code(s): R06.02 - SHORTNESS OF BREATH (5) Acute renal failure Code(s): N17.9 - ACUTE KIDNEY FAILURE, UNSPECIFIED (6) Abdominal distention Code(s): R14.0 - ABDOMINAL DISTENSION (GASEOUS) (7) CML (chronic myelocytic leukemia) Code(s): C92.10 - CHRONIC MYELOID LEUK, BCR/ABL-POSITIVE, NOT ACHIEVE REMIS Assessment/Plan ON VENT SUPPORT D/W ICU TEAM WEANING PROTOCOL TOLERATED REDUCING SEDATION TO OFF THEN WEANING TODAY ON 40% FIO2 HD PER NEPHROLOGY ON ABX TRANSFUSE PRBC PER ONCOLOGY DVT 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
[2020-06-28 19:22] LABS: BASO % 0.4 % (0-2.0); EOS % 0.1 % (0-4.5); HEMATOCRIT 22.9 % (35.4-49); LYMPH % 9.4 % (8-40); MCH 26.7 pg (25.7-33.7); MCHC 30.7 g/dl (32.0-35.9); MEAN CELL VOLUME 86.7 fl (80-96); MEAN PLT VOLUME 10.7 fl (7.5-11.1); MONO % 1.2 % (3.8-10.2); NEUT % 88.9 % (42.8-82.8); PLATELET COUNT 41 K/MM3 (134-434); RBC 2.64 M/mm3 (4.00-5.60); RDW 19.6 % (11.9-15.9)
[2020-06-28 19:25] LABS: WHITE BLOOD COUNT 62.6 K/mm3 (4.0-10.0)
[2020-06-28] MEDS ORDERED: CEFEPIME HCL 1 GM VIAL (RESTRICTED TO ID) ONE (20:36)
[2020-06-28] MEDS ORDERED: DEXTROSE 5%-WATER - 50 ML IVPB ONE (20:37)
[2020-06-28] MEDS: ATORVASTATIN CA 20 MG TABLET (FP) PO SCH (20:59)
[2020-06-28] MEDS: CEFEPIME 1 GM in DEXTROSE 5%-WATER - 50 ML IVPB SCH (21:00)
[2020-06-28 21:31] LABS: ANISOCYTOSIS 2+
[2020-06-28 21:32] LABS: OVALOCYTE 1+; PLATELET ESTIMATE DECREASED; TARGET CELLS 1+; TEAR DROP CELLS 1+
[2020-06-28] MEDS: MIDAZOLAM IN 0.9 % SOD.CHLORID 100 MG/100 ML PLAST..BAG IVPB SCH (22:30)
[2020-06-29] MEDS: HYDROCORTISONE SOD SUCCINATE 100 MG/2 ML VIAL IVPUSH SCH ×2 (01:05→13:01)
[2020-06-29] MEDS: PROPOFOL 1,000,000 MCG/100 ML VIAL IVPB SCH (02:44)
[2020-06-29 05:21] LABS: ALLENS TEST POSITIVE; ARTERIAL BLD GAS O2 SATURATION 96.8 mmHg (95-98); ARTERIAL BLOOD GAS BASE EXCESS -12.6 mmol/L (-2-2); ARTERIAL BLOOD GAS PO2 102.8 mmHg (80-100); ARTERIAL BLOOD GAS pH 7.234 (7.350-7.450); PT'S TEMP 100.9
[2020-06-29 05:22] LABS: VENT MODE A/C; VENT RATE 24
[2020-06-29 05:35] LABS: INR 1.58 (0.83-1.09); PROTHROMBIN TIME (PATIENT) 18.7 SEC (9.7-13.0)
[2020-06-29 05:37] LABS: BASO % 0.6 % (0-2.0); EOS % 0.9 % (0-4.5); HEMATOCRIT 21.8 % (35.4-49); LYMPH % 7.4 % (8-40); MCH 26.8 pg (25.7-33.7); MCHC 31.2 g/dl (32.0-35.9); MEAN CELL VOLUME 85.7 fl (80-96); MEAN PLT VOLUME 10.8 fl (7.5-11.1); MONO % 0.9 % (3.8-10.2); NEUT % 90.2 % (42.8-82.8); PLATELET COUNT 38 K/MM3 (134-434); RBC 2.54 M/mm3 (4.00-5.60); RDW 19.6 % (11.9-15.9)
[2020-06-29 05:38] LABS: ACTIVATED PTT 32.3 SECONDS (25.2-36.5)
[2020-06-29] MEDS: VASOPRESSIN 40 UNITS in SODIUM CHLORIDE 98 ML IVPB SCH (05:50)
[2020-06-29 05:55] LABS: HEMOGLOBIN 6.8 GM/dL (11.7-16.9); WHITE BLOOD COUNT 53.7 K/mm3 (4.0-10.0)
[2020-06-29 05:58] LABS: BILIRUBIN,TOTAL 0.8 mg/dL (0.2-1); CALCIUM 7.6 mg/dL (8.5-10.1); CREATININE 3.5 mg/dL (0.55-1.3); PHOSPHOROUS 6.7 mg/dL (2.5-4.9); POTASSIUM 4.5 mmol/L (3.5-5.1); TOT PROT 5.4 g/dl (6.4-8.2); URIC ACID 7.4 mg/dL (2.6-7.2)
[2020-06-29] MEDS: FENTANYL NS IVPB 500 MCG/100 ML BAG IVPB SCH ×2 (06:04→10:00)
[2020-06-29 06:45] LABS: BLOOD UREA NITROGEN 112.5 mg/dL (7-18)
--- NOTE | 2020-06-29 07:16 | PN ---
Progress Note, Physician Chief Complaint: INTUBATED STILL ON VENT PRESSURE SUPPORT ON LEVOPHED - Current Medication List Current Medications: Active Medications Acetaminophen (Ofirmev Injection -) 1,000 mg IVPB Q8H PRN PRN Reason: FEVER Stop: 06/29/20 17:14 Last Admin: 06/28/20 18:00 Dose: 1,000 mg Documented by: Allopurinol (Zyloprim -) 300 mg PO DAILY ERMELINDA Last Admin: 06/28/20 10:02 Dose: 300 mg Documented by: Amino Acids (Prosource No Carb Liquid Pkt) 30 ml PO BID@0800,1730 ERMELINDA Last Admin: 06/28/20 18:39 Dose: 30 ml Documented by: Artificial Tears (Artificial Tears) 1 drop OU DAILY ERMELINDA Last Admin: 06/28/20 10:03 Dose: 1 drop Documented by: Atorvastatin Calcium (Lipitor -) 20 mg PO HS ERMELINDA Last Admin: 06/28/20 20:59 Dose: 20 mg Documented by: Docusate Sodium (Colace Liquid -) 100 mg PO Q8H PRN PRN Reason: CONSTIPATION Last Admin: 06/28/20 21:00 Dose: 100 mg Documented by: Hydrocortisone Sodium Succinate (Solu-Cortef -) 50 mg IVPUSH Q12H ERMELINDA Last Admin: 06/29/20 01:05 Dose: 50 mg Documented by: Hydroxyurea (Hydrea -) 500 mg PO BID ERMELINDA Last Admin: 06/28/20 20:59 Dose: 500 mg Documented by: Propofol (Diprivan -) 1,000,000 mcg in 100 mls @ 2.618 mls/hr IVPB TITR ERMELINDA; Protocol Last Titration: 06/29/20 06:15 Dose: 50 mcg/kg/min, 26.181 mls/hr Documented by: Vasopressin 40 units/ Sodium (Chloride) 100 mls @ 5 mls/hr IVPB ASDIR ERMELINDA; Protocol Last Admin: 06/29/20 05:50 Dose: 2 units/hr, 5 mls/hr Documented by: Norepinephrine Bitartrate 16, (000 mcg/ Sodium Chloride) 500 mls @ 9.375 mls/hr IV TITR ERMELINDA; Protocol Last Titration: 06/29/20 05:50 Dose: 24 mcg/min, 45 mls/hr Documented by: Metronidazole (Flagyl 500mg Premixed Ivpb -) 500 mg in 100 mls @ 100 mls/hr IVPB Q8H-IV ERMELINDA Last Admin: 06/29/20 01:05 Dose: 100 mls/hr Documented by: Midazolam HCl (Midazolam 100mg/100ml-0.9%Nacl) 100 mg in 100 mls @ 1 mls/hr IVPB TITR ERMELINDA; Protocol Last Admin: 06/28/20 22:30 Dose: Not Given Documented by: Fentanyl (Sublimaze Ivpb) 500 mcg in 100 mls @ 0.2 mls/hr IVPB TITR ERMELINDA Last Admin: 06/29/20 06:04 Dose: Not Given Documented by: Cefepime HCl 1 gm/ Dextrose 50 mls @ 100 mls/hr IVPB BID ERMELINDA; Protocol Last Admin: 06/28/20 21:00 Dose: 100 mls/hr Documented by: Sodium Chloride (Normal Saline -) 1,000 mls @ 50 mls/hr IV ASDIR ERMELINDA Last Admin: 06/28/20 17:00 Dose: 50 mls/hr Documented by: Pantoprazole Sodium (Protonix Iv) 40 mg IVPUSH DAILY ERMELINDA Last Admin: 06/28/20 10:03 Dose: 40 mg Documented by: Polyethylene Glycol (Miralax (For Daily Use) -) 17 gm PO BID ERMELINDA Last Admin: 06/28/20 21:01 Dose: Not Given Documented by: - Objective Vital Signs: Vital Signs Temperature 100.8 F H 06/29/20 04:00 Pulse Rate 107 H 06/29/20 05:50 Respiratory Rate 30 H 06/29/20 05:02 Blood Pressure 109/48 L 06/29/20 05:50 O2 Sat by Pulse Oximetry (%) 99 06/29/20 04:00 Constitutional: Yes: Severe Distress Cardiovascular: Yes: Tachycardia Respiratory: Yes: Diminished, Mechanically Ventilated Gastrointestinal: Yes: Distention Genitourinary: Yes: García Present Musculoskeletal: Yes: Muscle Weakness Edema: Yes Integumentary: Yes: Erythema, Venous Stasis Changes Labs: CBC, BMP 06/29/20 05:00 06/29/20 05:00 INR, PTT INR 1.58 (0.83-1.09) H 06/29/20 05:00 Fibrinogen 420.0 mg/dL (238-498) 06/28/20 06:21 Problem List - Problems (1) AML (acute myeloblastic leukemia) Code(s): C92.00 - ACUTE MYELOBLASTIC LEUKEMIA, NOT HAVING ACHIEVED REMISSION (2) CHF (congestive heart failure) Code(s): I50.9 - HEART FAILURE, UNSPECIFIED (3) Palpitations Code(s): R00.2 - PALPITATIONS (4) Shortness of breath Code(s): R06.02 - SHORTNESS OF BREATH (5) Acute renal failure Code(s): N17.9 - ACUTE KIDNEY FAILURE, UNSPECIFIED (6) Abdominal distention Code(s): R14.0 - ABDOMINAL DISTENSION (GASEOUS) (7) CML (chronic myelocytic leukemia) Code(s): C92.10 - CHRONIC MYELOID LEUK, BCR/ABL-POSITIVE, NOT ACHIEVE REMIS Assessment/Plan ON VENT SUPPORT D/W ICU TEAM WEANING PROTOCOL TOLERATED REDUCING SEDATION TO OFF THEN WEANING TODAY ON 60% FIO2 HD PER NEPHROLOGY ON ABX TRANSFUSE PRBC PER ONCOLOGY DVT 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
[2020-06-29] MEDS ORDERED: CEFEPIME HCL 1 GM VIAL (RESTRICTED TO ID) ONE (07:47)
[2020-06-29] MEDS ORDERED: DEXTROSE 5%-WATER - 50 ML IVPB ONE (07:48)
[2020-06-29] MEDS: AMINO ACIDS/PROTEIN HYDROLYS 30 ML LIQUID.PKT PO SCH ×2 (08:40→18:53)
[2020-06-29 09:59] LABS: ANISOCYTOSIS 1+; MACROCYTOSIS 1+; PLATELET ESTIMATE DECREASED
[2020-06-29] MEDS ORDERED: PT OWN MED DRAWER 7, Y5N ONE (10:15)
[2020-06-29] MEDS: PANTOPRAZOLE SODIUM 40 MG VIAL IVPUSH SCH (10:16)
[2020-06-29] MEDS: HYDROXYUREA 500 MG CAPSULE PO SCH ×2 (10:16→21:21)
[2020-06-29] MEDS: ALLOPURINOL 300 MG TABLET (FP) PO SCH (10:16)
[2020-06-29] MEDS: CEFEPIME 1 GM in DEXTROSE 5%-WATER - 50 ML IVPB SCH (10:17)
[2020-06-29] MEDS: ARTIFICIAL TEARS (POLYVINYL ALCOHOL) OPTH DROPS OU SCH (10:20)
[2020-06-29] MEDS: POLYETHYLENE GLYCOL 3350 119 GM BTL PO SCH ×2 (10:21→21:22)
--- NOTE | 2020-06-29 11:34 | PN ---
Teaching Attending Note Name of Resident: Rudy Sanabria ATTENDING PHYSICIAN STATEMENT I saw and evaluated the patient. I reviewed the resident's note and discussed the case with the resident. I agree with the resident's findings and plan as documented. SUBJECTIVE: Pt seen and examined in the ICU. Remains intubated, sedated on levophed gtt 24mcgs vasopressin 2 units. Remains febrile, cultures negative. Vented on volume assist control with 50% FiO2. Renal function and urine output worsening. OBJECTIVE: Vital Signs Period Temp Pulse Resp BP Sys/Carrillo Pulse Ox Last 24 Hr 96.5 F-100.8 F 90-108 19-30 85-117/42-55 96-100 Intake & Output 06/26/20 06/27/20 06/28/20 06/29/20 23:59 23:59 23:59 23:59 Intake Total 3170.1 3738 4024.4 1174 Output Total 1520 1100 575 50 Balance 1650.1 2638 3449.4 1124 Weight 82.282 kg 85.729 kg 85.23 kg 91.354 kg Gen: intubated, sedated Heart: RRR Lung: scattered rhonchi Abd: soft, nontender Ext: + edema CBC, BMP 06/29/20 05:00 06/29/20 05:00 Active Medications Acetaminophen (Ofirmev Injection -) 1,000 mg IVPB Q8H PRN PRN Reason: FEVER Stop: 06/29/20 17:14 Last Admin: 06/28/20 18:00 Dose: 1,000 mg Documented by: Allopurinol (Zyloprim -) 300 mg PO DAILY [facility] Last Admin: 06/29/20 10:16 Dose: 300 mg Documented by: Amino Acids (Prosource No Carb Liquid Pkt) 30 ml PO BID@0800,1730 [facility] Last Admin: 06/29/20 08:40 Dose: 30 ml Documented by: Artificial Tears (Artificial Tears) 1 drop OU DAILY [facility] Last Admin: 06/29/20 10:20 Dose: 1 drop Documented by: Atorvastatin Calcium (Lipitor -) 20 mg PO HS [facility] Last Admin: 06/28/20 20:59 Dose: 20 mg Documented by: Docusate Sodium (Colace Liquid -) 100 mg PO Q8H PRN PRN Reason: CONSTIPATION Last Admin: 06/28/20 21:00 Dose: 100 mg Documented by: Hydrocortisone Sodium Succinate (Solu-Cortef -) 50 mg IVPUSH Q12H ERMELINDA Last Admin: 06/29/20 01:05 Dose: 50 mg Documented by: Hydroxyurea (Hydrea -) 500 mg PO BID ERMELINDA Last Admin: 06/29/20 10:16 Dose: 500 mg Documented by: Propofol (Diprivan -) 1,000,000 mcg in 100 mls @ 2.618 mls/hr IVPB TITR ERMELINDA; Protocol Last Titration: 06/29/20 06:15 Dose: 50 mcg/kg/min, 26.181 mls/hr Documented by: Vasopressin 40 units/ Sodium (Chloride) 100 mls @ 5 mls/hr IVPB ASDIR ERMELINDA; Protocol Last Admin: 06/29/20 05:50 Dose: 2 units/hr, 5 mls/hr Documented by: Norepinephrine Bitartrate 16, (000 mcg/ Sodium Chloride) 500 mls @ 9.375 mls/hr IV TITR ERMELINDA; Protocol Last Titration: 06/29/20 05:50 Dose: 24 mcg/min, 45 mls/hr Documented by: Metronidazole (Flagyl 500mg Premixed Ivpb -) 500 mg in 100 mls @ 100 mls/hr I VPB Q8H-IV ERMELINDA Last Admin: 06/29/20 10:19 Dose: 100 mls/hr Documented by: Midazolam HCl (Midazolam 100mg/100ml-0.9%Nacl) 100 mg in 100 mls @ 1 mls/hr IVPB TITR ERMELINDA; Protocol Last Admin: 06/28/20 22:30 Dose: Not Given Documented by: Fentanyl (Sublimaze Ivpb) 500 mcg in 100 mls @ 0.2 mls/hr IVPB TITR ERMELINDA Last Admin: 06/29/20 10:00 Dose: 100 mcg/hr, 20 mls/hr Documented by: Cefepime HCl 1 gm/ Dextrose 50 mls @ 100 mls/hr IVPB BID ERMELINDA; Protocol Last Admin: 06/29/20 10:17 Dose: 100 mls/hr Documented by: Sodium Chloride (Normal Saline -) 1,000 mls @ 50 mls/hr IV ASDIR ERMELINDA Last Admin: 06/28/20 17:00 Dose: 50 mls/hr Documented by: Pantoprazole Sodium (Protonix Iv) 40 mg IVPUSH DAILY ERMELINDA Last Admin: 06/29/20 10:16 Dose: 40 mg Documented by: Polyethylene Glycol (Miralax (For Daily Use) -) 17 gm PO BID [facility] Last Admin: 06/29/20 10:21 Dose: Not Given Documented by: ASSESSMENT AND PLAN: Acute Hypoxic Respiratory Failure AML Tumor Lysis Syndrome Shock - ?Septic Acute Kidney Injury Hyperkalemia improved Anemia/Thrombocytopenia HTN Hyperlipidemia - antibiotics per ID - IVF - monitor urine output, creatinine - titrate pressors to maintain MAP >65 - stress dose steroids - transfuse PRBC - monitor H/H - titrate FiO2 to keep SpO2 >90% - continue volume assist control - sedate for vent synchrony - enteral feeds - DVT/GI prophylaxis - continue ICU monitoring - poor overall prognosis, continue discussions regarding goals of care critical care time spent in reviewing chart, evaluating patient and formulating plan 35 min
[2020-06-29] MEDS ORDERED: FUROSEMIDE 40 MG/4 ML INJECTABLE VIAL IVPUSH ONE (12:00)
--- NOTE | 2020-06-29 12:34 | PN ---
Physical Exam: SUBJECTIVE: Patient seen and examined OBJECTIVE: GENERAL: The patient is intubated and sedated . HEAD: Normal with no signs of trauma. ENT: Ears normal, nares patent, intubated NECK: Trachea midline, supple. LUNGS: bilateral rhonchi improved from 06/24 HEART: irregular rate and rhythm, S1, S2 without murmur, rub or gallop. ABDOMEN: distended no grimacing, splenomegaly EXTREMITIES: 2+ pulses bilateral lower ext 2+ edema. With RUE also has lynn a SKIN: Warm, dry, normal turgor, no rashes or lesions note Vital Signs Period Temp Pulse Resp BP Sys/Carrillo Pulse Ox Last 24 Hr 96.5 F-100.8 F 90-108 19-30 85-117/42-55 96-100 Laboratory Results - last 24 hr 06/28/20 06/28/20 06/29/20 08:45 18:15 05:00 WBC 62.6 H* 53.7 H* RBC 2.64 L 2.54 L Hgb 7.0 L 6.8 L* Hct 22.9 L 21.8 L MCV 86.7 85.7 MCH 26.7 26.8 MCHC 30.7 L 31.2 L RDW 19.6 H 19.6 H Plt Count 41 L D 38 L MPV 10.7 10.8 Absolute Neuts (auto) 55.7 H 48.5 H Total Counted 100 Neutrophils % 88.9 H D 90.2 H Neutrophils % (Manual) 62.0 D 61.5 Band Neutrophils % 6.0 0.0 Lymphocytes % 9.4 D 7.4 L D Lymphocytes % (Manual) 12.0 D 10.4 Monocytes % 1.2 L D 0.9 L Monocytes % (Manual) 4 D 5 Eosinophils % 0.1 D 0.9 D Eosinophils % (Manual) 4.0 D 1.1 Basophils % 0.4 D 0.6 Basophils % (Manual) 0.0 Myelocytes % (Man) 3 H D 13 H D Promyelocytes % (Man) 3 H D Blast Cells % (Manual) 7 H D 3 H D Nucleated RBC % 3 H 0 Metamyelocytes 2 D 3 H D Hypochromia 2+ 0 Platelet Estimate Decreased Decreased Platelet Comment No clumping noted Polychromasia 2+ 0 Poikilocytosis 1+ 1+ Anisocytosis 2+ 1+ Microcytosis 2+ 0 Macrocytosis 1+ Target Cells 1+ Tear Drop Cells 1+ Ovalocytes 1+ PT with INR INR PTT (Actin FS) Fibrinogen D-Dimer Anticoagulation Therapy Puncture Site Patient Temperature ABG pH ABG pCO2 ABG pO2 ABG HCO3 ABG O2 Sat (Measured) ABG O2 Content ABG Base Excess Rhett Test Patient On Oxygen O2 Delivery Device Oxygen Flow Rate Vent Mode Vent Rate Mechanical Rate PEEP Pressure Support Vent Sodium Potassium Chloride Carbon Dioxide Anion Gap BUN Creatinine Est GFR (CKD-EPI)AfAm Est GFR (CKD-EPI)NonAf Random Glucose Uric Acid Calcium Phosphorus Magnesium Ferritin Total Bilirubin AST ALT Alkaline Phosphatase LD Total Total Protein Albumin Stool Occult Blood Blood Type O POSITIVE Antibody Screen Negative Crossmatch See Detail 06/29/20 06/29/20 06/29/20 05:00 05:00 05:00 WBC RBC Hgb Hct MCV MCH MCHC RDW Plt Count MPV Absolute Neuts (auto) Total Counted Neutrophils % Neutrophils % (Manual) Band Neutrophils % Lymphocytes % Lymphocytes % (Manual) Monocytes % Monocytes % (Manual) Eosinophils % Eosinophils % (Manual) Basophils % Basophils % (Manual) Myelocytes % (Man) Promyelocytes % (Man) Blast Cells % (Manual) Nucleated RBC % Metamyelocytes Hypochromia Platelet Estimate Platelet Comment Polychromasia Poikilocytosis Anisocytosis Microcytosis Macrocytosis Target Cells Tear Drop Cells Ovalocytes PT with INR 18.70 H INR 1.58 H PTT (Actin FS) 32.3 Fibrinogen D-Dimer 9636 H Anticoagulation Therapy Puncture Site Patient Temperature ABG pH ABG pCO2 ABG pO2 ABG HCO3 ABG O2 Sat (Measured) ABG O2 Content ABG Base Excess Rhett Test Patient On Oxygen O2 Delivery Device Oxygen Flow Rate Vent Mode Vent Rate Mechanical Rate PEEP Pressure Support Vent Sodium 134 L Potassium 4.5 Chloride 105 Carbon Dioxide 17 L Anion Gap 12 BUN 112.5 H* Creatinine 3.5 H Est GFR (CKD-EPI)AfAm 19.21 Est GFR (CKD-EPI)NonAf 16.58 Random Glucose 124 H Uric Acid 7.4 H Calcium 7.6 L Phosphorus 6.7 H Magnesium 2.0 Ferritin 6265.1 H Total Bilirubin 0.8 AST 29 ALT 9 L Alkaline Phosphatase 149 H LD Total 323 H Total Protein 5.4 L Albumin 2.0 L Stool Occult Blood Blood Type Antibody Screen Crossmatch 06/29/20 06/29/20 06/29/20 05:00 05:15 06:30 WBC RBC Hgb Hct MCV MCH MCHC RDW Plt Count MPV Absolute Neuts (auto) Total Counted Neutrophils % Neutrophils % (Manual) Band Neutrophils % Lymphocytes % Lymphocytes % (Manual) Monocytes % Monocytes % (Manual) Eosinophils % Eosinophils % (Manual) Basophils % Basophils % (Manual) Myelocytes % (Man) Promyelocytes % (Man) Blast Cells % (Manual) Nucleated RBC % Metamyelocytes Hypochromia Platelet Estimate Platelet Comment Polychromasia Poikilocytosis Anisocytosis Microcytosis Macrocytosis Target Cells Tear Drop Cells Ovalocytes PT with INR INR PTT (Actin FS) Fibrinogen 401.0 D-Dimer Anticoagulation Therapy No Result Required. Puncture Site Right radial Patient Temperature 100.9 ABG pH 7.234 L ABG pCO2 33.40 L ABG pO2 102.8 H ABG HCO3 13.8 L ABG O2 Sat (Measured) 96.8 ABG O2 Content No Result Required. ABG Base Excess -12.6 L Rhett Test Positive Patient On Oxygen Yes O2 Delivery Device Vent Oxygen Flow Rate 50% Vent Mode A/c Vent Rate 24 Mechanical Rate Yes PEEP 6.0 Pressure Support Vent 480 Sodium Potassium Chloride Carbon Dioxide Anion Gap BUN Creatinine Est GFR (CKD-EPI)AfAm Est GFR (CKD-EPI)NonAf Random Glucose Uric Acid Calcium Phosphorus Magnesium Ferritin Total Bilirubin AST ALT Alkaline Phosphatase LD Total Total Protein Albumin Stool Occult Blood Negative Blood Type Antibody Screen Crossmatch Active Medications Generic Name Dose Route Start Last Admin Trade Name Freq PRN Reason Stop Dose Admin Acetaminophen 1,000 mg 06/28/20 17:13 06/28/20 18:00 Ofirmev Injection - IVPB 06/29/20 17:14 1,000 mg Q8H PRN Administration FEVER Allopurinol 300 mg 06/20/20 10:00 06/29/20 10:16 Zyloprim - PO 300 mg DAILY ERMELINDA Administration Amino Acids 30 ml 06/22/20 17:30 06/29/20 08:40 Prosource No Carb Liquid Pkt PO 30 ml BID@0800,1730 ERMELINDA Administration Artificial Tears 1 drop 06/20/20 10:00 06/29/20 10:20 Artificial Tears OU 1 drop DAILY ERMELINDA Administration Atorvastatin Calcium 20 mg 06/19/20 22:00 06/28/20 20:59 Lipitor - PO 20 mg HS ERMELINDA Administration Docusate Sodium 100 mg 06/22/20 08:55 06/28/20 21:00 Colace Liquid - PO 100 mg Q8H PRN Administration CONSTIPATION Hydrocortisone Sodium Succinate 50 mg 06/24/20 13:15 06/29/20 01:05 Solu-Cortef - IVPUSH 50 mg Q12H ERMELINDA Administration Hydroxyurea 500 mg 06/27/20 22:00 06/29/20 10:16 Hydrea - PO 500 mg BID ERMELINDA Administration Propofol 1,000,000 mcg in 100 mls @ 2.618 mls/hr 06/20/20 00:30 06/29/20 06:15 Diprivan - IVPB 50 mcg/kg/min TITR ERMELINDA 26.181 mls/hr Titration Protocol 5 MCG/KG/MIN Vasopressin 40 units/ Sodium 100 mls @ 5 mls/hr 06/20/20 06:30 06/29/20 05:50 Chloride IVPB 2 units/hr ASDIR ERMELINDA 5 mls/hr Administration Protocol 2 UNITS/HR Norepinephrine Bitartrate 16, 500 mls @ 9.375 mls/hr 06/20/20 08:00 06/29/20 05:50 000 mcg/ Sodium Chloride IV 24 mcg/min TITR ERMELINDA 45 mls/hr Titration Protocol 5 MCG/MIN Metronidazole 500 mg in 100 mls @ 100 mls/hr 06/21/20 18:00 06/29/20 10:19 Flagyl 500mg Premixed Ivpb - IVPB 100 mls/hr Q8H-IV ERMELINDA Administration Midazolam HCl 100 mg in 100 mls @ 1 mls/hr 06/26/20 22:30 06/28/20 22:30 Midazolam 100mg/100ml-0.9%Nacl IVPB Not Given TITR ERMELINDA Protocol 1 MG/HR Fentanyl 500 mcg in 100 mls @ 0.2 mls/hr 06/27/20 06:04 06/29/20 10:00 Sublimaze Ivpb IVPB 100 mcg/hr TITR ERMELINDA 20 mls/hr Administration 1 MCG/HR Cefepime HCl 1 gm/ Dextrose 50 mls @ 100 mls/hr 06/28/20 22:00 06/29/20 10:17 IVPB 100 mls/hr BID ERMELINDA Administration Protocol Sodium Chloride 1,000 mls @ 50 mls/hr 06/28/20 16:15 06/28/20 17:00 Normal Saline - IV 50 mls/hr ASDIR ERMELINDA Administration Pantoprazole Sodium 40 mg 06/21/20 10:00 06/29/20 10:16 Protonix Iv IVPUSH 40 mg DAILY ERMELINDA Administration Polyethylene Glycol 17 gm 06/19/20 22:00 06/29/20 10:21 Miralax (For Daily Use) - PO Not Given BID ERMELINDA ASSESSMENT/PLAN: 70 yo male pmh of htn, hld, 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 Pt intubatedd on 06/19 for hypoxic resp failure Neuro -Pt sedated on Propofol -CAT scan to be done when stable -Daily sedation vacations to assess mental status Cardio: -Last echo of 06/15/20 normal -Edema likly due to low oncotic pressure from hypoalbuminemia -Foresemide dc -Edema may be fixed with transfusion due to third spacing -Pt on levo 24mcg and vasopressin 2mcg due to hypotension pt will monitor for MAP<65 -HTN: Metoprolol and lisinopril dc -Hyperlipidemia: Atorvastatin dc Resp: #ACUTE HYPOXIC RESPIRATORY FAILURE - Pt vented on RR 24, TV:480, PEEP 6, FiO2: 50% - Monitor LDH, uric acid - titrate pressors to maintain MAP >65 - titrate FiO2 to keep SpO2 >90% - continue volume assist control Renal: #Acute Kidney Injury -Nephro consulted and recommendations made -renal function stable -d/c shiley cath on 06/23 - monitor urine output, creatinine, K, phos - titrate pressors to maintain MAP >65 - taper stress dose steroids - pt has increased kidney failure - give lasix for overload - start sevelemer - renal function worsening - likely atn Heme Onc: -Heme Onc consulted and recommendations made on CML to AML. 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 On Neppro ID -ON Cefazolin 1g (started 06/29) flaggyl 500 mg q8hrs (06/21) -Vanco dc due to observed therapeutic peak - Tylenol prn 1000 every 8 hrs - Blood cultures recultured on 06/27, no organism growth obtained - Recultured Urine FEN: - Continue volum assist - Hypokalemia improved. Continue to monitor lytes and replete prn - Continue enteral feed Prophylaxis - Heparin 5000 TID - Protonix for PUD #DISPOSITION: -Continue ICU monitoring -Continue discussion regarding goal of care-family meeting afternoon between sister, his usman Aragon, Palliative , ICU primary team and us to discuss GOC and plan moving forward. Visit type - Emergency Visit Emergency Visit: Yes ED Registration Date: 06/14/20 Care time: The patient presented to the Emergency Department on the above date and was hospitalized for further evaluation of their emergent condition. - New Patient This patient is new to me today: No - Critical Care Critical Care patient: Yes Total Critical Care Time (in minutes): 36 Critical Care Statement: The care of this patient involved high complexity decision making to prevent further life threatening deterioration of the patient's condition and/or to evaluate & treat vital organ system(s) failure or risk of failure. - Medication Review Med list reviewed for High Risk Meds patients 65 and older: Yes ATTENDING PHYSICIAN STATEMENT I saw and evaluated the patient. I reviewed the resident's note and discussed the case with the resident. I agree with the resident's findings and plan as documented. SUBJECTIVE: OBJECTIVE: ASSESSMENT AND PLAN:
[2020-06-29 13:18] VITALS: BMI 30.5
--- NOTE | 2020-06-29 13:57 | PN ---
Progress Note, Physician History of Present Illness: Pt seen and examined at bedside. He remains in the ICU. He remains intubated. - Current Medication List Current Medications: Active Medications Acetaminophen (Ofirmev Injection -) 1,000 mg IVPB Q8H PRN PRN Reason: FEVER Stop: 06/29/20 17:14 Last Admin: 06/28/20 18:00 Dose: 1,000 mg Documented by: Allopurinol (Zyloprim -) 300 mg PO DAILY ERMELINDA Last Admin: 06/29/20 10:16 Dose: 300 mg Documented by: Amino Acids (Prosource No Carb Liquid Pkt) 30 ml PO BID@0800,1730 ERMELINDA Last Admin: 06/29/20 08:40 Dose: 30 ml Documented by: Artificial Tears (Artificial Tears) 1 drop OU DAILY ERMELINDA Last Admin: 06/29/20 10:20 Dose: 1 drop Documented by: Atorvastatin Calcium (Lipitor -) 20 mg PO HS ERMELINDA Last Admin: 06/28/20 20:59 Dose: 20 mg Documented by: Docusate Sodium (Colace Liquid -) 100 mg PO Q8H PRN PRN Reason: CONSTIPATION Last Admin: 06/28/20 21:00 Dose: 100 mg Documented by: Hydrocortisone Sodium Succinate (Solu-Cortef -) 50 mg IVPUSH Q12H ERMELINDA Last Admin: 06/29/20 13:01 Dose: 50 mg Documented by: Hydroxyurea (Hydrea -) 500 mg PO BID ERMELINDA Last Admin: 06/29/20 10:16 Dose: 500 mg Documented by: Propofol (Diprivan -) 1,000,000 mcg in 100 mls @ 2.618 mls/hr IVPB TITR ERMELINDA; Protocol Last Titration: 06/29/20 06:15 Dose: 50 mcg/kg/min, 26.181 mls/hr Documented by: Vasopressin 40 units/ Sodium (Chloride) 100 mls @ 5 mls/hr IVPB ASDIR ERMELINDA; Protocol Last Admin: 06/29/20 05:50 Dose: 2 units/hr, 5 mls/hr Documented by: Norepinephrine Bitartrate 16, (000 mcg/ Sodium Chloride) 500 mls @ 9.375 mls/hr IV TITR ERMELINDA; Protocol Last Titration: 06/29/20 05:50 Dose: 24 mcg/min, 45 mls/hr Documented by: Metronidazole (Flagyl 500mg Premixed Ivpb -) 500 mg in 100 mls @ 100 mls/hr IVPB Q8H-IV ERMELINDA Last Admin: 06/29/20 10:19 Dose: 100 mls/hr Documented by: Midazolam HCl (Midazolam 100mg/100ml-0.9%Nacl) 100 mg in 100 mls @ 1 mls/hr IVPB TITR ERMELINDA; Protocol Last Admin: 06/28/20 22:30 Dose: Not Given Documented by: Fentanyl (Sublimaze Ivpb) 500 mcg in 100 mls @ 0.2 mls/hr IVPB TITR ERMELINDA Last Admin: 06/29/20 10:00 Dose: 100 mcg/hr, 20 mls/hr Documented by: Cefepime HCl 1 gm/ Dextrose 50 mls @ 100 mls/hr IVPB BID ERMELINDA; Protocol Last Admin: 06/29/20 10:17 Dose: 100 mls/hr Documented by: Sodium Chloride (Normal Saline -) 1,000 mls @ 50 mls/hr IV ASDIR ERMELINDA Last Admin: 06/28/20 17:00 Dose: 50 mls/hr Documented by: Pantoprazole Sodium (Protonix Iv) 40 mg IVPUSH DAILY ERMELINDA Last Admin: 06/29/20 10:16 Dose: 40 mg Documented by: Polyethylene Glycol (Miralax (For Daily Use) -) 17 gm PO BID ERMELINDA Last Admin: 06/29/20 10:21 Dose: Not Given Documented by: - Objective Vital Signs: Vital Signs Temperature 96.5 F L 06/29/20 10:00 Pulse Rate 87 06/29/20 12:00 Respiratory Rate 24 H 06/29/20 12:00 Blood Pressure 94/40 L 06/29/20 12:00 O2 Sat by Pulse Oximetry (%) 96 06/29/20 12:00 Constitutional: Yes: Calm Eyes: Yes: Conjunctiva Clear HENT: Yes: Atraumatic Cardiovascular: Yes: S1, S2 Respiratory: Yes: Mechanically Ventilated Gastrointestinal: Yes: Soft Genitourinary: Yes: García Present Edema: Yes Edema: LUE: 2+, RUE: 2+, LLE: 2+, RLE: 2+ Neurological: Yes: Lethargy Labs: CBC, BMP 06/29/20 05:00 06/29/20 05:00 INR, PTT INR 1.58 (0.83-1.09) H 06/29/20 05:00 Fibrinogen 401.0 mg/dL (238-498) 06/29/20 05:00 - ....Imaging Chest X-ray: Report Reviewed Problem List - Problems (1) AML (acute myeloblastic leukemia) Code(s): C92.00 - ACUTE MYELOBLASTIC LEUKEMIA, NOT HAVING ACHIEVED REMISSION (2) CHF (congestive heart failure) Code(s): I50.9 - HEART FAILURE, UNSPECIFIED (3) CML (chronic myelocytic leukemia) Code(s): C92.10 - CHRONIC MYELOID LEUK, BCR/ABL-POSITIVE, NOT ACHIEVE REMIS Assessment/Plan Current Medications Generic Name Dose Route Start Last Admin Trade Name Freq PRN Reason Stop Dose Admin Acetaminophen 1,000 mg 06/28/20 17:13 06/28/20 18:00 Ofirmev Injection - IVPB 06/29/20 17:14 1,000 mg Q8H PRN Administration FEVER Allopurinol 300 mg 06/20/20 10:00 06/29/20 10:16 Zyloprim - PO 300 mg DAILY ERMELINDA Administration Amino Acids 30 ml 06/22/20 17:30 06/29/20 08:40 Prosource No Carb Liquid Pkt PO 30 ml BID@0800,1730 ERMELINDA Administration Artificial Tears 1 drop 06/20/20 10:00 06/29/20 10:20 Artificial Tears OU 1 drop DAILY ERMELINDA Administration Atorvastatin Calcium 20 mg 06/19/20 22:00 06/28/20 20:59 Lipitor - PO 20 mg HS ERMELINDA Administration Docusate Sodium 100 mg 06/22/20 08:55 06/28/20 21:00 Colace Liquid - PO 100 mg Q8H PRN Administration CONSTIPATION Hydrocortisone Sodium Succinate 50 mg 06/24/20 13:15 06/29/20 13:01 Solu-Cortef - IVPUSH 50 mg Q12H ERMELINDA Administration Hydroxyurea 500 mg 06/27/20 22:00 06/29/20 10:16 Hydrea - PO 500 mg BID ERMELINDA Administration Propofol 1,000,000 mcg in 100 mls @ 2.618 mls/hr 06/20/20 00:30 06/29/20 06:15 Diprivan - IVPB 50 mcg/kg/min TITR ERMELINDA 26.181 mls/hr Titration Protocol 5 MCG/KG/MIN Vasopressin 40 units/ Sodium 100 mls @ 5 mls/hr 06/20/20 06:30 06/29/20 05:50 Chloride IVPB 2 units/hr ASDIR ERMELINDA 5 mls/hr Administration Protocol 2 UNITS/HR Norepinephrine Bitartrate 16, 500 mls @ 9.375 mls/hr 06/20/20 08:00 06/29/20 05:50 000 mcg/ Sodium Chloride IV 24 mcg/min TITR ERMELINDA 45 mls/hr Titration Protocol 5 MCG/MIN Metronidazole 500 mg in 100 mls @ 100 mls/hr 06/21/20 18:00 06/29/20 10:19 Flagyl 500mg Premixed Ivpb - IVPB 100 mls/hr Q8H-IV ERMELINDA Administration Midazolam HCl 100 mg in 100 mls @ 1 mls/hr 06/26/20 22:30 06/28/20 22:30 Midazolam 100mg/100ml-0.9%Nacl IVPB Not Given TITR ERMELINDA Protocol 1 MG/HR Fentanyl 500 mcg in 100 mls @ 0.2 mls/hr 06/27/20 06:04 06/29/20 10:00 Sublimaze Ivpb IVPB 100 mcg/hr TITR ERMELINDA 20 mls/hr Administration 1 MCG/HR Cefepime HCl 1 gm/ Dextrose 50 mls @ 100 mls/hr 06/28/20 22:00 06/29/20 10:17 IVPB 100 mls/hr BID ERMELINDA Administration Protocol Sodium Chloride 1,000 mls @ 50 mls/hr 06/28/20 16:15 06/28/20 17:00 Normal Saline - IV 50 mls/hr ASDIR ERMELINDA Administration Pantoprazole Sodium 40 mg 06/21/20 10:00 06/29/20 10:16 Protonix Iv IVPUSH 40 mg DAILY ERMELINDA Administration Polyethylene Glycol 17 gm 06/19/20 22:00 06/29/20 10:21 Miralax (For Daily Use) - PO Not Given BID ERMELINDA Impression 1. CKD 2. CML 3. AML 4. pleural effusions 5. htn 6. tumor lysis 7. charisse 8. hyperkalemia 9. acuter resp failure Plan - give lasix for overload - start sevelemer - renal function worsening - likely atn - monitor for HD - discuss GOC - vent support - monitor lytes - cont ICU care
--- NOTE | 2020-06-29 14:23 | PN ---
Physical Exam: SUBJECTIVE: Patient seen and examined. Intubated, sedated. On pressors. Still with fevers. OBJECTIVE: Vital Signs Temperature 96.5 F L 06/29/20 10:00 Pulse Rate 87 06/29/20 12:00 Respiratory Rate 24 H 06/29/20 12:00 Blood Pressure 94/40 L 06/29/20 12:00 O2 Sat by Pulse Oximetry (%) 96 06/29/20 12:00 GENERAL: The patient is intubated, sedated ENT: dry mucous membranes, ET tube in place NECK: supple LUNGS: vented breath sounds b/l, decreased breath sounds bilateral bases HEART: Regular rate and rhythm, S1, S2 ABDOMEN: distended, does not grimace on palpation, hypoactive bowel sounds EXTREMITIES: 2+ pulses, warm, well-perfused, +2 b/l pitting edema SKIN: Warm, dry, normal turgor Laboratory Results - last 24 hr 06/28/20 06/28/20 06/29/20 08:45 18:15 05:00 WBC 62.6 H* 53.7 H* RBC 2.64 L 2.54 L Hgb 7.0 L 6.8 L* Hct 22.9 L 21.8 L MCV 86.7 85.7 MCH 26.7 26.8 MCHC 30.7 L 31.2 L RDW 19.6 H 19.6 H Plt Count 41 L D 38 L MPV 10.7 10.8 Absolute Neuts (auto) 55.7 H 48.5 H Total Counted 100 Neutrophils % 88.9 H D 90.2 H Neutrophils % (Manual) 62.0 D 61.5 Band Neutrophils % 6.0 0.0 Lymphocytes % 9.4 D 7.4 L D Lymphocytes % (Manual) 12.0 D 10.4 Monocytes % 1.2 L D 0.9 L Monocytes % (Manual) 4 D 5 Eosinophils % 0.1 D 0.9 D Eosinophils % (Manual) 4.0 D 1.1 Basophils % 0.4 D 0.6 Basophils % (Manual) 0.0 Myelocytes % (Man) 3 H D 13 H D Promyelocytes % (Man) 3 H D Blast Cells % (Manual) 7 H D 3 H D Nucleated RBC % 3 H 0 Metamyelocytes 2 D 3 H D Hypochromia 2+ 0 Platelet Estimate Decreased Decreased Platelet Comment No clumping noted Polychromasia 2+ 0 Poikilocytosis 1+ 1+ Anisocytosis 2+ 1+ Microcytosis 2+ 0 Macrocytosis 1+ Target Cells 1+ Tear Drop Cells 1+ Ovalocytes 1+ PT with INR INR PTT (Actin FS) Fibrinogen D-Dimer Anticoagulation Therapy Puncture Site Patient Temperature ABG pH ABG pCO2 ABG pO2 ABG HCO3 ABG O2 Sat (Measured) ABG O2 Content ABG Base Excess Rhett Test Patient On Oxygen O2 Delivery Device Oxygen Flow Rate Vent Mode Vent Rate Mechanical Rate PEEP Pressure Support Vent Sodium Potassium Chloride Carbon Dioxide Anion Gap BUN Creatinine Est GFR (CKD-EPI)AfAm Est GFR (CKD-EPI)NonAf Random Glucose Uric Acid Calcium Phosphorus Magnesium Ferritin Total Bilirubin AST ALT Alkaline Phosphatase LD Total Total Protein Albumin Stool Occult Blood Blood Type O POSITIVE Antibody Screen Negative Crossmatch See Detail 06/29/20 06/29/20 06/29/20 05:00 05:00 05:00 WBC RBC Hgb Hct MCV MCH MCHC RDW Plt Count MPV Absolute Neuts (auto) Total Counted Neutrophils % Neutrophils % (Manual) Band Neutrophils % Lymphocytes % Lymphocytes % (Manual) Monocytes % Monocytes % (Manual) Eosinophils % Eosinophils % (Manual) Basophils % Basophils % (Manual) Myelocytes % (Man) Promyelocytes % (Man) Blast Cells % (Manual) Nucleated RBC % Metamyelocytes Hypochromia Platelet Estimate Platelet Comment Polychromasia Poikilocytosis Anisocytosis Microcytosis Macrocytosis Target Cells Tear Drop Cells Ovalocytes PT with INR 18.70 H INR 1.58 H PTT (Actin FS) 32.3 Fibrinogen D-Dimer 9636 H Anticoagulation Therapy Puncture Site Patient Temperature ABG pH ABG pCO2 ABG pO2 ABG HCO3 ABG O2 Sat (Measured) ABG O2 Content ABG Base Excess Rhett Test Patient On Oxygen O2 Delivery Device Oxygen Flow Rate Vent Mode Vent Rate Mechanical Rate PEEP Pressure Support Vent Sodium 134 L Potassium 4.5 Chloride 105 Carbon Dioxide 17 L Anion Gap 12 BUN 112.5 H* Creatinine 3.5 H Est GFR (CKD-EPI)AfAm 19.21 Est GFR (CKD-EPI)NonAf 16.58 Random Glucose 124 H Uric Acid 7.4 H Calcium 7.6 L Phosphorus 6.7 H Magnesium 2.0 Ferritin 6265.1 H Total Bilirubin 0.8 AST 29 ALT 9 L Alkaline Phosphatase 149 H LD Total 323 H Total Protein 5.4 L Albumin 2.0 L Stool Occult Blood Blood Type Antibody Screen Crossmatch 06/29/20 06/29/20 06/29/20 05:00 05:15 06:30 WBC RBC Hgb Hct MCV MCH MCHC RDW Plt Count MPV Absolute Neuts (auto) Total Counted Neutrophils % Neutrophils % (Manual) Band Neutrophils % Lymphocytes % Lymphocytes % (Manual) Monocytes % Monocytes % (Manual) Eosinophils % Eosinophils % (Manual) Basophils % Basophils % (Manual) Myelocytes % (Man) Promyelocytes % (Man) Blast Cells % (Manual) Nucleated RBC % Metamyelocytes Hypochromia Platelet Estimate Platelet Comment Polychromasia Poikilocytosis Anisocytosis Microcytosis Macrocytosis Target Cells Tear Drop Cells Ovalocytes PT with INR INR PTT (Actin FS) Fibrinogen 401.0 D-Dimer Anticoagulation Therapy No Result Required. Puncture Site Right radial Patient Temperature 100.9 ABG pH 7.234 L ABG pCO2 33.40 L ABG pO2 102.8 H ABG HCO3 13.8 L ABG O2 Sat (Measured) 96.8 ABG O2 Content No Result Required. ABG Base Excess -12.6 L Rhett Test Positive Patient On Oxygen Yes O2 Delivery Device Vent Oxygen Flow Rate 50% Vent Mode A/c Vent Rate 24 Mechanical Rate Yes PEEP 6.0 Pressure Support Vent 480 Sodium Potassium Chloride Carbon Dioxide Anion Gap BUN Creatinine Est GFR (CKD-EPI)AfAm Est GFR (CKD-EPI)NonAf Random Glucose Uric Acid Calcium Phosphorus Magnesium Ferritin Total Bilirubin AST ALT Alkaline Phosphatase LD Total Total Protein Albumin Stool Occult Blood Negative Blood Type Antibody Screen Crossmatch Active Medications Generic Name Dose Route Start Last Admin Trade Name Jake PRN Reason Stop Dose Admin Acetaminophen 1,000 mg 06/28/20 17:13 06/28/20 18:00 Ofirmev Injection - IVPB 06/29/20 17:14 1,000 mg Q8H PRN Administration FEVER Allopurinol 300 mg 06/20/20 10:00 06/29/20 10:16 Zyloprim - PO 300 mg DAILY ERMELINDA Administration Amino Acids 30 ml 06/22/20 17:30 06/29/20 08:40 Prosource No Carb Liquid Pkt PO 30 ml BID@0800,1730 ERMELINDA Administration Artificial Tears 1 drop 06/20/20 10:00 06/29/20 10:20 Artificial Tears OU 1 drop DAILY ERMELINDA Administration Atorvastatin Calcium 20 mg 06/19/20 22:00 06/28/20 20:59 Lipitor - PO 20 mg HS ERMELINDA Administration Docusate Sodium 100 mg 06/22/20 08:55 06/28/20 21:00 Colace Liquid - PO 100 mg Q8H PRN Administration CONSTIPATION Hydrocortisone Sodium Succinate 50 mg 06/24/20 13:15 06/29/20 13:01 Solu-Cortef - IVPUSH 50 mg Q12H ERMELINDA Administration Hydroxyurea 500 mg 06/27/20 22:00 06/29/20 10:16 Hydrea - PO 500 mg BID ERMELINDA Administration Propofol 1,000,000 mcg in 100 mls @ 2.618 mls/hr 06/20/20 00:30 06/29/20 06:15 Diprivan - IVPB 50 mcg/kg/min TITR ERMELINDA 26.181 mls/hr Titration Protocol 5 MCG/KG/MIN Vasopressin 40 units/ Sodium 100 mls @ 5 mls/hr 06/20/20 06:30 06/29/20 05:50 Chloride IVPB 2 units/hr ASDIR ERMELINDA 5 mls/hr Administration Protocol 2 UNITS/HR Norepinephrine Bitartrate 16, 500 mls @ 9.375 mls/hr 06/20/20 08:00 06/29/20 05:50 000 mcg/ Sodium Chloride IV 24 mcg/min TITR ERMELINDA 45 mls/hr Titration Protocol 5 MCG/MIN Metronidazole 500 mg in 100 mls @ 100 mls/hr 06/21/20 18:00 06/29/20 10:19 Flagyl 500mg Premixed Ivpb - IVPB 100 mls/hr Q8H-IV ERMELINDA Administration Midazolam HCl 100 mg in 100 mls @ 1 mls/hr 06/26/20 22:30 06/28/20 22:30 Midazolam 100mg/100ml-0.9%Nacl IVPB Not Given TITR ERMELINDA Protocol 1 MG/HR Fentanyl 500 mcg in 100 mls @ 0.2 mls/hr 06/27/20 06:04 06/29/20 10:00 Sublimaze Ivpb IVPB 100 mcg/hr TITR ERMELINDA 20 mls/hr Administration 1 MCG/HR Cefepime HCl 1 gm/ Dextrose 50 mls @ 100 mls/hr 06/28/20 22:00 06/29/20 10:17 IVPB 100 mls/hr BID ERMELINDA Administration Protocol Sodium Chloride 1,000 mls @ 50 mls/hr 06/28/20 16:15 06/28/20 17:00 Normal Saline - IV 50 mls/hr ASDIR ERMELINDA Administration Pantoprazole Sodium 40 mg 06/21/20 10:00 06/29/20 10:16 Protonix Iv IVPUSH 40 mg DAILY ERMELINDA Administration Polyethylene Glycol 17 gm 06/19/20 22:00 06/29/20 10:21 Miralax (For Daily Use) - PO Not Given BID ERMELINDA Sevelamer Carbonate 2.4 gm 06/29/20 17:30 Renvela Powder Packet - PO TIDCM ERMELINDA ASSESSMENT/PLAN: Patient is a 70 year old male with past medical history of HTN, HLD, CKD, 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 We have been consulted for further evaluation of CMML. 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 Splenomegaly. -WBC 198k, ANC [id number] on admission -Rasburicase 6mg x1 on admission, then Hydrea 1000mg bid started 06/14 -G6PD level not deficient -Allopurinol dose to 300mg daily -Completed 5 doses of Decitabine 06/14 - 06/19 -CT AP 06/18 - Right > Left pleural effusion, marked splenomegaly with perisplenic fluid collection, sigmoid diverticulosis -patient started having fevers with Tmax of 104.7, with rising K and Phos 06/19 -Rasburicase 2nd dose given 06/19, Hydrea held due to ongoing tumor lysis -Intubated 06/19 for hypoxic respiratory failure, Dialysis 06/20 -Renvela for elevated phos -blood cultures negative -continue Cefepime/flagyl -Anemia - Transfuse to keep Hgb > 7 -Transfuse for bleeding or platelets < 20,000 as patient febrile and platelets d ysfunctional -WBC, with blast trending up, Hydrea 500mg bid re started 06/27 -monitor CBC, CMP, LDH, uric acid daily, and DIC labs as well - PT/PTT/fibrinogen -pulm consulted. recs appreciated. -cardio consulted. recs appreciated. -ID consulted. recs appreciated. -nephro consulted. recs appreciated. Visit type - Emergency Visit Emergency Visit: Yes ED Registration Date: 06/14/20 Care time: The patient presented to the Emergency Department on the above date and was hospitalized for further evaluation of their emergent condition. - New Patient This patient is new to me today: No - Critical Care Critical Care patient: Yes Total Critical Care Time (in minutes): 35 Critical Care Statement: The care of this patient involved high complexity decision making to prevent further life threatening deterioration of the patient's condition and/or to evaluate & treat vital organ system(s) failure or risk of failure. - Medication Review Med list reviewed for High Risk Meds patients 65 and older: Yes ATTENDING PHYSICIAN STATEMENT I saw and evaluated the patient. I reviewed the resident's note and discussed the case with the resident. I agree with the resident's findings and plan as documented. SUBJECTIVE: OBJECTIVE: ASSESSMENT AND PLAN:
[2020-06-29] MEDS ORDERED: PROPOFOL 1,000,000 MCG/100 ML VIAL ONE (17:04)
--- NOTE | 2020-06-29 17:45 | PN ---
Progress Note (short form) - Note Progress Note: remains intubated intermittent fevers less urine output pressors unchanged Vital Signs Period Temp Pulse Resp BP Sys/Carrillo Pulse Ox Last 24 Hr 96.5 F-100.8 F 86-108 19-30 85-117/40-55 96-100 cor-rrr lungs decreased bs at bases abd soft, nt ext +edema CBC, BMP 06/29/20 05:00 06/29/20 05:00 Microbiology 06/28/20 13:22 Blood - Peripheral Venous Blood Culture - Preliminary NO GROWTH OBTAINED AFTER 24 HOURS, INCUBATION TO CONTINUE FOR 4 DAYS. 06/28/20 13:05 Blood - Peripheral Venous Blood Culture - Preliminary NO GROWTH OBTAINED AFTER 24 HOURS, INCUBATION TO CONTINUE FOR 4 DAYS. 06/22/20 15:30 Blood - Peripheral Venous Blood Culture - Final NO GROWTH AFTER 5 DAYS INCUBATION 06/22/20 15:30 Blood - Peripheral Venous Blood Culture - Final NO GROWTH AFTER 5 DAYS INCUBATION 06/20/20 15:00 Blood - Peripheral Venous Blood Culture - Final NO GROWTH AFTER 5 DAYS INCUBATION 06/19/20 21:36 Blood - Peripheral Venous Blood Culture - Final NO GROWTH AFTER 5 DAYS INCUBATION 06/20/20 11:50 Sputum - Endotrachea Suction/Ventilator Gram Stain - Final 06/20/20 11:50 Sputum - Endotrachea Suction/Ventilator Sputum Culture - Final NORMAL RESPIRATORY LYNDA 06/20/20 10:50 Urine - Urine - Catheterized Urine Culture - Final NO GROWTH OBTAINED 06/20/20 10:50 Urine For Antigen Detection Legionella Antigen - Final 06/20/20 10:50 Urine For Antigen Detection Streptococcus pneumoniae Antigen (M - Final 06/14/20 01:10 Blood - Peripheral Venous Blood Culture - Final NO GROWTH AFTER 5 DAYS INCUBATION 06/14/20 01:10 Blood - Peripheral Venous Blood Culture - Final NO GROWTH AFTER 5 DAYS INCUBATION 06/14/20 01:10 Urine - Urine Clean Catch Urine Culture - Final Staphylococcus Haemolyticus Group D Strep Or Entero Coccus a/p fevers improved resp failure AML s/p chemo- renal function worsening tumorlysis syndrome anemia thrombocytopenia pen allergy adjust antiiboitics for renal failure reculture Problem List - Problems (1) AML (acute myeloblastic leukemia) Code(s): C92.00 - ACUTE MYELOBLASTIC LEUKEMIA, NOT HAVING ACHIEVED REMISSION (2) Shortness of breath Code(s): R06.02 - SHORTNESS OF BREATH
[2020-06-29] MEDS: NOREPINEPHRINE BITARTRATE 16,000 MCG in SODIUM CHLORIDE 484 ML IV SCH ×2 (18:00)
--- NOTE | 2020-06-29 18:08 | PN ---
Teaching Attending Note Name of Resident: Alee Nelson ATTENDING PHYSICIAN STATEMENT I saw and evaluated the patient. I reviewed the resident's note and discussed the case with the resident. I agree with the resident's findings and plan as documented. ASSESSMENT AND PLAN: 70 y/o gentleman with sAML (transformed from CMML). S/p 5 days hypomethylating agent (Decitabine), now with hypotension, requiring inotropic support, intubated and ventilated. Concern about TLS previously, s/p rasburicase X2 and now on allopurinol. Recommend: 1) Blood product support. Hb>7, Plts>20,000 2) Blasts decreasing 3% today. On hydroxyurea 500 mg BID 3) TMax 100.8. Flagyl. Joe ID note.
[2020-06-29] MEDS: SEVELAMER CARBONATE 2.4 GM POWDER PACKET PO SCH (18:30)
[2020-06-29] MEDS: SODIUM CHLORIDE 1,000 ML IV SCH (19:07)
[2020-06-29] MEDS: ATORVASTATIN CA 20 MG TABLET (FP) PO SCH (21:21)
[2020-06-30] MEDS: PROPOFOL 1,000,000 MCG/100 ML VIAL IVPB SCH (00:57)
[2020-06-30] MEDS: HYDROCORTISONE SOD SUCCINATE 100 MG/2 ML VIAL IVPUSH SCH ×4 (01:36→23:29)
[2020-06-30 06:31] LABS: ARTERIAL BLD GAS O2 SATURATION 64.8 mmHg (95-98); ARTERIAL BLOOD GAS BASE EXCESS -15.5 mmol/L (-2-2); ARTERIAL BLOOD GAS PO2 44.4 mmHg (80-100)
[2020-06-30 06:45] LABS: ALLENS TEST POSITIVE
[2020-06-30 06:46] LABS: VENT MODE A/C; VENT RATE 24
[2020-06-30 06:48] LABS: ARTERIAL BLOOD GAS pH 7.109 (7.350-7.450)
[2020-06-30] MEDS: FENTANYL NS IVPB 500 MCG/100 ML BAG IVPB SCH (07:00)
[2020-06-30] MEDS ORDERED: SODIUM BICARBONATE 8.4% 50 MEQ/50 ML DISP.SYRIN IVPUSH ONE ×5 (07:00→22:54)
[2020-06-30] MEDS: VASOPRESSIN 40 UNITS in SODIUM CHLORIDE 98 ML IVPB SCH (07:00)
[2020-06-30] MEDS ORDERED: FENTANYL NS IVPB 500 MCG/100 ML BAG IVPB ONE ×2 (07:07→18:41)
[2020-06-30 07:20] LABS: EOS % 0.1 % (0-4.5); HEMATOCRIT 24.6 % (35.4-49); HEMOGLOBIN 7.8 GM/dL (11.7-16.9); LYMPH % 9.2 % (8-40); MCHC 31.6 g/dl (32.0-35.9); MEAN CELL VOLUME 85.6 fl (80-96); MEAN PLT VOLUME 10.2 fl (7.5-11.1); MONO % 34.4 % (3.8-10.2); NEUT % 55.3 % (42.8-82.8); PLATELET COUNT 42 K/MM3 (134-434); RBC 2.88 M/mm3 (4.00-5.60); RDW 19.1 % (11.9-15.9)
[2020-06-30 07:24] LABS: INR 1.54 (0.83-1.09); PROTHROMBIN TIME (PATIENT) 18.3 SEC (9.7-13.0)
[2020-06-30 07:25] LABS: ACTIVATED PTT 30.9 SECONDS (25.2-36.5)
[2020-06-30 07:39] LABS: ALBUMIN 1.9 g/dl (3.4-5.0); ALK PHOS 148 U/L (45-117); ANION GAP 15 MMOL/L (8-16); BILIRUBIN,TOTAL 0.8 mg/dL (0.2-1); CALCIUM 7.1 mg/dL (8.5-10.1); CHLORIDE 104 mmol/L (98-107); CO2 15 mmol/L (21-32); CREATININE 4.2 mg/dL (0.55-1.3); GLUCOSE,RANDOM 95 mg/dL (74-106); MAGNESIUM 2.2 mg/dL (1.8-2.4); POTASSIUM 4.9 mmol/L (3.5-5.1); SGOT/AST 47 U/L (15-37); SODIUM 133 mmol/L (136-145); TOT PROT 5.5 g/dl (6.4-8.2)
[2020-06-30 07:40] LABS: WHITE BLOOD COUNT 57.8 K/mm3 (4.0-10.0)
[2020-06-30 07:43] LABS: SGPT/ALT 12 U/L (13-61)
[2020-06-30 08:09] LABS: BLOOD UREA NITROGEN 118.7 mg/dL (7-18); PHOSPHOROUS > 9.0 mg/dL (2.5-4.9)
[2020-06-30] MEDS: SEVELAMER CARBONATE 2.4 GM POWDER PACKET PO SCH ×3 (08:14→16:38)
[2020-06-30] MEDS: AMINO ACIDS/PROTEIN HYDROLYS 30 ML LIQUID.PKT PO SCH ×2 (08:14→16:39)
[2020-06-30] MEDS: NOREPINEPHRINE BITARTRATE 16,000 MCG in SODIUM CHLORIDE 484 ML IV SCH (08:14)
[2020-06-30] MEDS ORDERED: CEFEPIME HCL 1 GM VIAL (RESTRICTED TO ID) ONE (08:37)
[2020-06-30] MEDS ORDERED: DEXTROSE 5%-WATER 100 ML IVPB ONE ×2 (08:37→18:07)
[2020-06-30 09:01] LABS: ANISOCYTOSIS 0; MACROCYTOSIS 0; PLATELET ESTIMATE DECREASED
[2020-06-30] MEDS: ALLOPURINOL 300 MG TABLET (FP) PO SCH (09:02)
[2020-06-30] MEDS: POLYETHYLENE GLYCOL 3350 119 GM BTL PO SCH ×2 (09:02→21:28)
[2020-06-30] MEDS: PANTOPRAZOLE SODIUM 40 MG VIAL IVPUSH SCH (09:02)
[2020-06-30] MEDS: ARTIFICIAL TEARS (POLYVINYL ALCOHOL) OPTH DROPS OU SCH (09:03)
[2020-06-30] MEDS ORDERED: PT OWN MED DRAWER 7, Y5N ONE ×2 (09:05→19:41)
[2020-06-30] MEDS: HYDROXYUREA 500 MG CAPSULE PO SCH (09:06)
--- NOTE | 2020-06-30 09:51 | PN ---
Progress Note, Physician - Current Medication List Current Medications: Active Medications Allopurinol (Zyloprim -) 300 mg PO DAILY ERMELINDA Last Admin: 06/30/20 09:02 Dose: 300 mg Documented by: Amino Acids (Prosource No Carb Liquid Pkt) 30 ml PO BID@0800,1730 ERMELINDA Last Admin: 06/30/20 08:14 Dose: 30 ml Documented by: Artificial Tears (Artificial Tears) 1 drop OU DAILY ERMELINDA Last Admin: 06/30/20 09:03 Dose: 1 drop Documented by: Atorvastatin Calcium (Lipitor -) 20 mg PO HS ERMELINDA Last Admin: 06/29/20 21:21 Dose: 20 mg Documented by: Docusate Sodium (Colace Liquid -) 100 mg PO Q8H PRN PRN Reason: CONSTIPATION Last Admin: 06/28/20 21:00 Dose: 100 mg Documented by: Hydrocortisone Sodium Succinate (Solu-Cortef -) 50 mg IVPUSH Q12H ERMELINDA Last Admin: 06/30/20 01:36 Dose: 50 mg Documented by: Hydroxyurea (Hydrea -) 500 mg PO BID ERMELINDA Last Admin: 06/30/20 09:06 Dose: 500 mg Documented by: Propofol (Diprivan -) 1,000,000 mcg in 100 mls @ 2.618 mls/hr IVPB TITR ERMELINDA; Protocol Last Titration: 06/30/20 05:45 Dose: 50 mcg/kg/min, 26.181 mls/hr Documented by: Vasopressin 40 units/ Sodium (Chloride) 100 mls @ 5 mls/hr IVPB ASDIR ERMELINDA; Protocol Last Titration: 06/30/20 09:15 Dose: 4 units/hr, 10 mls/hr Documented by: Norepinephrine Bitartrate 16, (000 mcg/ Sodium Chloride) 500 mls @ 9.375 mls/hr IV TITR ERMELINDA; Protocol Last Admin: 06/30/20 08:14 Dose: 24 mcg/min, 45 mls/hr Documented by: Metronidazole (Flagyl 500mg Premixed Ivpb -) 500 mg in 100 mls @ 100 mls/hr IVPB Q8H-IV ERMELINDA Last Admin: 06/30/20 09:03 Dose: 100 mls/hr Documented by: Fentanyl (Sublimaze Ivpb) 500 mcg in 100 mls @ 0.2 mls/hr IVPB TITR ERMELINDA Last Admin: 06/30/20 07:00 Dose: 100 mcg/hr, 20 mls/hr Documented by: Cefepime HCl 1 gm/ Dextrose 100 mls @ 100 mls/hr IVPB DAILY [facility]; Protocol Last Admin: 06/30/20 09:03 Dose: 100 mls/hr Documented by: Pantoprazole Sodium (Protonix Iv) 40 mg IVPUSH DAILY [facility] Last Admin: 06/30/20 09:02 Dose: 40 mg Documented by: Polyethylene Glycol (Miralax (For Daily Use) -) 17 gm PO BID [facility] Last Admin: 06/30/20 09:02 Dose: Not Given Documented by: Sevelamer Carbonate (Renvela Powder Packet -) 2.4 gm PO TIDCM [facility] Last Admin: 06/30/20 08:14 Dose: 2.4 gm Documented by: - Objective Vital Signs: Vital Signs Temperature 99.2 F 06/30/20 06:00 Pulse Rate 107 H 06/30/20 09:15 Respiratory Rate 20 06/30/20 09:00 Blood Pressure 98/43 L 06/30/20 09:15 O2 Sat by Pulse Oximetry (%) 98 06/30/20 09:00 Cardiovascular: Yes: S1, S2 Respiratory: Yes: Mechanically Ventilated Gastrointestinal: Yes: Abdomen, Obese, Distention Labs: CBC, BMP 06/30/20 05:15 06/30/20 05:15 INR, PTT INR 1.54 (0.83-1.09) H 06/30/20 05:15 Fibrinogen 395.0 mg/dL (238-498) 06/30/20 05:15 Problem List - Problems (1) Symptomatic anemia Code(s): D64.9 - ANEMIA, UNSPECIFIED (2) AML (acute myeloblastic leukemia) Code(s): C92.00 - ACUTE MYELOBLASTIC LEUKEMIA, NOT HAVING ACHIEVED REMISSION (3) CHF (congestive heart failure) Code(s): I50.9 - HEART FAILURE, UNSPECIFIED (4) HTN (hypertension) Code(s): I10 - ESSENTIAL (PRIMARY) HYPERTENSION Assessment/Plan sepsis aml tumor necrosis syndrome acute respiratory failure Orders 06/16/20 10:00 Allopurinol [Zyloprim -] 300 mg PO DAILY Cefepime [Maxipime (Restricted To Id) -] 1 gm Dextrose 5%-Water [Dextrose 5% Water Minibag 100ML] 100 ml IVPB DAILY Hydrocortisone Sod Succinate [Solu-Cortef -] 50 mg IVPUSH Q12H Hydroxyurea [Hydrea -] 1,000 mg PO BID Hydroxyurea [Hydrea -] 500 mg PO BID Pantoprazole Sodium [Protonix IV] 40 mg IVPUSH DAILY Vasopressin [Pitressin -] 40 units Sodium Chloride [Normal Saline -] 98 ml IVPB ASDIR metroNIDAZOLE 500 MG PREMIXED [Flagyl 500Mg Premixed Ivpb -] 500 mg in 100 ml IVPB Q8H-IV follow labs pressers per icu team
[2020-06-30] MEDS ORDERED: CEFEPIME 1 GM in DEXTROSE 5%-WATER 100 ML IVPB SCH (10:00)
[2020-06-30 10:47] LABS: ARTERIAL BLD GAS O2 SATURATION 91.7 mmHg (95-98); ARTERIAL BLOOD GAS BASE EXCESS -13.7 mmol/L (-2-2); ARTERIAL BLOOD GAS PO2 75.9 mmHg (80-100)
[2020-06-30 10:52] LABS: ALLENS TEST POSITIVE
[2020-06-30 10:53] LABS: VENT MODE AC; VENT RATE 24
[2020-06-30 10:57] LABS: ARTERIAL BLOOD GAS pH 7.177 (7.350-7.450)
[2020-06-30] MEDS ORDERED: SODIUM BICARBONATE 8.4% 50 MEQ/50 ML VIAL IV SCH (11:15)
--- NOTE | 2020-06-30 11:43 | PN ---
Teaching Attending Note Name of Resident: Rudy Sanabria ATTENDING PHYSICIAN STATEMENT I saw and evaluated the patient. I reviewed the resident's note and discussed the case with the resident. I agree with the resident's findings and plan as documented. SUBJECTIVE: Pt seen and examined in the ICU. Doing poorly. Pt now oliguric with metabolic acidosis and increasing pressor requirements. Remains intubated, sedated on levophed gtt 24mcgs vasopressin 4 units. Remains febrile, cultures negative. Vented on volume assist control with 50% FiO2. OBJECTIVE: Vital Signs Period Temp Pulse Resp BP Sys/Carrillo Pulse Ox Last 24 Hr 95.4 F-100.5 F 86-107 20-29 90-111/39-54 95-100 Intake & Output 06/27/20 06/28/20 06/29/20 06/30/20 23:59 23:59 23:59 23:59 Intake Total 3738 4024.4 4251.4 1094 Output Total 1100 575 100 Balance 2638 3449.4 4151.4 1094 Weight 85.729 kg 85.23 kg 91.354 kg 97.522 kg Gen: intubated, sedated Heart: RRR Lung: scattered rhonchi Abd: soft, nontender Ext: + edema CBC, BMP 06/30/20 05:15 06/30/20 05:15 Active Medications Allopurinol (Zyloprim -) 300 mg PO DAILY [facility] Last Admin: 06/30/20 09:02 Dose: 300 mg Documented by: Amino Acids (Prosource No Carb Liquid Pkt) 30 ml PO BID@0800,1730 [facility] Last Admin: 06/30/20 08:14 Dose: 30 ml Documented by: Artificial Tears (Artificial Tears) 1 drop OU DAILY [facility] Last Admin: 06/30/20 09:03 Dose: 1 drop Documented by: Atorvastatin Calcium (Lipitor -) 20 mg PO HS [facility] Last Admin: 06/29/20 21:21 Dose: 20 mg Documented by: Docusate Sodium (Colace Liquid -) 100 mg PO Q8H PRN PRN Reason: CONSTIPATION Last Admin: 06/28/20 21:00 Dose: 100 mg Documented by: Hydrocortisone Sodium Succinate (Solu-Cortef -) 50 mg IVPUSH Q12H [facility] Last Admin: 06/30/20 01:36 Dose: 50 mg Documented by: Hydroxyurea (Hydrea -) 500 mg PO BID [facility] Last Admin: 06/30/20 09:06 Dose: 500 mg Documented by: Propofol (Diprivan -) 1,000,000 mcg in 100 mls @ 2.618 mls/hr IVPB TITR [facility]; Protocol Last Titration: 06/30/20 05:45 Dose: 50 mcg/kg/min, 26.181 mls/hr Documented by: Vasopressin 40 units/ Sodium (Chloride) 100 mls @ 5 mls/hr IVPB ASDIR [facility]; Protocol Last Titration: 06/30/20 09:15 Dose: 4 units/hr, 10 mls/hr Documented by: Norepinephrine Bitartrate 16, (000 mcg/ Sodium Chloride) 500 mls @ 9.375 mls/hr IV TITR [facility]; Protocol Last Admin: 06/30/20 08:14 Dose: 24 mcg/min, 45 mls/hr Documented by: Metronidazole (Flagyl 500mg Premixed Ivpb -) 500 mg in 100 mls @ 100 mls/hr IVPB Q8H-IV [facility] Last Admin: 06/30/20 09:03 Dose: 100 mls/hr Documented by: Fentanyl (Sublimaze Ivpb) 500 mcg in 100 mls @ 0.2 mls/hr IVPB TITR [facility] Last Admin: 06/30/20 07:00 Dose: 100 mcg/hr, 20 mls/hr Documented by: Cefepime HCl 1 gm/ Dextrose 100 mls @ 100 mls/hr IVPB DAILY [facility]; Protocol Last Admin: 06/30/20 09:03 Dose: 100 mls/hr Documented by: Pantoprazole Sodium (Protonix Iv) 40 mg IVPUSH DAILY [facility] Last Admin: 06/30/20 09:02 Dose: 40 mg Documented by: Polyethylene Glycol (Miralax (For Daily Use) -) 17 gm PO BID [facility] Last Admin: 06/30/20 09:02 Dose: Not Given Documented by: Sevelamer Carbonate (Renvela Powder Packet -) 2.4 gm PO TIDCM [facility] Last Admin: 06/30/20 08:14 Dose: 2.4 gm Documented by: Sodium Bicarbonate (Sodium Bicarbonate 8.4% -) 150 meq IV DAILY [facility] Sodium Bicarbonate (Sodium Bicarbonate 8.4% -) 50 meq IVPUSH ONCE ONE Stop: 06/30/20 11:05 ASSESSMENT AND PLAN: Acute Hypoxic Respiratory Failure AML Tumor Lysis Syndrome Shock - ?Septic Acute Kidney Injury Hyperkalemia improved Anemia/Thrombocytopenia HTN Hyperlipidemia - antibiotics per ID - IVF - monitor urine output, creatinine - titrate pressors to maintain MAP >65 - stress dose steroids - monitor H/H - transfuse as needed - titrate FiO2 to keep SpO2 >90% - continue volume assist control - sedate for vent synchrony - enteral feeds - DVT/GI prophylaxis - continue ICU monitoring - poor overall prognosis, continue discussions regarding goals of care, advanced directives critical care time spent in reviewing chart, evaluating patient and formulating plan 35 min
[2020-06-30] MEDS ORDERED: SODIUM BICARBONATE 8.4% 50 MEQ/50 ML VIAL ONE (11:49)
[2020-06-30] MEDS ORDERED: SODIUM BICARBONATE 8.4% - 150 MEQ in DEXTROSE 5%-WATER - 950 ML IVPB ONE (12:27)
--- NOTE | 2020-06-30 12:38 | PN ---
Progress Note, Physician History of Present Illness: Pt seen and examine at bedside. He remains in the ICU. He remains lethargic. - Current Medication List Current Medications: Active Medications Allopurinol (Zyloprim -) 300 mg PO DAILY [facility] Last Admin: 06/30/20 09:02 Dose: 300 mg Documented by: Amino Acids (Prosource No Carb Liquid Pkt) 30 ml PO BID@0800,1730 [facility] Last Admin: 06/30/20 08:14 Dose: 30 ml Documented by: Artificial Tears (Artificial Tears) 1 drop OU DAILY [facility] Last Admin: 06/30/20 09:03 Dose: 1 drop Documented by: Atorvastatin Calcium (Lipitor -) 20 mg PO HS [facility] Last Admin: 06/29/20 21:21 Dose: 20 mg Documented by: Docusate Sodium (Colace Liquid -) 100 mg PO Q8H PRN PRN Reason: CONSTIPATION Last Admin: 06/28/20 21:00 Dose: 100 mg Documented by: Hydrocortisone Sodium Succinate (Solu-Cortef -) 50 mg IVPUSH Q12H [facility] Last Admin: 06/30/20 12:26 Dose: 50 mg Documented by: Hydroxyurea (Hydrea -) 500 mg PO BID [facility] Last Admin: 06/30/20 09:06 Dose: 500 mg Documented by: Propofol (Diprivan -) 1,000,000 mcg in 100 mls @ 2.618 mls/hr IVPB TITR [facility]; Protocol Last Titration: 06/30/20 05:45 Dose: 50 mcg/kg/min, 26.181 mls/hr Documented by: Vasopressin 40 units/ Sodium (Chloride) 100 mls @ 5 mls/hr IVPB ASDIR [facility]; Protocol Last Titration: 06/30/20 09:15 Dose: 4 units/hr, 10 mls/hr Documented by: Norepinephrine Bitartrate 16, (000 mcg/ Sodium Chloride) 500 mls @ 9.375 mls/hr IV TITR [facility]; Protocol Last Admin: 06/30/20 08:14 Dose: 24 mcg/min, 45 mls/hr Documented by: Metronidazole (Flagyl 500mg Premixed Ivpb -) 500 mg in 100 mls @ 100 mls/hr IVPB Q8H-IV [facility] Last Admin: 06/30/20 09:03 Dose: 100 mls/hr Documented by: Fentanyl (Sublimaze Ivpb) 500 mcg in 100 mls @ 0.2 mls/hr IVPB TITR [facility] Last Admin: 06/30/20 07:00 Dose: 100 mcg/hr, 20 mls/hr Documented by: Cefepime HCl 1 gm/ Dextrose 100 mls @ 100 mls/hr IVPB DAILY [facility]; Protocol Last Admin: 06/30/20 09:03 Dose: 100 mls/hr Documented by: Sodium Bicarbonate 150 meq/ (Dextrose) 1,100 mls @ 125 mls/hr IVPB ONCE ONE Stop: 06/30/20 21:14 Pantoprazole Sodium (Protonix Iv) 40 mg IVPUSH DAILY [facility] Last Admin: 06/30/20 09:02 Dose: 40 mg Documented by: Polyethylene Glycol (Miralax (For Daily Use) -) 17 gm PO BID [facility] Last Admin: 06/30/20 09:02 Dose: Not Given Documented by: Sevelamer Carbonate (Renvela Powder Packet -) 2.4 gm PO TIDCM [facility] Last Admin: 06/30/20 12:20 Dose: 2.4 gm Documented by: - Objective Vital Signs: Vital Signs Temperature 101.2 F H 06/30/20 12:00 Pulse Rate 113 H 06/30/20 12:00 Respiratory Rate 17 06/30/20 12:00 Blood Pressure 99/44 L 06/30/20 12:00 O2 Sat by Pulse Oximetry (%) 97 06/30/20 12:00 Constitutional: Yes: Calm Eyes: Yes: Conjunctiva Clear HENT: Yes: Atraumatic Neck: Yes: Supple Cardiovascular: Yes: S1, S2 Respiratory: Yes: Mechanically Ventilated Gastrointestinal: Yes: Soft Genitourinary: Yes: García Present Edema: Yes Edema: LUE: 1+, RUE: 1+, LLE: 1+, RLE: 1+ Neurological: Yes: Lethargy Labs: CBC, BMP 06/30/20 05:15 06/30/20 05:15 INR, PTT INR 1.54 (0.83-1.09) H 06/30/20 05:15 Fibrinogen 395.0 mg/dL (238-498) 06/30/20 05:15 - ....Imaging Chest X-ray: Report Reviewed Problem List - Problems (1) AML (acute myeloblastic leukemia) Code(s): C92.00 - ACUTE MYELOBLASTIC LEUKEMIA, NOT HAVING ACHIEVED REMISSION (2) CHF (congestive heart failure) Code(s): I50.9 - HEART FAILURE, UNSPECIFIED (3) CML (chronic myelocytic leukemia) Code(s): C92.10 - CHRONIC MYELOID LEUK, BCR/ABL-POSITIVE, NOT ACHIEVE REMIS Assessment/Plan Current Medications Generic Name Dose Route Start Last Admin Trade Name Freq PRN Reason Stop Dose Admin Allopurinol 300 mg 06/20/20 10:00 06/30/20 09:02 Zyloprim - PO 300 mg DAILY [facility] Administration Amino Acids 30 ml 06/22/20 17:30 06/30/20 08:14 Prosource No Carb Liquid Pkt PO 30 ml BID@0800,1730 [facility] Administration Artificial Tears 1 drop 06/20/20 10:00 06/30/20 09:03 Artificial Tears OU 1 drop DAILY [facility] Administration Atorvastatin Calcium 20 mg 06/19/20 22:00 06/29/20 21:21 Lipitor - PO 20 mg HS [facility] Administration Docusate Sodium 100 mg 06/22/20 08:55 06/28/20 21:00 Colace Liquid - PO 100 mg Q8H PRN Administration CONSTIPATION Hydrocortisone Sodium Succinate 50 mg 06/24/20 13:15 06/30/20 12:26 Solu-Cortef - IVPUSH 50 mg Q12H [facility] Administration Hydroxyurea 500 mg 06/27/20 22:00 06/30/20 09:06 Hydrea - PO 500 mg BID [facility] Administration Propofol 1,000,000 mcg in 100 mls @ 2.618 mls/hr 06/20/20 00:30 06/30/20 05:45 Diprivan - IVPB 50 mcg/kg/min TITR [facility] 26.181 mls/hr Titration Protocol 5 MCG/KG/MIN Vasopressin 40 units/ Sodium 100 mls @ 5 mls/hr 06/20/20 06:30 06/30/20 09:15 Chloride IVPB 4 units/hr ASDIR ERMELINDA 10 mls/hr Titration Protocol 2 UNITS/HR Norepinephrine Bitartrate 16, 500 mls @ 9.375 mls/hr 06/20/20 08:00 06/30/20 08:14 000 mcg/ Sodium Chloride IV 24 mcg/min TITR [facility] 45 mls/hr Administration Protocol 5 MCG/MIN Metronidazole 500 mg in 100 mls @ 100 mls/hr 06/21/20 18:00 06/30/20 09:03 Flagyl 500mg Premixed Ivpb - IVPB 100 mls/hr Q8H-IV [facility] Administration Fentanyl 500 mcg in 100 mls @ 0.2 mls/hr 06/27/20 06:04 06/30/20 07:00 Sublimaze Ivpb IVPB 100 mcg/hr TITR [facility] 20 mls/hr Administration 1 MCG/HR Cefepime HCl 1 gm/ Dextrose 100 mls @ 100 mls/hr 06/30/20 10:00 06/30/20 09:03 IVPB 100 mls/hr DAILY [facility] Administration Protocol Sodium Bicarbonate 150 meq/ 1,100 mls @ 125 mls/hr 06/30/20 12:27 Dextrose IVPB 06/30/20 21:14 ONCE ONE Pantoprazole Sodium 40 mg 06/21/20 10:00 06/30/20 09:02 Protonix Iv IVPUSH 40 mg DAILY [facility] Administration Polyethylene Glycol 17 gm 06/19/20 22:00 06/30/20 09:02 Miralax (For Daily Use) - PO Not Given BID [facility]DA Sevelamer Carbonate 2.4 gm 06/29/20 17:30 06/30/20 12:20 Renvela Powder Packet - PO 2.4 gm TIDCM [facility] Administration Impression 1. CKD 2. CML 3. AML 4. pleural effusions 5. htn 6. tumor lysis 7. charisse 8. hyperkalemia 9. acuter resp failure Plan - vent support - cont pressors - likely atn - will likely need to restart hd in next few days - cont to discuss GOC with family - oncology follow up - will give bicarb - discussed with ICU team - cont supportive care
[2020-06-30] MEDS ORDERED: ACETAMINOPHEN 1000 MG/100 ML VIAL (NON FORMULARY) IVPB ONE (14:43)
[2020-06-30] MEDS: PHENYLEPHRINE NS PREMIX 50,000 MCG/500 ML BAG CVP SCH (15:45)
[2020-06-30] MEDS ORDERED: PHENYLEPHRINE NS PREMIX 25,000 MCG/250 ML BAG CVP SCH (15:45)
[2020-06-30] MEDS ORDERED: VANCOMYCIN 1 GRAM (PRE-DOCKED) 1,000 MG/250 ML BAG IVPB ONE (16:27)
--- NOTE | 2020-06-30 16:38 | PN ---
Progress Note (short form) - Note Progress Note: remains intubated anuric febrile doing poorly pressor demands are up Vital Signs Period Temp Pulse Resp BP Sys/Carrillo Pulse Ox Last 24 Hr 95.4 F-102.3 F 88-117 17-29 91-110/39-54 95-100 cor-rrr lungs decreased bs at bases abd soft,nt ext ecchymoses minimal urine output CBC, BMP 06/30/20 05:15 06/30/20 05:15 Microbiology 06/28/20 13:22 Blood - Peripheral Venous Blood Culture - Preliminary NO GROWTH OBTAINED AFTER 48 HOURS, INCUBATION TO CONTINUE FOR 3 DAYS. 06/28/20 13:05 Blood - Peripheral Venous Blood Culture - Preliminary NO GROWTH OBTAINED AFTER 48 HOURS, INCUBATION TO CONTINUE FOR 3 DAYS. 06/22/20 15:30 Blood - Peripheral Venous Blood Culture - Final NO GROWTH AFTER 5 DAYS INCUBATION 06/22/20 15:30 Blood - Peripheral Venous Blood Culture - Final NO GROWTH AFTER 5 DAYS INCUBATION 06/20/20 15:00 Blood - Peripheral Venous Blood Culture - Final NO GROWTH AFTER 5 DAYS INCUBATION 06/19/20 21:36 Blood - Peripheral Venous Blood Culture - Final NO GROWTH AFTER 5 DAYS INCUBATION 06/20/20 11:50 Sputum - Endotrachea Suction/Ventilator Gram Stain - Final 06/20/20 11:50 Sputum - Endotrachea Suction/Ventilator Sputum Culture - Final NORMAL RESPIRATORY LYNDA 06/20/20 10:50 Urine - Urine - Catheterized Urine Culture - Final NO GROWTH OBTAINED 06/20/20 10:50 Urine For Antigen Detection Legionella Antigen - Final 06/20/20 10:50 Urine For Antigen Detection Streptococcus pneumoniae Antigen (M - Final 06/14/20 01:10 Blood - Peripheral Venous Blood Culture - Final NO GROWTH AFTER 5 DAYS INCUBATION 06/14/20 01:10 Blood - Peripheral Venous Blood Culture - Final NO GROWTH AFTER 5 DAYS INCUBATION 06/14/20 01:10 Urine - Urine Clean Catch Urine Culture - Final Staphylococcus Haemolyticus Group D Strep Or Entero Coccus cxray unchanged a/p doing poorly febrilel with hypotension resp failure AML s/p chemo- renal function worsening tumorlysis syndrome anemia thrombocytopenia pen allergy reculture vanco/meropenem Problem List - Problems (1) AML (acute myeloblastic leukemia) Code(s): C92.00 - ACUTE MYELOBLASTIC LEUKEMIA, NOT HAVING ACHIEVED REMISSION (2) Shortness of breath Code(s): R06.02 - SHORTNESS OF BREATH
[2020-06-30] MEDS ORDERED: RASBURICASE 6 MG in SODIUM CHLORIDE 50 ML IVPB ONE (17:14)
[2020-06-30 17:37] LABS: ARTERIAL BLD GAS O2 SATURATION 93.2 mmHg (95-98); ARTERIAL BLOOD GAS BASE EXCESS -14.7 mmol/L (-2-2); ARTERIAL BLOOD GAS PO2 80.3 mmHg (80-100)
[2020-06-30 17:39] LABS: ALLENS TEST POSITIVE; VENT MODE A/C
[2020-06-30 17:40] LABS: VENT RATE 24
[2020-06-30 17:41] LABS: ARTERIAL BLOOD GAS pH 7.187 (7.350-7.450)
[2020-06-30] MEDS ORDERED: MEROPENEM 1 GM VIAL (RESTRICTED TO ID) IVPB ONE (18:06)
[2020-06-30] MEDS: MEROPENEM 1 GM in DEXTROSE 5%-WATER 100 ML IVPB SCH (18:10)
--- NOTE | 2020-06-30 19:06 | PN ---
Physical Exam: SUBJECTIVE: Patient seen and examined sedated and intubated. OBJECTIVE: GENERAL: The patient is intubated and sedated . HEAD: Normal with no signs of trauma. ENT: Ears normal, nares patent, intubated NECK: Trachea midline, supple. LUNGS: bilateral rhonchi improved from 06/24 HEART: irregular rate and rhythm, S1, S2 without murmur, rub or gallop. ABDOMEN: distended no grimacing, splenomegaly EXTREMITIES: 2+ pulses bilateral lower ext 2+ edema. With RUE also has lynn a SKIN: Warm, dry, normal turgor, no rashes or lesions note Vital Signs Period Temp Pulse Resp BP Sys/Carrillo Pulse Ox Last 24 Hr 96.4 F-102.3 F 90-127 17-30 92-123/39-44 95-127 Laboratory Results - last 24 hr 06/30/20 06/30/20 06/30/20 05:15 05:15 05:15 WBC 57.8 H* RBC 2.88 L Hgb 7.8 L Hct 24.6 L MCV 85.6 MCH 27.0 MCHC 31.6 L RDW 19.1 H Plt Count 42 L MPV 10.2 Absolute Neuts (auto) 31.9 H Neutrophils % 55.3 D Neutrophils % (Manual) 60.0 Band Neutrophils % 0.0 Lymphocytes % 9.2 D Lymphocytes % (Manual) 10.0 Monocytes % 34.4 H D Monocytes % (Manual) 20 H D Eosinophils % 0.1 D Eosinophils % (Manual) 0.0 D Basophils % 1.0 Basophils % (Manual) 0.0 Myelocytes % (Man) 4 H D Promyelocytes % (Man) 2 D Blast Cells % (Manual) 3 H Nucleated RBC % 4 H Metamyelocytes 1 D Hypochromia 0 Platelet Estimate Decreased Polychromasia 0 Poikilocytosis 0 Anisocytosis 0 Microcytosis 0 Macrocytosis 0 PT with INR 18.30 H INR 1.54 H PTT (Actin FS) 30.9 Fibrinogen 395.0 D-Dimer 67980 H Anticoagulation Therapy Puncture Site Patient Temperature ABG pH ABG pCO2 ABG pO2 ABG HCO3 ABG O2 Sat (Measured) ABG O2 Content ABG Base Excess Rhett Test Patient On Oxygen O2 Delivery Device Oxygen Flow Rate Vent Mode Vent Rate Mechanical Rate PEEP Pressure Support Vent Sodium Potassium Chloride Carbon Dioxide Anion Gap BUN Creatinine Est GFR (CKD-EPI)AfAm Est GFR (CKD-EPI)NonAf Random Glucose Uric Acid Calcium Phosphorus Magnesium Total Bilirubin AST ALT Alkaline Phosphatase Total Protein Albumin 06/30/20 06/30/20 06/30/20 05:15 05:30 09:58 WBC RBC Hgb Hct MCV MCH MCHC RDW Plt Count MPV Absolute Neuts (auto) Neutrophils % Neutrophils % (Manual) Band Neutrophils % Lymphocytes % Lymphocytes % (Manual) Monocytes % Monocytes % (Manual) Eosinophils % Eosinophils % (Manual) Basophils % Basophils % (Manual) Myelocytes % (Man) Promyelocytes % (Man) Blast Cells % (Manual) Nucleated RBC % Metamyelocytes Hypochromia Platelet Estimate Polychromasia Poikilocytosis Anisocytosis Microcytosis Macrocytosis PT with INR INR PTT (Actin FS) Fibrinogen D-Dimer Anticoagulation Therapy No Result Required. No Result Required. Puncture Site Right radial Left radial Patient Temperature No Result Required. No Result Required. ABG pH 7.109 L* 7.177 L* ABG pCO2 41.90 37.20 ABG pO2 44.4 L 75.9 L ABG HCO3 13.0 L 13.5 L ABG O2 Sat (Measured) 64.8 L 91.7 L ABG O2 Content No Result Required. No Result Required. ABG Base Excess -15.5 L -13.7 L Rhett Test Positive Positive Patient On Oxygen No Result Required. No Result Required. O2 Delivery Device Vent No Result Required. Oxygen Flow Rate 50% 50 Vent Mode A/c Ac Vent Rate 24 24 Mechanical Rate No Result Required. No Result Required. PEEP 6.0 6.0 Pressure Support Vent 480 480 Sodium 133 L Potassium 4.9 Chloride 104 Carbon Dioxide 15 L Anion Gap 15 BUN 118.7 H* Creatinine 4.2 H Est GFR (CKD-EPI)AfAm 15.41 Est GFR (CKD-EPI)NonAf 13.30 Random Glucose 95 Uric Acid 8.0 H Calcium 7.1 L Phosphorus > 9.0 H* Magnesium 2.2 Total Bilirubin 0.8 AST 47 H ALT 12 L Alkaline Phosphatase 148 H Total Protein 5.5 L Albumin 1.9 L 06/30/20 17:00 WBC RBC Hgb Hct MCV MCH MCHC RDW Plt Count MPV Absolute Neuts (auto) Neutrophils % Neutrophils % (Manual) Band Neutrophils % Lymphocytes % Lymphocytes % (Manual) Monocytes % Monocytes % (Manual) Eosinophils % Eosinophils % (Manual) Basophils % Basophils % (Manual) Myelocytes % (Man) Promyelocytes % (Man) Blast Cells % (Manual) Nucleated RBC % Metamyelocytes Hypochromia Platelet Estimate Polychromasia Poikilocytosis Anisocytosis Microcytosis Macrocytosis PT with INR INR PTT (Actin FS) Fibrinogen D-Dimer Anticoagulation Therapy No Result Required. Puncture Site Right radial Patient Temperature 102.0 ABG pH 7.187 L* ABG pCO2 33.50 L ABG pO2 80.3 ABG HCO3 12.4 L ABG O2 Sat (Measured) 93.2 L ABG O2 Content No Result Required. ABG Base Excess -14.7 L Rhett Test Positive Patient On Oxygen Yes O2 Delivery Device Mech vent Oxygen Flow Rate 50 Vent Mode A/c Vent Rate 24 Mechanical Rate No Result Required. PEEP 6.0 Pressure Support Vent 480 Sodium Potassium Chloride Carbon Dioxide Anion Gap BUN Creatinine Est GFR (CKD-EPI)AfAm Est GFR (CKD-EPI)NonAf Random Glucose Uric Acid Calcium Phosphorus Magnesium Total Bilirubin AST ALT Alkaline Phosphatase Total Protein Albumin Active Medications Generic Name Dose Route Start Last Admin Trade Name Freq PRN Reason Stop Dose Admin Allopurinol 300 mg 06/20/20 10:00 06/30/20 09:02 Zyloprim - PO 300 mg DAILY ERM[facility]INDA Administration Amino Acids 30 ml 06/22/20 17:30 06/30/20 16:39 Prosource No Carb Liquid Pkt PO 30 ml BID@0800,1730 ER[facility]INDA Administration Artificial Tears 1 drop 06/20/20 10:00 06/30/20 09:03 Artificial Tears OU 1 drop DAILY ERM[facility]INDA Administration Atorvastatin Calcium 20 mg 06/19/20 22:00 06/29/20 21:21 Lipitor - PO 20 mg HS ERMELINDA Administration Docusate Sodium 100 mg 06/22/20 08:55 06/28/20 21:00 Colace Liquid - PO 100 mg Q8H PRN Administration CONSTIPATION Hydrocortisone Sodium Succinate 100 mg 06/30/20 16:00 06/30/20 16:28 Solu-Cortef - IVPUSH 100 mg Q8H ERM[facility]INDA Administration Propofol 1,000,000 mcg in 100 mls @ 2.618 mls/hr 06/20/20 00:30 06/30/20 05:45 Diprivan - IVPB 50 mcg/kg/min TITR ERMELINDA 26.181 mls/hr Titration Protocol 5 MCG/KG/MIN Vasopressin 40 units/ Sodium 100 mls @ 5 mls/hr 06/20/20 06:30 06/30/20 09:15 Chloride IVPB 4 units/hr ASDIR ERMELINDA 10 mls/hr Titration Protocol 2 UNITS/HR Norepinephrine Bitartrate 16, 500 mls @ 9.375 mls/hr 06/20/20 08:00 06/30/20 08:14 000 mcg/ Sodium Chloride IV 24 mcg/min TITR ERMELINDA 45 mls/hr Administration Protocol 5 MCG/MIN Fentanyl 500 mcg in 100 mls @ 0.2 mls/hr 06/27/20 06:04 06/30/20 07:00 Sublimaze Ivpb IVPB 100 mcg/hr TITR ERMELINDA 20 mls/hr Administration 1 MCG/HR Sodium Bicarbonate 150 meq/ 1,100 mls @ 125 mls/hr 06/30/20 12:27 06/30/20 13:50 Dextrose IVPB 06/30/20 21:14 125 mls/hr ONCE ONE Administration Phenylephrine HCl 50,000 mcg in 500 mls @ 60 mls/hr 06/30/20 15:45 06/30/20 15:45 Cornell-Synephrine CVP 100 mcg/min TITR ERMELINDA 60 mls/hr Administration Protocol 100 MCG/MIN Meropenem 1 gm/ Dextrose 100 mls @ 200 mls/hr 06/30/20 16:45 06/30/20 18:10 IVPB 200 mls/hr Q24H ERMELINDA Administration Rasburicase 6 mg/ Sodium 50 mls @ 100 mls/hr 06/30/20 17:14 Chloride IVPB 06/30/20 17:15 ONCE ONE Pantoprazole Sodium 40 mg 06/21/20 10:00 06/30/20 09:02 Protonix Iv IVPUSH 40 mg DAILY ERMELINDA Administration Polyethylene Glycol 17 gm 06/19/20 22:00 06/30/20 09:02 Miralax (For Daily Use) - PO Not Given BID ERMELINDA Sevelamer Carbonate 2.4 gm 06/29/20 17:30 06/30/20 16:38 Renvela Powder Packet - PO 2.4 gm TIDCM ERMELINDA Administration ASSESSMENT/PLAN: 70 yo male pmh of htn, hld, 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 Pt intubatedd on 06/19 for hypoxic resp failure Neuro -Pt sedated on Propofol, Fentanyl -CAT scan to be done when stable -Daily sedation vacations to assess mental status Cardio: -Last echo of 06/15/20 normal -Edema likly due to low oncotic pressure from hypoalbuminemia -Foresemide dc -Edema may be fixed with transfusion due to third spacing -Pt on levo 24mcg and vasopressin 2mcg and phenylephrine 30 due to hypotension pt will monitor for MAP<65 -HTN: Metoprolol and lisinopril dc -Hyperlipidemia: Atorvastatin dc Resp: #ACUTE HYPOXIC RESPIRATORY FAILURE - Pt vented on RR 24, TV:480, PEEP 6, FiO2: 50% Pplat 19 - Monitor LDH, uric acid - titrate pressors to maintain MAP >65 - titrate FiO2 to keep SpO2 >90% - continue volume assist control Renal: #Acute Kidney Injury -Nephro consulted and recommendations made -renal function stable -d/c shiley cath on 06/23 - monitor urine output, creatinine, K, phos - titrate pressors to maintain MAP >65 - taper stress dose steroids - pt has increased kidney failure - start sevelemer - renal function worsening - likely atn - pt pH below 7.15 so gave amp of bicarb and bicarb drip. Will continue monitoring ABG and giving bicarb - most likely will need HD in next few days Heme Onc: -Heme Onc consulted and recommendations made on CML to AML. 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 On Neppro ID - Now on Vancomycin and meropenem (06/30) - Tylenol prn 1000 every 8 hrs - Blood cultures recultured on 06/27, no organism growth obtained - Recultured Urine FEN: - Continue volum assist - Hypokalemia improved. Continue to monitor lytes and replete prn - Continue enteral feed Prophylaxis - Heparin 5000 TID - Protonix for PUD #DISPOSITION: -Continue ICU monitoring -Continue discussion regarding goal of care-family meeting afternoon between sister, his fichad Aragon, Palliative , ICU primary team and us to discuss GOC and plan moving forward. Visit type - Emergency Visit Emergency Visit: Yes ED Registration Date: 06/14/20 Care time: The patient presented to the Emergency Department on the above date and was hospitalized for further evaluation of their emergent condition. - New Patient This patient is new to me today: No - Critical Care Critical Care patient: Yes Total Critical Care Time (in minutes): 36 Critical Care Statement: The care of this patient involved high complexity decision making to prevent further life threatening deterioration of the patient's condition and/or to evaluate & treat vital organ system(s) failure or risk of failure. - Medication Review Med list reviewed for High Risk Meds patients 65 and older: Yes ATTENDING PHYSICIAN STATEMENT I saw and evaluated the patient. I reviewed the resident's note and discussed the case with the resident. I agree with the resident's findings and plan as documented. SUBJECTIVE: OBJECTIVE: ASSESSMENT AND PLAN:
[2020-06-30] MEDS ORDERED: NOREPINEPHRINE BITARTRATE 4 MG/4 ML ML IV ONE (19:43)
[2020-06-30] MEDS ORDERED: SODIUM CHLORIDE IVPB ONE (21:00)
[2020-06-30] MEDS ORDERED: RASBURICASE IVPB ONE (21:00)
[2020-06-30] MEDS: ATORVASTATIN CA 20 MG TABLET (FP) PO SCH (21:28)
[2020-06-30 22:20] LABS: ARTERIAL BLD GAS O2 SATURATION 90.4 mmHg (95-98); ARTERIAL BLOOD GAS BASE EXCESS -16.4 mmol/L (-2-2); ARTERIAL BLOOD GAS PO2 75.9 mmHg (80-100)
[2020-06-30 22:21] LABS: ALLENS TEST POSITIVE; PT'S TEMP 104.1; VENT MODE A/C; VENT RATE 24
[2020-06-30 22:25] LABS: ARTERIAL BLOOD GAS pH 7.118 (7.350-7.450)
--- NOTE | 2020-06-30 22:54 | PN.HO ---
Progress Note (short form) - Note Progress Note: PAtient seen and examined Febrile to 104.7 Rising K and phos diagnostic of tumor lysis discussed this with his sister at bed side AFVSS Cor: RSR, No murmurs, No gallops Lungs: decreased at abses Abd: Soft, Normal bowel sounds, distended,+++ splenomegaly. 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 WBC 198,000. 30% blasts s/p decitabine/ hydrea developed tumor lysis/ respiratory failure now in renal failure / respiratory failure Goals of care discussions ongoing
[2020-06-30] MEDS ORDERED: ACETAMINOPHEN 325 MG TABLET (FP) PO PRN (23:08)
[2020-06-30] MEDS ORDERED: ACETAMINOPHEN 1000 MG/100 ML VIAL (NON FORMULARY) IVPB PRN (23:27)
[2020-07-01] MEDS: SODIUM BICARBONATE 8.4% - 150 MEQ in DEXTROSE 5%-WATER - 1,000 ML IVPB SCH ×3 (03:31→21:23)
[2020-07-01] MEDS: PROPOFOL 1,000,000 MCG/100 ML VIAL IVPB SCH (03:31)
[2020-07-01 04:00] LABS: ARTERIAL BLD GAS O2 SATURATION 90.4 mmHg (95-98); ARTERIAL BLOOD GAS BASE EXCESS -13.5 mmol/L (-2-2)
[2020-07-01 04:01] LABS: ALLENS TEST POSITIVE
[2020-07-01 04:02] LABS: PT'S TEMP 99.2; VENT MODE A/C
[2020-07-01 04:03] LABS: VENT RATE 24
[2020-07-01 04:09] LABS: ARTERIAL BLOOD GAS pH 7.164 (7.350-7.450)
[2020-07-01] MEDS ORDERED: FENTANYL NS IVPB 500 MCG/100 ML BAG IVPB ONE (04:49)
[2020-07-01] MEDS ORDERED: SODIUM BICARBONATE 8.4% 50 MEQ/50 ML DISP.SYRIN IVPUSH ONE (05:17)
[2020-07-01] MEDS ORDERED: SODIUM BICARBONATE 8.4% - 50 ML ONE (06:01)
[2020-07-01 07:25] LABS: EOS % 0.2 % (0-4.5); HEMATOCRIT 21.3 % (35.4-49); LYMPH % 15.3 % (8-40); MCH 27.7 pg (25.7-33.7); MCHC 32.9 g/dl (32.0-35.9); MEAN CELL VOLUME 84.3 fl (80-96); MEAN PLT VOLUME 10.3 fl (7.5-11.1); MONO % 13.4 % (3.8-10.2); NEUT % 70.1 % (42.8-82.8); PLATELET COUNT 25 K/MM3 (134-434); RBC 2.53 M/mm3 (4.00-5.60); RDW 18.8 % (11.9-15.9); WHITE BLOOD COUNT 26.8 K/mm3 (4.0-10.0)
[2020-07-01 07:39] LABS: INR 2.34 (0.83-1.09); PROTHROMBIN TIME (PATIENT) 27.8 SEC (9.7-13.0)
[2020-07-01 07:40] LABS: ACTIVATED PTT 38.4 SECONDS (25.2-36.5)
[2020-07-01 08:17] LABS: ALBUMIN 1.6 g/dl (3.4-5.0); TOT PROT 4.6 g/dl (6.4-8.2)
[2020-07-01 08:30] LABS: CREATININE 4.5 mg/dL (0.55-1.3); URIC ACID 6.7 mg/dL (2.6-7.2)
[2020-07-01 08:54] LABS: BLOOD UREA NITROGEN 129.9 mg/dL (7-18); CALCIUM 5.8 mg/dL (8.5-10.1)
[2020-07-01] MEDS ORDERED: PT OWN MED DRAWER 7, Y5N ONE (08:58)
[2020-07-01] MEDS: AMINO ACIDS/PROTEIN HYDROLYS 30 ML LIQUID.PKT PO SCH ×2 (09:18→16:57)
[2020-07-01] MEDS: PANTOPRAZOLE SODIUM 40 MG VIAL IVPUSH SCH (09:19)
[2020-07-01] MEDS: ALLOPURINOL 300 MG TABLET (FP) PO SCH (09:19)
[2020-07-01] MEDS: POLYETHYLENE GLYCOL 3350 119 GM BTL PO SCH ×2 (09:19→21:24)
[2020-07-01] MEDS: HYDROCORTISONE SOD SUCCINATE 100 MG/2 ML VIAL IVPUSH SCH ×2 (09:19→16:56)
[2020-07-01] MEDS: ARTIFICIAL TEARS (POLYVINYL ALCOHOL) OPTH DROPS OU SCH (09:19)
[2020-07-01] MEDS: SEVELAMER CARBONATE 2.4 GM POWDER PACKET PO SCH ×3 (09:19→16:57)
[2020-07-01] MEDS: PHENYLEPHRINE NS PREMIX 50,000 MCG/500 ML BAG CVP SCH ×2 (09:20→21:22)
[2020-07-01 11:08] LABS: ARTERIAL BLD GAS O2 SATURATION 90.6 mmHg (95-98); ARTERIAL BLOOD GAS BASE EXCESS -11.8 mmol/L (-2-2); ARTERIAL BLOOD GAS PO2 72.4 mmHg (80-100)
[2020-07-01 11:14] LABS: ALLENS TEST POSITIVE; VENT MODE A/C; VENT RATE 25
[2020-07-01 11:16] LABS: ARTERIAL BLOOD GAS pH 7.183 (7.350-7.450)
[2020-07-01 11:22] LABS: ANISOCYTOSIS 0; MACROCYTOSIS 0; PLATELET ESTIMATE DECREASED
--- NOTE | 2020-07-01 11:30 | PN ---
Progress Note, Physician Chief Complaint: Acute respiratory failure Tumor lysis syndrome CML History of Present Illness: 70 yo male pmh of htn, hld, 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 Pt intubatedd on 06/19 for hypoxic resp failure Remains intubated and sedated Remains on Pressors Had fever of 104 overnight - Current Medication List Current Medications: Active Medications Acetaminophen (Ofirmev Injection -) 1,000 mg IVPB Q6H PRN PRN Reason: FEVER Stop: 07/01/20 23:27 Last Admin: 06/30/20 23:52 Dose: 1,000 mg Documented by: Allopurinol (Zyloprim -) 300 mg PO DAILY ERMELINDA Last Admin: 07/01/20 09:19 Dose: 300 mg Documented by: Amino Acids (Prosource No Carb Liquid Pkt) 30 ml PO BID@0800,1730 ER[facility]DA Last Admin: 07/01/20 09:18 Dose: 30 ml Documented by: Artificial Tears (Artificial Tears) 1 drop OU DAILY [facility]DA Last Admin: 07/01/20 09:19 Dose: 1 drop Documented by: Atorvastatin Calcium (Lipitor -) 20 mg PO HS [facility]DA Last Admin: 06/30/20 21:28 Dose: 20 mg Documented by: Docusate Sodium (Colace Liquid -) 100 mg PO Q8H PRN PRN Reason: CONSTIPATION Last Admin: 06/28/20 21:00 Dose: 100 mg Documented by: Hydrocortisone Sodium Succinate (Solu-Cortef -) 100 mg IVPUSH Q8H ER[facility]DA Last Admin: 07/01/20 09:19 Dose: 100 mg Documented by: Propofol (Diprivan -) 1,000,000 mcg in 100 mls @ 2.618 mls/hr IVPB TITR ERMEL[facility]DA; Protocol Last Titration: 07/01/20 04:56 Dose: 20 mcg/kg/min, 10.473 mls/hr Documented by: Vasopressin 40 units/ Sodium (Chloride) 100 mls @ 5 mls/hr IVPB ASDIR ERMELINDA; Protocol Last Titration: 06/30/20 21:29 Dose: 4 units/hr, 10 mls/hr Documented by: Norepinephrine Bitartrate 16, (000 mcg/ Sodium Chloride) 500 mls @ 9.375 mls/hr IV TITR ERMELINDA; Protocol Last Titration: 06/30/20 21:30 Dose: 24 mcg/min, 45 mls/hr Documented by: Fentanyl (Sublimaze Ivpb) 500 mcg in 100 mls @ 0.2 mls/hr IVPB TITR [facility] Last Titration: 06/30/20 21:29 Dose: 100 mcg/hr, 20 mls/hr Documented by: Phenylephrine HCl (Cornell-Synephrine) 50,000 mcg in 500 mls @ 60 mls/hr CVP TITR [facility]; Protocol Last Admin: 07/01/20 09:20 Dose: 100 mcg/min, 60 mls/hr Documented by: Meropenem 1 gm/ Dextrose 100 mls @ 200 mls/hr IVPB Q24H [facility] Last Admin: 06/30/20 18:10 Dose: 200 mls/hr Documented by: Sodium Bicarbonate 150 meq/ (Dextrose) 1,150 mls @ 125 mls/hr IVPB Q9H [facility] Last Admin: 07/01/20 03:31 Dose: 125 mls/hr Documented by: Pantoprazole Sodium (Protonix Iv) 40 mg IVPUSH DAILY [facility] Last Admin: 07/01/20 09:19 Dose: 40 mg Documented by: Polyethylene Glycol (Miralax (For Daily Use) -) 17 gm PO BID [facility] Last Admin: 07/01/20 09:19 Dose: Not Given Documented by: Sevelamer Carbonate (Renvela Powder Packet -) 2.4 gm PO TIDCM [facility] Last Admin: 07/01/20 09:19 Dose: 2.4 gm Documented by: - Objective Vital Signs: Vital Signs Temperature 97.7 F 07/01/20 10:00 Pulse Rate 96 H 07/01/20 10:00 Respiratory Rate 25 H 07/01/20 10:00 Blood Pressure 110/52 L 07/01/20 10:00 O2 Sat by Pulse Oximetry (%) 95 07/01/20 10:00 Constitutional: Yes: Well Nourished, No Distress, Calm Cardiovascular: Yes: Regular Rate and Rhythm Respiratory: Yes: Mechanically Ventilated, Rhonchi (diffuse) Genitourinary: Yes: García Present Musculoskeletal: Yes: WNL Extremities: Yes: WNL Edema: Yes (generalized) Peripheral Pulses WNL: Yes Neurological: Yes: Other (sedated) Labs: CBC, BMP 07/01/20 06:30 07/01/20 06:30 INR, PTT INR 2.34 (0.83-1.09) H 07/01/20 06:30 Fibrinogen 395.0 mg/dL (238-498) 06/30/20 05:15 Problem List - Problems (1) Acute respiratory failure Assessment/Plan: -Mech vent -Pulmonary on board -IV solucortef -Chest CTA 06/13: no evidence of PE, bilateral pleural efuusions, R>L, extensive LAD involving the mediastinal, bilateral hilar, bilateral axillary and upper abdominal LN chains. Splenomegaly. -Enteral feeds Problems reviewed: Yes Code(s): J96.00 - ACUTE RESPIRATORY FAILURE, UNSP W HYPOXIA OR HYPERCAPNIA (2) Tumor lysis syndrome Assessment/Plan: -Hematology on board -On solucortef -G6PD level not deficient -Allopurinol dose to 300mg daily -Completed 5 doses of Decitabine Problems reviewed: Yes Code(s): E88.3 - TUMOR LYSIS SYNDROME (3) CHF (congestive heart failure) Assessment/Plan: -HD as per nephrology -Cardiology consult Problems reviewed: Yes Code(s): I50.9 - HEART FAILURE, UNSPECIFIED (4) AML (acute myeloblastic leukemia) Assessment/Plan: -Hematology consult -Monitor labs Problems reviewed: Yes Code(s): C92.00 - ACUTE MYELOBLASTIC LEUKEMIA, NOT HAVING ACHIEVED REMISSION (5) Acute renal failure Assessment/Plan: -Nephrology on board -HD as recommended by nephrology -Follow labs -On Renvela Problems reviewed: Yes Code(s): N17.9 - ACUTE KIDNEY FAILURE, UNSPECIFIED (6) Fever Assessment/Plan: -Cultures: Microbiology 06/30/20 08:20 Urine - Urine García Urine Culture - Final NO GROWTH OBTAINED 06/28/20 13:22 Blood - Peripheral Venous Blood Culture - Preliminary NO GROWTH OBTAINED AFTER 48 HOURS, INCUBATION TO CONTINUE FOR 3 DAYS. 06/28/20 13:05 Blood - Peripheral Venous Blood Culture - Preliminary NO GROWTH OBTAINED AFTER 48 HOURS, INCUBATION TO CONTINUE FOR 3 DAYS. 06/22/20 15:30 Blood - Peripheral Venous Blood Culture - Final NO GROWTH AFTER 5 DAYS INCUBATION 06/22/20 15:30 Blood - Peripheral Venous Blood Culture - Final NO GROWTH AFTER 5 DAYS INCUBATION 06/20/20 15:00 Blood - Peripheral Venous Blood Culture - Final NO GROWTH AFTER 5 DAYS INCUBATION 06/19/20 21:36 Blood - Peripheral Venous Blood Culture - Final NO GROWTH AFTER 5 DAYS INCUBATION 06/20/20 11:50 Sputum - Endotrachea Suction/Ventilator Gram Stain - Final 06/20/20 11:50 Sputum - Endotrachea Suction/Ventilator Sputum Culture - Final NORMAL RESPIRATORY LYNDA 06/20/20 10:50 Urine - Urine - Catheterized Urine Culture - Final NO GROWTH OBTAINED 06/20/20 10:50 Urine For Antigen Detection Legionella Antigen - Final 06/20/20 10:50 Urine For Antigen Detection Streptococcus pneumoniae Antigen (M - Final 06/14/20 01:10 Blood - Peripheral Venous Blood Culture - Final NO GROWTH AFTER 5 DAYS INCUBATION 06/14/20 01:10 Blood - Peripheral Venous Blood Culture - Final NO GROWTH AFTER 5 DAYS INCUBATION 06/14/20 01:10 Urine - Urine Clean Catch Urine Culture - Final Staphylococcus Haemolyticus Group D Strep Or Entero Coccus -ID on board -IV meropenem -Cooling blanket for fever>102.0F Problems reviewed: Yes Code(s): R50.9 - FEVER, UNSPECIFIED
[2020-07-01] MEDS: VASOPRESSIN 40 UNITS in SODIUM CHLORIDE 98 ML IVPB SCH (11:43)
--- NOTE | 2020-07-01 12:28 | PN ---
Teaching Attending Note Name of Resident: Rudy Sanabria ATTENDING PHYSICIAN STATEMENT I saw and evaluated the patient. I reviewed the resident's note and discussed the case with the resident. I agree with the resident's findings and plan as documented. SUBJECTIVE: Pt seen and examined in the ICU. Remains intubated, sedated. Now on levophed, vasopressin and phenyephrine gtts. Remains oliguric. OBJECTIVE: Vital Signs Period Temp Pulse Resp BP Sys/Acrrillo Pulse Ox Last 24 Hr 97.7 F-104 F 94-133 19-30 96-125/39-54 94-127 Intake & Output 06/28/20 06/29/20 06/30/20 07/01/20 23:59 23:59 23:59 23:59 Intake Total 4024.4 4251.4 3356.4 3338 Output Total 575 100 10 25 Balance 3449.4 4151.4 3346.4 3313 Weight 85.23 kg 91.354 kg 97.522 kg 98.7 kg Gen: intubated, sedated Heart: RRR Lung: scattered rhonchi Abd: soft, nontender Ext: + edema CBC, BMP 07/01/20 06:30 07/01/20 06:30 Active Medications Acetaminophen (Ofirmev Injection -) 1,000 mg IVPB Q6H PRN PRN Reason: FEVER Stop: 07/01/20 23:27 Last Admin: 06/30/20 23:52 Dose: 1,000 mg Documented by: Allopurinol (Zyloprim -) 300 mg PO DAILY [facility] Last Admin: 07/01/20 09:19 Dose: 300 mg Documented by: Amino Acids (Prosource No Carb Liquid Pkt) 30 ml PO BID@0800,1730 [facility] Last Admin: 07/01/20 09:18 Dose: 30 ml Documented by: Artificial Tears (Artificial Tears) 1 drop OU DAILY [facility] Last Admin: 07/01/20 09:19 Dose: 1 drop Documented by: Atorvastatin Calcium (Lipitor -) 20 mg PO HS [facility] Last Admin: 06/30/20 21:28 Dose: 20 mg Documented by: Docusate Sodium (Colace Liquid -) 100 mg PO Q8H PRN PRN Reason: CONSTIPATION Last Admin: 06/28/20 21:00 Dose: 100 mg Documented by: Hydrocortisone Sodium Succinate (Solu-Cortef -) 100 mg IVPUSH Q8H ERMELINDA Last Admin: 07/01/20 09:19 Dose: 100 mg Documented by: Propofol (Diprivan -) 1,000,000 mcg in 100 mls @ 2.618 mls/hr IVPB TITR [facility]; Protocol Last Titration: 07/01/20 04:56 Dose: 20 mcg/kg/min, 10.473 mls/hr Documented by: Vasopressin 40 units/ Sodium (Chloride) 100 mls @ 5 mls/hr IVPB ASDIR ERMELINDA; Protocol Last Admin: 07/01/20 11:43 Dose: 4 units/hr, 10 mls/hr Documented by: Norepinephrine Bitartrate 16, (000 mcg/ Sodium Chloride) 500 mls @ 9.375 mls/hr IV TITR [facility]; Protocol Last Titration: 06/30/20 21:30 Dose: 24 mcg/min, 45 mls/hr Documented by: Fentanyl (Sublimaze Ivpb) 500 mcg in 100 mls @ 0.2 mls/hr IVPB TITR ERMELINDA Last Titration: 06/30/20 21:29 Dose: 100 mcg/hr, 20 mls/hr Documented by: Phenylephrine HCl (Cornell-Synephrine) 50,000 mcg in 500 mls @ 60 mls/hr CVP TITR [facility]; Protocol Last Admin: 07/01/20 09:20 Dose: 100 mcg/min, 60 mls/hr Documented by: Meropenem 1 gm/ Dextrose 100 mls @ 200 mls/hr IVPB Q24H ERMELINDA Last Admin: 06/30/20 18:10 Dose: 200 mls/hr Documented by: Sodium Bicarbonate 150 meq/ (Dextrose) 1,150 mls @ 125 mls/hr IVPB Q9H ERMELINDA Last Admin: 07/01/20 11:44 Dose: 125 mls/hr Documented by: Pantoprazole Sodium (Protonix Iv) 40 mg IVPUSH DAILY [facility] Last Admin: 07/01/20 09:19 Dose: 40 mg Documented by: Polyethylene Glycol (Miralax (For Daily Use) -) 17 gm PO BID [facility] Last Admin: 07/01/20 09:19 Dose: Not Given Documented by: Sevelamer Carbonate (Renvela Powder Packet -) 2.4 gm PO TIDCM [facility] Last Admin: 07/01/20 11:44 Dose: 2.4 gm Documented by: ASSESSMENT AND PLAN: Acute Hypoxic Respiratory Failure AML Tumor Lysis Syndrome Shock - ?Septic Acute Kidney Injury Hyperkalemia improved Anemia/Thrombocytopenia HTN Hyperlipidemia - antibiotics per ID - bicarb gtt - monitor urine output, creatinine - titrate pressors to maintain MAP >65 - stress dose steroids - monitor H/H - transfuse as needed - titrate FiO2 to keep SpO2 >90% - continue volume assist control - sedate for vent synchrony - enteral feeds - DVT/GI prophylaxis - continue ICU monitoring - poor overall prognosis, continue discussions regarding goals of care, advanced directives - recommend comfort measures given poor prognosis for meaningful recovery critical care time spent in reviewing chart, evaluating patient and formulating plan 35 min
--- NOTE | 2020-07-01 13:25 | PN ---
Progress Note (short form) - Note Progress Note: remains intubated anuric afebrile - last fever last night doing poorly 3 pressors, sedation Vital Signs Period Temp Pulse Resp BP Sys/Carrillo Pulse Ox Last 24 Hr 97.7 F-104 F 94-133 19-30 96-125/39-54 93-127 cor-rrr lungs decreased bs at bases abd soft,nt ext ecchymoses minimal urine output CBC, BMP 07/01/20 06:30 07/01/20 06:30 Microbiology 06/28/20 13:22 Blood - Peripheral Venous Blood Culture - Preliminary NO GROWTH OBTAINED AFTER 72 HOURS, INCUBATION TO CONTINUE FOR 2 DAYS. 06/28/20 13:05 Blood - Peripheral Venous Blood Culture - Preliminary NO GROWTH OBTAINED AFTER 72 HOURS, INCUBATION TO CONTINUE FOR 2 DAYS. 06/30/20 08:20 Urine - Urine García Urine Culture - Final NO GROWTH OBTAINED 06/22/20 15:30 Blood - Peripheral Venous Blood Culture - Final NO GROWTH AFTER 5 DAYS INCUBATION 06/22/20 15:30 Blood - Peripheral Venous Blood Culture - Final NO GROWTH AFTER 5 DAYS INCUBATION 06/20/20 15:00 Blood - Peripheral Venous Blood Culture - Final NO GROWTH AFTER 5 DAYS INCUBATION 06/19/20 21:36 Blood - Peripheral Venous Blood Culture - Final NO GROWTH AFTER 5 DAYS INCUBATION 06/20/20 11:50 Sputum - Endotrachea Suction/Ventilator Gram Stain - Final 06/20/20 11:50 Sputum - Endotrachea Suction/Ventilator Sputum Culture - Final NORMAL RESPIRATORY LYNDA 06/20/20 10:50 Urine - Urine - Catheterized Urine Culture - Final NO GROWTH OBTAINED 06/20/20 10:50 Urine For Antigen Detection Legionella Antigen - Final 06/20/20 10:50 Urine For Antigen Detection Streptococcus pneumoniae Antigen (M - Final 06/14/20 01:10 Blood - Peripheral Venous Blood Culture - Final NO GROWTH AFTER 5 DAYS INCUBATION 06/14/20 01:10 Blood - Peripheral Venous Blood Culture - Final NO GROWTH AFTER 5 DAYS INCUBATION 06/14/20 01:10 Urine - Urine Clean Catch Urine Culture - Final Staphylococcus Haemolyticus Group D Strep Or Entero Coccus cxray unchanged a/p doing poorly febrile with hypotension resp failure-oxygen demands unchanged AML s/p chemo- renal function worsening tumor lysis syndrome anemia thrombocytopenia pen allergy reculture vanco/meropenem family conference today Problem List - Problems (1) AML (acute myeloblastic leukemia) Code(s): C92.00 - ACUTE MYELOBLASTIC LEUKEMIA, NOT HAVING ACHIEVED REMISSION (2) Shortness of breath Code(s): R06.02 - SHORTNESS OF BREATH
[2020-07-01] MEDS: FENTANYL NS IVPB 500 MCG/100 ML BAG IVPB SCH (14:00)
[2020-07-01] MEDS ORDERED: DEXTROSE 5%-WATER 100 ML IVPB ONE (16:42)
[2020-07-01] MEDS ORDERED: MEROPENEM 1 GM VIAL (RESTRICTED TO ID) IVPB ONE (16:42)
[2020-07-01] MEDS: MEROPENEM 1 GM in DEXTROSE 5%-WATER 100 ML IVPB SCH (16:56)
[2020-07-01] MEDS: NOREPINEPHRINE BITARTRATE 16,000 MCG in SODIUM CHLORIDE 484 ML IV SCH (17:03)
[2020-07-01 17:10] LABS: EPI CELLS >36 /uL (0-25.1); HYALINE CASTS 40 /uL (0-3.1); URINE APPEARANCE TURBID; URINE BILIRUBIN NEGATIVE (NEGATIVE); URINE COLOR DK YELLOW; URINE GLUCOSE (UA) 1+ (NEGATIVE); URINE KETONE NEGATIVE (NEGATIVE); URINE LEUK ESTERASE 1+ (NEGATIVE); URINE NITRITE POSITIVE (NEGATIVE); URINE PROTEIN 4+ (NEGATIVE); URINE UROBILINOGEN 0.2 mg/dL (0.2-1.0); URINE WBC 1290 /uL (0-25.8)
--- NOTE | 2020-07-01 17:26 | PN.HO ---
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 Patient remains intubated, sedated and anuric requiring multiple pressors with extremely poor prognosis. Family meeting took place today between undersigned, palliative team, ICU resident and Margo (patient's HCP and fiance) Sister Nathaly and Nephew to discuss current management and GOC. We went through Mr Valle's complicated hospital course and discussed the poor overall prognosis for AML in the >65 population. Family is up to date on how guarded his prognosis is and would like to discuss between themselves code status and further treatment. They are aware that there eventually there will be a point where he will no longer be responding to life support. They are aware that they can continue his current course of action or can focus on comfort measures only. Oncology team will continue to provide support.
[2020-07-01 17:29] LABS: URINE BACTERIA 65.5 /uL (0-1359); URINE RBC 77.6 /uL (0-23.9)
[2020-07-01 17:30] LABS: YEAST NO SEEN (NEGATIVE)
--- NOTE | 2020-07-01 17:31 | PN ---
Progress Note, Physician History of Present Illness: Pt seen and examined at bedside. He remains in the ICU. Family are meeting today to discuss GOC. - Current Medication List Current Medications: Active Medications Acetaminophen (Ofirmev Injection -) 1,000 mg IVPB Q6H PRN PRN Reason: FEVER Stop: 07/01/20 23:27 Last Admin: 06/30/20 23:52 Dose: 1,000 mg Documented by: Allopurinol (Zyloprim -) 300 mg PO DAILY [facility]INDA Last Admin: 07/01/20 09:19 Dose: 300 mg Documented by: Amino Acids (Prosource No Carb Liquid Pkt) 30 ml PO BID@0800,1730 ER[facility]INDA Last Admin: 07/01/20 16:57 Dose: 30 ml Documented by: Artificial Tears (Artificial Tears) 1 drop OU DAILY ER[facility]ELINDA Last Admin: 07/01/20 09:19 Dose: 1 drop Documented by: Atorvastatin Calcium (Lipitor -) 20 mg PO HS ER[facility]INDA Last Admin: 06/30/20 21:28 Dose: 20 mg Documented by: Docusate Sodium (Colace Liquid -) 100 mg PO Q8H PRN PRN Reason: CONSTIPATION Last Admin: 06/28/20 21:00 Dose: 100 mg Documented by: Hydrocortisone Sodium Succinate (Solu-Cortef -) 100 mg IVPUSH Q8H ER[facility]DA Last Admin: 07/01/20 16:56 Dose: 100 mg Documented by: Propofol (Diprivan -) 1,000,000 mcg in 100 mls @ 2.618 mls/hr IVPB TITR [facility]; Protocol Last Titration: 07/01/20 04:56 Dose: 20 mcg/kg/min, 10.473 mls/hr Documented by: Vasopressin 40 units/ Sodium (Chloride) 100 mls @ 5 mls/hr IVPB ASDIR ERMELINDA; Protocol Last Admin: 07/01/20 11:43 Dose: 4 units/hr, 10 mls/hr Documented by: Norepinephrine Bitartrate 16, (000 mcg/ Sodium Chloride) 500 mls @ 9.375 mls/hr IV TITR [facility]; Protocol Last Admin: 07/01/20 17:03 Dose: 24 mcg/min, 45 mls/hr Documented by: Fentanyl (Sublimaze Ivpb) 500 mcg in 100 mls @ 0.2 mls/hr IVPB TITR [facility] Last Admin: 07/01/20 14:00 Dose: 50 mcg/hr, 10 mls/hr Documented by: Phenylephrine HCl (Cornell-Synephrine) 50,000 mcg in 500 mls @ 60 mls/hr CVP TITR [facility]; Protocol Last Admin: 07/01/20 09:20 Dose: 100 mcg/min, 60 mls/hr Documented by: Meropenem 1 gm/ Dextrose 100 mls @ 200 mls/hr IVPB Q24H [facility] Last Admin: 07/01/20 16:56 Dose: 200 mls/hr Documented by: Sodium Bicarbonate 150 meq/ (Dextrose) 1,150 mls @ 125 mls/hr IVPB Q9H [facility] Last Admin: 07/01/20 11:44 Dose: 125 mls/hr Documented by: Pantoprazole Sodium (Protonix Iv) 40 mg IVPUSH DAILY [facility] Last Admin: 07/01/20 09:19 Dose: 40 mg Documented by: Polyethylene Glycol (Miralax (For Daily Use) -) 17 gm PO BID [facility] Last Admin: 07/01/20 09:19 Dose: Not Given Documented by: Sevelamer Carbonate (Renvela Powder Packet -) 2.4 gm PO TIDCM [facility] Last Admin: 07/01/20 16:57 Dose: 2.4 gm Documented by: - Objective Vital Signs: Vital Signs Temperature 97.5 F L 07/01/20 14:00 Pulse Rate 97 H 07/01/20 17:03 Respiratory Rate 24 H 07/01/20 16:05 Blood Pressure 104/44 L 07/01/20 17:03 O2 Sat by Pulse Oximetry (%) 96 07/01/20 16:05 Constitutional: Yes: Calm Eyes: Yes: Conjunctiva Clear HENT: Yes: Atraumatic Cardiovascular: Yes: S1, S2 Respiratory: Yes: Mechanically Ventilated Gastrointestinal: Yes: Distention Genitourinary: Yes: García Present Musculoskeletal: Yes: Muscle Weakness Edema: Yes Edema: LUE: 2+, RUE: 2+, LLE: 2+, RLE: 2+ Integumentary: Yes: Skin Tear Neurological: Yes: Lethargy Labs: CBC, BMP 07/01/20 06:30 07/01/20 06:30 INR, PTT INR 2.34 (0.83-1.09) H 09/03/20 06:30 Fibrinogen 395.0 mg/dL (238-498) 06/30/20 05:15 Problem List - Problems (1) AML (acute myeloblastic leukemia) Code(s): C92.00 - ACUTE MYELOBLASTIC LEUKEMIA, NOT HAVING ACHIEVED REMISSION (2) CHF (congestive heart failure) Code(s): I50.9 - HEART FAILURE, UNSPECIFIED (3) CML (chronic myelocytic leukemia) Code(s): C92.10 - CHRONIC MYELOID LEUK, BCR/ABL-POSITIVE, NOT ACHIEVE REMIS Assessment/Plan Current Medications Generic Name Dose Route Start Last Admin Trade Name Freq PRN Reason Stop Dose Admin Acetaminophen 1,000 mg 06/30/20 23:27 06/30/20 23:52 Ofirmev Injection - IVPB 07/01/20 23:27 1,000 mg Q6H PRN Administration FEVER Allopurinol 300 mg 06/20/20 10:00 07/01/20 09:19 Zyloprim - PO 300 mg DAILY ERMELINDA Administration Amino Acids 30 ml 06/22/20 17:30 07/01/20 16:57 Prosource No Carb Liquid Pkt PO 30 ml BID@0800,1730 ERMELINDA Administration Artificial Tears 1 drop 06/20/20 10:00 07/01/20 09:19 Artificial Tears OU 1 drop DAILY ERMELINDA Administration Atorvastatin Calcium 20 mg 06/19/20 22:00 06/30/20 21:28 Lipitor - PO 20 mg HS ERMELINDA Administration Docusate Sodium 100 mg 06/22/20 08:55 06/28/20 21:00 Colace Liquid - PO 100 mg Q8H PRN Administration CONSTIPATION Hydrocortisone Sodium Succinate 100 mg 06/30/20 16:00 07/01/20 16:56 Solu-Cortef - IVPUSH 100 mg Q8H ERMELINDA Administration Propofol 1,000,000 mcg in 100 mls @ 2.618 mls/hr 06/20/20 00:30 07/01/20 04:56 Diprivan - IVPB 20 mcg/kg/min TITR ERMELINDA 10.473 mls/hr Titration Protocol 5 MCG/KG/MIN Vasopressin 40 units/ Sodium 100 mls @ 5 mls/hr 06/20/20 06:30 07/01/20 11:43 Chloride IVPB 4 units/hr ASDIR ERMELINDA 10 mls/hr Administration Protocol 2 UNITS/HR Norepinephrine Bitartrate 16, 500 mls @ 9.375 mls/hr 06/20/20 08:00 07/01/20 17:03 000 mcg/ Sodium Chloride IV 24 mcg/min TITR ERMELINDA 45 mls/hr Administration Protocol 5 MCG/MIN Fentanyl 500 mcg in 100 mls @ 0.2 mls/hr 06/27/20 06:04 07/01/20 14:00 Sublimaze Ivpb IVPB 50 mcg/hr TITR ERM[facility]INDA 10 mls/hr Administration 1 MCG/HR Phenylephrine HCl 50,000 mcg in 500 mls @ 60 mls/hr 06/30/20 15:45 07/01/20 09:20 Cornell-Synephrine CVP 100 mcg/min TITR ERMELINDA 60 mls/hr Administration Protocol 100 MCG/MIN Meropenem 1 gm/ Dextrose 100 mls @ 200 mls/hr 06/30/20 16:45 07/01/20 16:56 IVPB 200 mls/hr Q24H ERM[facility]INDA Administration Sodium Bicarbonate 150 meq/ 1,150 mls @ 125 mls/hr 07/01/20 02:00 07/01/20 11:44 Dextrose IVPB 125 mls/hr Q9H ER[facility] Administration Pantoprazole Sodium 40 mg 06/21/20 10:00 07/01/20 09:19 Protonix Iv IVPUSH 40 mg DAILY [facility] Administration Polyethylene Glycol 17 gm 06/19/20 22:00 07/01/20 09:19 Miralax (For Daily Use) - PO Not Given BID ERMELINDA Sevelamer Carbonate 2.4 gm 06/29/20 17:30 07/01/20 16:57 Renvela Powder Packet - PO 2.4 gm TIDCM ERMELINDA Administration Impression 1. CKD 2. CML 3. AML 4. pleural effusions 5. htn 6. tumor lysis 7. charisse 8. hyperkalemia 9. acuter resp failure Plan - renal function worsening - family are meeting with ICU team to discuss GOC today - cont to monitor renal function - repeat labs in am - pt likely with atn - cont with pressors to a map of 65 - monitor bicarb - cont vent support
--- NOTE | 2020-07-01 18:05 | PN ---
Physical Exam: SUBJECTIVE: Patient seen and examined sedated and intubated. Today, family had meeting where goals of care was discussed with oncology team, palliative team, pt's fiance (proxy), pt's nephew, pt's sister, and myself. Pt hospital course and grim prognosis was acknowledged by family. Family wanted time to make decision. OBJECTIVE: GENERAL: The patient is intubated and sedated . HEAD: Normal with no signs of trauma. ENT: Ears normal, nares patent, intubated NECK: Trachea midline, supple. LUNGS: bilateral rhonchi improved from 06/24 HEART: irregular rate and rhythm, S1, S2 without murmur, rub or gallop. ABDOMEN: distended no grimacing, splenomegaly EXTREMITIES: 2+ pulses bilateral lower ext 2+ edema. With RUE also has lynn a SKIN: Warm, dry, normal turgor, no rashes or lesions note Vital Signs Period Temp Pulse Resp BP Sys/Carrillo Pulse Ox Last 24 Hr 97.5 F-104 F 94-133 21-27 96-125/40-54 93-127 Laboratory Results - last 24 hr 06/30/20 07/01/20 07/01/20 22:10 03:45 06:30 WBC 26.8 H RBC 2.53 L Hgb 7.0 L Hct 21.3 L MCV 84.3 MCH 27.7 MCHC 32.9 RDW 18.8 H Plt Count 25 L* D MPV 10.3 Absolute Neuts (auto) 18.8 H Neutrophils % 70.1 D Neutrophils % (Manual) 68.8 Band Neutrophils % 0.0 Lymphocytes % 15.3 D Lymphocytes % (Manual) 14.6 D Monocytes % 13.4 H Monocytes % (Manual) 8 Eosinophils % 0.2 D Eosinophils % (Manual) 0.0 Basophils % 1.0 Basophils % (Manual) 0.0 Myelocytes % (Man) 0 D Promyelocytes % (Man) 0 D Blast Cells % (Manual) 1 H D Nucleated RBC % 4 H Metamyelocytes 6 H D Hypochromia 0 Platelet Estimate Decreased Polychromasia 0 Poikilocytosis 0 Basophilic Stippling 1+ Anisocytosis 0 Microcytosis 0 Macrocytosis 0 PT with INR INR PTT (Actin FS) D-Dimer Anticoagulation Therapy No Result Required. No Result Required. Puncture Site Right radial Right radial Patient Temperature 104.1 99.2 ABG pH 7.118 L* 7.164 L* ABG pCO2 37.60 40.30 ABG pO2 75.9 L 73.0 L ABG HCO3 11.9 L 14.2 L ABG O2 Sat (Measured) 90.4 L 90.4 L ABG O2 Content No Result Required. No Result Required. ABG Base Excess -16.4 L -13.5 L Rhett Test Positive Positive Patient On Oxygen Yes Yes O2 Delivery Device Vent Vent Oxygen Flow Rate 50 50% Vent Mode A/c A/c Vent Rate 24 24 Mechanical Rate No Result Required. Yes PEEP 6.0 6.0 Pressure Support Vent 480 480 Sodium Potassium Chloride Carbon Dioxide Anion Gap BUN Creatinine Est GFR (CKD-EPI)AfAm Est GFR (CKD-EPI)NonAf Random Glucose Uric Acid Calcium Phosphorus Magnesium Ferritin Total Bilirubin AST ALT Alkaline Phosphatase LD Total Total Protein Albumin Urine Color Urine Appearance Urine pH Ur Specific [place] Urine Protein Urine Glucose (UA) Urine Ketones Urine Blood Urine Nitrite Urine Bilirubin Urine Urobilinogen Ur Leukocyte Esterase Urine WBC (Auto) Urine RBC (Auto) Urine Casts (Auto) U Pathogenic Cast Auto U Epithel Cells (Auto) Urine Bacteria (Auto) Urine Yeast (Auto) 07/01/20 07/01/20 07/01/20 06:30 06:30 06:30 WBC RBC Hgb Hct MCV MCH MCHC RDW Plt Count MPV Absolute Neuts (auto) Neutrophils % Neutrophils % (Manual) Band Neutrophils % Lymphocytes % Lymphocytes % (Manual) Monocytes % Monocytes % (Manual) Eosinophils % Eosinophils % (Manual) Basophils % Basophils % (Manual) Myelocytes % (Man) Promyelocytes % (Man) Blast Cells % (Manual) Nucleated RBC % Metamyelocytes Hypochromia Platelet Estimate Polychromasia Poikilocytosis Basophilic Stippling Anisocytosis Microcytosis Macrocytosis PT with INR 27.80 H INR 2.34 H PTT (Actin FS) 38.4 H D-Dimer 85040 H Anticoagulation Therapy Puncture Site Patient Temperature ABG pH ABG pCO2 ABG pO2 ABG HCO3 ABG O2 Sat (Measured) ABG O2 Content ABG Base Excess Rhett Test Patient On Oxygen O2 Delivery Device Oxygen Flow Rate Vent Mode Vent Rate Mechanical Rate PEEP Pressure Support Vent Sodium 133 L Potassium 5.0 Chloride 96 L Carbon Dioxide 23 Anion Gap 14 BUN 129.9 H* Creatinine 4.5 H Est GFR (CKD-EPI)AfAm 14.18 Est GFR (CKD-EPI)NonAf 12.23 Random Glucose 365 H Uric Acid 6.7 Calcium 5.8 L* Phosphorus 9.0 H* Magnesium 2.0 Ferritin 21001.8 H Total Bilirubin 1.0 AST 88 H ALT 6 L Alkaline Phosphatase 143 H LD Total 1092 H Total Protein 4.6 L Albumin 1.6 L Urine Color Urine Appearance Urine pH Ur Specific [place] Urine Protein Urine Glucose (UA) Urine Ketones Urine Blood Urine Nitrite Urine Bilirubin Urine Urobilinogen Ur Leukocyte Esterase Urine WBC (Auto) Urine RBC (Auto) Urine Casts (Auto) U Pathogenic Cast Auto U Epithel Cells (Auto) Urine Bacteria (Auto) Urine Yeast (Auto) 07/01/20 07/01/20 10:55 16:30 WBC RBC Hgb Hct MCV MCH MCHC RDW Plt Count MPV Absolute Neuts (auto) Neutrophils % Neutrophils % (Manual) Band Neutrophils % Lymphocytes % Lymphocytes % (Manual) Monocytes % Monocytes % (Manual) Eosinophils % Eosinophils % (Manual) Basophils % Basophils % (Manual) Myelocytes % (Man) Promyelocytes % (Man) Blast Cells % (Manual) Nucleated RBC % Metamyelocytes Hypochromia Platelet Estimate Polychromasia Poikilocytosis Basophilic Stippling Anisocytosis Microcytosis Macrocytosis PT with INR INR PTT (Actin FS) D-Dimer Anticoagulation Therapy No Result Required. Puncture Site Left radial Patient Temperature No Result Required. ABG pH 7.183 L* ABG pCO2 42.50 ABG pO2 72.4 L ABG HCO3 15.6 L ABG O2 Sat (Measured) 90.6 L ABG O2 Content No Result Required. ABG Base Excess -11.8 L Hrett Test Positive Patient On Oxygen Yes O2 Delivery Device Vent Oxygen Flow Rate 50% Vent Mode A/c Vent Rate 25 Mechanical Rate Yes PEEP 6.0 Pressure Support Vent 440 Sodium Potassium Chloride Carbon Dioxide Anion Gap BUN Creatinine Est GFR (CKD-EPI)AfAm Est GFR (CKD-EPI)NonAf Random Glucose Uric Acid Calcium Phosphorus Magnesium Ferritin Total Bilirubin AST ALT Alkaline Phosphatase LD Total Total Protein Albumin Urine Color Dk yellow Urine Appearance Turbid Urine pH 5.0 Ur Specific [place] 1.025 Urine Protein 4+ H Urine Glucose (UA) 1+ H Urine Ketones Negative Urine Blood 3+ H Urine Nitrite Positive H Urine Bilirubin Negative Urine Urobilinogen 0.2 Ur Leukocyte Esterase 1+ H Urine WBC (Auto) 1290 Urine RBC (Auto) 77.6 Urine Casts (Auto) 40 U Pathogenic Cast Auto Few granular U Epithel Cells (Auto) >36 Urine Bacteria (Auto) 65.5 Urine Yeast (Auto) No seen Active Medications Generic Name Dose Route Start Last Admin Trade Name Freq PRN Reason Stop Dose Admin Acetaminophen 1,000 mg 06/30/20 23:27 06/30/20 23:52 Ofirmev Injection - IVPB 07/01/20 23:27 1,000 mg Q6H PRN Administration FEVER Allopurinol 300 mg 06/20/20 10:00 07/01/20 09:19 Zyloprim - PO 300 mg DAILY ERMELINDA Administration Amino Acids 30 ml 06/22/20 17:30 07/01/20 16:57 Prosource No Carb Liquid Pkt PO 30 ml BID@0800,1730 ERMELINDA Administration Artificial Tears 1 drop 06/20/20 10:00 07/01/20 09:19 Artificial Tears OU 1 drop DAILY ERMELINDA Administration Atorvastatin Calcium 20 mg 06/19/20 22:00 06/30/20 21:28 Lipitor - PO 20 mg HS ERMELINDA Administration Docusate Sodium 100 mg 06/22/20 08:55 06/28/20 21:00 Colace Liquid - PO 100 mg Q8H PRN Administration CONSTIPATION Hydrocortisone Sodium Succinate 100 mg 06/30/20 16:00 07/01/20 16:56 Solu-Cortef - IVPUSH 100 mg Q8H ERMELINDA Administration Propofol 1,000,000 mcg in 100 mls @ 2.618 mls/hr 06/20/20 00:30 07/01/20 04:5 6 Diprivan - IVPB 20 mcg/kg/min TITR ERMELINDA 10.473 mls/hr Titration Protocol 5 MCG/KG/MIN Vasopressin 40 units/ Sodium 100 mls @ 5 mls/hr 06/20/20 06:30 07/01/20 11:43 Chloride IVPB 4 units/hr ASDIR ERMELINDA 10 mls/hr Administration Protocol 2 UNITS/HR Norepinephrine Bitartrate 16, 500 mls @ 9.375 mls/hr 06/20/20 08:00 07/01/20 17:03 000 mcg/ Sodium Chloride IV 24 mcg/min TITR ERMELINDA 45 mls/hr Administration Protocol 5 MCG/MIN Fentanyl 500 mcg in 100 mls @ 0.2 mls/hr 06/27/20 06:04 07/01/20 14:00 Sublimaze Ivpb IVPB 50 mcg/hr TITR ERMELINDA 10 mls/hr Administration 1 MCG/HR Phenylephrine HCl 50,000 mcg in 500 mls @ 60 mls/hr 06/30/20 15:45 07/01/20 09:20 Cornell-Synephrine CVP 100 mcg/min TITR ERMELINDA 60 mls/hr Administration Protocol 100 MCG/MIN Meropenem 1 gm/ Dextrose 100 mls @ 200 mls/hr 06/30/20 16:45 07/01/20 16:56 IVPB 200 mls/hr Q24H ERMELINDA Administration Sodium Bicarbonate 150 meq/ 1,150 mls @ 125 mls/hr 07/01/20 02:00 07/01/20 11:44 Dextrose IVPB 125 mls/hr Q9H ERMELINDA Administration Pantoprazole Sodium 40 mg 06/21/20 10:00 07/01/20 09:19 Protonix Iv IVPUSH 40 mg DAILY ERMELINDA Administration Polyethylene Glycol 17 gm 06/19/20 22:00 07/01/20 09:19 Miralax (For Daily Use) - PO Not Given BID ERMELINDA Sevelamer Carbonate 2.4 gm 06/29/20 17:30 07/01/20 16:57 Renvela Powder Packet - PO 2.4 gm TIDCM ERMELINDA Administration ASSESSMENT/PLAN: 70 yo male pmh of htn, hld, 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 Pt intubatedd on 06/19 for hypoxic resp failure Neuro -Pt sedated on Propofol, Fentanyl -CAT scan to be done when stable -Daily sedation vacations to assess mental status Cardio: -Last echo of 06/15/20 normal -Edema likly due to low oncotic pressure from hypoalbuminemia -Foresemide dc -Edema may be fixed with transfusion due to third spacing -Pt on levo 30mcg and vasopressin 6mcg and [id number] due to hypotension pt will monitor for MAP<65 -HTN: Metoprolol and lisinopril dc -Hyperlipidemia: Atorvastatin dc Resp: #ACUTE HYPOXIC RESPIRATORY FAILURE - Pt vented on RR 24, TV:480, PEEP 6, FiO2: 50% Pplat 19 - Monitor LDH, uric acid - titrate pressors to maintain MAP >65 - titrate FiO2 to keep SpO2 >90% - continue volume assist control Renal: #Acute Kidney Injury -Nephro consulted and recommendations made -renal function stable -d/c shiley cath on 06/23 - monitor urine output, creatinine, K, phos - titrate pressors to maintain MAP >65 - taper stress dose steroids - pt has increased kidney failure - start sevelemer - renal function worsening - likely atn - pt pH below 7.15 so gave amp of bicarb and bicarb drip. 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 On Neppro ID - Now on Vancomycin and meropenem (06/30) - Vanc level will be checked in the AM - Tylenol prn 1000 every 8 hrs - Blood cultures recultured on 06/27, no organism growth obtained - Recultured Urine FEN: - Continue volum assist - Hypokalemia improved. Continue to monitor lytes and replete prn - Continue enteral feed Prophylaxis - Heparin 5000 TID - Protonix for PUD #DISPOSITION: -Continue ICU monitoring -GOC conversation was made with family they wanted time to make decision Visit type - Emergency Visit Emergency Visit: Yes ED Registration Date: 06/14/20 Care time: The patient presented to the Emergency Department on the above date and was hospitalized for further evaluation of their emergent condition. - New Patient This patient is new to me today: No - Critical Care Critical Care patient: Yes Total Critical Care Time (in minutes): 36 Critical Care Statement: The care of this patient involved high complexity decision making to prevent further life threatening deterioration of the patient's condition and/or to evaluate & treat vital organ system(s) failure or risk of failure. - Medication Review Med list reviewed for High Risk Meds patients 65 and older: Yes ATTENDING PHYSICIAN STATEMENT I saw and evaluated the patient. I reviewed the resident's note and discussed the case with the resident. I agree with the resident's findings and plan as documented. SUBJECTIVE: OBJECTIVE: ASSESSMENT AND PLAN:
[2020-07-01] MEDS ORDERED: PHENYLEPHRINE HCL 10 MG/1 ML SINGLE DOSE VIAL ONE (18:31)
[2020-07-01] MEDS ORDERED: FENTANYL IVPB 500 MCG/100 ML BAG IVPB ONE (20:32)
[2020-07-01] MEDS: ATORVASTATIN CA 20 MG TABLET (FP) PO SCH (21:24)
[2020-07-02] MEDS: PROPOFOL 1,000,000 MCG/100 ML VIAL IVPB SCH (00:30)
[2020-07-02] MEDS: HYDROCORTISONE SOD SUCCINATE 100 MG/2 ML VIAL IVPUSH SCH ×2 (00:36→09:10)
[2020-07-02] MEDS ORDERED: ACETAMINOPHEN 1000 MG/100 ML VIAL (NON FORMULARY) IVPB PRN (01:04)
[2020-07-02 02:00] LABS: ARTERIAL BLD GAS O2 SATURATION 89.7 mmHg (95-98); ARTERIAL BLOOD GAS BASE EXCESS -10.4 mmol/L (-2-2); ARTERIAL BLOOD GAS PO2 69.2 mmHg (80-100)
[2020-07-02 02:10] LABS: ALLENS TEST POSITIVE
[2020-07-02 02:11] LABS: PT'S TEMP 100.0 F; VENT MODE A/C; VENT RATE 24
[2020-07-02 02:17] LABS: ARTERIAL BLOOD GAS pH 7.197 (7.350-7.450)
[2020-07-02] MEDS ORDERED: SODIUM BICARBONATE 8.4% 50 MEQ/50 ML VIAL IV ONE (02:49)
[2020-07-02] MEDS ORDERED: SODIUM BICARBONATE 8.4% - 100 ML ONE (03:01)
[2020-07-02] MEDS ORDERED: ADENOSINE 6 MG/2 ML VIAL IVPUSH ONE ×3 (03:14→03:34)
[2020-07-02] MEDS ORDERED: AMIODARONE HCL 150 MG/3 ML VIAL IVPUSH ONE (03:46)
[2020-07-02] MEDS ORDERED: AMIODARONE IN DEXTROSE,ISO-OSM 150 MG/100 ML BAG ONE (03:47)
[2020-07-02] MEDS ORDERED: MAGNESIUM 1GM/D5W - 1 GM/100 ML IVPB IVPB ONE ×2 (04:14→07:30)
[2020-07-02 04:38] LABS: BASO % 0.3 % (0-2.0); EOS % 0.1 % (0-4.5); LYMPH % 5.6 % (8-40); MCH 30.4 pg (25.7-33.7); MCHC 36.2 g/dl (32.0-35.9); MEAN CELL VOLUME 83.9 fl (80-96); MEAN PLT VOLUME 10.7 fl (7.5-11.1); RBC 2.15 M/mm3 (4.00-5.60); RDW 19.2 % (11.9-15.9)
[2020-07-02 04:46] LABS: INR 2.24 (0.83-1.09); PROTHROMBIN TIME (PATIENT) 26.7 SEC (9.7-13.0)
[2020-07-02 04:48] LABS: ACTIVATED PTT 34.4 SECONDS (25.2-36.5)
[2020-07-02] MEDS: SODIUM BICARBONATE 8.4% - 150 MEQ in DEXTROSE 5%-WATER - 1,000 ML IVPB SCH (05:00)
[2020-07-02 05:02] LABS: PLATELET COUNT 17 K/MM3 (134-434)
[2020-07-02 05:03] LABS: HEMOGLOBIN 6.5 GM/dL (11.7-16.9)
[2020-07-02] MEDS ORDERED: METOPROLOL TARTRATE 5 MG/5 ML VIAL IVPUSH ONE (05:18)
[2020-07-02 06:44] LABS: ARTERIAL BLOOD GAS BASE EXCESS -8.9 mmol/L (-2-2); ARTERIAL BLOOD GAS PO2 75.1 mmHg (80-100)
[2020-07-02] MEDS ORDERED: MAGNESIUM SULF 50% (8.12 MEQ/2 ML-1 GM VIAL) IVPB ONE (07:09)
[2020-07-02 07:15] LABS: ALLENS TEST POSITIVE; VENT MODE A/C
[2020-07-02 07:16] LABS: VENT RATE 20
[2020-07-02 07:24] LABS: ARTERIAL BLOOD GAS pH 7.171 (7.350-7.450)
--- NOTE | 2020-07-02 07:32 | PN ---
Physical Exam: SUBJECTIVE: Patient seen and examined intubated and sedated. Overnight pt went into afib and started going hypotensive with full dose pressors. Pt usman who is the proxy was called due to grim prognosis who states over phone that they will be signing the DNR later today and that if he does code before they come in that they do not want to be resuscitated. OBJECTIVE: GENERAL: The patient is intubated and sedated . HEAD: Normal with no signs of trauma. ENT: Ears normal, nares patent, intubated NECK: Trachea midline, supple. LUNGS: bilateral rhonchi improved from 06/24 HEART: irregular rate and rhythm, S1, S2 without murmur, rub or gallop. ABDOMEN: distended no grimacing, splenomegaly EXTREMITIES: 2+ pulses bilateral lower ext 2+ edema. With RUE also has lynn a SKIN: Warm, dry, normal turgor, no rashes or lesions note Vital Signs Period Temp Pulse Resp BP Sys/Carrillo Pulse Ox Last 24 Hr 97.5 F-100.6 F 95-113 20-26 104-134/44-54 93-100 Laboratory Results - last 24 hr 07/01/20 07/01/20 07/01/20 06:30 06:30 06:30 WBC 26.8 H RBC 2.53 L Hgb 7.0 L Hct 21.3 L MCV 84.3 MCH 27.7 MCHC 32.9 RDW 18.8 H Plt Count 25 L* D MPV 10.3 Absolute Neuts (auto) 18.8 H Neutrophils % 70.1 D Neutrophils % (Manual) 68.8 Band Neutrophils % 0.0 Lymphocytes % 15.3 D Lymphocytes % (Manual) 14.6 D Monocytes % 13.4 H Monocytes % (Manual) 8 Eosinophils % 0.2 D Eosinophils % (Manual) 0.0 Basophils % 1.0 Basophils % (Manual) 0.0 Myelocytes % (Man) 0 D Promyelocytes % (Man) 0 D Blast Cells % (Manual) 1 H D Nucleated RBC % 4 H Metamyelocytes 6 H D Hypochromia 0 Platelet Estimate Decreased Polychromasia 0 Poikilocytosis 0 Basophilic Stippling 1+ Anisocytosis 0 Microcytosis 0 Macrocytosis 0 PT with INR 27.80 H INR 2.34 H PTT (Actin FS) 38.4 H D-Dimer 12491 H Anticoagulation Therapy Puncture Site Patient Temperature ABG pH ABG pCO2 ABG pO2 ABG HCO3 ABG O2 Sat (Measured) ABG O2 Content ABG Base Excess Rhett Test Patient On Oxygen O2 Delivery Device Oxygen Flow Rate Vent Mode Vent Rate Mechanical Rate PEEP Pressure Support Vent Sodium Potassium Chloride Carbon Dioxide Anion Gap BUN Creatinine Est GFR (CKD-EPI)AfAm Est GFR (CKD-EPI)NonAf Random Glucose Uric Acid Calcium Phosphorus Magnesium Ferritin Total Bilirubin AST ALT Alkaline Phosphatase LD Total Total Protein Albumin Urine Color Urine Appearance Urine pH Ur Specific [place] Urine Protein Urine Glucose (UA) Urine Ketones Urine Blood Urine Nitrite Urine Bilirubin Urine Urobilinogen Ur Leukocyte Esterase Urine WBC (Auto) Urine RBC (Auto) Urine Casts (Auto) U Pathogenic Cast Auto U Epithel Cells (Auto) Urine Bacteria (Auto) Urine Yeast (Auto) Random Vancomycin Blood Type Antibody Screen Crossmatch 07/01/20 07/01/20 07/01/20 06:30 10:55 16:30 WBC RBC Hgb Hct MCV MCH MCHC RDW Plt Count MPV Absolute Neuts (auto) Neutrophils % Neutrophils % (Manual) Band Neutrophils % Lymphocytes % Lymphocytes % (Manual) Monocytes % Monocytes % (Manual) Eosinophils % Eosinophils % (Manual) Basophils % Basophils % (Manual) Myelocytes % (Man) Promyelocytes % (Man) Blast Cells % (Manual) Nucleated RBC % Metamyelocytes Hypochromia Platelet Estimate Polychromasia Poikilocytosis Basophilic Stippling Anisocytosis Microcytosis Macrocytosis PT with INR INR PTT (Actin FS) D-Dimer Anticoagulation Therapy No Result Required. Puncture Site Left radial Patient Temperature No Result Required. ABG pH 7.183 L* ABG pCO2 42.50 ABG pO2 72.4 L ABG HCO3 15.6 L ABG O2 Sat (Measured) 90.6 L ABG O2 Content No Result Required. ABG Base Excess -11.8 L Rhett Test Positive Patient On Oxygen Yes O2 Delivery Device Vent Oxygen Flow Rate 50% Vent Mode A/c Vent Rate 25 Mechanical Rate Yes PEEP 6.0 Pressure Support Vent 440 Sodium 133 L Potassium 5.0 Chloride 96 L Carbon Dioxide 23 Anion Gap 14 BUN 129.9 H* Creatinine 4.5 H Est GFR (CKD-EPI)AfAm 14.18 Est GFR (CKD-EPI)NonAf 12.23 Random Glucose 365 H Uric Acid 6.7 Calcium 5.8 L* Phosphorus 9.0 H* Magnesium 2.0 Ferritin 96973.8 H Total Bilirubin 1.0 AST 88 H ALT 6 L Alkaline Phosphatase 143 H LD Total 1092 H Total Protein 4.6 L Albumin 1.6 L Urine Color Dk yellow Urine Appearance Turbid Urine pH 5.0 Ur Specific [place] 1.025 Urine Protein 4+ H Urine Glucose (UA) 1+ H Urine Ketones Negative Urine Blood 3+ H Urine Nitrite Positive H Urine Bilirubin Negative Urine Urobilinogen 0.2 Ur Leukocyte Esterase 1+ H Urine WBC (Auto) 1290 Urine RBC (Auto) 77.6 Urine Casts (Auto) 40 U Pathogenic Cast Auto Few granular U Epithel Cells (Auto) >36 Urine Bacteria (Auto) 65.5 Urine Yeast (Auto) No seen Random Vancomycin Blood Type Antibody Screen Crossmatch 07/02/20 07/02/20 07/02/20 01:30 04:15 04:15 WBC 19.0 H RBC 2.15 L Hgb 6.5 L* Hct 18.0 L D MCV 83.9 MCH 30.4 MCHC 36.2 H RDW 19.2 H Plt Count 17 L* D MPV 10.7 Absolute Neuts (auto) 17.5 H Neutrophils % 92.0 H D Neutrophils % (Manual) Band Neutrophils % Lymphocytes % 5.6 L D Lymphocytes % (Manual) Monocytes % 2.0 L D Monocytes % (Manual) Eosinophils % 0.1 Eosinophils % (Manual) Basophils % 0.3 Basophils % (Manual) Myelocytes % (Man) Promyelocytes % (Man) Blast Cells % (Manual) Nucleated RBC % 1 H Metamyelocytes Hypochromia Platelet Estimate Polychromasia Poikilocytosis Basophilic Stippling Anisocytosis Microcytosis Macrocytosis PT with INR INR PTT (Actin FS) D-Dimer Anticoagulation Therapy No Result Required. Puncture Site Left radial Patient Temperature 100.0 f ABG pH 7.197 L* ABG pCO2 44.70 ABG pO2 69.2 L ABG HCO3 17.0 L ABG O2 Sat (Measured) 89.7 L ABG O2 Content No Result Required. ABG Base Excess -10.4 L Rhett Test Positive Patient On Oxygen Yes O2 Delivery Device Vent Oxygen Flow Rate 50% Vent Mode A/c Vent Rate 24 Mechanical Rate Yes PEEP 6.0 Pressure Support Vent 480 Sodium Potassium Chloride Carbon Dioxide Anion Gap BUN Creatinine Est GFR (CKD-EPI)AfAm Est GFR (CKD-EPI)NonAf Random Glucose Uric Acid Calcium Phosphorus Magnesium Ferritin Total Bilirubin AST ALT Alkaline Phosphatase LD Total Total Protein Albumin Urine Color Urine Appearance Urine pH Ur Specific [place] Urine Protein Urine Glucose (UA) Urine Ketones Urine Blood Urine Nitrite Urine Bilirubin Urine Urobilinogen Ur Leukocyte Esterase Urine WBC (Auto) Urine RBC (Auto) Urine Casts (Auto) U Pathogenic Cast Auto U Epithel Cells (Auto) Urine Bacteria (Auto) Urine Yeast (Auto) Random Vancomycin 17.9 Blood Type Antibody Screen Crossmatch 07/02/20 07/02/20 07/02/20 04:15 04:15 05:10 WBC RBC Hgb Hct MCV MCH MCHC RDW Plt Count MPV Absolute Neuts (auto) Neutrophils % Neutrophils % (Manual) Band Neutrophils % Lymphocytes % Lymphocytes % (Manual) Monocytes % Monocytes % (Manual) Eosinophils % Eosinophils % (Manual) Basophils % Basophils % (Manual) Myelocytes % (Man) Promyelocytes % (Man) Blast Cells % (Manual) Nucleated RBC % Metamyelocytes Hypochromia Platelet Estimate Polychromasia Poikilocytosis Basophilic Stippling Anisocytosis Microcytosis Macrocytosis PT with INR 26.70 H INR 2.24 H PTT (Actin FS) 34.4 D-Dimer Anticoagulation Therapy Puncture Site Patient Temperature ABG pH ABG pCO2 ABG pO2 ABG HCO3 ABG O2 Sat (Measured) ABG O2 Content ABG Base Excess Rhett Test Patient On Oxygen O2 Delivery Device Oxygen Flow Rate Vent Mode Vent Rate Mechanical Rate PEEP Pressure Support Vent Sodium Potassium 3.7 Chloride 75 L Carbon Dioxide 22 Anion Gap BUN Creatinine 3.9 H Est GFR (CKD-EPI)AfAm 16.86 Est GFR (CKD-EPI)NonAf 14.54 Random Glucose Uric Acid Calcium Phosphorus 8.6 H Magnesium 1.5 L Ferritin Total Bilirubin 1.4 H AST ALT Alkaline Phosphatase LD Total 903 H Total Protein Albumin 1.1 L Urine Color Urine Appearance Urine pH Ur Specific [place] Urine Protein Urine Glucose (UA) Urine Ketones Urine Blood Urine Nitrite Urine Bilirubin Urine Urobilinogen Ur Leukocyte Esterase Urine WBC (Auto) Urine RBC (Auto) Urine Casts (Auto) U Pathogenic Cast Auto U Epithel Cells (Auto) Urine Bacteria (Auto) Urine Yeast (Auto) Random Vancomycin Blood Type O POSITIVE Antibody Screen Negative Crossmatch See Detail 07/02/20 05:45 WBC RBC Hgb Hct MCV MCH MCHC RDW Plt Count MPV Absolute Neuts (auto) Neutrophils % Neutrophils % (Manual) Band Neutrophils % Lymphocytes % Lymphocytes % (Manual) Monocytes % Monocytes % (Manual) Eosinophils % Eosinophils % (Manual) Basophils % Basophils % (Manual) Myelocytes % (Man) Promyelocytes % (Man) Blast Cells % (Manual) Nucleated RBC % Metamyelocytes Hypochromia Platelet Estimate Polychromasia Poikilocytosis Basophilic Stippling Anisocytosis Microcytosis Macrocytosis PT with INR INR PTT (Actin FS) D-Dimer Anticoagulation Therapy No Result Required. Puncture Site Patient Temperature No Result Required. ABG pH ABG pCO2 ABG pO2 ABG HCO3 ABG O2 Sat (Measured) ABG O2 Content No Result Required. ABG Base Excess Rhett Test Patient On Oxygen O2 Delivery Device Oxygen Flow Rate Vent Mode Vent Rate Mechanical Rate PEEP Pressure Support Vent Sodium Potassium Chloride Carbon Dioxide Anion Gap BUN Creatinine Est GFR (CKD-EPI)AfAm Est GFR (CKD-EPI)NonAf Random Glucose Uric Acid Calcium Phosphorus Magnesium Ferritin Total Bilirubin AST ALT Alkaline Phosphatase LD Total Total Protein Albumin Urine Color Urine Appearance Urine pH Ur Specific [place] Urine Protein Urine Glucose (UA) Urine Ketones Urine Blood Urine Nitrite Urine Bilirubin Urine Urobilinogen Ur Leukocyte Esterase Urine WBC (Auto) Urine RBC (Auto) Urine Casts (Auto) U Pathogenic Cast Auto U Epithel Cells (Auto) Urine Bacteria (Auto) Urine Yeast (Auto) Random Vancomycin Blood Type Antibody Screen Crossmatch Active Medications Generic Name Dose Route Start Last Admin Trade Name Freq PRN Reason Stop Dose Admin Acetaminophen 1,000 mg 07/02/20 01:04 07/02/20 01:36 Ofirmev Injection - IVPB 07/03/20 01:04 1,000 mg Q6H PRN Administration FEVER Allopurinol 300 mg 06/20/20 10:00 07/01/20 09:19 Zyloprim - PO 300 mg DAILY ERMELINDA Administration Amino Acids 30 ml 06/22/20 17:30 07/01/20 16:57 Prosource No Carb Liquid Pkt PO 30 ml BID@0800,1730 ERMELINDA Administration Artificial Tears 1 drop 06/20/20 10:00 07/01/20 09:19 Artificial Tears OU 1 drop DAILY ERMELINDA Administration Atorvastatin Calcium 20 mg 06/19/20 22:00 07/01/20 21:24 Lipitor - PO 20 mg HS ERMELINDA Administration Docusate Sodium 100 mg 06/22/20 08:55 06/28/20 21:00 Colace Liquid - PO 100 mg Q8H PRN Administration CONSTIPATION Hydrocortisone Sodium Succinate 100 mg 06/30/20 16:00 07/02/20 00:36 Solu-Cortef - IVPUSH 100 mg Q8H ERMELINDA Administration Propofol 1,000,000 mcg in 100 mls @ 2.618 mls/hr 06/20/20 00:30 07/02/20 00:30 Diprivan - IVPB 15 mcg/kg/min TITR ERMELINDA 7.854 mls/hr Administration Protocol 5 MCG/KG/MIN Vasopressin 40 units/ Sodium 100 mls @ 5 mls/hr 06/20/20 06:30 07/01/20 11:43 Chloride IVPB 4 units/hr ASDIR ERMELINDA 10 mls/hr Administration Protocol 2 UNITS/HR Norepinephrine Bitartrate 16, 500 mls @ 9.375 mls/hr 06/20/20 08:00 07/01/20 17:03 000 mcg/ Sodium Chloride IV 24 mcg/min TITR ERMELINDA 45 mls/hr Administration Protocol 5 MCG/MIN Fentanyl 500 mcg in 100 mls @ 0.2 mls/hr 06/27/20 06:04 07/01/20 14:00 Sublimaze Ivpb IVPB 50 mcg/hr TITR ERMELINDA 10 mls/hr Administration 1 MCG/HR Phenylephrine HCl 50,000 mcg in 500 mls @ 60 mls/hr 06/30/20 15:45 07/01/20 21:22 Cornell-Synephrine CVP 100 mcg/min TITR ERMELINDA 60 mls/hr Administration Protocol 100 MCG/MIN Meropenem 1 gm/ Dextrose 100 mls @ 200 mls/hr 06/30/20 16:45 07/01/20 16:56 IVPB 200 mls/hr Q24H ERMELINDA Administration Sodium Bicarbonate 150 meq/ 1,150 mls @ 125 mls/hr 07/01/20 02:00 07/02/20 05:00 Dextrose IVPB 125 mls/hr Q9H ERMELINDA Administration Magnesium Sulfate/Dextrose 1 gm in 100 mls @ 100 mls/hr 07/02/20 07:30 Magnesium 1gm/D5w - IVPB 07/02/20 08:29 ONCE ONE Pantoprazole Sodium 40 mg 06/21/20 10:00 07/01/20 09:19 Protonix Iv IVPUSH 40 mg DAILY ERMELINDA Administration Polyethylene Glycol 17 gm 06/19/20 22:00 07/01/20 21:24 Miralax (For Daily Use) - PO Not Given BID ERMELINDA Sevelamer Carbonate 2.4 gm 06/29/20 17:30 07/01/20 16:57 Renvela Powder Packet - PO 2.4 gm TIDCM ERMELINDA Administration ASSESSMENT/PLAN: 70 yo male pmh of htn, hld, 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 Pt intubatedd on 06/19 for hypoxic resp failure Neuro -Pt sedated on Propofol, Fentanyl -CAT scan to be done when stable Cardio: -Last echo of 06/15/20 normal -Edema likly due to low oncotic pressure from hypoalbuminemia -Edema may be fixed with transfusion due to third spacing -Pt on levo 24mcg and vasopressin 2mcg and phenylephrine 30 due to hypotension pt will monitor for MAP<65 -HTN: Metoprolol and lisinopril dc -Hyperlipidemia: Atorvastatin dc - vasopressin 6 units, phenylephrine 100 Norepinephrine 30 units _ pt went into svt/rapid afib over night pt was pushed adenosine then put on amiodoranoe drip\ - pt proxy wants palliative care so will hold pressors Resp: #ACUTE HYPOXIC RESPIRATORY FAILURE - Pt vented on RR 20, TV 480 PEEP 8 FiO2 80% pt saturation went down last night so pt vent settings were changed - Pt wants palliative care so monitor resp rate and plan to extubate Renal: #Acute Kidney Injury -Nephro consulted and recommendations made -renal function stable -d/c shiley cath on 06/23 - monitor urine output, creatinine, K, phos - titrate pressors to maintain MAP >65 - taper stress dose steroids - pt has increased kidney failure - start sevelemer - renal function worsening - likely atn - pt pH below 7.15 so gave amp of bicarb and bicarb drip. 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 causing inc K and phos -Will follow Uric acid and LDH due to tumor lysis syndrome and treat accordingly -Pt on 300 mg of allopurinorl -Blood cultures: no growth obtained -Anemia: Transfuse prn to keep Hgb < 7- transfusion made today (06/29) - Started pt back on hydrea -Transfuse if bleeding or platelets < 30,000 as patient febrile and platelets dysfunctional- Pt was given on pack of platelets (06/25) (06/26) (06/28) -monitor CBC, CMP, LDH, uric acid daily, and DIC labs as well - PT/PTT/fibrinogen - Pt fiance wants palliative care and no transfusions GI - Pt off feeds due to pressors ID - Now on Vancomycin and meropenem (06/30) - Tylenol prn 1000 every 8 hrs - Blood cultures recultured on 06/27, no organism growth obtained - Recultured Urine FEN: - Continue volum assist - Hypokalemia improved. Continue to monitor lytes and replete prn - Continue enteral feed Prophylaxis - Heparin 5000 TID - Protonix for PUD #DISPOSITION: -Continue ICU monitoring -Pt family has decided to sign DNR/ DNI and do palliative care for pt. - Will continue monitoring but will start palliative care on morphine drip morphine bolus and plan to extubate Visit type - Emergency Visit Emergency Visit: Yes ED Registration Date: 06/14/20 Care time: The patient presented to the Emergency Department on the above date and was hospitalized for further evaluation of their emergent condition. - New Patient This patient is new to me today: No - Critical Care Critical Care patient: Yes Total Critical Care Time (in minutes): 36 Critical Care Statement: The care of this patient involved high complexity decision making to prevent further life threatening deterioration of the patient's condition and/or to evaluate & treat vital organ system(s) failure or risk of failure. - Medication Review Med list reviewed for High Risk Meds patients 65 and older: Yes ATTENDING PHYSICIAN STATEMENT I saw and evaluated the patient. I reviewed the resident's note and discussed the case with the resident. I agree with the resident's findings and plan as documented. SUBJECTIVE: OBJECTIVE: ASSESSMENT AND PLAN:
[2020-07-02 08:05] LABS: ALBUMIN 1.8 g/dl (3.4-5.0); BILIRUBIN,TOTAL 0.9 mg/dL (0.2-1); CREATININE 5.1 mg/dL (0.55-1.3); MAGNESIUM 2.4 mg/dL (1.8-2.4); POTASSIUM 5.1 mmol/L (3.5-5.1); URIC ACID 6.9 mg/dL (2.6-7.2)
[2020-07-02 08:12] LABS: HEMATOCRIT 21.9 % (35.4-49); HEMOGLOBIN 7.1 GM/dL (11.7-16.9); MCHC 32.1 g/dl (32.0-35.9); MEAN CELL VOLUME 83.9 fl (80-96); RBC 2.61 M/mm3 (4.00-5.60); RDW 19.6 % (11.9-15.9); WHITE BLOOD COUNT 25.4 K/mm3 (4.0-10.0)
[2020-07-02] MEDS: AMINO ACIDS/PROTEIN HYDROLYS 30 ML LIQUID.PKT PO SCH (09:10)
[2020-07-02] MEDS: SEVELAMER CARBONATE 2.4 GM POWDER PACKET PO SCH (09:10)
[2020-07-02 09:22] LABS: BLOOD UREA NITROGEN 145.2 mg/dL (7-18); CALCIUM 5.8 mg/dL (8.5-10.1)
[2020-07-02] MEDS ORDERED: morphine SULFATE 4 MG/ML VIAL IVPUSH ONE (09:29)
[2020-07-02] MEDS ORDERED: MORPHINE SULFATE/0.9% NACL/PF 100 MG/100 ML BAG IVPB SCH (09:30)
[2020-07-02 10:21] VITALS: BP 104/64; PULSE 78; TEMP 97.5
--- NOTE | 2020-07-02 11:13 | PN ---
Teaching Attending Note Name of Resident: Rudy Sanabria ATTENDING PHYSICIAN STATEMENT I saw and evaluated the patient. I reviewed the resident's note and discussed the case with the resident. I agree with the resident's findings and plan as documented. SUBJECTIVE: Pt seen and examined in the ICU. Remains intubated, sedated on levophed, va sopressin and phenyephrine gtts. Remains oliguric. Family has decided on comfort measures and compassionate extubation. OBJECTIVE: Vital Signs Period Temp Pulse Resp BP Sys/Carrillo Pulse Ox Last 24 Hr 97.5 F-100.6 F 78-136 20-28 92-134/41-76 93-100 Intake & Output 06/29/20 06/30/20 07/01/20 07/02/20 23:59 23:59 23:59 23:59 Intake Total 4251.4 3356.4 5844 2907 Output Total 154 34 4444 Balance 4151.4 3346.4 3769 2907 Weight 91.354 kg 97.522 kg 98.7 kg 105.007 kg Gen: intubated, sedated Heart: RRR Lung: scattered rhonchi Abd: soft, nontender Ext: + edema CBC, BMP 07/02/20 06:10 07/02/20 06:10 Active Medications Acetaminophen (Ofirmev Injection -) 1,000 mg IVPB Q6H PRN PRN Reason: FEVER Stop: 07/03/20 01:04 Last Admin: 07/02/20 01:36 Dose: 1,000 mg Documented by: Artificial Tears (Artificial Tears) 1 drop OU DAILY ERMELINDA Last Admin: 07/01/20 09:19 Dose: 1 drop Documented by: Atorvastatin Calcium (Lipitor -) 20 mg PO HS ERMELINDA Last Admin: 07/01/20 21:24 Dose: 20 mg Documented by: Fentanyl (Sublimaze Ivpb) 500 mcg in 100 mls @ 0.2 mls/hr IVPB TITR ERMELINDA Last Admin: 07/01/20 14:00 Dose: 50 mcg/hr, 10 mls/hr Documented by: Morphine Sulfate (Morphine 100mg/100ml-0.9% Nacl) 100 mg in 100 mls @ 4 mls/hr IVPB TITR ERMELINDA; Protocol Stop: 07/03/20 09:29 Last Admin: 07/02/20 10:47 Dose: 4 mg/hr, 4 mls/hr Documented by: ASSESSMENT AND PLAN: Acute Hypoxic Respiratory Failure AML Tumor Lysis Syndrome Shock - ?Septic Acute Kidney Injury Hyperkalemia improved Anemia/Thrombocytopenia HTN Hyperlipidemia - for comfort measures and compassionate extubation - discussed with family at bedside and answered all questions
[2020-07-02 11:27] LABS: PHOSPHOROUS 11.4 mg/dL (2.5-4.9)
[2020-07-02 11:30] LABS: PLATELET COUNT 26 K/MM3 (134-434)
[2020-07-02] MEDS: ARTIFICIAL TEARS (POLYVINYL ALCOHOL) OPTH DROPS OU SCH (11:45)
[2020-07-02 11:47] LABS: ANISOCYTOSIS 1+; MACROCYTOSIS 0; PLATELET ESTIMATE DECREASED
--- NOTE | 2020-07-02 14:37 | PN ---
Progress Note, Physician History of Present Illness: Pt seen and examined at bedside. He remains in the ICU. He remains intubated. Family are at bedside. - Objective Vital Signs: Vital Signs Temperature 97.5 F L 07/02/20 10:00 Pulse Rate 78 07/02/20 10:00 Respiratory Rate 25 H 07/02/20 10:00 Blood Pressure 104/64 07/02/20 10:00 O2 Sat by Pulse Oximetry (%) 100 07/02/20 10:00 Constitutional: Yes: Calm, Mild Distress Eyes: Yes: Conjunctiva Clear HENT: Yes: Atraumatic Cardiovascular: Yes: S1, S2 Respiratory: Yes: Mechanically Ventilated Gastrointestinal: Yes: Soft Genitourinary: Yes: García Present Musculoskeletal: Yes: Muscle Weakness Edema: Yes Edema: LUE: 2+, RUE: 2+, LLE: 2+, RLE: 2+ Neurological: Yes: Lethargy Labs: CBC, BMP 07/02/20 06:10 07/02/20 06:10 INR, PTT INR 2.24 (0.83-1.09) H 07/02/20 04:15 Fibrinogen 395.0 mg/dL (238-498) 06/30/20 05:15 Problem List - Problems (1) AML (acute myeloblastic leukemia) Code(s): C92.00 - ACUTE MYELOBLASTIC LEUKEMIA, NOT HAVING ACHIEVED REMISSION (2) CHF (congestive heart failure) Code(s): I50.9 - HEART FAILURE, UNSPECIFIED (3) CML (chronic myelocytic leukemia) Code(s): C92.10 - CHRONIC MYELOID LEUK, BCR/ABL-POSITIVE, NOT ACHIEVE REMIS Assessment/Plan Current Medications Generic Name Dose Route Start Last Admin Trade Name Freq PRN Reason Stop Dose Admin Acetaminophen 1,000 mg 06/30/20 23:27 06/30/20 23:52 Ofirmev Injection - IVPB 07/01/20 23:27 1,000 mg Q6H PRN Administration FEVER Allopurinol 300 mg 06/20/20 10:00 07/01/20 09:19 Zyloprim - PO 300 mg DAILY ERMELINDA Administration Amino Acids 30 ml 06/22/20 17:30 07/01/20 16:57 Prosource No Carb Liquid Pkt PO 30 ml BID@0800,1730 ERMELINDA Administration Artificial Tears 1 drop 06/20/20 10:00 07/01/20 09:19 Artificial Tears OU 1 drop DAILY ERMELINDA Administration Atorvastatin Calcium 20 mg 06/19/20 22:00 06/30/20 21:28 Lipitor - PO 20 mg HS ERMELINDA Administration Docusate Sodium 100 mg 06/22/20 08:55 06/28/20 21:00 Colace Liquid - PO 100 mg Q8H PRN Administration CONSTIPATION Hydrocortisone Sodium Succinate 100 mg 06/30/20 16:00 07/01/20 16:56 Solu-Cortef - IVPUSH 100 mg Q8H ERMELINDA Administration Propofol 1,000,000 mcg in 100 mls @ 2.618 mls/hr 06/20/20 00:30 07/01/20 04:56 Diprivan - IVPB 20 mcg/kg/min TITR ERMELINDA 10.473 mls/hr Titration Protocol 5 MCG/KG/MIN Vasopressin 40 units/ Sodium 100 mls @ 5 mls/hr 06/20/20 06:30 07/01/20 11:43 Chloride IVPB 4 units/hr ASDIR ERMELINDA 10 mls/hr Administration Protocol 2 UNITS/HR Norepinephrine Bitartrate 16, 500 mls @ 9.375 mls/hr 06/20/20 08:00 07/01/20 17:03 000 mcg/ Sodium Chloride IV 24 mcg/min TITR ERMELINDA 45 mls/hr Administration Protocol 5 MCG/MIN Fentanyl 500 mcg in 100 mls @ 0.2 mls/hr 06/27/20 06:04 07/01/20 14:00 Sublimaze Ivpb IVPB 50 mcg/hr TITR ERMELINDA 10 mls/hr Administration 1 MCG/HR Phenylephrine HCl 50,000 mcg in 500 mls @ 60 mls/hr 06/30/20 15:45 07/01/20 09:20 Cornell-Synephrine CVP 100 mcg/min TITR ERMELINDA 60 mls/hr Administration Protocol 100 MCG/MIN Meropenem 1 gm/ Dextrose 100 mls @ 200 mls/hr 06/30/20 16:45 07/01/20 16:56 IVPB 200 mls/hr Q24H ERMELINDA Administration Sodium Bicarbonate 150 meq/ 1,150 mls @ 125 mls/hr 07/01/20 02:00 07/01/20 11:44 Dextrose IVPB 125 mls/hr Q9H ERMELINDA Administration Pantoprazole Sodium 40 mg 06/21/20 10:00 07/01/20 09:19 Protonix Iv IVPUSH 40 mg DAILY ERMELNIDA Administration Polyethylene Glycol 17 gm 06/19/20 22:00 07/01/20 09:19 Miralax (For Daily Use) - PO Not Given BID ERMELINDA Sevelamer Carbonate 2.4 gm 06/29/20 17:30 07/01/20 16:57 Renvela Powder Packet - PO 2.4 gm TIDCM ERMELINDA Administration Impression 1. CKD 2. CML 3. AML 4. pleural effusions 5. htn 6. tumor lysis 7. charisse 8. hyperkalemia 9. acuter resp failure Plan - labs reviewed - family at bedside, care discussed with them, they have decided to go with comfort care - vent support until compassionate extubation - cont ICU management - will follow prn
--- NOTE | 2020-07-02 14:55 | PN ---
Progress Note (short form) - Note Progress Note: Pt seen and examined in ICU at bedside. I was called to patient's bedside that patient Wing Washington Jr. has . No spontaneous movements were present. There was not a response to verbal or tactile stimuli. Pupils were mid dilated an fixed. NO breath sounds were appreciated either lung kapoor. No carotid pulses were palpable. No heart sounds were ausculatated over entire precordium. Pt was pronounced at 11:15 am on 07/02/2020. Pt fiance was notified at bedside at 11:15am. Spoke to Dr. Gould's [employer] Александр Pierson at 11:30 who said she would do note. Pt was DNR/ DNI and wanted comfort care according to proxy. Pt major medical illness was CML transitioned to AML which lead to tumor lysis syndrome, kidney failure and suspected volume overload. PE: - Head: NCAT - Eyes: fixed non responsive to light - Cardiac: no audible pulses on whole precordium - resp no breath sounds -Ext: no pulses on bilateral upper and lower ext
== END 2020-07-02 11:16 | disposition expired | DRG 834 ==
LOC: JER 17:31 → JERBED 06-14 00:21 → JICU 06-14 17:21 → J7W 06-15 17:10 → J4W 06-19 19:41 → JICU 06-19 22:05
PROVIDERS: ADMIT Internal Medicine; ATTEND Family Medicine
PROC: 30233N1 Transfusion of Nonautologous Red Blood Cells into Peripheral Vein, Percutaneous Approach (ICD-10-PCS; 2020-06-14)
PROC: 3E03305 Introduction of Other Antineoplastic into Peripheral Vein, Percutaneous Approach (ICD-10-PCS; 2020-06-15)
PROC: 0CHY7BZ Insertion of Airway into Mouth and Throat, Via Natural or Artificial Opening (ICD-10-PCS; principal; 2020-06-19)
PROC: 5A1955Z Respiratory Ventilation, Greater than 96 Consecutive Hours (ICD-10-PCS; 2020-06-19)
PROC: 0DH67UZ Insertion of Feeding Device into Stomach, Via Natural or Artificial Opening (ICD-10-PCS; 2020-06-19)
PROC: 05HM33Z Insertion of Infusion Device into Right Internal Jugular Vein, Percutaneous Approach (ICD-10-PCS; 2020-06-20)
PROC: B543ZZA Ultrasonography of Right Jugular Veins, Guidance (ICD-10-PCS; 2020-06-20)
PROC: 4A133B1 Monitoring of Arterial Pressure, Peripheral, Percutaneous Approach (ICD-10-PCS; 2020-06-20)
PROC: 4A133J1 Monitoring of Arterial Pulse, Peripheral, Percutaneous Approach (ICD-10-PCS; 2020-06-20)
PROC: 5A1D70Z Performance of Urinary Filtration, Intermittent, Less than 6 Hours Per Day (ICD-10-PCS; 2020-06-20)
PROC: 30233R1 Transfusion of Nonautologous Platelets into Peripheral Vein, Percutaneous Approach (ICD-10-PCS; 2020-06-25)
DX: C92.00 Acute myeloblastic leukemia, not having achieved remission (principal); J96.01 Acute respiratory failure with hypoxia; R65.21 Severe sepsis with septic shock; A41.89 Other specified sepsis; N17.9 Acute kidney failure, unspecified; J98.11 Atelectasis; K55.9 Vascular disorder of intestine, unspecified; I13.0 Hypertensive heart and chronic kidney disease with heart failure and stage 1 through stage 4 chronic kidney disease, or unspecified chronic kidney disease; I10 Essential (primary) hypertension; E78.5 Hyperlipidemia, unspecified; K21.9 Gastro-esophageal reflux disease without esophagitis; G47.30 Sleep apnea, unspecified; M10.9 Gout, unspecified; D69.6 Thrombocytopenia, unspecified; R00.2 Palpitations; R00.0 Tachycardia, unspecified; R14.0 Abdominal distension (gaseous); R50.9 Fever, unspecified; I45.10 Unspecified right bundle-branch block; I25.10 Atherosclerotic heart disease of native coronary artery without angina pectoris; F03.90 Unspecified dementia, unspecified severity, without behavioral disturbance, psychotic disturbance, mood disturbance, and anxiety; R41.82 Altered mental status, unspecified; E87.5 Hyperkalemia; E87.6 Hypokalemia; N18.9 Chronic kidney disease, unspecified; I50.9 Heart failure, unspecified; Z88.0 Allergy status to penicillin; I48.91 Unspecified atrial fibrillation; D63.0 Anemia in neoplastic disease
CPT/HCPCS: 36415; 36430; 36511; 36569; 36600; 71045-TC-FY; 71275-TC; 74018-TC-FY; 74176-TC; 77001-TC-FY; 80048; 80053; 81003; 82272; 82550; 82728; 82803; 82955; 83615; 83735; 83880; 84100; 84484; 84550; 85025; 85027; 85379; 85384; 85610; 85730; 86704; 86706; 86707; 86708; 86709; 86803; 86850; 86900; 86901; 86922; 87040; 87070; 87077; 87086; 87186; 87205; 87340; 87899; 93005; 93010; 93306-TC; 94002; 94660; 99285-25; C1751; G0480; J0131; J0282; J0894; J1644; J8999; P9034; P9038; P9047; P9058; U0003